=== PATIENT | female | born 1950 | race Caucasian/White ===

== ENCOUNTER 2024-10-05 17:08 | Outpatient (CLI) | payer MEDICARE, SELFPAY ==
--- OUTSIDE RECORDS SUMMARY | 2024-10-05 17:13 | XMS_ITS | Clinical Summary ---
Author Organization [employer] [facility] Address [address] [place] [address] Care Team Providers Care Soil Checker Name Role Phone Steven Marcelo MD Unavailable Jayla Ontiveros MD Unavailable [phone] Suzanne Mora APRN Primary Care Provider Allergies Active Allergy Reactions Criticality Noted Date Comments Nsaids (Non-Steroidal Anti-Inflammatory Drug) Hives High 11/26/2017 Single kidney---functioning at 50% Valdecoxib 11/26/2017 Medications amLODIPine (NORVASC) 5 MG tabletIndication s:Malignant neoplasm of lower-inner quadrant of left breast in female, estrogen receptor positive (HCC),Asymptomat ic menopausal state Take 1 tablet (5 mg total) by mouth daily. 08/11/2022 Active Eliquis 5 MG tabletIndication s:Malignant neoplasm of lower-inner quadrant of left breast in female, estrogen receptor positive (HCC),Asymptomat ic menopausal state Take 1 tablet (5 mg total) by mouth 2 (two) times daily. 08/21/2022 Active metoprolol succinate (TOPROL-XL) 25 MG 24 hr tabletIndication s:Malignant neoplasm of lower-inner quadrant of left breast in female, estrogen receptor positive (HCC),Asymptomat ic menopausal state Take 1 tablet (25 mg total) by mouth daily. 06/10/2022 Active cholecalciferol (VITAMIN D3) 125 mcg (5,000 unit) capsule Take by mouth. Active ferrous sulfate 325 (65 FE) MG EC tablet Take 1 tablet (325 mg total) by mouth 2 (two) times daily. 01/31/2023 Active valsartan (DIOVAN) 160 MG tablet Take 1 tablet (160 mg total) by mouth daily. 02/14/2024 Active anastrozole (ARIMIDEX) 1 mg tablet Take 1 tablet (1 mg total) by mouth daily. 90 tablet 3 03/29/2024 Active Active Problems Problem Noted Date Diagnosed Date Elevated TSH 08/13/2024 Assessment & Plan (08/13/2024 3:43 PM EDT): Patient sent for labs for thyroid panel. Subacromial bursitis of left shoulder joint 04/08 Pigmented skin lesion suspicious for malignant n eoplasm 02/08/2023 Localized osteoarthritis of left knee 01/06/2023 At risk for sleep apnea 12/24/2022 Atrial fibrillation 12/24/2022 Disease due to severe acute respiratory syndrome coronavirus 2 (SARS-CoV-2) 12/24/2022 Overview (12/24/2022): 1Problem added by a rule: [id number]. Kidney disease 11/25/2022 Pain of right mastoid 11/14/2022 Acute serous otitis media, r ecurrence not specified, unspecified laterality 11/14/2022 Coronary artery disease invo lving upper [place] heart without angina pectoris, unspecified vessel or lesion type 10/11/2022 Need for shingles vaccine 10/11/2022 Other specified hypothyroidism 10/10/2022 Mixed hyperlipidemia 10/10/2022 Malignant neoplasm of lower- inner quadrant of left breast in female, estrogen receptor positive 09/01/2022 Cancer Staging:Pathologic stage from 08/17/2022:Stage IA(pT1a, pN0(sn), cM0, G1, ER+, ID+, HER2-) - Signed by Osvaldo Flood MD on 09/07/2022 Clinical stage from 09/01/2022:Stage IA(cT1a, cN0(sn), cM0, G1, ER+, ID+, HER2-) - Signed by Jayla Ontiveros MD on 09/01/2022 Asymptomatic menopausal state 09/01/2022 Acute upper respiratory infection 07/22/2021 Sore throat 07/22/2021 Acute headache 04/17/2021 Impairment of balance 04/17/2021 Chronic kidney disease 03/10/2021 Knee pain 11/04/2020 History of colonic polyps 03/10/2020 Osteopenia 03/07/2020 Encounter for screening for cardiovascular disor ders 03/04/2020 Arthritis 03/04/2020 Sick sinus syndrome 03/04/2020 Tubular adenoma of colon 03/04/2020 Sciatica 02/27/2020 Low back pain 01/21/2020 Muscle strain 01/21/2020 Recurrent urinary tract infection 01/21/2020 Acute urinary tract infection 11/13/2019 Anemia 11/13/2019 Dehydration 11/13/2019 Personal history of urinary (tract) infections 0 11/13/2019 Hypertension 03/09/2018 Assessment & Plan (08/13/2024 3:42 PM EDT): Plan/dicussed with patient: 2 gram sodium diet, lose weight, exercise, no smoking, continue home medications and take 81 mg aspirin daily. 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 Discharge Disposition: Home or Self Care 09/06/2024 2:45 PM EDT [facility] [address] [place] [phone] Steven Marcelo MD History of breast cancer (Primary Dx) 09/06/2024 1:51 PM EDT - 09/06/2024 2:59 PM EDT Hospital Encounter [facility] [address] [place] [address] Steven Marcelo MD History of breast cancer Discharge Disposition: Home or Self Care 09/06/2024 Outside Orders [facility] [address] [place] [address] Steven Marcelo MD History of breast cancer (Primary Dx) 08/13/2024 3:30 PM EDT Office Visit [facility] [address] [place] [address] Sree Murry MD Primary hypertension (Primary Dx); Elevated TSH 08/13/2024 Patient Outreach [facility] [address] [place] [address] Stefania Rojo CHW 08/13/2024 Travel from Last 3 Months Immunizations Name Administration Dates Next Due (Shingrix, Recombinant, Adju vanted) Zoster Vaccine IM 10/14/2022(Deferred: Other - Pt will get at the pharmacy) Influenza High Dose Preserva tive Free IM ([id number]) 08/25/2021,07/31/2020 Influenza, High Dose Seasonal 09/21/2022 Pneumococcal Conjugate (Prev bel) 13-Valent 09/28/2019 Pneumococcal Polysaccharide (Pneumovax) 09/28/2020 Tdap 10/14/2022(Deferred: Other - Pt will get at the pharmacy) Family History Medical History Relation Name Comments Breast cancer Neg Hx Ovarian cancer Neg Hx Relation Name Status Comments Father Alive Mother Alive Social History Tobacco Use Types Packs/Day Years Used Date Smoking Tobacco: Never Smokeless Tobacco: Never Tobacco Cessation:Counseling Given: Not Answered Alcohol Use Standard Drinks/Week Comments Not Currently 0 (1 standard drink = 0.6 oz pur e alcohol) Overall Financial Resource Strain (CARDIA) Answe r Date Recorded How hard is it for you to pa y for the very basics like food, housing, medical care, and heating? Not hard at all 08/13/2024 PHQ-2 Answer Date Recorded Patient Health Questionnaire-2 Score 0 01/18/2024 Hunger Vital Sign Answer Date Recorded Within the past 12 months, y ou worried that your food would run out before you got the money to buy more. Never true 08/13/20 24 Within the past 12 months, t he food you bought just didn't last and you didn't have money to get more. Never true 08/13/2024 PRAPARE - Transportation Answer Date Re corded In the past 12 months, has l ack of transportation kept you from medical appointments or from getting medications? No 05/2024 In the past 12 months, has l ack of transportation kept you from meetings, work, or from getting things needed for daily living? No 08/13/2024 Housing Stability Vital Sign Answer Yossi e Recorded In the last 12 months, was t here a time when you were not able to pay the mortgage or rent on time? No 08/13/2024 Number of Places Lived in the Last Year Not on f ile 08/13/2024 In the last 12 months, was t here a time when you did not have a steady place to sleep or slept in a fpc (including now)? No 08/13/2024 Interpersonal Safety Answer Date Record ed Family or friends hurt you Not on file 11/16 Family or friends insult you Not on file 08/2024 Family or friends threaten you Not on file 0 11/16/2023 Family or friends scream or curse at you Not on file 11/16/2023 Housing Stability Answer Date Recorded Living situation today Not on file Living situation problems Not on file 2023 Food Insecurity Answer Date Recorded Food run out past 12 months Not on file 11/07 Food did not last past 12 months Not on file 11/16/2023 Transportation Needs Answer Date Record ed Transportation unreliable past 12 months Not on file 08/14/2024 Employment Answer Date Recorded Help finding and keeping a job Not on file 0 11/16/2023 Family and Community Support Answer Yossi e Recorded Help with Day to Day Activities Not on file 11/16/2023 Feeling Lonely or Isolated Not on file 11/16 Educational Attainment Answer Date Martinez rded Speak language other than Citizen Of [place] at home Not on file 11/16/2023 Want help with school or training Not on file 11/16/2023 Depression Answer Date Recorded PHQ-2 Risk Not on file 11/16/2023 Disabilities Answer Date Recorded Difficulty concentrating Not on file 024 Difficulty doing errands alone Not on file 0 11/16/2023 Substance Use Answer Date Recorded Used prescription meds for non-medical reasons N ot on file 11/16/2023 Used illegal drugs past 12 months Not on file 11/16/2023 Comments No Sex and Gender Information Value Date Recorded Sex Assigned at Not on file Legal Sex Female 4:30 PM CDT Gender Identity Not on file Sexual Orientation Not on file Last Filed Vital Signs Vital Sign Reading Time Taken Comments Blood Pressure 127/83 08/13/2024 3:17 PM EDT Pulse 67 08/13/2024 3:17 PM EDT Temperature 35.9 ??C (96.7 ??F) 08/13/2024 3:17 PM ED T Respiratory Rate 17 07/02/2024 2:37 PM EDT Oxygen Saturation 96% 08/13/2024 3:17 PM EDT Inhaled Oxygen Concentration - - Weight 56.7 kg (125 lb) 08/13/2024 3:17 PM EDT Height 170.2 cm (5' 7 ) 07/02/2024 2:37 PM EDT Body Mass Index 19.58 07/02/2024 2:37 PM EDT Plan of Treatment Upcoming Encounters Date Type Department Care Team (Late st Contact Info) Description 01/15/2025 2:45 PM EDT Office Visit [facility] [place] [phone] [facility] [address] [place] [phone] Jayla Ontiveros MD [address] [place] [address] 09/19/2025 2:30 PM EST Appointment [facility] [address] [place] [address] Health Maintenance Due Date Last Done Comments CT Colonography 1952 Colonoscopy 1952 Colorectal Cancer Screening 1952 FOBT/FIT 1952 Fit-DNA (Cologuard) 1950 Sigmoidoscopy 1952 Statin - ASCVD Risk Prevention 1992 Falls Risk Screening 11/07/2023 10/08/2022 COVID-19 VACCINE ( - season) 2024 10/17/2021, 03/13/2021, 02/11/2021 Influenza Vaccine (#1) 2024 , 08/25/2021, 07/31/2020 DTAP/TDAP/TD VACCINES (1 - Tdap) 01/04/2025 Postponed from 1971 (Patient Refused) Medicare Subsequent Wellness (year 3+) 01/04/2025 01/04/2024 Depression Screening (12+) 01/17/2025 01/18/2024 Tobacco Cessation Counseling and Screening (12+) 09/05/2025 09/05/2024 Breast Cancer Screening 09/06/2025 09/06/20, 09/01/2023, 02/24/2023, Additional history exists DXA SCAN 09/06/2026 09/06/2024, 11/08, 08/07/2020 Pneumococcal 65+ years Completed 09/28/2020, 2018 Hepatitis C Screening Addressed 10/08/2022 Overri dden with the intention of not completing the topic Respiratory Syncytial Virus (RSV) Adult or Discontinued Shingles Vaccine (Zoster) Discontinued Procedures Procedure Name Priority Date/Time Associated Diagnosis Comments DXA BONE DENSITY SPINE AND HIP Routine 09/06/2024 4:02 PM EDT 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 US BREAST RIGHT LIMITED Routine 09/06/2024 3:57 PM EDT History of breast cancer MM DIGITAL MAMMO DIAGNOSTIC WITH JOSE ALBERTO BILATERAL Routine 09/06/2024 2:28 PM EDT History of breast cancer CBC W/PLT COUNT & AUTO DIFFERENTIAL Routine 08/13/2024 3:45 PM EDT Primary hypertension COMPREHENSIVE METABOLIC PANEL Routine 08/13/2024 3:45 PM EDT Primary hypertension T3, FREE Routine 08/13/2024 3:45 PM EDT Elevated TSH T4 Routine 08/13/2024 3:45 PM EDT Elevated TSH TSH Routine 08/13/2024 3:45 PM EDT Elevated TSH from Last 3 Months Results * DXA bone density spine and hip (09/06/2024 4:02 PM EDT) Anatomical Region Laterality Modality Bone Dual-energy X-ra y absorptiometry (DEXA) 09/06/2024 4:26 PM EDT Impressions 09/06/2024 4:35 PM EDT 1. Osteopenia BMD of the lumbar spine. 2. Osteopenia BMD of the left femoral neck. FRAX evaluation gives the risk of a major osteoporotic fracture over 10 years as 9.7% and the risk of a hip fracture as 2.0%. Images reviewed, interpreted, and dictated by Dr. Avila Niño. Transcribed by Agustín Goins PA-C. Narrative 09/06/2024 4:35 PM EDT BONE MINERAL DENSITOMETRY, DEXA SCAN . CLINICAL HISTORY: Osteoporosis screening. COMPARISON: 11/29/2022. FINDINGS: Bone densitometry calculations of the lumbar spine and left femoral neck were obtained. Average BMD for the lumbar spine from L1-L4 is 1.018 g/sq cm. T-score is -1.4. Z-score is 0.5. Lumbar bone mineral density has decreased 6.7% from the prior study. Left femoral neck BMD is 0.791 g/sq cm. T-score is -1.8. Z score is 0.2. Bone mineral density has not statistically significantly changed since the prior study. Procedure Note Olivier Niño MD - 09/06/2024 BONE MINERAL DENSITOMETRY, DEXA SCAN . CLINICAL HISTORY: Osteoporosis screening. COMPARISON: 11/29/2022. FINDINGS: Bone densitometry calculations of the lumbar spine and left femoral neck were obtained. Average BMD for the lumbar spine from L1-L4 is 1.018 g/sq cm. T-score is -1.4. Z-score is 0.5. Lumbar bone mineral density has decreased 6.7% from the prior study. Left femoral neck BMD is 0.791 g/sq cm. T-score is -1.8. Z score is 0.2. Bone mineral density has not statistically significantly changed since the prior study. IMPRESSION: 1. Osteopenia BMD of the lumbar spine. 2. Osteopenia BMD of the left femoral neck. FRAX evaluation gives the risk of a major osteoporotic fracture over 10 years as 9.7% and the risk of a hip fracture as 2.0%. Images reviewed, interpreted, and dictated by Dr. Avila Niño. Transcribed by Agustín Goins PA-C. us Jayla Ontiveros MD IMG DXA ORDERABLES Final Resul t * US BREAST RIGHT LIMITED (09/06/2024 3:57 PM EDT) Anatomical Region Laterality Modality Breast Right Ultrasound 09/06/2024 4:00 PM EDT Impressions 09/06/2024 4:04 PM EDT FINAL IMPRESSION: Stable mammogram. No findings suspicious for malignancy. Bi-RADS: ACR BI-RADS 2: Benign findings. RECOMMENDATIONS: Screening mammography in 12 months This report will serve as the order for the recommended imaging studies/procedures. At our facility, a [place] marker is positioned over a visible skin lesion and a linear marker is The results and recommendations were discussed with the patient on the day of her appointment. In addition, a written report in lay terms, including density notification, ??was given to the patient. Patient information was entered into a reminder system with a target due date for the next mammogram. Narrative 09/06/2024 4:04 PM EDT PROCEDURE: Bilateral diagnostic mammogram with Digital Breast Tomosynthesis (DBT). Focused right ultrasound REASON FOR EXAM: 73-year-old female post left lumpectomy in 2021. Most recently the patient underwent excision of a benign mass in the lower inner quadrant of the left breast. FAMILY HISTORY: ??No family history of breast cancer COMPARISON STUDY: [facility] 2022 through 2015 FINDINGS: Craniocaudal and mediolateral oblique images of both breasts were obtained in 2D and DBT modes. Synthesized views were reconstructed from DBT data. The breast tissue has pattern b (scattered fibroglandular densities). New surgical changes are present in the lower inner quadrant of the left breast. There is no mass, group of calcifications, or distortion to suggest malignancy on the left. Pacemaker battery obscures a portion of the left axilla. On the right areas of increased nodularity effaced with additional spot compression imaging. Ultrasound of the 12:00 region of the left breast was performed superficially due to an area of more focal nodularity. No sonographic finding was present. This examination was reviewed with the benefit of computer aided detection (CAD). us Steven Marcelo MD IMG US ORDERABLES Final Resu lt * MM digital mammo diagnostic with jose alberto bilateral (09/06/2024 2:28 PM EDT) Anatomical Region Laterality Modality Breast Bilateral Mammography 09/06/2024 4:00 PM EDT Impressions 09/06/2024 4:04 PM EDT FINAL IMPRESSION: Stable mammogram. No findings suspicious for malignancy. Bi-RADS: ACR BI-RADS 2: Benign findings. RECOMMENDATIONS: Screening mammography in 12 months This report will serve as the order for the recommended imaging studies/procedures. At our facility, a [place] marker is positioned over a visible skin lesion and a linear marker is The results and recommendations were discussed with the patient on the day of her appointment. In addition, a written report in lay terms, including density notification, ??was given to the patient. Patient information was entered into a reminder system with a target due date for the next mammogram. Narrative 09/06/2024 4:04 PM EDT PROCEDURE: Bilateral diagnostic mammogram with Digital Breast Tomosynthesis (DBT). Focused right ultrasound REASON FOR EXAM: 73-year-old female post left lumpectomy in 2021. Most recently the patient underwent excision of a benign mass in the lower inner quadrant of the left breast. FAMILY HISTORY: ??No family history of breast cancer COMPARISON STUDY: [facility] 2022 through 2015 FINDINGS: Craniocaudal and mediolateral oblique images of both breasts were obtained in 2D and DBT modes. Synthesized views were reconstructed from DBT data. The breast tissue has pattern b (scattered fibroglandular densities). New surgical changes are present in the lower inner quadrant of the left breast. There is no mass, group of calcifications, or distortion to suggest malignancy on the left. Pacemaker battery obscures a portion of the left axilla. On the right areas of increased nodularity effaced with additional spot compression imaging. Ultrasound of the 12:00 region of the left breast was performed superficially due to an area of more focal nodularity. No sonographic finding was present. This examination was reviewed with the benefit of computer aided detection (CAD). us Steven Marcelo MD IMG MAMMOGRAPHY ORDERABLES F inal Result * CBC with platelet count + automated diff (08/13/2024 3:45 PM EDT) WBC 5.5 3.4 - 10.8 x10E3/uL [facility] RBC 4.19 3.77 - 5.28 x10E6/uL [facility] Hemoglobin 12.5 11.1 - 15.9 g/dL [facility] Hematocrit 38.9 34.0 - 46.6 % [facility] MCV 93 79 - 97 fL [facility] MCH 29.8 26.6 - 33.0 pg [facility] MCHC 32.1 31.5 - 35.7 g/dL [facility] RDW 12.9 11.7 - 15.4 % [facility] Platelets 177 150 - 450 x10E3/uL [facility] % Neutros 58 Not Estab. % [facility] % Lymphs 28 Not Estab. % [facility] % Monos 9 Not Estab. % [facility] % Eos 4 Not Estab. % [facility] % Baso 1 Not Estab. % [facility] # Neutros 3.2 1.4 - 7.0 x10E3/uL [facility] # Lymphs 1.6 0.7 - 3.1 x10E3/uL [facility] # Monos 0.5 0.1 - 0.9 x10E3/uL [facility] # Eos 0.2 0.0 - 0.4 x10E3/uL [facility] Baso (Absolute) 0.1 0.0 - 0.2 x10E3/uL [facility] % Immature Grans 0 Not Estab. % [facility] # Immature Grans 0.0 0.0 - 0.1 x10E3/uL [facility] Blood 08/13/2024 3:45 PM EDT 08/13/2024 Narrative [facility] - 08/14/2024 8:12 AM EDT Performed at: ??01 - [address] ??[id number] Ob Scrub Tech: Tomas Arechiga PhD, Phone: ??[phone] Sree Murry MD LAB BLOOD ORDERABLES Final Resul t Performing Organization Address [facility] de Phone Number [facility] * T3, free (08/13/2024 3:45 PM EDT) Triiodothyronin e,Free,Serum 2.8 2.0 - 4.4 pg/mL [facility] Blood 08/13/2024 3:45 PM EDT 08/13/2024 Narrative [facility] - 08/14/2024 8:12 AM EDT Performed at: ??01 - [address] ??[id number] Ob Scrub Tech: Tomas Arechiga PhD, Phone: ??[phone] Sree Murry MD LAB BLOOD ORDERABLES Final Resul t Performing Organization Address [facility] Phone Number [facility] * (ABNORMAL) TSH (08/13/2024 3:45 PM EDT) TSH 4.640(H) 0.450 - 4.500 uIU/mL [facility] Blood 08/13/2024 3:45 PM EDT 08/13/2024 Narrative [facility] - 08/14/2024 8:12 AM EDT Performed at: ??01 - [address] ??[id number] Ob Scrub Tech: Tomas Arechiga PhD, Phone: ??[phone] Sree Murry MD LAB BLOOD ORDERABLES Final Resul t Performing Organization Address [facility] de Phone Number [facility] * T4 (08/13/2024 3:45 PM EDT) Thyroxine (T4) 5.8 4.5 - 12.0 ug/dL [facility] Blood 08/13/2024 3:45 PM EDT 08/13/2024 Narrative [facility] - 08/14/2024 8:12 AM EDT Performed at: ??01 - [facility] ??[id number] Ob Scrub Tech: Tomas Arechiga PhD, Phone: ??[phone] us Sree Murry MD LAB BLOOD ORDERABLES Final Resul t [facility] * (ABNORMAL) Comprehensive metabolic panel (08/13/2024 3:45 PM EDT) Glucose, Serum 89 70 - 99 mg/dL [facility] BUN 24 8 - 27 mg/dL [facility] Creatinine, Serum 1.30(H) 0.57 - 1.00 mg/dL [facility] EGFR 44(L) >59 mL/min/1.7 3 [facility] BUN/Creatinine Ratio 18 12 - 28 [facility] Sodium, Serum 138 134 - 144 mmol/L [facility] Potassium, Serum 4.1 3.5 - 5.2 mmol/L [facility] Chloride, Serum 100 96 - 106 mmol/L [facility] Carbon Dioxide, Total 26 20 - 29 mmol/L [facility] Calcium, Serum 9.7 8.7 - 10.3 mg/dL [facility] Protein, Total, Serum 6.6 6.0 - 8.5 g/dL [facility] Albumin, Serum 4.5 3.8 - 4.8 g/dL [facility] Globulin, Total 2.1 1.5 - 4.5 g/dL [facility] Bilirubin, Total 0.5 0.0 - 1.2 mg/dL [facility] Alkaline Phosphatase, S 101 44 - 121 IU/L [facility] AST (SGOT) 23 0 - 40 IU/L [facility] ALT (SGPT) 13 0 - 32 IU/L [facility] Blood 08/13/2024 3:45 PM EDT 08/13/2024 Narrative [facility] - 08/14/2024 8:12 AM EDT Performed at: ??01 - [facility] [address] ??[id number] Ob Scrub Tech: Tomas Arechiga PhD, Phone: ??[phone] us Sree Murry MD LAB BLOOD ORDERABLES Final Resul t [facility] from Last 3 Months Insurance [employer] MEDICARE PPO Care Teams Soil Checker Relationship Specialty Start Date End Date Suzanne Mora, [employer] ENGINEER [address] [place] [address] PCP - General Family Medicine 01/04/24 Steven Marcelo MD [address] [place] [address] Surgeon General Surgery 09/07/22 Jayla Ontiveros MD [address] [place] [address] Medical Oncologist Hematology and Oncology 09/07/22
[2024-10-05 17:14] LABS: Coronavirus 19, PCR Not Detected (NotDetected); Influenza A, PCR Not Detected (NotDetected); Influenza B, PCR Not Detected (NotDetected)
--- OUTSIDE RECORDS SUMMARY | 2024-10-05 17:14 | XMS_ITS | Encounter Summary ---
Author Organization [employer] [facility] [place] [facility] Address [address] [place] [address] Care Team Providers Care Pull Through Hooker Name Role Phone Steven Marcelo MD Unavailable [phone] Jayla Ontiveros MD Unavailable [phone] Suzanne Mora APRN Primary Care Provider [phone] Encounter Details Date Type Department Care Team (Latest Contact Info) Description 08/13/2024 Travel Social History Tobacco Use Types Packs/Day Years Used Date Smoking Tobacco: Never Smokeless Tobacco: Never Alcohol Use Standard Drinks/Week Comments Not Currently [...] place to sleep or slept in a long-term (including now)? No 08/13/2024 Interpersonal Safety Answer [...] Date Martinez rded Speak language other than Bhutanese at home Not on file 11/16/2023 Want [...] on file Sexual Orientation Not on file documented as of this encounter Plan of Treatment Upcoming Encounters Date Type Department Care Team (Late st Contact Info) Description 01/15/2025 2:45 PM EDT Office Visit [facility] [place] [address] [place] [address] Jayla Ontiveros MD [address] [facility] [address] [place], [place] [id number] 09/19/2025 2:30 PM EST Appointment [facility] Breast Care [address] [place] [address] documented as of this encounter Visit Diagnoses Not on filedocumented in this encounter Care Teams Pull Through Hooker Relationship Specialty Start Date End Date Suzanne Mora, DOUGH BRAKE MACHINE OPERATOR [address] [place] [address] PCP - General Family Medicine 01/04/24 Steven Marcelo MD [address] [facility] [address] [place] [address] Surgeon General Surgery 09/07/22 Jayla Ontiveros MD [address] [facility] [address] [place] [address] Medical Oncologist Hematology and Oncology 09/07/22 documented as of this encounter
--- OUTSIDE RECORDS SUMMARY | 2024-10-05 17:14 | XMS_ITS | Encounter Summary ---
Author Organization [employer] [facility] Address [address] [place] [address] Care Team Providers Care Casino Host Name Role Phone Steven Marcelo MD Unavailable [phone] Jayla Ontiveros MD Unavailable [phone] Suzanne Mora APRN Primary Care Provider Encounter Details Date Type Department Care Team (Late st Contact Info) Description 08/13/2024 Patient Outreach [facility] Primary Care [address] [place] [address] Stefania Rojo CHW [address] [place], [place] [id number] Social History Tobacco Use Types Packs/Day Years [...] place to sleep or slept in a usp (including now)? No 08/13/2024 Interpersonal Safety Answer [...] rded Speak language other than Citizen Of [place] at home Not on file 11/16/2023 Want [...] Description 01/15/2025 2:45 PM EDT Office Visit [facility] [place] [address] [place] [address] Jayla Ontiveros MD [address] [facility] [address] [place], [place] [id number] 09/19/2025 2:30 PM EST Appointment [facility] Breast [facility] [address] [employer] [facility] [address] [place] [address] documented as of this encounter Visit Diagnoses Not on filedocumented in this encounter Care Teams Casino Host Relationship Specialty Start Date End Date Suzanne Mora, SHIPPING COORDINATOR [address] [place] [address] PCP - General Family Medicine 01/04/24 Steven Marcelo MD [address] [place] [address] Surgeon General Surgery 09/07/22 Jayla Ontiveros MD [address] [facility] [address] [place] [address] Medical Oncologist Hematology and Oncology 09/07/22 documented as of this encounter
--- OUTSIDE RECORDS SUMMARY | 2024-10-05 17:14 | XMS_ITS | Encounter Summary ---
Author Organization [employer] Address [address] [place] [address] Care Team Providers Care Chemistry Intern Name Role Phone Steven Marcelo MD Unavailable [phone] Jayla Ontiveros MD Unavailable [phone] Modesta Valadez RN Unavailable Unavailable Suzanne Mora APRN Primary Care Provider Reason for Visit * Reason Comments New patient Ms. Gil is here a s a new patient for consultation for her gallbladder. She was referred from Suzanne Mora for a gallbladder polyp. She states she will have random right upper quadrant pain that radiates into her back. Spicy, fried or greasy foods do seem to trigger the pain. She states this has been going on for over a year. Denies nausea or vomiting. Encounter Details Date Type Department Care Team (Late st Contact Info) Description 03/07/2024 3:30 PM EDT Office Visit [facility] [address] [facility] [address] [place] [address] Steven Ho MD [address] [facility] [address] [place] [address] Gallbladder polyp (Primary Dx) Social History Tobacco Use Types Packs/Day Years Used Date Smoking Tobacco: Never Smokeless Tobacco: Never Tobacco Cessation:Counseling Given: Not Answered Alcohol Use Standard Drinks/Week Comments Not Currently 0 (1 standard drink = 0.6 oz pur e alcohol) PHQ-2 Answer Date Recorded Patient Health Questionnaire-2 Score 0 01/18/2024 Interpersonal Safety Answer Date Record ed Family [...] past 12 months Not on file 11/16/2023 Employment Answer Date Recorded Help finding and keeping a job Not on file 0 11/16/2023 Family and Community Support Answer Yossi e Recorded Help with Day to Day Activities Not on file 11/16/2023 Feeling Lonely or Isolated Not on file 11/16 Educational Attainment Answer Date Martinez rded Speak language other than German at home Not on file 11/16/2023 Want [...] on file documented as of this encounter Last Filed Vital Signs Vital Sign Reading Time Taken Comments Blood Pressure 130/83 03/07/2024 3:26 PM EDT Pulse 69 03/07/2024 3:26 PM EDT Temperature - - Respiratory Rate - - Oxygen Saturation - - Inhaled Oxygen Concentration - - Weight 56.7 kg (125 lb) 03/07/2024 3:26 PM EDT Height 170.2 cm (5' 7 ) 03/07/2024 3:26 PM EDT Body Mass Index 19.58 03/07/2024 3:26 PM EDT documented in this encounter Progress Notes * Steven Ho MD - 03/07/2024 3:30 PM EDT Subjective: Chief Complaint Patient presents with ??? New patient Ms. Gil is here as a new patient for consultation for her gallbladder. She was referred from Suzanne Mora for a gallbladder polyp. She states she will have random right upper quadrant pain thatradiates into her back. Spicy, fried or greasy foods do seem to trigger the pain. She states this has been going on for over a year. Denies nausea or vomiting. HPI Sheron Carvajal 73 y.o. female referred for evaluation of a small gallbladder polyp. She says she is eating well at this time. She apparently had an episode a while back where she had sharp discomfort in the right side after eating. An ultrasound performed showed a 2 mm gallbladder polyp. She feels well at this point and has no complaints. I have reviewed the PMH, SH, FH, Meds and allergies. Current Outpatient Medications: ??? amLODIPine (NORVASC) 5 MG tablet, Take 1 tablet (5 mg total) by mouth daily., Disp: , Rfl: ??? anastrozole (ARIMIDEX) 1 mg tablet, Take 1 tablet (1 mg total) by mouth daily., Disp: , Rfl: ??? cholecalciferol (VITAMIN D3) 125 mcg (5,000 unit) capsule, Take by mouth., Disp: , Rfl: ??? Eliquis 5 MG tablet, Take 1 tablet (5 mg total) by mouth 2 (two) times daily., Disp: , Rfl: ??? ferrous sulfate 325 (65 FE) MG EC tablet, Take 1 tablet (325 mg total) by mouth 2 (two) times daily., Disp: , Rfl: ??? metoprolol succinate (TOPROL-XL) 25 MG 24 hr tablet, Take 1 tablet (25 mg total) by mouth daily., Disp: , Rfl: ??? valsartan (DIOVAN) 160 MG tablet, Take 1 tablet (160 mg total) by mouth daily., Disp: , Rfl: ??? rwuy-TK-eik-ogz-UPC-KQNM-be-mv 1.5 mg iron- 8.73 mg CpID, iron, Disp: , Rfl: Allergies Allergen Reactions ??? Nsaids (Non-Steroidal Anti-Inflammatory Drug) Hives Single kidney---functioning at 50% ??? Valdecoxib Past Surgical History: Procedure Laterality Date ??? BREAST BIOPSY ??? BREAST LUMPECTOMY Left 2021 ??? LUMPECTOMY,SENTINAL NODE Left 08/17/2022 Procedure: LUMPECTOMY, BREAST, WITH SENTINEL LYMPH NODE BIOPSY WITH NEEDLE LOC; Surgeon: Steven Marcelo MD; Location: [facility]; Service: General Surgery; Laterality: Left; ??? pace maker 2019 Past Medical History: Diagnosis Date ??? Anemia ??? Atrial fibrillation (HCC) ??? Chronic kidney disease ??? H/O tubal ligation 1983 ??? Heart disease ??? Hypertension Social History Socioeconomic History ??? Marital status: Single Spouse name: Not on file ??? Number of children: Not on file ??? Years of education: Not on file ??? Highest education level: Not on file Occupational History ??? Not on file Tobacco Use ??? Smoking status: Never ??? Smokeless tobacco: Never Vaping Use ??? Vaping Use: Never used Substance and Sexual Activity ??? Alcohol use: Not Currently ??? Drug use: Never ??? Sexual activity: Never Other Topics Concern ??? Not on file Social History Narrative ??? Not on file Social Determinants of Health Financial Resource Strain: Not on file Food Insecurity: No Food Insecurity (11/16/2023) Food Insecurity ??? : Not on file ??? : Not on file Transportation Needs: Not on file Physical Activity: Not on file Stress: Not on file Social Connections: Low Risk (11/16/2023) Family and Community Support ??? : Not on file ??? : Not on file Intimate Partner Violence: Not on file Housing Stability: Low Risk (11/16/2023) Housing Stability ??? : Not on file ??? : Not on file Family History Problem Relation Age of Onset ??? Breast cancer Neg Hx ??? Ovarian cancer Neg Hx Results: Recent Results (from the past 1008 hour(s)) T3, free Collection Time: 02/07/24 3:30 PM Result Value Ref Range Triiodothyronine,Free,Serum 3.1 2.0 - 4.4 pg/mL T4, free Collection Time: 02/07/24 3:30 PM Result Value Ref Range T4,Free(Direct) 1.11 0.82 - 1.77 ng/dL Thyroxine (T4) 6.6 4.5 - 12.0 ug/dL TSH Collection Time: 02/07/24 3:30 PM Result Value Ref Range TSH 5.710 (H) 0.450 - 4.500 uIU/mL CBC (Hemogram only) Collection Time: 02/07/24 3:30 PM Result Value Ref Range WBC 5.6 3.4 - 10.8 x10E3/uL RBC 4.25 3.77 - 5.28 x10E6/uL Hemoglobin 12.7 11.1 - 15.9 g/dL Hematocrit 38.0 34.0 - 46.6 % MCV 89 79 - 97 fL MCH 29.9 26.6 - 33.0 pg MCHC 33.4 31.5 - 35.7 g/dL RDW 12.6 11.7 - 15.4 % Platelets 194 150 - 450 x10E3/uL Comprehensive metabolic panel Collection Time: 02/07/24 3:30 PM Result Value Ref Range Glucose, Serum 81 70 - 99 mg/dL BUN 15 8 - 27 mg/dL Creatinine, Serum 1.31 (H) 0.57 - 1.00 mg/dL EGFR 44 (L) >59 mL/min/1.73 BUN/Creatinine Ratio 11 (L) 12 - 28 Sodium, Serum 137 134 - 144 mmol/L Potassium, Serum 4.4 3.5 - 5.2 mmol/L Chloride, Serum 98 96 - 106 mmol/L Carbon Dioxide, Total 23 20 - 29 mmol/L Calcium, Serum 9.8 8.7 - 10.3 mg/dL Protein, Total, Serum 6.9 6.0 - 8.5 g/dL Albumin, Serum 4.5 3.8 - 4.8 g/dL Globulin, Total 2.4 1.5 - 4.5 g/dL A/G Ratio 1.9 1.2 - 2.2 Bilirubin, Total 0.6 0.0 - 1.2 mg/dL Alkaline Phosphatase, S 94 44 - 121 IU/L AST (SGOT) 23 0 - 40 IU/L ALT (SGPT) 14 0 - 32 IU/L Review of Systems Constitutional: Negative. HENT: Negative. Eyes: Negative. Respiratory: Negative. Cardiovascular: Negative. Gastrointestinal: Positive for abdominal pain. Endocrine: Negative. Genitourinary: Negative. Musculoskeletal: Negative. Skin: Negative. Allergic/Immunologic: Negative. Neurological: Negative. Hematological: Negative. Psychiatric/Behavioral: Negative. Objective: BP 130/83 Pulse 69 Ht 1.702 m (5' 7 ) Wt 56.7 kg (125 lb) BMI 19.58 kg/m?? Physical Exam Constitutional: Appearance: Normal appearance. HENT: Head: Normocephalic and atraumatic. Eyes: General: No scleral icterus. Extraocular Movements: Extraocular movements intact. Pupils: Pupils are equal, round, and reactive to light. Cardiovascular: Rate and Rhythm: Normal rate and regular rhythm. Pulses: Normal pulses. Heart sounds: Normal heart sounds. No murmur heard. Pulmonary: Effort: Pulmonary effort is normal. Breath sounds: Normal breath sounds. No wheezing or rhonchi. Abdominal: General: Bowel sounds are normal. There is no distension. Palpations: Abdomen is soft. There is no mass. Tenderness: There is no abdominal tenderness. Hernia: No hernia is present. Musculoskeletal: General: Normal range of motion. Cervical back: Normal range of motion and neck supple. Skin: General: Skin is warm and dry. Coloration: Skin is not jaundiced. Neurological: General: No focal deficit present. Mental Status: She is alert and oriented to person, place, and time. Psychiatric: Mood and Affect: Mood normal. Judgment: Judgment normal. Assessment: 1. Gallbladder polyp 73-year-old female with 2 mm gallbladder polyp. Random episodes of sharp discomfort in the right upper quadrant but fairly infrequent. I told her I doubt her polyp is an issue. She was concerned given her prior history of breast cancer and skin cancer. I suggested she simply have a follow-up ultrasound in a year to to show stability of the polyp. If it continues to grow and approaches a centimeter in diameter, consideration could be given to a cholecystectomy. No results found for this visit on 03/07/24 (from the past 24 hour(s)). Plan: Recommend a follow-up ultrasound the gallbladder in a year or 2. I will leave this to [facility] to [facility]. If patient develops GI tract symptoms, I be happy to see her back for further GI evaluation. documented in this encounter Plan of Treatment Upcoming Encounters Date Type Department Care Team (Late st Contact Info) Description 01/15/2025 2:45 PM EDT Office Visit [facility] [place] [address] [place] [phone] Jayla Ontiveros MD [address] [facility] [address] [place] [address] 09/19/2025 2:30 PM EST Appointment [facility] Breast [facility] Emergency [facility] [address] [place] [address] documented as of this encounter Visit Diagnoses Diagnosis Gallbladder polyp- Primary Cholesterolosis of gallbladder documented in this encounter Care Teams Chemistry Intern Relationship Specialty Start Date End Date Suzanne Mora, CIGARETTE MACHINES MECHANIC [address] [place] [address] PCP - General Family Medicine 01/04/24 Steven Marcelo MD [address] [place] [address] Surgeon General Surgery 09/07/22 Jayla Ontiveros MD [address] [facility] [address] [place] [address] Medical Oncologist Hematology and Oncology 09/07/22 Modesta Valadez, RN Nurse Navigator 03/03/23 03/20/24 documented as of this encounter
--- OUTSIDE RECORDS SUMMARY | 2024-10-05 17:14 | XMS_ITS | Encounter Summary ---
Author Organization [employer] Address [address] [place] [address] Care Team Providers Care Electronic Installer Name Role Phone Steven Marcelo MD Unavailable Jayla Ontiveros MD Unavailable [phone] Suzanne Mora APRN Primary Care Provider Reason for Visit * Reason Onset Date Comments Medication Refill 03/29/2024 Encounter Details Date Type Department Care Team (Late st Contact Info) Description 03/29/2024 Refill [facility] [place] [address] [facility] [address] [place] [phone] Jayla Ontiveros MD [address] [place] [address] Social History Tobacco Use Types Packs/Day Years [...] Date Martinez rded Speak language other than Nepalese at home Not on file 11/16/2023 Want [...] on file documented as of this encounter Miscellaneous Notes * Telephone Encounter - Brad Leggett RN - 03/29/2024 10:57 AM EDT Prescription Refill Name/Strength/Directions: anastrozole 1mg tablet, take 1 tablet by mouth daily Quantity:90 Last Fill Date/Provider:07/07/23 Dr. Ontiveros Last Appt:01/03/24 Next Appt:07/02/24 Requested Pharmacy:[facility] Medication refilled per protocol. documented in this encounter Plan of Treatment Upcoming Encounters Date Type Department Care Team (Late st Contact Info) Description 01/15/2025 2:45 PM EDT Office Visit [facility] [place] [address] [place] [address] Jayla Ontiveros MD [address] [facility] [address] [place] [address] 09/19/2025 2:30 PM EST Appointment [facility] [address] [facility] [address] [place] [address] documented as of this encounter Visit Diagnoses Not on filedocumented in this encounter Care Teams Electronic Installer Relationship Specialty Start Date End Date Suzanne Mora, CODY [address] [facility] [address] [place] [address] PCP - General Family Medicine 01/04/24 Steven Marcelo MD [address] [facility] [address] [place] [address] Surgeon General Surgery 09/07/22 Jayla Ontiveros MD [address] [facility] [address] [place] [address] Medical Oncologist Hematology and Oncology 09/07/22 documented as of this encounter
--- OUTSIDE RECORDS SUMMARY | 2024-10-05 17:14 | XMS_ITS | Encounter Summary ---
Author Organization [employer] Address [address] [place] [address] Care Team Providers Care Extension Forester Name Role Phone Steven Marcelo MD Unavailable [phone] Jayla Ontiveros MD Unavailable [phone] Modesta Valadez RN Unavailable Unavailable Suzanne Mora APRN Primary Care Provider [phone] Reason for Referral * Ultrasound (Routine) - Closed Specialty Diagnoses / Procedures Referred By Contac t Referred To Contact Radiology Diagnoses Right upper quadrant abdominal pain Procedures US abdomen complete Suzanne Mora APRN [address] [place] [address] Phone: tel: fax: [facility] Ultrasound - [address] [place] [address] Phone: tel: fax: Referral ID Status Reason Start Date Expiration Date Visits Re quested Visits Authorized [id number] Closed 01/04/2024 07/02/2024 1 1 Reason for Visit * Ultrasound (Routine) - Closed Specialty Diagnoses / Procedures Referred By Contac t Referred To Contact Radiology Diagnoses Right upper quadrant abdominal pain Procedures US abdomen complete Suzanne Mora APRN [address] [place] [address] Phone: tel: fax: [facility] Ultrasound - [address] [place] [address] Phone: tel: fax: Referral ID Status Reason Start Date Expiration Date Visits Re quested Visits Authorized [id number] Closed 01/04/2024 07/02/2024 1 1 Encounter Details Date Type Department Care Team (Latest Contact Info) Description 01/18/2024 8:37 AM EDT - 01/18/2024 11:59 PM EDT Hospital Encounter [facility] Ultrasound - [address] [place] [address] Suzanne Mora APRN [address] [place] [address] Right upper quadrant abdominal pain Discharge Disposition: Home or Self Care Social History Tobacco Use Types Packs/Day Years [...] Date Martinez rded Speak language other than Sri Lankan at home Not on file 11/16/2023 Want [...] on file documented as of this encounter Medications at Time of Discharge amLODIPine (NORVASC) 5 MG tabletIndications :Malignant neoplasm of lower-inner quadrant of left breast in female, estrogen receptor positive (HCC),Asymptomati c menopausal state Take 1 tablet (5 mg total) by mouth daily. 08/11/2022 cholecalciferol (VITAMIN D3) 125 mcg (5,000 unit) capsule Take by mouth. Eliquis 5 MG tabletIndications :Malignant neoplasm of lower-inner quadrant of left breast in female, estrogen receptor positive (HCC),Asymptomati c menopausal state Take 1 tablet (5 mg total) by mouth 2 (two) times daily. 08/21/2022 ferrous sulfate 325 (65 FE) MG EC tablet Take 1 tablet (325 mg total) by mouth 2 (two) times daily. 01/31/2023 metoprolol succinate (TOPROL-XL) 25 MG 24 hr tabletIndications :Malignant neoplasm of lower-inner quadrant of left breast in female, estrogen receptor positive (HCC),Asymptomati c menopausal state Take 1 tablet (25 mg total) by mouth daily. 06/10/2022 lyon-RN-uwj-epa-F DW-HUKG-aw-mv 1.5 mg iron- 8.73 mg CpID iron 07/02/2024 lisinopriL (PRINIVIL,ZESTRIL ) 40 MG tabletIndications :Malignant neoplasm of lower-inner quadrant of left breast in female, estrogen receptor positive (HCC),Asymptomati c menopausal state Take by mouth. 02/15/2024 omega-3s/dha/epa/ fish oil/D3 (VITAMIN-D + OMEGA-3 ORAL) Vitamin D 02/15/2024 documented as of this encounter Plan of Treatment Upcoming Encounters Date Type Department Care Team (Late st Contact Info) Description 01/15/2025 2:45 PM EDT Office Visit [facility] [address] [place] [address] Jayla Ontiveros MD [address] [place] [address] 09/19/2025 2:30 PM EST Appointment [facility] Breast Care [address] [facility] [facility] [address] [place] [address] documented as of this encounter Procedures Procedure Name Priority Date/Time Associated Diagnosis Comments US ABDOMEN COMPLETE Routine 01/18/2024 9 :09 AM EDT Right upper quadrant abdominal pain documented in this encounter Results * US abdomen complete (01/18/2024 9:09 AM EDT) Anatomical Region Laterality Modality Abdomen Ultrasound 01/18/2024 10:1 1 AM EDT Impressions 01/18/2024 10:22 AM EDT 2 mm polyp in the gallbladder. Right kidney is atrophic. Images reviewed, interpreted, and dictated by Dr. Alberto Schwab. Transcribed by Miroslava Sun PA-C. Narrative 01/18/2024 10:22 AM EDT ABDOMINAL ULTRASOUND, COMPLETE. HISTORY: Acute right upper quadrant abdominal pain. PROCEDURE: Ultrasound images of the abdomen were obtained. FINDINGS: The liver is unremarkable. The gall bladder contains a 2 mm polyp. ??The common duct is normal. The right kidney is atrophic, measuring 5 cm in length and is without hydronephrosis. The left kidney measures 10 cm in length and is normal in echogenicity without hydronephrosis. ??Spleen is unremarkable. ??The aorta is normal in caliber. The vena cava is unremarkable. Procedure Note Alberto Schwab MD - 01/18/2024 ABDOMINAL ULTRASOUND, COMPLETE. HISTORY: Acute right upper quadrant abdominal pain. PROCEDURE: Ultrasound images of the abdomen were obtained. FINDINGS: The liver is unremarkable. The gall bladder contains a 2 mm polyp. The common duct is normal. The right kidney is atrophic, measuring 5 cm in length and is without hydronephrosis. The left kidney measures 10 cm in length and is normal in echogenicity without hydronephrosis. Spleen is unremarkable. The aorta is normal in caliber. The vena cava is unremarkable. IMPRESSION: 2 mm polyp in the gallbladder. Right kidney is atrophic. Images reviewed, interpreted, and dictated by Dr. Alberto Schwab. Transcribed by Miroslava Sun PA-C. us Suzanne Mora APRN IMG US ORDERABLES Final Res ult documented in this encounter Visit Diagnoses Diagnosis Right upper quadrant abdominal pain documented in this encounter Care Teams Extension Forester Relationship Specialty Start Date End Date Suzanne Mora APRN [address] [place] [address] PCP - General Family Medicine 01/04/24 Steven Marcelo MD [address] [place] [address] Surgeon General Surgery 09/07/22 Jayla Ontiveros MD [address] [facility] [address] [place] [address] Medical Oncologist Hematology and Oncology 09/07/22 Rory, Modesta Walsh, RN Nurse Navigator 03/03/23 03/20/24 documented as of this encounter
--- OUTSIDE RECORDS SUMMARY | 2024-10-05 17:14 | XMS_ITS | Encounter Summary ---
Author Organization [employer] Address [address] [place] [address] Care Team Providers Care Senior Web Analyst Name Role Phone Steven Marcelo MD Unavailable Jayla Ontiveros MD Unavailable [phone] Suzanne Mora APRN Primary Care Provider Reason for Visit * Reason Comments Follow-up Pt is here for a thy roid follow up. Encounter Details Date Type Department Care Team (Late st Contact Info) Description 04/23/2024 8:15 AM EDT Office Visit [facility] [address] [place] [address] Suzanne Mora APRN [address] [place] [address] Other specified hypothyroidism (Primary Dx) Social History Tobacco Use Types [...] Date Martinez rded Speak language other than Tajik at home Not on file 11/16/2023 Want [...] Sign Reading Time Taken Comments Blood Pressure 120/94 04/23/2024 8:02 AM EDT Pulse 85 04/23/2024 8:02 AM EDT Temperature 36.7 ??C (98 ??F) 04/23/2024 8:02 AM EDT Respiratory Rate - - Oxygen Saturation 98% 04/23/2024 8:02 AM EDT Inhaled Oxygen Concentration - - Weight 56.7 kg (125 lb) 04/23/2024 8:02 AM EDT Height - - Body Mass Index 19.58 03/07/2024 3:26 PM EDT documented in this encounter Progress Notes * Suzanne Mora APRN - 04/23/2024 8:15 AM EDT Subjective: Sheron Carvajal is a 73 y.o. female who presents for Chief Complaint Patient presents with ??? Follow-up Pt is here for a thyroid follow up. I have reviewed and/or updated the following: HPI: Patient here today for a follow up for her thyroid. She had her labs done last week. She denies any issues or concerns at this time. Objective: BP (!) 120/94 (BP Location: Right arm, Patient Position: Sitting) Pulse 85 Temp 98 ??F (36.7 ??C) (Oral) Wt 56.7 kg (125 lb) SpO2 98% BMI 19.58 kg/m?? Physical Exam Vitals reviewed. Constitutional: Appearance: Normal appearance. She is well-developed and well-groomed. HENT: Head: Normocephalic and atraumatic. Cardiovascular: Rate and Rhythm: Normal rate and regular rhythm. Heart sounds: Normal heart sounds. Pulmonary: Effort: Pulmonary effort is normal. Breath sounds: Normal breath sounds and air entry. Neurological: General: No focal deficit present. Mental Status: She is alert. Cranial Nerves: Cranial nerves 2-12 are intact. Psychiatric: Attention and Perception: Attention and perception normal. Mood and Affect: Mood and affect normal. Speech: Speech normal. Behavior: Behavior normal. Behavior is cooperative. Thought Content: Thought content normal. Assessment/Plan No diagnosis found. No problem-specific Assessment & Plan notes found for this encounter. No orders of the defined types were placed in this encounter. New Prescriptions No medications on file Modified Medications No medications on file Discontinued Medications No medications on file Provider comments: Reviewed labs with patient. She is still hypothyroid with low normal levels. Have recommended that she start Sea Kelp to help improve iodine and possibly lower her TSH. Since she does not want to medicate we discussed that being seen every 6 months is sufficient unless she has anacute issue and needs to be seen sooner. She follows with nephrology for kidney issues and elevatedcreatinine. Return in about 6 months (around 10/23/2024). There are no Patient Instructions on file for this visit. Suzanne Mora APRN documented in this encounter Plan of Treatment Upcoming Encounters Date Type Department Care Team (Late st Contact Info) Description 01/15/2025 2:45 PM EDT Office Visit [facility] - [address] [place] [phone] Jayla Ontiveros MD [address] [place], [place] [id number] 09/19/2025 2:30 PM EST Appointment [facility] [address] [place] [address] documented as of this encounter Visit Diagnoses Diagnosis Other specified hypothyroidism- Primary documented in this encounter Care Teams Senior Web Analyst Relationship Specialty Start Date End Date Suzanne Mora, CODY [address] [facility] [address] [place] [address] PCP - General Family Medicine 01/04/24 Steven Marcelo MD [address] [facility] [address] [place] [address] Surgeon General Surgery 09/07/22 Jayla Ontiveros MD [address] [place] [address] Medical Oncologist Hematology and Oncology 09/07/22 documented as of this encounter
--- OUTSIDE RECORDS SUMMARY | 2024-10-05 17:14 | XMS_ITS | Encounter Summary ---
Author Organization [employer] Address [address] [place] [address] Care Team Providers Care Student Officer Name Role Phone Steven Marcelo MD Unavailable [phone] Jayla Ontiveros MD Unavailable [phone] Modesta Valadez RN Unavailable Unavailable Suzanne Mora APRN Primary Care Provider [phone] Reason for Referral * Surgical (Routine) - Authorized Specialty Diagnoses / Procedures Referred By Jaswinder kan Referred To Contact General Surgery Diagnoses Gallbladder polyp Suzanne Mora APRN [address] [facility] [address] [place] [address] Phone: tel: fax: [facility] [address] [facility] [address] [place] [address] Phone: tel: fax: Referral ID Status Reason Start Date Expiration Date Visits Requested Visits Authorized [id number] Authorized Specialty Services Required 02/15/2024 02/14/2025 1 1 Reason for Visit * Reason Comments Follow-up Pt is here for a 4 w upper [place] f/u. Encounter Details Date Type Department Care Team (Late st Contact Info) Description 02/15/2024 4:00 PM EDT Office Visit [facility] [address] [place] [address] Suzanne Mora APRN [address] [place] [address] Gallbladder polyp (Primary Dx); Other specified hypothyroidism Social History Tobacco Use Types Packs/Day Years [...] rded Speak language other than Citizen Of [place] at home Not on file 11/16/2023 Want [...] Reading Time Taken Comments Blood Pressure 130/83 02/15/2024 3:58 PM EDT Pulse 71 02/15/2024 3:58 PM EDT Temperature 36.3 ??C (97.4 ??F) 02/15/2024 3:58 PM ED T Respiratory Rate - - Oxygen Saturation 97% 02/15/2024 3:58 PM EDT Inhaled Oxygen Concentration - - Weight 58.1 kg (128 lb) 02/15/2024 3:58 PM EDT Height - - Body Mass Index 20.05 01/18/2024 2:01 PM EDT documented in this encounter Progress Notes * Suzanne Mora APRN - 02/15/2024 4:00 PM EDT Subjective: Sheron Carvajal is a 73 y.o. female who presents for Chief Complaint Patient presents with ??? Follow-up Pt is here for a 4 week f/u. I have reviewed and/or updated the following: HPI: Patient here today to follow up on repeat labs for her thyroid. Her level was high a month agobut she did not want to start medications. She also is still having some gallbladder pain and concern about the polyp that the US showed. Objective: BP 130/83 (BP Location: Right arm, Patient Position: Sitting) Pulse 71 Temp 97.4 ??F (36.3 ??C)(Tympanic) Wt 58.1 kg (128 lb) SpO2 97% BMI 20.05 kg/m?? Physical Exam Vitals reviewed. Constitutional: Appearance: Normal appearance. She is well-developed, well-groomed and normal weight. HENT: Head: Normocephalic and atraumatic. Neck: Thyroid: No thyroid mass, thyromegaly or thyroid tenderness. Cardiovascular: Rate and Rhythm: Normal rate and [...] is cooperative. Thought Content: Thought content normal. Results for orders placed or performed in visit on 01/18/24 T3, free Result Value Ref Range Triiodothyronine,Free,Serum 3.1 2.0 - 4.4 pg/mL T4, free Result Value Ref Range T4,Free(Direct) 1.11 0.82 - 1.77 ng/dL Thyroxine (T4) 6.6 4.5 - 12.0 ug/dL TSH Result Value Ref Range TSH 5.710 (H) 0.450 - 4.500 uIU/mL CBC (Hemogram only) Result Value Ref Range WBC 5.6 3.4 - 10.8 x10E3/uL RBC 4.25 3.77 - 5.28 x10E6/uL Hemoglobin 12.7 11.1 - 15.9 g/dL Hematocrit 38.0 34.0 - 46.6 % MCV 89 79 - 97 fL MCH 29.9 26.6 - 33.0 pg MCHC 33.4 31.5 - 35.7 g/dL RDW 12.6 11.7 - 15.4 % Platelets 194 150 - 450 x10E3/uL Comprehensive metabolic panel Result Value Ref Range Glucose, Serum 81 [...] ALT (SGPT) 14 0 - 32 IU/L Assessment/Plan ICD-10-CM ICD-9-CM 1. Gallbladder polyp K82.4 575.6 Ambulatory referral to General Surgery 2. Other specified hypothyroidism E03.8 244.8 T3, free T4, free TSH CBC (Hemogram only) Comprehensive metabolic panel IODINE, SERUM/PLASMA T3, free T4, free TSH CBC (Hemogram only) Comprehensive metabolic panel IODINE, SERUM/PLASMA No problem-specific Assessment & Plan notes found for this encounter. Orders Placed This Encounter Procedures ??? T3, free ??? T4, free ??? TSH ??? CBC (Hemogram only) ??? Comprehensive metabolic panel ??? IODINE, SERUM/PLASMA ??? Ambulatory referral to General Surgery New Prescriptions No medications on file Modified Medications No medications on file Discontinued Medications LISINOPRIL (PRINIVIL,ZESTRIL) 40 MG TABLET Take by mouth. OMEGA-3S/DHA/EPA/FISH OIL/D3 (VITAMIN-D + OMEGA-3 ORAL) Vitamin D Provider comments: Discussed labs. Patient still does not want to go on medications. Educated on iodine, sea kelp, and other supplements and food that can help support her thyroid. She would like to recheck labs in 3 months. She also does not want to do a HIDA scan but is concerned about the polyp. I have referred her to general surgery so that can discuss her options with her. Return in about 3 months (around 05/16/2024), or Hypothyroidism. There are no Patient Instructions on file for this visit. Suzanne Mora APRN documented in this encounter Plan of Treatment Upcoming Encounters Date Type Department Care Team (Late st Contact Info) Description 01/15/2025 2:45 PM EDT Office Visit [facility] - [facility] [address] [facility] [address] [place] [address] Jayla Ontiveros MD [address] [place] [address] 09/19/2025 2:30 PM EST Appointment [address] [place] [address] Scheduled Orders Name Type Priority Associated Diagnoses Orde r Schedule CBC (Hemogram only) Lab Routine Other specified hypothyroidism Expected: 02/15/2024, Expires: 02/14/2025 Scheduled Referrals Name Type Priority Associated Diagnoses Order Schedule Ambulatory referral to General Surgery Outpatient Referral Routine Gallbladder polyp Ordered: 02/15/2024 documented as of this encounter Procedures Procedure Name Priority Date/Time Associated Diagnosis Comments IODINE, SERUM/PLASMA Routine 04/16/2024 3:41 PM EDT Other specified hypothyroidism CBC (HEMOGRAM ONLY) Routine 04/16/2024 3 :41 PM EDT T3, FREE Routine 04/16/2024 3:41 PM EDT Other specified hypothyroidism TSH Routine 04/16/2024 3:41 PM EDT Other specified hypothyroidism T4, FREE Routine 04/16/2024 3:41 PM EDT Other specified hypothyroidism COMPREHENSIVE METABOLIC PANEL Routine 04/16/2024 3:41 PM EDT Other specified hypothyroidism documented in this encounter Results * CBC (Hemogram only) (04/16/2024 3:41 PM EDT) Pathologist [facility] WBC 6.0 3.4 - 10.8 x10E3/uL [facility] RBC 4.29 3.77 - 5.28 x10E6/uL [facility] Hemoglobin 12.6 11.1 - 15.9 g/dL [facility] Hematocrit 38.7 34.0 - 46.6 % [facility] MCV 90 79 - 97 fL [facility] MCH 29.4 26.6 - 33.0 pg [facility] MCHC 32.6 31.5 - 35.7 g/dL [facility] RDW 12.6 11.7 - 15.4 % [facility] Platelets 202 150 - 450 x10E3/uL [facility] 04/16/2024 3:41 PM EDT 04/16/2024 Narrative [facility] - 04/18/2024 9:06 PM EDT Performed at: ??01 - [facility] [address] ??[id number] Customer Success Representative: Tomas Arechiga PhD, Phone: ??[phone] Suzanne Mora APRN LAB BLOOD ORDERABLES Final Result Performing Organization Address [facility] de Phone Number [facility] * IODINE, SERUM/PLASMA (04/16/2024 3:41 PM EDT) [facility] Iodine, Serum or Plasma 43.8 40.0 - 92.0 ug/L [facility] Comment:Limit of quantitatio n = 20 Blood 04/16/2024 3:41 PM EDT 04/16/2024 Narrative [facility] - 04/18/2024 9:06 PM EDT Test(s) 202105-[id number], Serum or Plasma was developed and its performance characteristics determined by [facility]. It has not been cleared or approved by the Food and Drug Administration. Performed at: ??02 - [facility] [address] ??[id number] Customer Success Representative: Hector Ashby MD, Phone: ??[phone] Suzanne Mora APRN LAB BLOOD ORDERABLES Final Result Performing Organization Address [facility] de Phone Number [facility] * (ABNORMAL) Comprehensive metabolic panel (04/16/2024 3:41 PM EDT) Pathologist [facility] Glucose, Serum 81 70 - 99 mg/dL [facility] BUN 18 8 - 27 mg/dL [facility] Creatinine, Serum 1.20(H) 0.57 - 1.00 mg/dL [facility] EGFR 48(L) >59 mL/min/1.7 3 [facility] BUN/Creatinine Ratio 15 12 - 28 [facility] Sodium, Serum 137 134 - 144 mmol/L [facility] Potassium, Serum 4.4 3.5 - 5.2 mmol/L [facility] Chloride, Serum 99 96 - 106 mmol/L [facility] Carbon Dioxide, Total 24 20 - 29 mmol/L [facility] Calcium, Serum 9.6 8.7 - 10.3 mg/dL [facility] Protein, Total, Serum 6.5 6.0 - 8.5 g/dL [facility] Albumin, Serum 4.2 3.8 - 4.8 g/dL [facility] Globulin, Total 2.3 1.5 - 4.5 g/dL [facility] A/G Ratio 1.8 [facility] Bilirubin, Total 0.4 0.0 - 1.2 mg/dL [facility] Alkaline Phosphatase, S 100 44 - 121 IU/L [facility] AST (SGOT) 22 0 - 40 IU/L [facility] ALT (SGPT) 15 0 - 32 IU/L [facility] Blood 04/16/2024 3:41 PM EDT 04/16/2024 Narrative [facility] - 04/18/2024 9:06 PM EDT Performed at: ??01 - [facility] ??[id number] Customer Success Representative: Tomas Arechiga PhD, Phone: ??[phone] Suzanne Mora APRN LAB BLOOD ORDERABLES Final Result Performing Organization Address [facility] de Phone Number [facility] * (ABNORMAL) TSH (04/16/2024 3:41 PM EDT) [facility] TSH 5.450(H) 0.450 - 4.500 uIU/mL [facility] Blood 04/16/2024 3:41 PM EDT 04/16/2024 Narrative [facility] - 04/18/2024 9:06 PM EDT Performed at: ??01 - [facility] ??[id number] Customer Success Representative: Tomas Arechiga PhD, Phone: ??[phone] Suzanne Mora APRN LAB BLOOD ORDERABLES Final Result Performing Organization Address [facility] de Phone Number [facility] * T4, free (04/16/2024 3:41 PM EDT) T4,Free(Direct) 1.15 0.82 - 1.77 ng/dL [facility] Thyroxine (T4) 6.8 4.5 - 12.0 ug/dL [facility] Blood 04/16/2024 3:41 PM EDT 04/16/2024 Narrative [facility] - 04/18/2024 9:06 PM EDT Performed at: ??01 - [facility] [address] ??[id number] Customer Success Representative: Tomas Arechiga PhD, Phone: ??[phone] Suzanne Mora APRN LAB BLOOD ORDERABLES Final Result Performing Organization Address [facility] de Phone Number [facility] * T3, free (04/16/2024 3:41 PM EDT) Pathologist [facility] Triiodothyronin e,Free,Serum 3.0 2.0 - 4.4 pg/mL [facility] Blood 04/16/2024 3:41 PM EDT 04/16/2024 Narrative [facility] - 04/18/2024 9:06 PM EDT Performed at: ??01 - [facility] ??[id number] Customer Success Representative: Tomas Arechiga PhD, Phone: ??[phone] Suzanne Mora APRN LAB BLOOD ORDERABLES Final Result Performing Organization Address [facility] Co de Phone Number [facility] documented in this encounter Visit Diagnoses Diagnosis Gallbladder polyp- Primary Cholesterolosis of gallbladder Other specified hypothyroidism documented in this encounter Care Teams Student Officer Relationship Specialty Start Date End Date Suzanne Mora APRN [address] [place] [address] PCP - General Family Medicine 01/04/24 Steven Marcelo MD [address] [place] [address] Surgeon General Surgery 09/07/22 Jayla Ontiveros MD [address] [place] [address] Medical Oncologist Hematology and Oncology 09/07/22 Rory, Modesta Walsh RN Nurse Navigator 03/03/23 03/20/24 documented as of this encounter
--- OUTSIDE RECORDS SUMMARY | 2024-10-05 17:14 | XMS_ITS | Encounter Summary ---
Author Organization [employer] Address [address] [place] [address] Care Team Providers Care Cabin Cleaner Name Role Phone Steven Marcelo MD Unavailable [phone] Jayla Ontiveros MD Unavailable [phone] Suzanne Mora APRN Primary Care Provider [phone] Reason for Referral * Mammography (Routine) - Closed Specialty Diagnoses / Procedures Referred By Jaswinder kan Referred To Contact Diagnoses History of breast cancer Procedures MM digital mammo diagnostic with jose alberto bilateral MM digital mammo diagnostic bilateral Steven Marcelo MD [address] [place] [address] Phone: tel: fax: Referral ID Status Reason Start Date Expiration Date Visits Re quested Visits Authorized [id number] Closed 09/01/2023 02/28/2024 1 1 Reason for Visit * Mammography (Routine) - Closed Specialty Diagnoses / Procedures Referred By Jaswinder kan Referred To Contact Diagnoses History of breast cancer Procedures MM digital mammo diagnostic with jose alberto bilateral MM digital mammo diagnostic bilateral Steven Marcelo MD [address] [place] [phone] Phone: tel: fax: Referral ID Status Reason Start Date Expiration Date Visits Re quested Visits Authorized [id number] Closed 09/01/2023 02/28/2024 1 1 Encounter Details Date Type Department Care Team (Latest Contact Info) Description 09/06/2024 1:51 PM EDT - 09/06/2024 2:59 PM EDT Hospital Encounter [facility] [address] [place] [address] Steven Marcelo MD [address] [place] [address] History of breast cancer Discharge Disposition: Home or Self Care Social [...] place to sleep or slept in a assisted (including now)? No 08/13/2024 Interpersonal Safety Answer [...] Date Martinez rded Speak language other than [place] at home Not on file 11/16/2023 Want [...] (5 mg total) by mouth daily. 08/11/2022 anastrozole (ARIMIDEX) 1 mg tablet Take 1 tablet (1 mg total) by mouth daily. 90 tablet 3 03/29/2024 cholecalciferol (VITAMIN D3) 125 mcg (5,000 unit) [...] (25 mg total) by mouth daily. 06/10/2022 valsartan (DIOVAN) 160 MG tablet Take 1 tablet (160 mg total) by mouth daily. 02/14/2024 documented as of this encounter Plan of Treatment Upcoming Encounters Date Type Department Care Team (Late st Contact Info) Description 01/15/2025 2:45 PM EDT Office Visit [facility] - [address] [place] [phone] Jayla Ontiveros MD [address] [place] [address] [address] [place] [address] 09/19/2025 2:30 PM EST Appointment [facility] [address] [facility] [address] [place] [address] documented as of this encounter Procedures Procedure Name Priority Date/Time Associated Diagnosis Comments MM DIGITAL MAMMO DIAGNOSTIC WITH JOSE ALBERTO BILATERAL Routine 09/06/2024 2:28 PM EDT History of breast cancer documented in this encounter Results * MM digital mammo diagnostic with jose [...] recommended imaging studies/procedures. At our facility, a upper mattaponi marker is positioned over a visible skin [...] family history of breast cancer COMPARISON STUDY: [facility] 2022 through 2015 FINDINGS: Craniocaudal [...] MD IMG MAMMOGRAPHY ORDERABLES F inal Result documented in this encounter Visit Diagnoses Diagnosis History of breast cancer Personal history of malignant neoplasm of breast documented in this encounter Care Teams Cabin Cleaner Relationship Specialty Start Date End Date Suzanne Mora APRN [address] [place] [address] PCP - General Family Medicine 01/04/24 Steven Marcelo MD [address] [place] [address] Surgeon General Surgery 09/07/22 Jayla Ontiveros MD [address] [facility] [address] [place] [address] Medical Oncologist Hematology and Oncology 09/07/22 documented as of this encounter
--- OUTSIDE RECORDS SUMMARY | 2024-10-05 17:14 | XMS_ITS | Encounter Summary ---
Author Organization [employer] Address [address] [place] [address] Care Team Providers Care General Accountant Name Role Phone Steevn Marcelo MD Unavailable [phone] Jayla Ontiveros MD Unavailable [phone] Modesta Valadez RN Unavailable Unavailable Suzanne Mora APRN Primary Care Provider [phone] Reason for Referral * CAT Scan (Routine) - Pending Review Specialty Diagnoses / Procedures Referred By Contac t Referred To Contact Radiology Diagnoses Pulmonary hypertension (HCC) Procedures CT chest without IV contrast To Nicholas MD [address] [place] [address] Phone: tel: fax: Referral ID Status Reason Start Date Expiration Date V isits Requested Visits Authorized [id number] Pending Review 01/16/2024 01/15/2025 1 1 Encounter Details Date Type Department Care Team (Late st Contact Info) Description 01/16/2024 Outside Orders [facility] Central Scheduling 1 [place] [address] To Nicholas MD [address] [place], [place] [id number] Pulmonary hypertension (HCC) (Primary Dx) Social History Tobacco Use Types [...] Date Martinez rded Speak language other than Japanese at home Not on file 11/16/2023 Want [...] Description 01/15/2025 2:45 PM EDT Office Visit [facility] - David [address] [place] [address] Jayla Ontiveros MD [address] [facility] [address] [place] [address] 09/19/2025 2:30 PM EST Appointment [address] [place] [address] documented as of this encounter Results * CT chest without IV contrast (01/23/2024 12:36 PM EDT) Anatomical Region Laterality Modality Chest, Lung Computed Tomogra phy (CT) 01/23/2024 2:30 PM EDT Impressions 01/23/2024 2:41 PM EDT No acute cardiopulmonary process. Images reviewed, interpreted, and dictated by Dr. Avila Niño. Transcribed by Modesta Light PA-C. Narrative 01/23/2024 2:[address] SCAN OF THE CHEST ?? 01/23/2024 12:29 PM HISTORY: Pulmonary hypertension COMPARISON: None. PROCEDURE: Axial images were obtained from the lung apex to the mid abdomen by computed tomography. This study was performed with techniques to keep radiation doses as low as reasonably achievable, (ALARA). Individualized dose reduction techniques using automated exposure control or adjustment of mA and/or kV according to the patient size were employed. FINDINGS: CHEST: There is no axillary adenopathy. There is no hilar or mediastinal adenopathy. The heart is proper size. There is no pericardial or pleural effusion. There is bibasilar atelectasis. There is biapical pleural thickening. The pulmonary arteries are normal in size. Limited images of the upper abdomen are unremarkable. No suspicious infiltrate or nodule identified. A pacemaker overlies the left chest. There are left axillary clips noted. Procedure Note Olivier Niño MD - 01/23/2024 CT SCAN OF THE CHEST 01/23/2024 12:29 PM HISTORY: Pulmonary hypertension COMPARISON: None. PROCEDURE: Axial images were obtained from the lung apex to the mid abdomen by computed tomography. This study was performed with techniques to keep radiation doses as low as reasonably achievable, (ALARA). Individualized dose reduction techniques using automated exposure control or adjustment of mA and/or kV according to the patient size were employed. FINDINGS: CHEST: There is no axillary adenopathy. There is no hilar or mediastinal adenopathy. The heart is proper size. There is no pericardial or pleural effusion. There is bibasilar atelectasis. There is biapical pleural thickening. The pulmonary arteries are normal in size. Limited images of the upper abdomen are unremarkable. No suspicious infiltrate or nodule identified. A pacemaker overlies the left chest. There are left axillary clips noted. IMPRESSION: No acute cardiopulmonary process. Images reviewed, interpreted, and dictated by Dr. Avila Niño. Transcribed by Modesta Light PA-C. To Nicholas MD IMG CT ORDERABLES Final Result documented in this encounter Visit Diagnoses Diagnosis Pulmonary hypertension (HCC)- Primary Other chronic pulmonary heart diseases Pulmonary hypertension (HCC) Other chronic pulmonary heart diseases documented in this encounter Care Teams General Accountant Relationship Specialty Start Date End Date Mora Suzanne, COAGULATION OPERATOR [address] [place] [address] PCP - General Family Medicine 01/04/24 Steven Marcelo MD [address] [place] [address] Surgeon General Surgery 09/07/22 Jayla Ontiveros MD [address] [facility] [address] [place], [place] [id number] Medical Oncologist Hematology and Oncology 09/07/22 Modesta Valadez, RN Nurse Navigator 03/03/23 03/20/24 documented as of this encounter
--- OUTSIDE RECORDS SUMMARY | 2024-10-05 17:14 | XMS_ITS | Encounter Summary ---
Author Organization [employer] Address [address] [place] [address] Care Team Providers Care Operating System Programmer Name Role Phone Steven Marcelo MD Unavailable [phone] Jayla Ontiveros MD Unavailable [phone] Modesta Valadez RN Unavailable Unavailable Suzanne Mora APRN Primary Care Provider [phone] Encounter Details Date Type Department Care Team (Latest Contact Info) Description 02/15/2024 Travel Social History Tobacco Use Types Packs/Day [...] Date Martinez rded Speak language other than Somali at home Not on file 11/16/2023 Want [...] Description 01/15/2025 2:45 PM EDT Office Visit [facility] - David [facility] [address] [place] [phone] Jayla Ontiveros MD [facility] [address] [place], [place] [id number] 09/19/2025 2:30 PM EST Appointment [facility] [address] [place] [address] documented as of this encounter Visit Diagnoses Not on filedocumented in this encounter Care Teams Operating System Programmer Relationship Specialty Start Date End Date Suzanne Mora, DIE TESTER [address] [place] [address] PCP - General Family Medicine 01/04/24 Steven Marcelo MD [address] [place] [address] Surgeon General Surgery 09/07/22 Jayla Ontiveros MD [address] [address] Medical Oncologist Hematology and Oncology 09/07/22 Modesta Valadez RN Nurse Navigator 03/03/23 03/20/24 documented as of this encounter
--- OUTSIDE RECORDS SUMMARY | 2024-10-05 17:14 | XMS_ITS | Encounter Summary ---
Author Organization [facility] [employer] Address [address] [place] [address] Care Team Providers Care Denier Control Operator Name Role Phone Steven Marcelo MD Unavailable [phone] Jayla Ontiveros MD Unavailable [phone] Suzanne Mora APRN Primary Care Provider [phone] Reason for Referral * Ultrasound (Routine) - New Request Specialty Diagnoses / Procedures Referred By Jaswinder kan Referred To Contact Diagnoses History of breast cancer Procedures US BREAST RIGHT LIMITED Steven Marcelo MD [address] [place] [address] Phone: tel: fax: Referral ID Status Reason Start Date Expiration Date V isits Requested Visits Authorized [id number] New Request 09/06/2024 09/06/2025 1 1 Reason for Visit * Ultrasound (Routine) - New Request Specialty Diagnoses / Procedures Referred By Jaswinder kan Referred To Contact Diagnoses History of breast cancer Procedures US BREAST RIGHT LIMITED Steven Marcelo MD [address] [place] [address] Phone: tel: fax: Referral ID Status Reason Start Date Expiration Date V isits Requested Visits Authorized [id number] New Request 09/06/2024 09/06/2025 1 1 Encounter Details Date Type Department Care Team (Latest Contact Info) Description 09/06/2024 3:40 PM EDT - 09/06/2024 11:59 PM EDT Hospital [facility] [address] [place] [address] Steven Marcelo MD [address] [place] [address] History of breast cancer Discharge [...] place to sleep or slept in a fci (including now)? No 08/13/2024 Interpersonal Safety Answer [...] Date Martinez rded Speak language other than Eritrean at home Not on file 11/16/2023 Want [...] Description 01/15/2025 2:45 PM EDT Office Visit [facility] - David [facility] [address] [facility] [address] [place] [phone] Jayla Ontiveros MD [address] [facility] [address] [place] [id number] 09/19/2025 2:30 PM EST Appointment [facility] [address] [facility] [address] [place] [address] documented as of this encounter Procedures Procedure Name Priority Date/Time Associated Diagnosis Comments US BREAST RIGHT LIMITED Routine 09/06/2024 3:57 PM EDT History of breast cancer documented in this encounter Results * US BREAST RIGHT LIMITED (09/06/2024 3:57 PM EDT) Anatomical Region Laterality Modality Breast Right Ultrasound 09/06/2024 4:00 PM EDT Impressions 09/06/2024 4:04 PM EDT FINAL IMPRESSION: Stable mammogram. No findings suspicious for malignancy. Bi-RADS: ACR BI-RADS 2: Benign findings. RECOMMENDATIONS: Screening mammography in 12 months This report will serve as the order for the recommended imaging studies/procedures. At our facility, a gakona marker is positioned over a visible skin [...] family history of breast cancer COMPARISON STUDY: [facility] 2022 through 2015 FINDINGS: Craniocaudal and [...] the benefit of computer aided detection (CAD). Steven Marcelo MD [facility] [place] ORDERABLES Final Resu lt documented in this encounter Visit Diagnoses Diagnosis History of breast cancer Personal history of malignant neoplasm of breast documented in this encounter Care Teams Denier Control Operator Relationship Specialty Start Date End Date Suzanne Mora APRN [address] [place] [address] PCP - General Family Medicine 01/04/24 Steven Marcelo MD [address] [place] [address] Surgeon General Surgery 09/07/22 Jayla Ontiveros MD [address] [place] [address] Medical Oncologist Hematology and Oncology 09/07/22 documented as of this encounter
--- OUTSIDE RECORDS SUMMARY | 2024-10-05 17:14 | XMS_ITS | Encounter Summary ---
Author Organization [employer] Address [address] [place] [address] Care Team Providers Care Fur Comber Name Role Phone Steven Marcelo MD Unavailable [phone] Jayla Ontiveros MD Unavailable [phone] Suzanne Mora APRN Primary Care Provider [phone] Reason for Referral * Mammography (Routine) - New Request Specialty Diagnoses / Procedures Referred By Jaswinder t Referred To Contact Diagnoses History of breast cancer Procedures MM digital mammo diagnostic bilateral Steven Marcelo MD [address] [place] [phone] Phone: tel: fax: Referral ID Status Reason Start Date Expiration Date V isits Requested Visits Authorized [id number] New Request 09/19/2025 09/19/2026 1 1 Encounter Details Date Type Department Care Team (Late st Contact Info) Description 09/06/2024 Outside Orders [facility] Breast Care [address] [facility] [address] [place] [address] Steven Marcelo MD [address] [place] [address] History of breast cancer (Primary Dx) Social History Tobacco Use Types [...] place to sleep or slept in a intermediate (including now)? No 08/13/2024 Interpersonal Safety Answer [...] Date Martinez rded Speak language other than Sudanese at home Not on file 11/16/2023 Want [...] Description 01/15/2025 2:45 PM EDT Office Visit [facility] - David [address] [facility] [address] [place] [address] Jayla Ontiveros MD [address] [facility] [address] [place] [address] 09/19/2025 2:30 PM EST Appointment [facility] Breast [facility] [address] [facility] [address] [place] [address] Scheduled Orders Name Type Priority Associated Diagnoses Orde r Schedule MM digital mammo diagnostic bilateral Imaging Routine History of breast cancer Expected: 09/19/2025, Expires: 09/19/2026 documented as of this encounter Visit Diagnoses Diagnosis History of breast cancer- Primary Personal history of malignant neoplasm of breast documented in this encounter Care Teams Fur Comber Relationship Specialty Start Date End Date Suzanne Mora APRN [address] [place] [address] PCP - General Family Medicine 01/04/24 Steven Marcelo MD [address] [facility] [address] [place] [address] Surgeon General Surgery 09/07/22 Jayla Ontiveros MD [address] [facility] [address] [place] [address] Medical Oncologist Hematology and Oncology 09/07/22 documented as of this encounter
--- OUTSIDE RECORDS SUMMARY | 2024-10-05 17:14 | XMS_ITS | Encounter Summary ---
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 Procedures DXA bone density spine and hip Jayla Ontiveros MD [address] [address] [place] [address] Phone: tel: fax: [address] [place] [address] Phone: tel: fax: Referral ID Status Reason Start Date Expiration Date Visits Re quested Visits Authorized [id number] Closed 07/02/2024 07/02/2025 1 1 Reason for Visit * DXA (Routine) - Closed Specialty Diagnoses / Procedures Referred By Contmark kan Referred To Contact Radiology Diagnoses History of breast cancer residential (current) use of aromatase inhibitors Procedures DXA bone density spine and hip Jayla Ontiveros MD [address] [address] [address] [place] [address] Phone: tel: fax: [facility] Care [address] [facility] [address] [place] [address] Phone: tel: fax: Referral ID Status Reason Start Date Expiration Date Visits Re quested Visits Authorized [id number] Closed 07/02/2024 07/02/2025 1 1 Encounter Details Date Type Department Care Team (Latest Contact Info) Description 09/06/2024 3:00 PM EDT - 09/06/2024 3:39 PM EDT Hospital Encounter [facility] [address] [facility] [address] [place] [address] Jayla Ontiveros MD [address] [facility] [address] [place] [address] History of breast cancer; residential (current) use of aromatase inhibitors Discharge Disposition: Home or Self Care Social [...] place to sleep or slept in a care home (including now)? No 08/13/2024 Interpersonal Safety Answer [...] Date Martinez rded Speak language other than Venezuelan at home Not on file 11/16/2023 Want [...] daily. 02/14/2024 documented as of this encounter Miscellaneous Notes * Result Encounter Note - Jayla Ontiveros MD - 09/06/2024 3:00 PM EDT Email sent to pt via [employer], informed of recent tests results. documented in this encounter Plan of Treatment Upcoming Encounters Date Type Department Care Team (Late st Contact Info) Description 01/15/2025 2:45 PM EDT Office Visit [facility] [address] [place] [address] Jayla Ontiveros MD [address] [place] [address] 09/19/2025 2:30 PM EST Appointment [address] [address] documented as of this encounter Procedures Procedure Name Priority Date/Time Associated Diagnosis Comments DXA BONE DENSITY SPINE AND HIP Routine 09/06/2024 4:02 PM EDT History of breast cancer residential (current) use of aromatase inhibitors documented in this encounter Results * DXA bone density spine and [...] Agustín Goins PA-C. 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
--- OUTSIDE RECORDS SUMMARY | 2024-10-05 17:14 | XMS_ITS | Encounter Summary ---
Author Organization [employer] Address [address] [place] [address] Care Team Providers Care Accounts Payable Processor Name Role Phone Steven Marcelo MD Unavailable [phone] Jayla Ontiveros MD Unavailable [phone] Suzanne Mora APRN Primary Care Provider [phone] Reason for Referral * Mammography (Routine) - New Request Specialty Diagnoses / Procedures Referred By Jaswinder t Referred To Contact Diagnoses History of breast cancer Procedures MM digital mammo screen with subhash bilateral Steven Marcelo MD [address] [place] [address] Phone: tel: fax: Referral ID Status Reason Start Date Expiration Date V isits Requested Visits Authorized [id number] New Request 09/06/2025 09/06/2026 1 1 Reason for Visit * Reason Comments Follow-up FU MAMM Encounter Details Date Type Department Care Team (Late st Contact Info) Description 09/06/2024 2:45 PM EDT Office Visit [facility] [address] [place] [address] Steven Marcelo MD [address] [place] [address] History of breast cancer (Primary [...] on file documented as of this encounter Progress Notes * Steven Marcelo MD - 09/06/2024 2:45 PM EDT Subjective: Sheron Carvajal is a 73 y.o. female. Chief Complaint Patient presents with Follow-up FU MAMM I have reviewed and/or updated the following: HPI Ms. Carvajal is now 2 years status post left lumpectomy and sentinel lymph node biopsy. She had abilateral mammogram today which was unremarkable. I reviewed the images. She continues to do well and remains on anastrozole. Review of Systems All other systems reviewed and are negative. Objective: There were no vitals taken for this visit. Physical Exam she has well-healed lumpectomy incisions on the left without evidence of recurrence. Examination of the right breast is unremarkable. Assessment: 1. History of breast cancer Plan: And pleased that she continues to do well. Unless she develops any new problems or concerns I will see her back in 1 year with her next bilateral mammogram. No follow-ups on file. documented in this encounter Plan of Treatment Upcoming Encounters Date Type Department Care Team (Late st Contact Info) Description 01/15/2025 2:45 PM EDT Office Visit [place] [facility] - [address] [place] [address] Jayla Ontiveros MD [address] [facility] [address] [place] [address] 09/19/2025 2:30 PM EST Appointment [facility] Breast [facility] [address] [facility] [address] [place] [address] Scheduled Orders Name Type Priority Associated Diagnoses Orde r Schedule MM digital mammo screen with subhash bilateral Imaging Routine History of breast cancer Expected: 09/06/2025, Expires: 03/06/2026 documented as of this encounter Visit Diagnoses Diagnosis History of breast cancer- Primary Personal history of malignant neoplasm of breast documented in this encounter Care Teams Accounts Payable Processor Relationship Specialty Start Date End Date Suzanne Mora APRN [address] [place] [address] PCP - General Family Medicine 01/04/24 Steven Marcelo MD [address] [place] [address] Surgeon General Surgery 09/07/22 Jayla Ontiveros MD [facility] [facility] [address] [place] [address] Medical Oncologist Hematology and Oncology 09/07/22 documented as of this encounter
--- OUTSIDE RECORDS SUMMARY | 2024-10-05 17:14 | XMS_ITS | Encounter Summary ---
Author Organization [email or web address] Address [address] [place] [address] Care Team Providers Care Weather Strip Mechanic Name Role Phone Steven Marcelo MD Unavailable [phone] Jayla Ontiveros MD Unavailable [phone] Suzanne Mora APRN Primary Care Provider [phone] Reason for Referral * Other (Routine) - Canceled Specialty Diagnoses / Procedures Referred By Contac t Referred To Contact Sleep Medicine Diagnoses AYO (obstructive sleep apnea) Procedures HOME SLEEP APNEA TESTING Sean Capellan MD [address] [facility] [address] [place] [address] Phone: tel: fax: [facility] [address] [place] [address] Phone: tel: fax: Referral ID Status Reason Start Date Expiration Date V isits Requested Visits Authorized [id number] Canceled 07/18/2024 07/18/2025 1 1 Encounter Details Date Type Department Care Team (Late st Contact Info) Description 04/17/2024 Outside Orders [facility] [address] [place] [address] Pilar Easley RN AYO (obstructive sleep apnea) (Primary Dx) Social History Tobacco Use Types [...] Date Martinez rded Speak language other than [place] at home Not on file 11/16/2023 Want [...] Description 01/15/2025 2:45 PM EDT Office Visit [facility] - [address] [place] [address] Jayla Ontiveros MD [address] [facility] [address] [place] [address] 09/19/2025 2:30 PM EST Appointment [facility] [address] [facility] [address] [place] [address] Scheduled Orders Name Type Priority Associated Diagnoses Orde r Schedule HOME SLEEP APNEA TESTING Sleep Center Routine AYO (obstructive sleep apnea) Expected: 07/18/2024, Expires: 10/17/2024 documented as of this encounter Visit Diagnoses Diagnosis AYO (obstructive sleep apnea)- Primary Obstructive sleep apnea (adult) (pediatric) documented in this encounter Care Teams Weather Strip Mechanic Relationship Specialty Start Date End Date Suzanne Mora, CODY [facility] [address] [place] [address] PCP - General Family Medicine 01/04/24 Steven Marcelo MD [address] [facility] 101 [place] [address] Surgeon General Surgery 09/07/22 Jayla Ontiveros MD [address] [facility] [address] [place] [address] Medical Oncologist Hematology and Oncology 09/07/22 documented as of this encounter
--- OUTSIDE RECORDS SUMMARY | 2024-10-05 17:14 | XMS_ITS | Encounter Summary ---
Author Organization [employer] Address [address] [place] [address] Care Team Providers Care Mammography Supervisor Name Role Phone Steven Marcelo MD Unavailable [phone] Jayla Ontiveros MD Unavailable [phone] Suzanne Mora APRN Primary Care Provider [phone] Encounter Details Date Type Department Care Team (Latest Contact Info) Description 07/02/2024 Travel Social History Tobacco Use Types Packs/Day [...] Date Martinez rded Speak language other than Tanzanian at home Not on file 11/16/2023 Want [...] Description 01/15/2025 2:45 PM EDT Office Visit [facility] - [facility] [address] [place] [phone] Jayla Ontiveros MD [address] [place] [address] [address] [place] [address] 09/19/2025 2:30 PM EST Appointment [facility] Breast [facility] [address] [facility] [address] [place] [phone] documented as of this encounter Visit Diagnoses Not on filedocumented in this encounter Care Teams Mammography Supervisor Relationship Specialty Start Date End Date Suzanne Mora, AIR LIAISON AND SPECIAL STAFF [address] [place] [address] PCP - General Family Medicine 01/04/24 Steven Marcelo MD [address] [facility] [address] [place] [address] Surgeon General Surgery 09/07/22 Jayla Ontiveros MD [address] [facility] [address] [place], [place] [id number] Medical Oncologist Hematology and Oncology 09/07/22 documented as of this encounter
--- OUTSIDE RECORDS SUMMARY | 2024-10-05 17:14 | XMS_ITS | Encounter Summary ---
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 Procedures DXA bone density spine and hip Jayla Ontiveros MD [address] [facility] [address] [place] [address] Phone: tel: fax: [address] [place] [address] Phone: tel: fax: Referral ID Status Reason Start Date Expiration Date Visits Re quested Visits Authorized [id number] Closed 07/02/2024 07/02/2025 1 1 Reason for Visit * Reason Comments Follow-up Breast Cancer Encounter Details Date Type Department Care Team (Late st Contact Info) Description 07/02/2024 2:45 PM EDT Office Visit [facility] - [address] [place] [address] Estefanía Sheehan PA-C [address] [facility] [address] [place] [address] Jayla Ontiveros MD [address] [facility] [address] [place], [place] [id number] 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 (Primary Dx); History of breast cancer Social History Tobacco Use Types Packs/Day Years [...] Sign Reading Time Taken Comments Blood Pressure 133/66 07/02/2024 2:37 PM EDT Pulse 60 07/02/2024 2:37 PM EDT Temperature 36.6 ??C (97.9 ??F) 07/02/2024 2:37 PM ED T Respiratory Rate 17 07/02/2024 2:37 PM EDT Oxygen Saturation 97% 07/02/2024 2:37 PM EDT RA Inhaled Oxygen Concentration - - Weight 57.3 kg (126 lb 4.8 oz) 07/02/2024 2:37 P M EDT Height 170.2 cm (5' 7 ) 07/02/2024 2:37 PM EDT Body Mass Index 19.78 07/02/2024 2:37 PM EDT documented in this encounter Progress Notes * Jayal Ontiveros MD - 07/02/2024 2:45 PM EDT [facility] Note Cancer History: 1. Presented 07/07/2022 with abnormal mammogram, subcentimeter nodule in left lower inner quadrant. 2. Biopsy with G1 IDC, ER/SC+, Her2-. 3. Lumpectomy, pT1aN0, negative margins. 4. Left partial breast radiation x 5 fractions 09/21/2022-09/27/2022. 5. Adjuvant anastrozole 08/2022 - current. Chief Complaint Patient presents with Follow-up Breast Cancer History of Present Illness: Sheron is a 73 y.o. female returns for follow up of breast cancer on anastrozole. Fully compliant with anastrozole and no complaints. Denies hot flashes or arthralgias. No vaginal dryness. No breast concerns. No interval health events. ECOG 0. Past Medical History: Diagnosis Date Anemia Atrial fibrillation (HCC) Chronic kidney disease H/O tubal ligation 1984 Heart disease Hypertension Past Surgical History: Procedure Laterality Date BREAST BIOPSY BREAST LUMPECTOMY Left 2021 LUMPECTOMY,SENTINAL NODE Left 08/17/2022 Procedure: LUMPECTOMY, BREAST, WITH SENTINEL LYMPH NODE BIOPSY WITH NEEDLE LOC; Surgeon: Steven Marcelo MD; Location: [facility]; Service: General Surgery; Laterality: Left; pace maker 2019 Social History Tobacco Use Smoking status: Never Smokeless tobacco: Never Vaping Use Vaping Use: Never used Substance Use Topics Alcohol use: Not Currently Drug use: Never Family History: No history of malignancy Allergies Allergen Reactions Nsaids (Non-Steroidal Anti-Inflammatory Drug) Hives Single kidney---functioning at 50% Valdecoxib Current Outpatient Medications Medication Sig Dispense Refill amLODIPine (NORVASC) 5 MG tablet Take 1 tablet (5 mg total) by mouth daily. anastrozole (ARIMIDEX) 1 mg tablet Take 1 tablet (1 mg total) by mouth daily. 90 tablet 3 cholecalciferol (VITAMIN D3) 125 mcg (5,000 unit) capsule Take by mouth. Eliquis 5 MG tablet Take 1 tablet (5 mg total) by mouth 2 (two) times daily. ferrous sulfate 325 (65 FE) MG EC tablet Take 1 tablet (325 mg total) by mouth 2 (two) times daily. metoprolol succinate (TOPROL-XL) 25 MG 24 hr tablet Take 1 tablet (25 mg total) by mouth daily. valsartan (DIOVAN) 160 MG tablet Take 1 tablet (160 mg total) by mouth daily. No current facility-administered medications for this visit. Review of Systems: 10 systems reviewed and negative except as noted per HPI. Vital Signs: BP 133/66 (BP Location: Right arm, Patient Position: Sitting) Pulse 60 Temp 97.9 ??F (36.6 ??C) Resp 17 Ht 1.702 m (5' 7 ) Wt 57.3 kg (126 lb 4.8 oz) SpO2 97% Comment: RA BMI 19.78 kg/m?? Body mass index is 19.78 kg/m??. Pain Score: 0-No pain Physical Exam Vitals and nursing note reviewed. Constitutional: General: She is not in acute distress. Appearance: Normal appearance. She is not toxic-appearing. HENT: Head: Normocephalic and atraumatic. Nose: Nose normal. Mouth/Throat: Mouth: Mucous membranes are moist. Pharynx: Oropharynx is clear. Eyes: Extraocular Movements: Extraocular movements intact. Pupils: Pupils are equal, round, and reactive to light. Cardiovascular: Rate and Rhythm: Normal rate and regular rhythm. Heart sounds: Normal heart sounds. Pulmonary: Effort: Pulmonary effort is normal. No respiratory distress. Breath sounds: Normal breath sounds. No wheezing, rhonchi or rales. Abdominal: General: Bowel sounds are normal. There is no distension. Palpations: Abdomen is soft. Tenderness: There is no abdominal tenderness. Musculoskeletal: General: No swelling or deformity. Normal range of motion. Cervical back: Normal range of motion and neck supple. Right lower leg: No edema. Left lower leg: No edema. Lymphadenopathy: Cervical: No cervical adenopathy. Skin: General: Skin is warm and dry. Coloration: Skin is not jaundiced or pale. Findings: No rash. Neurological: General: No focal deficit present. Mental Status: She is alert and oriented to person, place, and time. Motor: No weakness. Psychiatric: Mood and Affect: Mood normal. Behavior: Behavior normal. Thought Content: Thought content normal. Judgment: Judgment normal. Radiology Results (last 7 days) Procedure Component Value Units Date/Time DXA bone density spine and hip [[id number]] Order Status: Sent Assessment/Plan: 73 y.o. female here for follow up of early stage left breast cancer. -No evidence of cancer recurrence on exam today. -Excellent tolerance of anastrozole. We will continue for at least 5 years (tentatively 09/02). -Bilateral mammogram scheduled 08/30. -Will repeat DEXA fall 2023 as well. Continue calcium and vitamin D. Return to clinic in 6 months or sooner for new or worsening symptoms. Electronically signed by Jayla Ontiveros MD - 07/02/2024 - 4:39 PM EDT documented in this encounter Plan of Treatment Upcoming Encounters Date Type Department Care Team (Late st Contact Info) Description 01/15/2025 2:45 PM EDT Office Visit [facility] - [address] [facility] [address] [place] [address] Jayla Ontiveros MD [address] [place] [address] 09/19/2025 2:30 PM EST Appointment [address] [address] documented as of this encounter Results * DXA bone density [...] Images reviewed, interpreted, and dictated by Dr. Avial Niño. Transcribed by Agustín Goins PA-C. 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
--- OUTSIDE RECORDS SUMMARY | 2024-10-05 17:14 | XMS_ITS | Encounter Summary ---
Author Organization [employer] Address [address] [place] [address] Care Team Providers Care Medical Sales Specialist Name Role Phone Steven Marcelo MD Unavailable [phone] Jayla Ontiveros MD Unavailable [phone] Modesta Valadez RN Unavailable Unavailable Suzanne Mora APRN Primary Care Provider [phone] Reason for Referral * CAT Scan (Routine) - Pending Review Specialty Diagnoses / Procedures Referred By Contac t Referred To Contact Radiology Diagnoses Pulmonary hypertension (HCC) Procedures CT chest without IV contrast To Nicholas MD [address] [employer] [address] [place] [address] Phone: tel: fax: Referral ID Status Reason Start Date Expiration Date V isits Requested Visits Authorized [id number] Pending Review 01/16/2024 01/15/2025 1 1 Reason for Visit * CAT Scan (Routine) - Pending Review Specialty Diagnoses / Procedures Referred By Jaswinder kan Referred To Contact Radiology Diagnoses Pulmonary hypertension (HCC) Procedures CT chest without IV contrast To Nicholas MD [address] [place] [address] Phone: tel: fax: Referral ID Status Reason Start Date Expiration Date V isits Requested Visits Authorized [id number] Pending Review 01/16/2024 01/15/2025 1 1 Encounter Details Date Type Department Care Team (Latest Contact Info) Description 01/23/2024 12:17 PM EDT - 01/23/2024 11:59 PM EDT Hospital Encounter [facility] [address] [phone] To Nicholas MD [address] [facility] [address] [place] [address] Pulmonary hypertension (HCC) Discharge Disposition: Home or Self Care Social [...] (25 mg total) by mouth daily. 06/10/2022 [id number]-epa-[id number] ER-PEFE-[id number]-mv 1.5 mg iron- 8.73 mg CpID iron [...] Description 01/15/2025 2:45 PM EDT Office Visit [facility] - [address] [place] [phone] Jayla Ontiveros MD [address] [facility] [address] [place], [place] [address] 09/19/2025 2:30 PM EST Appointment [facility] Breast [facility] [address] [facility] [address] [place] [address] documented as of this encounter Procedures Procedure Name Priority Date/Time Associated Diagnosis Comments CT CHEST WITHOUT IV CONTRAST Routine 01/23/2024 12:36 PM EDT Pulmonary hypertension (HCC) documented in this encounter Results * CT chest without [...] this encounter Visit Diagnoses Diagnosis Pulmonary hypertension (HCC) Other chronic pulmonary heart diseases documented in this encounter Care Teams Medical Sales Specialist Relationship Specialty Start Date End Date Mora, Suzanne, CODY [address] [place] [address] PCP - General Family Medicine 01/04/24 Steven Marcelo MD [address] [place] [address] Surgeon General Surgery 09/07/22 Jayla Ontiveros MD [address] [facility] [address] [place] [address] Medical Oncologist Hematology and Oncology 09/07/22 Modesta Valadez RN Nurse Navigator 03/03/23 03/20/24 documented as of this encounter
--- OUTSIDE RECORDS SUMMARY | 2024-10-05 17:14 | XMS_ITS | Encounter Summary ---
Author Organization [employer] Address [address] [place] [address] Care Team Providers Care Sailboat Captain Name Role Phone Steven Marcelo MD Unavailable Jayla Ontiveros MD Unavailable [phone] Modesta Valadez RN Unavailable Unavailable Suzanne Mora APRN Primary Care Provider Reason for Visit * Reason Comments Follow-up Follow up via telehe alth go over labs and possible ultrasound results. The ultrasound was done this am. Encounter Details Date Type Department Care Team (Latest Contact Info) Description 01/18/2024 4:15 PM EDT Video - Telemedicine [facility] Primary Care [address] [place] [address] Suzanne Mora APRN [address] [place] [address] Other specified hypothyroidism (Primary Dx); Encounter to discuss test results Social History Tobacco Use Types Packs/Day Years [...] Date Martinez rded Speak language other than Guinean at home Not on file 11/16/2023 Want [...] Sign Reading Time Taken Comments Blood Pressure - - Pulse - - Temperature - - Respiratory Rate - - Oxygen Saturation - - Inhaled Oxygen Concentration - - Weight 57.2 kg (126 lb) 01/18/2024 2:01 PM EDT Height 170.2 cm (5' 7 ) 01/18/2024 2:01 PM EDT Body Mass Index 19.73 01/18/2024 2:01 PM EDT documented in this encounter Progress Notes * Suzanne Mora APRN - 01/18/2024 4:15 PM EDT Type of Service: Live audio visual telehealth Subjective: Patient ID: Sheron Carvajal is a 73 y.o. female. Telemedicine Informed Consent: The Risks, benefits, and alternatives to the virtual visit were explained to the patient and the patient verbally consented to the modality of care. The visit was carried out using secure real-time audio-visual technology, and all parties in the room were identified and approved by the patient prior to the consult. Unless noted otherwise, the provider was located at their usual clinic location, and the patient was at their place of residence. Any physical exam was assisted by the patient and/orcaregiver. Mode of Transmission: Live audio visual using zoom Basis for Telemedicine: Patient preference Others in Attendance: Patient and provider PATIENT LOCATION (City, State, Facility Type): [place], [place] patient home PROVIDER LOCATION ([facility], [facility], Facility Type): [place], [place] provider office START TIME:230 STOP TIME: 243 Chief Complaint Patient presents with ??? Follow-up Follow up via telehealth go over labs and possible ultrasound results. The ultrasound was done thisam. I have reviewed and/or updated the following: Tobacco Allergies Meds Problems Med Hx SurgHx Fam Hx Patient here today to review the results of her labs and US. Patient reports that she is still having occasional RUQ abdominal pain. No other issues or concerns at this time. Review of Systems Constitutional: Positive for fatigue. HENT: Negative. Eyes: Negative. Respiratory: Negative. Cardiovascular: Negative. Gastrointestinal: Positive for abdominal pain. Endocrine: Negative. Genitourinary: Negative. Musculoskeletal: Negative. Skin: Negative. Allergic/Immunologic: Negative. Neurological: Negative. Hematological: Negative. Psychiatric/Behavioral: Negative. Objective: Outpatient Medications Prior to Visit Medication Sig Dispense Refill ??? amLODIPine (NORVASC) 5 MG tablet Take 1 tablet (5 mg total) by mouth daily. ??? cholecalciferol (VITAMIN D3) 125 mcg (5,000 unit) capsule Take by mouth. ??? Eliquis 5 MG tablet Take 1 tablet (5 mg total) by mouth 2 (two) times daily. ??? ferrous sulfate 325 (65 FE) MG EC tablet Take 1 tablet (325 mg total) by mouth 2 (two) times daily. ??? btwe-BS-zxl-flz-RZA-JUWG-be-mv 1.5 mg iron- 8.73 mg CpID iron ??? lisinopriL (PRINIVIL,ZESTRIL) 40 MG tablet Take by mouth. ??? metoprolol succinate (TOPROL-XL) 25 MG 24 hr tablet Take 1 tablet (25 mg total) by mouth daily. ??? omega-3s/dha/epa/fish oil/D3 (VITAMIN-D + OMEGA-3 ORAL) Vitamin D ??? anastrozole (ARIMIDEX) 1 mg tablet Take 1 tablet (1 mg total) by mouth daily for 360 doses. (Patient not taking: Reported on 01/18/2024.) 90 tablet 3 Facility-Administered Medications Prior to Visit Medication Dose Route Frequency Provider Last Rate Last Admin ??? lidocaine (PF) injection 10 mg/mL (1%) 1 mL Intra-articular Once Reji Moore PA-C Physical Exam Constitutional: Appearance: Normal appearance. She is well-developed and well-groomed. HENT: Head: Normocephalic and atraumatic. Neurological: General: No focal deficit present. Mental Status: She is alert. Cranial Nerves: Cranial nerves 2-12 are intact. Psychiatric: Attention and Perception: Attention and perception normal. Mood and Affect: Mood and affect normal. Speech: Speech normal. Behavior: Behavior normal. Behavior is cooperative. Thought Content: Thought content normal. Vitals: 01/18/24 1401 Weight: 57.2 kg (126 lb) Height: 1.702 m (5' 7 ) Body mass index is 19.73 kg/m??. Assessment/Plan: Problem List Items Addressed This Visit Endocrine Other specified hypothyroidism - Primary Relevant Orders T3, free T4, free TSH CBC (Hemogram only) Comprehensive metabolic panel Other Visit Diagnoses Encounter to discuss test results No follow-ups on file. Discussion: Patient will think about having a HIDA scan to evaluate gallbladder. Does not want that or referralto surgery at this time. Discussed that she has hypothyroidism, however she does not want to treat at this time. She would like to recheck in 4 weeks to determine if she still has issues before starting medications. documented in this encounter Plan of Treatment Upcoming Encounters Date Type Department Care Team (Late st Contact Info) Description 01/15/2025 2:45 PM EDT Office Visit [facility] - [address] [place] [address] Jayla Ontiveros MD [address] [facility] [address] [place] [address] 09/19/2025 2:30 PM EST Appointment [facility] [address] [facility] [address] [place] [address] documented as of this encounter Procedures Procedure Name Priority Date/Time Associated Diagnosis Comments CBC (HEMOGRAM ONLY) Routine 02/07/2024 3 :30 PM EDT Other specified hypothyroidism T3, FREE Routine 02/07/2024 3:30 PM EDT Other specified hypothyroidism TSH Routine 02/07/2024 3:30 PM EDT Other specified hypothyroidism T4, FREE Routine 02/07/2024 3:30 PM EDT Other specified hypothyroidism COMPREHENSIVE METABOLIC PANEL Routine 02/07/2024 3:30 PM EDT Other specified hypothyroidism documented in this encounter Results * (ABNORMAL) Comprehensive metabolic panel (02/07/2024 3:30 PM EDT) Glucose, Serum 81 70 - 99 mg/dL [facility] BUN 15 8 - 27 mg/dL [facility] Creatinine, Serum 1.31(H) 0.57 - 1.00 mg/dL [facility] EGFR 44(L) >59 mL/min/1.7 3 [facility] BUN/Creatinine Ratio 11(L) 12 - 28 [facility] Sodium, Serum 137 134 - 144 mmol/L [facility] Potassium, Serum 4.4 3.5 - 5.2 mmol/L [facility] Chloride, Serum 98 96 - 106 mmol/L [facility] Carbon Dioxide, Total 23 20 - 29 mmol/L [facility] Calcium, Serum 9.8 8.7 - 10.3 mg/dL [facility] Protein, Total, Serum 6.9 6.0 - 8.5 g/dL [facility] Albumin, Serum 4.5 3.8 - 4.8 g/dL [facility] Globulin, Total 2.4 1.5 - 4.5 g/dL [facility] A/G Ratio 1.9 1.2 - 2.2 [facility] Bilirubin, Total 0.6 0.0 - 1.2 mg/dL [facility] Alkaline Phosphatase, S 94 44 - 121 IU/L [facility] AST (SGOT) 23 0 - 40 IU/L [facility] ALT (SGPT) 14 0 - 32 IU/L [facility] Blood 02/07/2024 3:30 PM EDT 02/07/2024 Narrative [facility] - 02/08/2024 8:10 AM EDT Performed at: ??01 - [facility] [address] ??[id number] [employer]: Tomas Arechiga PhD, Phone: ??[phone] Suzanne Moar [employer] LAB BLOOD ORDERABLES Final Result [facility] * CBC (Hemogram only) (02/07/2024 3:30 PM EDT) Pathologist [facility] WBC 5.6 3.4 - 10.8 x10E3/uL [facility] RBC 4.25 3.77 - 5.28 x10E6/uL [facility] Hemoglobin 12.7 11.1 - 15.9 g/dL [facility] Hematocrit 38.0 34.0 - 46.6 % [facility] MCV 89 79 - 97 fL [facility] MCH 29.9 26.6 - 33.0 pg [facility] MCHC 33.4 31.5 - 35.7 g/dL [facility] RDW 12.6 11.7 - 15.4 % [facility] Platelets 194 150 - 450 x10E3/uL [facility] Blood 02/07/2024 3:30 PM EDT 02/07/2024 Narrative [facility] - 02/08/2024 8:10 AM EDT Performed at: ??01 - [facility] [address] ??[id number] [employer]: Tomas Arechiga PhD, Phone: ??[phone] us Suzanne Mora APRN LAB BLOOD ORDERABLES Final Result Performing Organization Address [facility] Co de Phone Number [facility] * (ABNORMAL) TSH (02/07/2024 3:30 PM EDT) Pathologist [facility] TSH 5.710(H) 0.450 - 4.500 uIU/mL [facility] Blood 02/07/2024 3:30 PM EDT 02/07/2024 Narrative [facility] - 02/08/2024 8:10 AM EDT Performed at: ??01 - [facility] ??[id number] [employer]: Tomas Arechiga PhD, Phone: ??[phone] us Suzanne Mora APRN LAB BLOOD ORDERABLES Final Result Performing Organization Address [facility] Phone Number [facility] * T4, free (02/07/2024 3:30 PM EDT) Pathologist [facility] T4,Free(Direct) 1.11 0.82 - 1.77 ng/dL [facility] Thyroxine (T4) 6.6 4.5 - 12.0 ug/dL [facility] Blood 02/07/2024 3:30 PM EDT 02/07/2024 Narrative [facility] - 02/08/2024 8:10 AM EDT Performed at: ??01 - [address] ??[id number] [employer]: Tomas Arechiga PhD, Phone: ??[phone] Suzanne Mora APRN LAB BLOOD ORDERABLES Final Result Performing Organization Address [facility] de Phone Number [facility] * T3, free (02/07/2024 3:30 PM EDT) Triiodothyronin e,Free,Serum 3.1 2.0 - 4.4 pg/mL [facility] Blood 02/07/2024 3:30 PM EDT 02/07/2024 Narrative [facility] - 02/08/2024 8:10 AM EDT Performed at: ??01 - [facility] [address] ??[id number] [employer]: Tomas Arechiga PhD, Phone: ??[phone] Suzanne Mora APRN LAB BLOOD ORDERABLES Final Result [facility] documented in this encounter Visit Diagnoses Diagnosis Other specified hypothyroidism- Primary Encounter to discuss test results Other specified counseling documented in this encounter Care Teams Sailboat Captain Relationship Specialty Start Date End Date Suzanne Mora APRN [address] [place] [address] PCP - General Family Medicine 01/04/24 Steven Marcelo MD [address] [place] [address] Surgeon General Surgery 09/07/22 Jayla Ontiveros MD [address] [facility] [address] [place] [address] Medical Oncologist Hematology and Oncology 09/07/22 Modesta Valadez RN Nurse Navigator 03/03/23 03/20/24 documented as of this encounter
--- OUTSIDE RECORDS SUMMARY | 2024-10-05 17:14 | XMS_ITS | Encounter Summary ---
Author Organization [employer] Address [address] [place] [address] Care Team Providers Care Skid [address] Man Name Role Phone Steven Marcelo MD Unavailable Jayla Ontiveros MD Unavailable [phone] Suzanne Mora APRN Primary Care Provider Reason for Visit * Reason Comments Follow-up Pt here today for 6 mos thyroid labs follow up Encounter Details Date Type Department Care Team (Late st Contact Info) Description 08/13/2024 3:30 PM EDT Office Visit [facility] [address] [facility] [address] [place] [address] Sree Murry MD [address] [facility] [address] [place] [address] Primary hypertension (Primary Dx); Elevated TSH Social History Tobacco Use Types Packs/Day Years [...] place to sleep or slept in a half-way (including now)? No 08/13/2024 Interpersonal Safety Answer [...] Date Martinez rded Speak language other than [place] at home Not on file 11/16/2023 Want [...] 08/13/2024 3:17 PM ED T Respiratory Rate - - Oxygen Saturation 96% 08/13/2024 3:17 PM EDT Inhaled Oxygen Concentration - - Weight 56.7 kg (125 lb) 08/13/2024 3:17 PM EDT Height - - Body Mass Index 19.58 07/02/2024 2:37 PM EDT documented in this encounter Patient Instructions * Attachments The following attachments cannot be sent through Care Everywhere. * Hypertension Adult Fcjo-of-[place]of[place] ([place]) documented in this encounter Progress Notes * Sree Murry MD - 08/13/2024 3:30 PM EDT Subjective: Sheron Carvajal is a 73 y.o. female. Chief Complaint Patient presents with Follow-up Pt here today for 6 mos thyroid labs follow up I have reviewed and/or updated the following: Tobacco Allergies Meds Problems Med Hx Surg Hx Fam Hx Hypertension This is a chronic problem. The current episode started more than 1 year ago. The problem has been waxing and waning since onset. The problem is controlled. Associated symptoms include anxiety and palpitations. Pertinent negatives include no chest pain, headaches or shortness of breath. There are noassociated agents to hypertension. Risk factors for coronary artery disease include dyslipidemia, family history and stress. Past treatments include angiotensin blockers, calcium channel blockers andbeta blockers. The current treatment provides significant improvement. There are no compliance problems. Hypertensive end-organ damage includes kidney disease. Identifiable causes of hypertension include a thyroid problem. Thyroid Problem Presents for follow-up (History of borderline elevation TSH normal panel) visit. Symptoms include anxiety and palpitations. Patient reports no constipation, diaphoresis, diarrhea or fatigue. Review of Systems Constitutional: Negative for activity change, appetite change, chills, diaphoresis and fatigue. HENT: Negative for congestion, dental problem, drooling, ear discharge, ear pain and facial swelling. Eyes: Negative for pain, discharge and itching. Respiratory: Negative for cough, choking, chest tightness and shortness of breath. Cardiovascular: Positive for palpitations. Negative for chest pain and leg swelling. Gastrointestinal: Negative for abdominal distention, abdominal pain, constipation and diarrhea. Genitourinary: Negative for difficulty urinating, dysuria, frequency and hematuria. Musculoskeletal: Negative for arthralgias and myalgias. Skin: Negative for color change and pallor. Neurological: Negative for seizures, syncope and headaches. Psychiatric/Behavioral: Positive for behavioral problems. Negative for agitation, confusion and decreased concentration. The patient is nervous/anxious. Objective: Outpatient Medications Prior to Visit Medication Sig Dispense Refill amLODIPine (NORVASC) 5 [...] (160 mg total) by mouth daily. No facility-administered medications prior to visit. Vitals: 08/13/24 1517 BP: 127/83 BP Location: Left arm Patient Position: Sitting Cuff Size: Adult Pulse: 67 Temp: 96.7 ??F (35.9 ??C) SpO2: 96% Weight: 56.7 kg (125 lb) Body mass index is 19.58 kg/m??. Physical Exam Vitals and nursing note reviewed. Constitutional: Appearance: Normal appearance. HENT: Head: Normocephalic. Right Ear: Tympanic membrane normal. Left Ear: Tympanic membrane normal. Nose: Nose normal. Mouth/Throat: Mouth: Mucous membranes are moist. Eyes: Pupils: Pupils are equal, round, and reactive to light. Cardiovascular: Rate and Rhythm: Normal rate and regular rhythm. Pulses: Normal pulses. Heart sounds: Normal heart sounds. Pulmonary: Effort: Pulmonary effort is normal. Abdominal: General: Abdomen is flat. Bowel sounds are normal. There is no distension. Palpations: There is no mass. Tenderness: There is no abdominal tenderness. There is no right CVA tenderness, left CVA tenderness, guarding or rebound. Musculoskeletal: General: Normal range of motion. Cervical back: Normal range of motion. Skin: General: Skin is warm. Coloration: Skin is not jaundiced. Findings: No bruising or lesion. Neurological: General: No focal deficit present. Mental Status: She is alert and oriented to person, place, and time. Mental status is at baseline. Psychiatric: Mood and Affect: Mood normal. No results found for this visit on 08/13/24 (from the past 24 hour(s)). Assessment: 1. Primary hypertension 2. Elevated TSH Plan: Diagnoses and all orders for this visit: Primary hypertension - Comprehensive metabolic panel; Future - CBC with platelet count + automated diff; Future Elevated TSH - TSH; Future - T4; Future - T3, free; Future Problem List Items Addressed This Visit Cardiovascular and Mediastinum Hypertension - Primary Current Assessment & Plan Plan/dicussed with patient: 2 gram sodium diet, lose weight, exercise, no smoking, continue home medications and take 81 mg aspirin daily. Relevant Orders Comprehensive metabolic panel CBC with platelet count + automated diff Other Elevated TSH Current Assessment & Plan Patient sent for labs for thyroid panel. Relevant Orders TSH T4 T3, free Return in about 3 months (around 11/13/2024). New Prescriptions No medications on file Discontinued Medications No medications on file Modified Medications No medications on file documented in this encounter Miscellaneous Notes * Assessment & Plan Note - Sree Murry MD - 08/13/2024 3:43 PM EDTAssociated Problem(s): Elevated TSH Patient sent for labs for thyroid panel. * Assessment & Plan Note - Sree Murry MD - 08/13/2024 3:42 PM EDTAssociated Problem(s): Hypertension Plan/dicussed with patient: 2 gram sodium diet, lose weight, exercise, no smoking, continue home medications and take 81 mg aspirin daily. * Result Encounter Note - Sree Murry MD - 08/13/2024 3:30 PM EDT I have reviewed your labs there is nothing that requires immediate attention we will discuss in further detail at your follow-up. documented in this encounter Plan of Treatment Upcoming Encounters Date Type Department Care Team (Late st Contact Info) Description 01/15/2025 2:45 PM EDT Office Visit [facility] [address] [phone] Jayla Ontiveros MD [facility] [address] [place] [address] 09/19/2025 2:30 PM EST Appointment [facility] [address] [facility] [address] [place] [address] documented as of this encounter Procedures Procedure Name Priority Date/Time Associated Diagnosis Comments CBC W/PLT COUNT & AUTO DIFFERENTIAL Routine 08/13/2024 3:45 PM EDT Primary hypertension T3, FREE Routine 08/13/2024 3:45 PM EDT Elevated TSH TSH Routine 08/13/2024 3:45 PM EDT Elevated TSH T4 Routine 08/13/2024 3:45 PM EDT Elevated TSH COMPREHENSIVE METABOLIC PANEL Routine 08/13/2024 3:45 PM EDT Primary hypertension documented in this encounter Results * CBC with platelet count + automated [...] AM EDT Performed at: ??01 - [facility] [address], [place], [place] ??[id number] Jumpbasting Armhole Baster: Tomas Arechiga PhD, Phone: ??[phone] Sree Murry MD LAB BLOOD ORDERABLES Final [...] AM EDT Performed at: ??01 - [facility] [address] ??[id number] Jumpbasting Armhole Baster: Tomas Arechiga PhD, Phone: ??[phone] Sree Murry MD LAB BLOOD ORDERABLES Final Resul t [facility] * T3, free (08/13/2024 3:45 PM EDT) Triiodothyronin e,Free,Serum 2.8 2.0 - 4.4 pg/mL [facility] Blood 08/13/2024 3:45 PM EDT 08/13/2024 Narrative [facility] - 08/14/2024 8:12 AM EDT Performed at: ??01 - [facility] ??[id number] Jumpbasting Armhole Baster: Tomas Arechiga PhD, Phone: ??[phone] Sree Murry MD LAB BLOOD ORDERABLES Final Resul t Performing Organization Address City/[facility] Co de Phone Number [facility] * T4 (08/13/2024 3:45 PM EDT) Pathologist [facility] Thyroxine (T4) 5.8 4.5 - 12.0 ug/dL [facility] Blood 08/13/2024 3:45 PM EDT 08/13/2024 Narrative [facility] - 08/14/2024 8:12 AM EDT Performed at: ??01 - [facility] ??[id number] Jumpbasting Armhole Baster: Tomas Arechiga PhD, Phone: ??[phone] Sree Murry MD LAB BLOOD ORDERABLES Final Resul t Performing Organization Address City/[facility] Co de Phone Number [facility] * (ABNORMAL) TSH (08/13/2024 3:45 PM EDT) TSH 4.640(H) 0.450 - 4.500 uIU/mL [facility] Blood 08/13/2024 3:45 PM EDT 08/13/2024 Narrative [facility] - 08/14/2024 8:12 AM EDT Performed at: ??[address] ??[id number] Jumpbasting Armhole Baster: Tomas Arechiga PhD, Phone: ??[phone] us Sree Murry MD LAB BLOOD ORDERABLES Final Resul t [facility] documented in this encounter Visit Diagnoses Diagnosis Primary hypertension- Primary Unspecified essential hypertension Elevated TSH Other abnormal blood chemistry documented in this encounter Care Teams Skid [address] Man Relationship Specialty Start Date End Date Mora, Suzanne, FLAVORING OIL FILTERER [address] [place] [address] PCP - General Family Medicine 01/04/24 Steven Marcelo MD [address] [place] [address] Surgeon General Surgery 09/07/22 Jayla Ontiveros MD [address] [facility] [address] [place] [address] Medical Oncologist Hematology and Oncology 09/07/22 documented as of this encounter
--- OUTSIDE RECORDS SUMMARY | 2024-10-05 17:14 | XMS_ITS | Encounter Summary ---
Author Organization [facility] [facility] Address [address] [place] [address] Care Team Providers Care Tuberculosis Specialist Name Role Phone Steven Marcelo MD Unavailable [phone] Jayla Ontiveros MD Unavailable [phone] Modesta Valadez RN Unavailable Unavailable Suzanne Mora APRN Primary Care Provider [phone] Encounter Details Date Type Department Care Team (Latest Contact Info) Description 03/07/2024 Travel Social History Tobacco Use Types Packs/Day [...] Description 01/15/2025 2:45 PM EDT Office Visit [facility] - [address] [facility] [address] [place] [phone] Jayla Ontiveros MD [facility] [address] [place], [place] [phone] 09/19/2025 2:30 PM EST Appointment [facility] [address] [place] [address] documented as of this encounter Visit Diagnoses Not on filedocumented in this encounter Care Teams Tuberculosis Specialist Relationship Specialty Start Date End Date Suzanne Mora, OVEN LOADER [address] [place] [address] PCP - General Family Medicine 01/04/24 Steven Marcelo MD [address] [place] [phone] Surgeon General Surgery 09/07/22 Jayla Ontiveros MD [address] [address] Medical Oncologist Hematology and Oncology 09/07/22 Modesta Valadez RN Nurse Navigator 03/03/23 03/20/24 documented as of this encounter
--- OUTSIDE RECORDS SUMMARY | 2024-10-05 17:14 | XMS_ITS | Referral Summary ---
Author Organization [employer] Address [address] [place] [address] Care Team Providers Care Account Analyst Name Role Phone Steven Marcelo MD Unavailable Jayla Ontiveros MD Unavailable [phone] Suzanne Mora APRN Primary Care Provider [phone] Encounters Date Type Department Care Team Description 09/06/2024 Outside Orders [facility] [address] [facility] [address] [place] [address] Steven Marcelo MD History of breast cancer (Primary Dx) 09/06/2024 3:40 PM EDT - 09/06/2024 11:59 PM EDT Hospital Encounter [facility] [address] [facility] [address] [place] [address] Steven Marcelo MD History of breast cancer Discharge Disposition: Home or Self Care 09/06/2024 3:00 PM EDT - 09/06/2024 3:39 PM EDT Hospital Encounter [facility] [address] [address] Jayla Ontiveros MD 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 [place] [address] Steven Marcelo MD History of breast cancer Discharge Disposition: Home or Self Care 08/13/2024 Patient Outreach [facility] [address] [place] [address] Stefania Rojo CHW 08/13/2024 Travel 08/13/2024 3:30 PM EDT Office Visit [facility] [address] [facility] [address] [place] [address] Sree Murry MD Primary hypertension (Primary Dx); Elevated TSH from Last 3 Months Allergies Active Allergy Reactions Criticality Noted Date [...] Overview (12/24/2022): 1Problem added by a rule: [id number]. Kidney disease 11/25/2022 Pain of right mastoid 11/14/2022 Acute serous otitis media, r ecurrence not specified, unspecified laterality 11/14/2022 Coronary artery disease invo lving [place] heart without angina pectoris, unspecified vessel or lesion type 10/11/2022 Need for shingles vaccine 10/11/2022 Other specified hypothyroidism 10/10/2022 Mixed hyperlipidemia 10/10/2022 Malignant neoplasm of lower- inner quadrant of left breast in female, estrogen receptor positive 09/01/2022 Cancer Staging:Pathologic stage from 08/17/2022:Stage IA(pT1a, pN0(sn), cM0, G1, ER+, NE+, HER2-) - Signed by Osvaldo Flood MD on 09/07/2022 Clinical stage from 09/01/2022:Stage IA(cT1a, cN0(sn), cM0, G1, ER+, NE+, HER2-) - Signed by Jayla Ontiveros MD [...] medications and take 81 mg aspirin daily. Immunizations Name Administration Dates Next Due (Shingrix, Recombinant, Adju vanted) Zoster Vaccine IM 10/14/2022(Deferred: Other - Pt will get at the pharmacy) Influenza High Dose Preserva tive Free IM ([id number]) 08/25/2021,07/31/2020 Influenza, High Dose Seasonal 09/21/2022 Pneumococcal Conjugate (Prev bel) 13-Valent 09/28/2019 Pneumococcal Polysaccharide (Pneumovax) 09/28/2020 Tdap 10/14/2022(Deferred: Other - Pt will get at the pharmacy) Social History Tobacco Use Types Packs/Day Years [...] place to sleep or slept in a custodial (including now)? No 08/13/2024 Interpersonal Safety Answer [...] Date Martinez rded Speak language other than [place] Islander at home Not on file 11/16/2023 [...] Description 01/15/2025 2:45 PM EDT Office Visit [place] [facility] - [facility] [address] [phone] Jayla Ontiveros MD [address] [place] [address] 09/19/2025 2:30 PM EST Appointment [facility] [address] [facility] [address] [place] [address] Procedures Procedure Name Priority Date/Time Associated Diagnosis Comments DXA BONE DENSITY SPINE AND HIP Routine 09/06/2024 4:02 PM EDT 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 At our facility, a citizen [place]atom[place] marker is positioned over a visible skin [...] family history of breast cancer COMPARISON STUDY: Psychiatric 2022 through 2015 FINDINGS: Craniocaudal and mediolateral [...] recommended imaging studies/procedures. At our facility, a citizen [place]atom[place] marker is positioned over a visible skin [...] family history of breast cancer COMPARISON STUDY: Psychiatric 2022 through 2015 FINDINGS: Craniocaudal and mediolateral [...] 08/14/2024 8:12 AM EDT Performed at: ??[address] ??[id number] Transformation Analyst: Tomas Arechiga PhD, Phone: ??[phone] Result [facility] Sree Murry MD LAB BLOOD ORDERABLES Final Resul t Performing Organization Address City/[facility] Co de Phone Number [facility] * T3, free (08/13/2024 3:45 PM EDT) Triiodothyronin e,Free,Serum 2.8 2.0 - 4.4 pg/mL [facility] Blood 08/13/2024 3:45 PM EDT 08/13/2024 Narrative [facility] - 08/14/2024 8:12 AM EDT Performed at: ??01 - [facility] ??[id number] Transformation Analyst: Tomas Arechiga PhD, Phone: ??[phone] Sree Murry MD LAB BLOOD ORDERABLES Final Resul t [facility] * (ABNORMAL) TSH (08/13/2024 3:45 PM EDT) TSH 4.640(H) 0.450 - 4.500 uIU/mL [facility] Blood 08/13/2024 3:45 PM EDT 08/13/2024 Narrative [facility] - 08/14/2024 8:12 AM EDT Performed at: ??01 - [facility] [address] ??[id number] Transformation Analyst: Tomas Arechiga PhD, Phone: ??[phone] Result [facility] Sree Murry MD LAB BLOOD ORDERABLES Final Resul t Performing Organization Address [facility] de Phone Number [facility] * T4 (08/13/2024 3:45 PM EDT) Pathologist [facility] Thyroxine (T4) 5.8 4.5 - 12.0 ug/dL [facility] Blood 08/13/2024 3:45 PM EDT 08/13/2024 Narrative [facility] - 08/14/2024 8:12 AM EDT Performed at: ??01 - [facility] ??[id number] Transformation Analyst: Tomas Arechiga PhD, Phone: ??[phone] Sree Murry MD LAB BLOOD ORDERABLES Final Resul t Performing Organization Address [facility] Co de Phone Number [facility] * (ABNORMAL) Comprehensive metabolic panel (08/13/2024 3:45 PM EDT) [facility] Glucose, Serum 89 70 - 99 mg/dL [...] AM EDT Performed at: ??01 - [facility] [address] ??[id number] Transformation Analyst: Tomas Arechiga PhD, Phone: ??[phone] us Sree Murry MD LAB BLOOD ORDERABLES Final Resul t [facility] from Last 3 Months Insurance [employer] MEDICARE PPO Care Teams Account Analyst Relationship Specialty Start Date End Date Suzanne Mora APRN [address] [place] [address] PCP - General Family Medicine 01/04/24 Steven Marcelo MD [address] [place] [address] Surgeon General Surgery 09/07/22 Jayla Ontiveros MD [address] [place] [address] Medical Oncologist Hematology and Oncology 09/07/22
--- OUTSIDE RECORDS SUMMARY | 2024-10-05 17:15 | XMS_ITS | Encounter Summary ---
Author Organization [email or web address] Address [address] [place] [address] Care Team Providers Care Supervisor Line Department Name Role Phone Steven Marcelo MD Unavailable [phone] Jayla Ontiveros MD Unavailable [phone] Modesta Valadez RN Unavailable Unavailable Suzanne Mora APRN Primary Care Provider [phone] Reason for Referral * Ultrasound (Routine) - Closed Specialty Diagnoses / Procedures Referred By Jaswinder kan Referred To Contact Radiology Diagnoses Right upper quadrant abdominal pain Procedures US abdomen complete Suzanne Mora APRN [address] [place] [address] Phone: tel: fax: [facility] - [address] [place] [address] Phone: tel: fax: Referral ID Status Reason Start Date Expiration Date Visits Re quested Visits Authorized [id number] Closed 01/04/2024 07/02/2024 1 1 Reason for Visit * Reason Comments Establish Care Pt. [facility] with Suzanne Mora APRN. Former Komal Méndez APRN patient. Encounter Details Date Type Department Care Team (Late st Contact Info) Description 01/04/2024 3:00 PM EST Office Visit [facility] [address] [place] [address] Suzanne Mora APRN [address] [place] [address] Medicare annual wellness visit, subsequent (Primary Dx); Right upper quadrant abdominal pain Social History Tobacco Use Types Packs/Day Years Used Date Smoking Tobacco: Never Smokeless Tobacco: Never Alcohol Use Standard Drinks/Week Comments Not Currently 0 (1 standard drink = 0.6 oz pur e alcohol) PHQ-2 Answer Date Recorded Patient Health Questionnaire-2 Score 0 01/04/2024 Interpersonal Safety Answer Date Record ed Family [...] Date Martinez rded Speak language other than Azerbaijani at home Not on file 11/16/2023 Want [...] Sign Reading Time Taken Comments Blood Pressure 128/85 01/04/2024 3:09 PM EST Pulse 60 01/04/2024 3:09 PM EST Temperature 36.4 ??C (97.5 ??F) 01/04/2024 3:09 PM ES T Respiratory Rate - - Oxygen Saturation 98% 01/04/2024 3:09 PM EST Inhaled Oxygen Concentration - - Weight 57.4 kg (126 lb 9.6 oz) 01/04/2024 3:09 P M EST Height 170.2 cm (5' 7 ) 01/04/2024 3:09 PM EST Body Mass Index 19.83 01/04/2024 3:09 PM EST documented in this encounter Progress Notes * Suzanne Mora APRN - 01/04/2024 3:00 PM EST Subsequent Medicare Wellness Visit Must be 12 months post Initial Medicare Wellness Visit CPT Code is G0439 Guidance from Billing includes the following items: ??? Update Medical/Family history ? ? Measurement of Height, Weight, BMI, BP and complete exam including PAP/Breast & Prostate ifappropriate ??? Screening for Cognitive Disorder, Depression, ADL, and Falls ??? Update Health Risk Factors ??? Update HM list ??? Provide a written list of risk factors and screening tests to patient in the patient instructions ? ? Discuss End of Life & Advance Directives as appropriate. Chief Complaint: Chief Complaint Patient presents with ??? Establish Care Pt. Is here to establish care with Suzanne Mora APRN. Former Komal Méndez APRN patient. Screening Tools Assessment/Documentation: Behavioral Risk Factors: Smoking/Tobacco Use: Do you smoke cigarettes or use other types of tobacco? Has never smoked Alcohol Use: In a typical week, how many days do you drink alcohol? Does Not Drink Illicit Drug/Opioid Use: Is there any prior or current use of illicit drugs? No history of drug use Opioid Use: Is there chronic opioid use? No opioid use Evaluated for alternate therapy, pain, & opioid use disorder? N/A Diet: Are you on a special diet? No Self-Assessment of Health Status & Risk Factors: General Well-being: In general, would you say that your health is: Over all doing well Exercise: How intense is your typical exercise? Works daily, does not exercise Cognitive Screen: Evidence of Cognitive Impairment?: NO Plan: N/A (Optional Screenings: Complete Desired Tool in Screenings Section) Minicog total = 5 MMSE total = 27 (Mini-Cog Scorin-2 increased likelihood of cognitive impairment / 3-5 lower likelihood of cognitive impairment) (MMSE Scoring: >27 is normal / 19-26 mild cognitive impairment rescreen 6-12 months / 12-19 mildto mod. dementia: initiate treatment/refer / <12 mod. to severe dementia start or escalate treatment/refer. Consider home care or SNF) Depression Screen: PHQ2 = Patient Health Questionnaire-2 Score: 0 PHQ9 = Provider Interpretation: Revaluate every appointment (PHQ9 Depression Scorin-4 = None / 5-9 = Mild / 10-14 = Mod./ 15-19 = Moderately severe / > 20 = severe) Functional & Safety Assessment: Do you need help from others to perform everyday activities such as: The patient needs assistance with the following ADLs: No issues Do you need help from others to take care of such things as: The patient needs assistance with the following activities: NA Home Safety Screening: Do you live alone? No Does your home HAVE any of the following? The patient's home has the following home safety risks: NO Does your home LACK any of the following? The patient's home is missing the following safety items: NO Hearing Loss Screening: Do you have trouble hearing the television or radio when others do not? NO Do you have to strain or struggle to hear/understand conversations? NO Fall Screen: Have you had 2 or more falls in the past year? NO Any fall with in jury in the past year? NO Are you worried about falling or feel unsteady when standing or walking? NO Plan: Evaluate each appointment Advance Directives Discussion: Do you have an Advance Directive (Living Will)? Yes Advance Directives have been reviewed with Sheron Carvajal and/or family: Plan: NA (If not on file, [place]. specific Advance Directive Forms can be printed & given to patient as partof the after visit summary) 5-10 Year Screening Plan Medicare Wellness Visit Preventative Services Checklist reviewed with and given to patient; see copy in chart YES HPI: Sheron Carvajal is a 73 y.o. female who is here for her Medicare Annual Wellness physical exam. Her immunizations have been reviewed. Her age appropriate risk factors for cardiovascular disease, sexual risk, lifestyle risk have been reviewed and addressed. Other issues that she wishes to have addressed today include: Patient without any issues or concerns at this time. 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 She does feel fatigue at times but thinks it is fromwork and age . She was screened for falls risk, depression, functional ability and cognitive impairment today or within the past year. The results and plan are detailed below. ROS: Review of Systems Constitutional: Positive for fatigue. HENT: Negative. Eyes: Negative. Respiratory: Negative. Cardiovascular: Negative. Gastrointestinal: Negative. Endocrine: Negative. Genitourinary: Negative. Musculoskeletal: Negative. Skin: Negative. Allergic/Immunologic: Negative. Neurological: Negative. Hematological: Negative. Psychiatric/Behavioral: Negative. Chronic Problem List: Patient Active Problem List Diagnosis Date Noted ??? Subacromial bursitis of left shoulder joint 05/05/2023 ??? Pigmented skin lesion suspicious for malignant neoplasm 02/08/2023 ??? Localized osteoarthritis of left knee 01/06/2023 ??? At risk for sleep apnea 12/24/2022 ??? Atrial fibrillation (HCC) 12/24/2022 ??? Disease due to severe acute respiratory syndrome coronavirus 2 (SARS-CoV-2) 12/24/2022 ??? Kidney disease 11/25/2022 ??? Pain of right mastoid 11/14/2022 ??? Acute serous otitis media, recurrence not specified, unspecified laterality 11/14/2022 ??? Coronary artery disease involving [place] heart without angina pectoris, unspecified vessel or lesion type 10/11/2022 ??? Need for shingles vaccine 10/11/2022 ??? Other specified hypothyroidism 10/10/2022 ??? Mixed hyperlipidemia 10/10/2022 ??? Malignant neoplasm of lower-inner quadrant of left breast in female, estrogen receptor positive(HCC) 09/01/2022 ??? Asymptomatic menopausal state 09/01/2022 ??? Acute upper respiratory infection 07/22/2021 ??? Sore throat 07/22/2021 ??? Acute headache 04/17/2021 ??? Impairment of balance 04/17/2021 ??? Chronic kidney disease 03/10/2021 ??? Knee pain 11/04/2020 ??? History of colonic polyps 03/10/2020 ??? Osteopenia 03/07/2020 ??? Encounter for screening for cardiovascular disorders 03/04/2020 ??? Arthritis 03/04/2020 ??? Sick sinus syndrome (HCC) 03/04/2020 ??? Tubular adenoma of colon 03/04/2020 ??? Sciatica 02/27/2020 ??? Low back pain 01/21/2020 ??? Muscle strain 01/21/2020 ??? Recurrent urinary tract infection 01/21/2020 ??? Acute urinary tract infection 11/13/2019 ??? Anemia 11/13/2019 ??? Dehydration 11/13/2019 ??? Personal history of urinary (tract) infections 11/13/2019 ??? Hypertensive disorder 03/09/2018 Immunization History: Immunization History Administered Date(s) Administered ??? Covid-19 Vaccine MRNA (PF) 18yr+ (Moderna)([id number]) 02/11/2021, 03/13/2021, 10/17/2021 ??? Influenza High Dose Preservative Free IM ([id number]) 07/31/2020, 08/25/2021 ??? Influenza, High Dose Seasonal 09/21/2022 ??? Pneumococcal Conjugate (Prevnar) 13-Valent 09/28/2019 ??? Pneumococcal Polysaccharide (Pneumovax) 09/28/2020 Past Medical/Surgical History: Past Medical History: Diagnosis Date ??? Anemia ??? Atrial fibrillation (HCC) ??? Chronic kidney disease ??? H/O tubal ligation 1983 ??? Heart disease ??? Hypertension Past Surgical History: Procedure Laterality Date ??? BREAST BIOPSY ??? BREAST LUMPECTOMY Left 2021 ??? LUMPECTOMY,SENTINAL NODE Left 08/17/2022 Procedure: LUMPECTOMY, BREAST, WITH SENTINEL LYMPH NODE BIOPSY WITH NEEDLE LOC; Surgeon: Steven Marcelo MD; Location: [facility]; Service: General Surgery; Laterality: Left; ??? pace maker 2019 Family History: Family History Problem Relation Age of Onset ??? Breast cancer Neg Hx ??? Ovarian cancer Neg Hx Extended Social History: Social History Socioeconomic History ??? Marital status: [...] on file ??? : Not on file Care Team: (DME & other suppliers can be entered as free text when adding Care Team members) Patient Care Team: Suzanne Mora APRN as PCP - General (Family Medicine) Steven Marcelo MD as Surgeon (General Surgery) Jayla Ontiveros MD as Medical Oncologist (Hematology and Oncology) Modesta Valadez RN as Nurse Navigator Health Maintenance Topic Date Due ??? Colon Cancer Screening Never done ??? Statin - ASCVD Risk Prevention Never done ??? Influenza Vaccine (1) 07/08/2023 ??? COVID-19 VACCINE ( season) 2023 ??? MEDICARE SUBSEQUENT WELLNESS (YEAR 3 +) 10/08/2023 ??? FALLS RISK SCREENING 11/07/2023 ??? DTAP/TDAP/TD VACCINES (1 - Tdap) 01/04/2025 (Originally 1969) ??? BREAST CANCER SCREENING 09/01/2024 ??? DXA SCAN 11/29/2024 ??? Tobacco Cessation Counseling and Screening (12+) 01/04/2025 ??? PNEUMOCOCCAL 65+ YRS Completed ??? DEPRESSION SCREENING (12+) Completed ??? HEPATITIS C SCREENING Addressed ??? Respiratory Syncytial Virus (RSV) Adult or Discontinued ??? SHINGLES VACCINES Discontinued Objective: Outpatient Medications Prior to Visit Medication Sig Dispense Refill ??? amLODIPine (NORVASC) 5 MG tablet Take 1 tablet (5 mg total) by mouth daily. ??? anastrozole (ARIMIDEX) 1 mg tablet Take 1 tablet (1 mg total) by mouth daily for 360 doses. 90 tablet 3 ??? cholecalciferol (VITAMIN D3) 125 mcg (5,000 unit) capsule Take by mouth. ??? Eliquis 5 MG tablet Take 1 tablet (5 mg total) by mouth 2 (two) times daily. ??? ferrous sulfate 325 (65 FE) MG EC tablet Take 1 tablet (325 mg total) by mouth 2 (two) times daily. ??? lisinopriL (PRINIVIL,ZESTRIL) 40 MG tablet Take by mouth. ??? metoprolol succinate (TOPROL-XL) 25 MG 24 hr tablet Take 1 tablet (25 mg total) by mouth daily. ??? omega-3s/dha/epa/fish oil/D3 (VITAMIN-D + OMEGA-3 ORAL) Vitamin D ??? aqws-AL-[id number]-[id number]-ZBH-[id number]-mv 1.5 mg iron- 8.73 mg CpID iron Facility-Administered Medications Prior to Visit Medication Dose Route Frequency Provider Last Rate Last Admin ??? lidocaine (PF) injection 10 mg/mL (1%) 1 mL Intra-articular Once Reji Moore PA-C VS: BP 128/85 Pulse 60 Resp Temp 97.5 ??F (36.4 ??C) SpO2 98% Wt 57.4 kg (126 lb 9.6 oz) Ht 1.702 m (5' 7 ) Body mass index is 19.83 kg/m??. PE: Physical Exam Vitals reviewed. Constitutional: Appearance: Normal appearance. She is well-developed and well-groomed. HENT: Head: Normocephalic and atraumatic. Eyes: General: Lids are normal. Extraocular Movements: Extraocular movements intact. Conjunctiva/sclera: Conjunctivae normal. Neck: Thyroid: No thyroid mass, thyromegaly or thyroid tenderness. Cardiovascular: Rate and Rhythm: Normal rate and regular rhythm. Heart sounds: Normal heart sounds. Pulmonary: Effort: Pulmonary effort is normal. Breath sounds: Normal breath sounds and air entry. Musculoskeletal: Right lower leg: No edema. Left lower leg: No edema. Neurological: General: No focal deficit present. Mental Status: She is alert. Cranial Nerves: Cranial nerves 2-12 are intact. Psychiatric: Attention and Perception: Attention and perception normal. Mood and Affect: Mood and affect normal. Speech: Speech normal. Behavior: Behavior normal. Behavior is cooperative. Thought Content: Thought content normal. Assessment/Plan: Diagnoses and all orders for this visit: Medicare annual wellness visit, subsequent - Comprehensive metabolic panel; Future - Lipid Panel With LDL/HDL Ratio; Future - CBC (Hemogram only); Future - Vitamin D, 25-Hydroxy; Future - TSH; Future Right upper quadrant abdominal pain - US abdomen complete; Future Discussion/Summary: Patient here for Medicare Wellness exam. Will get labs and update poc as needed. 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 [address] [place] [address] 09/19/2025 2:30 PM EST Appointment [facility] [address] [place] [address] documented as of this encounter Procedures Procedure Name Priority Date/Time Associated Diagnosis Comments LIPID PANEL WITH LDL/HDL RATIO ([facility]) Routine 01/04/2024 3:42 PM EST Medicare annual wellness visit, subsequent VITAMIN D, 25-HYDROXY Routine 01/04/2024 3:42 PM EST Medicare annual wellness visit, subsequent CBC (HEMOGRAM ONLY) Routine 01/04/2024 3 :42 PM EST Medicare annual wellness visit, subsequent TSH Routine 01/04/2024 3:42 PM EST Medicare annual wellness visit, subsequent COMPREHENSIVE METABOLIC PANEL Routine 01/04/2024 3:42 PM EST Medicare annual wellness visit, subsequent documented in this encounter Results * US [...] APRN IMG US ORDERABLES Final Res ult * (ABNORMAL) TSH (01/04/2024 3:42 PM EST) TSH 5.150(H) 0.450 - 4.500 uIU/mL [facility] Blood 01/04/2024 3:42 PM EST 01/04/2024 Narrative [facility] - 01/05/2024 6:10 AM EST Performed at: ??01 - [facility] [address] ??[id number] Encephalographer: oTmas Arechiga PhD, Phone: ??[phone] Suzanne Mora APRN LAB BLOOD ORDERABLES Final Result [facility] * Vitamin D, 25-Hydroxy (01/04/2024 3:42 PM EST) Vitamin D, 25-Hydroxy 34.2 30.0 - 100.0 ng/mL [facility] Comment: Vitamin D deficiency has been defined by the [place] of Medicine and an Endocrine Society practice guideline as a level of serum 25-OH vitamin D less than 20 ng/mL (1,2). The Endocrine Society went on to further define vitamin D insufficiency as a level between 21 and 29 ng/mL (2). 1. IOM ([place] of Medicine). 2010. Dietary reference ?? intakes for calcium and D. [place]: The ?? National AcademThe World [employer] Press. 2. Maxime MF, Julius NC, Laurie COHEN, et al. ?? Evaluation, treatment, and prevention of vitamin D ?? deficiency: an Endocrine Society clinical practice ?? guideline. JCEM. 2010; 96(7):1911-30. Blood 01/04/2024 3:42 PM EST 01/04/2024 Narrative [facility] - 01/05/2024 6:10 AM EST Performed at: ??01 - [facility] [address] ??[id number] Encephalographer: Tomas Arechiga PhD, Phone: ??[phone] Suzanne Mora APRN LAB BLOOD ORDERABLES Final Result Performing Organization Address [facility] de Phone Number [facility] * CBC (Hemogram only) (01/04/2024 3:42 PM EST) WBC 6.4 3.4 - 10.8 x10E3/uL [facility] RBC 4.46 3.77 - 5.28 x10E6/uL [facility] Hemoglobin 13.1 11.1 - 15.9 g/dL [facility] Hematocrit 41.1 34.0 - 46.6 % [facility] MCV 92 79 - 97 fL [facility] MCH 29.4 26.6 - 33.0 pg [facility] MCHC 31.9 31.5 - 35.7 g/dL [facility] RDW 12.3 11.7 - 15.4 % [facility] Platelets 220 150 - 450 x10E3/uL [facility] Blood 01/04/2024 3:42 PM EST 01/04/2024 Narrative [facility] - 01/05/2024 6:10 AM EST Performed at: ??01 - [facility] [address] ??[id number] Encephalographer: Tomas Arechiga PhD, Phone: ??[phone] Suzanne Mora APRN LAB BLOOD ORDERABLES Final Result Performing Organization Address City/[facility] de Phone Number [facility] * (ABNORMAL) Lipid Panel With LDL/HDL Ratio (01/04/2024 3:42 PM EST) Cholesterol, Total 194 100 - 199 mg/dL [facility] Triglycerides 95 0 - 149 mg/dL [facility] HDL Cholesterol 66 >39 mg/dL [facility] VLDL Cholesterol Fran 17 5 - 40 mg/dL [facility] LDL Calculated 111(H) 0 - 99 mg/dL [facility] LDl/HDL Ratio 1.7 0.0 - 3.2 ratio [facility] Comment: ?LDL/HDL Ratio ?Men ??Women ?1/2 Avg.Risk ??1.0 ?1.5 ?Avg.Risk ??3.6 ?3.2 ? 2X Avg.Risk ??6.2 ?5.0 ? 3X Avg.Risk ??8.0 ?6.1 Blood 01/04/2024 3:42 PM EST 01/04/2024 Narrative [facility] - 01/05/2024 6:10 AM EST Performed at: ??01 - [facility], [place], [place] ??[id number] Encephalographer: Tomas Arechiga PhD, Phone: ??[phone] us Suzanne Mora APRN LAB BLOOD ORDERABLES Final Result [facility] * (ABNORMAL) Comprehensive metabolic panel (01/04/2024 3:42 PM EST) Glucose, Serum 87 70 - 99 mg/dL [facility] BUN 15 8 - 27 mg/dL [facility] Creatinine, Serum 1.26(H) 0.57 - 1.00 mg/dL [facility] EGFR 46(L) >59 mL/min/1.7 3 [facility] BUN/Creatinine Ratio 12 12 - 28 [facility] Sodium, Serum 142 134 - 144 mmol/L [facility] Potassium, Serum 4.3 3.5 - 5.2 mmol/L [facility] Chloride, Serum 100 96 - 106 mmol/L [facility] Carbon Dioxide, Total 28 20 - 29 mmol/L [facility] Calcium, Serum 10.2 8.7 - 10.3 mg/dL [facility] Protein, Total, Serum 7.4 6.0 - 8.5 g/dL [facility] Albumin, Serum 5.0(H) 3.8 - 4.8 g/dL [facility] Globulin, Total 2.4 1.5 - 4.5 g/dL [facility] A/G Ratio 2.1 1.2 - 2.2 [facility] Bilirubin, Total 0.5 0.0 - 1.2 mg/dL [facility] Alkaline Phosphatase, S 100 44 - 121 IU/L [facility] AST (SGOT) 19 0 - 40 IU/L [facility] ALT (SGPT) 12 0 - 32 IU/L [facility] Blood 01/04/2024 3:42 PM EST 01/04/2024 Narrative [facility] - 01/05/2024 6:10 AM EST Performed at: ??01 - [facility] [address] ??[id number] Encephalographer: Tomas Arechiga PhD, Phone: ??[phone] Suzanne Mora APRN LAB BLOOD ORDERABLES Final Result Performing Organization Address City/State/[facility] mo Phone Number [facility] documented in this encounter Visit Diagnoses Diagnosis Medicare annual wellness visit, subsequent- Primary Right upper quadrant abdominal pain Right upper quadrant abdominal pain documented in this encounter Care Teams Supervisor Line Department Relationship Specialty Start Date End Date Suzanne Mora APRN [address] [place] [address] PCP - General Family Medicine 01/04/24 Steven Marcelo MD [address] [place] [address] Surgeon General Surgery 09/07/22 aJyla Ontiveros MD [address] [place] [address] Medical Oncologist Hematology and Oncology 09/07/22 Rory, Modesta Walsh RN Nurse Navigator 03/03/23 03/20/24 documented as of this encounter
--- OUTSIDE RECORDS SUMMARY | 2024-10-05 17:15 | XMS_ITS | Encounter Summary ---
Author Organization [employer] Address [address] [place] [address] Care Team Providers Care Apparel Rental Clerk Name Role Phone [facility] Radha Nick ROSS Primary Care Provider + [phone] Steven Marcelo MD Unavailable [phone] Jayla Ontiveros MD Unavailable [phone] Reason for Visit * Reason Comments Left shoulder pain Encounter Details Date Type Department Care Team (Late st Contact Info) Description 12/23/2022 3:45 PM EST Office Visit [facility] Orthopedics - [address] [place] [address] Reji Moore PA-C [address] [place] [address] Subacromial bursitis of left shoulder joint (Primary Dx) Social History Tobacco Use Types Packs/Day Years Used Date Smoking Tobacco: Never Smokeless Tobacco: Never Alcohol Use Standard Drinks/Week Comments Not Currently 0 (1 standard drink = 0.6 oz pur e alcohol) PHQ-2 Answer Date Recorded Patient Health Questionnaire-2 Score 0 10/08/2022 Comments No Sex and Gender Information Value Date Recorded Sex Assigned at Not on file Legal Sex Female 4:30 PM CDT Gender Identity Not on file Sexual Orientation Not on file COVID-19 Exposure Response Date Recorded In the last 10 days, have yo u been in contact with someone who was confirmed or suspected to have Coronavirus/COVID-19? No / Unsure 03/11/2023 1:35 PM EDT documented as of this encounter Last Filed Vital Signs Vital Sign Reading Time Taken Comments Blood Pressure - - Pulse - - Temperature - - Respiratory Rate 18 12/23/2022 4:04 PM EST Oxygen Saturation - - Inhaled Oxygen Concentration - - Weight 60.3 kg (133 lb) 12/23/2022 4:04 PM EST Height 170.2 cm (5' 7 ) 12/23/2022 4:04 PM EST Body Mass Index 20.83 12/23/2022 4:04 PM EST documented in this encounter Progress Notes * Reji Moore PA-C - 12/23/2022 3:45 PM EST NAME: Sheron Carvajal CSN: [id number] : 1950 PCP: RADHA SWAN APRN REASON FOR VISIT Left shoulder pain HPI Sheron Carvajal is a 72 y.o. female who presents today for a follow-up injection in left Subacromial Bursa Patient's previous injection date: 05/18/2022 Patient rates their pain today as 2 out of 10 Patient denies any new injuries or issues Patient requests a repeat injection today Patient verbalized consent for today's procedure and answered the following questions as listed below: Are you Diabetic: no Allergy to Iodine/Betadine/Shell fish: no Allergy to latex adhesive: no Allergy to steroids: no Recent Covid vaccine within the last two weeks: no Currently taking antibiotics: no Current infections or wounds: no Recent fractures or scheduled surgeries: no CURRENT MEDICATIONS Current Outpatient Medications on File Prior to Visit Medication Sig Dispense Refill ??? amLODIPine (NORVASC) 5 MG tablet Take 1 tablet (5 mg total) by mouth in the morning. ??? anastrozole (ARIMIDEX) 1 mg tablet Take 1 tablet (1 mg total) by mouth daily for 360 doses. 90 tablet 3 ??? apixaban (ELIQUIS) 2.5 mg Tab tablet Take by mouth. ??? cholecalciferol (VITAMIN D3) 125 mcg (5,000 unit) capsule Take by mouth. ??? diclofenac sodium-menthoL 1.5-10 % Cmpk Take by mouth. ??? Eliquis 5 MG tablet Take 1 tablet (5 mg total) by mouth in the morning and 1 tablet (5 mg total) before bedtime. ??? totg-OY-uxt-qib-TWA-SFBC-be-mv 1.5 mg iron- 8.73 mg CpID iron ??? lisinopriL (PRINIVIL,ZESTRIL) 40 MG tablet Take by mouth. ??? metoprolol succinate (TOPROL-XL) 25 MG 24 hr tablet Take 1 tablet (25 mg total) by mouth in themorning. ??? omega-3s/dha/epa/fish oil/D3 (VITAMIN-D + OMEGA-3 ORAL) Vitamin D ??? ondansetron (ZOFRAN-ODT) 4 MG disintegrating tablet ondansetron 4 mg disintegrating tablet ??? oxyCODONE-acetaminophen (PERCOCET) 5-325 mg per tablet Take 1 tablet by mouth. No current facility-administered medications on file prior to visit. ALLERGIES Allergies Allergen Reactions ??? Nsaids (Non-Steroidal Anti-Inflammatory Drug) Hives Single kidney---functioning at 50% ??? Valdecoxib PAST MEDICAL/SURGICAL HISTORY Past Medical History: Diagnosis Date ??? Anemia ??? Atrial fibrillation (HCC) ??? Chronic kidney disease ??? H/O tubal ligation 1983 ??? Heart disease ??? Hypertension Past Surgical History: Procedure Laterality Date ??? BREAST BIOPSY ??? BREAST LUMPECTOMY Left 2021 ??? LUMPECTOMY,SENTINAL NODE Left 08/17/2022 Procedure: LUMPECTOMY, BREAST, WITH SENTINEL LYMPH NODE BIOPSY WITH NEEDLE LOC; Surgeon: Steven Marcelo MD; Location: [facility]; Service: General Surgery; Laterality: Left; ??? pace maker 2019 SOCIAL HISTORY Social History Tobacco Use ??? Smoking status: Never ??? Smokeless tobacco: Never Vaping Use ??? Vaping Use: Never used Substance Use Topics ??? Alcohol use: Not Currently ??? Drug use: Never FAMILY HISTORY Family History Problem Relation Age of Onset ??? Breast cancer Neg Hx ??? Ovarian cancer Neg Hx REVIEW OF SYSTEMS General: No recent fever or chills, no recent weight loss or weight gain, no insomnia HEENT: No change in vision, no glasses/contacts, no hearing loss, no tinnitus, no vertigo, no congestion/sinus issues CVS: No chest pain, no palpitations, no edema, no varicose veins Resp: No dyspnea, no wheezing, no cough, no hemoptysis GI: No dysphagia, no nausea, no vomiting, no heart burn, no constipation, no diarrhea : No dysuria, no hematuria, no nocturia, no history of chronic UTI Musculoskeletal: See HPI Derm: No rash, no abrasions, no skin discoloration, no history or MRSA Neuro: No headaches, no seizures, no stroke, no tremors, no muscle weakness, no difficulty walking,no numbness/tingling, no neuropathy Endo: No cold/heat intolerance Heme: No abnormal bruising or bleeding Psych: No depression, no anxiety, no fatigue, no mood swings. OBJECTIVE Vitals: 12/23/22 1604 Resp: 18 Weight: 60.3 kg (133 lb) Height: 1.702 m (5' 7 ) GEN: well-appearing, well-nourished NEURO: grossly NVI SKIN: warm, intact, no lesions, no erythema Physical Exam Vitals reviewed. Constitutional: Appearance: Normal appearance. HENT: Head: Normocephalic and atraumatic. Skin: General: Skin is warm and dry. Capillary Refill: Capillary refill takes less than 2 seconds. Findings: No bruising or erythema. Neurological: Mental Status: She is alert and oriented to person, place, and time. Gait: Gait normal. Psychiatric: Mood and Affect: Mood normal. Behavior: Behavior normal. ASSESSMENT Problem List Items Addressed This Visit Musculoskeletal and Integument Subacromial bursitis of left shoulder joint - Primary PLAN 1. Follow-up in 3 months for repeat injection 2. Ice affected joint 3. Watch for signs of infection, return to clinic if symptoms appear 4. Return to clinic sooner if new symptoms occur as discussed or if symptoms worsen 5. Injection performed today, as noted below PROCEDURE Diabetes education: No Steroid Injection: Left Subacromial Bursa Injection: Indication: left Subacromial pain Consent: The risks, benefits, and alternatives of procedure were discussed with the patient including but not limited to pain, infection, and bleeding. All questions were answered and informed consent was obtained. Prep: The injection site was identified and confirmed with patient as correct extremity. The site was prepped in a standard sterile manner. The skin overlying the area was anesthetized with ethyl chloride. Procedure: The needle was inserted into above injection site, then was injected with 1cc of 1% lidocaine Lot# [id number] and 1 cc of 40mg Depo-medrol Lot# [id number] Post-procedure: The patient tolerated the procedure well without complications. Post injection instructions were given and questions were answered to the best of my knowledge. Adverse effects: None. Injection was performed by: Reji Moore PA-C Scribe Attestation: Kavitha Taylor CMA acted as a scribe and transcribed components of the current encounter under the direction of the Attending Provider. I have not been involved in providing any clinical treatments or patient care. Electronically Signed, Kavitha Mejias CMA I, Robert Coleman, PA-C attest that I have examined the above patient. I have dictated the exam, diagnosis, and plan to the scribe listed above to be transcribed into this document. I have supplemented the above documentation as warranted. I attest that I have reviewed the above documentation in its entirety and concur. Electronically Signed, Reji Moore PA-C 34:06 PM Reynolda Bene: [facility]im[facility] GERARDO / [facility] is undergoing an EHR transition as of this date of service. There may be a delay in uploading older paper and EHR chart data to this new system. The above encounter has been documented to the best of the provider's working knowledge of the EHR in conjunction with medical information provided by the patient (and/or the patient's family member). documented in this encounter Plan of Treatment Upcoming Encounters Date Type Department Care Team (Late st Contact Info) Description 01/15/2025 2:45 PM EDT Office Visit [facility] - [facility] [address] [facility] [address] [place] [id number] Jayla Ontiveros MD [address] [facility] [address] [place] [address] 09/19/2025 2:30 PM EST Appointment [address] [place] [address] Scheduled Orders Name Type Priority Associated Diagnoses Orde r Schedule Arthrocentsis aspiration/inj major jt/bursa w/o us Procedures Routine Subacromial bursitis of left shoulder joint Ordered: 05/05/2023 documented as of this encounter Visit Diagnoses Diagnosis Subacromial bursitis of left shoulder joint- Primary documented in this encounter Care Teams Apparel Rental Clerk Relationship Specialty Start Date End Date Radha Swan, INTERNSHIP COORDINATOR PCP - General Primary Care 09/07/22 01/03/24 Steven Marcelo MD [address] [place] [address] Surgeon General Surgery 09/07/22 Jayla Ontiveros MD [address] [facility] [address] [place] [address] Medical Oncologist Hematology and Oncology 09/07/22 documented as of this encounter
--- OUTSIDE RECORDS SUMMARY | 2024-10-05 17:15 | XMS_ITS | Encounter Summary ---
Author Organization [employer] Address [address] [place] [address] Care Team Providers Care Air Cargo Specialist Supervisor Name Role Phone Komal Méndez APRN Primary Care Provider + [phone] Steven Marcelo MD Unavailable [phone] Jayla Ontiveros MD Unavailable [phone] Reason for Visit * Reason Onset Date Comments ENT referral 01/05/2023 Encounter Details Date Type Department Care Team (Late st Contact Info) Description 01/05/2023 Telephone [facility] Primary Care [address] [facility] [address] [place] [address] Komal Méndez APRN [address] [facility] [address] [place] [address] ENT referral Social History Tobacco Use Types Packs/Day Years [...] encounter Miscellaneous Notes * Telephone Encounter - Patricia Martin - 01/05/2023 3:06 PM EST Called and answered all of pt's questions. E MANAGEMENT SPECIALIST * Telephone Encounter - Santoaarticherelle Mcgarry - 01/05/2023 2:56 PM EST Can you follow up with this? E MANAGEMENT SPECIALIST * Telephone Encounter - Leydi Jones - 01/05/2023 2:33 PM EST Patient called the office requesting CT results. I read patient results per [employer] message verbatim. Patient wants to know the status & process for ENT appointment. Does she need to get CT disc or will referring office request CT disc. Patient request a call back at [phone]. E MANAGEMENT SPECIALIST documented in this encounter Plan of Treatment Upcoming Encounters Date Type Department Care Team (Late st Contact Info) Description 01/15/2025 2:45 PM EDT Office Visit [facility] - [address] [facility] [address] [place] [address] Jayla Ontiveros MD [address] [place] [address] [address] [place] [address] 09/19/2025 2:30 PM EST Appointment [facility] Breast [facility] [address] [facility] [address] [place] [address] documented as of this encounter Visit Diagnoses Not on filedocumented in this encounter Care Teams Air Cargo Specialist Supervisor Relationship Specialty Start Date End Date Komal Méndez APRN PCP - General Primary Care 09/07/22 01/03/24 Steven Marcelo MD [address] [place] [address] Surgeon General Surgery 09/07/22 Jayla Ontiveros MD [address] [place] [address] Medical Oncologist Hematology and Oncology 09/07/22 documented as of this encounter
--- OUTSIDE RECORDS SUMMARY | 2024-10-05 17:15 | XMS_ITS | Encounter Summary ---
Author Organization [employer] Address [address] [place] [address] Care Team Providers Care Wardrobe Supervisor Name Role Phone Komal Méndez APRN Primary Care Provider + [phone] Steven Marcelo MD Unavailable [phone] Jayla Ontiveros MD Unavailable [phone] Reason for Visit * Reason Comments Follow-up Encounter Details Date Type Department Care Team (Late st Contact Info) Description 02/24/2023 3:45 PM EDT Office Visit [facility] [address] [facility] [address] [place] [address] Steven Marcelo MD [address] [facility] [address] [place] [address] History of breast cancer (Primary [...] suspected to have Coronavirus/COVID-19? No / Unsure 01/25/2023 4:43 PM EDT documented as of this encounter Progress Notes * Steven Marcelo MD - 02/24/2023 3:45 PM EDT Subjective: Sheron Carvajal is a 72 y.o. female. Chief Complaint Patient presents with ??? Follow-up I have reviewed and/or updated the following: HPI Ms. Carvajal is 6-months status post left lumpectomy and sentinel lymph node biopsy. She had a baseline left-sided mammogram today which was unremarkable. I reviewed the images. She is doing well and is on anastrozole. Review of Systems All other systems reviewed and are negative. Objective: There were no vitals taken for this visit. Physical Exam she has well-healed lumpectomy incisions on the left without evidence of recurrence. Examination of the right breast is unremarkable. Assessment: 1. History of breast cancer Plan: I am pleased that she continues to do well. Unless she develops any new problems or concerns I willsee her back in 6 months with a bilateral mammogram. No follow-ups on file. documented in this encounter Plan of Treatment Upcoming Encounters Date Type Department Care Team (Late st Contact Info) Description 01/15/2025 2:45 PM EDT Office Visit [facility] - [place] [address] [phone] Jayla Ontiveros MD [address] [place] [address] 09/19/2025 2:30 PM EST Appointment [facility] [address] [facility] [address] [place] [address] documented as of this encounter Visit Diagnoses Diagnosis History of breast cancer- Primary Personal history of malignant neoplasm of breast documented in this encounter Care Teams Wardrobe Supervisor Relationship Specialty Start Date End Date Komal Méndez APRN PCP - General Primary Care 09/07/22 01/03/24 Steven Marcelo MD [address] [facility] [address] [place] [address] Surgeon General Surgery 09/07/22 Jayla Ontiveros MD [address] [facility] [address] [place] [address] Medical Oncologist Hematology and Oncology 09/07/22 documented as of this encounter
--- OUTSIDE RECORDS SUMMARY | 2024-10-05 17:15 | XMS_ITS | Encounter Summary ---
Author Organization [employer] Address [address] [place] [address] Care Team Providers Care Consultative Sales Associate Name Role Phone Komal Méndez BODY DESIGN CHECKER Primary Care Provider + [phone] Steven Marcelo MD Unavailable [phone] Jayla Ontiveros MD Unavailable [phone] Modesta Valadez RN Unavailable Unavailable Reason for Visit * Reason Comments Follow-up Breast Cancer Encounter Details Date Type Department Care Team (Late st Contact Info) Description 03/11/2023 2:15 PM EDT Office Visit [facility] - [facility] [place] [address] [place] [address] [address] [place] [address] Cele Grant PA-C [address] [facility] [address] [place] [address] Malignant neoplasm of lower-inner quadrant of left breast in female, estrogen receptor positive (HCC) (Primary Dx); Asymptomatic menopausal state Social History Tobacco Use Types Packs/Day Years [...] Sign Reading Time Taken Comments Blood Pressure 128/82 03/11/2023 1:43 PM EDT Pulse 77 03/11/2023 1:43 PM EDT Temperature 36.6 ??C (97.9 ??F) 03/11/2023 1:43 PM ED T Respiratory Rate 16 03/11/2023 1:43 PM EDT Oxygen Saturation 99% 03/11/2023 1:43 PM EDT Inhaled Oxygen Concentration - - Weight 58.5 kg (129 lb) 03/11/2023 1:43 PM EDT Height - - Body Mass Index 20.2 01/25/2023 3:59 PM EDT documented in this encounter Progress Notes * Cele Grant PA-C - 03/11/2023 2:15 PM EDT Images from the original note were not included. [facility] Medical Oncology [address] [address], [address] [place] [address] Patient: Sheron Carvajal : 1950 Date: 03/11/2023 Diagnosis: No diagnosis found. Cancer History: 1. 07/07/2022: Abnormal mammogram with subcentimeter nodule in left lower inner quadrant. 2. 07/19/2022: Left Breast Biopsy, invasive ductal carcinoma, grade 1, ER/VT+, Her2-. 3. 08/17/2022: Left Breast Lumpectomy, invasive ductal carcinoma, grade 1, 5mm in greatest dimension, DCIS present, margins uninvolved, Left Breast [place] Lymph Node, 1 negative lymph node. [id number] 4. Left partial breast radiation x 5 fractions 09/21/2022-09/27/2022. 5. Started anastrozole 08/2022, still taking Chief Complaint Patient presents with ??? Follow-up ??? Breast Cancer History of Present Illness: Sheron is a 72 y.o. female who presents for follow up visit for leftbreast cancer, s/p lumpectomy, radiation and now AI therapy. She is tolerating anastrozole well. Denies any hot flashes or joint pain. She does have arthritis in her hands, but this was present priorto diagnosis. Her skin is doing well after completing radiation with some mild tenderness to palpation in incision areas and bronzed irradiated area on inner left breast. No health issues aside from UTI in November. ECOG 0 Past Medical History: Diagnosis Date ??? Anemia ??? Atrial fibrillation (HCC) ??? Chronic kidney disease ??? H/O tubal ligation 1983 ??? Heart disease ??? Hypertension Past Surgical History: Procedure Laterality Date ??? BREAST BIOPSY ??? BREAST LUMPECTOMY Left 2021 ??? LUMPECTOMY,SENTINAL NODE Left 08/17/2022 Procedure: LUMPECTOMY, BREAST, WITH SENTINEL LYMPH NODE BIOPSY WITH NEEDLE LOC; Surgeon: Steven Marcelo MD; Location: [facility]; Service: General Surgery; Laterality: Left; ??? pace maker 2019 Social History Tobacco Use ??? Smoking status: Never ??? Smokeless tobacco: Never Vaping Use ??? Vaping Use: Never used Substance Use Topics ??? Alcohol use: Not Currently ??? Drug use: Never Family History: No history of malignancy Allergies Allergen Reactions ??? Nsaids (Non-Steroidal Anti-Inflammatory Drug) Hives Single kidney---functioning at 50% ??? Valdecoxib Current Outpatient Medications Medication Sig Dispense Refill ??? amLODIPine (NORVASC) [...] (5,000 unit) capsule Take by mouth. ??? ciprofloxacin HCl (CIPRO) 500 MG tablet Take 1 tablet (500 mg total) by mouth in the morning. ??? diclofenac sodium-menthoL 1.5-10 % Cmpk Take by mouth. ??? Eliquis 5 MG tablet Take 1 tablet (5 mg total) by mouth in the morning and 1 tablet (5 mg total) before bedtime. ??? ferrous sulfate 325 (65 FE) MG EC tablet Take 1 tablet (325 mg total) by mouth in the morning and 1 tablet (325 mg total) before bedtime. ??? [id number] 1.5 mg iron- 8.73 mg CpID iron [...] tablet by mouth. No current facility-administered medications for this visit. Review of Systems Constitutional: Negative for activity change, appetite change, chills, diaphoresis, fatigue, fever and unexpected weight change. HENT: Negative for congestion, mouth sores, nosebleeds, postnasal drip, rhinorrhea, sore throat andtrouble swallowing. Eyes: Negative for discharge. Respiratory: Negative for cough, chest tightness, shortness of breath and wheezing. Cardiovascular: Negative for chest pain, palpitations and leg swelling. Gastrointestinal: Negative for abdominal distention, abdominal pain, blood in stool, constipation, diarrhea, nausea and vomiting. Genitourinary: Negative for decreased urine volume, difficulty urinating, flank pain, hematuria andurgency. Musculoskeletal: Positive for arthralgias (hands). Negative for back pain and myalgias. Skin: Negative for rash and wound. Allergic/Immunologic: Negative for immunocompromised state. Neurological: Negative for dizziness, tremors, weakness, light-headedness, numbness and headaches. Hematological: Negative for adenopathy. Does not bruise/bleed easily. Psychiatric/Behavioral: Negative for confusion, dysphoric mood and sleep disturbance. The patient is not nervous/anxious. All other systems reviewed and are negative. Vital Signs: BP 128/82 (BP Location: Left arm, Patient Position: Sitting) Pulse 77 Temp 97.9 ??F (36.6 ??C) Resp 16 Wt 58.5 kg (129 lb) SpO2 99% BMI 20.20 kg/m?? Body mass index is 20.2 kg/m??. Physical Exam Vitals and nursing note reviewed. Constitutional: General: She is not in acute distress. Appearance: Normal appearance. She is normal weight. She is not ill-appearing. HENT: Head: Normocephalic and atraumatic. Nose: Nose normal. Mouth/Throat: Mouth: Mucous membranes are moist. Pharynx: Oropharynx is clear. No oropharyngeal exudate or posterior oropharyngeal erythema. Eyes: General: No scleral icterus. Extraocular Movements: Extraocular movements intact. Conjunctiva/sclera: Conjunctivae normal. Pupils: Pupils are equal, round, and reactive to light. Cardiovascular: Rate and Rhythm: Normal rate and regular rhythm. Heart sounds: Normal heart sounds. No murmur heard. Pulmonary: Effort: Pulmonary effort is normal. No respiratory distress. Breath sounds: Normal breath sounds. No wheezing, rhonchi or rales. Chest: Chest wall: No tenderness. Breasts: Right: Swelling present. No mass. Left: Normal. No swelling or mass. Abdominal: General: Abdomen is flat. There is no distension. Palpations: Abdomen is soft. Tenderness: There is no abdominal tenderness. Musculoskeletal: General: No swelling or tenderness. Normal range of motion. Cervical back: Normal range of motion and neck supple. No tenderness. Right lower leg: No edema. Left lower leg: No edema. Lymphadenopathy: Cervical: No cervical adenopathy. Upper Body: Right upper body: No axillary adenopathy. Left upper body: No axillary adenopathy. Skin: General: Skin is warm and dry. Coloration: Skin is not jaundiced or pale. Findings: No bruising, lesion or rash. Neurological: General: No focal deficit present. Mental Status: She is alert and oriented to person, place, and time. Motor: No weakness. Gait: Gait normal. Psychiatric: Mood and Affect: Mood normal. Behavior: Behavior normal. Thought Content: Thought content normal. Judgment: Judgment normal. Diagnostics: PROCEDURES: Diagnostic mammogram with digital tomosynthesis (DBT) of the left breast ? IMPRESSION: FINAL IMPRESSION: ACR BI-RADS 2: Benign findings. ?? with pattern 3 or 4 breast tissue. ?? Specimen Collected: 02/24/23 15:01 EDT Labs: Admission on 11/25/2022, Discharged on 11/25/2022 Component Date Value ??? Color, UA 11/25/2022 Yellow ??? Clarity, UA 11/25/2022 Turbid (A) ??? Specific [place], UA 11/25/2022 1.011 ??? pH, UA 11/25/2022 5.5 (L) ??? Leukocytes, UA 11/25/2022 500 Severino/uL (A) ??? Nitrite, UA 11/25/2022 Negative ??? Protein, UA 11/25/2022 1+ (A) ??? Glucose, UA 11/25/2022 Normal ??? Ketones, UA 11/25/2022 Negative ??? Bilirubin, UA 11/25/2022 Negative ??? Blood, UA 11/25/2022 3+ (A) ??? Urobilinogen, UA 11/25/2022 Normal ??? Specimen Source 11/25/2022 Urine, Clean Catch ??? WBC, UA 11/25/2022 Too Numerous To Count (A) ??? RBC, UA 11/25/2022 Too Numerous To Count (A) ??? Bacteria, UA 11/25/2022 1+ (A) ??? SQUAMOUS EPITHELIAL 11/25/2022 21-50 (A) ??? Non Squamous Epithelial * 11/25/2022 Present ??? WBC Clumps 11/25/2022 Present (A) ? ? Result 11/25/2022 >100,000 CFU Escherichia coli (A) Assessment/Plan: 72 YO with Stage 1 left breast cancer. She is now s/p lumpectomy and partial breast radiation. She has started taking anastrozole and is taking calcium and vitamin D. Tolerating all without difficulty. Baseline DEXA nearly identical to prior DEXA in 2018 with slight improvement in hip density. Mammogram in February 2023 was benign. Bilateral due in 6 months. Thank you for allowing me to participate in the care of this patient. Please call with any additional questions or concerns that may arise. Electronically signed by CELE GRANT PA-C - 03/11/2023 - 2:55 PM EDT documented in this encounter Plan of Treatment Upcoming Encounters Date Type Department Care Team (Late st Contact Info) Description 01/15/2025 2:45 PM EDT Office Visit [facility] - [place] [address] [place] [address] [place] [address] [place] [address] [address] [place] [address] 09/19/2025 2:30 PM EST Appointment [facility] [address] [place] [address] documented as of this encounter Visit Diagnoses Diagnosis Malignant neoplasm of lower-inner quadrant of left breast in female, estrogen receptor positive (HCC)- Primary Asymptomatic menopausal state documented in this encounter Care Teams Consultative Sales Associate Relationship Specialty Start Date End Date Komal Méndez APRN PCP - General Primary Care 09/07/22 01/03/24 Steven Marcelo MD [address] [facility] [address] [place] [address] Surgeon General Surgery 09/07/22 Jayla Ontiveros MD [address] [facility] [address] [place] [address] Medical Oncologist Hematology and Oncology 09/07/22 Modesta Valadez, RN Nurse Navigator 03/03/23 03/20/24 documented as of this encounter
--- OUTSIDE RECORDS SUMMARY | 2024-10-05 17:15 | XMS_ITS | Encounter Summary ---
Author Organization [employer] Address [address] [place] [address] Care Team Providers Care Cook At School Name Role Phone Komal Méndez APRN Primary Care Provider + [phone] Steven Marcelo MD Unavailable [phone] Jayla Ontiveros MD Unavailable [phone] Modesta Valadez RN Unavailable Unavailable Encounter Details Date Type Department Care Team (Latest Contact Info) Description 07/07/2023 Travel Social History Tobacco Use Types Packs/Day [...] suspected to have Coronavirus/COVID-19? No / Unsure 07/07/2023 3:15 PM EDT documented as of this encounter Plan of Treatment Upcoming Encounters Date Type Department Care Team (Late st Contact Info) Description 01/15/2025 2:45 PM EDT Office Visit [facility] - [place] [address] [place] [address] Jayla Ontiveros MD [address] [facility] [address] [place] [address] 09/19/2025 2:30 PM EST Appointment [facility] [address] [facility] [address] [place] [address] documented as of this encounter Visit Diagnoses Not on filedocumented in this encounter Care Teams Cook At [employer] Relationship Specialty Start Date End Date Komal Méndez APRN PCP - General Primary Care 09/07/22 01/03/24 Steven Marcelo MD [address] [facility] [address] [place] [address] Surgeon General Surgery 09/07/22 Jayla Ontiveros MD [address] [facility] [address] [place] [address] Medical Oncologist Hematology and Oncology 09/07/22 Rory, Modesta Walsh, RN Nurse Navigator 03/03/23 03/20/24 documented as of this encounter
--- OUTSIDE RECORDS SUMMARY | 2024-10-05 17:15 | XMS_ITS | Encounter Summary ---
Author Organization [employer] Address [address] [place] [address] Care Team Providers Care Ribbon Lap Machine Tender Name Role Phone Komal Méndez APRN Primary Care Provider + [phone] Steven Marcelo MD Unavailable [phone] Jayla Ontiveros MD Unavailable [phone] Encounter Details Date Type Department Care Team (Latest Contact Info) Description 11/25/2022 Travel Social History Tobacco Use Types Packs/Day [...] suspected to have Coronavirus/COVID-19? No / Unsure 11/25/2022 6:50 AM EST documented as of this encounter Plan of Treatment Upcoming Encounters Date Type Department Care Team (Late st Contact Info) Description 01/15/2025 2:45 PM EDT Office Visit [facility] - [place] [address] [place] [address] Jayla Ontiveros MD [address] [place] [address] 09/19/2025 2:30 PM EST Appointment [facility] [address] [facility] [address] [place] [address] documented as of this encounter Visit Diagnoses Not on filedocumented in this encounter Care Teams Ribbon Lap Machine Tender Relationship Specialty Start Date End Date Komal Méndez, CORPORATE STATISTICAL FINANCIAL ANALYST PCP - General Primary Care 09/07/22 01/03/24 Steven Marcelo MD [address] [facility] [address] [place] [address] Surgeon General Surgery 09/07/22 Jayla Ontiveros MD [address] [place] [address] Medical Oncologist Hematology and Oncology 09/07/22 documented as of this encounter
--- OUTSIDE RECORDS SUMMARY | 2024-10-05 17:15 | XMS_ITS | Encounter Summary ---
Author Organization [employer] Address [address] [place] [address] Care Team Providers Care Clerk General Office Name Role Phone [place] Komal Nick ROSS Primary Care Provider + [phone] Steven Marcelo MD Unavailable [phone] Jayla Ontiveros MD Unavailable [phone] Modesta Valadez RN Unavailable Unavailable Encounter Details Date Type Department Care Team (Latest Contact Info) Description 01/03/2024 Travel Social History Tobacco Use Types Packs/Day [...] Date Martinez rded Speak language other than [place] at home Not on file 11/16/2023 Want [...] Description 01/15/2025 2:45 PM EDT Office Visit [facility] - [facility] [place] [address] Jayla Ontiveros MD [facility] [address] [place] [address] 09/19/2025 2:30 PM EST Appointment [facility] [address] [place] [address] documented as of this encounter Visit Diagnoses Not on filedocumented in this encounter Care Teams Clerk General Office Relationship Specialty Start Date End Date Komal Méndez, CODY PCP - General Primary Care 09/07/22 01/03/24 Steven Marcelo MD [address] [facility] [address] [place] [address] Surgeon General Surgery 09/07/22 Jayla Ontiveros MD [address] [place], [place] [address] Medical Oncologist Hematology and Oncology 09/07/22 Rory, Modesta Walsh RN Nurse Navigator 03/03/23 03/20/24 documented as of this encounter
--- OUTSIDE RECORDS SUMMARY | 2024-10-05 17:15 | XMS_ITS | Encounter Summary ---
Author Organization [employer] Address [address] [place] [address] Care Team Providers Care Tape Sewing Machine Operator Name Role Phone Komal Méndez APRN Primary Care Provider + [phone] Steven Marcelo MD Unavailable [phone] Jayla Ontiveros MD Unavailable [phone] Reason for Visit * Reason Onset Date Comments Missed Call 11/30/2022 Encounter Details Date Type Department Care Team (Late st Contact Info) Description 11/30/2022 Telephone [facility] [address] [facility] [address] [place] [address] Komal Méndez APRN [address] [facility] [address] [place] [address] Missed Call Social History Tobacco Use Types Packs/Day Years [...] AM EST documented as of this encounter Miscellaneous Notes * Telephone Encounter - Shauna Guzman - 11/30/2022 10:49 AM EST Patient had received a call about her bone density testing. Test results where relayed to patient, patient understood. ECTIONAL SUPPLY SUPERVISOR documented in this encounter Plan of Treatment Upcoming Encounters Date Type Department Care Team (Late st Contact Info) Description 01/15/2025 2:45 PM EDT Office Visit [facility] - [place] [address] [place] [address] Jayla Ontiveros MD [address] [place] [address] [address] [place], [place] [id number] 09/19/2025 2:30 PM EST Appointment [facility] [address] [facility] [address] [place] [address] documented as of this encounter Visit Diagnoses Not on filedocumented in this encounter Care Teams Tape Sewing Machine Operator Relationship Specialty Start Date End Date Komal Méndez APRN PCP - General Primary Care 09/07/22 01/03/24 Steven Marcelo MD [address] [facility] [address] [place] [address] Surgeon General Surgery 09/07/22 Jayla Ontiveros MD [facility] [facility] [address] [place], [place] [id number] Medical Oncologist Hematology and Oncology 09/07/22 documented as of this encounter
--- OUTSIDE RECORDS SUMMARY | 2024-10-05 17:15 | XMS_ITS | Encounter Summary ---
Author Organization [employer] Address [address] [place] [address] Care Team Providers Care Production Controller Name Role Phone Komal Méndez Nick ROSS Primary Care Provider + [phone] Steven Marcelo MD Unavailable [phone] Jayla Ontiveros MD Unavailable [phone] Reason for Referral * Mammography (Routine) - Closed Specialty Diagnoses / Procedures Referred By Jaswinder kan Referred To Contact Diagnoses Malignant neoplasm of lower-inner quadrant of left breast in female, estrogen receptor positive (HCC) Procedures MM digital mammo diagnostic with jose alberto left Steven Marcelo MD [address] [place] [phone] Phone: tel: fax: Referral ID Status Reason Start Date Expiration Date Visits Re quested Visits Authorized [id number] Closed 02/24/2023 08/23/2023 1 1 Reason for Visit * Mammography (Routine) - Closed Specialty Diagnoses / Procedures Referred By Jaswinder kan Referred To Contact Diagnoses Malignant neoplasm of lower-inner quadrant of left breast in female, estrogen receptor positive (HCC) Procedures MM digital mammo diagnostic with jose alberto left Steven Marcelo MD [address] [place] [phone] Phone: tel: fax: Referral ID Status Reason Start Date Expiration Date Visits Re quested Visits Authorized [id number] Closed 02/24/2023 08/23/2023 1 1 Encounter Details Date Type Department Care Team (Latest Contact Info) Description 02/24/2023 2:39 PM EDT - 02/24/2023 11:59 PM EDT Hospital Encounter [facility] [address] [place] [address] Steven Marcelo MD [address] [place] [address] Malignant neoplasm of lower-inner quadrant of left breast in female, estrogen receptor positive (HCC) Discharge Disposition: Home or Self Care [...] PM EDT documented as of this encounter Medications at Time of Discharge amLODIPine (NORVASC) 5 MG tabletIndications:M alignant neoplasm of lower-inner quadrant of left breast in female, estrogen receptor positive (HCC),Asymptomatic menopausal state Take 1 tablet (5 mg total) by mouth daily. 2 cholecalciferol (VITAMIN D3) 125 mcg (5,000 unit) capsule Take by mouth. Eliquis 5 MG tabletIndications:M alignant neoplasm of lower-inner quadrant of left breast in female, estrogen receptor positive (HCC),Asymptomatic menopausal state Take 1 tablet (5 mg total) by mouth 2 (two) times daily. 2 ferrous sulfate 325 (65 FE) MG EC tablet Take 1 tablet (325 mg total) by mouth 2 (two) times daily. 3 metoprolol succinate (TOPROL-XL) 25 MG 24 hr tabletIndications:M alignant neoplasm of lower-inner quadrant of left breast in female, estrogen receptor positive (HCC),Asymptomatic menopausal state Take 1 tablet (25 mg total) by mouth daily. 2 anastrozole (ARIMIDEX) 1 mg tabletIndications:M alignant neoplasm of lower-inner quadrant of left breast in female, estrogen receptor positive (HCC),Asymptomatic menopausal state Take 1 tablet (1 mg total) by mouth daily for 360 doses. 90 tablet 3 2 07/07/20 23 apixaban (ELIQUIS) 2.5 mg Tab tablet Take by mouth. 24 ciprofloxacin HCl (CIPRO) 500 MG tablet Take 1 tablet (500 mg total) by mouth in the morning. 3 03/11/20 23 diclofenac sodium-menthoL 1.5-10 % Cmpk Take by mouth. 0 23 sshw-FX-zwo-epa-FAD -NADH-be-mv 1.5 mg iron- 8.73 mg CpID iron 24 lisinopriL (PRINIVIL,ZESTRIL) 40 MG tabletIndications:M alignant neoplasm of lower-inner quadrant of left breast in female, estrogen receptor positive (HCC),Asymptomatic menopausal state Take by mouth. 02/05 24 omega-3s/dha/epa/fi sh oil/D3 (VITAMIN-D + OMEGA-3 ORAL) Vitamin D 02/15/20 24 ondansetron (ZOFRAN-ODT) 4 MG disintegrating tablet ondansetron 4 mg disintegrating tablet 07/07/20 23 oxyCODONE-acetamino phen (PERCOCET) 5-325 mg per tablet Take 1 tablet by mouth. 2 07/07/20 23 documented as of this encounter Plan of Treatment Upcoming Encounters Date Type Department Care Team (Late st Contact Info) Description 01/15/2025 2:45 PM EDT Office Visit [facility] [address] [place] [address] Jayla Ontiveros MD [address] [facility] [address] [place] [address] 09/19/2025 2:30 PM EST Appointment [facility] [address] [facility] [address] [place] [address] documented as of this encounter Procedures Procedure Name Priority Date/Time Associated Diagnosis Comments MM DIGITAL MAMMO DIAGNOSTIC WITH JOSE ALBERTO LEFT Routine 02/24/2023 2:58 PM EDT Malignant neoplasm of lower-inner quadrant of left breast in female, estrogen receptor positive (HCC) documented in this encounter Results * MM digital mammo diagnostic with jose alberto left (02/24/2023 2:58 PM EDT) Anatomical Region Laterality Modality Breast Left Mammography 02/24/2023 3:01 PM EDT Impressions 02/24/2023 3:10 PM EDT FINAL IMPRESSION: ACR BI-RADS 2: Benign findings. RECOMMENDATIONS: Bilateral diagnostic mammogram in 6 months. The results and recommendations were discussed with the patient on the day of the appointment. In addition, a written report in lay terms was given to the patient. Density notification was included for patients with pattern 3 or 4 breast tissue. At our facility, a [place] marker is positioned over a visible skin lesion and a linear marker is used to indicate a scar. A triangular marker is placed on a palpable finding. Narrative 02/24/2023 3:10 PM EDT PROCEDURES: Diagnostic mammogram with digital tomosynthesis (DBT) of the left breast REASON FOR EXAM: History of left breast cancer. The patient is status post lumpectomy in August 2022. This represents her first posttreatment exam. FAMILY HISTORY: There is no family history of breast cancer COMPARISON STUDIES: 07/[facility] FINDINGS: Today's mammogram consisted of mediolateral oblique and craniocaudad views of the left breast obtained in 2-D and DBT modes. The breast tissue has pattern b (scattered fibroglandular densities). New architectural distortion and increased density are visualized in the left lower inner quadrant. This represent changes from lumpectomy and radiation therapy. There is no evidence of a mass or suspicious calcifications. Vascular calcifications are present. Portions of the axillary tail and axilla are obscured by an indwelling pacemaker. Mammographic exam was reviewed with the benefit of computed aided detection. us Steven Marcelo MD IMG MAMMOGRAPHY ORDERABLES F inal Result documented in this encounter Visit Diagnoses Diagnosis Malignant neoplasm of lower-inner quadrant of left breast in female, estrogen receptor positive (HCC) documented in this encounter Care Teams Production Controller Relationship Specialty Start Date End Date Dev Komal E, AGRICULTURAL EQUIPMENT TEST ENGINEER PCP - General Primary Care 09/07/22 01/03/24 Steven Marcelo MD [address] [facility] [address] [place] [address] Surgeon General Surgery 09/07/22 Jayla Ontiveros MD [address] [facility] [address] [place] [address] Medical Oncologist Hematology and Oncology 09/07/22 documented as of this encounter
--- OUTSIDE RECORDS SUMMARY | 2024-10-05 17:15 | XMS_ITS | Encounter Summary ---
Author Organization [employer] Address [address] [place] [address] Care Team Providers Care Transit Bus Driver Name Role Phone Komal Méndez APRN Primary Care Provider [phone] Steven Marcelo MD Unavailable [phone] Jayla Ontiveros MD Unavailable [phone] Reason for Referral * CAT Scan (Routine) - Closed Specialty Diagnoses / Procedures Referred By Jaswinder kan Referred To Contact Radiology Diagnoses Right ear pain Pain of right mastoid Head and face pain Procedures CT brain without IV contrast Komal Méndez APRN [address] [facility] [address] [place] [address] Phone: tel: fax: [facility] [address] [place] [phone] Phone: tel: fax: Referral ID Status Reason Start Date Expiration Date Visits Re quested Visits Authorized [id number] Closed 12/31/2022 06/29/2023 1 1 Reason for Visit * CAT Scan (Routine) - Closed Specialty Diagnoses / Procedures Referred By Jaswinder kan Referred To Contact Radiology Diagnoses Right ear pain Pain of right mastoid Head and face pain Procedures CT brain without IV contrast Komal Méndez APRN [address] [place] [address] Phone: tel: fax: [facility] [address] [place] [address] Phone: tel: fax: Referral ID Status Reason Start Date Expiration Date Visits Re quested Visits Authorized [id number] Closed 12/31/2022 06/29/2023 1 1 Encounter Details Date Type Department Care Team (Late st Contact Info) Description 12/31/2022 12:33 PM EST - 12/31/2022 11:59 PM EST Hospital Encounter [facility] [address] [place] [address] Komal Méndez, THERMODYNAMICS TEACHER [address] [place] [address] Right ear pain; Pain of right mastoid; Head and face pain Discharge Disposition: Home or Self Care [...] by mouth 2 (two) times daily. 2 metoprolol succinate (TOPROL-XL) 25 MG 24 hr [...] % Cmpk Take by mouth. 0 23 pxjp-JT-zti-epa-FAD -NADH-be-mv 1.5 mg iron- 8.73 mg CpID [...] Description 01/15/2025 2:45 PM EDT Office Visit [facility] - [place] [address] [place] [address] Jayla Ontiveros MD [address] [facility] [address] [place] [address] 09/19/2025 2:30 PM EST Appointment [address] [place] [address] documented as of this encounter Procedures Procedure Name Priority Date/Time Associated Diagnosis Comments CT BRAIN WITHOUT IV CONTRAST Routine 12/31/2022 1:45 PM EST Right ear pain Pain of right mastoid Head and face pain documented in this encounter Results * CT brain without IV contrast (12/31/2022 1:45 PM EST) Anatomical Region Laterality Modality Brain, Head Computed Tomogra phy (CT) 12/31/2022 3:40 PM EST Impressions 12/31/2022 6:34 PM EST No acute intracranial process . CT TEMPORAL BONES ?? HISTORY: Right ear pain COMPARISON: None. TECHNIQUE: Multiple axial CT sections were performed through the temporal bones. Coronal reconstruction images were performed. This study was performed with techniques to keep radiation doses as low as reasonably achievable, (ALARA). Individualized dose reduction techniques using automated exposure control or adjustment of mA and/or kV according to the patient size were employed. FINDINGS: There is dental caries. There is mild ethmoid mucosal thickening. RIGHT TEMPORAL BONE: ??The mastoid air cells are normally pneumatized. The ossicles are unremarkable. The middle ear cavity is unremarkable. The internal and external auditory canals are unremarkable. LEFT TEMPORAL BONE: ??The mastoid air cells are normally pneumatized. The ossicles are unremarkable. The middle ear cavity is unremarkable. The internal and external auditory canals are unremarkable. IMPRESSION: No acute process. Images reviewed, interpreted, and dictated by Dr. Jaun Browne. Transcribed by Kristy Vazquez (R). Narrative 12/31/2022 6:[address] ? 12/31/2022 1:45 PM HISTORY: Right ear pain. COMPARISON: April 2021. TECHNIQUE: Multiple axial CT images were performed from the foramen magnum to the vertex. This study was performed with techniques to keep radiation doses as low as reasonably achievable, (ALARA). Individualized dose reduction techniques using automated exposure control or adjustment of mA and/or kV according to the patient size were employed. FINDINGS: The ventricles are ??normal in size . There is mild atrophy. There is ??no evidence of hemorrhage ??. ?? No masses are identified . ?? No extra-axial fluid is seen . ??The sinuses ??are normal . Procedure Note Jaun Browne MD - 12/31/[address] 12/31/2022 1:45 PM HISTORY: Right ear pain. COMPARISON: April 2021. TECHNIQUE: Multiple axial CT images were performed from the foramen magnum to the vertex. This study was performed with techniques to keep radiation doses as low as reasonably achievable, (ALARA). Individualized dose reduction techniques using automated exposure control or adjustment of mA and/or kV according to the patient size were employed. FINDINGS: The ventricles are normal in size . There is mild atrophy. There is no evidence of hemorrhage . No masses are identified . No extra-axial fluid is seen . The sinuses are normal . IMPRESSION: No acute intracranial process . CT TEMPORAL BONES HISTORY: Right ear pain COMPARISON: None. TECHNIQUE: Multiple axial CT sections were performed through the temporal bones. Coronal reconstruction images were performed. This study was performed with techniques to keep radiation doses as low as reasonably achievable, (ALARA). Individualized dose reduction techniques using automated exposure control or adjustment of mA and/or kV according to the patient size were employed. FINDINGS: There is dental caries. There is mild ethmoid mucosal thickening. RIGHT TEMPORAL BONE: The mastoid air cells are normally pneumatized. The ossicles are unremarkable. The middle ear cavity is unremarkable. The internal and external auditory canals are unremarkable. LEFT TEMPORAL BONE: The mastoid air cells are normally pneumatized. The ossicles are unremarkable. The middle ear cavity is unremarkable. The internal and external auditory canals are unremarkable. IMPRESSION: No acute process. Images reviewed, interpreted, and dictated by Dr. Jaun Browne. Transcribed by Kristy Vazquez (R). Komal Méndez THERMODYNAMICS TEACHER IMG CT ORDERABLES Final Resu lt documented in this encounter Visit Diagnoses Diagnosis Right ear pain Unspecified otalgia Pain of right mastoid Head and face pain documented in this encounter Care Teams Transit Bus Driver Relationship Specialty Start Date End Date Komal Méndez, THERMODYNAMICS TEACHER PCP - General Primary Care 09/07/22 01/03/24 Steven Marcelo MD [address] [facility] [address] [place] [address] Surgeon General Surgery 09/07/22 Jayla Ontiveros MD [facility] [address] [place] [address] Medical Oncologist Hematology and Oncology 09/07/22 documented as of this encounter
--- OUTSIDE RECORDS SUMMARY | 2024-10-05 17:15 | XMS_ITS | Encounter Summary ---
Author Organization [employer]atives Address [address] [place] [address] Care Team Providers Care Roll Grinder Name Role Phone Komal Méndez APRN Primary Care Provider + [phone] Steven Marcelo MD Unavailable [phone] Jayla Ontiveros MD Unavailable [phone] Reason for Visit * Reason Comments Breast Cancer FUP left breast Encounter Details Date Type Department Care Team (Latest Contact Info) Description 01/25/2023 3:30 PM EDT - 01/25/2023 11:59 PM EDT Hospital Encounter [facility] - [facility] [address] [place] [address] Praveena Abad MD [address] [facility] [address] [place] [address] Malignant neoplasm of lower-inner quadrant of left breast in female, estrogen receptor positive (HCC) (Primary Dx) Discharge Disposition: Home or Self Care Social [...] Sign Reading Time Taken Comments Blood Pressure 138/77 01/25/2023 3:59 PM EDT Pulse 60 01/25/2023 3:59 PM EDT Temperature 36.4 ??C (97.6 ??F) 01/25/2023 3:59 PM ED T Respiratory Rate 16 01/25/2023 3:59 PM EDT Oxygen Saturation 100% 01/25/2023 3:59 PM EDT RA Inhaled Oxygen Concentration - - Weight 62.1 kg (137 lb) 01/25/2023 3:59 PM EDT Height 170.2 cm (5' 7.01 ) 01/25/2023 3:59 PM ED T Body Mass Index 21.45 01/25/2023 3:59 PM EDT documented in this encounter Medications at Time of Discharge [...] % Cmpk Take by mouth. 0 23 dvnz-TB-sxf-epa-FAD -NADH-be-mv 1.5 mg iron- 8.73 mg CpID [...] 07/07/20 23 documented as of this encounter Progress Notes * Praveena Abad MD - 01/25/2023 3:30 PM EDT Images from the original note were not included. Radiation Oncology Follow Up Evaluation Patient Name: Sheron Carvajal : 1950 Date: 01/25/2023 Referring Physicians: Patient Care Team: Komal Méndez APRN as PCP - General (Primary Care) Steven Marcelo MD as Surgeon (General Surgery) Jayla Ontiveros MD as Medical Oncologist (Hematology and Oncology) Diagnosis: 1. Malignant neoplasm of lower-inner quadrant of left breast in female, estrogen receptor positive (HCC) Stage: Cancer Staging Malignant neoplasm of lower-inner quadrant of left breast in female, estrogen receptor positive (HCC) Staging form: Breast, AJCC 8th Edition - Pathologic stage from 08/17/2022: Stage IA (pT1a, pN0(sn), cM0, G1, ER+, NY+, HER2-) - Signed by Praveena Abad MD on 09/07/2022 - Clinical stage from 09/01/2022: Stage IA (cT1a, cN0(sn), cM0, G1, ER+, NY+, HER2-) - Signed by Jayla Ontiveros MD on 09/01/2022 Previous Radiation History: 3000 cGy in 5 fractions to the left partial breast Start date: 09/21/2022 End date: 09/27/2022 Cancer History: 07/07/2022: Bilateral mammogram demonstrates 4mm nodule to inner lower quadrant of left breast. 07/19/2022: US-guided biopsy of left breast mass, final pathology consistent with grade 1 invasive ductal carcinoma, ER/NY positive, HER-2/jared negative 08/17/2022: Left breast lumpectomy with sentinel lymph node biopsy, final pathology pT1aN0(sn) 09/21/2022 - 09/27/2022: Adjuvant left partial breast radiation 10/2022 - present: Adjuvant anastrozole History of Present Illness: Ms. Carvajal is a pleasant 72 y.o. year old female. She initially presented to medical attention with an abnormality in the left breast on screening mammogram in June 2022. She was taken for ultrasound- guided core needle biopsy on July 19, 2022 which returned consistent with a well differentiated ER/NY positive invasive ductal carcinoma. She saw Dr. Marcelo who offered breast conservation, however the patient expressed some reservations and concerns regarding radiation with her pacemaker and I was asked to meet with her preoperatively in order to assist in her decision making. I initially saw the patient in July 2022 at which point I counseled her that I suspected her pacemaker would not preclude her from receiving radiation given the favorable characteristics of her tumor which meant she would likely qualify for partial breast treatment. She went on to the operating room with Dr. Marcelo on August 17, 2022 for lumpectomy. Her final pathology demonstrated no findings concerning for high risk disease and she was treated with partial breast radiation as described above completing in September 2022. Since that time she has been on adjuvant anastrozole. She presents today for her first post treatment evaluation. Interval History: Overall, Ms. Carvajal is doing extremely well. She is tolerating her anastrozole without difficulty. She denies any problems related to her radiation with the exception of some ongoing slight breast tenderness. Specifically, she denies any hot flashes, joint pains, fatigue, breast swelling, breast shrinkage, or skin changes. Allergies: Allergies Allergen Reactions ??? Nsaids (Non-Steroidal Anti-Inflammatory Drug) Hives Single kidney---functioning at 50% ??? Valdecoxib Medications: Current Outpatient Medications: ??? amLODIPine (NORVASC) 5 MG tablet, Take 5 mg by mouth daily., Disp: , Rfl: ??? anastrozole (ARIMIDEX) 1 mg tablet, Take 1 tablet (1 mg total) by mouth daily for 360 doses., Disp: 90 tablet, Rfl: 3 ??? apixaban (Eliquis) 2.5 mg Tab tablet, Take by mouth., Disp: , Rfl: ??? cholecalciferol (VITAMIN D3) 125 mcg (5,000 unit) capsule, Take by mouth., Disp: , Rfl: ??? ciprofloxacin HCl (CIPRO) 500 MG tablet, Take 500 mg by mouth daily., Disp: , Rfl: ??? diclofenac sodium-menthoL 1.5-10 % Cmpk, Take by mouth., Disp: , Rfl: ??? Eliquis 5 MG tablet, Take 5 mg by mouth 2 (two) times daily., Disp: , Rfl: ??? juca-RR-nrc-hyv-UNY-ODAP-be-mv 1.5 mg iron- 8.73 mg CpID, iron, Disp: , Rfl: ??? lisinopriL (PRINIVIL,ZESTRIL) 40 MG tablet, Take by mouth., Disp: , Rfl: ??? metoprolol succinate (TOPROL-XL) 25 MG 24 hr tablet, Take 25 mg by mouth daily., Disp: , Rfl: ??? omega-3s/dha/epa/fish oil/D3 (VITAMIN-D + OMEGA-3 ORAL), Vitamin D, Disp: , Rfl: ??? ondansetron (ZOFRAN-ODT) 4 MG disintegrating tablet, ondansetron 4 mg disintegrating tablet, Disp: , Rfl: ??? oxyCODONE-acetaminophen (PERCOCET) 5-325 mg per tablet, Take 1 tablet by mouth., Disp: , Rfl: Labs: No new labs for review. Imaging: No new maging to review. Pathology: No new pathology for review. Performance Status: ECOG 0 Physical Exam: Physical Exam Constitutional: General: She is not in acute distress. Appearance: Normal appearance. HENT: Head: Normocephalic and atraumatic. Mouth/Throat: Mouth: Mucous membranes are moist. Eyes: General: No scleral icterus. Extraocular Movements: Extraocular movements intact. Conjunctiva/sclera: Conjunctivae normal. Pulmonary: Effort: Pulmonary effort is normal. No respiratory distress. Breath sounds: No wheezing. Chest: Breasts: Right: No swelling, bleeding, mass or tenderness. Left: Skin change and tenderness present. No swelling, bleeding or mass. Comments: Bruising from recent lumpectomy Musculoskeletal: General: No swelling. Normal range of motion. Right lower leg: No edema. Left lower leg: No edema. Lymphadenopathy: Cervical: No cervical adenopathy. Upper Body: Right upper body: No supraclavicular, axillary or pectoral adenopathy. Left upper body: No supraclavicular, axillary or pectoral adenopathy. Skin: General: Skin is warm. Coloration: Skin is not jaundiced. Neurological: General: No focal deficit present. Mental Status: She is alert. Psychiatric: Mood and Affect: Mood normal. Behavior: Behavior normal. Assessment: Ms. Carvajal is a pleasant 72 y.o. year old female. She has a recently diagnosed pT1aN0(sn), prognostic stage group IA well differentiated ER/NY positive invasive ductal carcinoma of the left breast. She is status post lumpectomy with sentinel lymph node biopsy and negative surgical margins. She received adjuvant partial breast radiation and is currently on anastrozole which she is tolerating well. Clinically, Ms. Carvajal is doing extremely well with no evidence of recurrent or progressive disease. She has recovered from her acute treatment side effects and to this point demonstrates no significant evidence of long-term toxicity. She is scheduled to see Dr. Marcelo next month with a mammogram. I will plan to see her back in around 7 months with her first bilateral mammogram. I did encourage her to discuss with her primary care physician about the area of erythema on her right superior chest. It does not appear to be a cutaneous malignancy, however it has been there for several years and has somewhat poorly demarcated borders. A total of 20 minutes was spent at today's visit reviewing patient records, in [id number] consultation with the patient, and in coordination and documentation of care. Plan of Care for Pain: Patient has no complaints of pain Electronically approved by PRAVEENA ABAD MD on 01/25/2023 at 3:48 PM EDT documented in this encounter Miscellaneous Notes * Addendum Note - Soila Ontiveros RN - 01/25/2023 3:30 PM EDTEncounter addended by: Soila Ontiveros RN on: 01/25/2023 4:01 PM Actions taken: Chief Complaint modified, Allergies reviewed, Vitals modified, Order Reconciliation Section accessed, Medication List reviewed, Home Medications modified, Medication taking status modified, Flowsheet accepted documented in this encounter Plan of Treatment Upcoming Encounters Date Type Department Care Team (Late st Contact Info) Description 01/15/2025 2:45 PM EDT Office Visit [facility] [address] [address] Jayla Ontiveros MD [address] [place] [address] [address] [place], [place] [id number] 09/19/2025 2:30 PM EST Appointment [facility] Breast [facility] [address] [facility] [address] [place] [address] documented as of this encounter Visit Diagnoses Diagnosis Malignant neoplasm of lower-inner quadrant of left breast in female, estrogen receptor positive (HCC)- Primary documented in this encounter Care Teams Roll Grinder Relationship Specialty Start Date End Date Komal Méndez APRN PCP - General Primary Care 09/07/22 01/03/24 Steven Marcelo MD [address] [facility] [address] [place] [address] Surgeon General Surgery 09/07/22 Jayla Ontiveros MD [facility] [address] [place] [id number] Medical Oncologist Hematology and Oncology 09/07/22 documented as of this encounter
--- OUTSIDE RECORDS SUMMARY | 2024-10-05 17:15 | XMS_ITS | Encounter Summary ---
Author Organization [employer] Address [address] [place] [address] Care Team Providers Care Professor Of Political Science Name Role Phone Komal Méndez PROSTHODONTIST/EDUCATOR Primary Care Provider + [phone] Steven Marcelo MD Unavailable [phone] Jayla Ontiveros MD Unavailable [phone] Modesta Valadez RN Unavailable Unavailable Reason for Visit * Mammography (Routine) - Closed Specialty Diagnoses / Procedures Referred By Jaswinder t Referred To Contact Diagnoses History of breast cancer Procedures MM digital mammo diagnostic with jose alberto bilateral MM digital mammo diagnostic bilateral Steven Marcelo MD [address] [place] [address] Phone: tel: fax: Referral ID Status Reason Start Date Expiration Date Visits Re quested Visits Authorized [id number] Closed 08/26/2023 02/22/2024 1 1 Encounter Details Date Type Department Care Team (Latest Contact Info) Description 09/01/2023 9:30 AM EDT - 09/01/2023 11:59 PM EDT Hospital Encounter [facility] Breast Care [address] [facility] [address] [place] [address] Steven Marcelo MD [address] [place] [address] History of breast cancer Discharge [...] (25 mg total) by mouth daily. 06/10/2022 anastrozole (ARIMIDEX) 1 mg tabletIndications :Malignant neoplasm of lower-inner quadrant of left breast in female, estrogen receptor positive (HCC),Asymptomati c menopausal state Take 1 tablet (1 mg total) by mouth daily for 360 doses. 90 tablet 3 07/07/2023 01/18/2024 apixaban (ELIQUIS) 2.5 mg Tab tablet Take by mouth. 01/03/2024 dkgo-MD-drp-epa-F FY-PCLH-rp-mv 1.5 mg iron- 8.73 mg CpID iron [...] Description 01/15/2025 2:45 PM EDT [facility] [address] [place] [phone] Jayla Ontiveros MD [address] [place] [address] 09/19/2025 2:30 PM EST Appointment [facility] Breast [facility] [address] [facility] [address] [place] [address] documented as of this encounter Procedures Procedure Name Priority Date/Time Associated Diagnosis Comments MM DIGITAL MAMMO DIAGNOSTIC WITH JOSE ALBERTO BILATERAL Routine 09/01/2023 2:52 PM EDT History of breast cancer documented in this encounter Results * MM digital mammo diagnostic with jose alberto bilateral (09/01/2023 2:52 PM EDT) Anatomical Region Laterality Modality Breast Bilateral Mammography 09/01/2023 3:20 PM EDT Impressions 09/01/2023 3:25 PM EDT FINAL IMPRESSION: Stable mammogram. No findings suspicious for malignancy. Bi-RADS: ACR BI-RADS 2: Benign findings. RECOMMENDATIONS: 12 month bilateral follow-up per lumpectomy protocol At our facility, a [place] marker is positioned over a visible skin lesion and a linear marker is The results and recommendations were discussed with the patient on the day of her appointment. In addition, a written report in lay terms was given to the patient. Patient information was entered into a reminder system with a target due date for the next mammogram. Narrative 09/01/2023 3:25 PM EDT PROCEDURE: Bilateral diagnostic mammogram with Digital Breast Tomosynthesis (DBT). REASON FOR EXAM: 72-year-old female post left lower inner quadrant lumpectomy in August 2022 FAMILY HISTORY: ??No family history of breast cancer COMPARISON STUDY: [facility] February 2023, August 2022, July 2022, June 2022 FINDINGS: Craniocaudal and mediolateral oblique images of both breasts were obtained in 2D and DBT modes. Synthesized views were reconstructed from DBT data. The breast tissue has pattern b (scattered fibroglandular densities). Surgical changes are stable. The patient's pacemaker battery is no longer visualized. There is no evidence of dominant mass, architectural distortion, or suspicious calcifications. ?? This examination was reviewed with the benefit of computer aided detection (CAD). us Steven Marcleo MD IMG MAMMOGRAPHY ORDERABLES F inal Result documented in this encounter Visit Diagnoses Diagnosis History of breast cancer Personal history of malignant neoplasm of breast documented in this encounter Care Teams Professor Of Political Science Relationship Specialty Start Date End Date Irene Méndezh Nick, PROSTHODONTIST/EDUCATOR PCP - General Primary Care 09/07/22 01/03/24 Steven Marcelo MD [address] [facility] [address] [place] [address] Surgeon General Surgery 09/07/22 Jayla Ontiveros MD [address] [facility] [address] [place] [address] Medical Oncologist Hematology and Oncology 09/07/22 Modesta Valadez RN Nurse Navigator 03/03/23 03/20/24 documented as of this encounter
--- OUTSIDE RECORDS SUMMARY | 2024-10-05 17:15 | XMS_ITS | Encounter Summary ---
Author Organization [employer] Address [address] [place] [address] Care Team Providers Care Correctional Manager Name Role Phone Komal Méndez APRN Primary Care Provider + [phone] Steven Marcelo MD Unavailable [phone] Jayla Ontiveros MD Unavailable [phone] Modesta Valadez RN Unavailable Unavailable Reason for Visit * Reason Comments Follow-up 6m f/u appt Malignant neoplasm of lower-inner quadra nt of left breast i Encounter Details Date Type Department Care Team (Late st Contact Info) Description 01/03/2024 2:30 PM EST Office Visit [facility] - [facility] [address] [place] [phone] Jayla Ontiveros MD [address] [place] [address] Cele Feliz PA-C [address] [place] [address] Estefanía Kaye PA-C [address] [place] [address] History of breast cancer (Primary Dx); Malignant neoplasm of lower-inner quadrant of left breast in female, estrogen receptor positive (HCC); Asymptomatic menopausal state Social History Tobacco Use [...] Date Martinez rded Speak language other than Uzbek at home Not on file 11/16/2023 Want [...] Sign Reading Time Taken Comments Blood Pressure 138/70 01/03/2024 2:43 PM EST Pulse 60 01/03/2024 2:43 PM EST Temperature 36.2 ??C (97.2 ??F) 01/03/2024 2:43 PM ES T Respiratory Rate 14 01/03/2024 2:43 PM EST Oxygen Saturation 98% 01/03/2024 2:43 PM EST Inhaled Oxygen Concentration - - Weight 57.6 kg (127 lb) 01/03/2024 2:43 PM EST Height 170.2 cm (5' 7.01 ) 01/03/2024 2:43 PM ES T Body Mass Index 19.89 01/03/2024 2:43 PM EST documented in this encounter Progress Notes * Estefanía Kaye PA-C - 01/03/2024 2:30 PM EST [facility] Note Cancer History: 1. Presented 07/07/2022 with abnormal mammogram, subcentimeter nodule in left lower inner quadrant. 2. Biopsy with G1 IDC, ER/CA+, Her2-. 3. Lumpectomy, pT1aN0, negative margins. 4. Left partial breast radiation x 5 fractions 09/21/2022-09/27/2022. 5. Adjuvant anastrozole 08/2022 - current. Chief Complaint Patient presents with ??? Follow-up 6m f/u appt ??? Malignant neoplasm of lower-inner quadrant of left breast i History of Present Illness: Sheron is a 73 y.o. female returns for follow up of breast cancer on anastrozole. Tolerating it well, denies any SE. No new health interval events. No breast complaints. Denies any headaches, nausea, weight loss, bone pain, fever. No other complaints at this time. ECOG 0, full ADLs. Past Medical History: Diagnosis Date ??? Anemia ??? Atrial fibrillation (HCC) ??? Chronic kidney disease ??? H/O tubal ligation 1983 ??? Heart disease ??? Hypertension Past Surgical History: Procedure Laterality Date ??? BREAST BIOPSY ??? BREAST LUMPECTOMY Left 2021 ??? LUMPECTOMY,SENTINAL NODE Left 08/17/2022 Procedure: LUMPECTOMY, BREAST, WITH SENTINEL LYMPH NODE BIOPSY WITH NEEDLE LOC; Surgeon: Steven Marcelo MD; Location: [facility]; Service: General Surgery; Laterality: Left; ??? pace [...] tablet (325 mg total) before bedtime. ??? xrxn-IC-mwm-jhl-WOS-IHLX-be-mv 1.5 mg iron- 8.73 mg CpID iron ??? lisinopriL (PRINIVIL,ZESTRIL) 40 MG tablet Take by mouth. ??? metoprolol succinate (TOPROL-XL) 25 MG 24 hr tablet Take 1 tablet (25 mg total) by mouth in themorning. ??? omega-3s/dha/epa/fish oil/D3 (VITAMIN-D + OMEGA-3 ORAL) Vitamin D Current Facility-Administered Medications Medication Dose Route Frequency Provider Last Rate Last Admin ??? lidocaine (PF) injection 10 mg/mL (1%) 1 mL Intra-articular Once Reji Moore PA-C Review of Systems: 10 systems reviewed and negative except as noted per HPI. Vital Signs: BP 138/70 Pulse 60 Temp 97.2 ??F (36.2 ??C) Resp 14 Ht 1.702 m (5' 7.01 ) Wt57.6 kg (127 lb) SpO2 98% BMI 19.89 kg/m?? Body mass index is 19.89 kg/m??. Pain Score: 0-No pain Physical Exam Vitals and nursing note reviewed. Constitutional: General: She is not in acute distress. Appearance: Normal appearance. She is not ill-appearing or toxic-appearing. HENT: Head: Normocephalic and atraumatic. Nose: Nose normal. Eyes: Extraocular Movements: Extraocular movements intact. Conjunctiva/sclera: Conjunctivae normal. Pupils: Pupils are equal, round, and reactive to light. Cardiovascular: Rate and Rhythm: Normal rate and regular rhythm. Heart sounds: Normal heart sounds. Pulmonary: Effort: Pulmonary effort is normal. No respiratory distress. Breath sounds: Normal breath sounds. No wheezing, rhonchi or rales. Chest: Chest wall: No mass. Breasts: Right: No inverted nipple, mass, nipple discharge, skin change or tenderness. Left: No inverted nipple, mass, nipple discharge, skin change or tenderness. Comments: Well healed surgical incision to left breast s/p lumpectomy. Abdominal: General: There is no distension. Musculoskeletal: General: No swelling or deformity. Normal range of motion. Cervical back: Normal range of motion and neck supple. Right lower leg: No edema. Left lower leg: No edema. Lymphadenopathy: Cervical: No cervical adenopathy. Upper Body: Right upper body: No supraclavicular or axillary adenopathy. Left upper body: No supraclavicular or axillary adenopathy. Skin: General: Skin is warm and dry. Coloration: Skin is not jaundiced or pale. Findings: No rash. Neurological: General: No focal deficit present. Mental Status: She is alert and oriented to person, place, and time. Motor: No weakness. Gait: Gait normal. Psychiatric: Mood and Affect: Mood normal. Behavior: Behavior normal. Thought Content: Thought content normal. Judgment: Judgment normal. Assessment/Plan: 73 y.o. female here for follow up of early stage left breast cancer. - No evidence of cancer recurrence on exam today. Last mammogram 08/29 showed Bi-Rads 2: benign findings. Next scheduled 08/30. Encouraged to continue with self breast exams. - Excellent tolerance of anastrozole. We will continue for at least 5 years (tentatively 09/02). - Last DEXA scan done 11/29 with PCP showing osteopenia. Recommend to continue with calcium, vitaminD, and weight bearing exercises. Return to clinic in 6 months or sooner for new or worsening symptoms. Electronically signed by ESTEFANÍA KAYE PA-C - 01/03/2024 - 2:53 PM EST S ORDER AND STOCK CLERK documented in this encounter Plan of Treatment Upcoming Encounters Date Type Department Care Team (Late st Contact Info) Description 01/15/2025 2:45 PM EDT Office Visit [facility] [address] [place] [phone] Jayla Ontiveros MD [address] [facility] [address] [place] [address] 09/19/2025 2:30 PM EST Appointment [facility] Breast [facility] [address] [facility] [address] [place] [address] documented as of this encounter Visit Diagnoses Diagnosis History of breast cancer- Primary Personal history of malignant neoplasm of breast Malignant neoplasm of lower-inner quadrant of left breast in female, estrogen receptor positive (HCC) Asymptomatic menopausal state documented in this encounter Care Teams Correctional Manager Relationship Specialty Start Date End Date Komal Méndez, CODY PCP - General Primary Care 09/07/22 01/03/24 Steven Marcelo MD [address] [facility] [address] [place] [address] Surgeon General Surgery 09/07/22 Jayla Ontiveros MD [address] [facility] [address] [place] [address] Medical Oncologist Hematology and Oncology 09/07/22 Modesta Valadez, RN Nurse Navigator 03/03/23 03/20/24 documented as of this encounter
--- OUTSIDE RECORDS SUMMARY | 2024-10-05 17:15 | XMS_ITS | Encounter Summary ---
Author Organization [employer] Address [address] [place] [address] Care Team Providers Care Commercial Real Estate Lender Name Role Phone Komal Méndez APRN Primary Care Provider + [phone] Steven Marcelo MD Unavailable [phone] Jayla Ontiveros MD Unavailable [phone] Encounter Details Date Type Department Care Team (Late st Contact Info) Description 11/26/2022 Orders Only [facility] Breast Care [address] [facility] [address] [place] [address] Komal Méndez APRN [address] [place] [address] [address] [place] [address] Social History Tobacco Use Types Packs/Day Years [...] Description 01/15/2025 2:45 PM EDT Office Visit [facility] - [place] [address] [place] [address] Jayla Ontiveros MD [facility] [address] [place] [address] 09/19/2025 2:30 PM EST Appointment [facility] Breast Care [address] [facility] [address] [place] [address] documented as of this encounter Visit Diagnoses Not on filedocumented in this encounter Care Teams Commercial Real Estate Lender Relationship Specialty Start Date End Date Komal Méndez APRN PCP - General Primary Care 09/07/22 01/03/24 Steven Marcelo MD [address] [facility] [address] [place] [address] Surgeon General Surgery 09/07/22 Jayla Ontiveros MD [address] [place] [address] [address] [place] [address] Medical Oncologist Hematology and Oncology 09/07/22 documented as of this encounter
--- OUTSIDE RECORDS SUMMARY | 2024-10-05 17:15 | XMS_ITS | Encounter Summary ---
Author Organization [employer] Address [address] [place] [address] Care Team Providers Care Physician Industrial Name Role Phone Komal Méndez APRN Primary Care Provider + [phone] Steven Marcelo MD Unavailable [phone] Oumou Ontiveros MD Unavailable [phone] Modesta Valadez RN Unavailable Unavailable Reason for Visit * Reason Comments Follow-up 3 mth f/u Breast Cancer Encounter Details Date Type Department Care Team (Late st Contact Info) Description 07/07/2023 3:45 PM EDT Office Visit [facility] - [facility] [address] [place] [address] [address] [place] [address] Oumou Ontiveros MD [address] [facility] [address] [place] [address] Malignant neoplasm of lower-inner quadrant of left [...] Sign Reading Time Taken Comments Blood Pressure 139/73 07/07/2023 3:39 PM EDT Pulse 61 07/07/2023 3:39 PM EDT Temperature 36.7 ??C (98.1 ??F) 07/07/2023 3:39 PM ED T Respiratory Rate 16 07/07/2023 3:39 PM EDT Oxygen Saturation 99% 07/07/2023 3:39 PM EDT Inhaled Oxygen Concentration - - Weight 56.2 kg (124 lb) 07/07/2023 3:39 PM EDT Height 170.2 cm (5' 7.01 ) 07/07/2023 3:39 PM ED T Body Mass Index 19.42 07/07/2023 3:39 PM EDT documented in this encounter Progress Notes * Oumou Ontiveros MD - 07/07/2023 3:[address] [facility] On[facility] Clinic Note Cancer History: 1. Presented 07/07/2022 with abnormal mammogram, subcentimeter nodule in left lower inner quadrant. 2. Biopsy with G1 IDC, ER/CA+, Her2-. 3. Lumpectomy, pT1aN0, negative margins. 4. Left partial breast radiation x 5 fractions 09/21/2022-09/27/2022. 5. Adjuvant anastrozole 08/2022 - current. Chief Complaint Patient presents with ??? Follow-up 3 mth f/u ??? Breast Cancer History of Present Illness: Sheron is a 72 y.o. female returns for follow up of breast cancer on anastrozole. Fully compliant with anastrozole and no complaints. Denies hot flashes or arthralgias. No interval health events. ECOG 0. Past Medical History: Diagnosis Date ??? Anemia ??? Atrial fibrillation (HCC) ??? Chronic kidney disease ??? H/O tubal ligation 1983 ??? Heart disease ??? Hypertension Past Surgical History: Procedure Laterality Date ??? BREAST BIOPSY ??? BREAST LUMPECTOMY Left 2021 ??? LUMPECTOMY,SENTINAL NODE Left 08/17/2022 Procedure: LUMPECTOMY, BREAST, WITH SENTINEL LYMPH NODE BIOPSY WITH NEEDLE LOC; Surgeon: Steven Marcelo MD; Location: [facility]; Service: General Surgery; Laterality: Left; ??? pace maker 2018 Social History Tobacco Use ??? Smoking status: [...] tablet (325 mg total) before bedtime. ??? elkp-AR-slv-uwc-LOE-QMYD-be-mv 1.5 mg iron- 8.73 mg CpID iron [...] mg/mL (1%) 1 mL Intra-articular Once Reji Octavio Moore, PA-C Review of Systems: 10 systems reviewed and negative except as noted per HPI. Vital Signs: BP 139/73 Pulse 61 Temp 98.1 ??F (36.7 ??C) Resp 16 Ht 1.702 m (5' 7.01 ) Wt56.2 kg (124 lb) SpO2 99% BMI 19.42 kg/m?? Body mass index is 19.42 kg/m??. Pain Score: 0-No pain Physical Exam [...] Thought content normal. Judgment: Judgment normal. Assessment/Plan: 72 y.o. female here for follow up of early stage left breast cancer. -No evidence of cancer recurrence on exam today. -Excellent tolerance of anastrozole. We will continue for at least 5 years (tentatively 09/02). -Bilateral mammogram scheduled 08/29. -Will repeat DEXA fall 2023. Return to clinic in 6 months or sooner for new or worsening symptoms. Electronically signed by OUMOU ONTIVEROS MD - 07/08/2023 - 12:55 PM EDT documented in this encounter Plan of Treatment Upcoming Encounters Date Type Department Care Team (Late st Contact Info) Description 01/15/2025 2:45 PM EDT Office Visit [facility] - [place] [address] [facility] [address] [place] [address] Oumou Ontiveros MD [address] [facility] [address] [place] [address] 09/19/2025 2:30 PM EST Appointment [facility] Breast [facility] [address] [facility] [address] [place] [address] documented as of this encounter Visit Diagnoses Diagnosis Malignant neoplasm of lower-inner quadrant of left breast in female, estrogen receptor positive (HCC) Asymptomatic menopausal state documented in this encounter Care Teams Physician Industrial Relationship Specialty Start Date End Date Komal Méndez APRN PCP - General Primary Care 09/07/22 01/03/24 Steven Marcelo MD [address] [facility] [address] [place] [address] Surgeon General Surgery 09/07/22 Oumou Ontiveros MD [address] [facility] [address] [place] [address] Medical Oncologist Hematology and Oncology 09/07/22 Rory, Modesta Walsh, RN Nurse Navigator 03/03/23 03/20/24 documented as of this encounter
--- OUTSIDE RECORDS SUMMARY | 2024-10-05 17:15 | XMS_ITS | Encounter Summary ---
Author Organization [employer] Address [address] [place] [address] Care Team Providers Care Kick Press Operator Name Role Phone Komal Méndez APRN Primary Care Provider + [phone] Steven Marcelo MD Unavailable [phone] Jalya Ontiveros MD Unavailable [phone] Reason for Referral * DXA (Routine) - Closed Specialty Diagnoses / Procedures Referred By Contac t Referred To Contact Breast Care / Radiology Diagnoses Osteopenia after menopause Procedures DXA bone density spine and hip Komal Méndez APRN [address] [address] Phone: tel: fax: [address] [place] [address] Phone: tel: fax: Referral ID Status Reason Start Date Expiration Date Visits Re quested Visits Authorized [id number] Closed 10/10/2022 04/08/2023 1 1 Reason for Visit * DXA (Routine) - Closed Specialty Diagnoses / Procedures Referred By Contac t Referred To Contact Breast Care / Radiology Diagnoses Osteopenia after menopause Procedures DXA bone density spine and hip Komal Méndez APRN [address] [facility] [address] [place] [address] Phone: tel: fax: [facility] [address] [facility] [address] [place] [address] Phone: tel: fax: Referral ID Status Reason Start Date Expiration Date Visits Re quested Visits Authorized [id number] Closed 10/10/2022 04/08/2023 1 1 Encounter Details Date Type Department Care Team (Late st Contact Info) Description 11/29/2022 3:40 PM EST - 11/29/2022 11:59 PM EST Hospital Encounter [facility] [address] [facility] [address] [place] [address] Komal Méndez, POWER GENERATION PLANT OPERATOR [address] [facility] [address] [place] [address] Osteopenia after menopause Discharge Disposition: Home or Self Care Social [...] AM EST documented as of this encounter Medications at Time of Discharge amLODIPine (NORVASC) 5 MG tabletIndications:M alignant neoplasm of lower-inner quadrant of left breast in female, estrogen receptor positive (HCC),Asymptomatic menopausal state Take 1 tablet (5 mg total) by mouth daily. cholecalciferol (VITAMIN D3) 125 mcg (5,000 unit) [...] (25 mg total) by mouth daily. 2 cephalexin (KEFLEX) 500 MG capsule Take 1 capsule (500 mg total) by mouth 3 (three) times daily for 7 days. 21 capsule 3 12/02/19 23 fluticasone propionate (Allergy Relief, fluticasone,) 50 mcg/actuation nasal spray 1 spray by Nasal route daily for 30 days. 9.9 g 1 3 12/12/19 23 amoxicillin-clavula harry (AUGMENTIN) 875-125 mg per tablet Take 1 tablet by mouth 2 (two) times daily. 10 tablet 3 12/01/19 23 anastrozole (ARIMIDEX) 1 mg tabletIndications:M alignant neoplasm of lower-inner quadrant of left breast in female, estrogen receptor positive (HCC),Asymptomatic menopausal state Take 1 tablet (1 mg total) by mouth daily for 360 doses. 90 tablet 3 2 07/07/20 23 apixaban (ELIQUIS) 2.5 mg Tab tablet Take by mouth. 24 diclofenac sodium-menthoL 1.5-10 % Cmpk Take by mouth. 0 23 ntpg-WK-vcl-epa-FAD -NADH-be-mv 1.5 mg iron- 8.73 mg CpID iron 24 lisinopriL (PRINIVIL,ZESTRIL) 40 MG tabletIndications:M alignant neoplasm of lower-inner quadrant of left breast in female, estrogen receptor positive (HCC),Asymptomatic menopausal state Take by mouth. 02/05 24 lisinopril, bulk, 100 % Powd Take by mouth. 12/01/19 23 metoprolol succinate (TOPROL-XL) 100 MG 24 hr tablet Take by mouth. 12/01/19 23 metoprolol ta-hydrochlorothiaz (LOPRESSOR HCT) 100-25 mg per tablet Take by mouth. 12/01/19 23 omega-3s/dha/epa/fi sh oil/D3 (VITAMIN-D + OMEGA-3 ORAL) Vitamin D 02/15/20 24 ondansetron (ZOFRAN-ODT) 4 MG disintegrating tablet ondansetron 4 mg disintegrating tablet 07/07/20 oxyCODONE-acetamino phen (PERCOCET) 5-325 mg per tablet Take 1 tablet by mouth. 2 07/07/20 23 documented as of this encounter Miscellaneous Notes * Result Encounter Note - Komal Méndez APRN - 11/29/2022 4:00 PM EST Pt still has osteopenia in her back, her hip density is slightly improved. Cont. With calcium and Vit D , will repeat in 2 years. N WINDER * Result Encounter Note - Rocio Estrada CMA - 11/29/2022 4:00 PM EST Left message for patient to calll back and get results. N WINDER documented in this encounter Plan of Treatment Upcoming Encounters Date Type Department Care Team (Late st Contact Info) Description 01/15/2025 2:45 PM EDT Office Visit [facility] - [facility] [address] [place] [address] Jayla Ontiveros MD [address] [place] [address] 09/19/2025 2:30 PM EST Appointment [facility] [address] [facility] [address] [place] [address] documented as of this encounter Procedures Procedure Name Priority Date/Time Associated Diagnosis Comments DXA BONE DENSITY SPINE AND HIP Routine 11/29/2022 4:06 PM EST Osteopenia after menopause documented in this encounter Results * DXA bone density spine and hip (11/29/2022 4:06 PM EST) Anatomical Region Laterality Modality Bone Dual-energy X-ra y absorptiometry (DEXA) 11/29/2022 4:07 PM EST Narrative 11/29/2022 4:09 PM EST PROCEDURE: Bone densitometry (DXA). REASON FOR EXAM: Postmenopausal, screening for osteoporosis RISK FACTORS: Estrogen deficiency COMPARISON STUDY: [facility] 2015 FINDINGS: Bone densitometry was performed using a [employer] unit. Sites measured included the spine and left hip. Both sites appear to be valid. Using L1-4, ??the bone mineral density of the spine is 1.091g/cm2, compared to 1.081g/cm2 on the prior exam. This corresponds to a T-score of -0.8 ??on the present exam, compared to a T-score of -0.9 ??previously. Using the left femur, the bone mineral density of the hip is 0.815g/cm2, compared to 0.813g/cm2 on the prior exam. This corresponds to a T-score of ??-1.5 on the present exam, compared to a T-score of -1.5 previously. NOTE: ?T-score: standard deviation compared with peak bone mass of young adult mean. ? Z-score: standard deviation compared with age-matched mean. * Following the recommendations of the International Society of Bone Densitometry, classification of hip BMD is based upon the lower of two T-scores; ??total hip or femoral neck. ASSESSMENT: LOW BONE DENSITY/OSTEOPENIA: ??Lowest T-score is between -1.0 and -2.5. FRAX (WHO FRACTURE ASSESSMENT TOOL): ??10-year fracture risk for this patient is 1.0% at the hip and 8.2% for other sites. The National Osteoporosis Foundation Clinician's Guide, published in December 2007, suggests pharmacologic intervention when the risk of hip fracture reaches 3% (or 20% for ANY osteoporotic fracture). * FRAX can be assessed on the internet at www.shef.ac.uk/FRAX PREVENTION/FOLLOW-UP GUIDELINES: Ensure adequate Calcium and Vitamin D intake/supplementation. Encourage weight bearing exercise. RECOMMENDATION: Consider follow-up DEXA scan in 2 years. Left hip Procedure Note Romaine Rivas MD - 11/29/2022 PROCEDURE: Bone densitometry (DXA). REASON FOR EXAM: Postmenopausal, screening for osteoporosis RISK FACTORS: Estrogen deficiency COMPARISON STUDY: [facility] 2016 FINDINGS: Bone densitometry was performed using a [employer] unit. Sites measured included the spine and left hip. Both sites appear to be valid. Using L1-4, the bone mineral density of the spine is 1.091g/cm2, compared to 1.081g/cm2 on the prior exam. This corresponds to a T-score of -0.8 on the present exam, compared to a T-score of -0.9 previously. Using the left femur, the bone mineral density of the hip is 0.815g/cm2, compared to 0.813g/cm2 on the prior exam. This corresponds to a T-score of -1.5 on the present exam, compared to a T-score of -1.5 previously. NOTE: T-score: standard deviation compared with peak bone mass of young adult mean. Z-score: standard deviation compared with age-matched mean. * Following the recommendations of the International Society of Bone Densitometry, classification of hip BMD is based upon the lower of two T-scores; total hip or femoral neck. ASSESSMENT: LOW BONE DENSITY/OSTEOPENIA: Lowest T-score is between -1.0 and -2.5. FRAX (WHO FRACTURE ASSESSMENT TOOL): 10-year fracture risk for this patient is 1.0% at the hip and 8.2% for other sites. The National Osteoporosis Foundation Clinician's Guide, published in December 2007, suggests pharmacologic intervention when the risk of hip fracture reaches 3% (or 20% for ANY osteoporotic fracture). * FRAX can be assessed on the internet at www.shef.ac.uk/FRAX PREVENTION/FOLLOW-UP GUIDELINES: Ensure adequate Calcium and Vitamin D intake/supplementation. Encourage weight bearing exercise. RECOMMENDATION: Consider follow-up DEXA scan in 2 years. Left hip us Komal Méndez POWER GENERATION PLANT OPERATOR IMG DXA ORDERABLES Final Res ult documented in this encounter Visit Diagnoses Diagnosis Osteopenia after menopause documented in this encounter Care Teams Kick Press Operator Relationship Specialty Start Date End Date Komal Méndez, POWER GENERATION PLANT OPERATOR PCP - General Primary Care 09/07/22 01/03/24 Steven Marcelo MD [address] [facility] [address] [place] [address] Surgeon General Surgery 09/07/22 Jayla Ontiveros MD [address] [facility] [address] [place] [address] Medical Oncologist Hematology and Oncology 09/07/22 documented as of this encounter
--- OUTSIDE RECORDS SUMMARY | 2024-10-05 17:15 | XMS_ITS | Encounter Summary ---
Author Organization [employer] Address [address] [place] [address] Care Team Providers Care Forklift Truck Mechanic Name Role Phone Komal Méndez APRN Primary Care Provider + [phone] Steven Marcelo MD Unavailable [phone] Jayla Ontiveros MD Unavailable [phone] Reason for Referral * Diagnostic X-Ray (Routine) - Closed Specialty Diagnoses / Procedures Referred By Contac t Referred To Contact Orthopedic Surgery Diagnoses Localized osteoarthritis of left knee Procedures XR knee 1 or 2 views left Reji Moore PA-C [address] [place] [address] Phone: tel: fax: [facility] Orthopedics - [facility] [address] [place] [address] Phone: tel: fax: Referral ID Status Reason Start Date Expiration Date Visits Re quested Visits Authorized [id number] Closed 01/06/2023 07/05/2023 1 1 Reason for Visit * Diagnostic X-Ray (Routine) - Closed Specialty Diagnoses / Procedures Referred By Contac t Referred To Contact Orthopedic Surgery Diagnoses Localized osteoarthritis of left knee Procedures XR knee 1 or 2 views left Reji Moore PA-C [address] [place] [address] Phone: tel: fax: [facility] Orthopedics - [address] [place] [address] Phone: tel: fax: Referral ID Status Reason Start Date Expiration Date Visits Re quested Visits Authorized [id number] Closed 01/06/2023 07/05/2023 1 1 Encounter Details Date Type Department Care Team (Late st Contact Info) Description 01/06/2023 4:10 PM EST - 01/06/2023 11:59 PM EST Hospital Encounter [facility] Diagnostic Imaging - [address] [place] [address] Reji Moore PA-C [address] [place] [address] Localized osteoarthritis of left knee Discharge Disposition: Home or Self Care Social [...] % Cmpk Take by mouth. 0 23 xybw-XZ-lfy-epa-FAD -NADH-be-mv 1.5 mg iron- 8.73 mg CpID [...] Description 01/15/2025 2:45 PM EDT Office Visit [facility] [address] [facility] [address] [place] [address] Jayla Ontiveros MD [address] [place] [address] 09/19/2025 2:30 PM EST Appointment [address] [place] [address] documented as of this encounter Procedures Procedure Name Priority Date/Time Associated Diagnosis Comments XR KNEE 1 OR 2 VIEWS LEFT Routine 01/06/2023 4:20 PM EST Localized osteoarthritis of left knee documented in this encounter Results * XR knee 1 or 2 views left (01/06/2023 4:20 PM EST) Anatomical Region Laterality Modality Thigh, Knee, Leg X-Ray 01/06/2023 4:38 PM EST Impressions 01/06/2023 4:57 PM EST No acute osseous abnormality of the left knee. Images reviewed, interpreted, and dictated by Dr. Alberto Schwab. Transcribed by Modesta Brandon PA-C. Narrative 01/06/2023 4:57 PM EST LEFT KNEE SERIES INDICATION: Chronic left knee pain. COMPARISON: November 2020. FINDINGS: AP, oblique and lateral views of the left knee were obtained. There is no acute fracture. There is minimal osteophyte formation along the undersurface of the patella. Procedure Note Alberto Schwab MD - 01/06/2023 LEFT KNEE SERIES INDICATION: Chronic left knee pain. COMPARISON: November 2020. FINDINGS: AP, oblique and lateral views of the left knee were obtained. There is no acute fracture. There is minimal osteophyte formation along the undersurface of the patella. IMPRESSION: No acute osseous abnormality of the left knee. Images reviewed, interpreted, and dictated by Dr. Alberto Schwab. Transcribed by Modesta Brandon PA-C. Reji Moore PA-C IMG DIAGNOSTIC IMAGING ORDER YONATHAN Final Result documented in this encounter Visit Diagnoses Diagnosis Localized osteoarthritis of left knee documented in this encounter Care Teams Forklift Truck Mechanic Relationship Specialty Start Date End Date [place], Komal ECODY PCP - General Primary Care 09/07/22 01/03/24 Steven Marcelo MD [address] [place] [address] Surgeon General Surgery 09/07/22 Jayla Ontiveros MD [address] [facility] [address] [place] [address] Medical Oncologist Hematology and Oncology 09/07/22 documented as of this encounter
--- OUTSIDE RECORDS SUMMARY | 2024-10-05 17:15 | XMS_ITS | Encounter Summary ---
Author Organization [employer] Address [address] [place] [address] Care Team Providers Care Photographic Intelligence Officer Name Role Phone Komal Méndez APRN Primary Care Provider + [phone] Steven Marcelo MD Unavailable [phone] Jayla Ontiveros MD Unavailable [phone] Encounter Details Date Type Department Care Team (Latest Contact Info) Description 01/25/2023 Travel Social History Tobacco Use Types Packs/Day [...] Description 01/15/2025 2:45 PM EDT Office Visit [facility] - [address] [place] [address] Jayla Ontiveros MD [address] [place] [address] 09/19/2025 2:30 PM EST Appointment [facility] [address] [facility] [address] [place] [address] documented as of this encounter Visit Diagnoses Not on filedocumented in this encounter Care Teams Photographic Intelligence Officer Relationship Specialty Start Date End Date Komal Méndez, INSOLE STIFFENER PCP - General Primary Care 09/07/22 01/03/24 Steven Marcelo MD [address] [facility] [address] [place] [address] Surgeon General Surgery 09/07/22 Jayla Ontiveros MD [address] [facility] [address] [place] [address] Medical Oncologist Hematology and Oncology 09/07/22 documented as of this encounter
--- OUTSIDE RECORDS SUMMARY | 2024-10-05 17:15 | XMS_ITS | Encounter Summary ---
Author Organization [employer] [facility] Address [address] [place] [address] Care Team Providers Care Baccarat Dealer Name Role Phone Radha Swan APRN Primary Care Provider + [phone] Steven Marcelo MD Unavailable [phone] Jayla Ontiveros MD Unavailable [phone] Reason for Visit * Reason Comments referral Has red spots on [address]. Encounter Details Date Type Department Care Team (Late st Contact Info) Description 02/08/2023 3:30 PM EDT Office Visit [facility] Primary Care [address] [place] [address] Radha Swan APRN [address] [facility] [address] [place] [address] Pigmented skin lesion suspicious for malignant neoplasm (Primary Dx); Malignant neoplasm of lower-inner quadrant of left breast in female, estrogen receptor positive (HCC) Social History Tobacco Use Types Packs/Day Years [...] Sign Reading Time Taken Comments Blood Pressure 127/84 02/08/2023 3:47 PM EDT Pulse 58 02/08/2023 3:47 PM EDT Temperature 36.4 ??C (97.5 ??F) 02/08/2023 3:47 PM ED T Respiratory Rate - - Oxygen Saturation 98% 02/08/2023 3:47 PM EDT Inhaled Oxygen Concentration - - Weight 58.6 kg (129 lb 4 oz) 02/08/2023 3:47 PM EDT Height - - Body Mass Index 20.24 01/25/2023 3:59 PM EDT documented in this encounter Progress Notes * Radha Swan, ECONOMICS INSTRUCTOR - 02/08/2023 3:30 PM EDT Subjective: Patient ID: Sheron Carvajal is a 72 y.o. female. Chief Complaint: referral (Has red spots on chest.) History of Present Illness Patient comes in today to get a referral to see dermatology for a skin lesion on the right side of her chest. She states that it started about 5 years ago, was rough and pink and looked like eczema. Over time it has developed a distinct brown squiggly line around the periphery. It has not changed in size, occasionally it is itchy but does not hurt. She has a similar red, scaly type lesion on the left breast that came up within the last year, it looks like the first lesion did when it first developed. No family history of skin cancer, has never seen dermatology for any concerning lesions in the past. She has however had breast cancer and is still seeing oncology for that. Otherwise she is doing well, no complaints Review of Systems Constitutional: Negative. Negative for appetite change and fatigue. Eyes: Negative for visual disturbance. Respiratory: Negative for chest tightness and shortness of breath. Cardiovascular: Negative for chest pain. Gastrointestinal: Negative for abdominal pain and nausea. Endocrine: Negative for polydipsia, polyphagia and polyuria. Skin: Positive for color change. Skin lesion on the chest Neurological: Negative for syncope, weakness and numbness. Negative except HPI Past Medical History: Diagnosis Date ??? Anemia ??? Atrial fibrillation (HCC) ??? Chronic kidney disease ??? H/O tubal ligation 1983 ??? Heart disease ??? Hypertension Past Surgical Hx: has a past surgical history that includes pace maker (2019) and LUMPECTOMY,SENTINAL NODE (Left, 08/17/2022). Social Hx: reports that she has never smoked. She has never used smokeless tobacco. She reports that she does not currently use alcohol. She reports that she does not use drugs. Family Hx: family history is not on file. Allergies Allergen Reactions ??? Nsaids (Non-Steroidal Anti-Inflammatory Drug) Hives Single kidney---functioning at 50% ??? Valdecoxib Prior to Admission medications Medication Sig Start Date End Date Taking? Authorizing Provider amLODIPine (NORVASC) 5 MG tablet Take 1 tablet (5 mg total) by mouth in the morning. 08/11/22 Yes Historical Provider, anastrozole (ARIMIDEX) 1 mg tablet Take 1 tablet (1 mg total) by mouth daily for 360 doses. 09/01/22 08/27/23 Yes Jayla Ontiveros MD apixaban (ELIQUIS) 2.5 mg Tab tablet Take by mouth. Yes Historical Provider, cholecalciferol (VITAMIN D3) 125 mcg (5,000 unit) capsule Take by mouth. Yes Historical Provider, diclofenac sodium-menthoL 1.5-10 % Cmpk Take by mouth. Yes Historical Provider, Eliquis 5 MG tablet Take 1 tablet (5 mg total) by mouth in the morning and 1 tablet (5 mg total) before bedtime. 08/21/22 Yes Historical Provider, ferrous sulfate 325 (65 FE) MG EC tablet Take 1 tablet (325 mg total) by mouth in the morning and 1tablet (325 mg total) before bedtime. 01/31/23 Yes Historical Provider, qwgr-CB-lec-cid-IGB-MPNU-be-mv 1.5 mg iron- 8.73 mg CpID iron Yes Historical Provider, lisinopriL (PRINIVIL,ZESTRIL) 40 MG tablet Take by mouth. Yes Historical Provider, metoprolol succinate (TOPROL-XL) 25 MG 24 hr tablet Take 1 tablet (25 mg total) by mouth in the morning. 06/10/22 Yes Historical Provider, omega-3s/dha/epa/fish oil/D3 (VITAMIN-D + OMEGA-3 ORAL) Vitamin D Yes Historical Provider, ondansetron (ZOFRAN-ODT) 4 MG disintegrating tablet ondansetron 4 mg disintegrating tablet Yes Historical Provider, ciprofloxacin HCl (CIPRO) 500 MG tablet Take 1 tablet (500 mg total) by mouth in the morning. 11/30/22 Historical Provider, oxyCODONE-acetaminophen (PERCOCET) 5-325 mg per tablet Take 1 tablet by mouth. 08/17/22 Historical Provider, Objective: Vitals: BP 127/84 (BP Location: Left arm, Patient Position: Sitting, Cuff Size: Adult) Pulse 58 Temp 97.5 ??F (36.4 ??C) (Temporal Artery) Wt 58.6 kg (129 lb 4 oz) SpO2 98% BMI 20.24 kg/m?? Physical Exam Constitutional: General: She is not in acute distress. Appearance: Normal appearance. HENT: Head: Normocephalic. Eyes: Conjunctiva/sclera: Conjunctivae normal. Pupils: Pupils are equal, round, and reactive to light. Cardiovascular: Rate and Rhythm: Normal rate and regular rhythm. Pulses: Normal pulses. Heart sounds: Normal heart sounds. Pulmonary: Effort: Pulmonary effort is normal. Breath sounds: Normal breath sounds. Musculoskeletal: General: Normal range of motion. Skin: General: Skin is warm and dry. Comments: [place] scaly skin lesion on the right upper chest, three fourths of it surrounded by a squiggly dark brown linear discoloration. No breakdown of the skin, roughly quarter size. Similar type skin lesion on the left breast, dime size, oval shaped. [place] and scaly without any darkened peripheral discoloration. Neurological: General: No focal deficit present. Mental Status: She is alert and oriented to person, place, and time. Psychiatric: Mood and Affect: Mood normal. Behavior: Behavior normal. Thought Content: Thought content normal. Judgment: Judgment normal. Assessment: Encounter Diagnoses Name Primary? Pigmented skin lesion suspicious for malignant neoplasm Yes ??? Malignant neoplasm of lower-inner quadrant of left breast in female, estrogen receptor positive(HCC) Plan: Will refer to dermatology Associates, follow-up as needed Orders Placed This Encounter Procedures ??? Ambulatory referral to Dermatology Standing Status: Future Standing Expiration Date: 02/09/2024 Referral Priority: Routine Referral Type: Consultation Referral Reason: Specialty Services Required Requested Specialty: Dermatology Number of Visits Requested: 1 Orders Placed This Encounter Procedures ??? Ambulatory referral to Dermatology Standing Status: Future Standing Expiration Date: 02/09/2024 Referral Priority: Routine Referral Type: Consultation Referral Reason: Specialty Services Required Requested Specialty: Dermatology Number of Visits Requested: 1 No follow-ups on file. Requested Prescriptions No prescriptions requested or ordered in this encounter RADHA SWAN APRN 02/08/2023 documented in this encounter Plan of Treatment Upcoming Encounters Date Type Department Care Team (Late st Contact Info) Description 01/15/2025 2:45 PM EDT Office Visit [facility] [place] [address] [facility] [address] [place] [address] Jayla Ontiveros MD [address] [place] [address] [address] [place] [address] 09/19/2025 2:30 PM EST Appointment [facility] [address] [facility] [address] [place] [address] documented as of this encounter Visit Diagnoses Diagnosis Pigmented skin lesion suspicious for malignant neoplasm- Primary Malignant neoplasm of lower-inner quadrant of left breast in female, estrogen receptor positive (HCC) documented in this encounter Care Teams Baccarat Dealer Relationship Specialty Start Date End Date Radha Swan APRN PCP - General Primary Care 09/07/22 01/03/24 Steven Marcelo MD [address] [facility] [address] [place] [address] Surgeon General Surgery 09/07/22 Jayla Ontiveros MD [address] [place] [address] [address] [place], [place] [id number] Medical Oncologist Hematology and Oncology 09/07/22 documented as of this encounter
--- OUTSIDE RECORDS SUMMARY | 2024-10-05 17:15 | XMS_ITS | Encounter Summary ---
Author Organization [employer] [facility] Address [address] [place] [address] Care Team Providers Care Tilesetter Name Role Phone Radha Swan CODY Primary Care Provider [phone] Steven Marcelo MD Unavailable [phone] Jayla Ontiveros MD Unavailable [phone] Modesta Valadez RN Unavailable Unavailable Reason for Visit * Reason Comments Left shoulder pain Encounter Details Date Type Department Care Team (Late st Contact Info) Description 06/08/2023 2:30 PM EDT Procedure Visit [facility]opedics - [address] [place] [address] Reji Moore PA-C [address] [place] [address] Subacromial bursitis of left shoulder joint [...] Sign Reading Time Taken Comments Blood Pressure 119/80 06/08/2023 2:28 PM EDT Pulse 60 06/08/2023 2:28 PM EDT Temperature - - Respiratory Rate 18 06/08/2023 2:28 PM EDT Oxygen Saturation - - Inhaled Oxygen Concentration - - Weight 58.5 kg (129 lb) 06/08/2023 2:28 PM EDT Height 170.2 cm (5' 7 ) 06/08/2023 2:28 PM EDT Body Mass Index 20.2 06/08/2023 2:28 PM EDT documented in this encounter Progress Notes * Reji Moore PA-C - 06/08/2023 2:30 PM EDT NAME: Sheron Carvajal CSN: [id number] : 1950 PCP: RADHA SWAN APRN REASON FOR VISIT Left shoulder pain HPI Sheron Carvajal is a 72 y.o. female who presents today for a follow-up injection in her leftSubacromial bursa Patient's previous injection date: 12/23/2022 Previous injection lasted: 5 months Patient rates their pain today as 6 out of 10 Patient denies any new injuries or issues Patient would like to proceed with injection today as planned Patient verbalized consent for today's procedure and answered the following questions as listed below: Are you Diabetic: no Allergy to Iodine/Betadine/Shell fish: no Allergy to latex adhesive: no Allergy to steroids: no Recent Covid vaccine within the last two weeks: no Currently taking antibiotics: no Current infections or wounds: no Recent fractures or scheduled surgeries: yes, surgery for removal of basil sarcoma, 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 amLODIPine (NORVASC) 5 mg, Oral, Daily ??? anastrozole (ARIMIDEX) 1 mg, Oral, Daily ??? apixaban (ELIQUIS) 2.5 mg Tab tablet Oral ??? cholecalciferol (VITAMIN D3) 125 mcg (5,000 unit) capsule Oral ??? diclofenac sodium-menthoL 1.5-10 % Cmpk Oral ??? Eliquis 5 mg, Oral, 2 times daily ??? ferrous sulfate 325 (65 FE) MG EC tablet 1 tablet, Oral, 2 times daily ??? hxjt-XY-exl-dxy-FYD-GBDS-be-mv 1.5 mg iron- 8.73 mg CpID iron ??? lisinopriL (PRINIVIL,ZESTRIL) 40 MG tablet Oral ??? metoprolol succinate (TOPROL-XL) 25 mg, Oral, Daily ??? omega-3s/dha/epa/fish oil/D3 (VITAMIN-D + OMEGA-3 ORAL) Vitamin D ??? ondansetron (ZOFRAN-ODT) 4 MG disintegrating tablet ondansetron 4 mg disintegrating tablet ??? oxyCODONE-acetaminophen (PERCOCET) 5-325 mg per tablet 1 tablet, Oral ALLERGIES Allergies Allergen Reactions ??? Nsaids (Non-Steroidal [...] Surgeon: Steven Marcelo MD; Location: [facility]; Service: General Surgery; Laterality: Left; ??? [...] no fatigue, no mood swings. OBJECTIVE Vitals: 06/08/23 1428 BP: 119/80 Pulse: 60 Resp: 18 Weight: 58.5 kg (129 lb) Height: 1.702 m (5' 7 ) GEN: well-appearing, well-nourished NEURO: grossly NVI SKIN: warm, intact, no lesions, no erythema ASSESSMENT Problem List Items Addressed This Visit Musculoskeletal and Integument Subacromial bursitis of left shoulder joint - Primary Relevant Medications lidocaine (PF) injection 10 mg/mL (1%) (Completed) methylPREDNISolone acetate (DEPO-MEDROL) injection 80 mg (Completed) Other Relevant Orders Arthrocentsis aspiration/inj major jt/bursa w/o us PLAN 1. Follow-up PRN 2. Ice affected joint 3. Watch for signs of infection, return to clinic if symptoms appear 4. Return to clinic sooner if new symptoms occur as discussed or if symptoms worsen 5. Injection performed today, as noted below PROCEDURE Diabetes education: No Steroid Injection: Left Subacromial Bursa Injection: Indication: Left Subacromial pain Consent: The risks, benefits, and [...] was injected with 1cc of 1% lidocaine and 1cc of 80mg Depo-medrol Post-procedure: The patient tolerated the procedure well without complications. Post injection instructions were given and questions were answered to the best of my knowledge. Adverse effects: None. Injection was performed by: Reji Moore PA-C Scribanand Attestation: Andria Taylor RTR acted as a scribe and transcribed components of the current encounter under the direction of the Attending Provider. I have not been involved in providing any clinical treatments or patient care. Electronically Signed, KEO Sagastume Robert Coleman, PA-C attest that I have examined the above patient. I have dictated the exam, diagnosis, and plan to the scribe listed above to be transcribed into this document. I have supplemented the above documentation as warranted. I attest that I have reviewed the above documentation in its entirety and concur. Electronically Signed, Reji Moore PA-C 06/08/2023 2:21 PM Reynolda Enrrique: Casimiro GERARDO / DALLIN is undergoing an [...] Description 01/15/2025 2:45 PM EDT Office Visit [facility] [address] [place] [address] [address] [place] [address] Jayla Ontiveros MD [address] [facility] [address] [place] [address] 09/19/2025 2:30 PM EST Appointment [facility] [address] [facility] [address] [place] [address] Scheduled Orders Name Type Priority Associated Diagnoses Orde r Schedule Arthrocentsis aspiration/inj major jt/bursa w/o us Procedures Routine Subacromial bursitis of left shoulder joint Ordered: 06/08/2023 documented as of this encounter Visit Diagnoses Diagnosis Subacromial bursitis of left shoulder joint- Primary documented in this encounter Administered Medications Inactive Administered Medications - up to 3 most recent administrations Medication Order MAR Action Action Date Dose Rate Site lidocaine (PF) injection 10 mg/mL (1%) 1 mL Once, intra-articular, On Tue06/08/23 at 1530, For 1 doseIndications:Subacromial bursitis of left shoulder joint Given 06/08/2023 3:02 PM EDT 1 mL Left Shoulder methylPREDNISolone acetate (DEPO-MEDROL) injection 80 mg 80 mg Once, other - see admin instructions, On Tue06/08/23 at 1530, For 1 doseIndications:Subacromial bursitis of left shoulder joint Given 06/08/2023 3:02 PM EDT 80 mg documented in this encounter Care Teams Tilesetter Relationship Specialty Start Date End Date Radha Swan, CODY PCP - General Primary Care 09/07/22 01/03/24 Steven Marcelo MD [address] [address] Surgeon General Surgery 09/07/22 Jayla Ontiveros MD [address] [facility] [address] [place] [address] Medical Oncologist Hematology and Oncology 09/07/22 Modesta Valadez RN Nurse Navigator 03/03/23 03/20/24 documented as of this encounter
--- OUTSIDE RECORDS SUMMARY | 2024-10-05 17:15 | XMS_ITS | Encounter Summary ---
Author Organization [employer] Address [address] [place] [address] Care Team Providers Care Staking Engineer Name Role Phone Komal Méndez APRN Primary Care Provider [phone] Steven Marcelo MD Unavailable [phone] Jayla Ontiveros MD Unavailable [phone] Reason for Referral * CAT Scan (Routine) - Closed Specialty Diagnoses / Procedures Referred By Contac t Referred To Contact Radiology Diagnoses Right ear pain Pain of right mastoid Head and face pain Procedures CT temporal bones without IV contrast Komal Méndez APRN [address] [facility] [address] [place] [address] Phone: tel: fax: [facility] [address] [place] [phone] Phone: tel: fax: Referral ID Status Reason Start Date Expiration Date Visits Re quested Visits Authorized [id number] Closed 12/31/2022 06/29/2023 1 1 Reason for Visit * CAT Scan (Routine) - Closed Specialty Diagnoses / Procedures Referred By Contac t Referred To Contact Radiology Diagnoses Right ear pain Pain of right mastoid Head and face pain Procedures CT temporal bones without IV contrast Komal Méndez APRN [address] [facility] [address] [place] [address] Phone: tel: fax: [facility] [address] [place] [address] Phone: tel: fax: Referral ID Status Reason Start Date Expiration Date Visits Re quested Visits Authorized [id number] Closed 12/31/2022 06/29/2023 1 1 Encounter Details Date Type Department Care Team (Late st Contact Info) Description 12/31/2022 12:18 PM EST - 12/31/2022 12:32 PM EST Hospital Encounter [facility] [address] [place] [address] Komal Méndez, MESH CUTTER [address] [facility] [address] [place] [address] Right ear pain; Pain of [...] % Cmpk Take by mouth. 0 23 vehh-UM-crn-epa-FAD -NADH-be-mv 1.5 mg iron- 8.73 mg CpID [...] Description 01/15/2025 2:45 PM EDT Office Visit [facility] - [place] [address] [place] [id number] Jayla Ontiveros MD [address] [place] [address] 09/19/2025 2:30 PM EST Appointment [address] [place] [address] documented as of this encounter Procedures Procedure Name Priority Date/Time Associated Diagnosis Comments CT TEMPORAL BONES WITHOUT IV CONTRAST Routine 12/31/2022 1:46 PM EST Right ear pain Pain of right mastoid Head and face pain documented in this encounter Results * CT temporal bones without IV contrast (12/31/2022 1:46 PM EST) Anatomical Region Laterality Modality Computed Tomogra phy (CT) 12/31/2022 3:40 PM [...] Transcribed by Kristy Vazquez (R). Komal Méndez APRN IMG CT ORDERABLES Final Resu lt documented in this encounter Visit Diagnoses Diagnosis Right ear pain Unspecified otalgia Pain of right mastoid Head and face pain documented in this encounter Care Teams Staking Engineer Relationship Specialty Start Date End Date Komal Méndez, MESH CUTTER PCP - General Primary Care 09/07/22 01/03/24 Steven Marcelo MD [address] [facility] [address] [place] [address] Surgeon General Surgery 09/07/22 Jayla Ontiveros MD [address] [facility] [address] [place] [address] Medical Oncologist Hematology and Oncology 09/07/22 documented as of this encounter
--- OUTSIDE RECORDS SUMMARY | 2024-10-05 17:15 | XMS_ITS | Encounter Summary ---
Author Organization [employer] Address [address] [place] [address] Care Team Providers Care Mainframe Analyst Name Role Phone Komal Méndez Nick ROSS Primary Care Provider + [phone] Steven Marcelo MD Unavailable [phone] Jayla Ontiveros MD Unavailable [phone] Reason for Visit * Reason Comments Follow-up 3 mth f/u Dexa scan Encounter Details Date Type Department Care Team (Late st Contact Info) Description 12/01/2022 3:30 PM EST Office Visit [facility] [address] [facility] [place] [address] Cele Grant, EVER [address] [facility] [address] [place] [address] Malignant neoplasm of lower-inner quadrant of left breast in female, estrogen receptor positive (HCC) (Primary Dx) Social History Tobacco Use [...] AM EST documented as of this encounter Last Filed Vital Signs Vital Sign Reading Time Taken Comments Blood Pressure 120/72 12/01/2022 3:18 PM EST Pulse 78 12/01/2022 3:18 PM EST Temperature 36.3 ??C (97.3 ??F) 12/01/2022 3:18 PM ES T Respiratory Rate 14 12/01/2022 3:18 PM EST Oxygen Saturation 99% 12/01/2022 3:18 PM EST Inhaled Oxygen Concentration - - Weight 60.3 kg (133 lb) 12/01/2022 3:18 PM EST Height 170.2 cm (5' 7 ) 12/01/2022 3:18 PM EST Body Mass Index 20.83 12/01/2022 3:18 PM EST documented in this encounter Progress Notes * Cele Grant PA-C - 12/01/2022 3:30 PM EST [facility] Medical Oncology [facility], [address] [place] [address] Patient: Sheron Carvajal : 1950 Date: 12/01/2022 Diagnosis: 1. Malignant neoplasm of lower-inner quadrant of left breast in female, estrogen receptor positive (HCC) Cancer History: 1. 07/07/2022: Abnormal mammogram with subcentimeter nodule in left lower inner quadrant. 2. 07/19/2022: Left Breast Biopsy, invasive ductal carcinoma, grade 1, ER/IN+, Her2-. 3. 08/17/2022: Left Breast Lumpectomy, invasive ductal carcinoma, grade 1, 5mm in greatest dimension, DCIS present, margins uninvolved, Left Breast [place] Lymph Node, 1 negative lymph node. [id number] 4. Left partial breast radiation x 5 fractions 09/21/2022-09/27/2022. 5. Started anastrozole 08/2022, still taking Chief Complaint Patient presents with ??? Follow-up 3 mth f/u Dexa scan History of Present Illness: Sheron is a 71 y.o. female who presents for survivorship visit aftercompleting lumpectomy and radiation therapy for left breast cancer. She is now taking anastrozole, tolerating well. Denies any hot flashes or joint pain. Her skin is doing well after completing radiation. Past Medical History: Diagnosis Date ??? Anemia ??? Atrial fibrillation (HCC) ??? Chronic kidney disease ??? H/O tubal ligation 1983 ??? Heart disease ??? Hypertension Past Surgical History: Procedure Laterality Date ??? LUMPECTOMY,SENTINAL NODE Left 08/17/2022 Procedure: LUMPECTOMY, BREAST, WITH SENTINEL LYMPH NODE BIOPSY WITH NEEDLE LOC; Surgeon: Steven Marcelo MD; Location: [facility] OR; Service: General Surgery; Laterality: Left; ??? pace maker 2019 Social History Tobacco Use ??? Smoking status: Never Smoker ??? Smokeless tobacco: Never Used Vaping Use ??? Vaping Use: Never used Substance Use Topics ??? Alcohol use: Not Currently ??? Drug use: Never Family History: No history of malignancy Allergies Allergen Reactions ??? Nsaids (Non-Steroidal Anti-Inflammatory Drug) Hives Single kidney---functioning at 50% ??? Valdecoxib Current Outpatient Medications Medication Sig Dispense Refill ??? amLODIPine (NORVASC) 5 MG tablet Take 5 mg by mouth daily. ??? anastrozole (ARIMIDEX) 1 mg tablet Take 1 tablet (1 mg total) by mouth daily for 360 doses. 90 tablet 3 ??? apixaban (Eliquis) 2.5 mg Tab tablet Take by mouth. ??? cephalexin (KEFLEX) 500 MG capsule Take 1 capsule (500 mg total) by mouth 3 (three) times dailyfor 7 days. 21 capsule 0 ??? cholecalciferol (VITAMIN D3) 125 mcg (5,000 unit) capsule Take by mouth. ??? ciprofloxacin HCl (CIPRO) 500 MG tablet Take 500 mg by mouth daily. ??? diclofenac sodium-menthoL 1.5-10 % Cmpk Take by mouth. ??? Eliquis 5 MG tablet Take 5 mg by mouth 2 (two) times daily. ??? fluticasone propionate (Allergy Relief, fluticasone,) 50 mcg/actuation nasal spray 1 spray by Nasal route daily for 30 days. 9.9 g 1 ??? bwds-BD-oss-mdq-YDC-JUXU-be-mv 1.5 mg iron- 8.73 mg CpID iron ??? lisinopriL (PRINIVIL,ZESTRIL) 40 MG tablet Take by mouth. ??? metoprolol succinate (TOPROL-XL) 25 MG 24 hr tablet Take 25 mg by mouth daily. ??? omega-3s/dha/epa/fish oil/D3 (VITAMIN-D [...] difficulty urinating, flank pain, hematuria andurgency. Musculoskeletal: Negative for arthralgias, back pain and myalgias. Skin: Negative for rash and wound. Allergic/Immunologic: Negative for immunocompromised state. Neurological: Negative for dizziness, tremors, weakness, light-headedness, numbness and headaches. Hematological: Negative for adenopathy. Does not bruise/bleed easily. Psychiatric/Behavioral: Negative for confusion, dysphoric mood and sleep disturbance. The patient is not nervous/anxious. All other systems reviewed and are negative. Vital Signs: BP 120/72 (BP Location: Right arm, Patient Position: Sitting) Pulse 78 Temp 97.3 ??F (36.3 ??C) Resp 14 Ht 1.702 m (5' 7 ) Wt 60.3 kg (133 lb) SpO2 99% BMI 20.83 kg/m?? Body mass index is 20.83 kg/m??. Physical Exam Vitals and nursing note reviewed. Constitutional: General: She is not in acute distress. Appearance: She is not ill-appearing. HENT: Mouth/Throat: Pharynx: No oropharyngeal exudate or posterior oropharyngeal erythema. Eyes: General: No scleral icterus. Cardiovascular: Heart sounds: No murmur heard. Pulmonary: Effort: No respiratory distress. Breath sounds: No wheezing, rhonchi or rales. Chest: Chest wall: No tenderness. Abdominal: General: There is no distension. Tenderness: There is no abdominal tenderness. Musculoskeletal: General: No swelling or tenderness. Cervical back: No tenderness. Right lower leg: No edema. Left lower leg: No edema. Lymphadenopathy: Cervical: No cervical adenopathy. Skin: Coloration: Skin is not jaundiced or pale. Findings: No bruising, lesion or rash. Neurological: Motor: No weakness. Gait: Gait normal. Diagnostics: Radiology Results (last 7 days) Procedure Component Value Units Date/Time DXA bone density spine and hip [[id number]] Collected: 11/29/22 1607 Order Status: Completed Updated: 11/29/22 1611 Narrative: PROCEDURE: Bone densitometry (DXA). REASON FOR EXAM: Postmenopausal, screening for osteoporosis RISK FACTORS: Estrogen deficiency COMPARISON STUDY: [facility] 2016 FINDINGS: Bone densitometry was performed using a DataSift unit. Sites measured included the spine and [...] DEXA scan in 2 years. Left hip Labs: Admission on 11/25/2022, Discharged on 11/25/2022 Component Date Value ??? Color, UA 11/25/2022 Yellow ??? Clarity, UA 11/25/2022 Turbid (A) ??? Specific [place], UA 11/25/2022 1.011 ??? pH, UA 11/25/2022 5.5 (A) ??? Leukocytes, UA 11/25/2022 500 [place]/uL (A) [...] Result 11/25/2022 >100,000 CFU Escherichia coli (A) Office Visit on 10/08/2022 Component Date Value ??? TSH 10/08/2022 3.870 ??? T4,Free(Direct) 10/08/2022 0.94 ??? WBC 10/08/2022 4.0 ??? RBC 10/08/2022 4.23 ??? Hemoglobin 10/08/2022 12.7 ??? Hematocrit 10/08/2022 38.6 ??? MCV 10/08/2022 91 ??? MCH 10/08/2022 30.0 ??? MCHC 10/08/2022 32.9 ??? RDW 10/08/2022 12.1 ??? Platelets 10/08/2022 196 ??? % Neutros 10/08/2022 53 ??? % Lymphs 10/08/2022 32 ??? % Monos 10/08/2022 10 ??? % Eos 10/08/2022 3 ??? % Baso 10/08/2022 2 ??? # Neutros 10/08/2022 2.1 ??? # Lymphs 10/08/2022 1.3 ??? # Monos 10/08/2022 0.4 ??? # Eos 10/08/2022 0.1 ??? Baso (Absolute) 10/08/2022 0.1 ??? % Immature Grans 10/08/2022 0 ??? # Immature Grans 10/08/2022 0.0 ??? Glucose, Serum 10/08/2022 83 ??? BUN 10/08/2022 18 ??? Creatinine, Serum 10/08/2022 1.18 (A) ??? EGFR 10/08/2022 50 (A) ??? BUN/Creatinine Ratio 10/08/2022 15 ??? Sodium, Serum 10/08/2022 140 ??? Potassium, Serum 10/08/2022 4.1 ??? Chloride, Serum 10/08/2022 100 ??? Carbon Dioxide, Total 10/08/2022 24 ??? Calcium, Serum 10/08/2022 9.8 ??? Protein, Total, Serum 10/08/2022 7.1 ??? Albumin, Serum 10/08/2022 4.7 ??? Globulin, Total 10/08/2022 2.4 ??? A/G Ratio 10/08/2022 2.0 ??? Bilirubin, Total 10/08/2022 0.3 ??? Alkaline Phosphatase, S 10/08/2022 90 ??? AST (SGOT) 10/08/2022 18 ??? ALT (SGPT) 10/08/2022 11 ??? Cholesterol, Total 10/08/2022 196 ??? Triglycerides 10/08/2022 85 ??? HDL Cholesterol 10/08/2022 63 ??? VLDL Cholesterol Fran 10/08/2022 15 ??? LDL Calculated 10/08/2022 118 (A) Diagnosis: ICD-10-CM ICD-9-CM 1. Malignant neoplasm of lower-inner quadrant of left breast in female, estrogen receptor positive (HCC) C50.312 174.3 Z17.0 V86.0 Psychosocial Evaluation Psychosocial issues impacting cancer recovery including but not limited to those listed below were addressed at today???s appointment: X Anxiety or depression X Emotional and mental health X Fatigue X Weight changes X Physical functioning Interventions No referrals sent today Lifestyle and behavioral change to optimize overall health and minimize risk of other malignancies reviewed including: X Physical activity X Diet X Management of my medications X Management of my other illnesses Survivorship care plan reviewed with patient. Pertinent pathology, imaging, additional test resultsreviewed with the patient today. Early and late effects of prior therapy reviewed. Functional limitations, psychosocial issues, and any other barriers to care assessed today as well with interventions as indicated above. All questions about prior treatment, ongoing therapies, and follow up plan answered to the patient???s satisfaction. We discussed ongoing surveillance today with repeat imaging every at 6, 12, and 24 months and labs/visits every 3 months for the next 2 years. Assessment/Plan: 71 YO with Stage 1 left breast cancer. She is now s/p lumpectomy and partial breast radiation. She has started taking anastrozole and is taking calcium and vitamin D. Tolerating all without difficulty. Baseline DEXA nearly identical to prior DEXA in 2018 with slight improvement in hip density. Thank you for allowing me to participate in the care of this patient. Please call with any additional questions or concerns that may arise. Electronically signed by CELE GRANT PA-C - 12/01/2022 - 3:23 PM EST E PLANER OPERATOR documented in this encounter Plan of Treatment Upcoming Encounters Date Type Department Care Team (Late st Contact Info) Description 01/15/2025 2:45 PM EDT Office Visit [facility] - [address] [place] [id number] Jayla Ontiveros MD [address] [place] [address] [address] [place], [place] [id number] 09/19/2025 2:30 PM EST Appointment [facility] [address] [facility] [address] [place] [address] documented as of this encounter Visit Diagnoses Diagnosis Malignant neoplasm of lower-inner quadrant of left breast in female, estrogen receptor positive (HCC)- Primary documented in this encounter Care Teams Mainframe Analyst Relationship Specialty Start Date End Date Komal Méndez APRN PCP - General Primary Care 09/07/22 01/03/24 Steven Marcelo MD [address] [facility] [address] [place] [address] Surgeon General Surgery 09/07/22 Jayla Ontiveros MD [address] [place] [address] [address] [place] [address] Medical Oncologist Hematology and Oncology 09/07/22 documented as of this encounter
--- OUTSIDE RECORDS SUMMARY | 2024-10-05 17:15 | XMS_ITS | Encounter Summary ---
Author Organization [email or web address] Address [address] [place] [address] Care Team Providers Care Clinical Exercise Physiologist Name Role Phone Radha Swan APRN Primary Care Provider + [phone] Steven Marcelo MD Unavailable [phone] Jayla Ontiveros MD Unavailable [phone] Reason for Referral * Diagnostic X-Ray (Routine) - Closed Specialty Diagnoses / Procedures Referred By Contac t Referred To Contact Orthopedic Surgery Diagnoses Localized osteoarthritis of left knee Procedures XR knee 1 or 2 views left Reji Moore PA-C [address] [place] [address] Phone: tel: fax: [address] [address] Phone: tel: fax: Referral ID Status Reason Start Date Expiration Date Visits Re quested Visits Authorized [id number] Closed 01/06/2023 07/05/2023 1 1 Reason for Visit * Reason Comments Left knee pain Encounter Details Date Type Department Care Team (Late st Contact Info) Description 01/06/2023 3:45 PM EST Procedure Visit [facility] Orthopedic[address] [address] Reji Moore PA-C [address] [place] [phone] Localized osteoarthritis of left knee (Primary Dx) Social History Tobacco Use Types [...] - Temperature - - Respiratory Rate 18 01/06/2023 3:46 PM EST Oxygen Saturation - - Inhaled Oxygen Concentration - - Weight 59 kg (130 lb) 01/06/2023 3:46 PM EST Height 170.2 cm (5' 7 ) 01/06/2023 3:46 PM EST Body Mass Index 20.36 01/06/2023 3:46 PM EST documented in this encounter Progress Notes * Reji Moore PA-C - 01/06/2023 3:45 PM EST NAME: Sheron Carvajal CSN: [id number] : 1950 PCP: RADHA SWAN APRN REASON FOR VISIT Left knee pain HPI Sheron Carvajal is a 72 y.o. female who presents today for a follow-up on left Knee pain She has been treating her knee pain conservatively with our office Patient's previous injection date: 08/06/2021 Patient rates their pain today as 2 [...] surgeries: no CURRENT MEDICATIONS Current Outpatient Medications Medication Instructions ??? amLODIPine (NORVASC) 5 mg, Oral, Daily ??? anastrozole (ARIMIDEX) 1 mg, Oral, Daily ??? apixaban (Eliquis) 2.5 mg Tab tablet Oral ??? cholecalciferol (VITAMIN D3) 125 mcg (5,000 unit) capsule Oral ??? ciprofloxacin HCl (CIPRO) 500 mg, Oral, Daily ??? diclofenac sodium-menthoL 1.5-10 % Cmpk Oral ??? Eliquis 5 mg, Oral, 2 times daily ??? zfkb-OU-ikg-dea-GEN-EOKH-be-mv 1.5 mg iron- 8.73 mg CpID iron [...] NEEDLE LOC; Surgeon: Steven Marcelo MD; Location: [facility]; Service: General Surgery; Laterality: Left; ??? pace maker 2018 SOCIAL HISTORY Social History Tobacco Use ??? Smoking status: Never Smoker ??? Smokeless tobacco: Never Used Vaping Use ??? Vaping Use: Never used Substance Use Topics ??? Alcohol use: Not Currently ??? Drug use: Never FAMILY HISTORY History reviewed. No pertinent family history. REVIEW OF SYSTEMS General: No recent fever [...] no fatigue, no mood swings. OBJECTIVE Vitals: 01/06/23 1546 Resp: 18 Weight: 59 kg (130 lb) Height: 1.702 m (5' 7 ) [...] and Affect: Mood normal. Behavior: Behavior normal. Musculoskeletal System: Lumbar / Lumbosacral Spine: General/bilateral: ??? A straight-leg raising test of the left leg was positive. Knee: Left Knee: ??? Examined. ??? Patella demonstrated crepitus. ??? Posterior aspect was tender on palpation. ?? No swelling. ?? No erythema. ?? No warmth. ?? Knee was not dislocated. ?? Knee showed no deformity. ?? Patellofemoral region was not tender on palpation. ?? Medial collateral ligament was not tender on palpation. ?? Lateral collateral ligament was not tender on palpation. ?? No tenderness on palpation at the medial joint line. ?? No tenderness on palpation at the lateral joint line. ?? Patellar tendon was not tender on palpation. Left Knee: Knee Motion: Value Active flexion was normal 130 degrees Active extension was normal 0 degrees ?? No laxity of the medial collateral ligament. ?? No laxity of the lateral collateral ligament. ??No anterior drawer sign was present. ?? A Jesusita test was negative. Lower Leg: Left Leg: ??? Left lower leg was examined. ?? Calf was not tender on palpation. ?? Gavin's sign wasnot present. Foot: General/bilateral: ?? Posterior tibial pulse present left foot left. Neurological: ?? Oriented to time, place, and person. Strength: Value Weakness of the left quadriceps muscle 4 Skin: ?? Showed no ecchymosis, skin warm, pink, intact, no lesions. Injury / Incision Site: ?? Left knee showed no tissue injury. ASSESSMENT Problem List Items Addressed This Visit Musculoskeletal and Integument Localized osteoarthritis of left knee I discussed with patient in depth the options for treatment of osteoarthritis of the knee. Treatment options that include gentle, low-impact exercise, weight loss, physical therapy to promote quadriceps strengthening, the use of NSAIDs, intra-articular steroid injections, viscosupplementation, and genicular nerve blocks were all discussed. I also discussed that if all conservative measures fail to provide satisfactory relief of symptoms, we can discuss surgical options to include arthroplasty of the knee. PLAN 1. Follow-up in 3 months for repeat injection 2. Ice affected joint 3. Watch for signs of infection, return to clinic if symptoms appear 4. Return to clinic sooner if new symptoms occur as discussed or if symptoms worsen 5. Injection performed today, as noted below PROCEDURE Diabetes education: No Steroid Injection: Left Knee Injection: Indication: left Knee pain Consent: The risks, benefits, and alternatives [...] injected with 1cc of 1% lidocaine Lot# [id number] and 1cc of 80mg Depo-medrol Lot# [id number] Post-procedure: The patient tolerated the procedure well [...] and concur. Electronically Signed, Reji Moore PA-C :47 PM Nota Bene: Casimiro GERARDO / DALLIN is undergoing [...] the patient (and/or the patient's family member). E CONTROL SUPERVISOR documented in this encounter Plan of Treatment Upcoming Encounters Date Type Department Care Team (Late st Contact Info) Description 01/15/2025 2:45 PM EDT Office Visit [facility] - [place] [address] [facility] [address] [place] [address] Jayla Ontiveros MD [facility] [place] [address] 09/19/2025 2:30 PM EST Appointment [address] [place] [address] documented as of this encounter Results * XR knee 1 [...] Visit Diagnoses Diagnosis Localized osteoarthritis of left knee- Primary Localized osteoarthritis of left knee documented in this encounter Care Teams Clinical Exercise Physiologist Relationship Specialty Start Date End Date Radha SwanCODY PCP - General Primary Care 09/07/22 01/03/24 Steven Marcelo MD [address] [facility] [address] [place] [address] Surgeon General Surgery 09/07/22 Jayla Ontiveros MD [address] [facility] [address] [place] [address] Medical Oncologist Hematology and Oncology 09/07/22 documented as of this encounter
--- OUTSIDE RECORDS SUMMARY | 2024-10-05 17:15 | XMS_ITS | Encounter Summary ---
Author Organization [employer] Address [address] [place] [address] Care Team Providers Care Retail Client Solutions Analyst Name Role Phone Komal Méndez CODY Primary Care Provider + [phone] Steven Marcelo MD Unavailable [phone] Jayla Ontiveros MD Unavailable [phone] Modesta Valadez RN Unavailable Unavailable Reason for Referral * Mammography (Routine) - Closed Specialty Diagnoses / Procedures Referred By Contac t Referred To Contact Diagnoses History of breast cancer Procedures MM digital mammo diagnostic with subhash bilateral MM digital mammo diagnostic bilateral Steven Marcelo MD [address] [place] [phone] Phone: tel: fax: Referral ID Status Reason Start Date Expiration Date Visits Re quested Visits Authorized [id number] Closed 09/01/2023 02/28/2024 1 1 Reason for Visit * Reason Comments Follow-up Patient presents for a follow up diagnostic mammogram. Encounter Details Date Type Department Care Team (Late st Contact Info) Description 09/01/2023 3:15 PM EDT Office Visit [facility] [address] [facility] [address] [place] [address] Steven Marcelo MD [address] [place] [address] History of breast cancer (Primary Dx) [...] Progress Notes * Steven Marcelo MD - 09/01/2023 3:15 PM EDT Subjective: Sheron Carvajal is a 72 y.o. female. Chief Complaint Patient presents with ??? Follow-up Patient presents for a follow up diagnostic mammogram. I have reviewed and/or updated the following: HPI Ms. Carvajal is 1 year status post left lumpectomy and sentinel lymph node biopsy. She had a bilateral mammogram today which was unremarkable. I reviewed the images. She continues to do well and wilfredo anastrozole. Review of Systems All other systems reviewed and are negative. Objective: There were no vitals taken for this visit. Physical Exam she has well-healed lumpectomy incision on the left without evidence of recurrence. Examination of the right breast is unremarkable. Assessment: 1. History of breast cancer Plan: I am pleased that she continues to do well. Unless she develops any new problems or concerns I willsee her back in 1 year with her next bilateral mammogram. No follow-ups on file. documented in this encounter Plan of Treatment Upcoming Encounters Date Type Department Care Team (Late st Contact Info) Description 01/15/2025 2:45 PM EDT Office Visit [facility] - [address] [place] [address] Jayla Ontiveros MD [address] [place] [address] 09/19/2025 2:30 PM EST Appointment [facility] [address] [facility] [address] [place] [address] documented as of this encounter Results * MM digital mammo diagnostic with subhash bilateral (09/06/2024 2:28 PM EDT) Anatomical Region Laterality Modality Breast Bilateral Mammography 09/06/2024 4:00 PM EDT Impressions 09/06/2024 4:04 PM EDT FINAL IMPRESSION: Stable mammogram. No findings suspicious for malignancy. Bi-RADS: ACR BI-RADS 2: Benign findings. RECOMMENDATIONS: Screening mammography in 12 months This report will serve as the order for the recommended imaging studies/procedures. At our facility, a [place] marker is positioned over a visible skin [...] breast documented in this encounter Care Teams Retail Client Solutions Analyst Relationship Specialty Start Date End Date Komal Méndez, LEAD GAME DESIGNER PCP - General Primary Care 09/07/22 01/03/24 Steven Marcelo MD [address] [facility] [address] [place] [address] Surgeon General Surgery 09/07/22 Jayla Ontiveros MD [address] [facility] [address] [place] [address] Medical Oncologist Hematology and Oncology 09/07/22 Rory, Modesta Walsh RN Nurse Navigator 03/03/23 03/20/24 documented as of this encounter
--- OUTSIDE RECORDS SUMMARY | 2024-10-05 17:15 | XMS_ITS | Encounter Summary ---
Author Organization [employer] Address [address] [place] [address] Care Team Providers Care Director Geophysical Laboratory Name Role Phone Radha Swan APRN Primary Care Provider + [phone] Steven Marcelo MD Unavailable [phone] Jayla Ontiveros MD Unavailable [phone] Reason for Referral * CAT Scan (Routine) - Closed Specialty Diagnoses / Procedures Referred By Contac t Referred To Contact Radiology Diagnoses Right ear pain Pain of right mastoid Head and face pain Procedures CT temporal bones without IV contrast Radha Swan APRN [address] [facility] [address] [place] [address] Phone: tel: fax: [facility] CT Imaging [address] [place] [address] Phone: tel: fax: Referral ID Status Reason Start Date Expiration Date Visits Re quested Visits Authorized [id number] Closed 12/31/2022 06/29/2023 1 1 * CAT Scan (Routine) - Closed Specialty Diagnoses / Procedures Referred By Contac t Referred To Contact Radiology Diagnoses Right ear pain Pain of right mastoid Head and face pain Procedures CT brain without IV contrast Radha Swan APRN [address] [place] [address] Phone: tel: fax: [facility] CT Imaging [address] [place] [address] Phone: tel: fax: Referral ID Status Reason Start Date Expiration Date Visits Re quested Visits Authorized [id number] Closed 12/31/2022 06/29/2023 1 1 Reason for Visit * Reason Comments Otalgia Encounter Details Date Type Department Care Team (Late st Contact Info) Description 12/24/2022 3:15 PM EST Office Visit [facility] Primary Care [address] [place] [address] Radha Swan APRN [address] [place] [address] Right ear pain (Primary Dx); Pain of right mastoid; Head and face pain Social History Tobacco Use Types Packs/Day [...] Sign Reading Time Taken Comments Blood Pressure 135/86 12/24/2022 3:20 PM EST Pulse 60 12/24/2022 3:20 PM EST Temperature 36.9 ??C (98.4 ??F) 12/24/2022 3:20 PM ES T Respiratory Rate - - Oxygen Saturation 98% 12/24/2022 3:20 PM EST Inhaled Oxygen Concentration - - Weight 59 kg (130 lb) 12/24/2022 3:20 PM EST Height 170.2 cm (5' 7 ) 12/24/2022 3:20 PM EST Body Mass Index 20.36 12/24/2022 3:20 PM EST documented in this encounter Progress Notes * Radha E Dev, ORDER ENTRY CLERK - 12/24/2022 3:15 PM EST Subjective: Patient ID: Sheron Carvajal is a 72 y.o. female. Chief Complaint: Otalgia History of Present Illness Patient comes back in today for continued right-sided ear pain. This has been going on now for almost a solid month. She rates the pain as a 7-10, describes it as a toothache type pain deep in her ear. The pain radiates into the mastoid, to the cheekbone and up the side of her head. She was treatedwith an antibiotic and a nasal steroid spray, states there is been no improvement. She denies dizziness, visual changes, pain in her jaw with chewing. She has upper dentures and her lower back teeth have been pulled, denies any oral lesions or pain in her mouth. She has not had hearing loss, dizziness or headache. Denies sore throat or difficulty swallowing. Pain occurs every day but goes away with [id number]-[id number] Tylenol. Patient has had a head CT in 2020 for sudden onset of severe headaches,was normal other than dilated vascular space in the right basal ganglia. Review of Systems Constitutional: Negative. Negative for appetite change, fatigue, fever and unexpected weight change. HENT: Positive for ear pain. Negative for congestion, dental problem, ear discharge, facial swelling, hearing loss, mouth sores, rhinorrhea, sinus pressure, sinus pain, sore throat, tinnitus, troubleswallowing and voice change. Eyes: Negative for photophobia, pain, discharge, redness, itching and visual disturbance. Respiratory: Negative for chest tightness and shortness of breath. Cardiovascular: Negative for chest pain. Gastrointestinal: Negative for abdominal pain and nausea. Endocrine: Negative for polydipsia, polyphagia and polyuria. Skin: Negative. Neurological: Negative for syncope, weakness and numbness. [...] has never used smokeless tobacco. She reports previous alcohol use. She reports that she does not use drugs. Family Hx: family history is not on file. Allergies Allergen Reactions ??? Nsaids (Non-Steroidal Anti-Inflammatory Drug) Hives Single kidney---functioning at 50% ??? Valdecoxib Prior to Admission medications Medication Sig Start Date End Date Taking? Authorizing Provider amLODIPine (NORVASC) 5 MG tablet Take 5 mg by mouth daily. 08/11/22 Yes Historical Provider, anastrozole (ARIMIDEX) 1 mg tablet Take 1 tablet (1 mg total) by mouth daily for 360 doses. 09/01/22 08/27/23 Yes Jayla Ontiveros MD apixaban (Eliquis) 2.5 mg Tab tablet Take by mouth. Yes Historical Provider, cholecalciferol (VITAMIN D3) 125 mcg (5,000 unit) capsule Take by mouth. Yes Historical Provider, tjsv-RK-cnt-wym-EXN-PWHF-be-mv 1.5 mg iron- 8.73 mg CpID iron Yes Historical Provider, lisinopriL (PRINIVIL,ZESTRIL) 40 MG tablet Take by mouth. Yes Historical Provider, metoprolol succinate (TOPROL-XL) 25 MG 24 hr tablet Take 25 mg by mouth daily. 06/10/22 Yes Historical Provider, ondansetron (ZOFRAN-ODT) 4 MG disintegrating tablet ondansetron 4 mg disintegrating tablet Yes Historical Provider, ciprofloxacin HCl (CIPRO) 500 MG tablet Take 500 mg by mouth daily. 11/30/22 Historical Provider, diclofenac sodium-menthoL 1.5-10 % Cmpk Take by mouth. Historical Provider, Eliquis 5 MG tablet Take 5 mg by mouth 2 (two) times daily. 08/21/22 Historical Provider, omega-3s/dha/epa/fish oil/D3 (VITAMIN-D + OMEGA-3 ORAL) Vitamin D Historical Provider, oxyCODONE-acetaminophen (PERCOCET) 5-325 mg per tablet Take 1 tablet by mouth. 08/17/22 Historical Provider, Objective: Vitals: BP 135/86 (BP Location: Left arm, Patient Position: Sitting) Pulse 60 Temp 98.4 ??F (36.9 ??C) (Temporal Artery) Ht 1.702 m (5' 7 ) Wt 59 kg (130 lb) SpO2 98% BMI 20.36 kg/m?? Physical Exam Constitutional: General: She is not in acute distress. Appearance: Normal appearance. HENT: Head: Normocephalic. Comments: Tenderness reported with palpation of mastoid, temporal area of the head and right jaw/mandible. No redness, swelling, bruising. No crepitus noted with opening of the mouth. Full ROM of neck. Right Ear: Tympanic membrane, ear canal and external ear normal. Left Ear: Tympanic membrane, ear canal and external ear normal. Nose: Nose normal. Mouth/Throat: Mouth: Mucous membranes are moist. Pharynx: Oropharynx is clear. No oropharyngeal exudate or posterior oropharyngeal erythema. Eyes: General: Right eye: No discharge. Left eye: No discharge. Extraocular Movements: Extraocular movements intact. Conjunctiva/sclera: Conjunctivae normal. Pupils: Pupils are equal, round, and reactive to light. Cardiovascular: Rate and Rhythm: Normal rate and regular rhythm. Pulses: Normal pulses. Heart sounds: Normal heart sounds. Pulmonary: Effort: Pulmonary effort is normal. Breath sounds: Normal breath sounds. Musculoskeletal: General: Normal range of motion. Cervical back: Normal range of motion and neck supple. Tenderness present. Lymphadenopathy: Cervical: No cervical adenopathy. Skin: General: Skin is warm and dry. Capillary Refill: Capillary refill takes 2 to 3 seconds. Neurological: General: No focal deficit present. Mental Status: She is alert and oriented to person, place, and time. Cranial Nerves: No cranial nerve deficit. Sensory: No sensory deficit. Comments: Symmetry of facial nerve on exam, CN II-XII intact. Psychiatric: Mood and Affect: Mood normal. Behavior: Behavior normal. Thought Content: Thought content normal. Judgment: Judgment normal. Assessment: 1. Right ear pain 2. Pain of right mastoid 3. Head and face pain Plan: Will get a CT of the head and temporal bones. Continue using Tylenol for pain relief. Notify us of any new symptom development such as visual changes, dizziness, headache. Requested Prescriptions No prescriptions requested or ordered in this encounter RADHA SWAN APRN 12/24/2022 VIORAL PSYCHOLOGIST documented in this encounter Plan of Treatment Upcoming Encounters Date Type Department Care Team (Late st Contact Info) Description 01/15/2025 2:45 PM EDT Office Visit [facility] [address] [place] [address] Jayla Ontiveros MD [address] [facility] [address] [place] [address] 09/19/2025 2:30 PM EST Appointment [facility] [address] [facility] [address] [place] [address] documented as of this encounter Results * CT temporal bones [...] Jaun Browne. Transcribed by Kristy Vazquez (R). Radha Swan ORDER ENTRY CLERK IMG CT ORDERABLES Final Resu lt * CT brain without IV contrast (12/31/2022 [...] Jaun Browne. Transcribed by Kristy Vazquez (R). Radha Swan APRN IMG CT ORDERABLES Final Resu lt documented in this encounter Visit Diagnoses Diagnosis Right ear pain- Primary Unspecified otalgia Pain of right mastoid Head and face pain Right ear pain Unspecified otalgia Pain of right mastoid Head and face pain Right ear pain Unspecified otalgia Pain of right mastoid Head and face pain documented in this encounter Care Teams Director Geophysical Laboratory Relationship Specialty Start Date End Date Radha Swan APRN PCP - General Primary Care 09/07/22 01/03/24 Steven Marcelo MD [address] [facility] [address] [place] [address] Surgeon General Surgery 09/07/22 Jayla Ontiveros MD [address] [facility] [address] [place] [address] Medical Oncologist Hematology and Oncology 09/07/22 documented as of this encounter
--- OUTSIDE RECORDS SUMMARY | 2024-10-05 17:15 | XMS_ITS | Encounter Summary ---
Author Organization [employer] Address [address] [place] [address] Care Team Providers Care Internal Control Specialist Name Role Phone Komal Méndez APRN Primary Care Provider + [phone] Steven Marcelo MD Unavailable [phone] Jayla Ontiveros MD Unavailable [phone] Encounter Details Date Type Department Care Team (Late st Contact Info) Description 01/02/2023 Orders Only [facility] Primary Care [address] [place] [address] Komal Méndez APRN [address] [place] [address] Right ear pain (Primary Dx); Pain of right mastoid; Head and face pain; Acute serous otitis media, recurrence not specified, unspecified laterality Social History Tobacco Use Types Packs/Day Years [...] Description 01/15/2025 2:45 PM EDT Office Visit [facility] - [place] [address] [facility] [address] [place] [address] Jayla Ontiveros MD [address] [facility] [address] [place], [place] [id number] 09/19/2025 2:30 PM EST Appointment [facility] Breast Care [address] [place] [address] documented as of this encounter Visit Diagnoses Diagnosis Right ear pain- Primary Unspecified otalgia Pain of right mastoid Head and face pain Acute serous otitis media, recurrence not specified, unspecified laterality documented in this encounter Care Teams Internal Control Specialist Relationship Specialty Start Date End Date DevIreneh Nick, DATA CENTER SOLUTIONS ARCHITECT PCP - General Primary Care 09/07/22 01/03/24 Steven Marcelo MD [address] [facility] [address] [place] [address] Surgeon General Surgery 09/07/22 [place] [address] [place] [address] [address] [place] [address] Medical Oncologist Hematology and Oncology 09/07/22 documented as of this encounter
--- OUTSIDE RECORDS SUMMARY | 2024-10-05 17:15 | XMS_ITS | Encounter Summary ---
Author Organization [employer] Address [address] [place] [address] Care Team Providers Care Automatic Buffer Name Role Phone Komal Méndez APRN Primary Care Provider + [phone] Steven Marcelo MD Unavailable [phone] Jayla Ontiveros MD Unavailable [phone] Modesta Valadez RN Unavailable Unavailable Encounter Details Date Type Department Care Team (Latest Contact Info) Description 03/11/2023 Travel Social History Tobacco Use Types Packs/Day [...] Description 01/15/2025 2:45 PM EDT Office Visit [facility] - [place] [address] [place] [address] Jayla Ontiveros MD [address] [facility] [address] [place] [address] 09/19/2025 2:30 PM EST Appointment [facility] [address] [facility] [address] [place] [address] documented as of this encounter Visit Diagnoses Not on filedocumented in this encounter Care Teams Automatic Buffer Relationship Specialty Start Date End Date Komal Méndez APRN PCP - General Primary Care 09/07/22 01/03/24 Steven Marcelo MD [address] [facility] [address] [place] [address] Surgeon General Surgery 09/07/22 Jayla Ontiveros MD [address] [facility] [address] [place] [address] Medical Oncologist Hematology and Oncology 09/07/22 Rory, Modesta Walsh, RN Nurse Navigator 03/03/23 03/20/24 documented as of this encounter
--- OUTSIDE RECORDS SUMMARY | 2024-10-05 17:16 | XMS_ITS | Encounter Summary ---
Author Organization [employer] Address [address] [place] [address] Care Team Providers Care Auto Body Straightener Name Role Phone Irene Méndezh Nick ROSS Primary Care Provider + [phone] Steven Marcelo MD Unavailable [phone] Jayla Ontiveros MD Unavailable [phone] Modesta Valadez RN Unavailable Unavailable Suzanne Mora APRN Primary Care Provider [phone] Encounter Details Date Type Department Care Team (Late st Contact Info) Description 06/18/2022 Transcribed Document [facility] [place] [address] ProviderNimisha MD [address] [place] [address] Social History Tobacco Use Types Packs/Day Years Used Date Smoking Tobacco: Never Assessed Comments Unknown Sex and Gender Information Value Date Recorded Sex Assigned at Not on file Legal Sex Female 4:30 PM CDT Gender Identity Not on file Sexual Orientation Not on file documented as of this encounter Miscellaneous Notes * Cerner Conversion Note - Historical ProviderMD - 06/18/2022 9:42 AM CDT [place] Suicide Severity Rating Scale (C-SSRS) Entered On: 06/18/2022 10:28 EDT Performed On: 06/18/2022 10:28 EDT by Carlita Riddle, RN [place] Suicide Severity Rating Scale (C-SSRS) CSSRS Past Month Wish to be : No CSSRS Past Month Suicidal Thoughts : No CSSRS Lifetime Suicide Behavior : No Suicide Severity Rating Score : 0 Suicide Severity Rating : No Additional Care Required at this time Carlita Riddle RN - 06/18/2022 10:28 EDT Electronically signed by Lili [facility] Conversion [employer]ner at 02/22/2023 12:10 PM CDT documented in this encounter Plan of Treatment Upcoming Encounters Date Type Department Care Team (Late st Contact Info) Description 01/15/2025 2:45 PM EDT Office Visit [facility] [place] [address] [place] [address] Jayla Ontiveros MD [address] [facility] [address] [place], [place] [id number] 09/19/2025 2:30 PM EST Appointment [facility] Breast [facility] [address] [place] [address] documented as of this encounter Visit Diagnoses Not on filedocumented in this encounter Care Teams Auto Body Straightener Relationship Specialty Start Date End Date Komal Méndez, CODY PCP - General Primary Care 09/07/22 01/03/24 Suzanne Mora, CODY [address] [place] [address] PCP - General Family Medicine 01/04/24 Steven Marcelo MD [address] [place] [address] Surgeon General Surgery 09/07/22 Jayla Ontiveros MD [address] [facility] [address] [place] [address] Medical Oncologist Hematology and Oncology 09/07/22 Rory, Modesta Walsh, RN Nurse Navigator 03/03/23 03/20/24 documented as of this encounter
--- OUTSIDE RECORDS SUMMARY | 2024-10-05 17:16 | XMS_ITS | Encounter Summary ---
Author Organization [email or web address] Address [address] [place] [address] Care Team Providers Care Tire Buster Name Role Phone Komal Méndez APRN Primary Care Provider + [phone] Steven Marcelo MD Unavailable [phone] Jayla Ontiveros MD Unavailable [phone] Reason for Visit * Reason Onset Date Comments Results 10/09/2022 Encounter Details Date Type Department Care Team (Late st Contact Info) Description 10/09/[address] [facility] Primary Care [address] [facility] [address] [place] [address] Komal Méndez APRN [address] [facility] [place] [address] [place] [address] Results Social History Tobacco Use Types Packs/Day Years Used Date Smoking Tobacco: Former Smokeless Tobacco: Never Alcohol Use Standard Drinks/Week [...] encounter Miscellaneous Notes * Telephone Encounter - Rocio Estrada CMA - 10/11/2022 4:57 PM EST verified. Patient received results as follows from above. Patient voiced understanding. FIC CONTROLLER CABLE * Telephone Encounter - Komal Méndez APRN - 10/09/2022 8:02 AM EST Please let the pt know her labs were normal FIC CONTROLLER CABLE documented in this encounter Plan of Treatment Upcoming Encounters Date Type Department Care Team (Late st Contact Info) Description 01/15/2025 2:45 PM EDT Office Visit [facility] [facility] - [place] [address] [place] [address] Jayla Ontiveros MD [address] [place] [address] [address] [place], [place] [id number] 09/19/2025 2:30 PM EST Appointment [facility] Breast [facility] [address] [place] [address] documented as of this encounter Visit Diagnoses Not on filedocumented in this encounter Care Teams Tire Buster Relationship Specialty Start Date End Date Komal Méndez APRN PCP - General Primary Care 09/07/22 01/03/24 Steven Marcelo MD [address] [facility] [address] [place] [address] Surgeon General Surgery 09/07/22 Jayla Ontiveros MD [address] [facility] [address] [place], [place] [id number] Medical Oncologist Hematology and Oncology 09/07/22 documented as of this encounter
--- OUTSIDE RECORDS SUMMARY | 2024-10-05 17:16 | XMS_ITS | Encounter Summary ---
Author Organization [employer] Address [address] [place] [address] Care Team Providers Care Equipment Application Specialist Name Role Phone Unavailable Primary Care Provider Unavailabl e Reason for Referral * Diagnostic X-Ray (Routine) - Closed Specialty Diagnoses / Procedures Referred By Nicoleac t Referred To Contact Diagnoses Atrial fibrillation, unspecified type (HCC) Procedures DT - XR CHEST AP PORTABLE Jossie Moyer MD [address] [place] [address] Phone: tel: fax: Referral ID Status Reason Start Date Expiration Date Visits Re quested Visits Authorized [id number] Closed 09/29/2022 03/28/2023 1 1 Reason for Visit * Diagnostic X-Ray (Routine) - Closed Specialty Diagnoses / Procedures Referred By Jaswinder kan Referred To Contact Diagnoses Atrial fibrillation, unspecified type (HCC) Procedures DT - XR CHEST AP PORTABLE Jossie Moyer MD [address] [address] Phone: tel: fax: Referral ID Status Reason Start Date Expiration Date Visits Re quested Visits Authorized [id number] Closed 09/29/2022 03/28/2023 1 1 Encounter Details Date Type Department Care Team (Latest Contact Info) Description 08/23/2022 - 08/23/2022 4:22 PM EDT Hospital Encounter [facility] [address] [place] [address] Jossie Moyer MD [address] [place], [place] [id number] Atrial fibrillation, unspecified type (HCC) Discharge Disposition: Home or Self Care [...] (5 mg total) by mouth daily. 08/11/2022 Eliquis 5 MG tabletIndications :Malignant neoplasm of lower-inner quadrant of left breast in female, estrogen receptor positive (HCC),Asymptomati c menopausal state Take 1 tablet (5 mg total) by mouth 2 (two) times daily. 08/21/2022 metoprolol succinate (TOPROL-XL) 25 MG 24 hr tabletIndications :Malignant neoplasm of lower-inner quadrant of left breast in female, estrogen receptor positive (HCC),Asymptomati c menopausal state Take 1 tablet (25 mg total) by mouth daily. 06/10/2022 oxyCODONE-acetami nophen (PERCOCET) 5-325 mg per tablet Take 1 tablet by mouth. 08/17/2022 07/07/2023 documented as of this encounter Plan of Treatment Upcoming Encounters Date Type Department Care Team (Late st Contact Info) Description 01/15/2025 2:45 PM EDT Office Visit [facility] [address] [facility] [address] [place] [address] Jayla Ontiveros MD [address] [facility] [address] [place] [address] 09/19/2025 2:30 PM EST Appointment [facility] [address] [facility] [address] [place] [address] documented as of this encounter Procedures Procedure Name Priority Date/Time Associated Diagnosis Comments XR CHEST AP PORTABLE Routine 08/23/2022 5:06 PM EDT Atrial fibrillation, unspecified type (HCC) documented in this encounter Results * DT - XR CHEST AP PORTABLE (08/23/2022 5:06 PM EDT) Anatomical Region Laterality Modality Chest X-Ray 08/23/2022 6:05 PM EDT Impressions 09/29/2022 5:02 PM EST No active disease by portable imaging. Narrative 09/29/2022 5:02 PM EST Sheron Carvajal : ??1950 PORTABLE CHEST X-RAY CLINICAL HISTORY: Chest pain, dyspnea. COMPARISON: ??06/18/2022. FINDINGS: ??Single portable view of the chest obtained. ??There are various overlying monitor leads/artifacts in place. The lungs are well expanded and clear where they can be visualized. Stable biapical pleural thickening, likely postinfectious. Cardiac size is within normal limits. Vascularity is normal considering technique. ??No pleural fluid is demonstrated by portable imaging. ??Left pacemaker unchanged. Procedure Note Vito Barone MD - 09/29/2022 Sheron Carvajal : 1950 PORTABLE CHEST X-RAY CLINICAL HISTORY: Chest pain, dyspnea. COMPARISON: 06/18/2022. FINDINGS: Single portable view of the chest obtained. There are various overlying monitor leads/artifacts in place. The lungs are well expanded and clear where they can be visualized. Stable biapical pleural thickening, likely postinfectious. Cardiac size is within normal limits. Vascularity is normal considering technique. No pleural fluid is demonstrated by portable imaging. Left pacemaker unchanged. IMPRESSION: No active disease by portable imaging. Jossie Moyer MD IMG DIAGNOSTIC IMAGING ORDERAB LES Final Result documented in this encounter Visit Diagnoses Diagnosis Atrial fibrillation, unspecified type (HCC) documented in this encounter
--- OUTSIDE RECORDS SUMMARY | 2024-10-05 17:16 | XMS_ITS | Encounter Summary ---
Author Organization [employer] Address [address] [place] [address] Care Team Providers Care Manager Of Project Management Name Role Phone Irene Méndezh Nick ROSS Primary Care Provider + [phone] Steven Marcelo MD Unavailable [phone] Jayla Ontiveros MD Unavailable [phone] Modesta Valadez RN Unavailable Unavailable Suzanne oMra APRN Primary Care Provider [phone] Encounter Details Date Type Department Care Team (Late st Contact Info) Description 06/18/[address] [facility] Family Medicine [place] [address] ProviderNimisha MD [address] [place] [address] Social History Tobacco Use Types Packs/Day Years Used Date Smoking Tobacco: Never Assessed Comments Unknown Sex and Gender Information Value Date Recorded Sex Assigned at Not on file Legal Sex Female 4:30 PM CDT Gender Identity Not on file Sexual Orientation Not on file documented as of this encounter Miscellaneous Notes * Cerner Conversion Note - Historical ProviderMD - 06/18/2022 12:33 PM CDT ED Discharge Entered On: 06/18/2022 12:34 EDT Performed On: 06/18/2022 12:33 EDT by Carlita Riddle, certified surgical technician Process Patient Disposition : Discharge Personal Belongings With Patient : Yes Patient Education Completed : Yes Teaching Evaluation : Verbalizes understanding IV Discontinued : Not applicable Nursing Documentation Completed : Yes Carlita Riddle RN - 06/18/2022 12:33 EDT ED Discharge Discharge To : Home with ambulatory/outpatient follow-up Mode Of Departure : Ambulatory Accompanied By : Unaccompanied Discharge Instructions Reviewed With, Opportunity For Questions Given : Patient Prescriptions Given to Patient : Yes Number of Prescriptions Given : 1 Carlita Riddle RN - 06/18/2022 12:33 EDT Electronically signed by Lili [facility] Conversion Air Compressor Mechanic Cerner at 02/22/2023 11:50 AM CDT documented in this encounter Plan of Treatment Upcoming Encounters Date Type Department Care Team (Late st Contact Info) Description 01/15/2025 2:45 PM EDT Office Visit [facility] [place] [address] [facility] [address] [place] [address] Jayla Ontiveros MD [address] [place] [address] [address] [place] [address] 09/19/2025 2:30 PM EST Appointment [facility] Breast [facility] [address] [facility] [address] [place] [address] documented as of this encounter Visit Diagnoses Not on filedocumented in this encounter Care Teams Manager Of Project Management Relationship Specialty Start Date End Date Komal Méndez APRN PCP - General Primary Care 09/07/22 01/03/24 Suzanne Mora, CODY [address] [facility] [address] [place] [address] PCP - General Family Medicine 01/04/24 Steven Marcelo MD [address] [facility] [address] [place] [address] Surgeon General Surgery 09/07/22 Jayla Ontiveros MD [address] [facility] [address] [place] [address] Medical Oncologist Hematology and Oncology 09/07/22 Rory, Modesta Walsh RN Nurse Navigator 03/03/23 03/20/24 documented as of this encounter
--- OUTSIDE RECORDS SUMMARY | 2024-10-05 17:16 | XMS_ITS | Encounter Summary ---
Author Organization [employer] Address [address] [place] [address] Care Team Providers Care Business Programmer Name Role Phone Radha Swan APRN Primary Care Provider + [phone] Steven Marcelo MD Unavailable [phone] Jayla Ontiveros MD Unavailable [phone] Reason for Visit * Reason Comments Otalgia right ear pain for a bout month, dull pain Encounter Details Date Type Department Care Team (Late st Contact Info) Description 11/12/2022 4:00 PM EST Office Visit [facility] [address] [place] [address] Radha Swan APRN [address] [facility] [address] [place] [address] Right ear pain (Primary Dx); Acute serous otitis media, recurrence not specified, unspecified laterality; Pain of right mastoid; Acute suppurative pharyngitis Social History Tobacco Use Types Packs/Day Years [...] Sign Reading Time Taken Comments Blood Pressure 121/78 11/12/2022 4:18 PM EST Pulse 73 11/12/2022 4:18 PM EST Temperature 36.3 ??C (97.3 ??F) 11/12/2022 4:18 PM ES T Respiratory Rate - - Oxygen Saturation 100% 11/12/2022 4:18 PM EST Inhaled Oxygen Concentration - - Weight 60.1 kg (132 lb 9.6 oz) 11/12/2022 4:18 P M EST Height 170.2 cm (5' 7 ) 11/12/2022 4:18 PM EST Body Mass Index 20.77 11/12/2022 4:18 PM EST documented in this encounter Progress Notes * Radha Swan, SOLUTION LEAD - 11/12/2022 4:00 PM EST Subjective: Patient ID: Sheron Carvajal is a 71 y.o. female. Chief Complaint: Otalgia (right ear pain for about month, dull pain ) History of Present Illness Patient comes in today with complaints of pain in and around her right ear for the last month. She describes the pain as a dull ache, tenderness around the mastoid as well. She denies feelings of fullness, tinnitus or hearing loss. She denies drainage from the ear. She also denies sore throat, headache or sinus pressure on that side. She has not had fevers, chills or any other URI symptoms. She has never had this type of pain before Review of Systems Constitutional: Negative for appetite change, chills, fatigue and fever. HENT: Positive for ear pain. Negative for congestion, ear discharge, hearing loss, nosebleeds, postnasal drip, rhinorrhea, sinus pressure, sinus pain, sneezing, sore throat and tinnitus. Eyes: Negative for pain, discharge, redness and visual disturbance. Respiratory: Negative for cough, chest tightness, shortness of breath and wheezing. Cardiovascular: Negative for chest pain, palpitations and leg swelling. Gastrointestinal: Negative for abdominal pain, blood in stool, constipation, diarrhea, nausea and vomiting. Endocrine: Negative for cold intolerance, heat intolerance, polydipsia, polyphagia and polyuria. Genitourinary: Negative for dysuria, flank pain, frequency, hematuria and urgency. Musculoskeletal: Negative for arthralgias, back pain, joint swelling, myalgias and neck pain. Skin: Negative for pallor and rash. Allergic/Immunologic: Negative for environmental allergies, food allergies and immunocompromised state. Neurological: Negative for dizziness, tremors, syncope, weakness, light- headedness, numbness and headaches. Hematological: Negative for adenopathy. Does not bruise/bleed easily. Psychiatric/Behavioral: Negative for behavioral problems, confusion, sleep disturbance and suicidalideas. The patient is not nervous/anxious and is not hyperactive. Negative except HPI Past Medical History: Diagnosis [...] by mouth 2 (two) times daily. 08/21/22 Yes Historical Provider, [id number] 1.5 mg iron- 8.73 mg CpID iron Yes Historical Provider, MD lisinopriL (PRINIVIL,ZESTRIL) 40 MG tablet Take by mouth. Yes Historical Provider, lisinopril, bulk, 100 % Powd Take by mouth. Yes Historical Provider, metoprolol succinate (TOPROL-XL) 100 MG 24 hr tablet Take by mouth. Yes Historical Provider, metoprolol succinate (TOPROL-XL) 25 MG 24 hr tablet Take 25 mg by mouth daily. 06/10/22 Yes Historical Provider, metoprolol ta-hydrochlorothiaz (LOPRESSOR HCT) 100-25 mg per tablet Take by mouth. Yes Historical Provider, omega-3s/dha/epa/fish oil/D3 (VITAMIN-D + OMEGA-3 ORAL) Vitamin D Yes Historical Provider, ondansetron (ZOFRAN-ODT) 4 MG disintegrating tablet ondansetron 4 mg disintegrating tablet Yes Historical Provider, oxyCODONE-acetaminophen (PERCOCET) 5-325 mg per tablet Take 1 tablet by mouth. 08/17/22 Yes Historical Provider, amoxicillin-clavulanate (AUGMENTIN) 875-125 mg per tablet Take 1 tablet by mouth 2 (two) times daily. 11/12/22 Radha Swan APRN fluticasone propionate (Allergy Relief, fluticasone,) 50 mcg/actuation nasal spray 1 spray by Nasalroute daily for 30 days. 11/12/22 12/12/22 Radha Swan APRN Objective: Vitals: BP 121/78 Pulse 73 Temp 97.3 ??F (36.3 ??C) Ht 1.702 m (5' 7 ) Wt 60.1 kg (132 lb 9.6 oz) SpO2 100% BMI 20.77 kg/m?? Physical Exam Constitutional: General: She is not in acute distress. Appearance: Normal appearance. HENT: Head: Normocephalic. Comments: Tenderness noted with palpation below rigth ear, just next to the mastoid. No warmth or redness noted. No sinus tenderness. Right Ear: Ear canal and external ear normal. Left Ear: Tympanic membrane, ear canal and external ear normal. Ears: Comments: Moderate amt of fluid noted behind right RM Nose: Nose normal. Mouth/Throat: Mouth: Mucous membranes are dry. Pharynx: Oropharyngeal exudate present. Comments: Small amt of white exudate or tonsilar stone noted on right tonsil. Post. Pharynx inflamed. No other oral lesions. Eyes: Conjunctiva/sclera: Conjunctivae normal. Pupils: Pupils are [...] Judgment normal. Assessment: Encounter Diagnoses Name Primary? Right ear pain Yes ??? Acute serous otitis media, recurrence not specified, unspecified laterality ??? Pain of right mastoid ??? Acute suppurative pharyngitis Plan: Will treat with antibiotics since this is persisted for a month. Also will have her use fluticasonenasal spray for the fluid behind the TM. Return to clinic as needed. Requested Prescriptions Signed Prescriptions Disp Refills ??? amoxicillin-clavulanate (AUGMENTIN) 875-125 mg per tablet 10 tablet 0 Sig: Take 1 tablet by mouth 2 (two) times daily. ??? fluticasone propionate (Allergy Relief, fluticasone,) 50 mcg/actuation nasal spray 9.9 g 1 Si spray by Nasal route daily for 30 days. RADHA SWAN APRN 11/14/2022 M AND GAS TURBINE ASSEMBLER documented in this encounter Plan of Treatment Upcoming Encounters Date Type Department Care Team (Late st Contact Info) Description 01/15/2025 2:45 PM EDT Office Visit [facility] [place] [facility] - [address] [facility] [place] [facility] [address] [place] [id number] Jayla Ontiveros MD [address] [place] [address] 09/19/2025 2:30 PM EST Appointment [facility] [address] [facility] [address] [place] [address] documented as of this encounter Visit Diagnoses Diagnosis Right ear pain- Primary Unspecified otalgia Acute serous otitis media, recurrence not specified, unspecified laterality Pain of right mastoid Acute suppurative pharyngitis Acute pharyngitis documented in this encounter Care Teams Business Programmer Relationship Specialty Start Date End Date Radha Swan, SOLUTION LEAD PCP - General Primary Care 09/07/22 01/03/24 Steven Marcelo MD [address] [facility] [address] [place] [address] Surgeon General Surgery 09/07/22 Jayla Ontiveros MD [address] [facility] [address] [place] [address] Medical Oncologist Hematology and Oncology 09/07/22 documented as of this encounter
--- OUTSIDE RECORDS SUMMARY | 2024-10-05 17:16 | XMS_ITS | Encounter Summary ---
Author Organization [employer] Address [address] [place] [address] Care Team Providers Care Corrections Officer Name Role Phone Unavailable Primary Care Provider Unavailabl e Reason for Referral * Mammography (Routine) - Closed Specialty Diagnoses / Procedures Referred By Jaswinder kan Referred To Contact Diagnoses Malignant neoplasm of left female breast, unspecified estrogen receptor status, unspecified site of breast (HCC) Procedures MM digital mammo diagnostic left Steven Marcelo MD [address] [place] [phone] Phone: tel: fax: Referral ID Status Reason Start Date Expiration Date Visits Re quested Visits Authorized [id number] Closed 12/20/2022 06/18/2023 1 1 Reason for Visit * Auth/Cert Specialty Diagnoses / Procedures Referred By Jaswinder kan Referred To Contact Diagnoses 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 [place] [address] Steven Marcelo MD [address] [place] [address] Malignant neoplasm of left female breast, unspecified estrogen receptor status, unspecified site of breast (HCC) Discharge Disposition: Home or Self Care [...] (5 mg total) by mouth daily. 08/11/2022 metoprolol succinate (TOPROL-XL) 25 MG 24 hr [...] Description 01/15/2025 2:45 PM EDT Office Visit [facility] - [address] [facility] [address] [place] [id number] Jayla Ontiveros MD [address] [place], [place] [address] 09/19/2025 2:30 PM EST Appointment [facility] Breast [address] [place] [address] documented as of this encounter Procedures Procedure Name Priority Date/Time Associated Diagnosis Comments MM DIGITAL MAMMO DIAGNOSTIC LEFT Routine 08/17/2022 12:44 PM EDT Malignant neoplasm of left female breast, unspecified estrogen receptor status, unspecified site of breast (HCC) documented in this encounter Results * MM digital mammo diagnostic left (08/17/2022 12:44 PM EDT) Anatomical Region Laterality Modality Breast Left Mammography 08/17/2022 12:1 4 PM EDT Impressions 04/20/2023 2:21 PM EDT Successful needle localization of the left breast. RECOMMENDATION: Left digital diagnostic mammogram in 6 months. Sheron Carvajal : 1950 Narrative 04/20/2023 2:21 PM EDT Sheron Carvajal : 1950 PROCEDURE: Left breast Ultrasound guided needle localization, left digital diagnostic mammogram for wire placement, and left breast surgical specimen radiograph. 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 Time out was observed to verify patient's identity and correct location of the breast abnormality. The presence of the tissue marker clip with residual adjacent lesion at the 8:00 position of the left breast was confirmed with an 18 MHz linear transducer. An inferior ??approach was chosen. The breast was cleansed with ChloraPrep. A 1% buffered Lidocaine solution was used for local anesthesia. A 5.7 cm Dualock needle was placed into the target under direct sonographic guidance. The wire was advanced and needle withdrawn. Mammographic images were obtained to demonstrate the position of the wire relative to the target. The wire was secured to the skin and the patient was transferred to the surgery department. The excisional biopsy was performed by Steven Marcelo MD. Specimen radiograph was obtained and confirmed that the clip/biopsy site were resected. Procedure Note Romaine Rivas MD - 04/20/2023 Sheron Carvajal : 1950 PROCEDURE: Left breast Ultrasound guided needle localization, left digital diagnostic mammogram for wire placement, and left breast surgical specimen radiograph. 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 Time out was observed to verify patient's identity and correct location of the breast abnormality. The presence of the tissue marker clip with residual adjacent lesion at the 8:00 position of the left breast was confirmed with an 18 MHz linear transducer. An inferior approach was chosen. The breast was cleansed with ChloraPrep. A 1% buffered Lidocaine solution was used for local anesthesia. A 5.7 cm Dualock needle was placed into the target under direct sonographic guidance. The wire was advanced and needle withdrawn. Mammographic images were obtained to demonstrate the position of the wire relative to the target. The wire was secured to the skin and the patient was transferred to the surgery department. The excisional biopsy was performed by Steven Marcelo MD. Specimen radiograph was obtained and confirmed that the clip/biopsy site were resected. IMPRESSION: Successful needle localization of the left breast. RECOMMENDATION: Left digital diagnostic mammogram in 6 months. Sheron Carvajal : 1950 us Steven Marcelo MD IMG MAMMOGRAPHY ORDERABLES F inal Result documented in this encounter Visit Diagnoses Diagnosis Malignant neoplasm of left female breast, unspecified estrogen receptor status, unspecified site of breast (HCC) documented in this encounter
--- OUTSIDE RECORDS SUMMARY | 2024-10-05 17:16 | XMS_ITS | Encounter Summary ---
Author Organization [employer] Address [address] [place] [address] Care Team Providers Care Multimedia Programmer Name Role Phone Komal Méndez Nick ROSS Primary Care Provider [phone] Steven Marcelo MD Unavailable [phone] Jayla Ontiveros MD Unavailable [phone] Encounter Details Date Type Department Care Team (Late st Contact Info) Description 07/19/2022 Historic Encounter [facility] [address] [place] [address] Romaine Rivas MD [address] [place] [address] [address] [place], [place] [id number] Social History Tobacco Use Types Packs/Day Years Used Date Smoking Tobacco: Never Assessed PHQ-2 Answer Date Recorded Patient Health Questionnaire-2 Score 0 10/08/2022 Comments Unknown Sex and Gender Information Value [...] Description 01/15/2025 2:45 PM EDT Office Visit [place] [facility] - [place] [address] [place] [address] Jayla Ontiveros MD [address] [place] [address] 09/19/2025 2:30 PM EST Appointment [address] [place] [address] documented as of this encounter Procedures Procedure Name Priority Date/Time Associated Diagnosis Comments US BREAST LEFT LIMITED Routine 07/19/2022 12:00 PM EDT documented in this encounter Results * US BREAST LEFT LIMITED (07/19/2022 12:00 PM EDT) Anatomical Region Laterality Modality Breast Left Ultrasound 07/19/2022 12:0 0 PM EDT Narrative 07/22/2022 5:53 PM EDT PROCEDURE: VACUUM ASSISTED STEREOTACTIC LEFT BREAST NEEDLE CORE BIOPSY and left breast clip deployment with ultrasound guidance. INDICATION: Subcentimeter solid mass 8:00 position left breast REPORT: Informed consent was obtained. Time-out was observed to verify patient's identity and correct location of the breast abnormality. A medial approach was used. The lesion was targeted on stereo pair images. The breast was cleansed with ChloraPrep and local anesthesia was obtained with 1% Lidocaine, with and without Epinephrine. A small skin incision was made with a scalpel and a 9 gauge Hologic probe was then advanced into the breast using the stereotactic coordinates. ??Images were obtained to confirm accurate positioning of the probe. Continuous vacuum assisted samples were then obtained. Post-biopsy images revealed that a sufficient sampling of the lesion occurred. Two separate attempts at placing a [place] lo[place] tissue marker clip (MRI compatible) at the biopsy site for future monitoring were unsuccessful as the clip would not deployed. The needle was withdrawn and pressure was applied until all appreciable bleeding subsided. The patient was then taken to the ultrasound room. Under aseptic technique as well as utilizing local anesthetic, a single [place] lo[place] clip was deployed within the biopsy cavity/vicinity with ultrasound guidance through an additional tiny incision made within the lower inner quadrant of the left breast. The incisions were closed with Steri-strips and a dressing/ice pack was applied. Routine mammographic images were obtained in ML and CC projections to document position of the clip relative to the biopsy site. The clip is situated within or just adjacent to the biopsy cavity. Biopsy specimens were forwarded to the Pathology Department. Post-biopsy instructions were reviewed with the patient and a written copy was given to the patient as well. PATHOLOGY: Invasive ductal carcinoma. ER positive. Weakly AR positive. HER-2/jared negative. These results are concordant with the mammographic evaluation. RECOMMENDATION: Medical oncology and surgical consultations. I personally discussed the results and recommendations with the patient by phone on ??July 21, 2022. Cathy Vanessa RN, patient navigator, will assist the patient with regard to the above post biopsy recommendations. cc: Komal MATHEW Procedure Note Romaine Rivas MD - 02/22/2023 PROCEDURE: VACUUM ASSISTED STEREOTACTIC LEFT BREAST NEEDLE CORE BIOPSY and left breast clip deployment with ultrasound guidance. INDICATION: Subcentimeter solid mass 8:00 position left breast REPORT: Informed consent was obtained. Time-out was observed to verify patient's identity and correct location of the breast abnormality. A medial approach was used. The lesion was targeted on stereo pair images. The breast was cleansed with ChloraPrep and local anesthesia was obtained with 1% Lidocaine, with and without Epinephrine. A small skin incision was made with a scalpel and a 9 gauge Hologic probe was then advanced into the breast using the stereotactic coordinates. Images were obtained to confirm accurate positioning of the probe. Continuous vacuum assisted samples were then obtained. Post-biopsy images revealed that a sufficient sampling of the lesion occurred. Two separate attempts at placing a [place] lo[place] tissue marker clip (MRI compatible) at the biopsy site for future monitoring were unsuccessful as the clip would not deployed. The needle was withdrawn and pressure was applied until all appreciable bleeding subsided. The patient was then taken to the ultrasound room. Under aseptic technique as well as utilizing local anesthetic, a single [place] lo[place] clip was deployed within the biopsy cavity/vicinity with ultrasound guidance through an additional tiny incision made within the lower inner quadrant of the left breast. The incisions were closed with Steri-strips and a dressing/ice pack was applied. Routine mammographic images were obtained in ML and CC projections to document position of the clip relative to the biopsy site. The clip is situated within or just adjacent to the biopsy cavity. Biopsy specimens were forwarded to the Pathology Department. Post-biopsy instructions were reviewed with the patient and a written copy was given to the patient as well. PATHOLOGY: Invasive ductal carcinoma. ER positive. Weakly AR positive. HER-2/jared negative. These results are concordant with the mammographic evaluation. RECOMMENDATION: Medical oncology and surgical consultations. I personally discussed the results and recommendations with the patient by phone on July 21, 2022. Cathy Vanessa RN, patient navigator, will assist the patient with regard to the above post biopsy recommendations. cc: Komal Méndez [facility] us Romaine Rivas MD [facility] ORDERABLES Final Result documented in this encounter Visit Diagnoses Not on filedocumented in this encounter Care Teams Multimedia Programmer Relationship Specialty Start Date End Date Komal Méndez, GROCERY STOCKER PCP - General Primary Care 09/07/22 01/03/24 Steven Marcelo MD [address] [facility] [address] [place] [address] Surgeon General Surgery 09/07/22 Jayla Ontiveros MD [address] [facility] [address] [place] [address] Medical Oncologist Hematology and Oncology 09/07/22 documented as of this encounter
--- OUTSIDE RECORDS SUMMARY | 2024-10-05 17:16 | XMS_ITS | Encounter Summary ---
Author Organization [employer] Address [address] [place] [address] Care Team Providers Care Therapeutic Recreation Leader Name Role Phone Komal Méndez APRN Primary Care Provider + [phone] Steven Marcelo MD Unavailable [phone] Jayla Ontiveros MD Unavailable [phone] Modesta Valadez RN Unavailable Unavailable Suzanne Mora APRN Primary Care Provider [phone] Encounter Details Date Type Department Care Team (Late st Contact Info) Description 06/18/2022 Transcribed Document [facility] Family Medicine [facility] [place] [address] ProviderNimisha MD [address] [place] [address] Social History Tobacco Use Types Packs/Day Years Used Date Smoking Tobacco: Never Assessed Comments Unknown Sex and Gender Information Value Date Recorded Sex Assigned at Not on file Legal Sex Female 4:30 PM CDT Gender Identity Not on file Sexual Orientation Not on file documented as of this encounter Miscellaneous Notes * Cerner Conversion Note - Historical ProviderMD - 06/18/2022 12:29 PM CDT Electronically signed by Lili [facility] Conversion Project Production Engineer Cerner at 02/22/2023 11:51 AM CDT documented in this encounter Plan of Treatment Upcoming Encounters Date Type Department Care Team (Late st Contact Info) Description 01/15/2025 2:45 PM EDT Office Visit [facility] - [place] [address] [place] [address] Jayla Ontiveros MD [address] [facility] [address] [place], [place] [address] 09/19/2025 2:30 PM EST Appointment [facility] Breast Care [address] [facility] [place] [facility] [address] [place] [address] documented as of this encounter Visit Diagnoses Not on filedocumented in this encounter Care Teams Therapeutic Recreation Leader Relationship Specialty Start Date End Date Komal Méndez WEAVING TEACHER PCP - General Primary Care 09/07/22 01/03/24 Suzanne Mora, WEAVING TEACHER [address] [place] [address] PCP - General Family Medicine 01/04/24 Steven Marcelo MD [address] [facility] [address] [place] [address] Surgeon General Surgery 09/07/22 Jayla Ontiveros MD [address] [facility] [address] [place] [address] Medical Oncologist Hematology and Oncology 09/07/22 Rory, Modesta Walsh, RN Nurse Navigator 03/03/23 03/20/24 documented as of this encounter
--- OUTSIDE RECORDS SUMMARY | 2024-10-05 17:16 | XMS_ITS | Encounter Summary ---
Author Organization [employer] Address [address] [place] [address] Care Team Providers Care Laborer Tin Can Name Role Phone Komal Méndez APRN Primary Care Provider + [phone] Steven Marcelo MD Unavailable [phone] Jayla Ontiveros MD Unavailable [phone] Reason for Visit * Reason Onset Date Comments Esitmate Radiation 09/09/2022 No Est. Neede d Pt has Dual Coverage Encounter Details Date Type Department Care Team (Late st Contact Info) Description 09/09/2022 Telephone [facility] - David [facility] [address] [place] [address] Jayla Ontiveros MD [address] [facility] [address] [place] [address] Esitmate Radiation (No Est. Needed Pt has Dual Coverage) Social History Tobacco Use Types Packs/Day Years Used Date Smoking Tobacco: Former Smokeless Tobacco: Never Alcohol Use Standard Drinks/Week Comments Not Currently 0 (1 standard drink = 0.6 oz pur e alcohol) Comments No Sex and Gender Information Value Date Recorded Sex Assigned at Not on file Legal Sex Female 4:30 PM CDT Gender Identity Not on file Sexual Orientation Not on file documented as of this encounter Miscellaneous Notes * Telephone Encounter - Glen Falk - 09/09/2022 9:09 AM EDTSummary: Estimate Radiation No Est. Needed Pt has Dual Coverage documented in this encounter Plan of Treatment Upcoming Encounters Date Type Department Care Team (Late st Contact Info) Description 01/15/2025 2:45 PM EDT Office Visit [facility] - [place] [address] [place] [phone] Jayla Ontiveros MD [address] [place] [address] [address] [place], [place] [address] 09/19/2025 2:30 PM EST Appointment [facility] Breast [facility] [address] Labs [facility] [address] [place] [address] documented as of this encounter Visit Diagnoses Not on filedocumented in this encounter Care Teams Laborer Tin Can Relationship Specialty Start Date End Date Komal Méndez, CODY PCP - General Primary Care 09/07/22 01/03/24 Steven Marcelo MD [address] Labs [facility] [address] [place] [address] Surgeon General Surgery 09/07/22 Jayla Ontiveros MD [address] [facility] [address] [place] [address] Medical Oncologist Hematology and Oncology 09/07/22 documented as of this encounter
--- OUTSIDE RECORDS SUMMARY | 2024-10-05 17:16 | XMS_ITS | Encounter Summary ---
Author Organization [employer] Address [address] [place] [address] Care Team Providers Care Manager Ambulatory Name Role Phone Unavailable Primary Care Provider Unavailabl e Reason for Referral * Mammography (Routine) - Closed Specialty Diagnoses / Procedures Referred By Jaswinder t Referred To Contact Diagnoses Malignant neoplasm of left female breast, unspecified estrogen receptor status, unspecified site of breast (HCC) Procedures Mammography breast specimen Steven Marcelo MD [address] [place] [address] Phone: tel: fax: Referral ID Status Reason Start Date Expiration Date Visits Re quested Visits Authorized [id number] Closed 12/20/2022 06/18/2023 1 1 Reason for Visit * Auth/Cert Specialty Diagnoses / Procedures Referred By Jaswinder t Referred To Contact Diagnoses 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 Procedures IL BX/REMV,LYMPH NODE,DEEP AXILL IL MASTECTOMY, PARTIAL LUMPECTOMY, BREAST, WITH SENTINEL LYMPH NODE BIOPSY Steven Marcelo MD [address] [place] [address] Phone: tel: fax: Referral ID Status Reason Start Date Expiration Date Visits Re quested Visits Authorized [id number] 08/04/2022 1 1 Encounter Details Date Type Department Care Team (Latest Contact Info) Description 08/17/2022 10:00 AM EDT - 08/17/2022 10:29 AM EDT Hospital Encounter [facility] Breast [facility] [address] [place] [address] Steven Marcelo MD [address] [place] [address] Malignant neoplasm of left female [...] Description 01/15/2025 2:45 PM EDT Office Visit [facility] [address] [place] [address] Jayla Ontiveros MD [address] [place], [place] [address] 09/19/2025 2:30 PM EST Appointment [address] [place] [address] documented as of this encounter Procedures Procedure Name Priority Date/Time Associated Diagnosis Comments MAMMO BREAST SPECIMEN Routine 08/17/2022 12:42 PM EDT Malignant neoplasm of left female breast, unspecified estrogen receptor status, unspecified site of breast (HCC) documented in this encounter Results * Mammography breast specimen (08/17/2022 12:42 PM EDT) Anatomical Region Laterality Modality Breast Mammography 08/17/2022 12:1 4 PM EDT Impressions 04/20/2023 2:27 PM EDT Successful needle localization of the left breast. RECOMMENDATION: Left digital diagnostic mammogram in 6 months. Sheron Carvajal : 1950 Narrative 04/20/2023 2:27 PM EDT Sheron Carvajal : 1950 PROCEDURE: [...]
--- OUTSIDE RECORDS SUMMARY | 2024-10-05 17:16 | XMS_ITS | Encounter Summary ---
Author Organization [employer] Address [address] [place] [address] Care Team Providers Care Combination Welder Name Role Phone Irene Méndezh Nick ROSS Primary Care Provider + [phone] Steven Marcelo MD Unavailable [phone] Jayla Ontiveros MD Unavailable [phone] Modesta Valadez RN Unavailable Unavailable Suzanne Mora APRN Primary Care Provider [phone] Encounter Details Date Type Department Care Team (Late st Contact Info) Description 06/18/2022 Transcribed Document [facility] Family Medicine [facility] [place] [address] ProviderNimisha MD [address] [place] [address] Social History Tobacco Use Types [...] Historical ProviderMD - 06/18/2022 12:29 PM CDT [address] [address] Visit Date/Time: 06/18/2022 12:29:27 SHERON CARVAJAL The above patient was seen in the hospital today and needs to be excused from work/school until Return to Work/School Date: 06/24/2022 Electronically signed by Cristiane Pearson Conversion Electronic Video Games Servicer Cerner at 02/22/2023 12:06 PM CDT documented in this encounter Plan of Treatment Upcoming Encounters Date Type Department Care Team (Late st Contact Info) Description 01/15/2025 2:45 PM EDT Office Visit [facility] - [place] [address] [place] [address] Jayla Ontiveros MD [address] [place], [place] [address] 09/19/2025 2:30 PM EST Appointment [facility] Breast [facility] [address] [facility] [address] [place] [address] documented as of this encounter Visit Diagnoses Not on filedocumented in this encounter Care Teams Combination Welder Relationship Specialty Start Date End Date Komal Méndez APRN PCP - General Primary Care 09/07/22 01/03/24 Suzanne Mora APRN [address] [place] [address] PCP - General Family Medicine 01/04/24 Steven Marcelo MD [address] [place] [address] Surgeon General Surgery 09/07/22 Jayla Ontiveros MD [address] [place], [place] [id number] Medical Oncologist Hematology and Oncology 09/07/22 Rory, Modesta Walsh, RN Nurse Navigator 03/03/23 03/20/24 documented as of this encounter
--- OUTSIDE RECORDS SUMMARY | 2024-10-05 17:16 | XMS_ITS | Encounter Summary ---
Author Organization [employer] Address [address] [place] [address] Care Team Providers Care Pattern Mechanic Name Role Phone Komal Méndez APRN Primary Care Provider + [phone] Steven Marcelo MD Unavailable [phone] Jayla Ontiveros MD Unavailable [phone] Modesta Valadez RN Unavailable Unavailable Suzanne Mora APRN Primary Care Provider [phone] Encounter Details Date Type Department Care Team (Latest Contact Info) Description 09/01/2022 Outside Orders [facility] Central Scheduling 1 [place] [address] Jayla Ontiveros MD [address] [facility] [address] [place] [address] Postmenopausal status (age-related) (natural) (Primary Dx) Social History Tobacco Use Types Packs/Day Years Used Date Smoking Tobacco: Former Smokeless Tobacco: Never Alcohol Use Standard Drinks/Week Comments Not Currently 0 (1 standard drink = 0.6 oz pur e alcohol) Comments Unknown Sex and Gender Information Value Date Recorded Sex Assigned at Not on file Legal Sex Female 4:30 PM CDT Gender Identity Not on file Sexual Orientation Not on file documented as of this encounter Plan of Treatment Upcoming Encounters Date Type Department Care Team (Late st Contact Info) Description 01/15/2025 2:45 PM EDT Office Visit [facility] - [place] [address] [place] [address] Jayla Ontiveros MD [address] [facility] [address] [place], [place] [id number] 09/19/2025 2:30 PM EST Appointment [facility] [address] [facility] [address] [place] [address] documented as of this encounter Visit Diagnoses Diagnosis Postmenopausal status (age-related) (natural)- Primary Asymptomatic postmenopausal status (age-related) (natural) documented in this encounter Care Teams Pattern Mechanic Relationship Specialty Start Date End Date Komal Méndez APRN PCP - General Primary Care 09/07/22 01/03/24 Suzanne Mora APRN [address] [place] [address] PCP - General Family Medicine 01/04/24 Steven Marcelo MD [address] [facility] [address] [place] [address] Surgeon General Surgery 09/07/22 Jayla Ontiveros MD [address] [facility] [address] [place] [address] Medical Oncologist Hematology and Oncology 09/07/22 Modesta Valadez, RN Nurse Navigator 03/03/23 03/20/24 documented as of this encounter
--- OUTSIDE RECORDS SUMMARY | 2024-10-05 17:16 | XMS_ITS | Encounter Summary ---
Author Organization [employer] Address [address] [place] [address] Care Team Providers Care Obstetrician/Gynecologist Name Role Phone Komal Méndez Nick ROSS Primary Care Provider + [phone] Steven Marcelo MD Unavailable [phone] Jayla Ontiveros MD Unavailable [phone] Encounter Details Date Type Department Care Team (Late st Contact Info) Description 06/18/2022 Historic Encounter [facility] Radiology 1 [place] [address] Alberto Schwab MD [facility] [place] [address] Social History Tobacco Use Types Packs/Day Years [...] Description 01/15/2025 2:45 PM EDT Office Visit [facility] - [place] [address] [place] [address] Jayla Ontiveros MD [address] [place] [address] 09/19/2025 2:30 PM EST Appointment [facility] Breast Care [address] [place] [address] documented as of this encounter Procedures Procedure Name Priority Date/Time Associated Diagnosis Comments XR CHEST 1 VIEW PORTABLE / BEDSIDE STAT 06/18/2022 12:20 PM EDT RESPIRATORY PANEL PCR ([facility] BKR DATA CONV) Routine 06/18/2022 10:38 AM EDT STREP A/C/G PCR Routine 06/18/2022 10:38 AM EDT documented in this encounter Results * XR chest 1 view portable / bedside (06/18/2022 12:20 PM EDT) Anatomical Region Laterality Modality X-Ray 06/18/2022 12:2 0 PM EDT Narrative 06/18/2022 5:28 PM EDT PORTABLE CHEST ?? HISTORY: Cough. COMPARISON: 19 Mar 2019. FINDINGS: The cardiac silhouette is normal in size. Left subclavian pacemaker is present. The lungs are clear. There is no pneumothorax. The osseous structures are unremarkable. IMPRESSION: No acute cardiopulmonary process. Images reviewed, interpreted, and dictated by Alberto Schwab MD Procedure Note Alberto Schwab MD - 02/22/2023 PORTABLE CHEST HISTORY: Cough. COMPARISON: 19 Mar 2019. FINDINGS: The cardiac silhouette is normal in size. Left subclavian pacemaker is present. The lungs are clear. There is no pneumothorax. The osseous structures are unremarkable. IMPRESSION: No acute cardiopulmonary process. Images reviewed, interpreted, and dictated by Alberto Schwab MD Alberto Schwab MD IMG DIAGNOSTIC IMAGING ORDERAB LES Final Result * (ABNORMAL) RESPIRATORY PANEL PCR ([facility] BKR DATA CONV) (06/18/2022 10:38 AM EDT) Pathologist [facility] Reason for Testing PUI Clinically Indicated 06/18/2022 2:33 PM EDT First Test No 06/18/2022 2:33 PM EDT Employed in Healthcare No 2:33 PM EDT Symptomatic as defined by CDC Yes 06/18/2022 2:33 PM EDT Resident in congregate setting No 06/18/2022 2:33 PM EDT No 06/18/2022 2:33 PM EDT Hospitalized No 06/18/2022 2:33 PM EDT ICU No 06/18/2022 2:33 PM EDT Adenovirus Not Detected Not Detected 06/18/2022 4:01 PM EDT Coronavirus HKU1 Not Detected Not Detected 06/18/2022 4:01 PM EDT Coronavirus NL63 Not Detected Not Detected 06/18/2022 4:01 PM EDT Coronavirus 229E Not Detected Not Detected 06/18/2022 4:01 PM EDT Coronavirus OC43 Not Detected Not Detected 06/18/2022 4:01 PM EDT Humanmetapneumovirus Not Detected Not Detected 06/18/2022 4:01 PM EDT Rhinovirus/Enterovirus Not Detected Not Detected 06/18/2022 4:01 PM EDT Influenza A Not Detected Not Detected 06/18/2022 4:01 PM EDT Influenza A H1 Not Detected Not Detected 06/18/2022 4:01 PM EDT Influenza A 2009 H1N1 Not Detected Not Detected 06/18/2022 4:01 PM EDT Influenza A H3 Not Detected Not Detected 06/18/2022 4:01 PM EDT Influenza B Not Detected Not Detected 06/18/2022 4:01 PM EDT Parainfluenza 1 Not Detected Not Detected 06/18/2022 4:01 PM EDT Parainfluenza 2 Not Detected Not Detected 06/18/2022 4:01 PM EDT Parainfluenz a3 Not Detected Not Detected 06/18/2022 4:01 PM EDT Parainfluenza 4 Not Detected Not Detected 06/18/2022 4:01 PM EDT Respiratory Syncytial Virus Not Detected Not Detected 06/18/2022 4:01 PM EDT Bordatella pertussis Not Detected Not Detected 06/18/2022 4:01 PM EDT Chlamydia pneumoniae Not Detected Not Detected 06/18/2022 4:01 PM EDT Mycoplasma pneumoniae Not Detected Not Detected 06/18/2022 4:01 PM EDT Bordatella parapertussis Not Detected Not Detected 06/18/2022 4:01 PM EDT SARS-CoV-2 ([id number]) Detected(A) Not Detected 06/18/2022 4:01 PM EDT Comment: CALLED TO:rickey bah DATE/TIME CALLED:_06/18/2022 12:01:33 EDT READ BACK AND VERIFIED:_yes CALLED BY: _toTesting was performed with RT-PCR methodology using the [place] Respiratory Panel 2.1 which has FDA [place] approval for SARS-CoV-2 testing. ??Negative results do not preclude infection with the SARS-CoV-2 virus and should not be used as the sole basis of patient treatment or public health decisions. Negative results must be considered in the context of an individual's recent exposures, history, and presence of clinical signs/symptoms. Follow-up testing should be performed according to the current CDC recommendations. 06/18/2022 10:3 8 AM EDT 06/18/2022 3:59 PM EDT [facility] Historical Provider BODY FLUIDS AND STOOLS ORDERABLES Final Result [facility] [address] [phone] * Strep A/C/G PCR (06/18/2022 10:38 AM EDT) Group A Strep PCR Negative Negative 06/18/2022 3:58 PM EDT Group C/G Strep PCR Negative Negative 06/18/2022 3:58 PM EDT Lot Number [id number] 06/18/2022 3:58 PM EDT Internal QC Result PASS 06/18/2022 3:58 PM EDT Expiration Date. [id number] 06/18/2022 3:58 PM EDT Throat Swab 06/18/2022 10:3 8 AM EDT 06/18/2022 2:43 PM EDT [facility] Historical Provider MICROBIOLOGY - GENERAL ORDERABLES Final Result [facility] 1 [place] [address], [facility] [phone] documented in this encounter Visit Diagnoses Not on filedocumented in this encounter Care Teams Obstetrician/Gynecologist Relationship Specialty Start Date End Date Komal Méndez APRN PCP - General Primary Care 09/07/22 01/03/24 Steven Marcelo MD [address] [facility] [address] [place] [address] Surgeon General Surgery 09/07/22 Jayla Ontiveros MD [address] [facility] [address] [place] [address] Medical Oncologist Hematology and Oncology 09/07/22 documented as of this encounter
--- OUTSIDE RECORDS SUMMARY | 2024-10-05 17:16 | XMS_ITS | Encounter Summary ---
Author Organization [employer] Address [address] [place] [address] Care Team Providers Care Rn Advice Name Role Phone [place] BaseIreneh Nick ROSS Primary Care Provider + [phone] Steven Marcelo MD Unavailable [phone] Jayla Ontiveros MD Unavailable [phone] Modesta Valadez RN Unavailable Unavailable Suzanne Mora APRN Primary Care Provider [phone] Encounter Details Date Type Department Care Team (Late st Contact Info) Description 09/14/2022 Outside Orders [facility] Central Scheduling 1 [place] [address] Steven Marcelo MD [address] [place] [address] Malignant neoplasm of left female breast, unspecified estrogen receptor status, unspecified site of breast (HCC) (Primary Dx) Social History Tobacco Use [...] Description 01/15/2025 2:45 PM EDT Office Visit [facility] - [place] [address] [place] [address] Jayla Ontiveros MD [address] [facility] [address] [place] [address] 09/19/2025 2:30 PM EST Appointment [facility] Breast [facility] [address] [facility] [address] [place] [address] documented as of this encounter Visit Diagnoses Diagnosis Malignant neoplasm of left female breast, unspecified estrogen receptor status, unspecified site of breast (HCC)- Primary documented in this encounter Care Teams Rn Advice Relationship Specialty Start Date End Date Komal Méndez APRN PCP - General Primary Care 09/07/22 01/03/24 Suzanne Mora, CODY [address] [facility] [address] [place] [address] PCP - General Family Medicine 01/04/24 Steven Marcelo MD [address] [facility] [address] [place] [address] Surgeon General Surgery 09/07/22 Jayla Ontiveros MD [address] [facility] [address] [place] [address] Medical Oncologist Hematology and Oncology 09/07/22 Rory, Modesta Walsh, RN Nurse Navigator 03/03/23 03/20/24 documented as of this encounter
--- OUTSIDE RECORDS SUMMARY | 2024-10-05 17:16 | XMS_ITS | Encounter Summary ---
Author Organization [employer] Address [address] [place] [address] Care Team Providers Care Gear Room Keeper Name Role Phone Komal Méndez APRN Primary Care Provider + [phone] Steven Marcelo MD Unavailable [phone] Jayla Ontiveros MD Unavailable [phone] Encounter Details Date Type Department Care Team (Late st Contact Info) Description 09/27/2022 Orders Only [facility] - [address] [place] [address] Osvaldo Flood MD [address] [facility] [address] [place] [address] Malignant neoplasm of lower-inner quadrant [...] as of this encounter Progress Notes * Osvaldo Flood MD - 09/27/2022 8:18 AM EST ERY TECHNICIAN documented in this encounter Plan of Treatment Upcoming Encounters Date Type Department Care Team (Late st Contact Info) Description 01/15/2025 2:45 PM EDT Office Visit [facility] - [address] [place] [address] Jayla Ontiveros MD [address] [facility] [address] [place], [place] [address] 09/19/2025 2:30 PM EST [facility]ointment [facility] [address] [place] [address] documented as of this encounter Visit Diagnoses Diagnosis Malignant neoplasm of lower-inner quadrant of left breast in female, estrogen receptor positive (HCC)- Primary documented in this encounter Care Teams Gear Room Keeper Relationship Specialty Start Date End Date Komal Méndez, CODY PCP - General Primary Care 09/07/22 01/03/24 Steven Marcelo MD [address] [facility] [address] [place] [address] Surgeon General Surgery 09/07/22 Jayla Ontiveros MD [address] [facility] [address] [place], [place] [address] Medical Oncologist Hematology and Oncology 09/07/22 documented as of this encounter
--- OUTSIDE RECORDS SUMMARY | 2024-10-05 17:16 | XMS_ITS | Encounter Summary ---
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 Procedures NJ BX/REMV,LYMPH NODE,DEEP AXILL [place] MASTECTOMY, PARTIAL LUMPECTOMY, BREAST, WITH SENTINEL LYMPH NODE BIOPSY Steven Marcelo MD [address] [place] [address] Phone: tel: fax: Referral ID Status Reason Start Date Expiration Date Visits Re quested Visits Authorized [id number] 08/04/2022 1 1 Encounter Details Date Type Department Care Team (Latest Contact Info) Description 08/17/2022 9:30 AM EDT - 08/17/2022 12:20 PM EDT Hospital Encounter [facility] Surgery Department [address] [place] [address] Steven Marcelo MD [address] [place] [address] Discharge Disposition: Home or Self Care Social [...] 08/17/2022 07/07/2023 documented as of this encounter Miscellaneous Notes * Op Note - Steven Marcelo MD - 08/18/2022 1:15 PM EDT DATE OF PROCEDURE: 08/17/2022 PREOPERATIVE DIAGNOSIS: Left breast cancer. POSTOPERATIVE DIAGNOSIS: Left breast cancer. PROCEDURES PERFORMED: 1. Left needle localized partial mastectomy. 2. Left axillary sentinel lymph node biopsy. CURING PRESS OPERATOR: Roque Shaffer PA-C. ANESTHESIA: General. ESTIMATED BLOOD LOSS: Minimal. COMPLICATIONS: None. OPERATIVE INDICATION: Ms. Carvajal was referred to sd for surgical evaluation of a newly diagnosed invasive left breast cancer. She requested breast conservation surgery and after the risks and benefits of this operative intervention were explained to her, she wished to proceed. OPERATIVE FINDINGS: 1. She has a small residual breast cancer needle localized in the left. 2. A single deep axillary sentinel lymph node was removed and sent to pathology. OPERATIVE DESCRIPTION: After obtaining informed consent, Ms. Carvajal was taken to the operating room, placed in the supine position. General anesthesia was induced. Her left breast was prepped and draped in usual sterile fashion. Attention was turned to the needle localization wire. A small skin incision was made adjacent to the wire and dissection down to the breast. Hemostasis was achieved using electrocautery. Electrocautery was then used to excise the breast tissue surrounding the needle localization wire circumferentially and with adequate margins. The specimen was removed and oriented with short stitch superiorly and long stitch laterally. This was further marked with black ink deep. It was passed off and sent to the Breast Center for specimen mammography. Intraoperative confirmation confirmed that the residual abnormality was contained within the specimen. Meticulous hemostasis was ensured using electrocautery. Attention was then turned to the left axilla where the gamma probe was used to identify the area of greatest uptake. A small skin incision was made overlying that area and dissection up into the axillary tissue was achieved using electrocautery. Next, the gamma probe was used to identify a single deep axillary sentinel lymph node. It was removed using electrocautery and surgical clips. This was passed off and sent to pathology. Meticulous hemostasis was ensured. Next, both skin incisions were closed in 2 layers followed by Dermabond. All sponge, needle, and instrument counts were correct at the end of the procedure. There were no complications. Ms. Carvajal tolerated the procedure well. Finally Ms. Carvjaal was extubated, taken to the PACU in stable condition. /[id number] MD RONDA Low/AQ / RONDA / AQS /[id number] CC: [facility] LEAD documented in this encounter Plan of Treatment Upcoming Encounters Date Type Department Care Team (Late st Contact Info) Description 01/15/2025 2:45 PM EDT Office Visit [facility] - [address] [facility] [facility] [address] [place] [address] Jayla Ontiveros MD [address] [place] [address] 09/19/2025 2:30 PM EST Appointment [address] [place] [address] documented as of this encounter Procedures Procedure Name Priority Date/Time Associated Diagnosis Comments NJ BX/REMV,LYMPH NODE,DEEP AXILL 08/17/2022 9:53 AM EDT 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
--- OUTSIDE RECORDS SUMMARY | 2024-10-05 17:16 | XMS_ITS | Encounter Summary ---
Author Organization [employer] i[employer] Address [address] [place] [address] Care Team Providers Care Wind Project Manager Name Role Phone Unavailable Primary Care Provider Unavailabl e Reason for Referral * Mammography (Routine) - Closed Specialty Diagnoses / Procedures Referred By Jaswinder kan Referred To Contact Diagnoses Malignant neoplasm of left female breast, unspecified estrogen receptor status, unspecified site of breast (HCC) Procedures US pathology localization breast left Steven Marcelo MD Phone: tel: fax: Referral ID Status Reason Start Date Expiration Date Visits Re quested Visits Authorized [id number] Closed 04/15/2023 10/12/2023 1 1 Reason for Visit * Auth/Cert Specialty Diagnoses / Procedures Referred By Jaswinder kan Referred To Contact Diagnoses 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 Procedures [place] BX/REMV,LYMPH NODE,DEEP AXILL [place] MASTECTOMY, PARTIAL LUMPECTOMY, BREAST, WITH SENTINEL LYMPH NODE BIOPSY Steven Marcelo MD [address] [address] Phone: tel: fax: Referral ID Status Reason Start Date Expiration Date Visits Re quested Visits Authorized [id number] 08/04/2022 1 1 Encounter Details Date Type Department Care Team (Latest Contact Info) Description 08/17/2022 8:00 AM EDT Hospital Encounter [facility] [address] [facility] [address] [place] [address] Steven Marcelo MD [address] [facility] [address] [place] [address] Malignant neoplasm of left female [...] Description 01/15/2025 2:45 PM EDT Office Visit [facility] - [address] [facility] [address] [place] [address] Jayla Ontiveros MD [address] [facility] 300 [place] [address] 09/19/2025 2:30 PM EST Appointment [facility] [address] [facility] [address] [place] [address] documented as of this encounter Procedures Procedure Name Priority Date/Time Associated Diagnosis Comments US PATHOLOGY LOCALIZATION BREAST LEFT Routine 08/17/2022 10:21 AM EDT Malignant neoplasm of left female breast, unspecified estrogen receptor status, unspecified site of breast (HCC) documented in this encounter Results * US pathology localization breast left (08/17/2022 10:21 AM EDT) Anatomical Region Laterality Modality Breast Left Mammography 08/17/2022 12:1 4 PM EDT Impressions 04/30/2023 10:29 AM EDT Successful needle localization of the left breast. RECOMMENDATION: Left digital diagnostic mammogram in 6 months. Sheron Carvajal : 1950 Narrative 04/30/2023 10:29 AM EDT Sheron Carvajal : 1950 PROCEDURE: Left [...] resected. Procedure Note Romaine Rivas MD - 04/30/2023 Sheron Carvajal : 1950 PROCEDURE: Left breast [...]
--- OUTSIDE RECORDS SUMMARY | 2024-10-05 17:16 | XMS_ITS | Encounter Summary ---
Author Organization [employer] Address [address] [place] [address] Care Team Providers Care Electronic Wirer Name Role Phone Unavailable Primary Care Provider Unavailabl e Reason for Referral * Nuclear Medicine (Routine) - Closed Specialty Diagnoses / Procedures Referred By Contac t Referred To Contact Diagnoses Carcinoma of lower-outer quadrant of female breast, left (HCC) Procedures NM sentinel node study (injection only) Steven Marcelo MD [address] [place] [address] Phone: tel: fax: Referral ID Status Reason Start Date Expiration Date Visits Re quested Visits Authorized [id number] Closed 08/06/2022 02/02/2023 1 1 Reason for Visit * Auth/Cert Specialty Diagnoses / Procedures Referred By Contac t Referred To Contact Diagnoses 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 Procedures [place] BX/REMV,LYMPH NODE,DEEP AXILL [place] MASTECTOMY, PARTIAL LUMPECTOMY, BREAST, WITH SENTINEL LYMPH NODE BIOPSY Steven Marcelo MD [address] [place] [address] Phone: tel: fax: Referral ID Status Reason Start Date Expiration Date Visits Re quested Visits Authorized [id number] 08/04/2022 1 1 Encounter Details Date Type Department Care Team (Latest Contact Info) Description 08/17/2022 8:00 AM EDT - 08/17/2022 8:59 AM EDT Hospital Encounter [facility] Nuclear Medicine Imaging [address] [place] [address] Steven Marcelo MD [address] [facility] 101 [place] [address] Carcinoma of lower-outer quadrant of female breast, left (HCC) Discharge Disposition: Home or Self Care [...] Description 01/15/2025 2:45 PM EDT Office Visit [facility] - [address] [facility] [address] [place] [address] Jayla Ontiveros MD [address] [place], [place] [id number] 09/19/2025 2:30 PM EST Appointment [facility] Breast [facility] [address] [facility] [address] [place] [address] documented as of this encounter Procedures Procedure Name Priority Date/Time Associated Diagnosis Comments NM SENTINEL NODE STUDY (INJECTION ONLY) Routine 10/06/2022 8:40 AM EST Carcinoma of lower-outer quadrant of female breast, left (HCC) documented in this encounter Results * NM sentinel node study (injection only) (10/06/2022 8:40 AM EST) Anatomical Region Laterality Modality Nuclear Medicine 08/17/2022 10:2 1 AM EDT Impressions 10/06/2022 8:42 AM EST [place] node injection of the left breast as discussed above. Images reviewed, interpreted, and dictated by Dr. Alberto Schwab. Transcribed by Germán Galindo PA-C. Narrative 10/06/2022 8:42 AM EST SHERON CARVAJAL : 1950 SENTINEL NODE INJECTION HISTORY: Left breast neoplasm. ATTENDING PHYSICIAN: Dr. Shcwab PHYSICIAN CHIEF CATALYST OPERATOR: Germán Galindo PA-C FINDINGS: After informed consent was obtained and time-out procedure performed, approximately 1.0 mCi of technetium Lymphoseek was injected intradermally into the left breast. Injections were performed in a periareolar fashion in each quadrant of the breast. No films were obtained during this procedure. The patient tolerated the procedure with no immediate complication. Procedure Note Alberto Schwab MD - 10/06/2022 SHERON CARVAJAL : 1950 SENTINEL NODE INJECTION HISTORY: Left breast neoplasm. ATTENDING PHYSICIAN: Dr. Schwab PHYSICIAN CHIEF CATALYST OPERATOR: Germán Galindo PA-C FINDINGS: After informed consent was obtained and time-out procedure performed, approximately 1.0 mCi of technetium Lymphoseek was injected intradermally into the left breast. Injections were performed in a periareolar fashion in each quadrant of the breast. No films were obtained during this procedure. The patient tolerated the procedure with no immediate complication. IMPRESSION: [place] node injection of the left breast as discussed above. Images reviewed, interpreted, and dictated by Dr. Alberto Schwab. Transcribed by Germán Galindo PA-C. us Steven Marcelo MD IMShannon NM ORDERABLES Final Resu lt documented in this encounter Visit Diagnoses Diagnosis Carcinoma of lower-outer quadrant of female breast, left (HCC) documented in this encounter
--- OUTSIDE RECORDS SUMMARY | 2024-10-05 17:16 | XMS_ITS | Encounter Summary ---
Author Organization [employer] Address [address] [place] [address] Care Team Providers Care Roller Turner Name Role Phone Irene Méndezh Nick ROSS Primary Care Provider + [phone] Steven Marcelo MD Unavailable [phone] Jayla Ontiveros MD Unavailable [phone] Modesta Valadez RN Unavailable Unavailable Suzanne Mora APRN Primary Care Provider [phone] Reason for Referral * Nuclear Medicine (Routine) - Closed Specialty Diagnoses / Procedures Referred By Jaswinder t Referred To Contact Diagnoses Carcinoma of lower-outer quadrant of female breast, left (HCC) Procedures NM sentinel node study (injection only) Steven Marcelo MD [address] [place] [address] Phone: tel: fax: Referral ID Status Reason Start Date Expiration Date Visits Re quested Visits Authorized [id number] Closed 08/06/2022 02/02/2023 1 1 Encounter Details Date Type Department Care Team (Late st Contact Info) Description 08/06/2022 Outside Orders [facility] Central Scheduling [address] [place] [address] Steven Marcelo MD [address] [place] [address] Carcinoma of lower-outer quadrant of female breast, left (HCC) (Primary Dx) Social History Tobacco Use [...] Description 01/15/2025 2:45 PM EDT Office Visit [facility] - [facility] [address] [facility] [address] [place] [address] Jayla Ontiveros MD [address] [facility] [address] [place], [place] [id number] 09/19/2025 2:30 PM EST Appointment [facility] [address] [facility] [address] [place] [address] documented as of this encounter Results * NM sentinel node study (injection only) (10/06/2022 8:40 AM EST) Anatomical Region Laterality Modality Nuclear Medicine 08/17/2022 10:2 1 AM EDT Impressions 10/06/2022 8:42 AM EST [place] node injection of the left breast as discussed above. Images reviewed, interpreted, and dictated by Dr. Alberto Schwab. Transcribed by Germán Galindo PA-C. Narrative 10/06/2022 8:42 AM EST SHERON CARVAJAL : 1950 SENTINEL NODE INJECTION HISTORY: Left breast neoplasm. ATTENDING PHYSICIAN: Dr. Schwab PHYSICIAN PHARMACY TECHNICIAN TRAINEE: Germán Galindo PA-C FINDINGS: After informed consent [...] breast neoplasm. ATTENDING PHYSICIAN: Dr. Schwab PHYSICIAN PHARMACY TECHNICIAN TRAINEE: Germán Galindo PA-C FINDINGS: After informed consent was obtained and time-out procedure performed, approximately 1.0 mCi of technetium Lymphoseek was injected intradermally into the left breast. Injections were performed in a periareolar fashion in each quadrant of the breast. No films were obtained during this procedure. The patient tolerated the procedure with no immediate complication. IMPRESSION: [place] node injection of the left breast as discussed above. Images reviewed, interpreted, and dictated by Dr. Alberto Schwab. Transcribed by Germán Galindo PA-C. us Steven Marcelo MD IM NM ORDERABLES Final Resu lt documented in this encounter Visit Diagnoses Diagnosis Carcinoma of lower-outer quadrant of female breast, left (HCC)- Primary Carcinoma of lower-outer quadrant of female breast, left (HCC) documented in this encounter Care Teams Roller Turner Relationship Specialty Start Date End Date Komal Méndez APRN PCP - General Primary Care 09/07/22 01/03/24 Suzanne Mora APRN [address] [facility] [address] [place] [address] PCP - General Family Medicine 01/04/24 Steven Marcelo MD [address] [facility] [address] [place] [address] Surgeon General Surgery 09/07/22 Jayla Ontiveros MD [address] [facility] [address] [place] [address] Medical Oncologist Hematology and Oncology 09/07/22 Rory, Modesta Walsh, RN Nurse Navigator 03/03/23 03/20/24 documented as of this encounter
--- OUTSIDE RECORDS SUMMARY | 2024-10-05 17:16 | XMS_ITS | Encounter Summary ---
Author Organization [employer] Address [address] [place] [address] Care Team Providers Care Manager Garden Name Role Phone Komal Méndez APRN Primary Care Provider + [phone] Steven Marcelo MD Unavailable [phone] Jayla Ontiveros MD Unavailable [phone] Reason for Visit * Reason Comments Follow-up Encounter Details Date Type Department Care Team (Late st Contact Info) Description 10/07/2022 4:30 PM EST Office Visit [facility] [address] [facility] [address] [place] [address] Malina Young MD [address] [place], [place] [id number] Steven Marcelo MD [address] [facility] 101 [place] [address] Post-operative state (Primary Dx) Social History Tobacco Use Types [...] Progress Notes * Steven Marcelo MD - 10/07/2022 4:30 PM EST Subjective: Sheron Carvajal is a 71 y.o. female. Chief Complaint Patient presents with ??? Follow-up I have reviewed and/or updated the following: HPI Ms. Carvajal is back today for a wound check following completion of her adjuvant radiation therapy to the left breast. There was concern of some possible wound dehiscence. She states that she is otherwise doing very well. Review of Systems Skin: Positive for color change and wound. All other systems reviewed and are negative. Objective: There were no vitals taken for this visit. Physical Exam examination of the left breast reveals well-healing lumpectomy incisions with some mild skin changes from her recent radiation treatments. There is no evidence of wound breakdown. Thereis no evidence of infection. The incision is completely healed. Assessment: 1. Post-operative state Plan: I am pleased that she is recovering well. There is no need for any surgical intervention. Her lumpectomy incision has healed nicely. I will see her back with her baseline left-sided mammogram in February. No follow-ups on file. MASKER documented in this encounter Plan of Treatment Upcoming Encounters Date Type Department Care Team (Late st Contact Info) Description 01/15/2025 2:45 PM EDT Office Visit [facility] - [place] [address] [address] [address] [facility] [address] [place] [address] 09/19/2025 2:30 PM EST Appointment [facility] Breast [facility] [address] [facility] [address] [place] [address] documented as of this encounter Visit Diagnoses Diagnosis Post-operative state- Primary Other postprocedural status documented in this encounter Care Teams Manager Garden Relationship Specialty Start Date End Date Komal Méndez, CODY PCP - General Primary Care 09/07/22 01/03/24 Steven Marcelo MD [address] [facility] [address] [place] [address] Surgeon General Surgery 09/07/22 Jayla Ontiveros MD [address]70 [facility] 300 [place] [address] Medical Oncologist Hematology and Oncology 09/07/22 documented as of this encounter
--- OUTSIDE RECORDS SUMMARY | 2024-10-05 17:16 | XMS_ITS | Encounter Summary ---
Author Organization [employer] [facility] [facility] Address [address] [place] [address] Care Team Providers Care Visual Effects Editor Name Role Phone Komal Méndez CODY Primary Care Provider + [phone] Steven Marcelo MD Unavailable [phone] Jayla Ontiveros MD Unavailable [phone] Reason for Visit * Reason Comments Radiation weekly status check / left partial breast 11/11; 600/3000 cGy Encounter Details Date Type Department Care Team (Latest Contact Info) Description 09/21/2022 3:[address] [facility] Hospital Encounter [facility] - [email or web address] [address] [place] [address] Praveena Abad MD [address] [facility] [address] [place] [address] Malignant neoplasm of lower-inner quadrant [...] Sign Reading Time Taken Comments Blood Pressure 143/84 09/21/2022 4:08 PM EST Pulse 63 09/21/2022 4:08 PM EST Temperature 36.6 ??C (97.9 ??F) 09/21/2022 4:08 PM ES T Respiratory Rate 16 09/21/2022 4:08 PM EST Oxygen Saturation 100% 09/21/2022 4:08 PM EST RA Inhaled Oxygen Concentration - - Weight 59.9 kg (132 lb 0.9 oz) 09/21/2022 4:08 P M EST Height 170.1 cm (5' 6.97 ) 09/21/2022 4:08 PM ES T Body Mass Index 20.7 09/21/2022 4:08 PM EST documented in this encounter Medications at Time [...] daily for 360 doses. 90 tablet 3 09/01/2022 07/07/2023 lisinopriL (PRINIVIL,ZESTRIL ) 40 MG tabletIndications :Malignant neoplasm of lower-inner quadrant of left breast in female, estrogen receptor positive (HCC),Asymptomati c menopausal state Take by mouth. 02/15/2024 oxyCODONE-acetami nophen (PERCOCET) 5-325 mg per tablet Take 1 tablet by mouth. 08/17/2022 07/07/2023 documented as of this encounter Progress Notes * Praveena Abad MD - 09/21/2022 3:45 PM EST RADIATION ONCOLOGY TREATMENT NOTE Patient: Sheron Carvajal : 1950 Date: 09/21/2022 Reason for Visit: On treatment visit. Radiation Oncology Treatment Prescription: 3000 cGy in 5 fractions to the right partial breast Number of Fractions Completed: Total Dose: 600 cGy Chemotherapy: None Subjective: Ms. Carvajal is doing well. She tolerated her first fraction without difficulty. Vitals: Vitals: 09/21/22 1608 BP: (!) 143/84 Pulse: 63 Resp: 16 Temp: 97.9 ??F (36.6 ??C) TempSrc: Oral SpO2: 100% Weight: 59.9 kg (132 lb 0.9 oz) Height: 1.701 m (5' 6.97 ) Pain Assessment Pain Score: 0-No pain Physical Exam: General: AO x 3, NAD HEENT: PER, EOMI, no scleral icterus noted Respiratory: Breathing symmetric, non labored Extremities: No clubbing, cyanosis, or edema Skin: No rashes or lesions visible or palpable Neuro: Normal speech, no focal deficits Performance Status: ECOG 0 Labs: No visits with results within 1 Week(s) from this visit. Latest known visit with results is: No results found for any previous visit. All labs have been reviewed. Assessment / Plan: [x] Stable [x] Tolerating therapy [] Worsening [] Mass decreasing [] Mass progressing [] Other Discussion: I counseled the patient on routine skin care including applying Aquaphor twice daily. We will have her pacemaker checked at the end of treatment to ensure it is still in working order. Plan of Care for Pain: Patient has no complaints of pain Radiation: Continue radiation as planned Electronically approved by PRAVEENA ABAD MD on 09/21/2022 at 4:33 PM EST. TECHNICIAN documented in this encounter Plan of Treatment Upcoming Encounters Date Type Department Care Team (Late st Contact Info) Description 01/15/2025 2:45 PM EDT Office Visit [facility] - [place] [address] [place] [address] Jayla Ontiveros MD [address] [facility] [address] [place], [place] [id number] 09/19/2025 2:30 PM EST Appointment [facility] Breast [facility] [address] [facility] [address] [place] [address] documented as of this encounter Visit Diagnoses Diagnosis Malignant neoplasm of lower-inner quadrant of left breast in female, estrogen receptor positive (HCC)- Primary documented in this encounter Care Teams Visual Effects Editor Relationship Specialty Start Date End Date Komal Méndez Nick, ASSOCIATE JUSTICE PCP - General Primary Care 09/07/22 01/03/24 Steven Marcelo MD [address] [facility] [address] [place] [address] Surgeon General Surgery 09/07/22 Jayla Ontiveros MD [address] [facility] [address] [place] [address] Medical Oncologist Hematology and Oncology 09/07/22 documented as of this encounter
--- OUTSIDE RECORDS SUMMARY | 2024-10-05 17:16 | XMS_ITS | Encounter Summary ---
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 Procedures ME BX/REMV,LYMPH NODE,DEEP AXILL ME MASTECTOMY, PARTIAL LUMPECTOMY, BREAST, WITH SENTINEL LYMPH NODE BIOPSY Steven Marcelo MD [address] [place] [phone] Phone: tel: fax: Referral ID Status Reason Start Date Expiration Date Visits Re quested Visits Authorized [id number] 08/04/2022 1 1 Encounter Details Date Type Department Care Team (Late st Contact Info) Description 08/17/2022 10:42 AM EDT - 08/17/2022 12:24 PM EDT Surgery [facility] Surgery Department [address] [place] [address] Steven Marcelo MD [address] [place] [address] LUMPECTOMY, BREAST, WITH SENTINEL LYMPH NODE BIOPSY WITH NEEDLE LOC Social History Tobacco Use Types Packs/Day Years [...] 2. Left axillary sentinel lymph node biopsy. BARREL COATER: Roque Shaffer PA-C. ANESTHESIA: General. ESTIMATED BLOOD LOSS: Minimal. COMPLICATIONS: None. OPERATIVE INDICATION: Ms. Carvajal was referred to co for surgical evaluation of a newly diagnosed [...] Carvajal tolerated the procedure well. Finally Ms. Carvajal was extubated, taken to the PACU in stable condition. /[id number] MD RONDA Low/AQ / RONDA / AQS /[id number] CC: [facility] EYARD SUPERVISOR documented in this encounter Plan of Treatment Upcoming Encounters Date Type Department Care Team (Late st Contact Info) Description 01/15/2025 2:45 PM EDT Office Visit [facility] - [address] [facility] [address] [facility] [address] [place] [address] Jayla Ontiveros MD [address] [place] [address] 09/19/2025 2:30 PM EST Appointment [address] [place] [address] documented as of this encounter Procedures Procedure Name Priority Date/Time Associated Diagnosis Comments ME BX/REMV,LYMPH NODE,DEEP AXILL 08/17/2022 9:53 AM EDT 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
--- OUTSIDE RECORDS SUMMARY | 2024-10-05 17:16 | XMS_ITS | Encounter Summary ---
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 Procedures [place] BX/REMV,LYMPH NODE,DEEP AXILL [place] MASTECTOMY, PARTIAL LUMPECTOMY, BREAST, WITH SENTINEL LYMPH NODE BIOPSY Steven Marcelo MD [address] [place] [phone] Phone: tel: fax: Referral ID Status Reason Start Date Expiration Date Visits Re quested Visits Authorized [id number] 08/04/2022 1 1 Encounter Details Date Type Department Care Team (Latest Contact Info) Description 08/17/2022 9:00 AM EDT - 08/17/2022 9:39 AM EDT Hospital Encounter [facility] Breast Care [address] [facility] [address] [place] [address] Steven Marcelo MD [address] [place] [address] Malignant neoplasm of left female [...] Description 01/15/2025 2:45 PM EDT Office Visit [facility] - [address] [facility] [address] [place] [phone] Jayla Ontiveros MD [address] [facility] [address] [place] [address] 09/19/2025 2:30 PM EST Appointment [facility] Breast [facility] [address] [facility] [address] [place] [address] documented as of this encounter Visit Diagnoses Diagnosis Malignant neoplasm of left female breast, unspecified estrogen receptor status, unspecified site of breast (HCC) documented in this encounter
--- OUTSIDE RECORDS SUMMARY | 2024-10-05 17:16 | XMS_ITS | Encounter Summary ---
Author Organization [employer] Address [address] [place] [address] Care Team Providers Care Lumber Estimator Name Role Phone Irene Méndezh Nick ROSS Primary Care Provider + [phone] Steven Marcelo MD Unavailable [phone] Jayla Ontiveros MD Unavailable [phone] Modesta Valadez RN Unavailable Unavailable Suzanne Mora APRN Primary Care Provider [phone] Encounter Details Date Type Department Care Team (Late st Contact Info) Description 06/18/2022 Transcribed Document [facility] Family Medicine [address] [place] [id number] ProviderNimisha MD [address] [place] [address] Social History Tobacco Use Types Packs/Day Years Used Date Smoking Tobacco: Never Assessed Comments Unknown Sex and Gender Information Value Date Recorded Sex Assigned at Not on file Legal Sex Female 4:30 PM CDT Gender Identity Not on file Sexual Orientation Not on file documented as of this encounter Miscellaneous Notes * Cerner Conversion Note - Historical ProviderMD - 06/18/2022 12:49 PM CDT SARS-CoV-2 (COVID19 PCR) - - Detected 06/18/2022 12:01 06/18/2022 12:49 (TYRON CORTES, EVRE) Reviewed by Provider, No further action required documented in this encounter Plan of Treatment Upcoming Encounters Date Type Department Care Team (Late st Contact Info) Description 01/15/2025 2:45 PM EDT Office Visit [facility] - [address] [place] [phone] Jayla Ontiveros MD [address] [place] [address] 09/19/2025 2:30 PM EST Appointment [facility] Breast Care [address] [place] [address] documented as of this encounter Visit Diagnoses Not on filedocumented in this encounter Care Teams Lumber Estimator Relationship Specialty Start Date End Date Komal Méndez, CODY PCP - General Primary Care 09/07/22 01/03/24 Suzanne Mora, LUMBER TYING MACHINE OPERATOR [address] [place] [phone] PCP - General Family Medicine 01/04/24 Steven Marcelo MD [address] [place] [phone] Surgeon General Surgery 09/07/22 Jayla Ontiveros MD [address] [place] [address] Medical Oncologist Hematology and Oncology 09/07/22 Rory, Modesta Walsh, RN Nurse Navigator 03/03/23 03/20/24 documented as of this encounter
--- OUTSIDE RECORDS SUMMARY | 2024-10-05 17:16 | XMS_ITS | Encounter Summary ---
Author Organization [email or web address] Address [address] [place] [address] Care Team Providers Care Tack Cutter Name Role Phone Komal Méndez CODY Primary Care Provider + [phone] Steven Marcelo MD Unavailable [phone] Jayla Ontiveros MD Unavailable [phone] Reason for Visit * Reason Comments Dysuria Pt co painful burnin g urination that began tuesday Skinpwd Encounter Details Date Type Department Care Team (Late st Contact Info) Description 11/25/2022 6:45 AM EST - 11/25/2022 7:40 AM [facility] Emergency [facility] Emergency Department [address] [place] [phone] [place] [address] Acute UTI (Primary Dx) Discharge Disposition: Home or Self [...] Sign Reading Time Taken Comments Blood Pressure 120/57 11/25/2022 6:42 AM EST Pulse 74 11/25/2022 6:42 AM EST Temperature 37.3 ??C (99.1 ??F) 11/25/2022 6:42 AM ES T Respiratory Rate 18 11/25/2022 6:42 AM EST Oxygen Saturation 97% 11/25/2022 6:42 AM EST Inhaled Oxygen Concentration - - Weight 59.9 kg (132 lb) 11/25/2022 6:42 AM EST Height 170.2 cm (5' 7 ) 11/25/2022 6:42 AM EST Body Mass Index 20.67 11/25/2022 6:42 AM EST documented in this encounter Discharge Instructions * Attachments The following attachments cannot be sent through Care Everywhere. * Urinary Tract Infection Adult (Malaysian) documented in this encounter Medications at Time [...] % Cmpk Take by mouth. 0 23 ycza-RC-rza-epa-FAD -NADH-be-mv 1.5 mg iron- 8.73 mg CpID [...] 07/07/20 23 documented as of this encounter ED Notes * Marbin Mccallum MD - 11/25/2022 7:14 AM EST Chief Complaint Chief Complaint Patient presents with ??? Dysuria Pt co painful burning urination that began tuesday Skinpwd HPI Sheron Carvajal is a 71 y.o. female with has a past medical history of Anemia, Atrial fibrillation (HCC), Chronic kidney disease, H/O tubal ligation (1983), Heart disease, and Hypertension. who ispresenting with pain with urination, urinary frequency. Patient tells me that she has a solitary kidney. Says that she has had these symptoms for the last 2 days. No fevers or systemic symptoms Previous History Past Medical History: Diagnosis Date ??? Anemia ??? Atrial fibrillation (HCC) ??? Chronic kidney disease ??? H/O tubal ligation 1983 ??? Heart disease ??? Hypertension Past Surgical History: Procedure Laterality Date ??? LUMPECTOMY,SENTINAL NODE Left 08/17/2022 Procedure: LUMPECTOMY, BREAST, WITH SENTINEL LYMPH NODE BIOPSY WITH NEEDLE LOC; Surgeon: Steven Marcelo MD; Location: [facility]; Service: General Surgery; Laterality: Left; ??? pace maker 2019 No family history on file. Social History Tobacco Use ??? Smoking status: Never Smoker ??? Smokeless tobacco: Never Used Vaping Use ??? Vaping Use: Never used Substance Use Topics ??? Alcohol use: Not Currently ??? Drug use: Never Allergies Allergen Reactions ??? Nsaids (Non-Steroidal Anti-Inflammatory Drug) Hives Single kidney---functioning at 50% ??? Valdecoxib Current Outpatient Medications Medication Instructions ??? amLODIPine (NORVASC) 5 mg, Oral, Daily ??? amoxicillin-clavulanate (AUGMENTIN) 875-125 mg per tablet 1 tablet, Oral, 2 times daily ??? anastrozole (ARIMIDEX) 1 mg, Oral, Daily ??? apixaban (Eliquis) 2.5 mg Tab tablet Oral ??? cholecalciferol (VITAMIN D3) 125 mcg (5,000 unit) capsule Oral ??? diclofenac sodium-menthoL 1.5-10 % Cmpk Oral ??? Eliquis 5 mg, Oral, 2 times daily ??? fluticasone propionate (Allergy Relief, fluticasone,) 50 mcg/actuation nasal spray 1 spray, Nasal, Daily ??? omlc-GV-woi-tqs-PPX-ODQL-be-mv 1.5 mg iron- 8.73 mg CpID iron ??? lisinopriL (PRINIVIL,ZESTRIL) 40 MG tablet Oral ??? lisinopril, bulk, 100 % Powd Oral ??? metoprolol succinate (TOPROL-XL) 100 MG 24 hr tablet Oral ??? metoprolol succinate (TOPROL-XL) 25 mg, Oral, Daily ??? metoprolol ta-hydrochlorothiaz (LOPRESSOR HCT) 100-25 mg per tablet Oral ??? omega-3s/dha/epa/fish oil/D3 (VITAMIN-D + OMEGA-3 ORAL) Vitamin D ??? ondansetron (ZOFRAN-ODT) 4 MG disintegrating tablet ondansetron 4 mg disintegrating tablet ??? oxyCODONE-acetaminophen (PERCOCET) 5-325 mg per tablet 1 tablet, Oral ROS Negative unless otherwise stated in HPI Physical Exam Patient Vitals for the past 24 hrs: BP Temp Temp src Pulse Resp SpO2 Height Weight 11/25/22 0642 120/57 99.1 ??F (37.3 ??C) Tympanic 74 18 97 % 1.702 m (5' 7 ) 59.9 kg (132 lb) Constitutional: No acute distress, non-toxic. HEENT: Normocephalic, trachea midline. Cardiovascular:Appears well perfused. Pulmonary: No respiratory distress, normal work of breathing, speaking in full sentences. Abdominal: Non-distended. Musculoskeletal: No obvious deformities. Integumentary: Well perfused, no rash. Neuro: Alert and oriented to person, place, time and situation. CN II-XII grossly intact. Psych: Normal affect. Results Labs Reviewed URINALYSIS, REFLEX MICROSCOPIC AND CULTURE IF INDICATED - Abnormal; Notable for the following components: Result Value Clarity, UA Turbid (*) pH, UA 5.5 (*) Leukocytes, UA 500 Severino/uL (*) Protein, UA 1+ (*) Blood, UA 3+ (*) All other components within normal limits URINALYSIS MICROSCOPIC - Abnormal; Notable for the following components: WBC, UA Too Numerous To Count (*) RBC, UA Too Numerous To Count (*) Bacteria, UA 1+ (*) SQUAMOUS EPITHELIAL 21-50 (*) WBC Clumps Present (*) All other components within normal limits URINE CULTURE No orders to display Medical Decision Making Sheron Carvajal is a 71 y.o. with has a past medical history of Anemia, Atrial fibrillation (), Chronic kidney disease, H/O tubal ligation (1983), Heart disease, and Hypertension.who is presenting with dysuria. Differential includes but is not limited to Moody tract infection, cystitis. Patient has signs and symptoms consistent with urinary tract infection. Appears well, nontoxic. Patient's UA consistent with UTI. Urine culture sent. Discharged with a prescription for Keflex. Return precautions discussed, recommended PCP follow-up Procedures Procedures Impression Urinary tract infection Disposition Discharge Marbin Mccallum MD 11/25/22 07[address] [facility] DISPLAY BUILDER documented in this encounter Plan of Treatment Upcoming Encounters Date Type Department Care Team (Late st Contact Info) Description 01/15/2025 2:45 PM EDT Office Visit [facility] - [address] [place] [phone] Jayla Ontiveros MD [address] [facility] [address] [place], [place] [phone] 09/19/2025 2:30 PM EST Appointment [address] [place] [address] documented as of this encounter Procedures Procedure Name Priority Date/Time Associated Diagnosis Comments URINALYSIS, REFLEX MICROSCOPIC AND CULTURE IF INDICATED STAT 11/25/2022 6:57 AM EST URINALYSIS MICROSCOPIC STAT 11/25/2022 6:57 AM EST URINE CULTURE STAT 11/25/2022 6:57 AM EST documented in this encounter Results * (ABNORMAL) Urine Culture (11/25/2022 6:57 AM EST) Result >100,000 CFU Escherichia coli(A) 11/27/2022 10:[address] [facility] Urine URINE SPECIMEN COLLECTION, CLEAN CATCH / Unknown 11/25/2022 6:57 AM EST 11/25/2022 7:07 AM EST Narrative Organism Antibiotic Method Susceptibility Escherichia coli Amikacin <=16: Susceptible Escherichia coli Ampicillin >16: Resistant Escherichia coli Ampicillin + Sulbactam 16/8: Intermediate Escherichia coli Aztreonam <=4: Susceptible Escherichia coli Cefazolin 4: Susceptible Escherichia coli Cefepime <=2: Susceptible Escherichia coli Cefotaxime <=2: Susceptible Escherichia coli Cefoxitin <=8: Susceptible Escherichia coli Ceftazidime <=1: Susceptible Escherichia coli Ceftriaxone <=1: Susceptible Escherichia coli Cefuroxime <=4: Susceptible Escherichia coli Ertapenem <=0.5: Susceptible Escherichia coli Gentamicin <=4: Susceptible Escherichia coli Levofloxacin <=2: Susceptible Escherichia coli Meropenem <=1: Susceptible Escherichia coli Nitrofurantoin <=32: Susceptible Escherichia coli Piperacillin + Tazobactam <=16: Susceptible Escherichia coli Tigecycline <=2: Susceptible Escherichia coli Tobramycin <=4: Susceptible Escherichia coli Trimethoprim + Sulfamethoxazole <=2/38: Susceptible us Jossie Moyer MD MICROBIOLOGY - GENERAL ORDERAB LES Final Result [facility] [address] [place] [address] * (ABNORMAL) Urinalysis Microscopic Only (11/25/2022 6:57 AM EST) WBC, UA Too Numerous To Count(A) None Seen /HPF 11/25/2022 7:07 AM [facility] RBC, UA Too Numerous To Count(A) None Seen /HPF 11/25/2022 7:07 AM [facility] Bacteria, UA 1+(A) Trace, None Seen 11/25/2022 7:07 AM [facility] SQUAMOUS EPITHELIAL 21-50(A) None Seen /HPF 11/25/2022 7:07 AM [facility] Non Squamous Epithelial Cells Present Absent 11/25/2022 7:07 AM [facility] WBC Clumps Present(A) Absent 11/25/2022 7:07 AM [facility] Urine URINE SPECIMEN COLLECTION, CLEAN CATCH / Unknown 11/25/2022 6:57 AM EST 11/25/2022 6:57 AM EST us Jossie Moyer MD URINE ORDERABLES Final Result [facility] [address] [phone] * (ABNORMAL) Urinalysis, Reflex Microscopic and Culture If Indicated (11/25/2022 6:57 AM EST) Color, UA Yellow 11/25/2022 7:07 AM [facility] Clarity, UA Turbid(A) Clear 11/25/2022 7:07 AM [facility] Specific [place], UA 1.011 1.005 - 1.030 11/25/2022 7:07 AM [facility] pH, UA 5.5(L) 6.0 - 8.0 11/25/2022 7:07 AM [facility] Leukocytes, UA 500 Severino/uL(A) Negative 11/25/2022 7:07 AM [facility] Nitrite, UA Negative Negative 11/25/2022 7:07 AM [facility] Protein, UA 1+(A) Negative 11/25/2022 7:07 AM [facility] Glucose, UA Normal Normal 11/25/2022 7:07 AM [facility] Ketones, UA Negative Negative 11/25/2022 7:07 AM [facility] Bilirubin, UA Negative Negative 11/25/2022 7:07 AM [facility] Blood, UA 3+(A) Negative 11/25/2022 7:07 AM [facility] Urobilinogen, UA Normal Normal 11/25/2022 7:07 AM [facility] Specimen Source Urine, Clean Catch 11/25/2022 7:07 AM [facility] Urine URINE SPECIMEN COLLECTION, CLEAN CATCH / Unknown 11/25/2022 6:57 AM EST 11/25/2022 6:57 AM EST us Jossie Moyer MD URINE ORDERABLES Final Result [facility] [address] [place] [address], [facility] [phone] documented in this encounter Visit Diagnoses Diagnosis Acute UTI- Primary Urinary tract infection, site not specified documented in this encounter Care Teams Tack Cutter Relationship Specialty Start Date End Date Komal Méndez APRN PCP - General Primary Care 09/07/22 01/03/24 Steven Marcelo MD [address] [facility] [address] [place] [address] Surgeon General Surgery 09/07/22 Jayla Ontiveros MD [address] [facility] [address] [place] [address] Medical Oncologist Hematology and Oncology 09/07/22 documented as of this encounter
--- OUTSIDE RECORDS SUMMARY | 2024-10-05 17:16 | XMS_ITS | Encounter Summary ---
Author Organization [employer] Address [address] [place] [address] Care Team Providers Care Necktie Maker Name Role Phone Komal Méndez APRN Primary Care Provider + [phone] Steven Marcelo MD Unavailable [phone] Jayla Ontiveros MD Unavailable [phone] Reason for Visit * Reason Comments Breast Cancer FUP s/p sx 08/17/22 Encounter Details Date Type Department Care Team (Latest Contact Info) Description 09/07/2022 2:15 PM EDT - 09/07/2022 2:59 PM EDT Hospital Encounter [facility] - [email or web address] [address] [place] [address] Praveena Abad MD [address] [facility] [address] [place] [address] Malignant neoplasm of lower-inner quadrant [...] Sign Reading Time Taken Comments Blood Pressure 135/87 09/07/2022 2:52 PM EDT Pulse 60 09/07/2022 2:52 PM EDT Temperature 36.6 ??C (97.9 ??F) 09/07/2022 2:52 PM ED T Respiratory Rate 16 09/07/2022 2:52 PM EDT Oxygen Saturation 99% 09/07/2022 2:52 PM EDT RA Inhaled Oxygen Concentration - - Weight 59.9 kg (132 lb 0.9 oz) 09/07/2022 2:52 P M EDT Height 170.1 cm (5' 6.97 ) 09/07/2022 2:52 PM ED T Body Mass Index 20.7 09/07/2022 2:52 PM EDT documented in this encounter Medications [...] Progress Notes * Praveena Abad MD - 09/07/2022 2:15 PM EDT Radiation Oncology Follow Up Evaluation Patient Name: Sheron Carvajal : 1950 Date: 09/07/2022 Referring Physicians: Patient Care Team: Komal Méndez NP as PCP - General (Primary Care) Steven [...] Stage IA (pT1a, pN0(sn), cM0, G1, ER+, NE+, HER2-) - Signed by Praveena Abad MD on 09/07/2022 - Clinical stage from 09/01/2022: Stage IA (cT1a, cN0(sn), cM0, G1, ER+, NE+, HER2-) - Signed by Jayla Ontiveros MD on 09/01/2022 Previous Radiation History: None Cancer History: 07/07/2022: Bilateral mammogram demonstrates 4mm nodule to inner lower quadrant of left breast. 07/19/2022: US-guided biopsy of left breast mass, final pathology consistent with grade 1 invasive ductal carcinoma, ER/NE positive, HER-2/jared negative 08/17/2022: Left breast lumpectomy with sentinel lymph node biopsy, final pathology pT1aN0(sn) History of Present Illness: Ms. Carvajal is a pleasant 71 y.o. year old female. She initially presented to medical attention with an abnormality in the left breast on screening mammogram in June 2022. She was taken for ultrasound- guided core needle biopsy on July 19, 2022 which returned consistent with a well differentiated ER/NE positive invasive ductal carcinoma. She saw Dr. [...] Marcelo on August 17, 2022 for lumpectomy. She presents today for follow-up discussion of her surgical pathology. Interval History: Symptomatically, Ms. Carvajal is doing reasonably well. She does have some postoperative soreness of the left breast but she is healing well. She has some difficulty raising her left arm above her head but is able to do this after some coaching. Regarding her surgical pathology, her lumpectomy demonstrated a well differentiated invasive ductalcarcinoma measuring 5 mm in greatest dimension with negative surgical margins. I do not see any reason why she should not be a candidate for partial breast radiation. Allergies: Allergies Allergen Reactions ??? Nsaids (Non-Steroidal Anti-Inflammatory Drug) Medications: Current Outpatient Medications: ??? amLODIPine (NORVASC) 5 MG tablet, Take 5 mg by mouth daily., Disp: , Rfl: ??? anastrozole (ARIMIDEX) 1 mg tablet, Take 1 tablet (1 mg total) by mouth daily for 360 doses., Disp: 90 tablet, Rfl: 3 ??? Eliquis 5 MG tablet, Take 5 mg by mouth 2 (two) times daily., Disp: , Rfl: ??? lisinopriL (PRINIVIL,ZESTRIL) 40 MG tablet, Take by mouth., Disp: , Rfl: ??? metoprolol succinate (TOPROL-XL) 25 MG 24 hr tablet, Take 25 mg by mouth daily., Disp: , Rfl: Labs: Imaging: No recent relevant imaging to review. Pathology: Surgical pathology from left lumpectomy with sentinel lymph node biopsy dated August 17, 2022 demonstrates: Invasive ductal carcinoma, grade 1, with associated low-grade DCIS Tumor size 5 mm Negative margins Negative sentinel lymph node Performance Status: ECOG 0 Physical Exam: Physical [...] normal. Assessment: Ms. Carvajal is a pleasant 71 y.o. year old female. 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 She is status post lumpectomy with sentinel lymph node biopsy and negative surgical margins. She has seen Dr. Ontiveros who has recommended adjuvant endocrine therapy. I do believe she would benefit from adjuvant radiation to the left breast. Given the location of her tumor, I do not suspect that this will cause any issues with her pacemaker. I described to possible fractionation schedules for partial breast radiation with the patient including 3000 cGy in 5 fractions versus 4005 cGy in 15 fractions. She is primarily interested in the shorter regimen. Should we be unable to meet the pacemaker constraint with VMAT, we may need to switch to the longerfractionation schedule in order to utilize reduced tangents. This was discussed with the patient and she voiced understanding. In order to expedite her treatment, I will plan to move forward with CT simulation today. I will attempt to start her treatments in about 2 weeks so she can have some more time to heal from her surgery and improve her left arm range of motion. A total of 15 minutes was spent at today's visit reviewing patient records, in [id number] consultation with the patient, and in coordination and documentation of care. Plan of Care for Pain: Patient has no complaints of pain Electronically approved by PRAVEENA ABAD MD on 09/07/2022 at 3:18 PM EDT documented in this encounter Plan of Treatment Upcoming Encounters Date Type Department Care Team (Late st Contact Info) Description 01/15/2025 2:45 PM EDT Office Visit [facility] - [address] [place] [address] Jayla Ontiveros MD [address] [place] [address] 09/19/2025 2:30 PM EST Appointment [facility] Breast [facility] [address] [facility] [address] [place] [address] documented as of this encounter Visit Diagnoses Diagnosis Malignant neoplasm of lower-inner quadrant of left breast in female, estrogen receptor positive (HCC)- Primary documented in this encounter Care Teams Necktie Maker Relationship Specialty Start Date End Date Komal Méndez APRN PCP - General Primary Care 09/07/22 01/03/24 Steven Marcelo MD [address] [facility] [address] [place] [address] Surgeon General Surgery 09/07/22 Jayla Ontiveros MD [address] [place] [address] Medical Oncologist Hematology and Oncology 09/07/22 documented as of this encounter
--- OUTSIDE RECORDS SUMMARY | 2024-10-05 17:16 | XMS_ITS | Encounter Summary ---
Author Organization [employer] Address [address] [place] [address] Care Team Providers Care Needle Board Repairer Name Role Phone Komal Méndez APRN Primary Care Provider + [phone] Steven Marcelo MD Unavailable [phone] Jayla Ontiveros MD Unavailable [phone] Encounter Details Date Type Department Care Team (Latest Contact Info) Description 09/07/2022 3:00 PM EDT - 09/07/2022 11:59 PM EDT Hospital Encounter [facility] - [employer] [address] [place] [address] Osvaldo Flood MD [address] [facility] [address] [place] [address] Discharge Disposition: Home or Self Care Social [...] Description 01/15/2025 2:45 PM EDT Office Visit [facility] - [address] [facility] [address] [facility] [address] [place] [address] Jayla Ontiveros MD [address] [place] [address] 09/19/2025 2:30 PM EST Appointment [facility] Breast [address] [place] [address] documented as of this encounter Visit Diagnoses Not on filedocumented in this encounter Care Teams Needle Board Repairer Relationship Specialty Start Date End Date Komal Méndez, PHARMACY SPECIALIST PCP - General Primary Care 09/07/22 01/03/24 Steven Marcelo MD [address] [facility] [address] [place] [address] Surgeon General Surgery 09/07/22 Jayla Ontiveros MD [address] [facility] [address] [place] [address] Medical Oncologist Hematology and Oncology 09/07/22 documented as of this encounter
--- OUTSIDE RECORDS SUMMARY | 2024-10-05 17:16 | XMS_ITS | Encounter Summary ---
Author Organization [employer] Address [address] [place] [address] Care Team Providers Care Lawyers Name Role Phone Komal Méndez APRN Primary Care Provider + [phone] Steven Marcelo MD Unavailable [phone] Jayla Ontiveros MD Unavailable [phone] Modesta Valadez RN Unavailable Unavailable Suzanne Mora APRN Primary Care Provider [phone] Encounter Details Date Type Department Care Team (Late st Contact Info) Description 06/18/2022 Transcribed Document [facility] Family Medicine [address] [place] [address] ProviderNimisha MD [address] [place] [address] Social History Tobacco Use Types Packs/Day Years Used Date Smoking Tobacco: Never Assessed Comments Unknown Sex and Gender Information Value Date Recorded Sex Assigned at Not on file Legal Sex Female 4:30 PM CDT Gender Identity Not on file Sexual Orientation Not on file documented as of this encounter Miscellaneous Notes * Cerner Conversion Note - Historical ProviderMD - 06/18/2022 12:51 PM CDT CR Chest 1 Vw Portable Ordered: 06/18/2022 Modified Reason for Exam: cough 06/18/2022 12:29 06/18/2022 12:51 (TYRON CORTES, EVER) Reviewed by Provider, No further action required Electronically signed by Lili [facility] Conversion Cigarette Making Machine Hopper Feeder Cerner at 02/22/2023 12:02 PM CDT documented in this encounter Plan of Treatment Upcoming Encounters Date Type Department Care Team (Late st Contact Info) Description 01/15/2025 2:45 PM EDT Office Visit [facility] - [place] [address] [place] [address] Jayla Ontiveros MD [address] [place], [place] [id number] 09/19/2025 2:30 PM EST Appointment [facility] Breast Care [address] [place] [address] documented as of this encounter Visit Diagnoses Not on filedocumented in this encounter Care Teams Lawyers Relationship Specialty Start Date End Date Komal Méndez APRN PCP - General Primary Care 09/07/22 01/03/24 Suzanne Mora, [employer] FORMER SUPERVISOR [address] [place] [address] PCP - General Family Medicine 01/04/24 Steven Marcelo MD [address] [place] [address] Surgeon General Surgery 09/07/22 Jayla Ontiveros MD [address] [place] [address] Medical Oncologist Hematology and Oncology 09/07/22 Rory, Modesta Walsh, RN Nurse Navigator 03/03/23 03/20/24 documented as of this encounter
--- OUTSIDE RECORDS SUMMARY | 2024-10-05 17:16 | XMS_ITS | Encounter Summary ---
Author Organization [employer] Address [address] [place] [address] Care Team Providers Care Baccarat Manager Name Role Phone Unavailable Primary Care Provider Unavailabl e Encounter Details Date Type Department Care Team (Late Contact Info) Description 09/01/2022 Orders Only [facility] - [facility] [address] [place] [address] Jayla Ontiveros MD [address] [place] [address] [place], [place] [id number] Social History Tobacco Use Types Packs/Day Years [...] Encounters Date Type Department Care Team (Late Contact Info) Description 01/15/2025 2:45 PM EDT Office Visit [facility] - [facility] [address] [place] [address] Jayla Ontiveros MD [address] [place] [address] [place] [address] 09/19/2025 2:30 PM EST Appointment [address] [place] [address] documented as of this encounter Visit Diagnoses Not on filedocumented in this encounter
--- OUTSIDE RECORDS SUMMARY | 2024-10-05 17:16 | XMS_ITS | Encounter Summary ---
Author Organization [employer] Address [address] [place] [address] Care Team Providers Care Asset Analyst Name Role Phone Irene Swanh Nick ROSS Primary Care Provider + [phone] Steven Marcelo MD Unavailable [phone] Jayla Ontiveros MD Unavailable [phone] Modesta Valadez RN Unavailable Unavailable Suzanne Mora APRN Primary Care Provider [phone] Encounter Details Date Type Department Care Team (Late st Contact Info) Description 06/18/2022 Transcribed Document [facility] [place] [facility] [place] [address] ProviderNimisha MD [address] [place] [address] Social History Tobacco Use Types Packs/Day Years Used Date Smoking Tobacco: Never Assessed Comments Unknown Sex and Gender Information Value Date Recorded Sex Assigned at Not on file Legal Sex Female 4:30 PM CDT Gender Identity Not on file Sexual Orientation Not on file documented as of this encounter Miscellaneous Notes * Cerner Conversion Note - Historical ProviderMD - 06/18/2022 12:24 PM CDT Patient: SHERON CARVAJAL Age: 71 years Sex: Female : 1950 Associated Diagnoses: COVID-19; Cough Author: RAINS, KIM, MARINA MANAGER Basic Information Additional information: Chief Complaint from Nursing Triage Note : Chief Complaint 06/18/2022 10:10 EDT Chief Complaint PtC/o sore throat, cough and chest congestion that began 2 days ago . History of Present Illness The patient presents with cough. The onset was 2 days ago. The course/duration of symptoms is fluctuating in intensity. Character dry. The degree at onset was moderate. The degree at present is none. The exacerbating factor is none. The relieving factor is none. Risk factors consist of coronary artery disease. Prior episodes: none. Therapy today: none. Associated symptoms: sore throat, nasal congestion and chills. Review of Systems Constitutional symptoms: Weakness, fatigue, no fever, no chills, no decreased activity. Skin symptoms: No rash, Eye symptoms: Vision unchanged. ENMT symptoms: Sore throat. Respiratory symptoms: Cough, No shortness of breath, Cardiovascular symptoms: No chest pain, no syncope. Gastrointestinal symptoms: No abdominal pain, no vomiting, no diarrhea. Genitourinary symptoms: No dysuria, Musculoskeletal symptoms: No back pain, Neurologic symptoms: No headache, no dizziness, no altered level of consciousness. Psychiatric symptoms: No anxiety, Endocrine symptoms: No polyuria, Hematologic/Lymphatic symptoms: Bleeding tendency negative, Allergy/immunologic symptoms: No recurrent infections, Health Status Allergies: Allergic Reactions (Selected) No Known Medication Allergies. Medications: (Selected) Documented Medications Documented Eliquis: 5 mg, Oral, BID, 0 Refill(s) Metoprolol Tartrate 25 mg oral tablet: Tab, Oral, BID, 0 Refill(s) Non Formulary Medication: Oral, Daily, 1000 unit, vitamin D, 0 Refill(s) amLODIPine: 5 mg, Oral, Daily, 0 Refill(s) ferrous sulfate: 325 mg, Oral, Daily, 0 Refill(s) lisinopril 10 mg oral tablet: 4 Tab, Oral, Daily, 30 Tab, 0 Refill(s). Immunizations: Per nurse's notes. Menstrual history: Per nurse's notes. Past Medical/ Family/ Social History Medical history Reviewed as documented in chart. Surgical history: Bilateral tubal ligation. colonoscopy. pacemaker placement., Reviewed as documented in chart. Family history: No family history items have been selected or recorded., Reviewed as documented in chart. Social history: Social & Psychosocial Habits Alcohol 08/21/2018 Alcohol Use History, Social Habits No Nutrition/Health 01/01/2014 Caffeine intake amount: 4 Substance Abuse 11/04/2017 Recreational Drug Use History No Recreational Drug Use Last 12 Months No Tobacco 11/04/2017 Smoking Status Never smoker , Reviewed as documented in chart. 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 Physical Examination Vital Signs Vital Signs/Vital Measures 06/18/2022 10:10 EDT Systolic Blood Pressure 124 mmHg Diastolic Blood Pressure 74 mmHg Temperature Source Temporal artery scanning Temperature Mode Fahrenheit Temperature, Fahrenheit 97.5 Deg F Clinical Temperature, C 36.4 Deg C Peripheral Pulse Rate 80 bpm Respiratory Rate 16 Breaths/Min Oxygen Saturation 97 % Oxygen Therapy Mode Room air . Measurements 06/18/2022 10:10 EDT Height Source Estimated Height Entry Format [place] Height/Length, URUGUAYAN (ft) 5 ft Height/Length URUGUAYAN 7 Inch CLINICALHEIGHT 170.18 cm Lowes Body Weight 61.16 kg Weight Source, ED Critical estimated dosing weight Weight Entry Format [place] Weight Ch[place] lb 129 lb CLINICALWEIGHT 58.64 kg Body Surface Area (BSA) 1.68 m2 Body Mass Index 20.2 kg/m2 . Oxygen Saturation 06/18/2022 10:10 EDT Oxygen Saturation 97 % . General: Alert, no acute distress. Skin: Warm. Head: Normocephalic. Neck: Supple. Eye: Sclera: not icteric. Ears, nose, mouth and throat: Oral mucosa moist, Tympanic membrane: Right, mild, erythema, Throat: Right, erythema. Cardiovascular: Regular rate and rhythm, No murmur, Normal peripheral perfusion, No edema. Respiratory: Lungs are clear to auscultation, respirations are non-labored, breath sounds are equal. Chest wall: No tenderness. Back: Nontender. Gastrointestinal: Soft, Nontender, Non distended, Normal bowel sounds. Neurological: No focal neurological deficit observed. Lymphatics: No lymphadenopathy. Psychiatric: Cooperative. Medical Decision Making Differential Diagnosis:: Bronchitis, upper respiratory infection, influenza. Results review: Lab results : Lab Results 06/18/2022 10:38 EDT Group A Strep PCR Negative Group C/G Strep PCR Negative Bordatella pertussis Not Detected Chlamydia pneumoniae Not Detected Mycoplasma pneumoniae Not Detected Bordatella parapertussis Not Detected Adenovirus Not Detected Coronavirus 229E Not Detected Coronavirus HKU1 Not Detected Coronavirus NL63 Not Detected Coronavirus OC43 Not Detected Human metapneumovirus Not Detected Influenza A Not Detected Influenza A H3 Not Detected Influenza A 2009 H1N1 Not Detected Influenza A H1 Not Detected Influenza B Not Detected Parainfluenza 1 Not Detected Parainfluenza 2 Not Detected Parainfluenza 3 Not Detected Parainfluenza 4 Not Detected Respiratory Syncytial Virus Not Detected Rhinovirus/Enterovirus Not Detected SARS-CoV-2 (COVID19 PCR) Detected . Radiology results: Radiology Results (Last 48 hours) [id number] -- 06/18/2022 09:42 CR Chest 1 Vw Portable (06/18/2022 11:25) Result: PORTABLE CHEST HISTORY: Cough.COMPARISON: 19 Mar 2019.FINDINGS: The cardiac silhouette is normal in size. Left subclavianpacemaker is present. The lungs are clear. There is no pneumothorax. Theosseous structures are unremarkable. IMPRESSION: No acute cardiopulmonary process.Images reviewed, interpreted, and dictated by Alberto Schwab MD . Reexamination/ Reevaluation Time: 06/18/2022 12:25:00 . Vital signs per nurse's notes Notes: Discussed with patient diagnostic test results, differential diagnosis of the symptoms, treatment plan treatment plan, in detail adviseds, advised follow-up with primary care physician for further evaluation and management, also give patient specific instruction to return to the emergency department, if symptoms worsens. Impression and Plan Diagnosis COVID-19 - Discharge, Medical Cough - Discharge, Medical Plan Condition: Stable. Disposition: Discharged Pharmacy: Paxlovid 150 mg-100 mg (300 mg-100 mg Dose) oral tablet (Prescribe): 1 Each, Oral, Q12H, for 5 Day(s), Paxlovid - Moderate Renal; 1 each = 150 mg nimatrelvir (1 x 150 mg tab) and 100 mg ritonavir (1 x 100 mg tab), 20 Tab, 0 Refill(s) Admit/Transfer/Discharge: Discharge (Order): Start: 06/18/2022 12:26 EDT, Discharge to: Home. Patient was given the following educational materials: 10 Things You Can Do to Manage Your COVID-19 Symptoms at Home - CDC (05/22/2021), COVID-19: What to Do If You Are Sick - [facility] (01/26/2022), COVID-19: Quarantine and Isolation - [facility] (02/03/2022). Follow up with: RADHA SWAN Within 2 to 3 days Call for follow up appointment with PCP Talk to your ship erector or PCP before you start taking Paxlovid; [facility] (Find a Doc) Within 2 to 3 days; [facility] (Find a Doc) Within 2 to 3 days; Return to emergency department Within 2 to 3 days. Counseled: Patient, Regarding diagnosis, Regarding diagnostic results, Regarding treatment plan, Regarding prescription, Patient indicated understanding of instructions. documented in this encounter Plan of Treatment Upcoming Encounters Date Type Department Care Team (Late st Contact Info) Description 01/15/2025 2:45 PM EDT Office Visit [facility] - [place] [id number] [facility] [address] [place] [address] Jayla Ontiveros MD [address] [facility] [address] [place] [address] 09/19/2025 2:30 PM EST Appointment [facility] Breast [facility] [address] [place] [address] documented as of this encounter Visit Diagnoses Not on filedocumented in this encounter Care Teams Asset Analyst Relationship Specialty Start Date End Date Radha Swan APRN PCP - General Primary Care 09/07/22 01/03/24 Suzanne Mora, CODY [address] [place] [address] PCP - General Family Medicine 01/04/24 Steven Marcelo MD [address] [facility] [address] [place] [address] Surgeon General Surgery 09/07/22 Jayla Ontiveros MD [address] [facility] [address] [place] [id number] Medical Oncologist Hematology and Oncology 09/07/22 Rory, Modesta Walsh, RN Nurse Navigator 03/03/23 03/20/24 documented as of this encounter
--- OUTSIDE RECORDS SUMMARY | 2024-10-05 17:16 | XMS_ITS | Encounter Summary ---
Author Organization [employer] Address [address] [place] [address] Care Team Providers Care Bucket Turner Name Role Phone Radha Swan APRN Primary Care Provider [phone] Steven Marcelo MD Unavailable [phone] Jayla Ontiveros MD Unavailable [phone] Reason for Referral * DXA (Routine) - Closed Specialty Diagnoses / Procedures Referred By Jaswinder kan Referred To Contact Breast Care / Radiology Diagnoses Osteopenia after menopause Procedures DXA bone density spine and hip Radha Swan APRN [address] [facility] [address] [place] [address] Phone: tel: fax: [facility] Breast [address] [place] [address] Phone: tel: fax: Referral ID Status Reason Start Date Expiration Date Visits Re quested Visits Authorized [id number] Closed 10/10/2022 04/08/2023 1 1 Reason for Visit * Reason Comments medicare wellness check Encounter Details Date Type Department Care Team (Late st Contact Info) Description 10/08/2022 3:00 PM EST Office Visit [facility] Primary Care [address] [facility] [address] [place] [address] Radha Swan, CERTIFIED FLIGHT INSTRUCTOR [address] [facility] [address] [place] [address] Primary hypertension (Primary Dx); Mixed hyperlipidemia; Other specified hypothyroidism; Medicare annual wellness visit, subsequent; Osteopenia after menopause; Malignant neoplasm of lower-inner quadrant of left breast in female, estrogen receptor positive (HCC); Stage 2 chronic kidney disease; Coronary artery disease involving [place] heart without angina pectoris, unspecified vessel or lesion type; Need for vaccine for Td (tetanus-diphtheria) ; Need for shingles vaccine Social History Tobacco Use Types Packs/Day Years [...] Sign Reading Time Taken Comments Blood Pressure 122/85 10/08/2022 3:16 PM EST Pulse 59 10/08/2022 3:16 PM EST Temperature 37.1 ??C (98.7 ??F) 10/08/2022 3:16 PM ES T Respiratory Rate - - Oxygen Saturation - - Inhaled Oxygen Concentration - - Weight 60.3 kg (133 lb) 10/08/2022 3:16 PM EST Height 170.2 cm (5' 7 ) 10/08/2022 3:16 PM EST Body Mass Index 20.83 10/08/2022 3:16 PM EST documented in this encounter Progress Notes * Rocio Estrada CMA - 10/08/2022 3:00 PM EST ; OR UI SOFTWARE ENGINEER * Radha Swan APRN - 10/08/2022 3:00 PM EST Medicare Annual Wellness Visit (Second Visit) Must be at least 12 months post Initial Medicare Visit or never received Welcome to Medicare in first year CPT Code is G0438 Billing Advice includes: Review of Medical/Family history Measurement of height, weight, BMI, BP and others as needed List of patient care team Screening for depression, ADL, Cognition and Falls Review of health risk factors HM list Provide a written list of risk factors and screening tests to patient in the patient instructions Advance Directive Planning Chief Complaint: Chief Complaint Patient presents with ??? medicare wellness check HPI: Sheron Carvajal is a 71 y.o. female who is here for her Medicare Annual Wellness physical exam. She describes her current health as good. She is currently retired. Her diet is described as healthy. Her exercise level is moderately active. She is not sexually active. Her immunizations have been re viewed. Her age appropriate risk factors for cardiovascular disease, sexual risk, lifestyle risk have been reviewed and addressed. Other issues that she wishes to have addressed today include: none. CognitiveScreen: (Minicognitive >11 screening normal , MMSE >than 27 is normal (24 if only grade school or middle school education level), 19-26 indicates mild cognitive impairment and rescreening in 6 months to one year is indicated if the index of suspicion is low. A Score of 12-19 indicatesmild to moderate dementia and treatment should be initiated along with referral for further testingif indicated. Scores less than 12 indicate moderate to severe dementia and treatment should be continued or increased. Consideration for home care or SNF care should be undertaken) Minicog total = MMSE total = Plan: Normal Cognition no needs identified. She was screened for falls risk, depression, functional ability and cognitive impairment within thepast year. The results and plan are detailed below. She is not on any pain meds, not cocerned about addiction. She does have advance directives. ROS: Pt is still seeing Dr. Joyner and Dr. Monaco for breast CA. Had a lumpectomy and completed radiation. Will be having another Mammogram in a few months to determine if any other treatment is necessary. She feels good. She is still seeing Dr. Servin (cardiology) and a doctor at [facility] CKD every 6 months. She has had labs done with nephrology, but is overdue for her annual labs here. She is UTD on vaccines other than Shingles and Tdap, advised to get them at the pharmacy. She is not on pain medications, is not concerned about an addiction. Chronic Problem List: Patient Active Problem List Diagnosis Date Noted ??? Medicare annual wellness visit, subsequent 10/10/2022 ??? Osteopenia after menopause 10/10/2022 ??? Other specified hypothyroidism 10/10/2022 ??? Mixed hyperlipidemia 10/10/2022 ??? Primary hypertension 10/10/2022 ??? Stage 2 chronic kidney disease 10/10/2022 ??? Malignant neoplasm of lower-inner quadrant of left breast in female, estrogen receptor positive(HCC) 09/01/2022 ??? Asymptomatic menopausal state 09/01/2022 Immunization History: Immunization History Administered Date(s) Administered ??? Covid-19 Vaccine MRNA (PF) 18yr+ (Moderna)([id number]) 02/11/2021, 03/13/2021, 10/17/2021 ??? Influenza, High Dose Seasonal 09/21/2022 Past Medical/Surgical History: Past Medical History: Diagnosis Date ??? Anemia ??? Atrial fibrillation (HCC) ??? Chronic kidney disease ??? H/O tubal ligation 1983 ??? Heart disease ??? Hypertension Past Surgical History: Procedure Laterality Date ??? pace maker 2019 Family History: History reviewed. No pertinent family history. Extended Social History: Social History Socioeconomic History ??? Marital status: Single Spouse name: Not on file ??? Number of children: Not on file ??? Years of education: Not on file ??? Highest education level: Not on file Occupational History ??? Not on file Tobacco Use ??? Smoking status: Former Smoker ??? Smokeless tobacco: Never Used Vaping Use ??? Vaping Use: Never used Substance and Sexual Activity ??? Alcohol use: Not Currently ??? Drug use: Never ??? Sexual activity: Never Other Topics Concern ??? Not on file Social History Narrative ??? Not on file Social Determinants of Health Financial Resource Strain: Not on file Food Insecurity: Not on file Transportation Needs: Not on file Physical Activity: Not on file Stress: Not on file Social Connections: Not on file Intimate Partner Violence: Not on file Care Team: Patient Care Team: Radha Swan APRN as PCP - General (Primary Care) Steven Marcelo MD as Surgeon (General Surgery) Jayla Ontiveros MD as Medical Oncologist (Hematology and Oncology) Objective: BP 122/85 Pulse 59 Resp Temp 98.7 ??F (37.1 ??C) SpO2 Wt 60.3 kg (133 lb) Ht 1.702 m (5' 7 ) Body mass index is 20.83 kg/m??. PE: NAD, A&O x3. RRR, no murmur, no LE edema. Lungs CTA bilat. Pedal pulses palpable. Assessment/Plan: Encounter Diagnoses Name Primary? Primary hypertension Yes ??? Mixed hyperlipidemia ??? Other specified hypothyroidism ??? Medicare annual wellness visit, subsequent ??? Osteopenia after menopause ??? Malignant neoplasm of lower-inner quadrant of left breast in female, estrogen receptor positive(HCC) ??? Stage 2 chronic kidney disease ??? Coronary artery disease involving [place] heart without angina pectoris, unspecified vessel or lesion type ??? Need for vaccine for Td (tetanus-diphtheria) ??? Need for shingles vaccine Problem List Items Addressed This Visit Cardiovascular and Mediastinum Primary hypertension - Primary Relevant Medications metoprolol succinate (TOPROL-XL) 100 MG 24 hr tablet metoprolol ta-hydrochlorothiaz (LOPRESSOR HCT) 100-25 mg per tablet omega-3s/dha/epa/fish oil/D3 (VITAMIN-D + OMEGA-3 ORAL) Other Relevant Orders CBC With Diff/Platelet (Completed) Endocrine Other specified hypothyroidism Relevant Orders TSH+FREE T4 (Completed) Musculoskeletal and Integument Osteopenia after menopause Relevant Orders DXA bone density spine and hip Genitourinary Stage 2 chronic kidney disease Other Malignant neoplasm of lower-inner quadrant of left breast in female, estrogen receptor positive (HCC) (Chronic) Relevant Medications ondansetron (ZOFRAN-ODT) 4 MG disintegrating tablet oxyCODONE-acetaminophen (PERCOCET) 5-325 mg per tablet Medicare annual wellness visit, subsequent Mixed hyperlipidemia Relevant Medications metoprolol succinate (TOPROL-XL) 100 MG 24 hr tablet metoprolol ta-hydrochlorothiaz (LOPRESSOR HCT) 100-25 mg per tablet omega-3s/dha/epa/fish oil/D3 (VITAMIN-D + OMEGA-3 ORAL) Other Relevant Orders Comprehensive metabolic panel (Completed) Lipid panel (Completed) Other Visit Diagnoses Coronary artery disease involving [place] heart without angina pectoris, unspecified vessel or lesion type Relevant Medications metoprolol succinate (TOPROL-XL) 100 MG 24 hr tablet metoprolol ta-hydrochlorothiaz (LOPRESSOR HCT) 100-25 mg per tablet omega-3s/dha/epa/fish oil/D3 (VITAMIN-D + OMEGA-3 ORAL) Need for vaccine for Td (tetanus-diphtheria) Relevant Orders Tdap vaccine greater than or equal to 7yo IM Need for shingles vaccine Relevant Orders (Shingrix, Recombinant, Adjuvanted) Zoster Vaccine IM Screening Tools Assessment/Documentation: Falls Screen: (Positive response to any questions place patient at increased risk of falls) Fall Screening Score: Neg. Plan: No intervention needed-No fall risk found. Depression Screen: (PHQ9 > 10 Likely Major Depression, 5-9 = Mild depression, 10-14= Moderate depression, 15-19 Moderately severe depression, > 20 =severe depression) PHQ2 = Depression Risk: 0 PHQ9= Plan: Depression screen is negative. Functional Assessment: (Patients who need assistance or are dependent should be assessed for any home assistance needs) ADL screen: Independent. Plan: No current risk or needs. CognitiveScreen: (Minicognitive >11 screening normal , MMSE >than 27 is normal (24 if only grade or middle school), 19-26 indicates mild cognitive impairment and rescreening in 6 months to one year is indicated if the index of suspicion is low. A Score of 12-19 indicates mild to moderate dementia and treatment should be initiated along with referral for further testing if indicated. Scores less than 12 indicate moderate to severe dementia and treatment should be continued or increased. Consideration for home care or SNF care should be undertaken) Minicog total = MMSE total = Plan: Normal Cognition no needs identified. Advance Directives Discussion: (If patient does not have any advance directives on file, the advance directives should be printed out and given to patient as part of the visit summary) Advance Directives have been reviewed with Sheron Carvajal and/or family: Discussed advance directives with patient and Form given if needed 5-10 Year Screening Plan [place] Score =The CVD Risk score (Elizabeth'Agoino, et al., 2008) failed to calculate for the following reasons: CVD risk score not calculated CAD risk factors: Pt has h/o cardiac issues, seeing cardiology Sexual Risk = not currently sexually active Lifestyle risk = None Health Maintenance Topic Date Due ??? Colon Cancer Screening-combo Never done ??? BREAST CANCER SCREENING Never done ??? DXA SCAN Never done ??? DTAP/TDAP/TD VACCINES (1 - Tdap) Never done ??? SHINGLES VACCINES (1 of 2) Never done ??? COVID-19 VACCINE (4 - Booster for Moderna series) 02/15/2022 ??? Tobacco Cessation Counseling and Screening (12+) 10/08/2023 ??? PNEUMOCOCCAL 65+ YRS Completed ??? INFLUENZA VACCINE Completed ??? DEPRESSION SCREENING (12+) Completed ??? FALLS RISK SCREENING Completed ??? HEPATITIS C SCREENING Addressed . ; OR UI SOFTWARE ENGINEER documented in this encounter Plan of Treatment Upcoming Encounters Date Type Department Care Team (Late st Contact Info) Description 01/15/2025 2:45 PM EDT Office Visit [facility] - [address] [place] [id number] Jayla Ontiveros MD [address] [facility] [address] [place], [place] [id number] 09/19/2025 2:30 PM EST Appointment [facility] [address] [facility] [address] [place] [address] documented as of this encounter Procedures Procedure Name Priority Date/Time Associated Diagnosis Comments CBC WITH DIFF/PLATELET Routine 10/08/2022 4:07 PM EST Primary hypertension TSH+FREE T4 Routine 10/08/2022 4:07 PM EST Other specified hypothyroidism LIPID PANEL Routine 10/08/2022 4:07 PM EST Mixed hyperlipidemia COMPREHENSIVE METABOLIC PANEL Routine 10/08/2022 4:07 PM EST Mixed hyperlipidemia documented in this encounter Results * DXA bone density spine and hip (11/29/2022 4:06 PM EST) Anatomical Region Laterality Modality Bone Dual-energy X-ra y absorptiometry (DEXA) 11/29/2022 4:07 PM EST Narrative 11/29/2022 4:09 PM EST PROCEDURE: Bone densitometry (DXA). REASON FOR EXAM: Postmenopausal, screening for osteoporosis RISK FACTORS: Estrogen deficiency COMPARISON STUDY: [facility] 2016 FINDINGS: Bone densitometry was performed using a [employer] unit. Sites measured included the spine and [...] osteoporosis RISK FACTORS: Estrogen deficiency COMPARISON STUDY: [facility] 2015 FINDINGS: Bone densitometry was performed using a [employer] unit. Sites measured included the spine and [...] scan in 2 years. Left hip us Radha Swan APRN IMG DXA ORDERABLES Final Res ult * (ABNORMAL) Lipid panel (10/08/2022 4:07 PM EST) [facility] Cholesterol, Total 196 100 - 199 mg/dL [facility] Triglycerides 85 0 - 149 mg/dL [facility] HDL Cholesterol 63 >39 mg/dL [facility] VLDL Cholesterol Fran 15 5 - 40 mg/dL [facility] LDL Calculated 118(H) 0 - 99 mg/dL [facility] Blood 10/08/2022 4:07 PM EST 10/08/2022 Narrative [facility] - 10/09/2022 6:07 AM EST Performed at: ??01 - [facility] ??[id number] Picking Machine Operator Helper: Tomas Arechiga PhD, Phone: ??[phone] us Radha Swan APRN LAB BLOOD ORDERABLES Final R esult [facility] * (ABNORMAL) Comprehensive metabolic panel (10/08/2022 4:07 PM EST) Glucose, Serum 83 70 - 99 mg/dL [facility] BUN 18 8 - 27 mg/dL [facility] Creatinine, Serum 1.18(H) 0.57 - 1.00 mg/dL [facility] EGFR 50(L) >59 mL/min/1.7 3 [facility] BUN/Creatinine Ratio 15 12 - 28 [facility] Sodium, Serum 140 134 - 144 mmol/L [facility] Potassium, Serum 4.1 3.5 - 5.2 mmol/L [facility] Chloride, Serum 100 96 - 106 mmol/L [facility] Carbon Dioxide, Total 24 20 - 29 mmol/L [facility] Calcium, Serum 9.8 8.7 - 10.3 mg/dL [facility] Protein, Total, Serum 7.1 6.0 - 8.5 g/dL [facility] Albumin, Serum 4.7 3.8 - 4.8 g/dL [facility] Globulin, Total 2.4 1.5 - 4.5 g/dL [facility] A/G Ratio 2.0 1.2 - 2.2 [facility] Bilirubin, Total 0.3 0.0 - 1.2 mg/dL [facility] Alkaline Phosphatase, S 90 44 - 121 IU/L [facility] AST (SGOT) 18 0 - 40 IU/L [facility] ALT (SGPT) 11 0 - 32 IU/L [facility] Blood 10/08/2022 4:07 PM EST 10/08/2022 Narrative [facility] - 10/09/2022 6:07 AM EST Performed at: ??01 - [facility] [address] ??[id number] Picking Machine Operator Helper: Tomas Arechiga PhD, Phone: ??[phone] us Radha Swan APRN LAB BLOOD ORDERABLES Final R esult [facility] * CBC With Diff/Platelet (10/08/2022 4:07 PM EST) WBC 4.0 3.4 - 10.8 x10E3/uL [facility] RBC 4.23 3.77 - 5.28 x10E6/uL [facility] Hemoglobin 12.7 11.1 - 15.9 g/dL [facility] Hematocrit 38.6 34.0 - 46.6 % [facility] MCV 91 79 - 97 fL [facility] MCH 30.0 26.6 - 33.0 pg [facility] MCHC 32.9 31.5 - 35.7 g/dL [facility] RDW 12.1 11.7 - 15.4 % [facility] Platelets 196 150 - 450 x10E3/uL [facility] % Neutros 53 Not Estab. % [facility] % Lymphs 32 Not Estab. % [facility] % Monos 10 Not Estab. % [facility] % Eos 3 Not Estab. % [facility] % Baso 2 Not Estab. % [facility] # Neutros 2.1 1.4 - 7.0 x10E3/uL [facility] # Lymphs 1.3 0.7 - 3.1 x10E3/uL [facility] # Monos 0.4 0.1 - 0.9 x10E3/uL [facility] # Eos 0.1 0.0 - 0.4 x10E3/uL [facility] Baso (Absolute) 0.1 0.0 - 0.2 x10E3/uL [facility] % Immature Grans 0 Not Estab. % [facility] # Immature Grans 0.0 0.0 - 0.1 x10E3/uL [facility] 10/08/2022 4:07 PM EST 10/08/2022 Narrative [facility] - 10/09/2022 6:07 AM EST Performed at: ??01 - [facility] [address] ??[id number] Picking Machine Operator Helper: Tomas Arechiga PhD, Phone: ??[phone] us Radha Swan APRN LAB BLOOD ORDERABLES Final R esult [facility] * TSH+FREE T4 (10/08/2022 4:07 PM EST) TSH 3.870 0.450 - 4.500 uIU/mL [facility] T4,Free(Direct) 0.94 0.82 - 1.77 ng/dL [facility] 10/08/2022 4:07 PM EST 10/08/2022 Narrative [facility] - 10/09/2022 6:07 AM EST Performed at: ??01 - [facility] [address] ??[id number] Picking Machine Operator Helper: Tomas Arechiga PhD, Phone: ??[phone] us Radha Swan APRN LAB BLOOD ORDERABLES Final R esult Performing Organization Address [facility] Co de Phone Number [facility] documented in this encounter Visit Diagnoses Diagnosis Primary hypertension- Primary Unspecified essential hypertension Mixed hyperlipidemia Other specified hypothyroidism Medicare annual wellness visit, subsequent Osteopenia after menopause Malignant neoplasm of lower-inner quadrant of left breast in female, estrogen receptor positive (HCC) Stage 2 chronic kidney disease Coronary artery disease involving [place] heart without angina pectoris, unspecified vessel or lesion type Need for vaccine for Td (tetanus-diphtheria) Need for prophylactic vaccination with tetanus-diphtheria (Td) Need for shingles vaccine Need for prophylactic vaccination and inoculation against varicella Osteopenia after menopause documented in this encounter Care Teams Bucket Turner Relationship Specialty Start Date End Date Radha Swan APRN PCP - General Primary Care 09/07/22 01/03/24 Steven Marcelo MD [address] [facility] [address] [place] [address] Surgeon General Surgery 09/07/22 Jayla Ontiveros MD [address] [facility] [address] [place] [address] Medical Oncologist Hematology and Oncology 09/07/22 documented as of this encounter
--- OUTSIDE RECORDS SUMMARY | 2024-10-05 17:16 | XMS_ITS | Encounter Summary ---
Author Organization ? [employer] Address [address] [place] [address] Care Team Providers Care Contractor General Engineering Name Role Phone Unavailable Primary Care Provider Unavailabl e Reason for Visit * Reason Comments Follow-up surg path Encounter Details Date Type Department Care Team (Late st Contact Info) Description 09/01/2022 9:45 AM EDT Office Visit [facility] - [address] [facility] [address] [place] [address] Oumou Ontiveros MD [address] [facility] [address] [place] [address] Malignant neoplasm of lower-inner quadrant of left [...] Sign Reading Time Taken Comments Blood Pressure 120/63 09/01/2022 9:29 AM EDT Pulse 64 09/01/2022 9:29 AM EDT Temperature 36.3 ??C (97.3 ??F) 09/01/2022 9:29 AM ED T Respiratory Rate 18 09/01/2022 9:29 AM EDT Oxygen Saturation 96% 09/01/2022 9:29 AM EDT Inhaled Oxygen Concentration - - Weight 59.9 kg (132 lb) 09/01/2022 9:29 AM EDT Height 170.2 cm (5' 7 ) 09/01/2022 9:29 AM EDT Body Mass Index 20.67 09/01/2022 9:29 AM EDT documented in this encounter Progress Notes * Oumou Ontiveros MD - 09/01/2022 9:45 AM EDT Cancer History: 1. Presented for screening mammography with 3-4mm density, biopsy with Grade 1 IDC, ER/TX positive and HER2 negative. Chief Complaint: Breast cancer History of Present Illness: Sheron Carvajal is a 71 y.o. female Here for follow-up of breast cancer after recent lumpectomy.She is healing well. Denies any swelling drainage or redness of her incisions. Past Medical History Past Medical History: Diagnosis Date ??? Anemia ??? Atrial fibrillation (HCC) ??? Chronic kidney disease ??? H/O tubal ligation 1983 ??? Heart disease ??? Hypertension Past Surgical History Past Surgical History: Procedure Laterality Date ??? pace maker 2019 Family History: Negative for malignancy Allergies: Nsaids (Non-Steroidal Anti-Inflammatory Drug) Medications: Current Outpatient Medications on File Prior to Visit Medication Sig Dispense Refill ??? amLODIPine (NORVASC) 5 MG tablet Take 5 mg by mouth daily. ??? Eliquis 5 MG tablet Take 5 mg by mouth 2 (two) times daily. ??? lisinopriL (PRINIVIL,ZESTRIL) 40 MG tablet Take by mouth. ??? metoprolol succinate (TOPROL-XL) 25 MG 24 hr tablet Take 25 mg by mouth daily. No current facility-administered medications on file prior to visit. Review of Systems: 10 systems reviewed and negative except as noted per HPI Vitals Vitals: 09/01/22 0929 BP: 120/63 Pulse: 64 Resp: 18 Temp: 97.3 ??F (36.3 ??C) SpO2: 96% Physical Exam Vitals and nursing note reviewed. Constitutional: General: She is not in acute distress. Appearance: Normal appearance. She is not toxic-appearing. HENT: Head: Normocephalic and atraumatic. Nose: Nose normal. Mouth/Throat: Mouth: Mucous membranes are dry. Pharynx: Oropharynx is clear. Eyes: Extraocular Movements: Extraocular movements intact. Pupils: Pupils are equal, round, and reactive to light. Cardiovascular: Rate and Rhythm: Normal rate and regular rhythm. Heart sounds: Normal heart sounds. Pulmonary: Effort: Pulmonary effort is normal. No respiratory distress. Breath sounds: Normal breath sounds. No wheezing, rhonchi or rales. Chest: Comments: Well-healing breast and axillary incisions, no erythema or drainage Abdominal: General: Abdomen is flat. Bowel sounds are normal. Palpations: Abdomen is soft. Musculoskeletal: General: No swelling or deformity. Normal [...] Content: Thought content normal. Judgment: Judgment normal. Relevant Results: No visits with results within 90 Day(s) from this visit. Latest known visit with results is: No results found for any previous visit. 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 1. Malignant neoplasm of lower-inner quadrant of left breast in female, estrogen receptor positive (HCC) 2. Asymptomatic menopausal state Plan: Assessment & Plan Cancer Staging Malignant neoplasm of lower-inner quadrant of left breast in female, estrogen receptor positive (HCC) Staging form: Breast, AJCC 8th Edition - Clinical stage from 09/01/2022: Stage IA (cT1a, cN0(sn), cM0, G1, ER+, TX+, HER2-) - Signed by Oumou Ontiveros MD on 09/01/2022 I recommended adjuvant endocrine therapy with anastrozole for 5 years. She has also been referred to radiation for adjuvant breast radiation. Risks of aromatase inhibitors including but not limited to vasomotor symptoms, arthralgias, and accelerated bone density loss were reviewed. Baseline DEXA ordered today. Calcium and vitamin D supplementation recommended. she will return to clinic in 3 months for survivorship visit. Signed: Electronically signed by OUMOU ONTIVEROS MD 09/01/22 9:35 AM EDT documented in this encounter Plan of Treatment Upcoming Encounters Date Type Department Care Team (Late st Contact Info) Description 01/15/2025 2:45 PM EDT Office Visit [facility] - [address] [place] [address] Oumou Ontiveros MD [address] [facility] [address] [place] [address] 09/19/2025 2:30 PM EST Appointment [facility] [address] [facility] [address] [place] [address] documented as of this encounter Visit Diagnoses Diagnosis Malignant neoplasm of lower-inner quadrant of left breast in female, estrogen receptor positive (HCC)- Primary Asymptomatic menopausal state documented in this encounter
--- OUTSIDE RECORDS SUMMARY | 2024-10-05 17:16 | XMS_ITS | Encounter Summary ---
Author Organization [employer] Address [address] [place] [address] Care Team Providers Care Group Account Director Name Role Phone Radha Swan Nick ROSS Primary Care Provider + [phone] Steven Marcelo MD Unavailable [phone] Jayla Ontiveros MD Unavailable [phone] Modesta Valadez RN Unavailable Unavailable Encounter Details Date Type Department Care Team (Late st Contact Info) Description 10/20/2022 Patient Outreach [facility] [place] [address] [place] [address] Modesta Valadez, RN Social History Tobacco Use Types Packs/Day Years [...] as of this encounter Progress Notes * Cele Feliz PA-C - 10/20/2022 3:36 PM ESTSummary: Survivorship Care Plan Survivorship Care Plan PATIENT NAME: Sheron Carvajal DATE OF : 1950 Introduction This Survivorship plan has been created for you by your oncology team. It contains information on how to contact your team, a summary of your diagnosis and treatment, a list of any appointments you have scheduled, recommendations for your follow up care as well as information about maintaining a healthy lifestyle. Over time, the plan for your care and recommendations may change. We will provide you with a new plan as needed. This plan contains your medical history and you should keep the information confidential. Care Team Department Medical Oncologist: Jayla Ontiveros MD. Nurse Navigator: PERLA Bashir, RN, Business Analytics Faculty Member: Mary Kelly, Sports Equipment Supervisor: Mai Almanza RD, Financial Counselor: Glen Shine, Cancer Surgeon: Steven Marcelo MD, Radiation Oncologist: Dhaval Flood MD Primary care physician: RADHA SWAN APRN Diagnosis & Staging Cancer Staging Malignant neoplasm of lower-inner quadrant of left breast in female, estrogen receptor positive (HCC), Staging form: Breast, AJCC 8th Edition, Pathologic stage from 08/17/2022: Stage IA (pT1a, pN0(sn), cM0, G1, ER+, FL+, HER2-) - Signed by Osvaldo Flood MD on 09/07/2022 Malignant neoplasm of lower-inner quadrant of left breast in female, estrogen receptor positive (HCC), Staging form: Breast, AJCC 8th Edition, Clinical stage from 09/01/2022: Stage IA (cT1a, cN0(sn),cM0, G1, ER+, FL+, HER2-) - Signed by Jayla Ontiveros MD on 09/01/2022 Estrogen Receptor Status: positive Progesterone Receptor Status: positive Her2 jared Status: negative Cancer Surgery and Biopsies 07/19/2022: Left Breast Biopsy, invasive ductal carcinoma, grade 1, ER/FL+, Her2- 08/17/2022: Left Breast Lumpectomy, invasive ductal carcinoma, grade 1, 5mm in greatest dimension, DCIS present, margins uninvolved, Left Breast [place] Lymph Node, 1 negative lymph node Genetic Testing Recommended: No Active Medication List Current Outpatient Medications Medication Instructions ??? amLODIPine [...] nasal spray 1 spray, Nasal, Daily ??? exhr-TK-nag-twn-KDG-BEME-be-mv 1.5 mg iron- 8.73 mg CpID iron [...] 5-325 mg per tablet 1 tablet, Oral Treatment Plan History Chemotherapy: Not indicated Radiation: Radiation Oncology - Course: 1 Protocol: Treatment Site Current Dose Modality From To Elapsed Days Fx. Lt partial breast 3000 cGy x06 09/21/2022 09/27/2022 6 5 Hormone Therapy: Anastrozole, 1mg, oral, daily Started Aug 2022, to be taken for a duration of at least 5 years Medication Allergies Allergies Allergen Reactions ??? Nsaids (Non-Steroidal Anti-Inflammatory Drug) Hives Single kidney---functioning at 50% ??? Valdecoxib Recommendations - Visit your doctor every 3 to 6 months for the first 3 years after the first treatment, every 6 to12 months for years 4 and 5, and every year thereafter. - Baseline mammogram will be done in 6 months and then resume yearly mammography of both breasts. - Perform a breast self examination every month. This procedure is not a substitute for mammograms. - Women taking aromatase inhibitors have an increased risk of osteoporosis. Calcium and vitamin D supplementation is recommended along with bone density monitoring. Upcoming Appointments Next office visit: 12/01/2022 Next Radiation Oncology visit: 01/25/2023 at 3:30pm Next bone density: Due October 2024 Next Mammogram: 02/24/2023 at 2:00pm Potential Late and Oyster Picker Effects of Treatments Make certain to document symptoms to discuss at your next visit. Call your care team if symptoms change suddenly, or call 911 if necessary. Appetite (hunger) changes Breathing Problems Bone pain Change in concentration Dental concerns Headaches Hearing changes Heart problems Hormone changes Sexual health changes Low energy or fatigue Memory changes Pain Sadness Skin changes Changes in sleep Swollen arms or legs Urinary problems Worry Numbness of hands or feet Other: Notes - [facility] offers oncology rehabilitation program for any patients suffering ongoing loss of function after cancer treatment. - Many [facility] facilities partner with [facility] to offer a cancer exercise program to customize exercise as patients regain strength from cancer treatment. Risk You should continue to follow up with your physician because the risk of breast cancer returning continues for more than 15 years after remission, and because, if you have not had bilateral mastectomies, you are at higher risk to develop new, unrelated, breast cancer at some time in the future. Symptoms of Recurrence Report these symptoms to your doctor: new lumps in the breast, nipple discharge, rash on breast, bone pain, chest pain, shortness of breath or difficulty breathing, abdominal pain or persistent headaches. Cancer Surveillance and Other Recommended Related Tests Please continue to see your primary care provider for all general health care recommended for a person your age, including cancer screening tests. Any new or persistent symptoms should be brought to the attention of your oncology team. No surveillance imaging (CT scans or PET scans) or labs are recommended for breast cancer follow up aside from mammography. Risk Modification A number of lifestyles/behaviors can affect your ongoing health, including the risk for the cancer coming back or developing another cancer. Lifestyle recommendations for cancer prevention include: - Avoid tobacco products. Smoking cessation resources are available at 800-QUIT NOW. Please notify your provider if interested in nicotine replacement or other medicines to help you quit. Long termsmokers over age 55 should undergo yearly low dose CT scans to detect lung cancer early. - Use alcohol in moderation or not at all - Strive for ideal body weight - Well balanced diet - Sunscreen use - Regular physical activity Follow up with primary care provider regularly for other cancer screenings such as skin exams, Pap smears, colonoscopy, low dose CT for lung cancer screening. Potential Ongoing Issues Cancer survivors may experience issues with the following areas: emotional or mental health, physical functioning, insurance, financial advice or assistance, school or work, parenting, fertility, weight changes or stopping smoking. If you have any concerns in these or other areas, please speak withyour doctors or nurses to find out how you can get help with them. Resources http://www.cancer.org/Cancer/BreastCancer/DetailedGuide/zgxvlk-xoxcbd-crmck-qual ity-of-life http://www.cancer.org/Cancer/BreastCancer/DetailedGuide/gwople-lfkies-pnzwu-emot ional-aspects http://www.cancer.org/Cancer/BreastCancer/DetailedGuide/jiynbu-bkysub-dcuev-body -image http://www.cancer.org/Cancer/BreastCancer/DetailedGuide/jsaarq-dabvpe-yntcl-preg ari-after http://www.cancer.org/Cancer/BreastCancer/DetailedGuide/bmddbz-zjjzqe-rjxii-foll ow-up http://www.cancer.org/Cancer/BreastCancer/DetailedGuide/okbjdn-fxuxtx-ynfnp-post -menopausal-therapy http://www.cancer.org/Cancer/BreastCancer/DetailedGuide/lhtvob-eizwun-wzjma-no-l onger-working Cosigned by Modesta Valadez RN at 12/01/2022 8:45 AM EST TING HELPER TING HELPER TING HELPER * Moedsta Valadez RN - 10/20/2022 3:36 PM EST Late entry Patient seen by Provider during appointment on 12.01.22. SCP plan, along with resources on Nutrition, Livestrong program, Kristina Ring support group, and Physical Therapy given. Distress reviewed. Provider aware. Navigator card given for continued questions. Modesta Valadez RN TING HELPER documented in this encounter Plan of Treatment Upcoming Encounters Date Type Department Care Team (Late st Contact Info) Description 01/15/2025 2:45 PM EDT Office Visit [facility] - [place] [address] [facility] [address] [place] [address] Jayla Ontiveros MD [address] [place] [address] [address] [place], [place] [id number] 09/19/2025 2:30 PM EST Appointment [facility] Breast [facility] [address] [facility] [address] [place] [address] documented as of this encounter Visit Diagnoses Not on filedocumented in this encounter Care Teams Group Account Director Relationship Specialty Start Date End Date Radha Swan APRN PCP - General Primary Care 09/07/22 01/03/24 Steven Marcelo MD [address] [place] [address] Surgeon General Surgery 09/07/22 Jayla Ontiveros MD [facility] [address] [place], [place] [id number] Medical Oncologist Hematology and Oncology 09/07/22 Modesta Valadez RN Nurse Navigator 03/03/23 03/20/24 documented as of this encounter
--- OUTSIDE RECORDS SUMMARY | 2024-10-05 17:16 | XMS_ITS | Encounter Summary ---
Author Organization [employer] Address [address] [place] [address] Care Team Providers Care Spirits Model Name Role Phone Unavailable Primary Care Provider Unavailabl e Encounter Details Date Type Department Care Team (Latest Contact Info) Description 08/16/2022 10:00 AM EDT - 08/16/2022 11:59 PM EDT Hospital Encounter [facility] Preadmission Testing [address] [facility] [address] [place] [address] Discharge Disposition: Home or Self Care Social [...] (25 mg total) by mouth daily. 06/10/2022 documented as of this encounter Plan of Treatment Upcoming Encounters Date Type Department Care Team (Late st Contact Info) Description 01/15/2025 2:45 PM EDT Office [facility] [address] [place] [address] Jayla Ontiveros MD [address] [place] [address] 09/19/2025 2:30 PM EST Appointment [address] [place] [address] documented as of this encounter Visit Diagnoses Not on filedocumented in this encounter
--- OUTSIDE RECORDS SUMMARY | 2024-10-05 17:16 | XMS_ITS | Encounter Summary ---
Author Organization [employer] Address [address] [place] [address] Care Team Providers Care Special Weapons Unit Officer Name Role Phone Komal Méndez APRN Primary Care Provider + [phone] Steven Marcelo MD Unavailable [phone] Jayla Ontiveros MD Unavailable [phone] Encounter Details Date Type Department Care Team (Latest Contact Info) Description 09/21/2022 3:45 PM EST Hospital Encounter [facility] [place] [address] [place] [address] Osvaldo Flood MD [address] [place] [address] Discharge Disposition: Home or Self [...] Description 01/15/2025 2:45 PM EDT Office Visit [facility] - [facility] [place] [address] [place] [address] Jayla Ontiveros MD [address] [place] [address] 09/19/2025 2:30 PM EST Appointment [facility] Breast [address] [place] [address] documented as of this encounter Visit Diagnoses Not on filedocumented in this encounter Care Teams Special Weapons Unit Officer Relationship Specialty Start Date End Date Komal Méndez APRN PCP - General Primary Care 09/07/22 01/03/24 Steven Marcelo MD [address] [facility] [address] [place] [address] Surgeon General Surgery 09/07/22 Jayla Ontiveros MD [address] [facility] [address] [place] [address] Medical Oncologist Hematology and Oncology 09/07/22 documented as of this encounter
--- OUTSIDE RECORDS SUMMARY | 2024-10-05 17:17 | XMS_ITS | Encounter Summary ---
Author Organization [employer] Address [address] [place] [address] Care Team Providers Care Program Supervisor Name Role Phone Komal Méndez APRN Primary Care Provider + [phone] Steven Marcelo MD Unavailable [phone] Jayla Ontiveros MD Unavailable [phone] Modesta Valadez RN Unavailable Unavailable Suzanne Mora APRN Primary Care Provider [phone] Encounter Details Date Type Department Care Team (Late st Contact Info) Description 11/04/2019 Transcribed Document [facility] [place] [facility] [place] [address] ProviderNimisha MD [address] [place] [address] Social History Tobacco Use Types Packs/Day Years Used Date Smoking Tobacco: Never Assessed Comments Unknown Sex and Gender Information Value Date Recorded Sex Assigned at Not on file Legal Sex Female 4:30 PM CDT Gender Identity Not on file Sexual Orientation Not on file documented as of this encounter Miscellaneous Notes * [employer] Conversion Note - Historical ProviderMD - 11/04/2019 10:19 PM YOUTH PROGRAM DIRECTOR Electronically signed by [facility] Conversion Bus Dispatcher [employer] at 02/22/2023 12:05 PM CDT documented in this encounter Plan of Treatment Upcoming Encounters Date Type Department Care Team (Late st Contact Info) Description 01/15/2025 2:45 PM EDT Office Visit [facility] - [facility] [address] [place] [address] Jayla Ontiveros MD [address] [facility] [address] [place] [address] 09/19/2025 2:30 PM EST Appointment [facility] Breast [facility] [address] [facility] [address] [place] [address] documented as of this encounter Visit Diagnoses Not on filedocumented in this encounter Care Teams Program Supervisor Relationship Specialty Start Date End Date Komal Méndez, PROGRAM SUPPORT SPECIALIST PCP - General Primary Care 09/07/22 01/03/24 Suzanne Mora, PROGRAM SUPPORT SPECIALIST [address] [place] [address] PCP - General Family Medicine 01/04/24 Steven Marcelo MD [address] [facility] [address] [place] [address] Surgeon General Surgery 09/07/22 Jayla Ontiveros MD [address] [facility] [address] [place] [address] Medical Oncologist Hematology and Oncology 09/07/22 Royr, Modesta Walsh, RN Nurse Navigator 03/03/23 03/20/24 documented as of this encounter
--- OUTSIDE RECORDS SUMMARY | 2024-10-05 17:17 | XMS_ITS | Encounter Summary ---
Author Organization [employer] Address [address] [place] [address] Care Team Providers Care Unix Administrator Name Role Phone Irene Méndezh Nick ROSS Primary Care Provider + [phone] Steven Marcelo MD Unavailable [phone] Jayla Ontiveros MD Unavailable [phone] Modesta Valadez RN Unavailable Unavailable Suzanne Mora APRN Primary Care Provider [phone] Encounter Details Date Type Department Care Team (Late st Contact Info) Description 04/29/2022 Transcribed Document [facility] [place] [address] [place] [address] ProviderNimisha MD [address] [place] [address] Social History Tobacco Use Types Packs/Day Years Used Date Smoking Tobacco: Never Assessed Comments Unknown Sex and Gender Information Value Date Recorded Sex Assigned at Not on file Legal Sex Female 4:30 PM CDT Gender Identity Not on file Sexual Orientation Not on file documented as of this encounter Miscellaneous Notes * [employer]ner Conversion Note - Historical ProviderMD - 04/29/2022 10:07 PM CDT ED Discharge Entered On: 04/29/2022 22:07 EDT Performed On: 04/29/2022 22:07 EDT by ABBIE HINOJOSA, shrimp boat captain Process Patient Disposition : Discharge Personal Belongings With Patient : Yes Patient Education Completed : Yes Teaching Evaluation : Verbalizes understanding Nursing Documentation Completed : Yes ABBIE HINOJOSA RN - 04/29/2022 22:07 EDT ED Discharge Discharge To : Home with ambulatory/outpatient follow-up Mode Of Departure : Ambulatory Accompanied By : Daughter Discharge Instructions Reviewed With, Opportunity For Questions Given : Patient ABBIE HINOJOSA RN - 04/29/2022 22:07 EDT Electronically signed by Lili [facility] Conversion Folder [employer] at 02/22/2023 12:06 PM CDT documented in this encounter Plan of Treatment Upcoming Encounters Date Type Department Care Team (Late st Contact Info) Description 01/15/2025 2:45 PM EDT Office Visit [facility] - [facility] [address] [place] [address] Jayla Ontiveros MD [address] [place] [address] [address] [place], [place] [id number] 09/19/2025 2:30 PM EST Appointment [facility] Breast [facility] [address] [facility] [address] [place] [address] documented as of this encounter Visit Diagnoses Not on filedocumented in this encounter Care Teams Unix Administrator Relationship Specialty Start Date End Date Komal Méndez APRN PCP - General Primary Care 09/07/22 01/03/24 Suzanne Mora, CODY [address] [place] [address] PCP - General Family Medicine 01/04/24 Steven Marcelo MD [address] [facility] [address] [place] [address] Surgeon General Surgery 09/07/22 [place] [address] [place] [address] [address] [place], [place] [id number] Medical Oncologist Hematology and Oncology 09/07/22 Modesta Valadez RN Nurse Navigator 03/03/23 03/20/24 documented as of this encounter
--- OUTSIDE RECORDS SUMMARY | 2024-10-05 17:17 | XMS_ITS | Encounter Summary ---
Author Organization [employer] Address [address] [place] [address] Care Team Providers Care Development Vice President Name Role Phone Irene Méndezh Nick ROSS Primary Care Provider + [phone] Steven Marcelo MD Unavailable [phone] Jayla Ontiveros MD Unavailable [phone] Modesta Valadez RN Unavailable Unavailable Suzanne Mora APRN Primary Care Provider [phone] Encounter Details Date Type Department Care Team (Late st Contact Info) Description 11/04/2019 Transcribed Document [facility] [place] [address] ProviderNimisha MD [address] [place] [address] Social History Tobacco Use Types Packs/Day Years Used Date Smoking Tobacco: Never Assessed Comments Unknown Sex and Gender Information Value Date Recorded Sex Assigned at Not on file Legal Sex Female 4:30 PM CDT Gender Identity Not on file Sexual Orientation Not on file documented as of this encounter Miscellaneous Notes * [employer]ner Conversion Note - Historical ProviderMD - 11/04/2019 10:30 PM RN ASSESSMENT [address] [address] Visit Date/Time: 11/04/2019 22:30:37 SHERON CARVAJAL The above patient was seen in the hospital today and needs to be excused from work/school until Return to Work/School Date:11-07-18 Electronically signed by Cristiane Pearson Conversion Grades 1 Through 6 Teacher [employer] at 02/22/2023 12:08 PM CDT documented in this encounter Plan of Treatment Upcoming Encounters Date Type Department Care Team (Late st Contact Info) Description 01/15/2025 2:45 PM EDT Office Visit [facility] - [place] [address] [place] [address] Jayla Ontiveros MD [address] [place] [address] 09/19/2025 2:30 PM EST Appointment [facility] Breast [facility] [address] [place] [address] documented as of this encounter Visit Diagnoses Not on filedocumented in this encounter Care Teams Development Vice President Relationship Specialty Start Date End Date Komal Méndez APRN PCP - General Primary Care 09/07/22 01/03/24 Suzanne Mora, CODY [address] [place] [address] PCP - General Family Medicine 01/04/24 Steven Marcelo MD [address] [place] [address] Surgeon General Surgery 09/07/22 Jayla Ontiveros MD [address] [facility] [address] [place], [place] [id number] Medical Oncologist Hematology and Oncology 09/07/22 Rory, Modesta Walsh, RN Nurse Navigator 03/03/23 03/20/24 documented as of this encounter
--- OUTSIDE RECORDS SUMMARY | 2024-10-05 17:17 | XMS_ITS | Encounter Summary ---
Author Organization [facility] [employer] [facility] Address [address] [place] [address] Care Team Providers Care Competitive Athlete Name Role Phone Komal Méndze Nick ROSS Primary Care Provider + [phone] Steven Marcelo MD Unavailable [phone] Jayla Ontiveros MD Unavailable [phone] Encounter Details Date Type Department Care Team (Late st Contact Info) Description 07/06/2021 Historic Encounter [facility] Radiology [address] [place] [address] Myriam Tomas MD [address] [place] [address] Social History Tobacco Use Types Packs/Day Years [...] Description 01/15/2025 2:45 PM EDT Office Visit [facility] [address] [place] [address] Jayla Ontiveros MD [address] [place] [address] 09/19/2025 2:30 PM EST Appointment [facility] [address] [facility] [address] [place] [address] documented as of this encounter Procedures Procedure Name Priority Date/Time Associated Diagnosis Comments MM DIGITAL MAMMO DIAGNOSTIC WITH JOSE ALBERTO BILATERAL Routine 07/06/2021 11:14 AM EDT documented in this encounter Results * MM digital mammo diagnostic with jose alberto bilateral (07/06/2021 11:14 AM EDT) Anatomical Region Laterality Modality Breast Bilateral Mammography 07/06/2021 11:1 4 AM EDT Narrative 07/06/2021 3:23 PM EDT PROCEDURES: Bilateral diagnostic mammogram with digital tomosynthesis (DBT) REASON FOR EXAM: Follow-up of presumably benign nodule in the left lower inner quadrant. FAMILY HISTORY: There is no family history of breast cancer COMPARISON STUDIES: [id number] from [facility] FINDINGS: Today's mammogram consisted of bilateral craniocaudad and mediolateral oblique views obtained in 2D and 3D (digital tomosynthesis) modes. Also, C-views were reconstructed from the 3D acquisition. A smoothly marginated 4 mm nodule is again visualized in the left lower inner quadrant. It has not changed in size or appearance since 2020 mammogram. There is no evidence of a spiculated mass, architectural distortion, or suspicious calcifications. Mammographic exam was reviewed with the benefit of computed aided detection. FINAL IMPRESSION: ACR BI-RADS 3: Probably benign findings. RECOMMENDATIONS: Bilateral diagnostic mammogram in 12 months. The results and recommendations were discussed with the patient on the day of the appointment. In addition, a written report in lay terms was given to the patient. Density notification was included for patients with pattern 3 or 4 breast tissue. At our facility, a alatna marker is positioned over a visible skin lesion and a linear marker is used to indicate a scar. A triangular marker is placed on a palpable finding. ?? Procedure Note Myriam Tomas MD - 02/22/2023 PROCEDURES: Bilateral diagnostic mammogram with digital tomosynthesis (DBT) REASON FOR EXAM: Follow-up of presumably benign nodule in the left lower inner quadrant. FAMILY HISTORY: There is no family history of breast cancer COMPARISON STUDIES: [id number] from [facility] FINDINGS: Today's mammogram consisted of bilateral craniocaudad and mediolateral oblique views obtained in 2D and 3D (digital tomosynthesis) modes. Also, C-views were reconstructed from the 3D acquisition. A smoothly marginated 4 mm nodule is again visualized in the left lower inner quadrant. It has not changed in size or appearance since 2020 mammogram. There is no evidence of a spiculated mass, architectural distortion, or suspicious calcifications. Mammographic exam was reviewed with the benefit of computed aided detection. FINAL IMPRESSION: ACR BI-RADS 3: Probably benign findings. RECOMMENDATIONS: Bilateral diagnostic mammogram in 12 months. The results and recommendations were discussed with the patient on the day of the appointment. In addition, a written report in lay terms was given to the patient. Density notification was included for patients with pattern 3 or 4 breast tissue. At our facility, a alatna marker is positioned over a visible skin lesion and a linear marker is used to indicate a scar. A triangular marker is placed on a palpable finding. us Myriam Tomas MD IMG MAMMOGRAPHY ORDERABLES Fin al Result documented in this encounter Visit Diagnoses Not on filedocumented in this encounter Care Teams Competitive Athlete Relationship Specialty Start Date End Date Komal Méndez, SUPERINTENDENT TERMINAL PCP - General Primary Care 09/07/22 01/03/24 Steven Marcelo MD [address] [facility] [address] [place] [address] Surgeon General Surgery 09/07/22 Jayla Ontiveros MD [address] [facility] [address] [place] [address] Medical Oncologist Hematology and Oncology 09/07/22 documented as of this encounter
--- OUTSIDE RECORDS SUMMARY | 2024-10-05 17:17 | XMS_ITS | Encounter Summary ---
Author Organization [employer] Address [address] [place] [address] Care Team Providers Care Labor Relations Officer Name Role Phone Komal Méndez Nick ROSS Primary Care Provider + [phone] Steven Marcelo MD Unavailable [phone] Jayla Ontiveros MD Unavailable [phone] Encounter Details Date Type Department Care Team (Late st Contact Info) Description 04/30/2021 Historic Encounter [facility] Radiology 1 [place] [address] Glen Wong MD [facility] [place] [address] Social History Tobacco Use Types Packs/Day Years [...] Description 01/15/2025 2:45 PM EDT Office Visit [facility] [address] [place] [address] Jayla Ontiveros MD [address] [place] [address] 09/19/2025 2:30 PM EST Appointment [facility] [address] [facility] [address] [place] [address] documented as of this encounter Procedures Procedure Name Priority Date/Time Associated Diagnosis Comments CT BRAIN WITHOUT IV CONTRAST Routine 04/30/2021 5:28 PM EDT documented in this encounter Results * CT brain without IV contrast (04/30/2021 5:28 PM EDT) Anatomical Region Laterality Modality Brain, Head Computed Tomogra phy 04/30/2021 5:28 PM EDT Narrative 04/30/2021 10:[address] WITHOUT CONTRAST ?04/30/2021 4:30 PM HISTORY: Headache. COMPARISON: None. TECHNIQUE: Multiple axial CT images were performed from the foramen magnum to the vertex without enhancement. This study was performed with techniques to keep radiation doses as low as reasonably achievable, (ALARA). Individualized dose reduction techniques using automated exposure control or adjustment of mA and/or kV according to the patient size were employed. FINDINGS: There is a CSF density oval structure in the right basal ganglia likely worsening a dilated perivascular space. The ventricles are normal in size. There is no evidence of hemorrhage. ??No masses are identified. ??No extra-axial fluid is seen. ??The sinuses are normal. ? IMPRESSION: No acute intracranial process. ?? Images reviewed, interpreted, and dictated by Dr. Glen Wong. Transcribed by Chip Merino PA-C, RDaquanT. (N), C N M T. I have personally viewed, interpreted and dictated the examination. I have read and agree with the above final transcribed report. Procedure Note Glen Wong MD - 02/22/[address] WITHOUT CONTRAST 04/30/2021 4:30 PM HISTORY: Headache. COMPARISON: None. TECHNIQUE: Multiple axial CT images were performed from the foramen magnum to the vertex without enhancement. This study was performed with techniques to keep radiation doses as low as reasonably achievable, (ALARA). Individualized dose reduction techniques using automated exposure control or adjustment of mA and/or kV according to the patient size were employed. FINDINGS: There is a CSF density oval structure in the right basal ganglia likely worsening a dilated perivascular space. The ventricles are normal in size. There is no evidence of hemorrhage. No masses are identified. No extra-axial fluid is seen. The sinuses are normal. IMPRESSION: No acute intracranial process. Images reviewed, interpreted, and dictated by Dr. Glen Wong. Transcribed by Chip Merino PA-C, R.T. (N), C N M T. I have personally viewed, interpreted and dictated the examination. I have read and agree with the above final transcribed report. Glen Wong MD IMG CT ORDERABLES Final Result documented in this encounter Visit Diagnoses Not on filedocumented in this encounter Care Teams Labor Relations Officer Relationship Specialty Start Date End Date Komal Méndez, STUDENT SERVICES ADVISOR PCP - General Primary Care 09/07/22 01/03/24 Steven Marcelo MD [address] [facility] [address] [place] [address] Surgeon General Surgery 09/07/22 Jayla Ontiveros MD [address] [facility] [address] [place] [address] Medical Oncologist Hematology and Oncology 09/07/22 documented as of this encounter
--- OUTSIDE RECORDS SUMMARY | 2024-10-05 17:17 | XMS_ITS | Encounter Summary ---
Author Organization [facility] Address [address] [place] [address] Care Team Providers Care Um Nurse Name Role Phone Irene Méndezh Nick ROSS Primary Care Provider + [phone] Steven Marcelo MD Unavailable [phone] Oumou Ontiveros MD Unavailable [phone] Modesta Valadez RN Unavailable Unavailable Suzanne Mora APRN Primary Care Provider [phone] Encounter Details Date Type Department Care Team (Late st Contact Info) Description 11/04/2019 Transcribed Document [facility] Family Medicine [place] [address] ProviderNimisha MD [address] [place] [address] Social History Tobacco Use Types Packs/Day Years Used Date Smoking Tobacco: Never Assessed Comments Unknown Sex and Gender Information Value Date Recorded Sex Assigned at Not on file Legal Sex Female 4:30 PM CDT Gender Identity Not on file Sexual Orientation Not on file documented as of this encounter Miscellaneous Notes * Cerner Conversion Note - Historical ProviderMD - 11/04/2019 5:07 PM CAP BLOCKER [place] Suicide Severity Rating Scale (C-SSRS) Entered On: 11/04/2019 18:06 EST Performed On: 11/04/2019 18:05 EST by OUMOU SIMS RN [place] Suicide Severity Rating Scale (C-SSRS) CSSRS Past Month Wish to be : No CSSRS Past Month Suicidal Thoughts : No CSSRS Lifetime Suicide Behavior : No Suicide Severity Rating Score : 0 Suicide Severity Rating : No Additional Care Required at this time OUMOU SIMS RN - 11/04/2019 18:05 EST Electronically signed by L[facility] Conversion Dispatcher [employer] at 02/22/2023 12:09 PM CDT documented in this encounter Plan of Treatment Upcoming Encounters Date Type Department Care Team (Late st Contact Info) Description 01/15/2025 2:45 PM EDT Office Visit [facility] [place] [address] [place] [address] Oumou Ontiveros MD [address] [facility] [address] [place], [place] [id number] 09/19/2025 2:30 PM EST Appointment [facility] Breast [facility] [address] [place] [address] documented as of this encounter Visit Diagnoses Not on filedocumented in this encounter Care Teams Um Nurse Relationship Specialty Start Date End Date Komal Méndez, LATRINE CLEANER PCP - General Primary Care 09/07/22 01/03/24 Suzanne Mora, CODY [address] [facility] [address] [place] [address] PCP - General Family Medicine 01/04/24 Steven Marcelo MD [address] [place] [address] Surgeon General Surgery 09/07/22 Oumou Ontiveros MD [address] [facility] [address] [place] [address] Medical Oncologist Hematology and Oncology 09/07/22 Rory, Modesta Walsh RN Nurse Navigator 03/03/23 03/20/24 documented as of this encounter
--- OUTSIDE RECORDS SUMMARY | 2024-10-05 17:17 | XMS_ITS | Encounter Summary ---
Author Organization [facility] [employer] Address [address] [place] [address] Care Team Providers Care Aircraft Engine Installer Name Role Phone Irene Méndezh Nick ROSS Primary Care Provider + [phone] Steven Marcelo MD Unavailable [phone] Jayla Ontiveros MD Unavailable [phone] Modesta Valadez RN Unavailable Unavailable Suzanne Mora APRN Primary Care Provider [phone] Encounter Details Date Type Department Care Team (Late st Contact Info) Description 06/18/2022 Transcribed Document [facility] [place] [facility] [place] [address] ProviderNimisha MD [address] [place] [address] Social History Tobacco Use Types [...] Historical ProviderMD - 06/18/2022 9:42 AM CDT [place] Violence Assessment Entered On: 06/18/2022 10:28 EDT Performed On: 06/18/2022 10:28 EDT by Carlita Riddle, RN Broset Violence Assessment [place] Violence Checklist of Symptoms : None Broset Violence Symptoms Subtotal : 0 Broset Violence Symptoms Indicator : Low risk (0) Carlita Riddle, RN - 06/18/2022 10:28 EDT documented in this encounter Plan of Treatment Upcoming Encounters Date Type Department Care Team (Late st Contact Info) Description 01/15/2025 2:45 PM EDT Office Visit [facility] [address] [place] [address] Jayla Ontiveros MD [address] [facility] [address] [place], [place] [id number] 09/19/2025 2:30 PM EST Appointment [facility] Breast [facility] [address] [facility] [address] [place] [address] documented as of this encounter Visit Diagnoses Not on filedocumented in this encounter Care Teams Aircraft Engine Installer Relationship Specialty Start Date End Date Komal Méndez APRN PCP - General Primary Care 09/07/22 01/03/24 Suzanne Mora APRN [address] [facility] [address] [place] [address] PCP - General Family Medicine 01/04/24 Steven Marcelo MD [address] [facility] [address] [place] [address] Surgeon General Surgery 09/07/22 Jayla Ontiveros MD [address] [facility] [address] [place], [place] [id number] Medical Oncologist Hematology and Oncology 09/07/22 Modesta Valadez, RN Nurse Navigator 03/03/23 03/20/24 documented as of this encounter
--- OUTSIDE RECORDS SUMMARY | 2024-10-05 17:17 | XMS_ITS | Encounter Summary ---
Author Organization [employer] Address [address] [place] [address] Care Team Providers Care Manager Store Name Role Phone Komal Méndez APRN Primary Care Provider + [phone] Steven Marcelo MD Unavailable [phone] Jayla Ontiveros MD Unavailable [phone] Modesta Valadez RN Unavailable Unavailable Suzanne Mora APRN Primary Care Provider [phone] Encounter Details Date Type Department Care Team (Late st Contact Info) Description 04/29/2022 Transcribed Document [facility] Family Medicine [facility] [place] [address] ProviderNimisha MD [address] [place] [address] Social History Tobacco Use Types Packs/Day Years Used Date Smoking Tobacco: Never Assessed Comments Unknown Sex and Gender Information Value Date Recorded Sex Assigned at Not on file Legal Sex Female 4:30 PM CDT Gender Identity Not on file Sexual Orientation Not on file documented as of this encounter Miscellaneous Notes * Cerner Conversion Note - Historical ProviderMD - 04/29/2022 7:00 PM CDT [place] Suicide Severity Rating Scale (C-SSRS) Entered On: 04/29/2022 20:28 EDT Performed On: 04/29/2022 20:26 EDT by ABBIE HINOJOSA, JUDY [place] Suicide Severity Rating Scale (C-SSRS) CSSRS Past Month Wish to be : No CSSRS Past Month Suicidal Thoughts : No CSSRS Lifetime Suicide Behavior : No Suicide Severity Rating Score : 0 Suicide Severity Rating : No Additional Care Required at this time ABBIE HINOJOSA, RN - 04/29/2022 20:26 EDT documented in this encounter Plan of Treatment Upcoming Encounters Date Type Department Care Team (Late st Contact Info) Description 01/15/2025 2:45 PM EDT Office Visit [facility] [place] [address] [place] [address] Jayla Ontiveros MD [address] [facility] [address] [place], [place] [id number] 09/19/2025 2:30 PM EST Appointment [facility] Breast [facility] [address] [place] [address] documented as of this encounter Visit Diagnoses Not on filedocumented in this encounter Care Teams Manager Store Relationship Specialty Start Date End Date Komal Méndez, AIRPORT REFUELING HANDLER PCP - General Primary Care 09/07/22 01/03/24 Suzanne Mora, CODY [address] [facility] [address] [place] [address] PCP - General Family Medicine 01/04/24 Steven Marcelo MD [address] [place] [address] Surgeon General Surgery 09/07/22 Jayla Ontiveros MD [address] [facility] [address] [place] [address] Medical Oncologist Hematology and Oncology 09/07/22 Modesta Valadez RN Nurse Navigator 03/03/23 03/20/24 documented as of this encounter
--- OUTSIDE RECORDS SUMMARY | 2024-10-05 17:17 | XMS_ITS | Encounter Summary ---
Author Organization [employer] Address [address] [place] [address] Care Team Providers Care Banquet Director Name Role Phone Irene Méndezh Nick ROSS Primary Care Provider + [phone] Steven Marcelo MD Unavailable [phone] Jayla Ontiveros MD Unavailable [phone] Modesta Valadez RN Unavailable Unavailable Suzanne Mora APRN Primary Care Provider [phone] Encounter Details Date Type Department Care Team (Late st Contact Info) Description 06/18/2022 Transcribed Document [facility] [place] [facility] [place] [address] ProviderNimisha MD [address] [place] [address] Social History Tobacco Use Types [...] Historical ProviderMD - 06/18/2022 12:29 PM CDT [address] [address] SHERON CARVAJAL :1950 Visit Time:06/18/2022 Your Visit Summary Your Care Team Primary Provider: KIM REAGAN Secondary Provider: Your Diagnosis Cough Cough COVID-19 Medical Information You may obtain a copy of your Emergency Department visit from Medical Records by calling the hospital phone number listed above and asking to be directed to the Medical Records Department. If you had special tests, such as EKG???s or X-rays, the interpretation of your tests given to you by the Emergency Department Physician is a preliminary report. Some fractures and illnesses fail to show up on preliminary tests. These will be reviewed again and we will call you if there are any new suggestions. If your symptoms continue notify your physician. After you leave, you should follow the instructions provided. What to do next Follow-Up Appointments Follow Up with Return to emergency department When Within 2 to 3 days Follow Up with [facility] (Find a Doc) When Within 2 to 3 days Where: [place] [address]- [facility] (1) Follow Up with [facility] (Find a Doc) When Within 2 to 3 days Where: [place] [address]- [facility] (1) Follow Up with RADHA MÉNDEZ When Within 2 to 3 days Comments Call for follow up appointment with PCP Talk to your manager wireless or PCP before you start taking Paxlovid Allergies No Known Medication Allergies Immunizations This Visit No Immunizations Found Medications What How Much When Instructions Next Dose nirmatrelvir-ritonavir (Paxlovid 150 mg-100 mg (300 mg-100 mg Dose) oral tablet) 1 Each Oral Every 12 hours Duration: 5 Day(s) Paxlovid - Moderate Renal; 1 each = 150 mg nimatrelvir (1 x 150 mg tab) and 100 mg ritonavir (1 x 100 mg tab) Pickup at [facility] 493 amLODIPine 5 Milligram(s) Oral Every Day apixaban (Eliquis) 5 Milligram(s) Oral Two Times A Day ferrous sulfate 325 Milligram(s) Oral Every Day lisinopril (lisinopril 10 mg oral tablet) 4 Tablet(s) Oral Every Day metoprolol (Metoprolol Tartrate 25 mg oral tablet) Oral Two Times A Day Non Formulary (Non Formulary Medication) Oral Every Day 1000 unit, vitamin D Pharmacy Information [facility]: [phone], [place] [phone] The home medications listed are only as accurate as the information you provided. Please continue taking all of your medications prescribed by your Primary Care Provider unless specifically told to change or discontinue the medication. Please direct any questions regarding your home medications to your Primary Care Provider. Take your medications faithfully. Do NOT skip medication. Do NOT stop taking medications without the direction of a physician. Carry a list of your medications with you at all times, and take this medication list with you to your first follow up visit. Report any side effects. Avoid herbal remedies unless discussed with your physician. As part of your treatment plan, your physician may have prescribed a limited course of a controlled substance. This medication may be given to help people with moderate or severe pain or for other medical conditions, but there are risks involved with treatment. Common side effects may include nausea, constipation, drowsiness, sweating, itching, dry mouth, and rash. More serious side effects may include cognitive and motor impairment, like problems with thinking, concentrating, alertness, and movement (e.g. slowed reflexes), and driving and operating heavy machinery can be dangerous. It is important for you to talk to your physician if you have these side effects or questions. These controlled substances can produce physical dependence and be habit-forming if taken for an extended period of time, which means that the body has gotten used to them and may experience withdrawal symptoms if they are abruptly stopped. Withdrawal symptoms can include runny nose, sweating, goose bumps, diarrhea, abdominal cramping, rapid heartbeat, difficulty sleeping, and nervousness. Please dispose of unused and medications per pharmacy guidance. Test Results Laboratory or Other Results This Visit (last charted value for your 06/18/2022 visit) Microbiology 06/18/2022 10:38 AM Influenza A: Not Detected Respiratory Syncytial Virus: Not Detected Influenza B: Not Detected Influenza A H3: Not Detected Parainfluenza 3: Not Detected Influenza A H1: Not Detected Rhinovirus/Enterovirus: Not Detected Human metapneumovirus: Not Detected Parainfluenza 1: Not Detected Parainfluenza 2: Not Detected Adenovirus: Not Detected Parainfluenza 4: Not Detected Bordatella pertussis: Not Detected Coronavirus HKU1: Not Detected Coronavirus NL63: Not Detected Coronavirus OC43: Not Detected Coronavirus 229E: Not Detected Influenza A 2009 H1N1: Not Detected Mycoplasma pneumoniae: Not Detected Chlamydia pneumoniae: Not Detected SARS-CoV-2 (COVID19 PCR): Detected Bordatella parapertussis: Not Detected Molecular Testing 06/18/2022 10:38 AM Group A Strep PCR: Negative Group C/G Strep PCR: Negative Diagnostic Radiology 06/18/2022 11:25 AM CR Chest 1 Vw Portable: CR Chest 1 Vw Portable Education Materials COVID-19: Quarantine and Isolation Quarantine If you were exposed Quarantine and stay away from others when you have been in close contact with someone who has COVID-19. Isolate If you are sick or test positive Isolate when you are sick or when you have COVID-19, even if you don't have symptoms. When to stay home Calculating quarantine The date of your exposure is considered day 0. Day 1 is the first full day after your last contact with a person who has had COVID-19. Stay home and away from other people for at least 5 days. Learn why CDC updated guidance for the general public. IF YOU were exposed to COVID-19 and are NOT up to dateIF YOU were exposed to COVID-19 and are NOT on COVID-19 vaccinations ??? Quarantine for at least 5 days ? Stay home ? Stay home and quarantine for at least 5 full days. ? Wear a well-fitting mask if you must be around others in your home. ? Do not travel. ? Get tested ? Even if you don't develop symptoms, get tested at least 5 days after you last had close contact with someone with COVID-19. ??? After quarantine ? Watch for symptoms ? Watch for symptoms until 10 days after you last had close contact with someone with COVID-19. ? Avoid travel ? It is best to avoid travel until a full 10 days after you last had close contact with someone with COVID-19. ? If you develop symptoms ? Isolate immediately and get tested. Continue to stay home until you know the results. Wear a well-fitting mask around others. ??? Take precautions until day 10 ? Wear a well-fitting mask ? Wear a well-fitting mask for 10 full days any time you are around others inside your home or in public. Do not go to places where you are unable to wear a well-fitting mask. ? If you must travel during days 6???10, take precautions. ? Avoid being around people who are more likely to get very sick from COVID-19. IF YOU were exposed to COVID-19 and are up to dateIF YOU were exposed to COVID-19 and are on COVID-19 vaccinations ??? No quarantine ? You do not need to stay home unless you develop symptoms. ??? Get tested ? Even if you don't develop symptoms, get tested at least 5 days after you last had close contact with someone with COVID-19. ??? Watch for symptoms ? Watch for symptoms until 10 days after you last had close contact with someone with COVID-19. ? If you develop symptoms ? Isolate immediately and get tested. Continue to stay home until you know the results. Wear a well-fitting mask around others. ??? Take precautions until day 10 ? Wear a well-fitting mask ? Wear a well-fitting mask for 10 full days any time you are around others inside your home or in public. Do not go to places where you are unable to wear a well-fitting mask. ? Take precautions if traveling ? Avoid being around people who are more likely to get very sick from COVID-19. IF YOU were exposed to COVID-19 and had confirmed COVID-19 within the past 90 days (you tested positive using a viral test) ??? No quarantine ? You do not need to stay home unless you develop symptoms. ??? Watch for symptoms ? Watch for symptoms until 10 days after you last had close contact with someone with COVID-19. ? If you develop symptoms ? Isolate immediately and get tested. Continue to stay home until you know the results. Wear a well-fitting mask around others. ??? Take precautions until day 10 ? Wear a well-fitting mask ? Wear a well-fitting mask for 10 full days any time you are around others inside your home or in public. Do not go to places where you are unable to wear a well-fitting mask. ? Take precautions if traveling ? Avoid being around people who are more likely to get very sick from COVID-19. Calculating isolation Day 0 is your first day of symptoms or a positive viral test. Day 1 is the first full day after your symptoms developed or your test specimen was collected. If you have COVID-19 or have symptoms, isolate for at least 5 days. IF YOU tested positive for COVID-19 or have symptoms, regardless of vaccination status ??? Stay home for at least 5 days ? Stay home for 5 days and isolate from others in your home. ? Wear a well-fitting mask if you must be around others in your home. ? Do not travel. ??? Ending isolation if you had symptoms ? End isolation after 5 full days if you are fever-free for 24 hours (without the use of fever-reducing medication) and your symptoms are improving. ??? Ending isolation if you did NOT have symptoms ? End isolation after at least 5 full days after your positive test. ??? If you got very sick from COVID-19 or have a weakened immune system ? You should isolate for at least 10 days. Consult your doctor before ending isolation. ??? Take precautions until day 10 ? Wear a well-fitting mask ? Wear a well-fitting mask for 10 full days any time you are around others inside your home or in public. Do not go to places where you are unable to wear a well-fitting mask. ? Do not travel ? Do not travel until a full 10 days after your symptoms started or the date your positive test was taken if you had no symptoms. ? Avoid being around people who are more likely to get very sick from COVID-19. Definitions Exposure Contact with someone infected with SARS-CoV-2, the virus that causes COVID-19, in a way that increases the likelihood of getting infected with the virus. Close contact A close contact is someone who was less than 6 feet away from an infected person (laboratory-confirmed or a clinical diagnosis) for a cumulative total of 15 minutes or more over a 24-hour period. For example, three individual 5-minute exposures for a total of 15 minutes. People who are exposed to someone with COVID-19 after they completed at least 5 days of isolation are not considered close contacts. Quarantine Quarantine is a strategy used to prevent transmission of COVID-19 by keeping people who have been in close contact with someone with COVID-19 apart from others. Who does not need to quarantine? If you had close contact with someone with COVID-19 and you are in one of the following groups, you do not need to quarantine. ??? You are up to date with your COVID-19 vaccines. ??? You had confirmed COVID-19 within the last 90 days (meaning you tested positive using a viral test). If you are up to date with COVID-19 vaccines, you should wear a well-fitting mask around others for 10 days from the date of your last close contact with someone with COVID-19 (the date of last close contact is considered day 0). Get tested at least 5 days after you last had close contact with someone with COVID-19. If you test positive or develop COVID-19 symptoms, isolate from other people and follow recommendations in the Isolation section below. If you tested positive for COVID-19 with a viral test within the previous 90 days and subsequently recovered and remain without COVID-19 symptoms, you do not need to quarantine or get tested after close contact. You should wear a well-fitting mask around others for 10 days from the date of your last close contact with someone with COVID-19 (the date of last close contact is considered day 0). If you have COVID-19 symptoms, get tested and isolate from other people and follow recommendations in the Isolation section below. Who should quarantine? If you come into close contact with someone with COVID-19, you should quarantine if you are not up to date on COVID-19 vaccines. This includes people who are not vaccinated. What to do for quarantine ??? Stay home and away from other people for at least 5 days (day 0 through day 5) after your last contact with a person who has COVID-19. The date of your exposure is considered day 0. Wear a well-fitting mask when around others at home, if possible. ??? For 10 days after your last close contact with someone with COVID-19, watch for fever (100.4??F or greater), cough, shortness of breath, or other COVID-19 symptoms. ??? If you develop symptoms, get tested immediately and isolate until you receive your test results. If you test positive, follow isolation recommendations. ??? If you do not develop symptoms, get tested at least 5 days after you last had close contact with someone with COVID-19. ? If you test negative, you can leave your home, but continue to wear a well-fitting mask when around others at home and in public until 10 days after your last close contact with someone with COVID-19. ? If you test positive, you should isolate for at least 5 days from the date of your positive test (if you do not have symptoms). If you do develop COVID-19 symptoms, isolate for at least 5 days from the date your symptoms began (the date the symptoms started is day 0). Follow recommendations in the isolation section below. ? If you are unable to get a test 5 days after last close contact with someone with COVID-19, you can leave your home after day 5 if you have been without COVID-19 symptoms throughout the 5-day period. Wear a well-fitting mask for 10 days after your date of last close contact when around others at home and in public. ? Avoid people who are have weakened immune systems or are more likely to get very sick from COVID-19, and nursing homes and other high-risk settings, until after at least 10 days. ??? If possible, stay away from people you live with, especially people who are at higher risk for getting very sick from COVID-19, as well as others outside your home throughout the full 10 days after your last close contact with someone with COVID-19. ??? If you are unable to quarantine, you should wear a well-fitting mask for 10 days when around others at home and in public. ??? If you are unable to wear a mask when around others, you should continue to quarantine for 10 days. Avoid people who have weakened immune systems or are more likely to get very sick from COVID-19, and nursing homes and other high-risk settings, until after at least 10 days. ??? See additional information about travel. ??? Do not go to places where you are unable to wear a mask, such as restaurants and some gyms, and avoid eating around others at home and at work until after 10 days after your last close contact with someone with COVID-19. After quarantine ??? Watch for symptoms until 10 days after your last close contact with someone with COVID-19. ??? If you have symptoms, isolate immediately and get tested. Quarantine in high-risk congregate settings In certain congregate settings that have high risk of secondary transmission (such as correctional and retirement facilities, homeless shelters, or cruise ships), CDC recommends a 10-day quarantine for residents, regardless of vaccination and booster status. During periods of critical staffing shortages, facilities may consider shortening the quarantine period for staff to ensure continuity of operations. Decisions to shorten quarantine in these settings should be made in consultation with state, local, [place], or territorial health departments and should take into consideration the context and characteristics of the facility. CDC's setting-specific guidance provides additional recommendations for these settings. Isolation Isolation is used to separate people with confirmed or suspected COVID-19 from those without COVID-19. People who are in isolation should stay home until it's safe for them to be around others. At home, anyone sick or infected should separate from others, or wear a well-fitting mask when they need to be around others. People in isolation should stay in a specific sick room or area and use a separate bathroom if available. Everyone who has presumed or confirmed COVID-19 should stay home and isolate from other people for at least 5 full days (day 0 is the first day of symptoms or the date of the day of the positive viral test for asymptomatic persons). They should wear a mask when around others at home and in public for an additional 5 days. People who are confirmed to have COVID-19 or are showing symptoms of COVID-19 need to isolate regardless of their vaccination status. This includes: ??? People who have a positive viral test for COVID-19, regardless of whether or not they have symptoms. ??? People with symptoms of COVID-19, including people who are awaiting test results or have not been tested. People with symptoms should isolate even if they do not know if they have been in close contact with someone with COVID-19. What to do for isolation ??? Monitor your symptoms. If you have an emergency warning sign (including trouble breathing), seek emergency medical care immediately. ??? Stay in a separate room from other household members, if possible. ??? Use a separate bathroom, if possible. ??? Take steps to improve ventilation at home, if possible. ??? Avoid contact with other members of the household and pets. ??? Don't share personal household items, like cups, towels, and utensils. ??? Wear a well-fitting mask when you need to be around other people. Learn more about what to do if you are sick and how to notify your contacts. Ending isolation for people who had COVID-19 and had symptoms If you had COVID-19 and had symptoms, isolate for at least 5 days. To calculate your 5-day isolation period, day 0 is your first day of symptoms. Day 1 is the first full day after your symptoms developed. You can leave isolation after 5 full days. ??? You can end isolation after 5 full days if you are fever-free for 24 hours without the use of fever-reducing medication and your other symptoms have improved (Loss of taste and smell may persist for weeks or months after recovery and need not delay the end of isolation). ??? You should continue to wear a well-fitting mask around others at home and in public for 5 additional days (day 6 through day 10) after the end of your 5-day isolation period. If you are unable to wear a mask when around others, you should continue to isolate for a full 10 days. Avoid people who have weakened immune systems or are more likely to get very sick from COVID-19, and nursing homes and other high-risk settings, until after at least 10 days. ??? If you continue to have fever or your other symptoms have not improved after 5 days of isolation, you should wait to end your isolation until you are fever-free for 24 hours without the use of fever-reducing medication and your other symptoms have improved. Continue to wear a well-fitting mask through day 10. Contact your healthcare provider if you have questions. ??? See additional information about travel. ??? Do not go to places where you are unable to wear a mask, such as restaurants and some gyms, and avoid eating around others at home and at work until a full 10 days after your first day of symptoms. If an individual has access to a test and wants to test, the best approach is to use an antigen test1 towards the end of the 5-day isolation period. Collect the test sample only if you are fever-free for 24 hours without the use of fever-reducing medication and your other symptoms have improved (loss of taste and smell may persist for weeks or months after recovery and need not delay the end of isolation). If your test result is positive, you should continue to isolate until day 10. If your test result is negative, you can end isolation, but continue to wear a well-fitting mask around others at home and in public until day 10. Follow additional recommendations for masking and avoiding travel as described above. 1As noted in the labeling for authorized over-the counter antigen tests: Negative results should be treated as presumptive. Negative results do not rule out SARS-CoV-2 infection and should not be used as the sole basis for treatment or patient management decisions, including infection control decisions. To improve results, antigen tests should be used twice over a three-day period with at least 24 hours and no more than 48 hours between tests. Note that these recommendations on ending isolation do not apply to people who are moderately ill or very sick from COVID-19 or have weakened immune systems. See section below for recommendations for when to end isolation for these groups. Ending isolation for people who tested positive for COVID-19 but had no symptoms If you test positive for COVID-19 and never develop symptoms, isolate for at least 5 days. Day 0 is the day of your positive viral test (based on the date you were tested) and day 1 is the first full day after the specimen was collected for your positive test. You can leave isolation after 5 full days. ??? If you continue to have no symptoms, you can end isolation after at least 5 days. ??? You should continue to wear a well-fitting mask around others at home and in public until day 10 (day 6 through day 10). If you are unable to wear a mask when around others, you should continue to isolate for 10 days. Avoid people who have weakened immune systems or are more likely to get very sick from COVID-19, and nursing homes and other high-risk settings, until after at least 10 days. ??? If you develop symptoms after testing positive, your 5-day isolation period should start over. Day 0 is your first day of symptoms. Follow the recommendations above for ending isolation for people who had COVID-19 and had symptoms. ??? See additional information about travel. ??? Do not go to places where you are unable to wear a mask, such as restaurants and some gyms, and avoid eating around others at home and at work until 10 days after the day of your positive test. If an individual has access to a test and wants to test, the best approach is to use an antigen test1 towards the end of the 5-day isolation period. If your test result is positive, you should continue to isolate until day 10. If your test result is positive, you can also choose to test daily and if your test result is negative, you can end isolation, but continue to wear a well-fitting mask around others at home and in public until day 10. Follow additional recommendations for masking and avoiding travel as described above. 1As noted in the labeling for authorized over-the counter antigen tests: Negative results should be treated as presumptive. Negative results do not rule out SARS-CoV-2 infection and should not be used as the sole basis for treatment or patient management decisions, including infection control decisions. To improve results, antigen tests should be used twice over a three-day period with at least 24 hours and no more than 48 hours between tests. Ending isolation for people who were moderately or very sick from COVID-19 or have a weakened immune system People who are moderately ill from COVID-19 (experiencing symptoms that affect the lungs like shortness of breath or difficulty breathing) should isolate for 10 days and follow all other isolation precautions. To calculate your 10-day isolation period, day 0 is your first day of symptoms. Day 1 is the first full day after your symptoms developed. If you are unsure if your symptoms are moderate, talk to a healthcare provider for further guidance. People who are very sick from COVID-19 (this means people who were hospitalized or required intensive care or ventilation support) and people who have weakened immune systems might need to isolate at home longer. They may also require testing with a viral test to determine when they can be around others. CDC recommends an isolation period of at least 10 and up to 20 days for people who were very sick from COVID-19 and for people with weakened immune systems. Consult with your healthcare provider about when you can resume being around other people. If you are unsure if your symptoms are severe or if you have a weakened immune system, talk to a healthcare provider for further guidance. People who have a weakened immune system should talk to their healthcare provider about the potential for reduced immune responses to COVID-19 vaccines and the need to continue to follow current prevention measures (including wearing a well-fitting mask and avoiding crowds and poorly ventilated indoor spaces) to protect themselves against COVID-19 until advised otherwise by their healthcare provider. Close contacts of immunocompromised people???including household members???should also be encouraged to receive all recommended COVID-19 vaccine doses to help protect these people. Isolation in high-risk congregate settings In certain high-risk congregate settings that have high risk of secondary transmission and where it is not feasible to cohort people (such as correctional and retirement facilities, homeless shelters, and cruise ships), CDC recommends a 10-day isolation period for residents. During periods of critical staffing shortages, facilities may consider shortening the isolation period for staff to ensure continuity of operations. Decisions to shorten isolation in these settings should be made in consultation with state, local, [place], or territorial health departments and should take into consideration the context and characteristics of the facility. CDC's setting-specific guidance provides additional recommendations for these settings. This CDC guidance is meant to supplement???not replace???any federal, state, local, territorial, or [place] health and safety laws, rules, and regulations. Recommendations for specific settings These recommendations do not apply to healthcare professionals. For guidance specific to these settings, see ??? Healthcare professionals: Interim Guidance for Managing Healthcare Personnel with SARS-CoV-2 Infection or Exposure to SARS-CoV-2 ??? Patients, residents, and visitors to healthcare settings: Interim Infection Prevention and Control Recommendations for Healthcare Personnel During the Coronavirus Disease 2019 (COVID-19) Pandemic Additional setting-specific guidance and recommendations are available. ??? These recommendations on quarantine and isolation do apply to K-12 School settings. Additional guidance is available here: Overview of COVID-19 Quarantine for K-12 Schools ??? Travelers: Travel information and recommendations ??? Congregate facilities and other settings: guidance pages for community, work, and school settings Ongoing COVID-19 exposure FAQs I live with someone with COVID-19, but I cannot be from them. How do we manage quarantine in this situation? It is very important for people with COVID-19 to remain apart from other people, if possible, even if they are living together. If separation of the person with COVID-19 from others that they live with is not possible, the other people that they live with will have ongoing exposure, meaning they will be repeatedly exposed until that person is no longer able to spread the virus to other people. In this situation, there are precautions you can take to limit the spread of COVID-19: ??? The person with COVID-19 and everyone they live with should wear a well-fitting mask inside the home. ??? If possible, one person should care for the person with COVID-19 to limit the number of people who are in close contact with the infected person. ??? Take steps to protect yourself and others to reduce transmission in the home: ? Quarantine if you are not up to date with your COVID-19 vaccines. ? Isolate if you are sick or tested positive for COVID-19, even if you don't have symptoms. ? Learn more about the public health recommendations for testing, mask use and quarantine of close contacts, like yourself, who have ongoing exposure. These recommendations differ depending on your vaccination status. What should I do if I have ongoing exposure to COVID-19 from someone I live with? Recommendations for this situation depend on your vaccination status: If you are not up to date on COVID-19 vaccines and have ongoing exposure to COVID-19, you should: ??? Begin quarantine immediately and continue to quarantine throughout the isolation period of the person with COVID-19. ??? Continue to quarantine for an additional 5 days starting the day after the end of isolation for the person with COVID-19. ??? Get tested at least 5 days after the end of isolation of the infected person that lives with them. ? If you test negative, you can leave the home but should continue to wear a well-fitting mask when around others at home and in public until 10 days after the end of isolation for the person with COVID-19. ??? Isolate immediately if you develop symptoms of COVID-19 or test positive. If you are up to date with COVID-19 vaccines and have ongoing exposure to COVID-19, you should: ??? Get tested at least 5 days after your first exposure. A person with COVID-19 is considered infectious starting 2 days before they develop symptoms, or 2 days before the date of their positive test if they do not have symptoms. ??? Get tested again at least 5 days after the end of isolation for the person with COVID-19. ??? Wear a well-fitting mask when you are around the person with COVID-19, and do this throughout their isolation period. ??? Wear a well-fitting mask around others for 10 days after the infected person's isolation period ends. Isolate immediately if you develop symptoms of COVID-19 or test positive. What should I do if multiple people I live with test positive for COVID-19 at different times? Recommendations for this situation depend on your vaccination status: ??? If you are not up to date with your COVID-19 vaccines, you should: ? Quarantine throughout the isolation period of any infected person that you live with. ? Continue to quarantine until 5 days after the end of isolation date for the most recently infected person that lives with you. For example, if the last day of isolation of the person most recently infected with COVID-19 was May 06, the new 5-day quarantine period starts on May 07. ? Get tested at least 5 days after the end of isolation for the most recently infected person that lives with you. ? Wear a well-fitting mask when you are around any person with COVID-19 while that person is in isolation. ? Wear a well-fitting mask when you are around other people until 10 days after your last close contact. ? Isolate immediately if you develop symptoms of COVID-19 or test positive. ??? If you are up to date with your COVID-19 vaccines, you should: ? Get tested at least 5 days after your first exposure. A person with COVID-19 is considered infectious starting 2 days before they developed symptoms, or 2 days before the date of their positive test if they do not have symptoms. ? Get tested again at least 5 days after the end of isolation for the most recently infected person that lives with you. ? Wear a well-fitting mask when you are around any person with COVID-19 while that person is in isolation. ? Wear a well-fitting mask around others for 10 days after the end of isolation for the most recently infected person that lives with you. For example, if the last day of isolation for the person most recently infected with COVID-19 was May 06, the new 10-day period to wear a well-fitting mask indoors in public starts on May 07. ? Isolate immediately if you develop symptoms of COVID-19 or test positive. I had COVID-19 and completed isolation. Do I have to quarantine or get tested if someone I live with gets COVID-19 shortly after I completed isolation? No. If you recently completed isolation and someone that lives with you tests positive for the virus that causes COVID-19 shortly after the end of your isolation period, you do not have to quarantine or get tested as long as you do not develop new symptoms. Once all of the people that live together have completed isolation or quarantine, refer to the guidance below for new exposures to COVID-19. ??? If you had COVID-19 in the previous 90 days and then came into close contact with someone with COVID-19, you do not have to quarantine or get tested if you do not have symptoms. But you should: ? Wear a well-fitting mask indoors in public for 10 days after your last close contact. ? Monitor for COVID-19 symptoms for 10 days from the date of your last close contact. ? Isolate immediately and get tested if symptoms develop. ??? If more than 90 days have passed since your recovery from infection, follow CDC's recommendations for close contacts. These recommendations will differ depending on your vaccination status. 02/03/2022 Content source: National Center for Immunization and Respiratory Diseases (NCIRD), Division of Viral Diseases This information is not intended to replace advice given to you by your health care provider. Make sure you discuss any questions you have with your health care provider. Document Revised: 03/11/2022 Document Reviewed: 03/11/2022 [employer] Patient Education ?? 2021 [employer]. COVID-19: What to Do if You Are Sick If you test positive and are an older adult or someone who is at high risk of getting very sick from COVID-19, treatment may be available. Contact a healthcare provider right away after a positive test to determine if you are eligible, even if your symptoms are mild right now. You can also visit a [facility] location and, if eligible, receive a prescription from a provider. Don't delay: Treatment must be started within the first few days to be effective. If you have a fever, cough, or other symptoms, you might have COVID-19. Most people have mild illness and are able to recover at home. If you are sick: ??? Keep track of your symptoms. ??? If you have an emergency warning sign (including trouble breathing), call 911. Steps to help prevent the spread of COVID-19 if you are sick If you are sick with COVID-19 or think you might have COVID-19, follow the steps below to care for yourself and to help protect other people in your home and community. Stay home except to get medical care ??? Stay home. Most people with COVID-19 have mild illness and can recover at home without medical care. Do not leave your home, except to get medical care. Do not visit public areas and do not go to places where you are unable to wear a mask. ??? Take care of yourself. Get rest and stay hydrated. Take ilvv-[id number] medicines, such as acetaminophen, to help you feel better. ??? Stay in touch with your doctor. Call before you get medical care. Be sure to get care if you have trouble breathing, or have any other emergency warning signs, or if you think it is an emergency. ??? Avoid public transportation, ride-sharing, or taxis if possible. Get tested ??? If you have symptoms of COVID-19, get tested. While waiting for test results, stay away from others, including staying apart from those living in your household. ??? Get tested as soon as possible after your symptoms start. Treatments may be available for people with COVID-19 who are at risk for becoming very sick. Don't delay: Treatment must be started early to be effective???some treatments must begin within 5 days of your first symptoms. Contact your healthcare provider right away if your test result is positive to determine if you are eligible. ??? Self-tests are one of several options for testing for the virus that causes COVID-19 and may be more convenient than laboratory-based tests and idbsf-vg-[id number] tests. Ask your healthcare provider or your local health department if you need help interpreting your test results. ??? You can visit your state, [place], local, and territorial health department's website to look for the latest local information on testing sites. Separate yourself from other people As much as possible, stay in a specific room and away from other people and pets in your home. If possible, you should use a separate bathroom. If you need to be around other people or animals in or outside of the home, wear a well-fitting mask. Tell your close contacts that they may have been exposed to COVID-19. An infected person can spread COVID-19 starting 48 hours (or 2 days) before the person has any symptoms or tests positive. By letting your close contacts know they may have been exposed to COVID-19, you are helping to protect everyone. ??? See COVID-19 and Animals if you have questions about pets. ??? If you are diagnosed with COVID-19, someone from the health department may call you. Answer the call to slow the spread. Monitor your symptoms ??? Symptoms of COVID-19 include fever, cough, or other symptoms. ??? Follow care instructions from your healthcare provider and local health department. Your local health authorities may give instructions on checking your symptoms and reporting information. When to seek emergency medical attention Look for emergency warning signs* for COVID-19. If someone is showing any of these signs, seek emergency medical care immediately: ??? Trouble breathing ??? Persistent pain or pressure in the chest ??? New confusion ??? Inability to wake or stay awake ??? Pale, huggins, or blue-colored skin, lips, or nail beds, depending on skin tone *This list is not all possible symptoms. Please call your medical provider for any other symptoms that are severe or concerning to you. Call 911 or call ahead to your local emergency facility: Notify the clarifier operator helper that you are seeking care for someone who has or may have COVID-19. Call ahead before visiting your doctor ??? Call ahead. Many medical visits for routine care are being postponed or done by phone or telemedicine. ??? If you have a medical appointment that cannot be postponed, call your doctor's office, and tell them you have or may have COVID-19. This will help the office protect themselves and other patients. If you are sick, wear a well-fitting mask ??? You should wear a mask if you must be around other people or animals, including pets (even at home). ??? Wear a mask with the best fit, protection, and comfort for you. ??? You don't need to wear the mask if you are alone. If you can't put on a mask (because of trouble breathing, for example), cover your coughs and sneezes in some other way. Try to stay at least 6 feet away from other people. This will help protect the people around you. ??? Masks should not be placed on young children under age 2 years, anyone who has trouble breathing, or anyone who is not able to remove the mask without help. Cover your coughs and sneezes ??? Cover your mouth and nose with a tissue when you cough or sneeze. ??? Throw away used tissues in a lined trash can. ??? Immediately wash your hands with soap and water for at least 20 seconds. If soap and water are not available, clean your hands with an alcohol-based hand afloat cryptologic manager that contains at least 60% alcohol. Clean your hands often ??? Wash your hands often with soap and water for at least 20 seconds. This is especially important after blowing your nose, coughing, or sneezing; going to the bathroom; and before eating or preparing food. ??? Use hand afloat cryptologic manager if soap and water are not available. Use an alcohol-based hand afloat cryptologic manager with at least 60% alcohol, covering all surfaces of your hands and rubbing them together until they feel dry. ??? Soap and water are the best option, especially if hands are visibly dirty. ??? Avoid touching your eyes, nose, and mouth with unwashed hands. ??? Handwashing Tips Avoid sharing personal household items ??? Do not share dishes, drinking glasses, cups, eating utensils, towels, or bedding with other people in your home. ??? Wash these items thoroughly after using them with soap and water or put in the certified tower climber. Clean surfaces in your home regularly ??? Clean and disinfect high-touch surfaces (for example, doorknobs, tables, handles, light switches, and countertops) in your sick room and bathroom. In shared spaces, you should clean and disinfect surfaces and items after each use by the person who is ill. ??? If you are sick and cannot clean, a caregiver or other person should only clean and disinfect the area around you (such as your bedroom and bathroom) on an as needed basis. Your caregiver/other person should wait as long as possible (at least several hours) and wear a mask before entering, cleaning, and disinfecting shared spaces that you use. ??? Clean and disinfect areas that may have blood, stool, or body fluids on them. ??? Use household technical services rep and disinfectants. Clean visible dirty surfaces with household technical services rep containing soap or detergent. Then, use a household disinfectant. ? Use a product from EPA's List N: Disinfectants for Coronavirus (COVID-19). ? Be sure to follow the instructions on the label to ensure safe and effective use of the product. Many products recommend keeping the surface wet with a disinfectant for a certain period of time (look at contact time on the product label). ? You may also need to wear personal protective equipment, such as gloves, depending on the directions on the product label. ? Immediately after disinfecting, wash your hands with soap and water for 20 seconds. ? For completed guidance on cleaning and disinfecting your home, visit Complete Disinfection Guidance. Take steps to improve ventilation at home ??? Improve ventilation (air flow) at home to help prevent from spreading COVID-19 to other people in your household. ??? Clear out COVID-19 virus particles in the air by opening windows, using air filters, and turning on fans in your home. ??? Use this interactive tool to learn how to improve air flow in your home. When you can be around others after being sick with COVID-19 Deciding when you can be around others is different for different situations. Find out when you can safely end home isolation. For any additional questions about your care, contact your healthcare provider or [facility] or [facility] health department. 01/26/2022 Content source: National Center for Immunization and Respiratory Diseases (NCIRD), Division of Viral Diseases This information is not intended to replace advice given to you by your health care provider. Make sure you discuss any questions you have with your health care provider. Document Revised: 03/11/2022 Document Reviewed: 03/11/2022 [employer] Patient Education ?? 2021 [employer] 10 Things You Can Do to Manage Your COVID-19 Symptoms at Home If you have possible or confirmed COVID-19 1. Stay home except to get medical care. 2. Monitor your symptoms carefully. If your symptoms get worse, call your healthcare provider immediately. 3. Get rest and stay hydrated. 4. If you have a medical appointment, call the healthcare provider ahead of time and tell them that you have or may have COVID-19. 5. For medical emergencies, call 911 and notify the dispatch personnel that you have or may have COVID-19. 6. Cover your cough and sneezes with a tissue or use the inside of your elbow. 7. Wash your hands often with soap and water for at least 20 seconds or clean your hands with an alcohol-based hand afloat cryptologic manager that contains at least 60% alcohol. 8. As much as possible, stay in a specific room and away from other people in your home. Also, you should use a separate bathroom, if available. If you need to be around other people in or outside of the home, wear a mask. 9. Avoid sharing personal items with other people in your household, like dishes, towels, and bedding. 10. Clean all surfaces that are touched often, like counters, tabletops, and doorknobs. Use household cleaning sprays or wipes according to the label instructions. cdc.gov/coronavirus 05/22/2021 This information is not intended to replace advice given to you by your health care provider. Make sure you discuss any questions you have with your health care provider. Document Revised: 03/11/2022 Document Reviewed: 03/11/2022 [employer] Patient Education ?? 2021 [employer]. Emergency Awareness and Preventative Care STROKE is an EMERGENCY Every Minute Counts Act FAST and Check for these signs: FACE Does the face look uneven? ARM Does one arm drift down? SPEECH Does their speech sound strange? TIME Call at any sign of stroke Stroke Risk Factors Atrial Fibrillation (irregular heartbeat) Diabetes Family history of stroke Heart Disease Heavy alcohol use High Blood Pressure High Cholesterol Physical inactivity and obesity Smoking Cigarette Smoking The facts are clear, cigarette smoking will shorten your life. Smoking can cause many illnesses along the way. As a healthcare provider, we recommend that you stop smoking. Assistance with quitting is available by contacting 4-029-SXPL-NOW. This is a free resource providing counseling, support, and referral. Or you may contact your personal physician. National Suicide Prevention Lifeline: The National Suicide Prevention Lifeline is a national network of local crisis centers that provides free and confidential emotional support to people in suicidal crisis or emotional distress 24 hours a day, 7 days a week. Don't Wait! Stop a Heart Attack Before it Starts What is a heart attack? A heart attack is damage or to a part of the heart from severely decreased or lack of blood flow to the heart. Over time, arteries can become narrow from the buildup of fat and cholesterol, which is called plaque. The plaque can rupture causing a blood clot to form. When the blood clot forms, the artery can become severely narrowed or completely blocked, causing a heart attack. Heart attack is the leading cause of in the [place]. 85% of muscle damage occurs within the first 2 hours. Delay in the recognition of heart attack symptoms increases the chances of . Know the early symptoms of a heart attack: Nausea Feeling of fullness in chest Jaw Pain Pain that travels down one or both arms Fatigue/being tired Anxiety Back Pain Chest pressure, squeezing, or discomfort Shortness of breath Sweating, or a cold sweat Feeling of impending doom There are unusual signs of a heart attack, too! Women, the elderly, and diabetics may present with atypical symptoms: Fainting/dizziness Weakness Confusion Risk Factors for a Heart Attack Some heart disease risk factors, such as age and family history, cannot be changed. Others, like smoking and lack of exercise, can be changed. Smoking High Cholesterol High Blood Pressure Family History Obesity Age Gender (Males are at higher risk) Lack of Exercise Diabetes Diet Stress Excessive Alcohol Intake If you or someone you know is experiencing the signs and symptoms of a heart attack, DON???T DELAY. Call immediately and seek help. If someone collapses, perform CPR! Do not attempt to drive if you are having symptoms of heart attack. Hands-Only CPR Why Hands-Only CPR? Hands-Only CPR has been shown to be as effective as conventional CPR for cardiac arrests that occur outside of a hospital. Survival depends on immediately receiving CPR from someone nearby. How do you perform Hands-Only CPR? There are two easy steps: Call if you see a teen or adult collapse Push hard and fast in the center of the chest at a beat of 100 beats per minute. Save a life! 4 WAYS TO GET AHEAD OF SEPSIS SEPSIS is a MEDICAL EMERGENCY. Time matters! Infections put you and your family at risk for a life-threatening condition called sepsis. Sepsis is the body's extreme response to an infection. It is life-threatening, and without timely treatment, sepsis can rapidly lead to tissue damage, organ failure, and . Sepsis happens when an infection you already have-in your skin, lungs, urinary tract or somewhere else-triggers a chain reaction throughout your body. 1 PREVENT INFECTIONS Take good care of chronic conditions. Talk to your doctor about getting the recommended vaccines. 2 PRACTICE GOOD HYGIENE Wash your hands frequently. Keep cuts or open sores clean and covered until they are healed. 3 KNOW THE SYMPTOMS Confusion or disorientation Shortness of breath High heart rate Fever, shivering, or feeling very cold Extreme pain or discomfort Clammy or sweaty skin 4 ACT FAST Get medical care IMMEDIATELY if you suspect sepsis or if you have an infection that is not getting better or is getting worse. To learn more about sepsis and how to prevent infections, visit www.cdc.gov/sepsis. The examination and treatment you have received in the Emergency Department has been done to provide an appropriate evaluation and stabilizing treatment on an emergency basis only. Given the limited resources, it is not meant to be a substitute for complete medical care. The follow-up doctor you named will receive a copy of your records and all test reports. IT IS IMPORTANT THAT YOU SCHEDULE A FOLLOW-UP APPOINTMENT AND ARE RE-EVALUATED. You should report any new complaints, symptoms, or remaining problems at that time. IT IS IMPOSSIBLE FOR THE EMERGENCY DEPARTMENT TO RECOGNIZE AND TREAT ALL ELEMENTS OF INJURY OR ILLNESS IN A SINGLE VISIT. If you have been referred to a specialist physician, it means that we believe you may have a condition that requires the expertise of a specialist. These physicians work in partnership with the hospital and have agreed to see referred patients in their office for further evaluation. KEEP IN MIND THAT THE SPECIALIST HAS HIS/HER OWN OFFICE POLICIES WHICH MAY REQUIRE PROPER INSURANCE OR PAYMENT UP FRONT BEFORE THE SPECIALIST WILL SEE YOU. It is your responsibility to call the specialist physician to make an appointment. We do not have the ability to refer patients to specialists/physicians that work with specific insurance companies. Please be advised that all financial charges or billing practices are determined by that practice, not the hospital. If your insurance company requires that you see a specialist from their approved list, it is your responsibility to contact your insurance company to make those arrangements. It is also your responsibility to follow any other requirements of your insurance company necessary to obtain coverage for claims submitted. We will bill your insurance; however, you are responsible today for any co-pay amounts. You will receive a separate bill for any services you may have received including: emergency, radiology, or pathology physicians. Patient Name:SHERON CARVAJAL I have received this information and was given the opportunity to ask questions. Patient/Table Tender Name: Patient/Table Tender Signature: Relationship to Patient: Clinician/Hospital Table Tender Signature: Please Provide a Telephone Number Where You Can Be Reached: Is it Permissible To Leave a Message? Date: documented in this encounter Plan of Treatment Upcoming Encounters Date Type Department Care Team (Late st Contact Info) Description 01/15/2025 2:45 PM EDT Office Visit [facility] - [address] [place] [phone] Jayla Ontiveros MD [address] [place] [address] 09/19/2025 2:30 PM EST Appointment [facility] [address] [facility] [address] [place] [address] documented as of this encounter Visit Diagnoses Not on filedocumented in this encounter Care Teams Banquet Director Relationship Specialty Start Date End Date Radha MéndezCODY PCP - General Primary Care 09/07/22 01/03/24 Suzanne Mora, CODY [address] [place] [address] PCP - General Family Medicine 01/04/24 Steven Marcelo MD [address] [facility] [address] [place] [address] Surgeon General Surgery 09/07/22 Jayla Ontiveros MD [address] [facility] [address] [place] [address] Medical Oncologist Hematology and Oncology 09/07/22 Rory, Modesta Walsh RN Nurse Navigator 03/03/23 03/20/24 documented as of this encounter
--- OUTSIDE RECORDS SUMMARY | 2024-10-05 17:17 | XMS_ITS | Encounter Summary ---
Author Organization [employer] Address [address] [place] [address] Care Team Providers Care Lens Cementer Name Role Phone Komal Méndez Nick ROSS Primary Care Provider [phone] Steven Marcelo MD Unavailable [phone] Jayla Ontiveros MD Unavailable [phone] Encounter Details Date Type Department Care Team (Late st Contact Info) Description 06/24/2020 Historic Encounter [facility] [place] [address] Romaine Rivas MD [address] [place] [address] [address] [place], [place] [id number] Social History Tobacco Use Types Packs/Day Years [...] Description 01/15/2025 2:45 PM EDT Office Visit [facility] - [address] [place] [phone] Jayla Ontiveros MD [address] [place] [address] 09/19/2025 2:30 PM EST Appointment [facility] [address] [facility] [address] [place] [address] documented as of this encounter Procedures Procedure Name Priority Date/Time Associated Diagnosis Comments US BREAST LEFT LIMITED Routine 06/24/2020 3:50 PM EDT documented in this encounter Results * US BREAST LEFT LIMITED (06/24/2020 3:50 PM EDT) Anatomical Region Laterality Modality Breast Left Ultrasound 06/24/2020 3:50 PM EDT Narrative 08/18/2020 12:21 PM EDT PROCEDURE: Left digital diagnostic mammogram with tomosynthesis and limited left breast sonography. REASON FOR EXAM: 3 mm nodule identified within lower inner quadrant of the left breast on recent screening mammogram FAMILY HISTORY: ??No family history of breast cancer. COMPARISON STUDY: [facility] 2015- FINDINGS: Spot Craniocaudal and spot mediolateral oblique images of the left breast were obtained in C-view and 3D modes. There are scattered areas of fibroglandular density. A fairly well-circumscribed round-ovoid equal density mass is again identified within the posterior lower inner quadrant of the left breast on the additional images obtained today. Thorough sonographic examination throughout this quadrant revealed no definitive sonographic correlate to the mammographic finding. A tiny 3 mm cyst within a band of normal dense echogenic breast tissue was appreciated further anteriorly at the 7:00 position of the right breast. Due to the low overall suspicion of the tiny nodular asymmetry within the lower inner quadrant of the left breast, 6 month interval mammographic follow-up was recommended to the patient. The patient is currently on Eliquis for atrial fibrillation and has an indwelling pacemaker. The patient is amenable with this follow-up imaging strategy. This examination was reviewed with the benefit of computer-aided detection (CAD). FINAL IMPRESSION: ACR BI-RADS 3: Probably benign finding. RECOMMENDATIONS: Left digital diagnostic mammogram in 6 months. This report will serve as the order for the recommended imaging studies as described above. A letter including results and recommendations was sent to the patient. Density notification was provided to patients with type 3 or 4 breast tissue pattern. Patient information entered into a reminder system with a target due date for the next mammogram. At our facility, a manzanita marker is positioned over a visible skin lesion and a linear marker is used to indicate a scar. A triangular marker is placed on a self reported palpable finding. cc: Procedure Note Romaine Rivas MD - 02/22/2023 PROCEDURE: Left digital diagnostic mammogram with tomosynthesis and limited left breast sonography. REASON FOR EXAM: 3 mm nodule identified within lower inner quadrant of the left breast on recent screening mammogram FAMILY HISTORY: No family history of breast cancer. COMPARISON STUDY: [facility] FINDINGS: Spot Craniocaudal and spot mediolateral oblique images of the left breast were obtained in C-view and 3D modes. There are scattered areas of fibroglandular density. A fairly well-circumscribed round-ovoid equal density mass is again identified within the posterior lower inner quadrant of the left breast on the additional images obtained today. Thorough sonographic examination throughout this quadrant revealed no definitive sonographic correlate to the mammographic finding. A tiny 3 mm cyst within a band of normal dense echogenic breast tissue was appreciated further anteriorly at the 7:00 position of the right breast. Due to the low overall suspicion of the tiny nodular asymmetry within the lower inner quadrant of the left breast, 6 month interval mammographic follow-up was recommended to the patient. The patient is currently on Eliquis for atrial fibrillation and has an indwelling pacemaker. The patient is amenable with this follow-up imaging strategy. This examination was reviewed with the benefit of computer-aided detection (CAD). FINAL IMPRESSION: ACR BI-RADS 3: Probably benign finding. RECOMMENDATIONS: Left digital diagnostic mammogram in 6 months. This report will serve as the order for the recommended imaging studies as described above. A letter including results and recommendations was sent to the patient. Density notification was provided to patients with type 3 or 4 breast tissue pattern. Patient information entered into a reminder system with a target due date for the next mammogram. At our facility, a manzanita marker is positioned over a visible skin lesion and a linear marker is used to indicate a scar. A triangular marker is placed on a self reported palpable finding. cc: us Romaine Rivas MD [facility] ORDERABLES Final Result documented in this encounter Visit Diagnoses Not on filedocumented in this encounter Care Teams Lens Cementer Relationship Specialty Start Date End Date Komal Méndez, MUD ENGINEER PCP - General Primary Care 09/07/22 01/03/24 Steven Marcelo MD [address] [facility] [address] [place] [address] Surgeon General Surgery 09/07/22 Jayla Ontiveros MD [address] [facility] [address] [place] [address] Medical Oncologist Hematology and Oncology 09/07/22 documented as of this encounter
--- OUTSIDE RECORDS SUMMARY | 2024-10-05 17:17 | XMS_ITS | Encounter Summary ---
Author Organization [employer] Address [address] [place] [address] Care Team Providers Care Mobile Web Application Developer Name Role Phone Irene Méndezh Nick ROSS Primary Care Provider + [phone] Steven Marcelo MD Unavailable [phone] Jayla Ontiveros MD Unavailable [phone] Modesta Valadez RN Unavailable Unavailable Suzanne Mora APRN Primary Care Provider [phone] Encounter Details Date Type Department Care Team (Late st Contact Info) Description 04/29/2022 Transcribed Document [facility] Family Medicine [facility] [address] ProviderNimisha MD [address] [place] [address] Social History Tobacco Use Types Packs/Day Years Used Date Smoking Tobacco: Never Assessed Comments Unknown Sex and Gender Information Value Date Recorded Sex Assigned at Not on file Legal Sex Female 4:30 PM CDT Gender Identity Not on file Sexual Orientation Not on file documented as of this encounter Miscellaneous Notes * Cerner Conversion Note - Historical ProviderMD - 04/29/2022 10:02 PM CDT [address] [address] Visit Date/Time: 04/29/2022 22:02:18 SHERON CARVAJAL The above patient was seen in the hospital today and needs to be excused from work/school until Return to Work/School Date: 05/03/2022 documented in this encounter Plan of Treatment Upcoming Encounters Date Type Department Care Team (Late st Contact Info) Description 01/15/2025 2:45 PM EDT Office Visit [facility] - [address] [place] [phone] Jayla Ontiveros MD [address] [place] [address] 09/19/2025 2:30 PM EST Appointment [facility] Breast [facility] [address] [facility] [address] [place] [address] documented as of this encounter Visit Diagnoses Not on filedocumented in this encounter Care Teams Mobile Web Application Developer Relationship Specialty Start Date End Date Komal Méndez APRN PCP - General Primary Care 09/07/22 01/03/24 Suzanne Mora APRN [address] [place] [address] PCP - General Family Medicine 01/04/24 Steven Marcelo MD [address] [place] [address] Surgeon General Surgery 09/07/22 Jayla Ontiveros MD [address] [facility] [address] [place] [address] Medical Oncologist Hematology and Oncology 09/07/22 Rory, Modesta Walsh, RN Nurse Navigator 03/03/23 03/20/24 documented as of this encounter
--- OUTSIDE RECORDS SUMMARY | 2024-10-05 17:17 | XMS_ITS | Encounter Summary ---
Author Organization [employer] Address [address] [place] [address] Care Team Providers Care Biostatistics Professor Name Role Phone Radha Swan APRN Primary Care Provider + [phone] Steven Marcelo MD Unavailable [phone] Jayla Ontiveros MD Unavailable [phone] Modesta Valadez RN Unavailable Unavailable Suzanne Mora APRN Primary Care Provider [phone] Encounter Details Date Type Department Care Team (Late st Contact Info) Description 04/29/[address] [facility] Family Medicine [facility] [place] [address] ProviderNimisha MD [address] [place] [address] Social History Tobacco Use Types Packs/Day Years Used Date Smoking Tobacco: Never Assessed Comments Unknown Sex and Gender Information Value Date Recorded Sex Assigned at Not on file Legal Sex Female 4:30 PM CDT Gender Identity Not on file Sexual Orientation Not on file documented as of this encounter Miscellaneous Notes * Cerner Conversion Note - Historical ProviderMD - 04/29/2022 8:10 PM CDT Patient: SHERON CARVAJAL Age: 71 years Sex: Female : 1950 Associated Diagnoses: Shoulder injury; Knee injury; Fall at home Author: KIM REAGAN APRN Basic Information Additional information: Chief Complaint from Nursing Triage Note : Chief Complaint 04/29/2022 19:32 EDT Chief Complaint patient staes she fell over babygate. patient is nausead . complaining of pain in left shoulder and right knee . History of Present Illness The patient presents following fall. The onset was 2 hours ago. The occurrence was single episode. The fall was described as tripped. The location where the incident occurred was at home. Location: Left anterior shoulder. The character of symptoms is pain and swelling. The degree at present is moderate. The exacerbating factor is changing position. The relieving factor is rest. Risk factors consist of age. The patient's dominant hand is unknown. Therapy today: none. Preceding symptoms none. Associated symptoms: nausea. 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 Patient states sustained a fall at home. She states tripped over the baby gate. She denies head injury, loss of consciousness, preceding dizziness or chest pain. She denies shortness of breath. States fell onto her left side, concerned with pacemaker functioning properly. Review of Systems Constitutional symptoms: No fever, no chills, no decreased activity. Skin symptoms: No rash, Eye symptoms: Vision unchanged. ENMT symptoms: No sore throat, Respiratory symptoms: No shortness of breath, no cough. Cardiovascular symptoms: No chest pain, no syncope. Gastrointestinal symptoms: No abdominal pain, no vomiting, no diarrhea. Genitourinary symptoms: No dysuria, Musculoskeletal symptoms: Muscle pain, Joint pain, No back pain, Neurologic symptoms: No headache, no dizziness, no altered level of consciousness. Psychiatric symptoms: No anxiety, Endocrine symptoms: No polyuria, Hematologic/Lymphatic symptoms: Bleeding tendency negative, Allergy/immunologic symptoms: No recurrent infections, Health Status Allergies: Allergic Reactions (Selected) No Known Medication Allergies. Medications: (Selected) Inpatient Medications Ordered [place] 5 mg-325 mg oral tablet: 1 Tab, Oral, 1-Time ondansetron 4 mg oral tablet, disintegratin mg, 1 Tab, Oral, 1-Time Documented Medications Documented Eliquis: 5 mg, Oral, [...] documented in chart. Problem list: Active Problems (4) At risk for sleep apnea Atrial fibrillation High blood pressure Kidney disease . Physical Examination Vital Signs Vital Signs/Vital Measures 04/29/2022 19:32 EDT Blood Pressure Location Arm, left upper Blood Pressure Source Non-Invasive BP Device Systolic Blood Pressure 152 mmHg HI Diastolic Blood Pressure 69 mmHg Temperature Source Oral Temperature Mode Fahrenheit Temperature, Fahrenheit 98.2 Deg F Clinical Temperature, C 36.8 Deg C Peripheral Pulse Rate 61 bpm Respiratory Rate 18 Breaths/Min Oxygen Saturation 99 % Oxygen Therapy Mode Room air . Measurements 04/29/2022 19:32 EDT Height Source Stated Height Entry Format [place] Height/Length, FILIPINO (ft) 5 ft Height/Length FILIPINO 7 Inch CLINICALHEIGHT 170.18 cm [place] Body Weight 61.16 kg Weight Source, ED Standing scale Weight Entry Format Novi Weight [place] Islander lb 140.5 lb CLINICALWEIGHT 63.86 kg Body Surface Area (BSA) 1.74 m2 Body Mass Index 22.1 kg/m2 . Oxygen Saturation 04/29/2022 19:32 EDT Oxygen Saturation 99 % . General: Alert, no acute distress. Skin: Warm. Head: Normocephalic. Neck: Supple. Eye: Sclera: not icteric. Ears, nose, mouth and throat: Oral mucosa moist. Cardiovascular: Regular rate and rhythm, No murmur, Normal peripheral perfusion, No edema. Respiratory: Lungs are clear to auscultation, respirations are non-labored, breath sounds are equal. Chest wall: No tenderness. Back: Nontender. Musculoskeletal: Proximal upper extremity: Left, anterior, shoulder, tenderness, range of motion (limited, active, restricted by pain). Gastrointestinal: Soft, Nontender, Non distended, Normal bowel sounds. Neurological: Alert and oriented to person, place, time, and situation, No focal neurological deficit observed, normal sensory observed, normal motor observed, normal speech observed, normal coordination observed. Lymphatics: No lymphadenopathy. Psychiatric: Cooperative. Medical Decision Making Differential Diagnosis: Fall, abrasion, contusion, sprain, strain, closed fracture. Radiology results: Emergency physician interpretation: No obvious acute fracture, degenerative changes, No Radiology Results Found. Notes: Pacemaker interrogated, discussed with [employer] player services representative Ivan Olsen-pacemaker working well, no damage to the unit. Reexamination/ Reevaluation Time: 04/29/2022 22:23:00 . Vital signs per nurse's notes Notes: Discussed with patient diagnostic test results, differential diagnosis of the symptoms, treatment plan treatment plan, in detail adviseds, advised follow-up with primary care physician for further evaluation and management, also give patient specific instruction to return to the emergency department, if symptoms worsens. Impression and Plan Diagnosis Shoulder injury - Discharge, Medical Knee injury - Discharge, Medical Fall at home - Discharge, Medical Plan Condition: Stable. Disposition: Discharged Admit/Transfer/Discharge: Discharge (Order): Start: 04/29/2022 22:23 EDT, Discharge to: Home. Patient was given the following educational materials: Fall Prevention in the Home, Adult, Hypertension, Adult, Shoulder Sprain, Knee Sprain, Adult. Follow up with: RADHA SWAN Within 2 to 3 days; MOSIE DUEÑAS Within 2 to 3 days Call for follow up appointment with orthopedist for further evaluation and management of your injury, rest, ice, elevate your right knee and left shoulder, return to ER for worsening of the symptoms: Increasing pain, shortness of breath, fever; DEVANTE SOLOMON Within 2 to 3 days Call for follow up appointment with your extender. Counseled: Patient, Family, Regarding diagnosis, Regarding diagnostic results, Regarding treatment plan. documented in this encounter Plan of Treatment Upcoming Encounters Date Type Department Care Team (Late st Contact Info) Description 01/15/2025 2:45 PM EDT Office Visit [facility] - [address] [place] [phone] Jayla Ontiveros MD [address] [place] [address] 09/19/2025 2:30 PM EST Appointment [facility] Breast Care [address] [place] [address] documented as of this encounter Visit Diagnoses Not on filedocumented in this encounter Care Teams Biostatistics Professor Relationship Specialty Start Date End Date Radha Swan APRN PCP - General Primary Care 09/07/22 01/03/24 Suzanne Mora, SENIOR SAS PROGRAMMER [address] [place] [phone] PCP - General Family Medicine 01/04/24 Steven Marcelo MD [address] [place] [phone] Surgeon General Surgery 09/07/22 Jayla Ontiveros MD [address] [place] [address] Medical Oncologist Hematology and Oncology 09/07/22 Rory, Modesta Walsh, RN Nurse Navigator 03/03/23 03/20/24 documented as of this encounter
--- OUTSIDE RECORDS SUMMARY | 2024-10-05 17:17 | XMS_ITS | Encounter Summary ---
Author Organization [employer] Address [address] [place] [address] Care Team Providers Care Band Saw Operator Name Role Phone Komal Méndez APRN Primary Care Provider + [phone] Steven Marcelo MD Unavailable [phone] Jayla Ontiveros MD Unavailable [phone] Modesta Valadez RN Unavailable Unavailable Suzanne Mora APRN Primary Care Provider [phone] Encounter Details Date Type Department Care Team (Late st Contact Info) Description 08/19/2020 Transcribed Document [facility] [place] [facility] [address] [place] [address] ProviderNimisha MD [address] [place] [address] Social History Tobacco Use Types Packs/Day Years Used Date Smoking Tobacco: Never Assessed Comments Unknown Sex and Gender Information Value Date Recorded Sex Assigned at Not on file Legal Sex Female 4:30 PM CDT Gender Identity Not on file Sexual Orientation Not on file documented as of this encounter Miscellaneous Notes * Cerner Conversion Note - Historical ProviderMD - 08/19/2020 10:03 AM CDT [facility] [place] [address] SHERON CARVAJAL :1950 Visit Time:08/19/2020 What to do next Instructions From Your Care Team Diet after Discharge: Resume usual diet as tolerated, Do not drink any alcoholic beverages Activity after Discharge: Rest and relax today, No strenuous activity Driving after Discharge: Do not drive for 24 hours May Return to Work/School: Tomorrow Notify Provider of: Questions or concerns No signing legal documents for 24 hours. Follow-Up Appointments Follow Up with BLAKE JACOBSON When Only if needed Where: [address] [place] [address]- Business (1) Medications What How Much When Instructions Next Dose amLODIPine 5 Milligram(s) Oral Every Day apixaban (Eliquis) 5 Milligram(s) Oral Two Times A Day ferrous sulfate 325 Milligram(s) Oral Every Day lisinopril (lisinopril 10 mg oral tablet) 4 Tablet(s) Oral Every Day metoprolol (Metoprolol Tartrate 25 mg oral tablet) Oral Two Times A Day Non Formulary (Non Formulary Medication) Oral Every Day 1000 unit, vitamin D Take your medications faithfully. Do NOT skip [...] of unused and medications per pharmacy guidance. Education Materials Hemorrhoids Hemorrhoids are swollen veins that may develop: ??? In the butt (rectum). These are called internal hemorrhoids. ??? Around the opening of the butt (anus). These are called external hemorrhoids. Hemorrhoids can cause pain, itching, or bleeding. Most of the time, they do not cause serious problems. They usually get better with diet changes, lifestyle changes, and other home treatments. What are the causes? This condition may be caused by: ??? Having trouble pooping (constipation). ??? Pushing hard (straining) to poop. ??? Watery poop (diarrhea). ??? . ??? Being very overweight (obese). ??? Sitting for long periods of time. ??? Heavy lifting or other activity that causes you to strain. ??? Anal sex. ??? Riding a bike for a long period of time. What are the signs or symptoms? Symptoms of this condition include: ??? Pain. ??? Itching or soreness in the butt. ??? Bleeding from the butt. ??? Leaking poop. ??? Swelling in the area. ??? One or more lumps around the opening of your butt. How is this diagnosed? A doctor can often diagnose this condition by looking at the affected area. The doctor may also: ??? Do an exam that involves feeling the area with a gloved hand (digital rectal exam). ??? Examine the area inside your butt using a small tube (anoscope). ??? Order blood tests. This may be done if you have lost a lot of blood. ??? Have you get a test that involves looking inside the colon using a flexible tube with a camera on the end (sigmoidoscopy or colonoscopy). How is this treated? This condition can usually be treated at home. Your doctor may tell you to change what you eat, make lifestyle changes, or try home treatments. If these do not help, procedures can be done to remove the hemorrhoids or make them smaller. These may involve: ??? Placing rubber bands at the base of the hemorrhoids to cut off their blood supply. ??? Injecting medicine into the hemorrhoids to shrink them. ??? Shining a type of light energy onto the hemorrhoids to cause them to fall off. ??? Doing surgery to remove the hemorrhoids or cut off their blood supply. Follow these instructions at home: Eating and drinking ??? Eat foods that have a lot of fiber in them. These include whole grains, beans, nuts, fruits, and vegetables. ??? Ask your doctor about taking products that have added fiber (fibersupplements). ??? Reduce the amount of fat in your diet. You can do this by: ? Eating low-fat dairy products. ? Eating less red meat. ? Avoiding processed foods. ??? Drink enough fluid to keep your pee (urine) pale yellow. Managing pain and swelling ??? Take a warm-water bath (sitz bath) for 20 minutes to ease pain. Do this 3???4 times a day. You may do this in a bathtub or using a portable sitz bath that fits over the toilet. ??? If told, put ice on the painful area. It may be helpful to use ice between your warm baths. ? Put ice in a plastic bag. ? Place a towel between your skin and the bag. ? Leave the ice on for 20 minutes, 2???3 times a day. General instructions ??? Take bole-kkg-mivxqeg and prescription medicines only as told by your doctor. ? Medicated creams and medicines may be used as told. ??? Exercise often. Ask your doctor how much and what kind of exercise is best for you. ??? Go to the bathroom when you have the urge to poop. Do not wait. ??? Avoid pushing too hard when you poop. ??? Keep your butt dry and clean. Use wet toilet paper or moist towelettes after pooping. ??? Do not sit on the toilet for a long time. ??? Keep all follow-up visits as told by your doctor. This is important. Contact a doctor if you: ??? Have pain and swelling that do not get better with treatment or medicine. ??? Have trouble pooping. ??? Cannot poop. ??? Have pain or swelling outside the area of the hemorrhoids. Get help right away if you have: ??? Bleeding that will not stop. Summary ??? Hemorrhoids are swollen veins in the butt or around the opening of the butt. ??? They can cause pain, itching, or bleeding. ??? Eat foods that have a lot of fiber in them. These include whole grains, beans, nuts, fruits, and vegetables. ??? Take a warm-water bath (sitz bath) for 20 minutes to ease pain. Do this 3???4 times a day. This information is not intended to replace advice given to you by your health care provider. Make sure you discuss any questions you have with your health care provider. Document Released: 08/02/2009 Document Revised: 11/01/2019 Document Reviewed: 03/15/2019 [employer] Patient Education ?? 2020 [employer]. COLONOSCOPY CARE AFTER Read the instructions outlined below and refer to this sheet over the next few days. These discharge instructions provide you with general information on caring for yourself after you leave the hospital. Your doctor may also give you specific instructions. While your treatment has been planned according to the most current medical practices available, unavoidable complications occasionally occur. If you have any problems or questions after discharge, call your doctor. HOME CARE INSTRUCTIONS ACTIVITY: ??? You may resume your regular activity tomorrow, but move at a slower pace for the next 24 hours. ??? Take frequent rest periods for the next 24 hours. ??? Walking will help get rid of the air and reduce the bloated feeling in your belly (abdomen). ??? No driving for 24 hours because of the medication (sedation) used during the test. ??? You may shower. ??? Do not sign any important legal documents or operate any machinery for 24 hours (because of the sedation used during the test). NUTRITION: ??? Drink plenty of fluids. ??? You may resume your normal diet or as instructed by your doctor. ??? Begin with a light meal and progress to your normal diet. Heavy or fried foods are harder to digest and may make you feel sick to your stomach (nauseated). ??? Avoid alcoholic beverages for 24 hours or as instructed. MEDICATIONS: ??? You may resume your normal medications unless your doctor tells you otherwise. WHAT TO EXPECT TODAY: ??? Some feelings of bloating in the abdomen. ??? Passage of more gas than usual. ??? Spotting of blood in your stool or on the toilet paper. ??? No bowel movements for 1-3 days due to colon prep. IF YOU HAD POLYPS REMOVED DURING THE COLONOSCOPY: ??? Avoid aspirin and NSAIDS until . FINDING OUT THE RESULTS OF YOUR TEST: ??? Not all test results are available during your visit. If you had biopsies or other tests done during your procedure, you can make an appointment with your doctor to get the results. Sometimes you may be instructed to call the doctor???s office for your results. It is important for you to follow up on all of your test results. SEEK MEDICAL HELP IF: ??? You have more than a spotting of blood in your stool. ??? Your belly is swollen (abdominal distension). ??? You are nauseated and vomiting and it does not improve. ??? You have a fever greater than 101 degrees. ??? You have severe abdominal pain or discomfort that gets worse throughout the day. General Anesthesia, Adult, Care After This sheet gives you information about how to care for yourself after your procedure. Your health care provider may also give you more specific instructions. If you have problems or questions, contact your health care provider. What can I expect after the procedure? After the procedure, the following side effects are common: ??? Pain or discomfort at the IV site. ??? Nausea. ??? Vomiting. ??? Sore throat. ??? Trouble concentrating. ??? Feeling cold or chills. ??? Weak or tired. ??? Sleepiness and fatigue. ??? Soreness and body aches. These side effects can affect parts of the body that were not involved in surgery. Follow these instructions at home: For at least 24 hours after the procedure: ??? Have a responsible adult stay with you. It is important to have someone help care for you until you are awake and alert. ??? Rest as needed. ??? Do not: ? Participate in activities in which you could fall or become injured. ? Drive. ? Use heavy machinery. ? Drink alcohol. ? Take sleeping pills or medicines that cause drowsiness. ? Make important decisions or sign legal documents. ? Take care of children on your own. Eating and drinking ??? Follow any instructions from your health care provider about eating or drinking restrictions. ??? When you feel hungry, start by eating small amounts of foods that are soft and easy to digest (bland), such as toast. Gradually return to your regular diet. ??? Drink enough fluid to keep your urine pale yellow. ??? If you vomit, rehydrate by drinking water, juice, or clear broth. General instructions ??? If you have sleep apnea, surgery and certain medicines can increase your risk for breathing problems. Follow instructions from your health care provider about wearing your sleep device: ? Anytime you are sleeping, including during daytime naps. ? While taking prescription pain medicines, sleeping medicines, or medicines that make you drowsy. ??? Return to your normal activities as told by your health care provider. Ask your health care provider what activities are safe for you. ??? Take zdxl-htu-rxszsyy and prescription medicines only as told by your health care provider. ??? If you smoke, do not smoke without supervision. ??? Keep all follow-up visits as told by your health care provider. This is important. Contact a health care provider if: ??? You have nausea or vomiting that does not get better with medicine. ??? You cannot eat or drink without vomiting. ??? You have pain that does not get better with medicine. ??? You are unable to pass urine. ??? You develop a skin rash. ??? You have a fever. ??? You have redness around your IV site that gets worse. Get help right away if: ??? You have difficulty breathing. ??? You have chest pain. ??? You have blood in your urine or stool, or you vomit blood. Summary ??? After the procedure, it is common to have a sore throat or nausea. It is also common to feel tired. ??? Have a responsible adult stay with you for the first 24 hours after general anesthesia. It is important to have someone help care for you until you are awake and alert. ??? When you feel hungry, start by eating small amounts of foods that are soft and easy to digest (bland), such as toast. Gradually return to your regular diet. ??? Drink enough fluid to keep your urine pale yellow. ??? Return to your normal activities as told by your health care provider. Ask your health care provider what activities are safe for you. This information is not intended to replace advice given to you by your health care provider. Make sure you discuss any questions you have with your health care provider. Document Released: 01/30/2002 Document Revised: 10/27/2018 Document Reviewed: 06/09/2018 [employer] Patient Education ?? 2020 [employer]. Diverticulosis Diverticulosis is a condition that develops when small pouches (diverticula) form in the wall of the large intestine (colon). The colon is where water is absorbed and stool is formed. The pouches form when the inside layer of the colon pushes through weak spots in the outer layers of the colon. You may have a few pouches or many of them. What are the causes? The cause of this condition is not known. What increases the risk? The following factors may make you more likely to develop this condition: ??? Being older than age 60. Your risk for this condition increases with age. Diverticulosis is rare among people younger than age 30. By age 80, many people have it. ??? Eating a low-fiber diet. ??? Having frequent constipation. ??? Being overweight. ??? Not getting enough exercise. ??? Smoking. ??? Taking htto-ahb-wbahqxs pain medicines, like aspirin and ibuprofen. ??? Having a family history of diverticulosis. What are the signs or symptoms? In most people, there are no symptoms of this condition. If you do have symptoms, they may include: ??? Bloating. ??? Cramps in the abdomen. ??? Constipation or diarrhea. ??? Pain in the lower left side of the abdomen. How is this diagnosed? This condition is most often diagnosed during an exam for other colon problems. Because diverticulosis usually has no symptoms, it often cannot be diagnosed independently. This condition may be diagnosed by: ??? Using a flexible scope to examine the colon (colonoscopy). ??? Taking an X-ray of the colon after dye has been put into the colon (barium enema). ??? Doing a CT scan. How is this treated? You may not need treatment for this condition if you have never developed an infection related to diverticulosis. If you have had an infection before, treatment may include: ??? Eating a high-fiber diet. This may include eating more fruits, vegetables, and grains. ??? Taking a fiber supplement. ??? Taking a live bacteria supplement (probiotic). ??? Taking medicine to relax your colon. ??? Taking antibiotic medicines. Follow these instructions at home: ??? Drink 6???8 glasses of water or more each day to prevent constipation. ??? Try not to strain when you have a bowel movement. ??? If you have had an infection before: ? Eat more fiber as directed by your health care provider or your diet and shipping and receiving specialist (dietitian). ? Take a fiber supplement or probiotic, if your health care provider approves. ??? Take cliu-yum-plepwij and prescription medicines only as told by your health care provider. ??? If you were prescribed an antibiotic, take it as told by your health care provider. Do not stop taking the antibiotic even if you start to feel better. ??? Keep all follow-up visits as told by your health care provider. This is important. Contact a health care provider if: ??? You have pain in your abdomen. ??? You have bloating. ??? You have cramps. ??? You have not had a bowel movement in 3 days. Get help right away if: ??? Your pain gets worse. ??? Your bloating becomes very bad. ??? You have a fever or chills, and your symptoms suddenly get worse. ??? You vomit. ??? You have bowel movements that are bloody or black. ??? You have bleeding from your rectum. Summary ??? Diverticulosis is a condition that develops when small pouches (diverticula) form in the wall of the large intestine (colon). ??? You may have a few pouches or many of them. ??? This condition is most often diagnosed during an exam for other colon problems. ??? If you have had an infection related to diverticulosis, treatment may include increasing the fiber in your diet, taking supplements, or taking medicines. This information is not intended to replace advice given to you by your health care provider. Make sure you discuss any questions you have with your health care provider. Document Released: 07/21/2005 Document Revised: 10/06/2018 Document Reviewed: 09/12/2017 Elsevier Patient Education ?? 2020 [employer] Emergency Awareness and Preventative Care STROKE is [...] Assistance with quitting is available by contacting 4-361-OSRF-NOW. This is a free resource providing counseling, [...] and how to prevent infections, visit www.cdc.gov/sepsis. Test Results Laboratory or Other Results This Visit (last charted value for your 08/19/2020 visit) Microbiology 08/15/2020 1:30 PM Novel Coronavirus 2019: Negative Patient Name:SHERON CARVAJAL I have received this information and was given the opportunity to ask questions. Patient/Depot Manager Name: Patient/Depot Manager Signature: Relationship to Patient: Clinician/Hospital Depot Manager Signature: Date: Electronically signed by Cristiane Pearson Conversion Acute Dialysis Registered Nurse Maxinener at 02/22/2023 12:08 PM CDT documented in this encounter Plan of Treatment Upcoming Encounters Date Type Department Care Team (Late st Contact Info) Description 01/15/2025 2:45 PM EDT Office Visit [facility] [place] [address] [facility] [address] [place] [address] Jayla Ontiveros MD [address] [facility] [address] [place], [place] [id number] 09/19/2025 2:30 PM EST Appointment [facility] [address] [place] [address] documented as of this encounter Visit Diagnoses Not on filedocumented in this encounter Care Teams Band Saw Operator Relationship Specialty Start Date End Date Komal Méndez APRN PCP - General Primary Care 09/07/22 01/03/24 Suzanne Mora APRN [address] [place] [address] PCP - General Family Medicine 01/04/24 Steven Marcelo MD [address] [facility] [address] [place] [address] Surgeon General Surgery 09/07/22 Jayla Ontiveros MD [address] [facility] [address] [place] [address] Medical Oncologist Hematology and Oncology 09/07/22 Rory, Modesta Walsh, RN Nurse Navigator 03/03/23 03/20/24 documented as of this encounter
--- OUTSIDE RECORDS SUMMARY | 2024-10-05 17:17 | XMS_ITS | Encounter Summary ---
Author Organization [employer] Address [address] [place] [address] Care Team Providers Care Shoe Treer Name Role Phone Komal Méndez Nick ROSS Primary Care Provider [phone] Steven Marcelo MD Unavailable [phone] aJyla Ontiveros MD Unavailable [phone] Modesta Valadez RN Unavailable Unavailable Encounter Details Date Type Department Care Team (Late st Contact Info) Description 05/30/2020 Historic Encounter [address] [address] ProviderLamin Historical Social History Tobacco Use Types Packs/Day Years [...] Description 01/15/2025 2:45 PM EDT Office Visit [facility] [place] [address] [place] [address] Jayla Ontiveros MD [address] [facility] [address] [place] [id number] 09/19/2025 2:30 PM EST Appointment [facility] Breast [facility] [address] [place] [address] documented as of this encounter Procedures Procedure Name Priority Date/Time Associated Diagnosis Comments CORONAVIRUS 2018 NOVEL ([facility]) Routine 05/30/2020 1:15 PM EDT documented in this encounter Results * CORONAVIRUS 2019 NOVEL ([facility] CON[facility]) (05/30/2020 1:15 PM EDT) SARS-CoV-2 ([id number]) Not Detected Negative 05/31/2020 6:02 PM EDT [facility] Comment: CALLED TO:José Miguel Lucia DATE/TIME CALLED:05/31/2020 13:59:40 EDT READ BACK AND VERIFIED:y CALLED BY: Joseph Adkins Reference Lab Report Can be viewed in source system 05/30/2020 1:15 PM EDT 05/30/2020 9:38 PM EDT [facility] Historical Provider BODY FLUIDS AND STOOLS ORDERABLES Final Result [facility] [address] [phone] documented in this encounter Visit Diagnoses Not on filedocumented in this encounter Care Teams Shoe Treer Relationship Specialty Start Date End Date Komal Méndez APRN PCP - General Primary Care 09/07/22 01/03/24 Steven Marcelo MD [address] [place] [address] Surgeon General Surgery 09/07/22 Jayla Ontiveros MD [address] [place] [address] [place] [address] Medical Oncologist Hematology and Oncology 09/07/22 Modesta Valadez RN Nurse Navigator 03/03/23 03/20/24 documented as of this encounter
--- OUTSIDE RECORDS SUMMARY | 2024-10-05 17:17 | XMS_ITS | Encounter Summary ---
Author Organization [employer] Address [address] [place] [address] Care Team Providers Care Fashion Stylist Name Role Phone Komal Méndez CODY Primary Care Provider + [phone] Steven Marcelo MD Unavailable [phone] Jayla Ontiveros MD Unavailable [phone] Encounter Details Date Type Department Care Team (Late st Contact Info) Description 04/29/2022 Historic Encounter [facility] Radiology 1 [place] [address] Harris Sheppard MD [facility] [place] [id number] Social History Tobacco Use Types Packs/Day Years [...] Description 01/15/2025 2:45 PM EDT Office Visit [facility] [place] [address] [place] [address] Jayla Ontiveros MD [address] [place] [address] 09/19/2025 2:30 PM EST Appointment [address] [place] [address] documented as of this encounter Procedures Procedure Name Priority Date/Time Associated Diagnosis Comments XR SHOULDER COMPLETE 2 VIEWS MIN LEFT STAT 04/29/2022 9:40 PM EDT XR KNEE 3 VIEWS RIGHT STAT 04/29/2022 9:40 PM EDT documented in this encounter Results * XR shoulder complete 2 views min left (04/29/2022 9:40 PM EDT) Anatomical Region Laterality Modality X-Ray 04/29/2022 9:40 PM EDT Narrative 04/30/2022 3:56 AM EDT FOUR-VIEW RIGHT KNEE HISTORY: Pain. COMPARISON: None. FINDINGS: There is no fracture, dislocation or other abnormality of bone or joint. There is no joint effusion and the soft tissues are unremarkable. IMPRESSION: Unremarkable. THREE-VIEW LEFT SHOULDER ?? HISTORY: Pain. COMPARISON: None. FINDINGS: There is no fracture, dislocation or other abnormality of bone or joint. ??Soft tissues are unremarkable. IMPRESSION: Unremarkable. TWO-VIEW LEFT CLAVICLE HISTORY: Pain. COMPARISON: None. FINDINGS: There is no fracture, dislocation or other abnormality of bone or joint. ??Soft tissues are unremarkable. IMPRESSION: Unremarkable. Images reviewed, interpreted, and dictated by Dr. Harris Sheppard. Transcribed by Clinton Mosquera. I have personally viewed, interpreted and dictated the examination. I have read and agree with the above final transcribed report. Procedure Note Harris Sheppard MD - 02/22/2023 FOUR-VIEW RIGHT KNEE HISTORY: Pain. COMPARISON: None. FINDINGS: There is no fracture, dislocation or other abnormality of bone or joint. There is no joint effusion and the soft tissues are unremarkable. IMPRESSION: Unremarkable. THREE-VIEW LEFT SHOULDER HISTORY: Pain. COMPARISON: None. FINDINGS: There is no fracture, dislocation or other abnormality of bone or joint. Soft tissues are unremarkable. IMPRESSION: Unremarkable. TWO-VIEW LEFT CLAVICLE HISTORY: Pain. COMPARISON: None. FINDINGS: There is no fracture, dislocation or other abnormality of bone or joint. Soft tissues are unremarkable. IMPRESSION: Unremarkable. Images reviewed, interpreted, and dictated by Dr. Harris Sheppard. Transcribed by Clinton Mosquera. I have personally viewed, interpreted and dictated the examination. I have read and agree with the above final transcribed report. Harris Sheppard MD IMG DIAGNOSTIC IMAGING ORDERABLE S Final Result * XR KNEE 3 VIEWS RIGHT (04/29/2022 9:40 PM EDT) Anatomical Region Laterality Modality Knee X-Ray 04/29/2022 9:40 PM EDT Narrative 04/30/2022 3:56 AM EDT FOUR-VIEW RIGHT KNEE HISTORY: Pain. COMPARISON: None. FINDINGS: There is no fracture, dislocation or other abnormality of bone or joint. There is no joint effusion and the soft tissues are unremarkable. IMPRESSION: Unremarkable. THREE-VIEW LEFT SHOULDER ?? HISTORY: Pain. COMPARISON: None. FINDINGS: There is no fracture, dislocation or other abnormality of bone or joint. ??Soft tissues are unremarkable. IMPRESSION: Unremarkable. TWO-VIEW LEFT CLAVICLE HISTORY: Pain. COMPARISON: None. FINDINGS: There is no fracture, dislocation or other abnormality of bone or joint. ??Soft tissues are unremarkable. IMPRESSION: Unremarkable. Images reviewed, interpreted, and dictated by Dr. Harris Sheppard. Transcribed by Clinton Mosquera. I have personally viewed, interpreted and dictated the examination. I have read and agree with the above final transcribed report. Procedure Note Harris Sheppard MD - 02/22/2023 FOUR-VIEW RIGHT KNEE HISTORY: Pain. COMPARISON: None. FINDINGS: There is no fracture, dislocation or other abnormality of bone or joint. There is no joint effusion and the soft tissues are unremarkable. IMPRESSION: Unremarkable. THREE-VIEW LEFT SHOULDER HISTORY: Pain. COMPARISON: None. FINDINGS: There is no fracture, dislocation or other abnormality of bone or joint. Soft tissues are unremarkable. IMPRESSION: Unremarkable. TWO-VIEW LEFT CLAVICLE HISTORY: Pain. COMPARISON: None. FINDINGS: There is no fracture, dislocation or other abnormality of bone or joint. Soft tissues are unremarkable. IMPRESSION: Unremarkable. Images reviewed, interpreted, and dictated by Dr. Harris Sheppard. Transcribed by Clinton Mosquera. I have personally viewed, interpreted and dictated the examination. I have read and agree with the above final transcribed report. us Harris Sheppard MD IMG DIAGNOSTIC IMAGING ORDERABLE S Final Result documented in this encounter Visit Diagnoses Not on filedocumented in this encounter Care Teams Fashion Stylist Relationship Specialty Start Date End Date Komal Méndez, TECHNOLOGY SPECIALIST PCP - General Primary Care 09/07/22 01/03/24 Steven Marcelo MD [address] [facility] [address] [place] [address] Surgeon General Surgery 09/07/22 Jayla Ontiveros MD [address] [facility] [address] [place] [address] Medical Oncologist Hematology and Oncology 09/07/22 documented as of this encounter
--- OUTSIDE RECORDS SUMMARY | 2024-10-05 17:17 | XMS_ITS | Encounter Summary ---
Author Organization [employer] Address [address] [place] [address] Care Team Providers Care Research & Analytics Manager Name Role Phone Radha Swan APRN Primary Care Provider [phone] Steven Marcelo MD Unavailable [phone] Jayla Ontiveros MD Unavailable [phone] Modesta Valadez RN Unavailable Unavailable Suzanne Mora APRN Primary Care Provider [phone] Encounter Details Date Type Department Care Team (Late st Contact Info) Description 11/04/2019 Transcribed Document [facility] [place] [facility] [place] [address] ProviderNimisha MD [address] [place] [address] Social History Tobacco Use Types [...] - Historical ProviderMD - 11/04/2019 10:30 PM 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 [address] [address] SHERON CARVAJAL :1950 Visit Time:11/04/2019 Your Visit Summary Your Care Team Primary Provider: MIGUEL ANGEL MCKEON Secondary Provider: Your Diagnosis Acute UTI Dehydration Diarrhea Elevated blood pressure reading Renal insufficiency Vomiting Medical Information You may obtain a copy [...] do next Follow-Up Appointments Follow Up with RADHA SWAN When Within 2 to 3 days Where: [address] [place] [address]- Business (1) [place] [address] Business (1) Follow Up with [facility] When Within As needed Comments Patient stated she is currently established with Radha Swan. Feel free to contact our Patient Resource Center at [phone] for any future Physician scheduling needs. Allergies No Known Medication Allergies Immunizations This Visit No Immunizations Found Medications What How Much When Instructions Next Dose New cefdinir (cefdinir 300 mg oral capsule) 1 Capsule(s) Oral Every 12 hours Duration: 7 Day(s) Pickup at [facility] New ondansetron (Zofran ODT 4 mg oral tablet, disintegrating) 1 Tablet(s) Oral Every 6 Hours Pickup at [facility] Pharmacy Information [facility]: [address] [place] [phone] The home medications listed are only as [...] This Visit (last charted value for your 11/04/2019 visit) Hematology 11/04/2019 6:12 PM WBC: 5.0 K/uL -- Normal range between ( 3.9 and 10.0 ) RBC: 4.33 Million/uL -- Normal range between ( 3.93 and 5.22 ) Hct: 38.2 % -- Normal range between ( 34.1 and 44.9 ) Hgb: 12.7 Gram/dL -- Normal range between ( 11.2 and 15.7 ) Platelet Count: 167 K/uL -- Normal range between ( 163 and 369 ) MCH: 29.3 pg -- Normal range between ( 25.6 and 32.2 ) MCHC: 33.2 Gram/dL -- Normal range between ( 32.3 and 36.5 ) MCV: 88.2 fL -- Normal range between ( 79.0 and 94.8 ) Slide Review: No Eos %: 2.2 % -- Normal range between ( 1.0 and 7.0 ) [place] #: 0.45 K/uL -- Normal range between ( 0.24 and 0.82 ) Eos #: 0.11 K/uL -- Normal range between ( 0.04 and 0.54 ) [place] %: 9.1 % -- Normal range between ( 4.7 and 12.5 ) Baso %: 0.6 % -- Normal range between ( 0.0 and 1.0 ) Baso #: 0.03 K/uL -- Normal range between ( 0.01 and 0.08 ) RDW: 13.1 % -- Normal range between ( 11.6 and 14.4 ) Neut %: 55.8 % -- Normal range between ( 34.0 and 71.0 ) Neut #: 2.77 K/uL -- Normal range between ( 1.56 and 6.13 ) Lymph %: 32.1 % -- Normal range between ( 19.3 and 53.0 ) Lymph #: 1.59 K/uL -- Normal range between ( 1.18 and 3.74 ) MPV: 9.4 fL -- Normal range between ( 9.4 and 12.4 ) IG#: 0 x10(3)/uL IG%: 0 % -- Normal range between ( 0 and 1 ) Urinalysis 11/04/2019 9:30 PM Ur RBC: 0-2 /HPF Urine Nitrite: Negative Urine Leukocyte Esterase: Moderate Ur Epithelial Cells: 5-10 /HPF Urine Appearance: Clear Urine Glucose Dipstick: Negative Urine Blood Dipstick: Negative Urine Urobilinogen Dipstick: 1.0 EU/dL -- Normal range between ( 0.2 and 1.0 ) Urine Protein Dipstick: Negative Ur Amorph: Trace Ur Bacteria: 2+ Urine Color: Yellow Ur WBC: 20-50 /HPF Urine Ketones Dipstick: Negative Urine pH Dipstick: 5.5 -- Normal range between ( 6.0 and 8.0 ) Urine Bilirubin Dipstick: Negative Urine Specific [place]: 1.007 -- Normal range between ( 1.005 and 1.030 ) [facility] 11/04/2019 6:12 PM Creatinine Level: 1.72 mg/dL -- Normal range between ( 0.55 and 1.02 ) Sodium Level: 138 mmol/L -- Normal range between ( 136 and 146 ) Potassium Level: 3.4 mmol/L -- Normal range between ( 3.5 and 5.1 ) Chloride Level: 104 mmol/L -- Normal range between ( 102 and 112 ) Carbon Dioxide Level: 28 mmol/L -- Normal range between ( 21 and 32 ) Anion Gap: 9 -- Normal range between ( 9 and 20 ) Bilirubin Total: 0.3 mg/dL -- Normal range between ( 0.2 and 1.3 ) A/G Ratio: 1.1 -- Normal range between ( 1.1 and 2.5 ) ALT: 26 Units/Liter -- Normal range between ( 12 and 78 ) AST: 27 Units/Liter -- Normal range between ( 5 and 37 ) Globulin: 3.5 Gram/dL -- Normal range between ( 1.5 and 4.5 ) Alk Phos: 91 Units/Liter -- Normal range between ( 27 and 136 ) Bun/Creatinine: 16.3 -- Normal range between ( 8.0 and 20.0 ) Calcium Level: 9.2 mg/dL -- Normal range between ( 8.5 and 10.1 ) eGFR : 36 mL/min/1.73m2 eGFR NonAfrican: 30 mL/min/1.73m2 Glucose Level: 113 mg/dL -- Normal range between ( 74 and 106 ) Blood Urea Nitrogen: 28 mg/dL -- Normal range between ( 7 and 22 ) Protein Total: 7.3 Gram/dL -- Normal range between ( 6.4 and 8.2 ) Albumin Level: 3.8 Gram/dL -- Normal range between ( 3.4 and 5.0 ) Education Materials Dehydration, Adult Dehydration is a condition in which there is not enough fluid or water in the body. This happens when you lose more fluids than you take in. Important organs, such as the kidneys, brain, and heart, cannot function without a proper amount of fluids. Any loss of fluids from the body can lead to dehydration. Dehydration can range from mild to severe. This condition should be treated right away to prevent it from becoming severe. What are the causes? This condition may be caused by: ??? Vomiting. ??? Diarrhea. ??? Excessive sweating, such as from heat exposure or exercise. ??? Not drinking enough fluid, especially: ? When ill. ? While doing activity that requires a lot of energy. ??? Excessive urination. ??? Fever. ??? Infection. ??? Certain medicines, such as medicines that cause the body to lose excess fluid (diuretics). ??? Inability to access safe drinking water. ??? Reduced physical ability to get adequate water and food. What increases the risk? This condition is more likely to develop in people: ??? Who have a poorly controlled long-term (chronic) illness, such as diabetes, heart disease, or kidney disease. ??? Who are age 65 or older. ??? Who are disabled. ??? Who live in a place with high altitude. ??? Who play endurance sports. What are the signs or symptoms? Symptoms of mild dehydration may include: ??? Thirst. ??? Dry lips. ??? Slightly dry mouth. ??? Dry, warm skin. ??? Dizziness. Symptoms of moderate dehydration may include: ??? Very dry mouth. ??? Muscle cramps. ??? Dark urine. Urine may be the color of tea. ??? Decreased urine production. ??? Decreased tear production. ??? Heartbeat that is irregular or faster than normal (palpitations). ??? Headache. ??? Light-headedness, especially when you stand up from a sitting position. ??? Fainting (syncope). Symptoms of severe dehydration may include: ??? Changes in skin, such as: ? Cold and clammy skin. ? Blotchy (mottled) or pale skin. ? Skin that does not quickly return to normal after being lightly pinched and released (poor skin turgor). ??? Changes in body fluids, such as: ? Extreme thirst. ? No tear production. ? Inability to sweat when body temperature is high, such as in hot weather. ? Very little urine production. ??? Changes in vital signs, such as: ? Weak pulse. ? Pulse that is more than 100 beats a minute when sitting still. ? Rapid breathing. ? Low blood pressure. ??? Other changes, such as: ? Sunken eyes. ? Cold hands and feet. ? Confusion. ? Lack of energy (lethargy). ? Difficulty waking up from sleep. ? Short-term weight loss. ? Unconsciousness. How is this diagnosed? This condition is diagnosed based on your symptoms and a physical exam. Blood and urine tests may be done to help confirm the diagnosis. How is this treated? Treatment for this condition depends on the severity. Mild or moderate dehydration can often be treated at home. Treatment should be started right away. Do not wait until dehydration becomes severe. Severe dehydration is an emergency and it needs to be treated in a hospital. Treatment for mild dehydration may include: ??? Drinking more fluids. ??? Replacing salts and minerals in your blood (electrolytes) that you may have lost. Treatment for moderate dehydration may include: ??? Drinking an oral rehydration solution (ORS). This is a drink that helps you replace fluids and electrolytes (rehydrate). It can be found at pharmacies and retail stores. Treatment for severe dehydration may include: ??? Receiving fluids through an IV tube. ??? Receiving an electrolyte solution through a feeding tube that is passed through your nose and into your stomach (nasogastric tube, or NG tube). ??? Correcting any abnormalities in electrolytes. ??? Treating the underlying cause of dehydration. Follow these instructions at home: ??? If directed by your health care provider, drink an ORS: ? Make an ORS by following instructions on the package. ? Start by drinking small amounts, about ?? cup (120 mL) every 5???10 minutes. ? Slowly increase how much you drink until you have taken the amount recommended by your health care provider. ??? Drink enough clear fluid to keep your urine clear or pale yellow. If you were told to drink an ORS, finish the ORS first, then start slowly drinking other clear fluids. Drink fluids such as: ? Water. Do not drink only water. Doing that can lead to having too little salt (sodium) in the body (hyponatremia). ? Ice chips. ? Fruit juice that you have added water to (diluted fruit juice). ? Low-calorie sports drinks. ??? Avoid: ? Alcohol. ? Drinks that contain a lot of sugar. These include high-calorie sports drinks, fruit juice that is not diluted, and soda. ? Caffeine. ? Foods that are greasy or contain a lot of fat or sugar. ??? Take ohfp-aty-qlcxtsj and prescription medicines only as told by your health care provider. ??? Do not take sodium tablets. This can lead to having too much sodium in the body (hypernatremia). ??? Eat foods that contain a healthy balance of electrolytes, such as bananas, oranges, potatoes, tomatoes, and spinach. ??? Keep all follow-up visits as told by your health care provider. This is important. Contact a health care provider if: ??? You have abdominal pain that: ? Gets worse. ? Stays in one area (localizes). ??? You have a rash. ??? You have a stiff neck. ??? You are more irritable than usual. ??? You are sleepier or more difficult to wake up than usual. ??? You feel weak or dizzy. ??? You feel very thirsty. ??? You have urinated only a small amount of very dark urine over 6???8 hours. Get help right away if: ??? You have symptoms of severe dehydration. ??? You cannot drink fluids without vomiting. ??? Your symptoms get worse with treatment. ??? You have a fever. ??? You have a severe headache. ??? You have vomiting or diarrhea that: ? Gets worse. ? Does not go away. ??? You have blood or green matter (bile) in your vomit. ??? You have blood in your stool. This may cause stool to look black and tarry. ??? You have not urinated in 6???8 hours. ??? You faint. ??? Your heart rate while sitting still is over 100 beats a minute. ??? You have trouble breathing. This information is not intended to replace advice given to you by your health care provider. Make sure you discuss any questions you have with your health care provider. Document Released: 10/24/2006 Document Revised: 05/20/2017 Document Reviewed: 12/17/2016 [employer] Patient Education ?? 2019 [employer]. Urinary Tract Infection, Adult A urinary tract infection (UTI) is an infection of any part of the urinary tract, which includes the kidneys, ureters, bladder, and urethra. These organs make, store, and get rid of urine in the body. UTI can be a bladder infection (cystitis) or kidney infection (pyelonephritis). What are the causes? This infection may be caused by fungi, viruses, or bacteria. Bacteria are the most common cause of UTIs. This condition can also be caused by repeated incomplete emptying of the bladder during urination. What increases the risk? This condition is more likely to develop if: ??? You ignore your need to urinate or hold urine for long periods of time. ??? You do not empty your bladder completely during urination. ??? You wipe back to front after urinating or having a bowel movement, if you are female. ??? You are uncircumcised, if you are male. ??? You are constipated. ??? You have a urinary catheter that stays in place (indwelling). ??? You have a weak defense (immune) system. ??? You have a medical condition that affects your bowels, kidneys, or bladder. ??? You have diabetes. ??? You take antibiotic medicines frequently or for long periods of time, and the antibiotics no longer work well against certain types of infections (antibiotic resistance). ??? You take medicines that irritate your urinary tract. ??? You are exposed to chemicals that irritate your urinary tract. ??? You are female. What are the signs or symptoms? Symptoms of this condition include: ??? Fever. ??? Frequent urination or passing small amounts of urine frequently. ??? Needing to urinate urgently. ??? Pain or burning with urination. ??? Urine that smells bad or unusual. ??? Cloudy urine. ??? Pain in the lower abdomen or back. ??? Trouble urinating. ??? Blood in the urine. ??? Vomiting or being less hungry than normal. ??? Diarrhea or abdominal pain. ??? Vaginal discharge, if you are female. How is this diagnosed? This condition is diagnosed with a medical history and physical exam. You will also need to provide a urine sample to test your urine. Other tests may be done, including: ??? Blood tests. ??? Sexually transmitted disease (STD) testing. If you have had more than one UTI, a cystoscopy or imaging studies may be done to determine the cause of the infections. How is this treated? Treatment for this condition often includes a combination of two or more of the following: ??? Antibiotic medicine. ??? Other medicines to treat less common causes of UTI. ??? Xsut-jcm-lfuqbha medicines to treat pain. ??? Drinking enough water to stay hydrated. Follow these instructions at home: ??? Take rqzb-iwz-pparqgw and prescription medicines only as told by your health care provider. ??? If you were prescribed an antibiotic, take it as told by your health care provider. Do not stop taking the antibiotic even if you start to feel better. ??? Avoid alcohol, caffeine, tea, and carbonated beverages. They can irritate your bladder. ??? Drink enough fluid to keep your urine clear or pale yellow. ??? Keep all follow-up visits as told by your health care provider. This is important. ??? Make sure to: ? Empty your bladder often and completely. Do not hold urine for long periods of time. ? Empty your bladder before and after sex. ? Wipe from front to back after a bowel movement if you are female. Use each tissue one time when you wipe. Contact a health care provider if: ??? You have back pain. ??? You have a fever. ??? You feel nauseous or vomit. ??? Your symptoms do not get better after 3 days. ??? Your symptoms go away and then return. Get help right away if: ??? You have severe back pain or lower abdominal pain. ??? You are vomiting and cannot keep down any medicines or water. This information is not intended to replace advice given to you by your health care provider. Make sure you discuss any questions you have with your health care provider. Document Released: 08/03/2006 Document Revised: 04/18/2018 Document Reviewed: 09/13/2016 [employer] Patient Education ?? 2019 [employer] Emergency Awareness and Preventative Care STROKE [...] Assistance with quitting is available by contacting 6-107-CHGZ-NOW. This is a free resource providing counseling, [...] was given the opportunity to ask questions. Patient/Personal Lines Appraiser Name: Patient/Personal Lines Appraiser Signature: Relationship to Patient: Clinician/Hospital Personal Lines Appraiser Signature: Please Provide a Telephone Number Where You Can Be Reached: Is it Permissible To Leave a Message? Date: Electronically signed by Lili [facility] Conversion Church History Teacher Aurelia at 02/22/2023 12:05 PM CDT documented in this encounter Plan of Treatment Upcoming Encounters Date Type Department Care Team (Late st Contact Info) Description 01/15/2025 2:45 PM EDT Office Visit [facility] - [place] [address] [place] [phone] Jayla Ontiveros MD [address] [facility] [address] [place] [address] 09/19/2025 2:30 PM EST Appointment [facility] [address] [facility] [address] [place] [address] documented as of this encounter Visit Diagnoses Not on filedocumented in this encounter Care Teams Research & Analytics Manager Relationship Specialty Start Date End Date Radha Swan APRN PCP - General Primary Care 09/07/22 01/03/24 Suzanne Mora, CODY [address] [place] [address] PCP - General Family Medicine 01/04/24 Steven Marcelo MD [address] [facility] [address] [place] [address] Surgeon General Surgery 09/07/22 Jayla Ontiveros MD [address] [facility] [address] [place] [address] Medical Oncologist Hematology and Oncology 09/07/22 Rory, Modesta Walsh, RN Nurse Navigator 03/03/23 03/20/24 documented as of this encounter
--- OUTSIDE RECORDS SUMMARY | 2024-10-05 17:17 | XMS_ITS | Encounter Summary ---
Author Organization [employer] Address [address] [place] [address] Care Team Providers Care Skein Yarn Dyer Name Role Phone Komal Méndez APRN Primary Care Provider + [phone] Steven Marcelo MD Unavailable [phone] Jayla Ontiveros MD Unavailable [phone] Modesta Valadez RN Unavailable Unavailable Suzanne Mora APRN Primary Care Provider [phone] Encounter Details Date Type Department Care Team (Late st Contact Info) Description 08/19/2020 Transcribed Document [facility] Family Medicine [facility] [place] [address] ProviderNimisha MD [address] [place] [address] Social History Tobacco Use Types Packs/Day Years Used Date Smoking Tobacco: Never Assessed Comments Unknown Sex and Gender Information Value Date Recorded Sex Assigned at Not on file Legal Sex Female 4:30 PM CDT Gender Identity Not on file Sexual Orientation Not on file documented as of this encounter Miscellaneous Notes * Cerner Conversion Note - Historical ProviderMD - 08/19/2020 9:31 AM CDT [facility] IntraOp Summary Primary Physician: BLAKE JACOBSON MD-GAE Finalized Date/Time: 08/19/20 09:49:26 Pt. Name: SHERON CARVAJAL DAYLIN /Sex: 1950 Female [facility] Rec #: [id number] Physician: BLAKE JACOBSON MD-GAE Financial #: [id number] Pt. Type: O Room/Bed: END/ Admit/Disch: 08/19/20 08:33:00 - Institution: [facility] - Case Attendance Entry 1 Entry 2 Entry 3 Case Attendee BLAKE JACOBSON MD-GAE Vernon, Joy E, Rn Owens, Morgan, Rn Role Performed Surgeon/Proceduralist, Home Worker, First Home Worker, Second First Time In 08/19/20 09:26:00 08/19/20 09:26:00 08/19/20 09:26:00 Time Out 08/19/20 09:50:00 08/19/20 09:50:00 08/19/20 09:50:00 Procedure Colonoscopy Colonoscopy Colonoscopy Other Attendee Superficial Wound Closed By: Last Modified By: Yomaira Daily RN Vernon, Joy, RN Vernon, Joy, RN 08/19/20 09:48:52 08/19/20 09:48:52 08/19/20 09:48:52 Entry 4 Entry 5 Entry 6 Case Attendee JAN BANUELOS CRNA-ANS CELLAROSI-[facility] [place] WURTELE, JOHN L. MD-ANS Role Performed AUTOS DISASSEMBLER/Nurse Dry Ice Maker Anesthesiologist of Scrub, First Record Time In 08/19/20 09:26:00 08/19/20 09:26:00 08/19/20 09:26:00 Time Out 08/19/20 09:50:00 08/19/20 09:50:00 08/19/20 09:50:00 Procedure Colonoscopy Colonoscopy Colonoscopy Other Attendee Superficial Wound Closed By: Last Modified By: Yomaira Daily RN Vernon, Joy, RN Vernon, Joy, RN 08/19/20 09:48:52 08/19/20 09:48:52 08/19/20 09:48:52 [facility] - Case Attendance Audit 08/19/20 09:48:52 Fan Installer: [id number] Modifier: [id number] 1 <+> Time Out 1 <*> Procedure Colonoscopy 2 <+> Time Out 2 <*> Procedure Colonoscopy 3 <+> Time Out 3 <*> Procedure Colonoscopy 4 <+> Time Out 4 <*> Procedure Colonoscopy 5 <+> Time Out 5 <*> Procedure Colonoscopy 6 <+> Time Out 6 <*> Procedure Colonoscopy 08/19/20 09:31:54 Fan Installer: [id number] Modifier: [id number] 1 <+> Time In 1 <*> Procedure Colonoscopy <+> 2 Case Attendee <+> 2 Role Performed <+> 2 Time In <+> 2 Procedure <+> 3 Case Attendee <+> 3 Role Performed <+> 3 Time In <+> 3 Procedure <+> 4 Case Attendee <+> 4 Role Performed <+> 4 Time In <+> 4 Procedure <+> 5 Case Attendee <+> 5 Role Performed <+> 5 Time In <+> 5 Procedure <+> 6 Case Attendee <+> 6 Role Performed <+> 6 Time In <+> 6 Procedure [facility] - Case times Entry 1 Patient In Room Time 08/19/20 09:26:00 Out Room Time 08/19/20 09:50:00 Anesthesia Start Time 08/19/20 09:26:00 Stop Time 08/19/20 09:50:00 Surgery / Procedure Times Start Time 08/19/20 09:31:00 Stop Time 08/19/20 09:48:00 Last Modified By: Yomaira Daily RN 08/19/20 09:48:51 [facility] - Case times Audit 08/19/20 09:48:51 Fan Installer: [id number] Modifier: [id number] <+> 1 Out Room Time <+> 1 Stop Time <+> 1 Stop Time 08/19/20 09:36:19 Fan Installer: [id number] Modifier: [id number] <+> 1 Start Time [facility] - Delays Entry 1 Delay Reason Other Duration 0 Minute(s) Last Modified By: Yomaira Daily RN 08/19/20 09:32:03 [facility] - Departure from OR Entry 1 Integumentary Assessment Transfer/Handoff Transfer to Other Post-op Transport Stretcher/Gurney Via Patient Transport JAN BANUELOS, Accompanied by Killian MARTIN Joy E, Rn Last Modified By: Yomaira Daily RN 08/19/20 09:32:28 [facility] - Endoscopy Details Entry 1 Abdomen Procedure Soft, Non-distended, Assessment Non-Tender Procedure Abdomen 08/19/20 09:27:00 Assessment D/T Radio Frequency Ablation Abdominal Pressure Last Modified By: Yomaira Daily RN 08/19/20 09:32:40 [facility] - Fire Risk Assessment Entry 1 Fire Info Surgical Site or 0- No Incision Above the Xyphoid Open O2 Source 1- Yes (Mask or Cannula) Available Ignition 1- Yes (ESU, Laser, Light Source) Fire Risk 2 Assessment Score Fire Score Fire Risk Yes Assessment Complete Fire Risk Yomaira Daily Rn Assessment Verified By Fire Risk 08/19/20 09:28:00 Assessment Verified Date/Time Fire Risk Last Modified By: Yomaira Daily RN 08/19/20 09:32:56 [facility] - General Case Customer Supply Coordinator 1 Case Information OR Endo 03 [facility] Case Level 1 Room Verified Yes Wound Class III - Contaminated Specialty SN Gastroenterology Anesthesia Type MAC ASA Class 3 Diagnosis Preop Diagnosis hx of colon polyps Postop Same As Preop No Postop Diagnosis diverticulosis and hemmorhoids Last Modified By: Yomaira Daily RN 08/19/20 09:48:27 [facility] - General Case Data Audit 08/19/20 09:48:27 Fan Installer: [id number] Modifier: [id number] 1 <*> Postop Diagnosis diverticulosis 08/19/20 09:41:03 Fan Installer: [id number] Modifier: [id number] <+> 1 Postop Diagnosis [facility] - Intraoperative Assessment Entry 1 Valid History / Yes Physical in Chart Preoperative Yes Checklist Reviewed/Evaluated Patient is Latex No Sensitive Last Modified By: Yomaira Daily RN 08/19/20 09:34:28 [facility] - Intraoperative Equipment Entry 1 Type Scope Equipment Intraop Monitoring Electrocardiogram Three lead placement (ECG) Electrode Placement Blood Pressure Non-Invasive BP Device Source Antiembolic Devices Scopes Flexible Endoscopes Colonoscope Used Scope Serial T Number/Identificatio n Number Photo/Video Documentation Last Modified By: Yomaira Daily RN 08/19/20 09:35:09 [facility] - Patient Positioning Entry 1 Procedure Colonoscopy Body Position Lateral, right side up Left Arm Position Resting at side Right Arm Position Resting at side Left Leg Position Other Right Leg Position Other Position Comments Left leg straight, Right leg over left leg Positioned By BANUELOS, VERONICA MONTOYA WURTELE, JOHN L. Position Verified Last Modified By: Yomaira Daily RN 08/19/20 09:35:25 [facility] - Sign In Entry 1 Patient, Site, Yes Procedure Identified Surgical Consent Yes Confirmed Surgical Site N/A Marked by person performing procedure Airway Hypothermia Risk No Warming Measures No Taken Last Modified By: Yomaira Daily RN 08/19/20 09:32:23 [facility] - Sign Out Entry 1 RN Confirmation Surgical Yes Procedure(s) Identified Instrument, Sponge N/A and Sharps Counts Correct/Documented Equipment Problems Yes Documented Specimen Labeled N/A Correctly Urinary Catheter N/A Documented in IView Safety Checklist Yes Elements Complete? RN Sign Out Yomaira Daily Rn Signature RN Sign Out 08/19/20 09:50:00 Signature Date/Time Plan of Care Outcome - Fire Risk OUTCOME STATEMENT: Goal met Patient is free from injury related to surgical fire Plan of Care Outcome - Pt Positioning OUTCOME STATEMENT: Goal met Absence of signs and symptoms of positioning injury. Plan of Care Outcome - Skin Prep OUTCOME STATEMENT: Goal met Intraoperative care is consistent with measures to prevent infection Plan of Care Outcome - Xray/Images OUTCOME STATEMENT: N/A Absence of observable signs or symptoms of radiation injury Plan of Care Outcome - Counts OUTCOME STATEMENT: Goal met Absence of signs and symptoms of injury related to extraneous objects Last Modified By: Yomaira Daily RN 08/19/20 09:48:37 [facility] - Surgical Procedures Entry 1 Procedure Colonoscopy Primary Procedure Yes Primary Surgeon BLAKE JACOBSON MD-GAE Start 08/19/20 09:31:00 Stop 08/19/20 09:48:00 Physician States 08/19/20 09:38:00 Cecum Reached Anesthesia Type MAC Specialty SN Gastroenterology Wound Class III - Contaminated Last Modified By: Yomaiar Daily RN 08/19/20 09:48:56 [facility] - Surgical Procedures Audit 08/19/20 09:48:56 Fan Installer: [id number] Modifier: [id number] <+> 1 Stop 08/19/20 09:39:01 Fan Installer: [id number] Modifier: [id number] 1 <*> Procedure Colonoscopy 1 <+> Start 1 <+> Physician States Cecum Reached [facility] - Time Out Entry 1 Procedure to be Colonoscopy Performed Time Out Time Out Pause Time 08/19/20 09:30:00 All activity Yes suspended (unless life threatening emergency) Team Verbally Correct patient Confirms Information identity, Consent form is present and accurate, Agreement on the procedure to be done, Correct patient position, Relevant images/results properly labeled/appropriately displayed, Performed in location of procedure after prepped/draped, Reconcile problems if responses among team members differ Antibiotic N/A Prophylaxis Administered Or In Progress Within the Last 60 Minutes Beta Jagdeep N/A Administered Venous N/A Thromboembolism Prophylaxis Required Anticipated Critical Events Surgeon None expected Last Modified By: Yomaira Daily RN 08/19/20 09:36:08 Case Comments <None> Finalized By: Yomaira Daily, RN Document Signatures Signed By: Yomaira Daily RN 08/19/20 09:49 Electronically signed by [facility] Conversion Information Clerk Cerner at 02/22/2023 11:45 AM CDT documented in this encounter Plan of Treatment Upcoming Encounters Date Type Department Care Team (Late st Contact Info) Description 01/15/2025 2:45 PM EDT [facility] [address] [place] [id number] Jayla Ontiveros MD [address] [facility] [address] [place] [address] 09/19/2025 2:30 PM EST Appointment [facility] [address] [facility] [address] [place] [address] documented as of this encounter Visit Diagnoses Not on filedocumented in this encounter Care Teams Skein Yarn Dyer Relationship Specialty Start Date End Date Komal Méndez APRN PCP - General Primary Care 09/07/22 01/03/24 Suzanne Mora APRN [address] [place] [address] PCP - General Family Medicine 01/04/24 Steven Marcelo MD [address] [place] [address] Surgeon General Surgery 09/07/22 Jayla Ontievros MD [facility] [place] [address] Medical Oncologist Hematology and Oncology 09/07/22 Rory, Modesta Walsh RN Nurse Navigator 03/03/23 03/20/24 documented as of this encounter
--- OUTSIDE RECORDS SUMMARY | 2024-10-05 17:17 | XMS_ITS | Encounter Summary ---
Author Organization [employer] Address [address] [place] [address] Care Team Providers Care Motion Picture Set Grip Name Role Phone Komal Méndez Nick ROSS Primary Care Provider + [phone] Steven Marcelo MD Unavailable [phone] Jayla Ontiveros MD Unavailable [phone] Modesta Valadez RN Unavailable Unavailable Encounter Details Date Type Department Care Team (Late st Contact Info) Description 08/15/2020 Historic Encounter [address] [address] ProviderLamin Historical Social History Tobacco [...] Description 01/15/2025 2:45 PM EDT Office Visit [facility] - [place] [address] [place] [address] Jayla Ontiveros MD [address] [facility] [address] [place], [place] [id number] 09/19/2025 2:30 PM EST Appointment [facility] [address] [place] [address] documented as of this encounter Procedures Procedure Name Priority Date/Time Associated Diagnosis Comments CORONAVIRUS 2018 NOVEL ([facility] DATA CONV) Routine 08/15/2020 1:30 PM EDT documented in this encounter Results * CORONAVIRUS 2019 NOVEL ([facility] DATA CONV) (08/15/2020 1:30 PM EDT) SARS-CoV-2 ([id number]) Negative Negative 08/16/2020 5:57 AM EDT [facility] Comment: This assay is for in vitro diagnostic use under FDA Emergency Use Authorization only. Negative results do not preclude infection with the SARS-CoV-2 virus and should not be used as the sole basis of a patient treatment or public health decisions. Negative results must be considered in the context of an individual's recent exposures, history, and presence of clinical signs/symptoms. Follow-up testing should be performed according to the current CDC recommendations. Reference range: Not Detected/Negative Performing Lab: [facility] Max 0 5:57 AM EDT [facility] Reason for Testing Surveillance Other 08/15/2020 8:03 PM EDT [facility] First Test Unknown 08/15/2020 8:03 PM EDT [facility] Employed in Healthcare Unknown 08/15/2020 8:03 PM EDT [facility] Symptomatic as defined by CDC Unknown 08/15/2020 8:03 PM EDT [facility] Resident in congregate setting Unknown 08/15/2020 8:03 PM EDT [facility] Unknown 08/15/2020 8:03 PM EDT [facility] Hospitalized Unknown 08/15/2020 8:03 PM EDT [facility] ICU Unknown 08/15/2020 8:03 PM EDT [facility] 08/15/2020 1:30 PM EDT 08/15/2020 7:58 PM EDT Sle Historical Provider BODY FLUIDS AND STOOLS ORDERABLES Final Result [facility] [address] [place] [address], [facility] [phone] documented in this encounter Visit Diagnoses Not on filedocumented in this encounter Care Teams Motion Picture Set Grip Relationship Specialty Start Date End Date Komal Méndez APRN PCP - General Primary Care 09/07/22 01/03/24 Steven Marcelo MD [address] [facility] [address] [place] [address] Surgeon General Surgery 09/07/22 Jayla Ontiveros MD [address] [facility] [address] [place] [address] Medical Oncologist Hematology and Oncology 09/07/22 Rory, Modesta Walsh RN Nurse Navigator 03/03/23 03/20/24 documented as of this encounter
--- OUTSIDE RECORDS SUMMARY | 2024-10-05 17:17 | XMS_ITS | Encounter Summary ---
Author Organization [employer] Address [address] [place] [address] Care Team Providers Care Director Surgical Name Role Phone Radha Méndez APRN Primary Care Provider + [phone] Steven Marcelo MD Unavailable [phone] Jayla Ontiveros MD Unavailable [phone] Modesta Valadez RN Unavailable Unavailable Suzanne Mora APRN Primary Care Provider [phone] Encounter Details Date Type Department Care Team (Late st Contact Info) Description 11/04/2019 Transcribed Document [facility] [place] [facility] [place] [address] ProviderNimisha MD [address] [place] [address] Social History Tobacco Use Types Packs/Day Years Used Date Smoking Tobacco: Never Assessed Comments Unknown Sex and Gender Information Value Date Recorded Sex Assigned at Not on file Legal Sex Female 4:30 PM CDT Gender Identity Not on file Sexual Orientation Not on file documented as of this encounter Miscellaneous Notes * Cerner Conversion Note - Historical ProviderMD - 11/04/2019 10:31 PM DELIVERY ROOM CLERK [place] [address] [facility] [place] [address] PERSON INFORMATION Name SHERON CARVAJAL Age 68 Years 1950 Sex Female Language Nauruan PCP RADHA MÉNDEZ, MOTORS ASSEMBLER-INT Marital Status Med Service Emergency Medicine Acct# Arrival 11/04/2019 17:07:00 Visit Reason Diarrhea; Vomiting; WEAK/UNABLE TO EAT ANYTHING Acuity 3 - Urgent LOS 000 05:24 Depart Date: 00:00 AM Address: [place] [address] Comment: PROVIDER INFORMATION Provider Role Assigned Unassigned MIGUEL ANGEL MCKEON PA-[facility] ED Physician 11/04/2019 18:55:58 May, Alyse Quiles, LYMPHEDEMA THERAPIST Nurse 11/04/2019 19:27:52 DIAGNOSIS Acute UTI; Dehydration; Elevated blood pressure reading; Renal insufficiency PHYS DOC NOTES VITALS INFORMATION Vital Sign Triage Latest Temp Source Tympanic Oral Temp Mode Fahrenheit Fahrenheit Temp Fahrenheit 98.4 Deg F 98.1 Deg F Temp Celsius 02 Sat 98 % 98 % Respiratory Rate 20 Breaths/Min 16 Breaths/Min Peripheral Pulse Rate 72 bpm 72 bpm Apical Heart Rate Blood Pressure 158 mmHg / 93 mmHg 130 mmHg / 62 mmHg Comment: MEDICAL INFORMATION Allergy Info: No Known Medication Allergies Medications: Comment: DISCHARGE INFORMATION Discharge Disposition: Discharge Location: PATIENT EDUCATION INFORMATION Instructions: Dehydration, Adult; Urinary Tract Infection, Adult Follow up: With: Address: When: [place] [address] Business (8) [place] [address] Business (4) Within 2 to 3 days With: Address: When: [facility] Within As needed Comments: Patient stated she is currently established with Radha Méndez. Feel free to contact our Patient Resource Center at [phone] for any future Physician scheduling needs. Comment: documented in this encounter Plan of Treatment Upcoming Encounters Date Type Department Care Team (Late st Contact Info) Description 01/15/2025 2:45 PM EDT Office Visit [facility] - [place] [address] [place] [phone] Jayla Ontiveros MD [address] [place], [place] [id number] 09/19/2025 2:30 PM EST Appointment [facility] [address] [facility] [address] [place] [address] documented as of this encounter Visit Diagnoses Not on filedocumented in this encounter Care Teams Director Surgical Relationship Specialty Start Date End Date Radha Méndez, CHRISTIAN SCIENCE HEALER PCP - General Primary Care 09/07/22 01/03/24 Suzanne Mora, CHRISTIAN SCIENCE HEALER [address] [place] [address] PCP - General Family Medicine 01/04/24 Steven Marcelo MD [address] [facility] [address] [place] [address] Surgeon General Surgery 09/07/22 Jayla Ontiveros MD [address] [facility] [address] [place] [address] Medical Oncologist Hematology and Oncology 09/07/22 Rory, Modesta Walsh RN Nurse Navigator 03/03/23 03/20/24 documented as of this encounter
--- OUTSIDE RECORDS SUMMARY | 2024-10-05 17:17 | XMS_ITS | Encounter Summary ---
Author Organization [employer] Address [address] [place] [address] Care Team Providers Care Cold Mill Inspector Name Role Phone Irene Méndezh Ncik ROSS Primary Care Provider + [phone] Steven Marcelo MD Unavailable [phone] Jayla Ontiveros MD Unavailable [phone] Modesta Valadez RN Unavailable Unavailable Suzanne Mora APRN Primary Care Provider [phone] Encounter Details Date Type Department Care Team (Late st Contact Info) Description 08/19/2020 Transcribed Document [facility] [place] Family Medicine [facility] [place] [address] ProviderNimisha MD [address] [place] [address] Social History Tobacco Use Types Packs/Day Years Used Date Smoking Tobacco: Never Assessed Comments Unknown Sex and Gender Information Value Date Recorded Sex Assigned at Not on file Legal Sex Female 4:30 PM CDT Gender Identity Not on file Sexual Orientation Not on file documented as of this encounter Miscellaneous Notes * Cerner Conversion Note - Historical ProviderMD - 08/19/2020 9:54 AM CDT Patient Education Materials Follows: Hemorrhoids Hemorrhoids are swollen veins that may [...] 20 minutes to ease pain. Do this 3?4 times a day. You may do this [...] Leave the ice on for 20 minutes, 2?3 times a day. General instructions ??? Take rcmm-qfe-uwvbuwt and prescription medicines only as told by [...] 20 minutes to ease pain. Do this 3?4 times a day. This information is not intended to replace advice given to you by your health care provider. Make sure you discuss any questions you have with your health care provider. Document Released: 08/02/2009 Document Revised: 11/01/2019 Document Reviewed: 03/15/2019 [employer] Patient Education ? 2020 [employer]. COLONOSCOPY CARE AFTER Read the instructions outlined [...] call your doctor. HOME CARE INSTRUCTIONS ACTIVITY: ?? You may resume your regular activity tomorrow, but move at a slower pace for the next 24 hours. ?? Take frequent rest periods for the next 24 hours. ?? Walking will help get rid of the air and reduce the bloated feeling in your belly (abdomen). ?? No driving for 24 hours because of the medication (sedation) used during the test. ?? You may shower. ?? Do not sign any important legal documents or operate any machinery for 24 hours (because of the sedation used during the test). NUTRITION: ?? Drink plenty of fluids. ?? You may resume your normal diet or as instructed by your doctor. ?? Begin with a light meal and progress to your normal diet. Heavy or fried foods are harder to digest and may make you feel sick to your stomach (nauseated). ?? Avoid alcoholic beverages for 24 hours or as instructed. MEDICATIONS: ?? You may resume your normal medications unless your doctor tells you otherwise. WHAT TO EXPECT TODAY: ?? Some feelings of bloating in the abdomen. ?? Passage of more gas than usual. ?? Spotting of blood in your stool or on the toilet paper. ?? No bowel movements for 1-3 days due to colon prep. IF YOU HAD POLYPS REMOVED DURING THE COLONOSCOPY: ?? Avoid aspirin and NSAIDS until . FINDING OUT THE RESULTS OF YOUR TEST: ?? Not all test results are available during your visit. If you had biopsies or other tests done during your procedure, you can make an appointment with your doctor to get the results. Sometimes you may be instructed to call the doctor's office for your results. It is important for you to follow up on all of your test results. SEEK MEDICAL HELP IF: ?? You have more than a spotting of blood in your stool. ?? Your belly is swollen (abdominal distension). ?? You are nauseated and vomiting and it does not improve. ?? You have a fever greater than 101 degrees. ?? You have severe abdominal pain or discomfort [...] activities are safe for you. ??? Take imim-kbr-idpqgkm and prescription medicines only as told by [...] 01/30/2002 Document Revised: 10/27/2018 Document Reviewed: 06/09/2018 [employer] Patient Education ? 2020 [employer]. Diverticulosis Diverticulosis is a condition that develops [...] getting enough exercise. ??? Smoking. ??? Taking kgyr-sru-vnrksfj pain medicines, like aspirin and ibuprofen. ??? [...] Follow these instructions at home: ??? Drink 6?8 glasses of water or more each day to prevent constipation. ??? Try not to strain when you have a bowel movement. ??? If you have had an infection before: ? Eat more fiber as directed by your health care provider or your diet and news specialist (dietitian). ? Take a fiber supplement or probiotic, if your health care provider approves. ??? Take xuze-obg-smyxwpf and prescription medicines only as told by [...] 07/21/2005 Document Revised: 10/06/2018 Document Reviewed: 09/12/2017 [employer] Patient Education ? 2020 [employer] documented in this encounter Plan of Treatment Upcoming Encounters Date Type Department Care Team (Late st Contact Info) Description 01/15/2025 2:45 PM EDT Office Visit [facility] [place] [address] [place] [address] Jayla Ontiveros MD [address] [facility] [address] [place] [address] 09/19/2025 2:30 PM EST Appointment [facility] [address] [facility] [address] [place] [address] documented as of this encounter Visit Diagnoses Not on filedocumented in this encounter Care Teams Cold Mill Inspector Relationship Specialty Start Date End Date Komal Méndez APRN PCP - General Primary Care 09/07/22 01/03/24 Suzanne Mora, CODY [address] [place] [address] PCP - General Family Medicine 01/04/24 Steven Marcelo MD [address] [facility] [address] [place] [address] Surgeon General Surgery 09/07/22 Jayla Ontiveros MD [address] [facility] [address] [place] [address] Medical Oncologist Hematology and Oncology 09/07/22 Rory, Modesta Walsh RN Nurse Navigator 03/03/23 03/20/24 documented as of this encounter
--- OUTSIDE RECORDS SUMMARY | 2024-10-05 17:17 | XMS_ITS | Encounter Summary ---
Author Organization [employer] [facility] Address [address] [place] [address] Care Team Providers Care Printed Circuit Boards Contact Printer Name Role Phone Komal Méndez APRN Primary Care Provider + [phone] Steven Marcelo MD Unavailable [phone] Jayla Ontiveros MD Unavailable [phone] Modesta Valadez RN Unavailable Unavailable Suzanne Mora APRN Primary Care Provider [phone] Encounter Details Date Type Department Care Team (Late st Contact Info) Description 11/07/2019 Transcribed Document [facility] [place] [facility] [place] [address] ProviderNimisha MD [address] [place] [address] Social History Tobacco Use Types Packs/Day Years Used Date Smoking Tobacco: Never Assessed Comments Unknown Sex and Gender Information Value Date Recorded Sex Assigned at Not on file Legal Sex Female 4:30 PM CDT Gender Identity Not on file Sexual Orientation Not on file documented as of this encounter Miscellaneous Notes * Cerner Conversion Note - Historical ProviderMD - 11/07/2019 11:26 AM 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 Urine Culture Collected: 11/04/2019 Complete Body site: Specimen Type: U CleanCatch 11/07/2019 08:35 11/07/2019 11:26 (KAPIL GRIER APRN-EMR) Reviewed by Provider, No further action required Electronically signed by Cristiane Pearson Conversion Detective Automobile Section Cerner at 02/22/2023 11:46 AM CDT documented in this encounter Plan of Treatment Upcoming Encounters Date Type Department Care Team (Late st Contact Info) Description 01/15/2025 2:45 PM EDT Office Visit [facility] [place] [address] [place] [address] Jayla Ontiveros MD [address] [place] [address] 09/19/2025 2:30 PM EST Appointment [facility] [address] [place] [address] documented as of this encounter Visit Diagnoses Not on filedocumented in this encounter Care Teams Printed Circuit Boards Contact Printer Relationship Specialty Start Date End Date Komal Méndez APRN PCP - General Primary Care 09/07/22 01/03/24 Suzanne Mora, SOIL EXPERT [address] [place] [phone] PCP - General Family Medicine 01/04/24 Steven Marcelo MD [address] [place] [address] Surgeon General Surgery 09/07/22 Jayla Ontiveros MD [address] [place] [address] Medical Oncologist Hematology and Oncology 09/07/22 Rory, Modesta Walsh, RN Nurse Navigator 03/03/23 03/20/24 documented as of this encounter
--- OUTSIDE RECORDS SUMMARY | 2024-10-05 17:17 | XMS_ITS | Encounter Summary ---
Author Organization [employer] Address [address] [place] [address] Care Team Providers Care Sld Teacher Name Role Phone Komal Méndez Nick ROSS Primary Care Provider + [phone] Steven Marcelo MD Unavailable [phone] Jayla Ontiveros MD Unavailable [phone] Encounter Details Date Type Department Care Team (Late st Contact Info) Description 08/07/2020 Historic Encounter [facility] Radiology [address] [place] [address] Myriam Tomas MD [address] [place] [address] Social History Tobacco Use Types Packs/Day Years [...] Description 01/15/2025 2:45 PM EDT Office Visit [facility] [place] [address] [place] [address] Jayla Ontiveros MD [address] [place] [address] 09/19/2025 2:30 PM EST Appointment [facility] [address] [facility] [address] [place] [address] documented as of this encounter Procedures Procedure Name Priority Date/Time Associated Diagnosis Comments DXA BONE DENSITY SPINE AND HIP Routine 08/07/2020 3:27 PM EDT documented in this encounter Results * DXA bone density spine and hip (08/07/2020 3:27 PM EDT) Anatomical Region Laterality Modality Bone Radiographic Jodi ging 08/07/2020 3:27 PM EDT Narrative 08/07/2020 9:10 PM EDT PROCEDURE: BONE DENSITOMETRY (DXA) REASON FOR EXAM: Postmenopausal female with low bone density RISK FACTORS: Estrogen deficiency COMPARISON STUDY: 12/26/2013 from [facility] FINDINGS: Bone densitometry was performed using a [employer] QDR series machine. Sites measured included the spine and left hip. Both sites appear to be valid. Using L1-4, ??the bone mineral density of the spine is 0.930 g/cm2, compared to 0.922 g/cm2 on the prior exam. This corresponds to a T-score of -1.1 ??on the present exam, compared to a T-score of -1.1 ??previously. Using the femoral neck, the bone mineral density of the hip is 0.702 g/cm2, compared to 0.687 g/cm2 on the prior exam. This corresponds to a T-score of ??-1.3 on the present exam, compared to a T-score of -1.5 previously. NOTE: ?T-score: standard deviation compared with peak bone mass of young adult mean. ?Z-score: standard deviation compared with age-matched mean. * Following the recommendations of the International Society of Bone Densitometry, classification of hip BMD is based upon the lower of two T-scores; total hip or femoral neck. FINAL IMPRESSION: LOW BONE DENSITY/OSTEOPENIA: ??Lowest T-score is between -1.0 and -2.5. FRAX (WHO FRACTURE ASSESSMENT TOOL): ??10-year fracture risk for this patient is 0.9% at the hip and 8.5% for other sites. The National Osteoporosis Foundation Clinician's Guide, published in December 2007, suggests pharmacologic intervention when the risk of hip fracture reaches 3% (or 20% for ANY osteoporotic fracture). *FRAX can be assessed on the internet at www.shef.ac.uk/FRAX PREVENTION//FOLLOW-UP GUIDELINES: Ensure adequate Calcium and Vitamin D intake/supplementation. Encourage weight bearing exercise. RECOMMENDATION: Follow-up DXA in 2 years is advised. ?? Procedure Note Myriam Tomas MD - 02/22/2023 PROCEDURE: BONE DENSITOMETRY (DXA) REASON FOR EXAM: Postmenopausal female with low bone density RISK FACTORS: Estrogen deficiency COMPARISON STUDY: 12/26/2013 from [facility] FINDINGS: Bone densitometry was performed using a [employer] QDR series machine. Sites measured included the spine and left hip. Both sites appear to be valid. Using L1-4, the bone mineral density of the spine is 0.930 g/cm2, compared to 0.922 g/cm2 on the prior exam. This corresponds to a T-score of -1.1 on the present exam, compared to a T-score of -1.1 previously. Using the femoral neck, the bone mineral density of the hip is 0.702 g/cm2, compared to 0.687 g/cm2 on the prior exam. This corresponds to a T-score of -1.3 on the present exam, compared to a T-score of -1.5 previously. NOTE: T-score: standard deviation compared with peak bone mass of young adult mean. Z-score: standard deviation compared with age-matched mean. * Following the recommendations of the International Society of Bone Densitometry, classification of hip BMD is based upon the lower of two T-scores; total hip or femoral neck. FINAL IMPRESSION: LOW BONE DENSITY/OSTEOPENIA: Lowest T-score is between -1.0 and -2.5. FRAX (WHO FRACTURE ASSESSMENT TOOL): 10-year fracture risk for this patient is 0.9% at the hip and 8.5% for other sites. The National Osteoporosis Foundation Clinician's Guide, published in December 2007, suggests pharmacologic intervention when the risk of hip fracture reaches 3% (or 20% for ANY osteoporotic fracture). *FRAX can be assessed on the internet at www.shef.ac.uk/FRAX PREVENTION//FOLLOW-UP GUIDELINES: Ensure adequate Calcium and Vitamin D intake/supplementation. Encourage weight bearing exercise. RECOMMENDATION: Follow-up DXA in 2 years is advised. us Myriam Tomas MD IMG DXA ORDERABLES Final Resul t documented in this encounter Visit Diagnoses Not on filedocumented in this encounter Care Teams Sld Teacher Relationship Specialty Start Date End Date Komal Méndez, CODY PCP - General Primary Care 09/07/22 01/03/24 Steven Marcelo MD [address] [facility] [address] [place] [address] Surgeon General Surgery 09/07/22 Jayla Ontiveros MD [address] [facility] [address] [place] [address] Medical Oncologist Hematology and Oncology 09/07/22 documented as of this encounter
--- OUTSIDE RECORDS SUMMARY | 2024-10-05 17:17 | XMS_ITS | Encounter Summary ---
Author Organization [employer] Address [address] [place] [address] Care Team Providers Care Program Developer Name Role Phone Komal Méndez APRN Primary Care Provider + [phone] Steven Marcelo MD Unavailable [phone] Jayla Ontiveros MD Unavailable [phone] Modesta Valadez RN Unavailable Unavailable Suzanne Mora APRN Primary Care Provider [phone] Encounter Details Date Type Department Care Team (Late st Contact Info) Description 04/29/2022 Transcribed Document [facility] [place] [facility] [place] [address] ProviderNimisha MD [address] [place] [address] Social History Tobacco Use Types Packs/Day Years Used Date Smoking Tobacco: Never Assessed Comments Unknown Sex and Gender Information Value Date Recorded Sex Assigned at Not on file Legal Sex Female 4:30 PM CDT Gender Identity Not on file Sexual Orientation Not on file documented as of this encounter Miscellaneous Notes * Cerner Conversion Note - Historical ProviderMD - 04/29/2022 9:50 PM CDT Electronically signed by [facility] Conversion Facing Baster Cerner at 02/22/2023 11:55 AM CDT documented in this encounter Plan of Treatment Upcoming Encounters Date Type Department Care Team (Late st Contact Info) Description 01/15/2025 2:45 PM EDT Office Visit [facility] [place] [address] [place] [phone] Jayla Ontiveros MD [address] [facility] [address] [place], [place] [address] 09/19/2025 2:30 PM EST Appointment [facility] [address] [facility] [address] [place] [address] documented as of this encounter Visit Diagnoses Not on filedocumented in this encounter Care Teams Program Developer Relationship Specialty Start Date End Date Komal Méndez ELECTRICAL TIMING DEVICE CALIBRATOR PCP - General Primary Care 09/07/22 01/03/24 Suzanne Mora, ELECTRICAL TIMING DEVICE CALIBRATOR [address] [place] [address] PCP - General Family Medicine 01/04/24 Steven Marcelo MD [address] [facility] [address] [place] [address] Surgeon General Surgery 09/07/22 Jayla Ontiveros MD [address] [facility] [address] [place] [address] Medical Oncologist Hematology and Oncology 09/07/22 Rory, Modesta Walsh, RN Nurse Navigator 03/03/23 03/20/24 documented as of this encounter
--- OUTSIDE RECORDS SUMMARY | 2024-10-05 17:17 | XMS_ITS | Encounter Summary ---
Author Organization [employer] Address [address] [place] [address] Care Team Providers Care Kettle Firer Name Role Phone Irene Méndezh Nick ROSS Primary Care Provider [phone] Steven Marcelo MD Unavailable [phone] Jayla Ontiveros MD Unavailable [phone] Modesta Valadez RN Unavailable Unavailable Suzanne Mora APRN Primary Care Provider [phone] Encounter Details Date Type Department Care Team (Late st Contact Info) Description 04/29/2022 Transcribed Document [facility] [place] [facility] [place] [address] ProviderNimisha MD [address] [place] [address] Social History Tobacco Use Types Packs/Day Years Used Date Smoking Tobacco: Never Assessed Comments Unknown Sex and Gender Information Value Date Recorded Sex Assigned at Not on file Legal Sex Female 4:30 PM CDT Gender Identity Not on file Sexual Orientation Not on file documented as of this encounter Miscellaneous Notes * Cerner Conversion Note - Historical ProviderMD - 04/29/2022 10:00 PM CDT [address] [address] SHERON CARVAJAL :1950 Visit Time:04/29/2022 Your Visit Summary Your Care Team Primary Provider: KIM REAGAN Secondary Provider: Your Diagnosis Fall Fall at home Knee injury Shoulder injury Medical Information You may obtain a copy [...] do next Follow-Up Appointments Follow Up with DEVANTE SOLOMON When Within 2 to 3 days Comments 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 [place] [address]- Business (1) Follow Up with MOISE DUEÑAS When Within 2 to 3 days Comments Call for follow up appointment with orthopedist for further evaluation and management of your injury, rest, ice, elevate your right knee and left shoulder, return to ER for worsening of the symptoms: Increasing pain, shortness of breath, fever Where: [address] [facility] [address] [place] [id number]- Business (1) Follow Up with RADHA MÉNDEZ When Within 2 to 3 days Allergies No Known Medication Allergies Medications What How Much When Instructions Next [...] Oral Every Day 1000 unit, vitamin D The home medications listed are only as [...] This Visit (last charted value for your 04/29/2022 visit) No Laboratory or Other Results This Visit Education Materials Knee Sprain, Adult A knee sprain is a stretch or tear in a knee ligament. Knee ligaments are tissues that connect bones in the knee to each other. What are the causes? This condition often results from: ??? A fall. ??? An injury to the knee. What are the signs or symptoms? Symptoms of this condition include: ??? Trouble straightening or bending the leg. ??? Swelling in the knee. ??? Bruising around the knee. ??? Tenderness or pain in the knee. ??? Muscle spasms around the knee. How is this diagnosed? This condition may be diagnosed based on: ??? A physical exam. ??? A history of what happened just before you started to have symptoms. ??? Tests, including: ? An X-ray. This may be done to make sure no bones are broken. ? An MRI. This may be done to check if the ligament is torn. ? Stress testing of the knee. This may be done to check ligament damage. How is this treated? Treatment for this condition may involve: ??? Keeping the knee still (immobilized) with a cast, brace, or splint. ??? Applying ice to the knee. This helps with pain and swelling. ??? Raising (elevating) the knee above the level of your heart when you are resting. This helps with pain and swelling. ??? Taking medicine for pain. ??? Doing exercises to prevent or limit permanent weakness or stiffness in your knee. ??? Having surgery to reconnect the ligament to the bone or to reconstruct it. This may be needed if the ligament is completely torn. Follow these instructions at home: If you have a splint or brace: ??? Wear it as told by your health care provider. Remove it only as told by your health care provider. ??? Check the skin around it every day. Tell your health care provider about any concerns. ??? Loosen it if your toes tingle, become numb, or turn cold and blue. ??? Keep it clean and dry. If you have a cast: ??? Do not stick anything inside it to scratch your skin. Doing that increases your risk of infection. ??? Check the skin around it every day. Tell your health care provider about any concerns. ??? You may put lotion on dry skin around the edges of the cast. Do not put lotion on the skin underneath the cast. ??? Keep it clean and dry. Bathing If you have a splint, brace, or cast that is not waterproof: ??? Do not let it get wet. ??? Cover it with a watertight covering when you take a bath or a shower. Managing pain, stiffness, and swelling ??? If directed, put ice on the injured area. To do this: ? If you have a removable splint or brace, remove it as told by your health care provider. ? Put ice in a plastic bag. ? Place a towel between your skin and the bag or between your cast and the bag. ? Leave the ice on for 20 minutes, 2???3 times a day. ??? Move your toes often to reduce stiffness and swelling. ??? Elevate the injured area above the level of your heart while you are sitting or lying down. General instructions ??? Take vclt-ugk-rhbszrc and prescription medicines only as told by your health care provider. ??? Do not use any products that contain nicotine or tobacco, such as cigarettes, e-cigarettes, and chewing tobacco. These can delay healing. If you need help quitting, ask your health care provider. ??? Do exercises as told by your health care provider. ??? Keep all follow-up visits as told by your health care provider. This is important. Contact a health care provider if: ??? You have pain that gets worse. ??? The cast, brace, or splint does not fit right. ??? The cast, brace, or splint gets damaged. Get help right away if: ??? You cannot use your injured knee to support any of your body weight (cannot bear weight). ??? You cannot move the injured joint. ??? You cannot walk more than a few steps without pain or without your knee buckling. ??? You have significant pain, swelling, or numbness in the leg below the cast, brace, or splint. ??? Your foot or toes are numb, cold, or blue after loosening your splint or brace. Summary ??? A knee sprain is a stretch or tear in a knee ligament that usually occurs as the result of a fall or injury. ??? Treatment may involve immobilizing the knee with a cast, splint, or brace and then doing exercises. ??? If the ligament is completely torn, it may require surgery to repair or replace the injured ligament. This information is not intended to replace advice given to you by your health care provider. Make sure you discuss any questions you have with your health care provider. Document Revised: 09/12/2020 Document Reviewed: 09/12/2020 [employer] Patient Education ?? 2020 [employer]. Shoulder Sprain A shoulder sprain is a partial or complete tear in one of the tough, fiber-like tissues (ligaments) in the shoulder. The ligaments in the shoulder help to hold the shoulder in place. What are the causes? This condition may be caused by: ??? A fall. ??? A hit to the shoulder. ??? A twist of the arm. What increases the risk? You are more likely to develop this condition if you: ??? Play sports. ??? Have problems with balance or coordination. What are the signs or symptoms? Symptoms of this condition include: ??? Pain when moving the shoulder. ??? Limited ability to move the shoulder. ??? Swelling and tenderness on top of the shoulder. ??? Warmth in the shoulder. ??? A change in the shape of the shoulder. ??? Redness or bruising on the shoulder. How is this diagnosed? This condition is diagnosed with: ??? A physical exam. During the exam, you may be asked to do simple exercises with your shoulder. ??? Imaging tests such as X-rays, MRI, or a CT scan. These tests can show how severe the sprain is. How is this treated? This condition may be treated with: ??? Rest. ??? Pain medicine. ??? Ice. ??? A sling or brace. This is used to keep the arm still while the shoulder is healing. ??? Physical therapy or rehabilitation exercises. These help to improve the range of motion and strength of the shoulder. ??? Surgery (rare). Surgery may be needed if the sprain caused a joint to become unstable. Surgery may also be needed to reduce pain. Some people may develop ongoing shoulder pain or lose some range of motion in the shoulder. However, most people do not develop long-term problems. Follow these instructions at home: If you have a sling or brace: ??? Wear the sling or brace as told by your health care provider. Remove it only as told by your health care provider. ??? Loosen the sling or brace if your fingers tingle, become numb, or turn cold and blue. ??? Keep the sling or brace clean. ??? If the sling or brace is not waterproof: ? Do not let it get wet. ? Cover it with a watertight covering when you take a bath or shower. Activity ??? Rest your shoulder. ??? Move your arm only as much as told by your health care provider, but move your hand and fingers often to prevent stiffness and swelling. ??? Return to your normal activities as told by your health care provider. Ask your health care provider what activities are safe for you. ??? Ask your health care provider when it is safe for you to drive if you have a sling or brace on your shoulder. ??? If you were shown how to do any exercises, do them as told by your health care provider. General instructions ??? If directed, put ice on the affected area. ? Put ice in a plastic bag. ? Place a towel between your skin and the bag. ? Leave the ice on for 20 minutes, 2???3 times a day. ??? Take cxjb-dtq-oboaxbe and prescription medicines only as told by your health care provider. ??? Do not use any products that contain nicotine or tobacco, such as cigarettes, e-cigarettes, and chewing tobacco. These can delay healing. If you need help quitting, ask your health care provider. ??? Keep all follow-up visits as told by your health care provider. This is important. Contact a health care provider if: ??? Your pain gets worse. ??? Your pain is not relieved with medicines. ??? You have increased redness or swelling. Get help right away if: ??? You have a fever. ??? You cannot move your arm or shoulder. ??? You develop severe numbness or tingling in your arm, hand, or fingers. ??? Your arm, hand, or fingers feel cold and turn blue, white, or huggins. Summary ??? A shoulder sprain is a partial or complete tear in one of the tough, fiber-like tissues (ligaments) in the shoulder. ??? This condition may be caused by a fall, a hit to the shoulder, or a twist of the arm. ??? Treatment usually includes rest, ice, and pain medicine as needed. ??? If you have a sling or brace, wear it as told by your health care provider. Remove it only as told by your health care provider. This information is not intended to replace advice given to you by your health care provider. Make sure you discuss any questions you have with your health care provider. Document Revised: 03/30/2019 Document Reviewed: 03/30/2019 [employer] Patient Education ?? 2020 [employer] Hypertension, Adult High blood pressure (hypertension) is when the force of blood pumping through the arteries is too strong. The arteries are the blood vessels that carry blood from the heart throughout the body. Hypertension forces the heart to work harder to pump blood and may cause arteries to become narrow or stiff. Untreated or uncontrolled hypertension can cause a heart attack, heart failure, a stroke, kidney disease, and other problems. A blood pressure reading consists of a higher number over a lower number. Ideally, your blood pressure should be below 120/80. The first ( top ) number is called the systolic pressure. It is a measure of the pressure in your arteries as your heart beats. The second ( bottom ) number is called the diastolic pressure. It is a measure of the pressure in your arteries as the heart relaxes. What are the causes? The exact cause of this condition is not known. There are some conditions that result in or are related to high blood pressure. What increases the risk? Some risk factors for high blood pressure are under your control. The following factors may make you more likely to develop this condition: ??? Smoking. ??? Having type 2 diabetes mellitus, high cholesterol, or both. ??? Not getting enough exercise or physical activity. ??? Being overweight. ??? Having too much fat, sugar, calories, or salt (sodium) in your diet. ??? Drinking too much alcohol. Some risk factors for high blood pressure may be difficult or impossible to change. Some of these factors include: ??? Having chronic kidney disease. ??? Having a family history of high blood pressure. ??? Age. Risk increases with age. ??? Race. You may be at higher risk if you are . ??? Gender. Men are at higher risk than women before age 45. After age 65, women are at higher risk than men. ??? Having obstructive sleep apnea. ??? Stress. What are the signs or symptoms? High blood pressure may not cause symptoms. Very high blood pressure (hypertensive crisis) may cause: ??? Headache. ??? Anxiety. ??? Shortness of breath. ??? Nosebleed. ??? Nausea and vomiting. ??? Vision changes. ??? Severe chest pain. ??? Seizures. How is this diagnosed? This condition is diagnosed by measuring your blood pressure while you are seated, with your arm resting on a flat surface, your legs uncrossed, and your feet flat on the floor. The cuff of the blood pressure monitor will be placed directly against the skin of your upper arm at the level of your heart. It should be measured at least twice using the same arm. Certain conditions can cause a difference in blood pressure between your right and left arms. Certain factors can cause blood pressure readings to be lower or higher than normal for a short period of time: ??? When your blood pressure is higher when you are in a health care provider's office than when you are at home, this is called white coat hypertension. Most people with this condition do not need medicines. ??? When your blood pressure is higher at home than when you are in a health care provider's office, this is called masked hypertension. Most people with this condition may need medicines to control blood pressure. If you have a high blood pressure reading during one visit or you have normal blood pressure with other risk factors, you may be asked to: ??? Return on a different day to have your blood pressure checked again. ??? Monitor your blood pressure at home for 1 week or longer. If you are diagnosed with hypertension, you may have other blood or imaging tests to help your health care provider understand your overall risk for other conditions. How is this treated? This condition is treated by making healthy lifestyle changes, such as eating healthy foods, exercising more, and reducing your alcohol intake. Your health care provider may prescribe medicine if lifestyle changes are not enough to get your blood pressure under control, and if: ??? Your systolic blood pressure is above 130. ??? Your diastolic blood pressure is above 80. Your personal target blood pressure may vary depending on your medical conditions, your age, and other factors. Follow these instructions at home: Eating and drinking ??? Eat a diet that is high in fiber and potassium, and low in sodium, added sugar, and fat. An example eating plan is called the DASH (Dietary Approaches to Stop Hypertension) diet. To eat this way: ? Eat plenty of fresh fruits and vegetables. Try to fill one half of your plate at each meal with fruits and vegetables. ? Eat whole grains, such as whole-wheat pasta, brown rice, or whole-grain bread. Fill about one fourth of your plate with whole grains. ? Eat or drink low-fat dairy products, such as skim milk or low-fat yogurt. ? Avoid fatty cuts of meat, processed or cured meats, and poultry with skin. Fill about one fourth of your plate with lean proteins, such as fish, chicken without skin, beans, eggs, or tofu. ? Avoid pre-made and processed foods. These tend to be higher in sodium, added sugar, and fat. ??? Reduce your daily sodium intake. Most people with hypertension should eat less than 1,500 mg of sodium a day. ??? Do not drink alcohol if: ? Your health care provider tells you not to drink. ? You are , may be , or are planning to become . ??? If you drink alcohol: ? Limit how much you use to: ? 0???1 drink a day for women. ? 0???2 drinks a day for men. ? Be aware of how much alcohol is in your drink. In the [place] one drink equals one 12 oz bottle of beer (355 mL), one 5 oz glass of wine (148 mL), or one 1?? oz glass of hard liquor (44 mL). Lifestyle ??? Work with your health care provider to maintain a healthy body weight or to lose weight. Ask what an ideal weight is for you. ??? Get at least 30 minutes of exercise most days of the week. Activities may include walking, swimming, or biking. ??? Include exercise to strengthen your muscles (resistance exercise), such as Pilates or lifting weights, as part of your weekly exercise routine. Try to do these types of exercises for 30 minutes at least 3 days a week. ??? Do not use any products that contain nicotine or tobacco, such as cigarettes, e-cigarettes, and chewing tobacco. If you need help quitting, ask your health care provider. ??? Monitor your blood pressure at home as told by your health care provider. ??? Keep all follow-up visits as told by your health care provider. This is important. Medicines ??? Take zhhh-uot-xjnwgal and prescription medicines only as told by your health care provider. Follow directions carefully. Blood pressure medicines must be taken as prescribed. ??? Do not skip doses of blood pressure medicine. Doing this puts you at risk for problems and can make the medicine less effective. ??? Ask your health care provider about side effects or reactions to medicines that you should watch for. Contact a health care provider if you: ??? Think you are having a reaction to a medicine you are taking. ??? Have headaches that keep coming back (recurring). ??? Feel dizzy. ??? Have swelling in your ankles. ??? Have trouble with your vision. Get help right away if you: ??? Develop a severe headache or confusion. ??? Have unusual weakness or numbness. ??? Feel faint. ??? Have severe pain in your chest or abdomen. ??? Vomit repeatedly. ??? Have trouble breathing. Summary ??? Hypertension is when the force of blood pumping through your arteries is too strong. If this condition is not controlled, it may put you at risk for serious complications. ??? Your personal target blood pressure may vary depending on your medical conditions, your age, and other factors. For most people, a normal blood pressure is less than 120/80. ??? Hypertension is treated with lifestyle changes, medicines, or a combination of both. Lifestyle changes include losing weight, eating a healthy, low-sodium diet, exercising more, and limiting alcohol. This information is not intended to replace advice given to you by your health care provider. Make sure you discuss any questions you have with your health care provider. Document Revised: 07/04/2019 Document Reviewed: 07/04/2019 [employer] Patient Education ?? 2020 [employer] Fall Prevention in the Home, Adult Falls can cause injuries and can affect people from all age groups. There are many simple things that you can do to make your home safe and to help prevent falls. Ask for help when making these changes, if needed. What actions can I take to prevent falls? General instructions ??? Use good lighting in all rooms. Replace any light bulbs that burn out. ??? Turn on lights if it is dark. Use night-lights. ??? Place frequently used items in anbu-lr-pdksu places. Lower the shelves around your home if necessary. ??? Set up furniture so that there are clear paths around it. Avoid moving your furniture around. ??? Remove throw rugs and other tripping hazards from the floor. ??? Avoid walking on wet floors. ??? Fix any uneven floor surfaces. ??? Add color or contrast paint or tape to grab bars and handrails in your home. Place contrasting color strips on the first and last steps of stairways. ??? When you use a stepladder, make sure that it is completely opened and that the sides are firmly locked. Have someone hold the ladder while you are using it. Do not climb a closed stepladder. ??? Be aware of any and all pets. What can I do in the bathroom? Keep the floor dry. Immediately clean up any water that spills onto the floor. ??? Remove soap buildup in the tub or shower on a regular basis. ??? Use non-skid mats or decals on the floor of the tub or shower. ??? Attach bath mats securely with double-sided, non-slip rug tape. ??? If you need to sit down while you are in the shower, use a plastic, non-slip stool. ??? Install grab bars by the toilet and in the tub and shower. Do not use towel bars as grab bars. What can I do in the bedroom? Make sure that a bedside light is easy to reach. ??? Do not use oversized bedding that drapes onto the floor. ??? Have a firm chair that has side arms to use for getting dressed. What can I do in the kitchen? Clean up any spills right away. ??? If you need to reach for something above you, use a sturdy step stool that has a grab bar. ??? Keep electrical cables out of the way. ??? Do not use floor yakut or wax that makes floors slippery. If you must use wax, make sure that it is non-skid floor wax. What can I do in the stairways? Do not leave any items on the stairs. ??? Make sure that you have a light switch at the top of the stairs and the bottom of the stairs. Have them installed if you do not have them. ??? Make sure that there are handrails on both sides of the stairs. Fix handrails that are broken or loose. Make sure that handrails are as long as the stairways. ??? Install non-slip stair treads on all stairs in your home. ??? Avoid having throw rugs at the top or bottom of stairways, or secure the rugs with carpet tape to prevent them from moving. ??? Choose a carpet design that does not hide the edge of steps on the stairway. ??? Check any carpeting to make sure that it is firmly attached to the stairs. Fix any carpet that is loose or worn. What can I do on the outside of my home? Use bright outdoor lighting. ??? Regularly repair the edges of walkways and driveways and fix any cracks. ??? Remove high doorway thresholds. ??? Trim any shrubbery on the main path into your home. ??? Regularly check that handrails are securely fastened and in good repair. Both sides of any steps should have handrails. ??? Install guardrails along the edges of any raised decks or porches. ??? Clear walkways of debris and clutter, including tools and rocks. ??? Have leaves, snow, and ice cleared regularly. ??? Use sand or salt on walkways during winter months. ??? In the garage, clean up any spills right away, including grease or oil spills. What other actions can I take? Wear closed-toe shoes that fit well and support your feet. Wear shoes that have rubber soles or low heels. ??? Use mobility aids as needed, such as canes, walkers, scooters, and crutches. ??? Review your medicines with your health care provider. Some medicines can cause dizziness or changes in blood pressure, which increase your risk of falling. Talk with your health care provider about other ways that you can decrease your risk of falls. This may include working with a physical therapist or physical fitness trainer to improve your strength, balance, and endurance. Where to find more information ??? Centers for Disease Control and Prevention, [employer]: https://www.cdc.gov ??? National [place] on Aging: https://fu1hjke.shonna.nih.gov Contact a health care provider if: ??? You are afraid of falling at home. ??? You feel weak, drowsy, or dizzy at home. ??? You fall at home. Summary ??? There are many simple things that you can do to make your home safe and to help prevent falls. ??? Ways to make your home safe include removing tripping hazards and installing grab bars in the bathroom. ??? Ask for help when making these changes in your home. This information is not intended to replace advice given to you by your health care provider. Make sure you discuss any questions you have with your health care provider. Document Revised: 10/06/2018 Document Reviewed: 06/08/2018 [employer] Patient Education ?? 2020 [employer] Emergency Awareness and Preventative Care STROKE [...] Assistance with quitting is available by contacting 8-617-YMNT-NOW. This is a free resource providing counseling, [...] was given the opportunity to ask questions. Patient/Transportation Associate Name: Patient/Transportation Associate Signature: Relationship to Patient: Clinician/Hospital Transportation Associate Signature: Please Provide a Telephone Number Where You Can Be Reached: Is it Permissible To Leave a Message? Date: documented in this encounter Plan of Treatment Upcoming Encounters Date Type Department Care Team (Late st Contact Info) Description 01/15/2025 2:45 PM EDT Office Visit [place] [facility] - [address] [facility] [address] [place] [address] Jayla Ontiveros MD [address] [place] [id number] 09/19/2025 2:30 PM EST Appointment [facility] Breast [facility] [address] [place] [address] documented as of this encounter Visit Diagnoses Not on filedocumented in this encounter Care Teams Kettle Firer Relationship Specialty Start Date End Date Radha Méndez APRN PCP - General Primary Care 09/07/22 01/03/24 Suzanne Mora, [place] [address] [place] [address] PCP - General Family Medicine 01/04/24 Steven Marcelo MD [address] [place] [address] Surgeon General Surgery 09/07/22 Jayla Ontiveros MD [address] [facility] [address] [place] [address] Medical Oncologist Hematology and Oncology 09/07/22 Rory, Modesta Walsh RN Nurse Navigator 03/03/23 03/20/24 documented as of this encounter
--- OUTSIDE RECORDS SUMMARY | 2024-10-05 17:17 | XMS_ITS | Encounter Summary ---
Author Organization [employer] Address [address] [place] [address] Care Team Providers Care Rooming House Inspector Name Role Phone Komal Méndez APRN Primary Care Provider + [phone] Steven Marcelo MD Unavailable [phone] Jayla Ontiveros MD Unavailable [phone] Modesta Valadez RN Unavailable Unavailable Suzanne Mora APRN Primary Care Provider [phone] Encounter Details Date Type Department Care Team (Late st Contact Info) Description 08/19/2020 Transcribed Document [facility] Family Medicine [facility] [place] [address] ProviderNimisha MD [address] [place] [address] Social History Tobacco Use Types [...] Historical ProviderMD - 08/19/2020 9:31 AM CDT [facility] Endo PACU Summary Primary Physician: BLAKE JACOBSON MD-GAE Finalized Date/Time: 08/19/20 10:20:47 Pt. Name: RAMBO SHERON PABLO /Sex: 1950 Female Med Rec #: [id number] Physician: BLAKE JACOBSON MD-[facility] Financial #: [id number] Pt. Type: O Room/Bed: END/ Admit/Disch: 08/19/20 08:33:00 - Institution: [facility] Endo PACU Case Times Entry 1 In PACU I 08/19/20 09:50:00 Ready for PACU 08/19/20 10:20:00 Discharge Discharge from PACU 08/19/20 10:20:00 I Last Modified By: Lita Levy RN 08/19/20 10:20:44 [facility] Endo PACU Case Times Audit 08/19/20 10:20:44 Data Center Manager: [id number] Modifier: [id number] <+> 1 Ready for PACU Discharge <+> 1 Discharge from PACU I Finalized By: Lita Levy RN Document Signatures Signed By: Lita Levy RN 08/19/20 10:20 Electronically signed by L[facility] Conversion Securities Settlement Processor Cerner at 02/22/2023 11:57 AM CDT documented in this encounter Plan of Treatment Upcoming Encounters Date Type Department Care Team (Late st Contact Info) Description 01/15/2025 2:45 PM EDT Office Visit [place] [facility] - [facility] [address] [facility] [address] [place] [address] Jayla Ontiveros MD [address] [facility] [address] [place] [address] 09/19/2025 2:30 PM EST Appointment [facility] Breast [facility] [address] [facility] [address] [place] [address] documented as of this encounter Visit Diagnoses Not on filedocumented in this encounter Care Teams Rooming House Inspector Relationship Specialty Start Date End Date Komal Méndez APRN PCP - General Primary Care 09/07/22 01/03/24 Suzanne Mora APRN [address] [place] [address] PCP - General Family Medicine 01/04/24 Steven Marcelo MD [address] [facility] [address] [place] [address] Surgeon General Surgery 09/07/22 Jayla Ontiveros MD [address] [facility] [address] [place] [address] Medical Oncologist Hematology and Oncology 09/07/22 Rory, Modesta Walsh, RN Nurse Navigator 03/03/23 03/20/24 documented as of this encounter
--- OUTSIDE RECORDS SUMMARY | 2024-10-05 17:17 | XMS_ITS | Encounter Summary ---
Author Organization [employer] Address [address] [place] [address] Care Team Providers Care Medical Geneticist Name Role Phone Irene Méndezh Nick ROSS Primary Care Provider + [phone] Steven Marcelo MD Unavailable [phone] Jayla Ontiveros MD Unavailable [phone] Modesta Valadez RN Unavailable Unavailable Suzanne Mora APRN Primary Care Provider [phone] Encounter Details Date Type Department Care Team (Late st Contact Info) Description 06/18/2022 Transcribed Document [facility] Family Medicine [facility] [place] [address] ProviderNimisha MD [address] [place] [address] Social History Tobacco Use Types [...] Historical ProviderMD - 06/18/2022 9:42 AM CDT ED Assessment Entered On: 06/18/2022 10:30 EDT Performed On: 06/18/2022 10:29 EDT by Carlita Riddle, REST ROOM MATRON Quick Look Assessment Level of Consciousness : Alert, Awake Affect/Behavior : Appropriate, Calm, Cooperative Orientation : Oriented x 4 Skin Temperature : Warm Skin Description : Normal for ethnicity, [place] Carlita Riddle RN - 06/18/2022 10:29 EDT ED General-Functional Assess Information Obtained From : Patient Preferred Communication Mode : Verbal Communication Barrier : None Primary Language : Senegalese Any Spiritual/Cultural Needs or Requests : No Currently in Unsafe Situation : No Carlita Riddle RN - 06/18/2022 10:29 EDT Social Habits Smoking Status : Never (less than 100 in lifetime; none in last 30 days) Smokeless Tobacco Status : Never Desires Tobacco Cessation Calc : 0 Carlita Riddle RN - 06/18/2022 10:29 EDT Social History (As Of: 06/18/2022 10:30:16 EDT) Tobacco: Smoking Status Never smoker. (Last Updated: 11/04/2017 11:51:31 EST by MARISELA JULIO, RN) Alcohol: Alcohol Use History No. (Last Updated: 08/21/2018 21:01:58 EDT by JAIRON HUMPHRIES, RN) Substance Abuse: Drug Use Hx: No. Use in Last 12 Months: No. (Last Updated: 11/04/2017 11:51:34 EST by MARISELA JULIO, RN) Nutrition/Health: Caffeine intake amount: 4. (Last Updated: 01/01/2014 13:30:23 EST by BLAKE HERMAN, RN) Respiratory Respiratory Assessment WDL : WDL with exceptions Cough : Congested, Dry Carlita Riddle RN - 06/18/2022 10:29 EDT Electronically signed by Cristiane Pearson Conversion Swinging Cut Off Saw Operator Cerner at 02/22/2023 11:45 AM CDT documented in this encounter Plan of Treatment Upcoming Encounters Date Type Department Care Team (Late st Contact Info) Description 01/15/2025 2:45 PM EDT Office Visit [place] [facility] - David [facility] [address] [facility] [address] [place] [address] Jayla Ontiveros MD [address] [place] [address] 09/19/2025 2:30 PM EST Appointment [address] [place] [address] documented as of this encounter Visit Diagnoses Not on filedocumented in this encounter Care Teams Medical Geneticist Relationship Specialty Start Date End Date Komal MéndezCODY PCP - General Primary Care 09/07/22 01/03/24 Suzanne Mora, [place] [address] [facility] [address] [place] [address] PCP - General Family Medicine 01/04/24 Steven Marcelo MD [address] [facility] [address] [place] [address] Surgeon General Surgery 09/07/22 Jayla Ontiveros MD [address] [facility] [address] [place] [address] Medical Oncologist Hematology and Oncology 09/07/22 Rory, Modesta Walsh RN Nurse Navigator 03/03/23 03/20/24 documented as of this encounter
--- OUTSIDE RECORDS SUMMARY | 2024-10-05 17:17 | XMS_ITS | Encounter Summary ---
Author Organization [employer] Address [address] [place] [address] Care Team Providers Care Chief Technician X Ray Name Role Phone Irene Méndezh Nick ROSS Primary Care Provider + [phone] Steven Marcelo MD Unavailable [phone] Jayla Ontiveros MD Unavailable [phone] Modesta Valadez RN Unavailable Unavailable Suzanne Mora APRN Primary Care Provider [phone] Encounter Details Date Type Department Care Team (Late st Contact Info) Description 04/29/2022 Transcribed Document [facility] Family Medicine [facility] [place] [address] ProviderNimisha MD [address] [place] [address] Social History Tobacco Use Types [...] Historical ProviderMD - 04/29/2022 7:00 PM CDT ED Assessment Entered On: 04/29/2022 20:28 EDT Performed On: 04/29/2022 20:26 EDT by ABBIE HINOJOSA, COUNSELING CENTER DIRECTOR Quick Look Assessment Level of Consciousness : Alert, Awake Affect/Behavior : Appropriate, Calm, Cooperative Orientation : Oriented x 4 Skin Temperature : Warm Skin Description : Dry, [place] ABBIE HINOJOSA RN - 04/29/2022 20:26 EDT ED General-Functional Assess Information Obtained From : Patient Preferred Communication Mode : Verbal Communication Barrier : None Primary Language : Citizen [place] Any Spiritual/Cultural Needs or Requests : No Currently in Unsafe Situation : No ABBIE HINOJOSA RN - 04/29/2022 20:26 EDT Social Habits Smoking Status : Never (less than 100 in lifetime; none in last 30 days) Smokeless Tobacco Status : Never Desires Tobacco Cessation Calc : 0 ABBIE HINOJOSA RN - 04/29/2022 20:26 EDT Social History (As Of: 04/29/2022 20:28:16 EDT) Tobacco: Smoking Status Never smoker. (Last Updated: 11/04/2017 11:51:31 EST by MARISELA JULIO, RN) Alcohol: Alcohol Use History No. (Last Updated: 08/21/2018 21:01:58 EDT by JAIRON HUMPHRIES, RN) Substance Abuse: Drug Use Hx: No. Use in Last 12 Months: No. (Last Updated: 11/04/2017 11:51:34 EST by MARISELA JULIO, RN) Nutrition/Health: Caffeine intake amount: 4. (Last Updated: 01/01/2014 13:30:23 EST by BLAKE HERMAN RN) Respiratory Respiratory Assessment WDL : WDL Respiratory Pattern Description : Regular ABBIE HINOJOSA RN - 04/29/2022 20:26 EDT Musculoskeletal Musculoskeletal Assessment WDL : WDL with exceptions Musculoskeletal Assessment Comment : Pt c/o right knee pain and left shoulder pain s/p fall this afternoon. Slight brusing, no swelling noted to right knee. No brusing or swelling of left shoulder noted. ABBIE HINOJOSA RN - 04/29/2022 20:26 EDT Neurologic ASMT, ED Neurologic Assessment WDL : WDL ABBIE HINOJOSA RN - 04/29/2022 20:26 EDT documented in this encounter Plan of Treatment Upcoming Encounters Date Type Department Care Team (Late st Contact Info) Description 01/15/2025 2:45 PM EDT Office Visit [place] [facility] - [place] [address] [place] [address] Jayla Ontiveros MD [address] [facility] [address] [place], [place] [id number] 09/19/2025 2:30 PM EST Appointment [facility] [address] [facility] [address] [place] [address] documented as of this encounter Visit Diagnoses Not on filedocumented in this encounter Care Teams Chief Technician X Ray Relationship Specialty Start Date End Date Komal Méndez, MEMBERSHIP CORRESPONDENT PCP - General Primary Care 09/07/22 01/03/24 Suzanne Mora, MEMBERSHIP CORRESPONDENT [address] [place] [address] PCP - General Family Medicine 01/04/24 Steven Marcelo MD [address] [facility] [address] [place] [address] Surgeon General Surgery 09/07/22 Jayla Ontiveros MD [address] [facility] [address] [place], [place] [address] Medical Oncologist Hematology and Oncology 09/07/22 Rory, Modesta Walsh, RN Nurse Navigator 03/03/23 03/20/24 documented as of this encounter
--- OUTSIDE RECORDS SUMMARY | 2024-10-05 17:17 | XMS_ITS | Encounter Summary ---
Author Organization [employer] Address [address] [place] [address] Care Team Providers Care Extension Specialist Name Role Phone Komal Méndez APRN Primary Care Provider + [phone] Steven Marcelo MD Unavailable [phone] Jayla Ontiveros MD Unavailable [phone] Modesta Valadez RN Unavailable Unavailable Suzanne Mora APRN Primary Care Provider [phone] Encounter Details Date Type Department Care Team (Late st Contact Info) Description 04/29/2022 Transcribed Document [facility] Family Medicine [address] [place] [address] ProviderNimisha MD [address] [place] [address] Social History Tobacco Use Types Packs/Day Years Used Date Smoking Tobacco: Never Assessed Comments Unknown Sex and Gender Information Value Date Recorded Sex Assigned at Not on file Legal Sex Female 4:30 PM CDT Gender Identity Not on file Sexual Orientation Not on file documented as of this encounter Miscellaneous Notes * Cerner Conversion Note - Nimisha ProviderMD - 04/29/2022 8:07 PM CDT Pain Assessment Entered On: 04/29/2022 21:59 EDT Performed On: 04/29/2022 21:23 EDT by ABBIE HINOJOSA, RN Intervention Information: acetaminophen-HYDROcodone Performed by ABBIE HINOJOSA, RN on 04/29/2022 20:23:00 EDT acetaminophen-HYDROcodone,1Tab Oral Pain Assessment Pain Assessment : Follow-up assessment Pain Scale Used : 0-10 Scale ABBIE HINOJOSA RN - 04/29/2022 21:59 EDT Pain Scale Intensity : 4 ABBIE HINOJOSA RN - 04/29/2022 21:59 EDT Image 4 - Images currently included in the form version of this document have not been included in the text rendition version of the form. Electronically signed by Cristiane Pearson Conversion Sprinkling System Irrigator Cerner at 02/22/2023 12:09 PM CDT documented in this encounter Plan of Treatment Upcoming Encounters Date Type Department Care Team (Late st Contact Info) Description 01/15/2025 2:45 PM EDT Office Visit [place] [facility] - [place] [address] [facility] [address] [place] [address] Jayla Ontiveros MD [address] [facility] [address] [place] [address] 09/19/2025 2:30 PM EST Appointment [facility] Breast [facility] [address] [facility] [address] [place] [address] documented as of this encounter Visit Diagnoses Not on filedocumented in this encounter Care Teams Extension Specialist Relationship Specialty Start Date End Date Komal Méndez APRN PCP - General Primary Care 09/07/22 01/03/24 Suzanne Mora, REHAB SPECIALIST [address] [place] [address] PCP - General Family Medicine 01/04/24 Steven Marcelo MD [address] [facility] [address] [place] [address] Surgeon General Surgery 09/07/22 Jayla Ontiveros MD [address] [place] [address] Medical Oncologist Hematology and Oncology 09/07/22 Rory, Modesta Walsh RN Nurse Navigator 03/03/23 03/20/24 documented as of this encounter
--- OUTSIDE RECORDS SUMMARY | 2024-10-05 17:17 | XMS_ITS | Encounter Summary ---
Author Organization [employer] Address [address] [place] [address] Care Team Providers Care Audio Visual Technician Name Role Phone Komal Méndez APRN Primary Care Provider + [phone] Steven Marcelo MD Unavailable [phone] Jayla Ontiveros MD Unavailable [phone] Modesta Valadez RN Unavailable Unavailable Suzanne Mora APRN Primary Care Provider [phone] Encounter Details Date Type Department Care Team (Late st Contact Info) Description 04/29/2022 Transcribed Document [facility] [place] [address] [place] [address] ProviderNimisha MD [address] [place] [address] Social History Tobacco Use Types [...] ProviderMD - 04/29/2022 7:00 PM CDT ED Triage Entered On: 04/29/2022 19:35 EDT Performed On: 04/29/2022 19:32 EDT by MILY HENDRIX, RECEIVING OPERATOR Triage Across the Room Chief Complaint : patient staes she fell over babygate. patient is nausead . complaining of pain in left shoulder and right knee Triage Date/Time : 04/29/2022 19:32 EDT MILY HENDRIX RN - 04/29/2022 19:32 EDT DCP GENERIC CODE Tracking Acuity : 3 - Urgent Tracking Group : [facility] MILY HENDRIX RN - 04/29/2022 19:32 EDT Mode of Arrival : Ambulatory Transported to ED by : Private vehicle To Room Via : Wheelchair Accompanied By : Daughter ED Vital Signs : Document Height & Weight : Document ED Allergies : Document ED Reason for Visit : Document Tetanus Immunization : Unknown MILY HENDRIX RN - 04/29/2022 19:32 EDT Infectious Disease History Does patient have symptoms of COVID-19? : No Tested for COVID19 in the past 14 days : No, Patient stated Does the Patient state known exposure to a COVID-19 positive case in the last 14 days? : No Patient Vaccinated for COVID-19 : Fully vaccinated MILY HENDRIX RN - 04/29/2022 19:32 EDT Infectious Disease Risk Screening Grid Cough < 2 wks of unknown origin : NO Cough > 2 weeks : NO Blood in Sputum : NO Fever or self-reported Fever : NO Rash of unknown origin : NO Headache : NO Stiff neck : NO Night Sweats : NO Unexplained Weight Loss : NO Diarrhea (3 episode per day) : NO MILY HENDRIX RN - 04/29/2022 19:32 EDT Physical contact outside [place] in the last 30 days : No Hospitalized in Foreign Country : No Infectious Disease History : Chicken pox/Shingles, Influenza, Measles, Mumps INF Disease TB Screening Calc : 0 INF Disease Recent Travel Calc : 0 MILY HENDRIX RN - 04/29/2022 19:32 EDT Vital Signs ED Temperature Source : Oral Temperature Mode : Fahrenheit Temperature, Fahrenheit : 98.2 Deg F ED Pain : Yes Clinical Temperature, C : 36.8 Deg C Oxygen Therapy Mode : Room air Peripheral Pulse Rate : 61 bpm Respiratory Rate : 18 Breaths/Min Blood Pressure Location : Arm, left upper Blood Pressure Source : Non-Invasive BP Device Systolic Blood Pressure : 152 mmHg (HI) Diastolic Blood Pressure : 69 mmHg Oxygen Saturation : 99 % MILY HENDRIX RN - 04/29/2022 19:32 EDT Allergy (As Of: 04/29/2022 19:35:23 EDT) Allergies (Active) No Known Medication Allergies Estimated Onset Date: Unspecified ; Created By: JAIRON HUMPHRIES RN; Reaction Status: Active ; Category: Drug ; Substance: No Known Medication Allergies ; Type: Allergy ; Updated By: JAIRON HUMPHRIES RN; Reviewed Date: 04/29/2022 19:34 EDT Diagnosis Control ED (As Of: 04/29/2022 19:35:23 EDT) Problems(Active) At risk for sleep apnea (IMO :19069443 ) Name of Problem: At risk for sleep apnea ; Recorder: SYSTEM, SYSTEM; Confirmation: Confirmed ; Classification: Medical ; Code: [id number] ; Last Updated: 03/19/2019 11:40 EDT ; Life Cycle Date: 03/19/2019 ; Life Cycle Status: Active ; Vocabulary: IMO Atrial fibrillation (SNOMED CT :49074888 ) Name of Problem: Atrial fibrillation ; Recorder: MARISELA JULIO RN; Confirmation: Confirmed ; Classification: Medical ; Code: [id number] ; Contributor System: [employer] ; Last Updated: 11/04/2017 11:49 EST ; Life Cycle Date: 11/04/2017 ; Life Cycle Status: Active ; Vocabulary: SNOMED CT High blood pressure (SNOMED CT :88880801 ) Name of Problem: High blood pressure ; Recorder: BLAKE HERMAN RN; Confirmation: Confirmed ; Classification: Medical ; Code: [id number] ; Contributor System: [employer] Manufacturing GroupChart ; Last Updated: 04/18/2014 19:26 EDT ; Life Cycle Date: 01/01/2014 ; Life Cycle Status: Active ; Vocabulary: SNOMED CT Kidney disease (SNOMED CT :775833585 ) Name of Problem: Kidney disease ; Recorder: MARISELA JULIO RN; Confirmation: Confirmed ; Classification: Medical ; Code: [id number] ; Contributor System: [employer] GroupChart ; Last Updated: 11/04/2017 11:50 EST ; Life Cycle Date: 11/04/2017 ; Life Cycle Status: Active ; Vocabulary: SNOMED CT Diagnoses(Active) Fall Date: 04/29/2022 ; Diagnosis Type: Reason For Visit ; Confirmation: Complaint of ; Clinical Dx: Fall ; Classification: Medical ; Clinical Service: Emergency medicine ; Code: PNED ; Probability: 0 ; Diagnosis Code: [id number] ED Height and Weight Height Source : Stated Height Entry Format : [place] Height, Feet : 5 ft(Converted to: 152 cm, 60 Inch) Height, Inches : 7 Inch(Converted to: 0 ft 7 Inch, 17.78 cm) Clinical Height : 170.18 cm Weight Source, ED : Standing scale Weight Entry Format : [place] Weight, Pounds : 140.5 lb Clinical Dosing Weight : 63.86 kg Body Surface Area (BSA) : 1.74 m2 Body Mass Index : 22.1 kg/m2 [place] Body Weight (IBW) : 61.16 kg MILY HENDRIX RN - 04/29/2022 19:32 EDT Pain Assessment Pain Assessment : Initial assessment Pain Scale Used : 0-10 Scale MILY HENDRIX RN - 04/29/2022 19:32 EDT Pain Scale Intensity : 10 MILY HENDRIX RN - 04/29/2022 19:32 EDT Image 4 - Images currently included in the form version of this document have not been included in the text rendition version of the form. ED Influenza/Pneumoccocal Vaccine Influenza Immunization, Current Season : Yes Previous Vaccines from Immunization Schedule : No qualifying data available. MILY HENDRIX RN - 04/29/2022 19:32 EDT documented in this encounter Plan of Treatment Upcoming Encounters Date Type Department Care Team (Late st Contact Info) Description 01/15/2025 2:45 PM EDT Office Visit [place] [facility] - [address] [facility] [address] [place] [address] Jayla Ontiveros MD [address] [place] [address] 09/19/2025 2:30 PM EST Appointment [facility] Breast [address] [place] [address] documented as of this encounter Visit Diagnoses Not on filedocumented in this encounter Care Teams Audio Visual Technician Relationship Specialty Start Date End Date Komal Méndez, ENGINEERING PROJECT DESIGNER PCP - General Primary Care 09/07/22 01/03/24 Suzanne Mora APRN [address] [facility] [facility] [address] [place] [address] PCP - General Family Medicine 01/04/24 Steven Marcelo MD [address] [facility] [address] [place] [address] Surgeon General Surgery 09/07/22 Jayla Ontiveros MD [address] [facility] [address] [place] [address] Medical Oncologist Hematology and Oncology 09/07/22 Modesta Valadez RN Nurse Navigator 03/03/23 03/20/24 documented as of this encounter
--- OUTSIDE RECORDS SUMMARY | 2024-10-05 17:17 | XMS_ITS | Encounter Summary ---
Author Organization [employer] In [employer] Address [address] [place] [address] Care Team Providers Care Machine Operator Replanter Name Role Phone Komal Méndez APRN Primary Care Provider + [phone] Steven Marcelo MD Unavailable [phone] Jayla Ontiveros MD Unavailable [phone] Modesta Valadez RN Unavailable Unavailable Suzanne Mora APRN Primary Care Provider [phone] Encounter Details Date Type Department Care Team (Late st Contact Info) Description 04/30/2022 Transcribed Document [facility] [place] Family Medicine [address] [place] [address] ProviderNimisha MD [address] [place] [address] Social History Tobacco Use Types Packs/Day Years Used Date Smoking Tobacco: Never Assessed Comments Unknown Sex and Gender Information Value Date Recorded Sex Assigned at Not on file Legal Sex Female 4:30 PM CDT Gender Identity Not on file Sexual Orientation Not on file documented as of this encounter Miscellaneous Notes * Cerner Conversion Note - Historical ProviderMD - 04/30/2022 11:04 AM CDT CR Shoulder Comp Min 2 Vws LT Ordered: 04/29/2022 Auth (Verified) Reason for Exam: fall04/29/2022 22:56 CR Knee 3 Vws RT Ordered: 04/29/2022 Auth (Verified) Reason for Exam: fall04/29/2022 22:56 CR Clavicle LT Ordered: 04/29/2022 Auth (Verified) Reason for Exam: fall04/29/2022 22:56 04/30/2022 11:04 (DEEP ZAMARRIPA) No further action required documented in this encounter Plan of Treatment Upcoming Encounters Date Type Department Care Team (Late st Contact Info) Description 01/15/2025 2:45 PM EDT Office Visit [facility] [place] [address] [place] [address] Jayla Ontiveros MD [address] [facility] [address] [place], [place] [address] 09/19/2025 2:30 PM EST Appointment [facility] [address] [place] [address] documented as of this encounter Visit Diagnoses Not on filedocumented in this encounter Care Teams Machine Operator Replanter Relationship Specialty Start Date End Date Komal Méndez, COMMERCIAL ARTIST LETTERING PCP - General Primary Care 09/07/22 01/03/24 Suzanne Mora, CODY [address] [place] [address] PCP - General Family Medicine 01/04/24 Steven Marcelo MD [address] [place] [address] Surgeon General Surgery 09/07/22 Jayla Ontievros MD [address] [facility] [address] [place] [address] Medical Oncologist Hematology and Oncology 09/07/22 Modesta Valadez RN Nurse Navigator 03/03/23 03/20/24 documented as of this encounter
--- OUTSIDE RECORDS SUMMARY | 2024-10-05 17:17 | XMS_ITS | Encounter Summary ---
Author Organization [employer] Address [address] [place] [address] Care Team Providers Care Veterinary Medicine Scientist Name Role Phone Irene Méndezh Nick ROSS Primary Care Provider + [phone] Steven Marcelo MD Unavailable [phone] Jayla Ontiveros MD Unavailable [phone] Modesta Valadez RN Unavailable Unavailable Suzanne Mora APRN Primary Care Provider [phone] Encounter Details Date Type Department Care Team (Late st Contact Info) Description 08/19/2020 Transcribed Document [facility] [place] Family Medicine [address] [place] [address] ProviderNimisha MD [address] [place] [address] Social History Tobacco Use Types Packs/Day Years Used Date Smoking Tobacco: Never Assessed Comments Unknown Sex and Gender Information Value Date Recorded Sex Assigned at Not on file Legal Sex Female 4:30 PM CDT Gender Identity Not on file Sexual Orientation Not on file documented as of this encounter Miscellaneous Notes * Cerner Conversion Note - Historical ProviderMD - 08/19/2020 8:53 AM CDT Pre Procedure Adult Entered On: 08/19/2020 8:57 EDT Performed On: 08/19/2020 8:53 EDT by Modesta Martinez RN Height and Weight, Clinical Dosing Height Source : Stated Height Entry Format : [place]ance Height, Feet : 5 ft(Converted to: 152 cm, 60 Inch) Height, Inches : 6 Inch(Converted to: 0 ft 6 Inch, 15.24 cm) Clinical Height : 167.64 cm Weight Source : Standing scale Weight Entry Format : [place] Clinical Dosing Weight : 63.64 kg Weight, Pounds : 140 lb Body Surface Area (BSA) : 1.72 m2 Body Mass Index : 22.6 kg/m2 [place] Body Weight : 59 kg Modesta Martinez RN - 08/19/2020 8:53 EDT Health Histories Smoking Status : Never (less than 100 in lifetime; none in last 30 days) Smokeless Tobacco Status : Never Modesta Martinez RN - 08/19/2020 8:53 EDT Social History (As Of: 08/19/2020 08:57:11 EDT) Tobacco: Smoking Status Never smoker. (Last [...] 01/01/2014 13:30:23 EST by BLAKE HERMAN RN) Infectious Disease History Has the patient ever been tested for COVID-19? : Yes, Patient stated results Negative Date of COVID-19 test known? : Yes Does patient have symptoms of COVID-19? : No COVID19 Screening : No Experiencing Infectious Disease Symptoms : No symptoms Physical contact outside [place] in the last 30 days : No Infectious Disease History : Influenza, Measles, Mumps Tuberculosis Symptoms : None Modesta Martinez RN - 08/19/2020 8:53 EDT COVID19 PreProcedure Screening Is this an Emergent or Add on Procedure? : No Has patient been isolated since the test : Yes Exposed to COVID19 symptoms since test? : No Modesta Martinez RN - 08/19/2020 8:53 EDT Anesthesia/Transfusion History Family History of Anesthesia Reaction : No prior transfusion(s) Transfusion History : Prior anesthesia without reaction Family History of Anesthesia Reaction : None Modesta Martinez RN - 08/19/2020 8:53 EDT Functional Assessment Living Situation : Home Current Home Treatments : None Modesta Martinez RN - 08/19/2020 8:53 EDT Sebastian Suicide Severity Rating Scale (C-SSRS) CSSRS Past Month Wish to be : No CSSRS Past Month Suicidal Thoughts : No CSSRS Lifetime Suicide Behavior : No Suicide Severity Rating Score : 0 Suicide Severity Rating : No Additional Care Required at this time Modesta Martinez RN - 08/19/2020 8:53 EDT Psychosocial History Currently in Unsafe Situation : No Modesta Martinez RN - 08/19/2020 8:53 EDT Advance Directive Patient has Advance Directive *Q : No, patient refuses Advance Directive information Modesta Martinez RN - 08/19/2020 8:53 EDT General Info Support Person/Patient Security Risk Analyst : Yes Support Person/Pt Rep Name : lilly Diaz Support Person/Pt Rep Contact Information : [phone] Want Family/Rep/Phys Notified of Admit : No Emergency Contact #1 : leander Emergency Contact #1 Phone Number : [phone] Emergency Contact #1 Relationship : child Emergency Contact #2 : Emergency Contact #2 Phone Number : Emergency Contact #2 Relationship : Primary Language : Ethiopian Preferred Communication Mode : Verbal Communication Barrier : None Shaker Washer Needed : No Modesta Martinez RN - 08/19/2020 8:53 EDT Sleep Apnea Risk Assmt Hx of Obstructive Sleep Apnea Diagnosis : No Snore Loudly : No Tired, Fatigued, or Sleepy During Day : No Observed Stopping Breathing During Sleep : No Have/Are Being Treated for Hypertension : Yes BMI Greater Than 35 kg/m2 : No Age over 50 Years Old : Yes Neck Circumference Greater Than 40 cm : No Gender Male : No STOP-BANG Sleep Apnea Risk Level Score : 2 Modesta Martinez RN - 08/19/2020 8:53 EDT Phillip Scale Phillip Sensory Perception : No impairment Phillip Moisture : Rarely moist Phillip Activity : Walks frequently Phillip Mobility : No limitation Phillip Nutrition : Excellent Phillip Friction and Shear : No apparent problem Phillip Score : 23 Modesta Martinez RN - 08/19/2020 8:53 EDT Fall Risk Scales ABCs Fall Injury Risk Identification : None HADDAD Hx Falls Immediate/Within 3 Months : No Haddad Secondary Diagnosis : No HADDAD Use of Ambulatory Aid : None HADDAD IV Therapy or IV Access : Yes Haddad Gait/Transferring : Normal, bedrest, immobile Haddad Mental Status : Oriented to own ability Haddad Fall Risk Score : 20 HADDAD Fall Scale Risk Level : 0-24 Low Risk [place] Fall Interventions : Adequate lighting, Non-slip footwear, Wires/Cords secured Modesta Martinez RN - 08/19/2020 8:53 EDT Valuables and Belongings Valuables and Belongings : Clothing Clothing : Common streetwear Clothing Disposition : Bedside Modesta Martinez RN - 08/19/2020 8:53 EDT documented in this encounter Plan of Treatment Upcoming Encounters Date Type Department Care Team (Late st Contact Info) Description 01/15/2025 2:45 PM EDT Office Visit [facility] - [place] [address] [address] [facility] [address] [place] [address] Jayla Ontiveros MD [facility] [address] [place], [place] [address] 09/19/2025 2:30 PM EST Appointment [facility] [address] [address] [place] [address] documented as of this encounter Visit Diagnoses Not on filedocumented in this encounter Care Teams Veterinary Medicine Scientist Relationship Specialty Start Date End Date Komal Méndez APRN PCP - General Primary Care 09/07/22 01/03/24 Suzanne Mora, CODY [address] [place] [address] PCP - General Family Medicine 01/04/24 Steven Marcelo MD [address] [facility] [address] [place] [address] Surgeon General Surgery 09/07/22 Jayla Ontiveros MD [address] [place] [id number] Medical Oncologist Hematology and Oncology 09/07/22 Modesta Valadez RN Nurse Navigator 03/03/23 03/20/24 documented as of this encounter
--- OUTSIDE RECORDS SUMMARY | 2024-10-05 17:17 | XMS_ITS | Encounter Summary ---
Author Organization [employer] Address [address] [place] [address] [address] Care [address] Change Roof Bolter Name Role Phone Komal Méndez APRN Primary Care Provider + [phone] Steven Marcelo MD Unavailable [phone] Jayla Ontiveros MD Unavailable [phone] Modesta Valadez RN Unavailable Unavailable Suzanne Mora APRN Primary Care Provider [phone] Encounter Details Date Type Department Care Team (Late st Contact Info) Description 08/19/2020 Transcribed Document [facility] [place] Family Medicine [place] [address] ProviderNimisha MD [address] [place] [address] Social History Tobacco Use Types Packs/Day Years Used Date Smoking Tobacco: Never Assessed Comments Unknown Sex and Gender Information Value Date Recorded Sex Assigned at Not on file Legal Sex Female 4:30 PM CDT Gender Identity Not on file Sexual Orientation Not on file documented as of this encounter Miscellaneous Notes * Cerner Conversion Note - Historical ProviderMD - 08/19/2020 9:00 AM CDT [facility] Endo PreOp Summary Primary Physician: BLAKE JACOBSON MD-GAE Finalized Date/Time: 08/19/20 09:12:44 Pt. Name: SHERON CARVAJAL DAYLIN /Sex: 1950 Female Med Rec #: [id number] Physician: BLAKE JACOBSON MD-[facility] Financial #: [id number] Pt. Type: O Room/Bed: END/ Admit/Disch: 08/19/20 08:33:00 - Institution: [facility] PreOp Case Times Entry 1 In Preop 08/19/20 08:50:00 Ready for Holding n/a Room Patient Ready for n/a Surgery Patient Out of Preop 08/19/20 09:11:00 Patient Out of n/a Holding Room Last Modified By: Modesta Martinez RN 08/19/20 09:12:42 Finalized By: Modesta Martinez, RN Document Signatures Signed By: Modesta Martinez RN 08/19/20 09:12 documented in this encounter Plan of Treatment Upcoming Encounters Date Type Department Care Team (Late st Contact Info) Description 01/15/2025 2:45 PM EDT Office Visit [facility] - [place] [address] [facility] [address] [place] [phone] Jayla Ontiveros MD [address] [facility] [address] [place] [address] 09/19/2025 2:30 PM EST Appointment [facility] [address] [facility] [address] [place] [address] documented as of this encounter Visit Diagnoses Not on filedocumented in this encounter Care Teams Place Change Roof Bolter Relationship Specialty Start Date End Date Komal Méndez APRN PCP - General Primary Care 09/07/22 01/03/24 Suzanne Mora APRN [address] [place] [address] PCP - General Family Medicine 01/04/24 Steven Marcelo MD [address] [place] [address] Surgeon General Surgery 09/07/22 Jayla Ontiveros MD [address] [facility] [address] [place] [address] Medical Oncologist Hematology and Oncology 09/07/22 Rory, Modesta Walsh RN Nurse Navigator 03/03/23 03/20/24 documented as of this encounter
--- OUTSIDE RECORDS SUMMARY | 2024-10-05 17:17 | XMS_ITS | Encounter Summary ---
Author Organization [employer] Address [address] [place] [address] Care Team Providers Care Hot Baller Name Role Phone Komal Méndez APRN Primary Care Provider + [phone] Steven Marcelo MD Unavailable [phone] Jayla Ontiveros MD Unavailable [phone] Modesta Valadez RN Unavailable Unavailable Suzanne Mora APRN Primary Care Provider [phone] Encounter Details Date Type Department Care Team (Late st Contact Info) Description 06/18/2022 Transcribed Document [facility] Family Medicine [address] [place] [address] ProviderNimisha MD [address] [place] [address] Social History Tobacco Use Types [...] ProviderMD - 06/18/2022 9:42 AM CDT ED Triage Entered On: 06/18/2022 10:12 EDT Performed On: 06/18/2022 10:10 EDT by JENI SHANNON RN ED Triage Across the Room Chief Complaint : PtC/o sore throat, cough and chest congestion that began 2 days ago Triage Date/Time : 06/18/2022 10:10 EDT JENI SHANNON, RN - 06/18/2022 10:10 EDT DCP GENERIC CODE Tracking Acuity : 4 - Non - Urgent Tracking Group : [facility] JENI SHANNON, JUDY - 06/18/2022 10:10 EDT Mode of Arrival : Ambulatory Transported to ED by : Private vehicle To Room Via : Ambulate Accompanied By : Unaccompanied ED Vital Signs : Document Height & Weight : Document ED Allergies : Document ED Reason for Visit : Document Tetanus Immunization : Unknown JENI SHANNON, JUDY - 06/18/2022 10:10 EDT Infectious Disease History Does patient have symptoms of COVID-19? : No Tested for COVID19 in the past 14 days : No, Patient stated Does the Patient state known exposure to a COVID-19 positive case in the last 14 days? : No Patient Vaccinated for COVID-19 : Fully vaccinated JENI SHANNON, JUDY - 06/18/2022 10:10 EDT Infectious Disease Risk Screening Grid Cough < 2 wks of unknown origin : NO Cough > 2 weeks : NO Blood in Sputum : NO Fever or self-reported Fever : NO Rash of unknown origin : NO Headache : NO Stiff neck : NO Night Sweats : NO Unexplained Weight Loss : NO Diarrhea (3 episode per day) : NO EJNI SHANNONJUDY - 06/18/2022 10:10 EDT Physical contact outside [place] in the last 30 days : No Hospitalized in Foreign Country : No Infectious Disease History : Chicken pox/Shingles, Influenza, Measles, Mumps INF Disease TB Screening Calc : 0 INF Disease Recent Travel Calc : 0 JENI SHANNON, RN - 06/18/2022 10:10 EDT Vital Signs ED Temperature Source : Temporal artery scanning Temperature Mode : Fahrenheit Temperature, Fahrenheit : 97.5 Deg F Clinical Temperature, C : 36.4 Deg C Oxygen Therapy Mode : Room air Peripheral Pulse Rate : 80 bpm Respiratory Rate : 16 Breaths/Min Systolic Blood Pressure : 124 mmHg Diastolic Blood Pressure : 74 mmHg Oxygen Saturation : 97 % JENI SHANNON, RN - 06/18/2022 10:10 EDT Allergy (As Of: 06/18/2022 10:12:25 EDT) Allergies (Active) No Known Medication Allergies Estimated Onset Date: Unspecified ; Created By: JAIRON HUMPHRIES RN; Reaction Status: Active ; Category: Drug ; Substance: No Known Medication Allergies ; Type: Allergy ; Updated By: JAIRON HUMPHRIES RN; Reviewed Date: 06/18/2022 10:11 EDT Diagnosis Control ED (As Of: 06/18/2022 10:12:25 EDT) Problems(Active) At risk for sleep apnea (IMO :56317058 ) Name of Problem: At risk for sleep apnea ; Recorder: SYSTEM, SYSTEM; Confirmation: Confirmed ; Classification: Medical ; Code: [id number] ; Last Updated: 03/19/2019 11:40 EDT ; Life Cycle Date: 03/19/2019 ; Life Cycle Status: Active ; Vocabulary: IMO Atrial fibrillation (SNOMED CT :32153536 ) Name of Problem: Atrial fibrillation ; Recorder: MARISELA JULIO RN; Confirmation: Confirmed ; Classification: Medical ; Code: [id number] ; Contributor System: REAL SAMURAI ; Last Updated: 11/04/2017 11:49 EST ; Life Cycle Date: 11/04/2017 ; Life Cycle Status: Active ; Vocabulary: SNOMED CT High blood pressure (SNOMED CT :24165002 ) Name of Problem: High blood pressure ; Recorder: BLAKE HERMAN RN; Confirmation: Confirmed ; Classification: Medical ; Code: [id number] ; Contributor System: REAL SAMURAI ; Last Updated: 04/18/2014 19:26 EDT ; Life Cycle Date: 01/01/2014 ; Life Cycle Status: Active ; Vocabulary: SNOMED CT Kidney disease (SNOMED CT :229487445 ) Name of Problem: Kidney disease ; Recorder: MARISELA JULIO RN; Confirmation: Confirmed ; Classification: Medical ; Code: [id number] ; Contributor System: [employer] ; Last Updated: 11/04/2017 11:50 EST ; Life Cycle Date: 11/04/2017 ; Life Cycle Status: Active ; Vocabulary: SNOMED CT Diagnoses(Active) Cough Date: 06/18/2022 ; Diagnosis Type: Reason For Visit ; Confirmation: Complaint of ; Clinical Dx: Cough ; Classification: Medical ; Clinical Service: Emergency medicine ; Code: PNED ; Probability: 0 ; Diagnosis Code: [id number] ED Height and Weight Height Source : Estimated Height Entry Format : [place] Height, Feet : 5 ft(Converted to: 152 cm, 60 Inch) Height, Inches : 7 Inch(Converted to: 0 ft 7 Inch, 17.78 cm) Clinical Height : 170.18 cm Weight Source, ED : Critical estimated dosing weight Weight Entry Format : [place] Weight, Pounds : 129 lb Clinical Dosing Weight : 58.64 kg Body Surface Area (BSA) : 1.68 m2 Body Mass Index : 20.2 kg/m2 [place] Body Weight (IBW) : 61.16 kg JENI SHANNON RN - 06/18/2022 10:10 EDT documented in this encounter Plan of Treatment Upcoming Encounters Date Type Department Care Team (Late st Contact Info) Description 01/15/2025 2:45 PM EDT Office Visit [facility] - [place] [id number] [facility] [address] [place] [address] Jayla Ontiveros MD [address] [facility] [address] [place] [address] 09/19/2025 2:30 PM EST Appointment [facility] [address] [facility] [address] [place] [address] documented as of this encounter Visit Diagnoses Not on filedocumented in this encounter Care Teams Hot Baller Relationship Specialty Start Date End Date Komal Méndez APRN PCP - General Primary Care 09/07/22 01/03/24 Suzanne Mora, STATE GAME PROTECTOR [address] [place] [address] PCP - General Family Medicine 01/04/24 Steven Marcelo MD [address] [facility] [address] [place] [address] Surgeon General Surgery 09/07/22 Jayla Ontiveros MD [address] [facility] [address] [place] [address] Medical Oncologist Hematology and Oncology 09/07/22 Rory, Modesta Walsh RN Nurse Navigator 03/03/23 03/20/24 documented as of this encounter
--- OUTSIDE RECORDS SUMMARY | 2024-10-05 17:17 | XMS_ITS | Encounter Summary ---
Author Organization [employer] Address [address] [place] [address] Care Team Providers Care Package Line Operator Name Role Phone Irene Méndezh Nick ROSS Primary Care Provider + [phone] Steven Marcelo MD Unavailable [phone] Jayla Ontiveros MD Unavailable [phone] Modesta Valadez RN Unavailable Unavailable Suzanne Mora APRN Primary Care Provider [phone] Encounter Details Date Type Department Care Team (Late st Contact Info) Description 04/29/2022 Transcribed Document [facility] [place] Family Medicine [facility] [place] [address] ProviderNimisha MD [address] [place] [address] Social History Tobacco Use Types [...] Historical ProviderMD - 04/29/2022 7:00 PM CDT Broset Violence Assessment Entered On: 04/29/2022 20:28 EDT Performed On: 04/29/2022 20:26 EDT by ABBIE HINOJOSA RN Broset Violence Assessment Broset Violence Checklist of Symptoms : None Broset Violence Symptoms Subtotal : 0 Broset Violence Symptoms Indicator : Low risk (0) Broset Interventions : Arma precautions for safety used ABBIE HINOJOSA RN - 04/29/2022 20:26 EDT documented in this encounter Plan of Treatment Upcoming Encounters Date Type Department Care Team (Late st Contact Info) Description 01/15/2025 2:45 PM EDT Office Visit [facility] - [place] [address] [place] [phone] Jayla Ontiveros MD [address] [place], [place] [id number] 09/19/2025 2:30 PM EST Appointment [facility] [address] [place] [address] documented as of this encounter Visit Diagnoses Not on filedocumented in this encounter Care Teams Package Line Operator Relationship Specialty Start Date End Date Komal Méndez APRN PCP - General Primary Care 09/07/22 01/03/24 Suzanne Mora APRN [address] [place] [address] PCP - General Family Medicine 01/04/24 Steven Marcelo MD [address] [place] [address] Surgeon General Surgery 09/07/22 Jayla Ontiveros MD [address] [place] [address] Medical Oncologist Hematology and Oncology 09/07/22 Modesta Valadez, RN Nurse Navigator 03/03/23 03/20/24 documented as of this encounter
--- OUTSIDE RECORDS SUMMARY | 2024-10-05 17:17 | XMS_ITS | Encounter Summary ---
Author Organization [employer] Address [address] [place] [address] Care Team Providers Care Water Treatment Operator Name Role Phone Komal Méndez Nick ROSS Primary Care Provider + [phone] Steven Marcelo MD Unavailable [phone] Jayla Ontiveros MD Unavailable [phone] Modesta Valadez RN Unavailable Unavailable Encounter Details Date Type Department Care Team (Late st Contact Info) Description 11/04/2019 Historic Encounter [address] [address] ProviderLamin Historical Social History Tobacco [...] Description 01/15/2025 2:45 PM EDT Office Visit [facility] - [address] [place] [address] Jayla Ontiveros MD [address] [facility] [address] [place] [address] 09/19/2025 2:30 PM EST Appointment [facility] [address] [facility] [address] [place] [address] documented as of this encounter Procedures Procedure Name Priority Date/Time Associated Diagnosis Comments URINALYSIS UA RFLX MICROSCOPIC CULT IF IND ([facility] DATA CONV) Routine 11/04/2019 9:30 PM EST URINALYSIS MICROSCOPIC ([facility] DATA CONV) Routine 11/04/2019 9:30 PM EST URINE CULTURE AND SENSITIVITY Routine 11/04/2019 9:30 PM EST CBC W/ AUTO DIFF ([facility] DATA CONV) Routine 11/04/2019 6:12 PM EST AUTOMATED DIFFERENTIAL ([facility] DATA CONV) Routine 11/04/2019 6:12 PM EST CMP COMPREHENSIVE METABOLIC PANEL ([facility] DATA CONV) Routine 11/04/2019 6:12 PM EST documented in this encounter Results * URINE CULTURE AND SENSITIVITY (11/04/2019 9:30 PM EST) Final 10,000-100,000 cfu/ml Recollect Specimen - 3 or more organisms suggests contamination Pre No growth 11/04/2019 9:30 PM EST 11/05/2019 1:56 PM EST Narrative [facility] - 11/07/2019 1:35 PM EST Ordered by Discern Expert [facility] Historical Provider PATHOLOGY/CYTOLOGY ORDE RABLES Final Result [facility] [address] [place] [address], [facility] [phone] * (ABNORMAL) URINALYSIS UA RFLX MICROSCOPIC CULT IF IND ([facility] DATA CONV) (11/04/2019 9:30 PM EST) Urine Type. U CleanCatch 11/05/2019 2:57 AM EST Urine Color Yellow 11/05/2019 2:57 AM EST Comment: Substances that cause HIGHLY abnormal urine color may affect the accuracy of URINE CHEMISTRY reagent strip results due to colorimetric interference. ??These include visible levels of blood or bilirubin, drugs containing dyes, and some antibiotics such as nitrofurantoin and riboflavin which can cause markedly abnormal urine coloration. Urine Appearance Clear 11/05/2019 2:57 AM EST Urine Specific [place] 1.007 1.005 - 1.030 11/05/2019 2:57 AM EST Urine pH Dipstick 5.5(L) 6.0 - 8.0 11/05/2019 2:57 AM EST Urine Leukocyte Esterase Moderate(A) Negative 11/05/2019 2:57 AM EST Urine Nitrite Negative Negative 11/05/2019 2:57 AM EST Urine Protein Dipstick Negative Negative 11/05/2019 2:57 AM EST Urine Glucose Dipstick Negative Negative 11/05/2019 2:57 AM EST Urine Ketones Dipstick Negative Negative 11/05/2019 2:57 AM EST Urine Urobilinogen Dipstick 1.0 0.2 - 1.0 EU/dL 11/05/2019 2:57 AM EST Urine Bilirubin Dipstick Negative Negative 11/05/2019 2:57 AM EST Urine Blood Dipstick Negative Negative 11/05/2019 2:57 AM EST 11/04/2019 9:30 PM EST 11/05/2019 2:47 AM EST [facility] Historical Provider URINE ORDERABLES Final Result [facility] [address] [phone] * (ABNORMAL) URINALYSIS MICROSCOPIC ([facility] DATA CONV) (11/04/2019 9:30 PM EST) Correlate UA Correlated Correlated 11/05/2019 3:11 AM EST Ur RBC 0-2(A) None Seen /HPF 11/05/2019 3:11 AM EST Ur WBC 20-50(A) None Seen /HPF 11/05/2019 3:11 AM EST Ur Bacteria 2+(A) None Seen 11/05/2019 3:11 AM EST Ur Amorph Trace(A) 11/05/2019 3:11 AM EST Ur Epithelial Cells 5-10(A) None Seen /HPF 11/05/2019 3:11 AM EST 11/04/2019 9:30 PM EST 11/05/2019 2:47 AM EST Narrative [facility] - 11/05/2019 3:11 AM EST Added by Discern Expert [facility] Historical Provider URINE ORDERABLES Final Result [facility] [address] [phone] * (ABNORMAL) CMP COMPREHENSIVE METABOLIC PANEL ([facility] DATA CONV) (11/04/2019 6:12 PM EST) Sodium Level 138 136 - 146 mmol/L 11/04/2019 11:35 PM EST Potassium Level 3.4(L) 3.5 - 5.1 mmol/L 11/04/2019 11:35 PM EST Chloride Level 104 102 - 112 mmol/L 11/04/2019 11:35 PM EST Carbon Dioxide Level 28 21 - 32 mmol/L 11/04/2019 11:35 PM EST Anion Gap 9 9 - 20 11/04/2019 11:35 PM EST Calcium Level 9.2 8.5 - 10.1 mg/dL 11/04/2019 11:35 PM EST Glucose Level 113(H) 74 - 106 mg/dL 11/04/2019 11:35 PM EST Comment: [employer] has become aware of sulfasalazine and sulfapyridine drug interference in the assays ALT, AST, T4, CKMB, glucose, and ammonia. The probability of misinterpretation of results for the assays is remote and would be limited to scenarios where a patient has taken the drug and had a blood sample drawn before clearance of the drug to a level that does not interfere with laboratory testing. Venipuncture should occur prior to administration of the drug. Blood Urea Nitrogen 28(H) 7 - 22 mg/dL 11/04/2019 11:35 PM EST Creatinine Level 1.72(H) 0.55 - 1.02 mg/dL 11/04/2019 11:35 PM EST Bun/Creatinine 16.3 8.0 - 20.0 11/04/2019 11:35 PM EST Albumin Level 3.8 3.4 - 5.0 Gram/dL 11/04/2019 11:35 PM EST Protein, Total 7.3 6.4 - 8.2 Gram/dL 11/04/2019 11:35 PM EST A/G Ratio 1.1 1.1 - 2.5 11/04/2019 11:35 PM EST Alk Phos 91 27 - 136 Units/Lit er 11/04/2019 11:35 PM EST ALT 26 12 - 78 Units/Lit er 11/04/2019 11:35 PM EST Comment: [employer] has become aware of sulfasalazine and sulfapyridine drug interference in the assays ALT, AST, T4, CKMB, glucose, and ammonia. The probability of misinterpretation of results for the assays is remote and would be limited to scenarios where a patient has taken the drug and had a blood sample drawn before clearance of the drug to a level that does not interfere with laboratory testing. Venipuncture should occur prior to administration of the drug. AST 27 5 - 37 Units/Lit er 11/04/2019 11:35 PM EST Comment: [employer] has become aware of sulfasalazine and sulfapyridine drug interference in the assays ALT, AST, T4, CKMB, glucose, and ammonia. The probability of misinterpretation of results for the assays is remote and would be limited to scenarios where a patient has taken the drug and had a blood sample drawn before clearance of the drug to a level that does not interfere with laboratory testing. Venipuncture should occur prior to administration of the drug. Bilirubin, Total 0.3 0.2 - 1.3 mg/dL 11/04/2019 11:35 PM EST Globulin 3.5 1.5 - 4.5 Gram/dL 11/04/2019 11:35 PM EST eGFR 36(L) >=60 mL/min/1. 73m2 11/04/2019 11:35 PM EST Comment: GFR <60 suggests chronic kidney disease, if found over 3 month period. GFR <15 indicates renal failure. eGFR NonAfrican 30(L) >=60 mL/min/1. 73m2 11/04/2019 11:35 PM EST Comment: GFR <60 suggests chronic kidney disease, if found over 3 month period. GFR <15 indicates renal failure. Blood 11/04/2019 6:12 PM EST 11/04/2019 11:16 PM EST [facility] Historical Provider LAB BLOOD ORDERABLES Fi nal Result [facility] [address] [phone] * AUTOMATED DIFFERENTIAL ([facility] BKR DATA CONV) (11/04/2019 6:12 PM EST) Neut% 55.8 34.0 - 71.0 % 11/04/2019 11:18 PM EST Lymph% 32.1 19.3 - 53.0 % 11/04/2019 11:18 PM EST Briscoe% 9.1 4.7 - 12.5 % 11/04/2019 11:18 PM EST Eos% 2.2 1.0 - 7.0 % 11/04/2019 11:18 PM EST Baso% 0.6 0.0 - 1.0 % 11/04/2019 11:18 PM EST IG% 0 0 - 1 % 11/04/2019 11:18 PM EST Neut# 2.77 1.56 - 6.13 K/uL 11/04/2019 11:18 PM EST Lymph# 1.59 1.18 - 3.74 K/uL 11/04/2019 11:18 PM EST Briscoe# 0.45 0.24 - 0.82 K/uL 11/04/2019 11:18 PM EST Eos# 0.11 0.04 - 0.54 K/uL 11/04/2019 11:18 PM EST Baso# 0.03 0.01 - 0.08 K/uL 11/04/2019 11:18 PM EST IG# 0 0 - 0 x10(3)/uL 11/04/2019 11:18 PM EST Blood 11/04/2019 6:12 PM EST 11/04/2019 11:16 PM EST Narrative [facility] - 11/04/2019 11:18 PM EST Added by Discern Expert [facility] Historical Provider LAB BLOOD ORDERABLES Fi nal Result [facility] [address] [place] [address], [facility] [phone] * CBC W/ AUTO DIFF ([facility] BKR DATA CONV) (11/04/2019 6:12 PM EST) WBC 5.0 3.9 - 10.0 K/uL 11/04/2019 11:18 PM EST RBC 4.33 3.93 - 5.22 Million/uL 11/04/2019 11:18 PM EST Comment: No Red Blood Cell reference ranges defined for patients with an ? Unknown? gender. Please apply existing Male/Female reference ranges as clinically indicated. Assay ?RBC Male ??0 ??Minutes ??2 ??Months ??4.8 7.1 Female ??0 ??Minutes ??2 ??Months ??4.8 7.1 Male ??2 ??Months ??12 ??Years ??4 5.5 Female ??2 ??Months ??12 ??Years ??4 5.5 Male ??12 ??Years ??150 ??Years ??4.63 6.08 Female ??12 ??Years ??150 ??Years ??3.93 5.22 Hgb 12.7 11.2 - 15.7 Gram/dL 11/04/2019 11:18 PM EST Comment: No Hemoglobin reference ranges defined for patients with an ? Unknown? gender. Please apply existing Male/Female reference ranges as clinically indicated. Assay ?HGB Male ??0 ??Days ??1 ??Months ??12 23 Female ??0 ??Days ??1 ??Months ??12 23 Male ??1 ??Months ??2 ??Years ??10 14 Female ??1 ??Months ??2 ??Years ??10 14 Male ??2 ??Years ??12 ??Years ??11 16 Female ??2 ??Years ??12 ??Years ??11 16 Male ??12 ??Years ??150 ??Years ??13.7 17.5 Female ??12 ??Years ??150 ??Years ??11.2 15.7 Hct 38.2 34.1 - 44.9 % 11/04/2019 11:18 PM EST Comment: No Hematocrit reference ranges defined for patients with an ? Unknown? gender. Please apply existing Male/Female reference ranges as clinically indicated. Assay ?HCT Male ??0 ??Minutes ??1 ??Months ??42 66 Female ??0 ??Minutes ??1 ??Months ??42 66 Male ??1 ??Months ??2 ??Years ??31 42 Female ??1 ??Months ??2 ??Years ??31 42 Male ??2 ??Years ??12 ??Years ??33 46 Female ??2 ??Years ??12 ??Years ??33 46 Male ??12 ??Years ??150 ??Years ??40.1 51 Female ??12 ??Years ??150 ??Years ??34.1 44.9 MCV 88.2 79.0 - 94.8 fL 11/04/2019 11:18 PM EST MCH 29.3 25.6 - 32.2 pg 11/04/2019 11:18 PM EST MCHC 33.2 32.3 - 36.5 Gram/dL 11/04/2019 11:18 PM EST RDW 13.1 11.6 - 14.4 % 11/04/2019 11:18 PM EST Platelet Count 167 163 - 369 K/uL 11/04/2019 11:18 PM EST MPV 9.4 9.4 - 12.4 fL 11/04/2019 11:18 PM EST Slide Review No 11/04/2019 11:18 PM EST Blood 11/04/2019 6:12 PM EST 11/04/2019 11:16 PM EST us [facility] Historical Provider LAB BLOOD ORDERABLES Fi nal Result [facility] [address] [place] [address], [facility] [phone] documented in this encounter Visit Diagnoses Not on filedocumented in this encounter Care Teams Water Treatment Operator Relationship Specialty Start Date End Date Komal Méndez, BOND BROKER PCP - General Primary Care 09/07/22 01/03/24 Steven Marcelo MD [address] [facility] [address] [place] [address] Surgeon General Surgery 09/07/22 Jayla Ontiveros MD [address] [facility] [address] [place] [address] Medical Oncologist Hematology and Oncology 09/07/22 Rory, Modesta Walsh, RN Nurse Navigator 03/03/23 03/20/24 documented as of this encounter
--- OUTSIDE RECORDS SUMMARY | 2024-10-05 17:17 | XMS_ITS | Encounter Summary ---
Author Organization [employer] Address [address] [place] [address] Care Team Providers Care Network Consultant Name Role Phone Komal Méndez Nick ROSS Primary Care Provider + [phone] Steven Marcelo MD Unavailable [phone] Jayla Ontiveros MD Unavailable [phone] Encounter Details Date Type Department Care Team (Late st Contact Info) Description 06/19/2020 Historic Encounter [facility] Radiology 1 [place] [address] Myriam Tomas MD [address] [place] [address] Social History Tobacco Use Types Packs/Day Years [...] Description 01/15/2025 2:45 PM EDT Office Visit [facility] - [place] [address] [place] [address] Jayla Ontiveros MD [address] [place] [address] 09/19/2025 2:30 PM EST Appointment [facility] [address] [facility] [address] [place] [address] documented as of this encounter Procedures Procedure Name Priority Date/Time Associated Diagnosis Comments MM DIGITAL MAMMO SCREEN WITH JOSE ALBERTO BILATERAL Routine 06/19/2020 3:13 PM EDT documented in this encounter Results * MM digital mammo screen with jose alberto bilateral (06/19/2020 3:13 PM EDT) Anatomical Region Laterality Modality Breast Bilateral Mammography 06/19/2020 3:13 PM EDT Narrative 06/19/2020 9:55 PM EDT PROCEDURE: Digital screening mammogram with tomosynthesis. REASON FOR EXAM: Routine screening. FAMILY HISTORY: ??There is no family history of breast cancer. COMPARISON STUDY: [facility] [phone]. FINDINGS: Craniocaudal and mediolateral oblique images of both breasts were obtained in 2D, C-view, and 3D modes. The breast tissue has pattern b (scattered fibroglandular densities). Bilateral vascular calcifications and coarse calcifications in the right breast are again visualized. There has been no change in an island of asymmetric fibroglandular tissue at approximately 6:00 location in the inferior aspect of the right breast. A new nodule measuring approximately 3 mm is observed in the left lower inner quadrant. Further characterization and with 3-D spot compression views will be attempted. The mammogram was interpreted with the benefit of computer aided detection (CAD). FINAL IMPRESSION: ACR BI-RADS 0: Incomplete: Needs additional imaging evaluation. This report will serve as an order for the imaging studies listed below. RECOMMENDATIONS: Additional views of the left breast. A letter including results and recommendations was sent to the patient. Density notification was included for patients with pattern 3 or 4 breast tissue. Patient information was entered into a reminder system with a target due date for the next mammogram. At our facility, a atka marker is positioned over a visible skin lesion and a linear marker is used to indicate a scar. A triangular marker is placed on a self reported palpable finding. ?? Procedure Note Myriam Tomas MD - 02/22/2023 PROCEDURE: Digital screening mammogram with tomosynthesis. REASON FOR EXAM: Routine screening. FAMILY HISTORY: There is no family history of breast cancer. COMPARISON STUDY: [facility] [id number]. FINDINGS: Craniocaudal and mediolateral oblique images of both breasts were obtained in 2D, C-view, and 3D modes. The breast tissue has pattern b (scattered fibroglandular densities). Bilateral vascular calcifications and coarse calcifications in the right breast are again visualized. There has been no change in an island of asymmetric fibroglandular tissue at approximately 6:00 location in the inferior aspect of the right breast. A new nodule measuring approximately 3 mm is observed in the left lower inner quadrant. Further characterization and with 3-D spot compression views will be attempted. The mammogram was interpreted with the benefit of computer aided detection (CAD). FINAL IMPRESSION: ACR BI-RADS 0: Incomplete: Needs additional imaging evaluation. This report will serve as an order for the imaging studies listed below. RECOMMENDATIONS: Additional views of the left breast. A letter including results and recommendations was sent to the patient. Density notification was included for patients with pattern 3 or 4 breast tissue. Patient information was entered into a reminder system with a target due date for the next mammogram. At our facility, a atka marker is positioned over a visible skin lesion and a linear marker is used to indicate a scar. A triangular marker is placed on a self reported palpable finding. us Myriam Tomas MD IMG MAMMOGRAPHY ORDERABLES Fin al Result documented in this encounter Visit Diagnoses Not on filedocumented in this encounter Care Teams Network Consultant Relationship Specialty Start Date End Date Komal Méndez, CODY PCP - General Primary Care 09/07/22 01/03/24 Steven Marcelo MD [address] [address] Surgeon General Surgery 09/07/22 Jayla Ontiveros MD [address] [place] [address] Medical Oncologist Hematology and Oncology 09/07/22 documented as of this encounter
--- OUTSIDE RECORDS SUMMARY | 2024-10-05 17:17 | XMS_ITS | Encounter Summary ---
Author Organization [employer] Address [address] [place] [address] Care Team Providers Care Automation Sales Manager Name Role Phone Komal Méndez CODY Primary Care Provider + [phone] Steven Marcelo MD Unavailable [phone] Jayla Ontiveros MD Unavailable [phone] Encounter Details Date Type Department Care Team (Late st Contact Info) Description 11/17/[address] [facility] Radiology 1 [place] [address] Jaun Browne MD [facility] [place] [address] Social History Tobacco Use Types Packs/Day Years [...] Description 01/15/2025 2:45 PM EDT Office Visit [facility] [address] [place] [address] Jayla Ontivreos MD [address] [place] [address] 09/19/2025 2:30 PM EST Appointment [facility] [address] [facility] [address] [place] [address] documented as of this encounter Procedures Procedure Name Priority Date/Time Associated Diagnosis Comments US LEG LEFT MAPPING FOR VARICOSE VEINS Routine 11/17/2020 4:14 PM EST documented in this encounter Results * Ultrasound leg left mapping for varicose veins (11/17/2020 4:14 PM EST) Anatomical Region Laterality Modality Vascular, Thigh, Leg Ultrasound 11/17/2020 4:14 PM EST Narrative 11/17/2020 11:03 PM EST LEFT ??LOWER EXTREMITY VENOUS DUPLEX DOPPLER EXAMINATION HISTORY: Left lower extremity swelling . PROCEDURE: Multiple transverse and longitudinal scans were performed of the femoropopliteal deep venous system, with augmentation and compression maneuvers. ??Analysis was performed using huggins scale, Doppler color imaging and spectral analysis. FINDINGS: ??Normal phasic flow was noted in the visualized deep venous system. No intraluminal increased echogenicity is noted to suggest thrombus. There is normal compression and augmentation of the venous structures. No abnormal venous collaterals are seen. No venous reflux is demonstrated . IMPRESSION: ??No evidence of left lower extremity DVT . Images reviewed, interpreted, and dictated by Dr. Jaun Browne. Transcribed by Chip Merino PA-C, R.T. (N), C N M T. I have personally viewed, interpreted and dictated the examination. I have read and agree with the above final transcribed report. Procedure Note Jaun Browne MD - 02/22/2023 LEFT LOWER EXTREMITY VENOUS DUPLEX DOPPLER EXAMINATION HISTORY: Left lower extremity swelling . PROCEDURE: Multiple transverse and longitudinal scans were performed of the femoropopliteal deep venous system, with augmentation and compression maneuvers. Analysis was performed using huggins scale, Doppler color imaging and spectral analysis. FINDINGS: Normal phasic flow was noted in the visualized deep venous system. No intraluminal increased echogenicity is noted to suggest thrombus. There is normal compression and augmentation of the venous structures. No abnormal venous collaterals are seen. No venous reflux is demonstrated . IMPRESSION: No evidence of left lower extremity DVT . Images reviewed, interpreted, and dictated by Dr. Jaun Browne. Transcribed by Chip Merino PA-C, RDaquanTDaquan (N), C N M T. I have personally viewed, interpreted and dictated the examination. I have read and agree with the above final transcribed report. us Jaun Browne MD IMG US ORDERABLES Final Result documented in this encounter Visit Diagnoses Not on filedocumented in this encounter Care Teams Automation Sales Manager Relationship Specialty Start Date End Date Komal Méndez, FIELD RADIO OPERATOR PCP - General Primary Care 09/07/22 01/03/24 Steven Marcelo MD [address] [facility] [address] [place] [address] Surgeon General Surgery 09/07/22 Jayla Ontiveros MD [address] [facility] [address] [place] [address] Medical Oncologist Hematology and Oncology 09/07/22 documented as of this encounter
--- OUTSIDE RECORDS SUMMARY | 2024-10-05 17:17 | XMS_ITS | Encounter Summary ---
Author Organization [employer] Address [address] [place] [address] Care Team Providers Care Projector Booth Operator Name Role Phone Komal Méndez Nick ROSS Primary Care Provider + [phone] Steven Marcelo MD Unavailable [phone] Jayla Ontiveros MD Unavailable [phone] Encounter Details Date Type Department Care Team (Late st Contact Info) Description 12/03/2020 Historic Encounter [facility] Radiology 1 [place] [address] Alberto Schwab MD [facility] [place] [address] Social History Tobacco Use Types Packs/Day Years [...] Description 01/15/2025 2:45 PM EDT Office Visit [facility] - [facility] [address] [place] [address] Jayla Ontiveros MD [address] [place] [address] 09/19/2025 2:30 PM EST Appointment [facility] [address] [facility] [address] [place] [address] documented as of this encounter Procedures Procedure Name Priority Date/Time Associated Diagnosis Comments XR KNEE 1 OR 2 VIEWS LEFT Routine 12/03/2020 4:25 PM EST documented in this encounter Results * XR knee 1 or 2 views left (12/03/2020 4:25 PM EST) Anatomical Region Laterality Modality Thigh, Knee, Leg X-Ray 12/03/2020 4:25 PM EST Narrative 12/03/2020 10:11 PM EST LEFT KNEE HISTORY: Left knee pain. FINDINGS: 3 views show no evidence of an acute, displaced fracture or dislocation of the visualized bony architecture. ??There is minimal osteophyte formation along the undersurface of the patella. ? IMPRESSION: Minimal degenerative change without acute bony abnormality. ?? Images reviewed, interpreted, and dictated by Dr. Alberto Schwab. Transcribed by Agustín Goins PA-C. I have personally viewed, interpreted and dictated the examination. I have read and agree with the above final transcribed report. Procedure Note Alberto Schwab MD - 02/22/2023 LEFT KNEE HISTORY: Left knee pain. FINDINGS: 3 views show no evidence of an acute, displaced fracture or dislocation of the visualized bony architecture. There is minimal osteophyte formation along the undersurface of the patella. IMPRESSION: Minimal degenerative change without acute bony abnormality. Images reviewed, interpreted, and dictated by Dr. Alberto Schwab. Transcribed by Agustín Goins PA-C. I have personally viewed, interpreted and dictated the examination. I have read and agree with the above final transcribed report. Alberto Schwab MD IMG DIAGNOSTIC IMAGING ORDERAB LES Final Result documented in this encounter Visit Diagnoses Not on filedocumented in this encounter Care Teams Projector Booth Operator Relationship Specialty Start Date End Date Komal Méndez, SPRING UPHOLSTERER PCP - General Primary Care 09/07/22 01/03/24 Steven Marcelo MD [address] [facility] [address] [place] [address] Surgeon General Surgery 09/07/22 Jayla Ontiveros MD [address] [facility] [address] [place] [address] Medical Oncologist Hematology and Oncology 09/07/22 documented as of this encounter
--- OUTSIDE RECORDS SUMMARY | 2024-10-05 17:17 | XMS_ITS | Encounter Summary ---
Author Organization [employer] Address [address] [place] [address] Care Team Providers Care Commodity Specialist Name Role Phone Irene Méndezh Nick ROSS Primary Care Provider + [phone] Steven Marcelo MD Unavailable [phone] Jayla Ontiveros MD Unavailable [phone] Modesta Valadez RN Unavailable Unavailable Suzanne Mora APRN Primary Care Provider [phone] Encounter Details Date Type Department Care Team (Late st Contact Info) Description 11/04/2019 Transcribed Document [facility] Family Medicine Formerly [facility] [place] [address] ProviderNimisha MD [address] [place] [address] Social History Tobacco Use Types Packs/Day Years Used Date Smoking Tobacco: Never Assessed Comments Unknown Sex and Gender Information Value Date Recorded Sex Assigned at Not on file Legal Sex Female 4:30 PM CDT Gender Identity Not on file Sexual Orientation Not on file documented as of this encounter Miscellaneous Notes * Cerner Conversion Note - Nimisha ProviderMD - 11/04/2019 10:31 PM SUPERVISOR UNLOADING ED Discharge Entered On: 11/04/2019 22:31 EST Performed On: 11/04/2019 22:31 EST by Alyse Tobias trial mgr Process Patient Disposition : Discharge Personal Belongings With Patient : Yes Patient Education Completed : Yes Teaching Evaluation : Verbalizes understanding IV Discontinued : Yes Nursing Documentation Completed : Yes Alyse Tobias RN - 11/04/2019 22:31 EST ED Discharge Discharge To : Home with ambulatory/outpatient follow-up Mode Of Departure : Ambulatory Accompanied By : Unaccompanied Discharge Instructions Reviewed With, Opportunity For Questions Given : Patient Prescriptions Given to Patient : No Medications Given to Patient : Yes Alyse Tobias RN - 11/04/2019 22:31 EST Electronically signed by [facility], [facility] Conversion General Service Technician Cerner at 02/22/2023 12:00 PM CDT documented in this encounter Plan of Treatment Upcoming Encounters Date Type Department Care Team (Late st Contact Info) Description 01/15/2025 2:45 PM EDT Office Visit [facility] - [employer] [facility] [employer] [facility] [address] [facility] [address] [place] [address] Jayla Ontiveros MD [address] [facility] [address] [place], [place] [id number] 09/19/2025 2:30 PM EST Appointment [facility] Breast [facility] [address] [facility] [address] [place] [address] documented as of this encounter Visit Diagnoses Not on filedocumented in this encounter Care Teams Commodity Specialist Relationship Specialty Start Date End Date Komal Méndez APRN PCP - General Primary Care 09/07/22 01/03/24 Suzanne Mora, CODY [address] [place] [address] PCP - General Family Medicine 01/04/24 Steven Marcelo MD [address] [place] [address] Surgeon General Surgery 09/07/22 Jayla Ontiveros MD [address] [facility] [address] [place], [place] [id number] Medical Oncologist Hematology and Oncology 09/07/22 Modesta Valadez, RN Nurse Navigator 03/03/23 03/20/24 documented as of this encounter
--- OUTSIDE RECORDS SUMMARY | 2024-10-05 17:18 | XMS_ITS | Encounter Summary ---
Author Organization [employer] Address [address] [place] [address] Care Team Providers Care Grounds Manager Name Role Phone Komal Méndez Nick ROSS Primary Care Provider + [phone] Steven Marcelo MD Unavailable [phone] Jayla Ontiveros MD Unavailable [phone] Modesta Valadez RN Unavailable Unavailable Encounter Details Date Type Department Care Team (Late st Contact Info) Description 11/20/2018 Historic Encounter [address] [address] ProviderLamin Historical Social History Tobacco [...] Description 01/15/2025 2:45 PM EDT Office Visit [facility] - [place] [address] [place] [address] Jayla Ontiveros MD [address] [facility] [address] [place] [address] 09/19/2025 2:30 PM EST Appointment [facility] [address] [facility] [address] [place] [address] documented as of this encounter Procedures Procedure Name Priority Date/Time Associated Diagnosis Comments URINALYSIS UA RFLX MICROSCOPIC CULT IF IND ([facility] BKR DATA CONV) Routine 11/20/2018 11:57 AM EST documented in this encounter Results * URINALYSIS UA RFLX MICROSCOPIC CULT IF IND ([facility] BKR DATA CONV) (11/20/2018 11:57 AM EST) Urine Type. U CleanCatch 11/20/2018 5:17 PM EST Urine Color Yellow 11/20/2018 5:21 PM EST Comment: Substances that cause HIGHLY abnormal urine color may affect the accuracy of URINE CHEMISTRY reagent strip results due to colorimetric interference. ??These include visible levels of blood or bilirubin, drugs containing dyes, and some antibiotics such as nitrofurantoin and riboflavin which can cause markedly abnormal urine coloration. Urine Appearance Clear 11/20/2018 5:21 PM EST Urine Specific [place] 1.013 1.005 - 1.030 11/20/2018 5:21 PM EST Urine pH Dipstick 6.5 6.0 - 8.0 11/20/2018 5:21 PM EST Urine Leukocyte Esterase Negative Negative 11/20/2018 5:21 PM EST Urine Nitrite Negative Negative 11/20/2018 5:21 PM EST Urine Protein Dipstick Negative Negative 11/20/2018 5:21 PM EST Urine Glucose Dipstick Negative Negative 11/20/2018 5:21 PM EST Urine Ketones Dipstick Negative Negative 11/20/2018 5:21 PM EST Urine Urobilinogen Dipstick 0.2 0.2 - 1.0 EU/dL 11/20/2018 5:21 PM EST Urine Bilirubin Dipstick Negative Negative mg/dL 11/20/2018 5:21 PM EST Urine Blood Dipstick Negative Negative 11/20/2018 5:21 PM EST 11/20/2018 11:5 7 AM EST 11/20/2018 5:17 PM EST Sle Historical Provider URINE ORDERABLES Final Result [facility] [address] [phone] documented in this encounter Visit Diagnoses Not on filedocumented in this encounter Care Teams Grounds Manager Relationship Specialty Start Date End Date Komal Méndez APRN PCP - General Primary Care 09/07/22 01/03/24 Steven Marcelo MD [address] [facility] [address] [place] [address] Surgeon General Surgery 09/07/22 Jayla Ontiveros MD [address] [facility] [address] [place] [address] Medical Oncologist Hematology and Oncology 09/07/22 Rory, Modesta Walsh RN Nurse Navigator 03/03/23 03/20/24 documented as of this encounter
--- OUTSIDE RECORDS SUMMARY | 2024-10-05 17:18 | XMS_ITS | Encounter Summary ---
Author Organization [employer] Address [address] [place] [address] Care Team Providers Care Furniture Designer Name Role Phone Komal Méndez APRN Primary Care Provider + [phone] Steven aMrcelo MD Unavailable [phone] Jayla Ontiveros MD Unavailable [phone] Modesta Valadez RN Unavailable Unavailable Suzanne Mora APRN Primary Care Provider [phone] Encounter Details Date Type Department Care Team (Late st Contact Info) Description 11/20/2018 Transcribed Document [facility] [place] Family [facility] [place] [address] ProviderNimisha MD [address] [place] [address] Social History Tobacco Use Types Packs/Day Years Used Date Smoking Tobacco: Never Assessed Comments Unknown Sex and Gender Information Value Date Recorded Sex Assigned at Not on file Legal Sex Female 4:30 PM CDT Gender Identity Not on file Sexual Orientation Not on file documented as of this encounter Miscellaneous Notes * Cerner Conversion Note - Historical ProviderMD - 11/20/2018 2:44 PM CAR FRAMER Electronically signed by [facility], [facility] Conversion Fly Raiser Lockstitch Cerner at 02/22/2023 12:03 PM CDT documented in this encounter Plan of Treatment Upcoming Encounters Date Type Department Care Team (Late st Contact Info) Description 01/15/2025 2:45 PM EDT Office Visit [facility] On[facility] - [facility] [address] [place] [id number] Jayla Ontiveros MD [address] [facility] [address] [place] [address] 09/19/2025 2:30 PM EST Appointment [facility] Breast [facility] [address] [facility] [address] [place] [address] documented as of this encounter Visit Diagnoses Not on filedocumented in this encounter Care Teams Furniture Designer Relationship Specialty Start Date End Date Komal Méndez, GEOTECHNICAL DEPARTMENT MANAGER PCP - General Primary Care 09/07/22 01/03/24 Suzanne Mora, GEOTECHNICAL DEPARTMENT MANAGER [address] [place] [address] PCP - General Family Medicine 01/04/24 Steven Marcelo MD [address] [facility] [address] [place] [address] Surgeon General Surgery 09/07/22 Jayla Ontiveros MD [address] [facility] [address] [place] [address] Medical Oncologist Hematology and Oncology 09/07/22 Rory, Modesta Walsh, RN Nurse Navigator 03/03/23 03/20/24 documented as of this encounter
--- OUTSIDE RECORDS SUMMARY | 2024-10-05 17:18 | XMS_ITS | Encounter Summary ---
Author Organization [facility] Address [address] [place] [address] Care Team Providers Care Public Safety Officer Name Role Phone Unavailable Primary Care Provider Unavailabl e Encounter Details Date Type Department Care Team (Late st Contact Info) Description 02/07/2014 3:59 PM EDT - 02/07/2014 11:59 PM EDT Hospital Encounter [facility] [address] [place] [phone] Taran Nunez, DO [address] [place] [address] Social History Tobacco Use Types Packs/Day Years Used Date Smoking Tobacco: Never Assessed Comments Unknown Sex and Gender Information Value Date Recorded Sex Assigned at Not on file Legal Sex Female 10:03 AM EDT Gender Identity Not on file Sexual Orientation Not on file documented as of this encounter Plan of Treatment Not on file documented as of this encounter Procedures Procedure Name Priority Date/Time Associated Diagnosis Comments MAMMO SCREENING BILATERAL W CAD Routine 02/07/2014 4:03 PM EDT documented in this encounter Results * MAMMOGRAPHY SCREENING BILATERAL (02/07/2014 4:03 PM EDT) Anatomical Region Laterality Modality Breast Bilateral Mammography 02/07/2014 4:03 PM EDT Narrative 02/08/2014 9:48 AM EDT ROUTINE BILATERAL SCREENING MAMMOGRAM - 02/07/2014: HISTORY: ??63-year-old female with no personal or family history breast cancer IMAGE COMPARISON: ??Prior exams most recently 02/02/13 TECHNIQUE: ??Low dose full field digital mammography was performed in both 2 dimensions and 3 D tomosynthesis imaging. FINDINGS: ??There are scattered areas of fibroglandular density bilaterally. There is no focal suspicious mass, group of calcifications, or architectural distortion to suggest malignancy. ASSESSMENT: ??BI-RADS CATEGORY I, NEGATIVE. MANAGEMENT: ??Routine screening. iCAD was utilized. The standard false-negative rate of mammography is between 10% and 25%. Complex patterns or increased breast density will markedly elevate the false-negative rate of mammography. ?? A letter, in lay terminology, with the results of this exam will be mailed to the patient. ? Batch Tank Controller- YESSENIA CERDA ? Reading Radiologist- ALEXSANDRA CHONG ? Releasing Radiologist- ALEXSANDRA CHONG ? Released Date Time- 02/12/14 1043 us Taran Nunez DO IMG MAMMOGRAPHY ORDER YONATHAN Final Result documented in this encounter Visit Diagnoses Not on filedocumented in this encounter
--- OUTSIDE RECORDS SUMMARY | 2024-10-05 17:18 | XMS_ITS | Encounter Summary ---
Author Organization [employer] Address [address] [place] [address] Care Team Providers Care Sas Clinical Programmer Name Role Phone Irene Méndezh Nick ROSS Primary Care Provider + [phone] Steven Marcelo MD Unavailable [phone] Jayla Ontiveros MD Unavailable [phone] Modesta Valadez RN Unavailable Unavailable Suzanne Mora APRN Primary Care Provider [phone] Encounter Details Date Type Department Care Team (Late st Contact Info) Description 03/19/2019 Transcribed Document [facility] [place] Family [place] [address] ProviderNimisha MD [address] [place] [address] Social History Tobacco Use Types Packs/Day Years Used Date Smoking Tobacco: Never Assessed Comments Unknown Sex and Gender Information Value Date Recorded Sex Assigned at Not on file Legal Sex Female 4:30 PM CDT Gender Identity Not on file Sexual Orientation Not on file documented as of this encounter Miscellaneous Notes * Cerner Conversion Note - Historical ProviderMD - 03/19/2019 11:17 AM CDT Pre Procedure Adult Entered On: 03/19/2019 11:40 EDT Performed On: 03/19/2019 11:17 EDT by SWATHI CASTILLO, RN Height and Weight, Clinical Dosing Height Source : Stated Height Entry Format : [place] Height, Feet : 5 ft(Converted to: 152 cm, 60 Inch) Height, Inches : 7 Inch(Converted to: 0 ft 7 Inch, 17.78 cm) Clinical Height : 170.18 cm Weight Source : Standing scale Weight Entry Format : [place] Clinical Dosing Weight : 63.18 kg Weight, Pounds : 139 lb Body Surface Area (BSA) : 1.73 m2 Body Mass Index : 21.8 kg/m2 [place] Body Weight : 61 kg SWATHI CASTILLO RN - 03/19/2019 11:17 EDT Health Histories Smoking Status : Never (less than 100 in lifetime; none in last 30 days) Smokeless Tobacco Status : Never SWATHI CASTILLO RN - 03/19/2019 11:17 EDT Social History (As Of: 03/19/2019 11:40:07 EDT) Tobacco: Smoking Status Never smoker. (Last [...] by BLAKE HERMAN RN) Infectious Disease History Infectious Disease History : Influenza, Measles, Mumps Fever/Chills Last 48 Hours : No Travel To Regions with Travel Advisories : No Travel Outside [place] Within Last 30 Days : No Contact With Traveler to Advisory Region : No Tuberculosis Symptoms : None SWATHI CASTILLO RN - 03/19/2019 11:17 EDT Anesthesia/Transfusion History Family History of Anesthesia Reaction : No prior transfusion(s) Blood Transfusion Acceptable to Patient : Yes Transfusion History : Prior anesthesia without reaction Family History of Anesthesia Reaction : None SWATHI CASTILLO RN - 03/19/2019 11:17 EDT Functional Assessment Living Situation : Home Patient Lives With : Adult Child/Children Current Home Treatments : None SWATHI CASTILLO RN - 03/19/2019 11:17 EDT Psychosocial History Currently in Unsafe Situation : No Tried to Harm Yourself in the Past? : No Thoughts of Harming/Killing Yourself : No SWATHI CASTILLO RN - 03/19/2019 11:17 EDT Advance Directive Patient has Advance Directive *Q : No, patient refuses Advance Directive information SWATHI CASTILLO RN - 03/19/2019 11:17 EDT Teaching/Learning Assessment Barriers To Learning : None evident Individuals Taught : Patient, Spouse Readiness to Learn : Cooperative Baseline Knowledge of Topic : Limited Readiness to Learn : Demonstration, Explanation Learning Style Preferences Patient : None Learning Style Preferences Family : None SWATHI CASTILLO RN - 03/19/2019 11:17 EDT Education Topics, Periop Preadmission Perioperative Education Grid Arrival Time/Place : Verbalizes understanding, Returns demonstration CAUTI : Verbalizes understanding, Returns demonstration Central Lines : Verbalizes understanding, Returns demonstration CHG Preoperative Bathing/Cloths : Verbalizes understanding, Returns demonstration Falls : Verbalizes understanding, Returns demonstration Incentive Spirometry : Verbalizes understanding, Returns demonstration Infection Control : Verbalizes understanding, Returns demonstration IV's : Verbalizes understanding, Returns demonstration NPO Status/Directions : Verbalizes understanding, Returns demonstration Pain Management : Verbalizes understanding, Returns demonstration Postoperative Care Preparations : Verbalizes understanding, Returns demonstration Preprocedure Preparations : Verbalizes understanding, Returns demonstration Preprocedure Tests/Labs : Verbalizes understanding, Returns demonstration Remove Body Piercings : Verbalizes understanding, Returns demonstration Responsible Adult : Verbalizes understanding, Returns demonstration Take/Hold Medications Pre-Procedure : Verbalizes understanding, Returns demonstration Other : Verbalizes understanding, Returns demonstration SWATHI CASTILLO RN - 03/19/2019 11:17 EDT General Info Arrived From : Home Mode of Arrival on Unit : Ambulatory Legal Guardian : Daughter Support Person/Patient Scientific Glass Blower : Yes Support Person/Pt Rep Name : Nette Krueger, daughter Support Person/Pt Rep Contact Information : [phone] Want Family/Rep/Phys Notified of Admit : No Emergency Contact #1 : see above Emergency Contact #1 Phone Number : na Emergency Contact #1 Relationship : na Emergency Contact #2 : none Emergency Contact #2 Phone Number : na Emergency Contact #2 Relationship : na Primary Language : Iraqi Preferred Communication Mode : Verbal Communication Barrier : None SWATHI CASTILLO RN - 03/19/2019 11:17 EDT Vital Measurements Temperature Source : Temporal artery scanning Temperature Mode : Fahrenheit Temperature, Fahrenheit : 97.4 Deg F Clinical Temperature, C : 36.3 Deg C Peripheral Pulse Rate : 65 bpm Systolic Blood Pressure : 136 mmHg Diastolic Blood Pressure : 64 mmHg Oxygen Saturation : 100 % Oxygen Therapy Mode : Room air SWATHI CASTILLO RN - 03/19/2019 11:17 EDT Sleep Apnea Risk Assmt Hx of Obstructive Sleep Apnea Diagnosis : No Snore Loudly : No Tired, Fatigued, or Sleepy During Day : No Observed Stopping Breathing During Sleep : No Have/Are Being Treated for Hypertension : Yes BMI Greater Than 35 kg/m2 : Yes Age over 50 Years Old : Yes Neck Circumference Greater Than 40 cm : No Gender Male : No STOP-BANG Sleep Apnea Risk Level Score : 3 SWATHI CASTILLO RN - 03/19/2019 11:17 EDT Phillip Scale Phillip Sensory Perception : No impairment Phillip Moisture : Rarely moist Phillip Activity : Walks occasionally Phillip Mobility : No limitation Phillip Nutrition : Adequate Phillip Friction and Shear : No apparent problem Phillip Score : 21 SWATHI CASTILLO RN - 03/19/2019 11:17 EDT Oxygen Therapy Oxygen Therapy Mode : Room air SWATHI CASTILLO RN - 03/19/2019 11:17 EDT Pain Assessment Pain Assessment : Initial assessment Pain Scale Used : 0-10 Scale SWATHI CASTILLO RN - 03/19/2019 11:17 EDT Fall Risk Scales ABCs Fall Injury Risk Identification : Age ABC Fall Injury Risk : Moderate to high injury risk HADDAD Hx Falls Immediate/Within 3 Months : No Haddad Secondary Diagnosis : No HADDAD Use of Ambulatory Aid : None HADDAD IV Therapy or IV Access : Yes Haddad Gait/Transferring : Normal, bedrest, immobile Haddad Mental Status : Oriented to own ability Haddad Fall Risk Score : 20 HADDAD Fall Scale Risk Level : 0-24 Low Risk [place] Fall Interventions : Adequate lighting, Bed in low position, Call device within reach, Non-slip footwear, Personal items within reach, Room free of clutter/spills, Wheels locked, Wires/Cords secured SWATHI CASTILLO RN - 03/19/2019 11:17 EDT Valuables and Belongings Valuables and Belongings : Clothing, Jewelry, Personal devices, Personal items, Medications, No comfort items Clothing : Common streetwear Clothing Disposition : Bedside Personal Device Disposition : With family, Declines to send to security/safe Jewelry : Ring Jewelry Disposition : With patient, Declines to send to security/safe Personal Devices : Dentures, partial plate Personal Items : Cell phone, Wallet Personal Items Disposition : Bedside, With family, Declines to send to security/safe Medication Disposition : Bedside, With family, Declines to send to security/safe Medication Brought With Patient : Yes Belongings Sent Home With : daughterNette Disposition Comment : pt denies having any valuables that need locked in hospital safe SWATHI CASTILLO, RN - 03/19/2019 11:17 EDT Pain Scale Intensity : 0 SWATHI CASTILLO RN - 03/19/2019 11:17 EDT Image 4 - Images currently included in the form version of this document have not been included in the text rendition version of the form. documented in this encounter Plan of Treatment Upcoming Encounters Date Type Department Care Team (Late st Contact Info) Description 01/15/2025 2:45 PM EDT Office Visit [place] [facility] - [facility] [address] [facility] [address] [place] [phone] Jayla Ontiveros MD [address] [facility] [address] [place] [address] 09/19/2025 2:30 PM EST Appointment [facility] Breast [facility] [address] [facility] [address] [place] [address] documented as of this encounter Visit Diagnoses Not on filedocumented in this encounter Care Teams Sas Clinical Programmer Relationship Specialty Start Date End Date Komal Méndez APRN PCP - General Primary Care 09/07/22 01/03/24 Szuanne Mora APRN [address] [place] [address] PCP - General Family Medicine 01/04/24 Steven Marcelo MD [address] [facility] [address] [place] [address] Surgeon General Surgery 09/07/22 Jayla Ontiveros MD [address] [facility] [address] [place] [address] Medical Oncologist Hematology and Oncology 09/07/22 Rory, Modesta Walsh RN Nurse Navigator 03/03/23 03/20/24 documented as of this encounter
--- OUTSIDE RECORDS SUMMARY | 2024-10-05 17:18 | XMS_ITS | Clinical Summary ---
Author Organization [facility] Address [address] [place] [address] Care Team Providers Care Pastoral Assistant Name Role Phone Provider, No Known Primary Care Provider Unavail able Allergies Active Allergy Reactions Criticality Noted Date Comments Valdecoxib 11/26/2017 Nsaids Other (See Comments) 11/26/2017 Single kidney---functioning at 50% Medications LISINOPRIL PO Take by mouth. Active apixaban (ELIQUIS) 5 MG tablet tablet Take 5 mg by mouth 2 (Two) Times a Day. Active METOPROLOL SUCCINATE ER PO Take by mouth. Active Social History Tobacco Use Types Packs/Day Years Used Date Smoking Tobacco: Never Abuse Screen Answer Date Recorded Unsafe at Home or Work/School Not on file Feels Threatened by Someone? Not on file 07/2023 Does Anyone Keep You from Co ntacting Others or Doint Things Outside the Home? Not on file 08/15/2023 Physical Sign of Abuse Present Not on file 1 Housing Stability Answer Date Recorded Current Living Arrangements Not on file 07/2023 Potentially Unsafe Housing Conditions Not on enriqueta e 08/15/2023 Family and Community Support Answer Yossi e Recorded Help with Day-to-Day Activities Not on file 08/15/2023 Lonely or Isolated Not on file 08/15/2023 Employment Answer Date Recorded Do you want help finding or keeping work or a dean b? Not on file 08/15/2023 Disabilities Answer Date Recorded Concentrating, Remembering, or Making Decisions Difficulty Not on file 08/15/2023 Doing Errands Independently Difficulty Not on fi le 08/15/2023 Education Answer Date Recorded Help with school or training? Not on file Preferred Language Not on file 08/15/2023 Comments No Sex and Gender Information Value Date Recorded Sex Assigned at Not on file Legal Sex Female 10:03 AM EDT Gender Identity Not on file Sexual Orientation Not on file Last Filed Vital Signs Vital Sign Reading Time Taken Comments Blood Pressure - - Pulse 108 11/26/2017 11:44 AM EST Temperature 37.9 ??C (100.2 ??F) 11/26/2017 11:44 AM EST Respiratory Rate 18 11/26/2017 11:4 4 AM EST Oxygen Saturation 97% 11/26/2017 11: 44 AM EST Inhaled Oxygen Concentration - - Weight 60.7 kg (133 lb 12.8 oz) 018 11:44 AM EST Height 171 cm (5' 7.32 ) 11/26/2017 11: 44 AM EST Body Mass Index 20.76 11/26/2017 11:44 AM EST Plan of Treatment Health Maintenance Due Date Last Done Comments COLOGUARD 1950 COLON CANCER SCREENING 5 YEA R SIGMOIDOSCOPY 1952 COLONOSCOPY 1952 COLORECTAL CANCER SCREENING 1952 CT COLONOGRAPHY 1952 DXA SCAN 1952 FECAL OCCULT BLOOD TEST 1952 FIT Testing (1 year) 1952 TDAP/TD VACCINES (1 - Tdap) 1971 ZOSTER VACCINE (1 of 2) 2002 MAMMOGRAM 02/10/2017 02/10/2015, 02/07/2014 ANNUAL PHYSICAL 11/26/2017 HEPATITIS C SCREENING 11/26/2017 Pneumococcal Vaccine 65+ (1 of 1 - PCV) 2017 INFLUENZA VACCINE 05/07/2024 COVID-19 Vaccine (1 - 2023-25 season) 2024 Procedures Procedure Name Priority Date/Time Associated Diagnosis Comments MAMMO SCREENING BILATERAL W CAD Routine 02/10/2015 3:19 PM EDT from Last 3 Months or Most Recently Relevant to Health Maintenance Results * MAMMOGRAPHY SCREENING BILATERAL (02/10/2015 3:19 PM EDT) Anatomical Region Laterality Modality Breast Bilateral Mammography 02/10/2015 3:19 PM EDT Narrative 02/11/2015 10:40 AM EDT BILATERAL SCREENING MAMMOGRAM WITH TOMOSYNTHESIS HISTORY: ??No personal or significant family history of breast cancer and no new breast complaints. TECHNIQUE: ??Low dose full field digital breast tomosynthesis imaging was performed with 2D and 3D acquisitions. COMPARISON: 02/07/2014, 02/02/2013, 02/02/2012, and 10/29/2010. FINDINGS: There are scattered areas of fibroglandular density. The bilateral fibroglandular pattern is stable. There are a few coarse calcifications in the right breast. No new or suspicious fundings are identified. IMPRESSION- ??Benign screening mammogram. RECOMMENDATION: ??Continue annual screening mammography. BI-RADS CATEGORY II, BENIGN. CAD was utilized. The standard false-negative rate of mammography is between 10 and 25%. Complex patterns or increased breast density will markedly elevate the false-negative rate of mammography. ?? A letter, in lay terminology, with the results of this exam will be mailed to the patient. ? Reading Radiologist- PRADEEP REYNOSO ? Releasing Radiologist- PRADEEP REYNOSO ? Released Date Time- 02/11/15 1056 ? Foster Care Worker- Ruby Taran Nunez DO [facility] MAMMOGRAPHY ORDER YONATHAN Final Result from Last 3 Months or Most Recently Relevant to Health Maintenance Insurance PPO Care Teams Pastoral Assistant Relationship Specialty Start Date End Date Provider, [place] [address] PCP - General 11/26/17
--- OUTSIDE RECORDS SUMMARY | 2024-10-05 17:18 | XMS_ITS | Encounter Summary ---
Author Organization [facility] Address [address] [place] [address] Care Team Providers Care Clinical Sciences Professor Name Role Phone SayreIreneh Nick ROSS Primary Care Provider + [phone] Steven Marcelo MD Unavailable [phone] Jayla Ontiveros MD Unavailable [phone] Modesta Valadez RN Unavailable Unavailable Suzanne Mora APRN Primary Care Provider [phone] Encounter Details Date Type Department Care Team (Late st Contact Info) Description 03/19/2019 Transcribed Document [facility] [place] [facility] [place] [address] ProviderNimisha MD [address] [place] [address] Social History Tobacco Use Types Packs/Day Years Used Date Smoking Tobacco: Never Assessed Comments Unknown Sex and Gender Information Value Date Recorded Sex Assigned at Not on file Legal Sex Female 4:30 PM CDT Gender Identity Not on file Sexual Orientation Not on file documented as of this encounter Miscellaneous Notes * Cerner Conversion Note - Historical ProviderMD - 03/19/2019 4:16 PM CDT Event Note Entered On: 03/19/2019 16:16 EDT Performed On: 03/19/2019 16:16 EDT by SWATHI CASTILLO RN Event Note Event Date/Time : 03/19/2019 16:16 EDT Description of Event : pt report given to guicho Rodrigez CRYSTAL D, RN - 03/19/2019 16:16 EDT documented in this encounter Plan of Treatment Upcoming Encounters Date Type Department Care Team (Late st Contact Info) Description 01/15/2025 2:45 PM EDT Office Visit [facility] [address] [place] [id number] Jayla Ontiveros MD [address] [place], [place] [id number] 09/19/2025 2:30 PM EST Appointment [facility] Breast [facility] [address] [place] [address] documented as of this encounter Visit Diagnoses Not on filedocumented in this encounter Care Teams Clinical Sciences Professor Relationship Specialty Start Date End Date Komal Méndez APRN PCP - General Primary Care 09/07/22 01/03/24 Suzanne Mora, CODY [address] [place] [address] PCP - General Family Medicine 01/04/24 Steven Marcelo MD [address] [address] [place] [address] Surgeon General Surgery 09/07/22 Jayla Ontiveros MD [address] [facility] [address] [place] [address] Medical Oncologist Hematology and Oncology 09/07/22 Rory, Modesta Walsh RN Nurse Navigator 03/03/23 03/20/24 documented as of this encounter
--- OUTSIDE RECORDS SUMMARY | 2024-10-05 17:18 | XMS_ITS | Encounter Summary ---
Author Organization [facility] Address [address] [place] [id number] Care Team Providers Care Stamping Machine Operator Name Role Phone Provider, No Known Primary Care Provider Unavail able Reason for Visit * Reason Comments URI Encounter Details Date Type Department Care Team (Late st Contact Info) Description 11/26/2017 11:45 AM EST Office Visit [facility] [address] [facility] [address] [place] [address] Influenza A (Primary Dx) Social History Tobacco Use Types Packs/Day Years Used Date Smoking Tobacco: Never Comments No Sex and Gender Information Value [...] Mass Index 20.76 11/26/2017 11:44 AM EST documented in this encounter Patient Instructions * Patient Instructions* Valencia Booker APRN - 11/26/2017 11:55 AM EST Images from the original note were not included. Influenza, Adult Influenza, more commonly known as ???the flu,?? is a viral infection that primarily affects the respiratory tract. The respiratory tract includes organs that help you breathe, such as the lungs, nose, and throat. The flu causes many common cold symptoms, as well as a high fever and body aches. The flu spreads easily from person to person (is contagious). Getting a flu shot (influenza vaccination) every year is the best way to prevent influenza. What are the causes? Influenza is caused by a virus. You can catch the virus by: ?? Breathing in droplets from an infected person's cough or sneeze. ?? Touching something that was recently contaminated with the virus and then touching your mouth, nose, or eyes. What increases the risk? The following factors may make you more likely to get the flu: ?? Not cleaning your hands frequently with soap and water or alcohol-based hand mexican food maker hand. ?? Having close contact with many people during cold and flu season. ?? Touching your mouth, eyes, or nose without washing or sanitizing your hands first. ?? Not drinking enough fluids or not eating a healthy diet. ?? Not getting enough sleep or exercise. ?? Being under a high amount of stress. ?? Not getting a yearly (annual) flu shot. You may be at a higher risk of complications from the flu, such as a severe lung infection (pneumonia), if you: ?? Are over the age of 65. ?? Are . ?? Have a weakened disease-fighting system (immune system). You may have a weakened immune system if you: ?? Have HIV or AIDS. ?? Are undergoing chemotherapy. ?? Are??taking medicines that reduce the activity of (suppress) the immune system. ?? Have a long-term (chronic) illness, such as heart disease, kidney disease, diabetes, or lung disease. ?? Have a liver disorder. ?? Are obese. ?? Have anemia. What are the signs or symptoms? Symptoms of this condition typically last 4-10 days and may include: ?? Fever. ?? Chills. ?? Headache, body aches, or muscle aches. ?? Sore throat. ?? Cough. ?? Runny or congested nose. ?? Chest discomfort and cough. ?? Poor appetite. ?? Weakness or tiredness (fatigue). ?? Dizziness. ?? Nausea or vomiting. How is this diagnosed? This condition may be diagnosed based on your medical history and a physical exam. Your health careprovider may do a nose or throat swab test to confirm the diagnosis. How is this treated? If influenza is detected early, you can be treated with antiviral medicine that can reduce the length of your illness and the severity of your symptoms. This medicine may be given by mouth (orally) or through an IV tube that is inserted in one of your veins. The goal of treatment is to relieve symptoms by taking care of yourself at home. This may include taking ouap-kgh-vveybjx medicines, drinking plenty of fluids, and adding humidity to the air in your home. In some cases, influenza goes away on its own. Severe influenza or complications from influenza maybe treated in a hospital. Follow these instructions at home: ?? Take gcti-dwv-mvgdndj and prescription medicines only as told by your health care provider. ?? Use a cool mist humidifier to add humidity to the air in your home. This can make breathing easier. ?? Rest as needed. ?? Drink enough fluid to keep your urine clear or pale yellow. ?? Cover your mouth and nose when you cough or sneeze. ?? Wash your hands with soap and water often, especially after you cough or sneeze. If soap and water are not available, use hand mexican food maker hand. ?? Stay home from work or school as told by your health care provider. Unless you are visiting yourhealth care provider, try to avoid leaving home until your fever has been gone for 24 hours withoutthe use of medicine. ?? Keep all follow-up visits as told by your health care provider. This is important. How is this prevented? ?? Getting an annual flu shot is the best way to avoid getting the flu. You may get the flu shot inlate summer, fall, or winter. Ask your health care provider when you should get your flu shot. ?? Wash your hands often or use hand mexican food maker hand often. ?? Avoid contact with people who are sick during cold and flu season. ?? Eat a healthy diet, drink plenty of fluids, get enough sleep, and exercise regularly. Contact a health care provider if: ?? You develop new symptoms. ?? You have: ?? Chest pain. ?? Diarrhea. ?? A fever. ?? Your cough gets worse. ?? You produce more mucus. ?? You feel nauseous or you vomit. Get help right away if: ?? You develop shortness of breath or difficulty breathing. ?? Your skin or nails turn a bluish color. ?? You have severe pain or stiffness in your neck. ?? You develop a sudden headache or sudden pain in your face or ear. ?? You cannot stop vomiting. This information is not intended to replace advice given to you by your health care provider. Make sure you discuss any questions you have with your health care provider. Document Released: 10/21/2001 Document Revised: 03/31/2017 Document Reviewed: 08/17/2016 [employer] Interactive Patient Education ?? 2017 [employer] documented in this encounter Progress Notes * Chastity Levy APRN - 11/28/2017 5:03 PM ESTAddended by: CHASTITY LEVY V on: 11/28/2017 05:03 PM Modules accepted: Orders * Valencia Booker APRN - 11/26/2017 11:45 AM EST Latrell Carvajal is a 66 y.o. female. Pulse 108 Temp 100.2 ??F (37.9 ??C) Resp 18 Ht 171 cm (67.32 ) Wt 60.7 kg (133 lb 12.8 oz) LMP 11/07/2002 (Approximate) SpO2 97% BMI 20.76 kg/m2 Past Medical History: Diagnosis Date ??? Allergic ??? Hypertension ??? Kidney failure only one kidney, LEFT, It works only 50% ??? Tachycardia URI This is a new problem. The current episode started yesterday. The problem has been rapidly worsening. The maximum temperature recorded prior to her arrival was 100.4 - 100.9 F. Associated symptoms include abdominal pain, congestion, coughing, headaches, nausea, rhinorrhea and a sore throat. Pertinent negatives include no chest pain, diarrhea, dysuria, ear pain, joint pain, joint swelling, neck pain, rash or wheezing. The following portions of the patient's history were reviewed and updated as appropriate: allergies, current medications, past family history, past medical history, past social history, past surgicalhistory and problem list. Review of Systems HENT: Positive for congestion, rhinorrhea and sore throat. Negative for ear pain. Respiratory: Positive for cough. Negative for wheezing. Cardiovascular: Negative for chest pain. Gastrointestinal: Positive for abdominal pain and nausea. Negative for diarrhea. Genitourinary: Negative for dysuria. Musculoskeletal: Negative for joint pain and neck pain. Skin: Negative for rash. Neurological: Positive for headaches. Objective Physical Exam Constitutional: She appears well-developed and well-nourished. Non-toxic appearance. She has a sickly appearance. HENT: Head: Normocephalic and atraumatic. Nose: Mucosal edema and rhinorrhea present. Right sinus exhibits no maxillary sinus tenderness and no frontal sinus tenderness. Left sinus exhibits no maxillary sinus tenderness and no frontal sinus tenderness. Mouth/Throat: Uvula is midline. No tonsillar exudate. Eyes: Conjunctivae and lids are normal. Cardiovascular: Regular rhythm and normal heart sounds. Pulmonary/Chest: Effort normal. She has no wheezes. She has rhonchi (mild). She has no rales. Lymphadenopathy: She has no cervical adenopathy. Skin: Skin is warm and dry. Assessment/Plan Sheron was seen today for uri. Diagnoses and all orders for this visit: Influenza A - POC Influenza A / B Other orders - Discontinue: oseltamivir (TAMIFLU) 6 MG/ML suspension; Take 7.5 mL by mouth Every 12 (Twelve) Hours for 5 days. - promethazine-dextromethorphan (PROMETHAZINE-DM) 6.25-15 MG/5ML syrup; Take 5 mL by mouth 4 (Four)Times a Day As Needed for Cough for up to 5 days. - oseltamivir (TAMIFLU) 75 MG capsule; Take 1 capsule by mouth 2 (Two) Times a Day for 5 days. Results for orders placed or performed in visit on 11/26/17 POC Influenza A / B Result Value Ref Range Rapid Influenza A Ag pos Rapid Influenza B Ag neg Internal Control Passed Passed Lot Number [id number] Expiration Date 10/25 documented in this encounter Plan of Treatment Not on file documented as of this encounter Procedures Procedure Name Priority Date/Time Associated Diagnosis Comments POCT INFLUENZA A/B Routine 11/26/2017 11 :54 AM EST Influenza A documented in this encounter Results * (ABNORMAL) POC Influenza A / B (11/26/2017 11:54 AM EST) Rapid Influenza A Ag pos [facility] Rapid Influenza B Ag neg [facility] Internal Control Passed Passed [facility] Lot Number [id number] [facility] Expiration Date 10/25 [facility] Swab 11/26/2017 11:5 4 AM EST us Valencia Booker CREATIVE GURU POINT OF CARE TEST OR DERABLES Final Result [facility]
[address] [place] [address], [place] [phone] documented in this encounter Visit Diagnoses Diagnosis Influenza A- Primary Influenza with other respiratory manifestations documented in this encounter Care Teams Stamping Machine Operator Relationship Specialty Start Date End Date Provider, No Known [facility] [place] [address] PCP - General 11/26/17 documented as of this encounter
--- OUTSIDE RECORDS SUMMARY | 2024-10-05 17:18 | XMS_ITS | Encounter Summary ---
Author Organization [facility] Address [address] [place] [address] Care Team Providers Care Gas Roller Operator Name Role Phone Irene Méndezh Nick ROSS Primary Care Provider + [phone] Steven Marcelo MD Unavailable [phone] Jayla Ontiveros MD Unavailable [phone] Modesta Valadez RN Unavailable Unavailable Suzanne Mora APRN Primary Care Provider [phone] Encounter Details Date Type Department Care Team (Late st Contact Info) Description 11/20/2018 Transcribed Document [facility] [place] Family Medicine [facility] [place] [address] ProviderNimisha MD [address] [place] [address] Social History Tobacco Use Types Packs/Day Years Used Date Smoking Tobacco: Never Assessed Comments Unknown Sex and Gender Information Value Date Recorded Sex Assigned at Not on file Legal Sex Female 4:30 PM CDT Gender Identity Not on file Sexual Orientation Not on file documented as of this encounter Miscellaneous Notes * Cerner Conversion Note - Historical ProviderMD - 11/20/2018 11:11 AM AUTO PARTS CLERK ED Assessment Entered On: 11/20/2018 11:57 EST Performed On: 11/20/2018 11:15 EST by Coleen Escobar, GLASS BENDER Quick Look Assessment Level of Consciousness : Alert, Awake Affect/Behavior : Appropriate, Calm, Cooperative Orientation : Oriented x 4 Skin Temperature : Warm Skin Description : Dry Coleen Escobar RN - 11/20/2018 11:56 EST ED General-Functional Assess Information Obtained From : Patient Preferred Communication Mode : Verbal Communication Barrier : None Primary Language : Ghanaian Any Spiritual/Cultural Needs or Requests : No Currently in Unsafe Situation : No Coleen Escobar RN - 11/20/2018 11:56 EST Social Habits Smoking Status : Never (less than 100 in lifetime; none in last 30 days) Smokeless Tobacco Status : Never Desires Tobacco Cessation Calc : 0 Coleen Escobar RN - 11/20/2018 11:56 EST Social History (As Of: 11/20/2018 11:57:03 EST) Tobacco: Smoking Status Never smoker. (Last Updated: 11/04/2017 11:51:31 EST by MRAISELA JULIO, RN) Alcohol: Alcohol Use History No. (Last Updated: 08/21/2018 21:01:58 EDT by JAIRON HUMPHRIES RN) Substance Abuse: Drug Use Hx: No. Use in Last 12 Months: No. (Last Updated: 11/04/2017 11:51:34 EST by MARISELA JULIO, RN) Nutrition/Health: Caffeine intake amount: 4. (Last Updated: 01/01/2014 13:30:23 EST by BLAKE HERMAN RN) EENT Assessment EENT Assessment WDL : Coleen Yoo RN - 11/20/2018 11:56 EST Cardiovascular ASMT, ED Cardiovascular Assessment WDL : Coleen Blair RN - 11/20/2018 11:56 EST Respiratory Respiratory Assessment WDL : Coleen Blair RN - 11/20/2018 11:56 EST Gastrointestinal ED Gastrointestinal Assessment WDL : [facility] with exceptions Gastrointestinal Symptoms : Abdominal pain, Nausea Coleen Escobar RN - 11/20/2018 11:56 EST Genitourinary Assessment, ED Genitourinary Assessment WDL : Coleen Yoo RN - 11/20/2018 11:56 EST Musculoskeletal Musculoskeletal Assessment WDL : Coleen Yoo RN - 11/20/2018 11:56 EST Integumentary Assessment Integumentary Assessment WDL : Coleen Yoo RN - 11/20/2018 11:56 EST Neurologic ASMT, ED Neurologic Assessment WDL : WDL Coleen Escobar RN - 11/20/2018 11:56 EST Electronically signed by Lili, [facility] Conversion Harness Brusher Cerner at 02/22/2023 12:07 PM CDT documented in this encounter Plan of Treatment Upcoming Encounters Date Type Department Care Team (Late st Contact Info) Description 01/15/2025 2:45 PM EDT Office Visit [place] [facility] - [facility] [address] [place] [phone] Jayla Ontiveros MD [address] [facility] [address] [place], [place] [id number] 09/19/2025 2:30 PM EST Appointment [facility] Breast [facility] [address] [facility] [address] [place] [address] documented as of this encounter Visit Diagnoses Not on filedocumented in this encounter Care Teams Gas Roller Operator Relationship Specialty Start Date End Date Komal Méndez APRN PCP - General Primary Care 09/07/22 01/03/24 Suzanne Mora APRN [address] [facility] [address] [place] [address] PCP - General Family Medicine 01/04/24 Steven Marcelo MD [address] [facility] [address] [place] [address] Surgeon General Surgery 09/07/22 Jayla Ontiveros MD [address] [facility] [address] [place], [place] [id number] Medical Oncologist Hematology and Oncology 09/07/22 Modesta Valadez, RN Nurse Navigator 03/03/23 03/20/24 documented as of this encounter
--- OUTSIDE RECORDS SUMMARY | 2024-10-05 17:18 | XMS_ITS | Encounter Summary ---
Author Organization [email or web address] Init [employer]atives Address [address] [place] [address] Care Team Providers Care Insole Coverer Name Role Phone Komal Méndez Nick ROSS Primary Care Provider + [phone] Steven Marcelo MD Unavailable [phone] Jayla Ontiveros MD Unavailable [phone] Modesta Valadez RN Unavailable Unavailable Encounter Details Date Type Department Care Team (Late st Contact Info) Description 11/20/2018 Historic Encounter [address] [address] ProviderLamin Historical Social History Tobacco [...] Description 01/15/2025 2:45 PM EDT Office Visit [facility] - [address] [place] [address] Jayla Ontiveros MD [address] [facility] [address] [place], [place] [id number] 09/19/2025 2:30 PM EST Appointment [facility] Breast [facility] [address] [facility] [address] [place] [address] documented as of this encounter Procedures Procedure Name Priority Date/Time Associated Diagnosis Comments URINALYSIS MICROSCOPIC ([facility] DATA CONV) Routine 11/20/2018 11:57 AM EST documented in this encounter Results * (ABNORMAL) URINALYSIS MICROSCOPIC ([facility] DATA CONV) (11/20/2018 11:57 AM EST) Correlate UA Correlated Correlated 11/20/2018 5:26 PM EST Ur RBC None Seen None Seen 11/20/2018 5:26 PM EST Ur WBC 0-2 None Seen /HPF 11/20/2018 5:26 PM EST Ur Bacteria Trace(A) None Seen 11/20/2018 5:26 PM EST Ur Squamous Epithelial Cells 2-5(A) /HPF 11/20/2018 5:26 PM EST 11/20/2018 11:5 7 AM EST 11/20/2018 5:17 PM EST Narrative [facility] - 11/20/2018 5:26 PM EST Added by Discern Expert [facility] Historical Provider URINE ORDERABLES Final Result Performing Organization Address City/State/[facility] Co de Phone Number [facility] [address] [phone] documented in this encounter Visit Diagnoses Not on filedocumented in this encounter Care Teams Insole Coverer Relationship Specialty Start Date End Date Komal Méndez APRN PCP - General Primary Care 09/07/22 01/03/24 Steven Marcelo MD [address] [facility] [address] [place] [address] Surgeon General Surgery 09/07/22 Jayla Ontiveros MD [address] [place] [address] Medical Oncologist Hematology and Oncology 09/07/22 Rory, Modesta Walsh RN Nurse Navigator 03/03/23 03/20/24 documented as of this encounter
--- OUTSIDE RECORDS SUMMARY | 2024-10-05 17:18 | XMS_ITS | Encounter Summary ---
Author Organization [email or web address] Address [address] [place] [address] Care Team Providers Care News Camera Operator Name Role Phone Irene Méndezh Nick ROSS Primary Care Provider + [phone] Steven Marcelo MD Unavailable [phone] Jayla Ontiveros MD Unavailable [phone] Modesta Valadez RN Unavailable Unavailable Suzanne Mora APRN Primary Care Provider [phone] Encounter Details Date Type Department Care Team (Late st Contact Info) Description 03/19/2019 Transcribed Document [facility] [place] [address] ProviderNimisha MD [address] [place] [address] Social History Tobacco Use Types Packs/Day Years Used Date Smoking Tobacco: Never Assessed Comments Unknown Sex and Gender Information Value Date Recorded Sex Assigned at Not on file Legal Sex Female 4:30 PM CDT Gender Identity Not on file Sexual Orientation Not on file documented as of this encounter Miscellaneous Notes * Cerner Conversion Note - Historical ProviderMD - 03/19/2019 2:24 PM CDT Nursing Discharge Summary Entered On: 03/19/2019 14:25 EDT Performed On: 03/19/2019 14:24 EDT by SWATHI CASTILLO, vortex operator Documentation Patient Disposition, General : Discharge Discharge To : Home with ambulatory/outpatient follow-up Mode Of Departure, General Discharge : Private vehicle Accompanied By, Discharge : Daughter IV Discontinued : Yes Medications Given to Patient : Yes Personal Belongings With Patient : Yes Prescriptions Given to Patient : No Discharge Instructions Reviewed With, Opportunity For Questions Given : Patient, Daughter Patient Education Completed : Yes Teaching Method : Demonstration, Explanation Teaching Evaluation : Returns demonstration, Verbalizes understanding SWATHI CASTILLO, RN - 03/19/2019 14:24 EDT Electronically signed by [facility], [facility] Conversion Novelty Twister Tender Cerner at 02/22/2023 12:04 PM CDT documented in this encounter Plan of Treatment Upcoming Encounters Date Type Department Care Team (Late st Contact Info) Description 01/15/2025 2:45 PM EDT Office Visit [facility] - [address] [place] [address] Jayla Ontiveros MD [address] [place] [address] [address] [place], [place] [id number] 09/19/2025 2:30 PM EST Appointment [facility] Breast [facility] [address] [facility] [address] [place] [address] documented as of this encounter Visit Diagnoses Not on filedocumented in this encounter Care Teams News Camera Operator Relationship Specialty Start Date End Date Komal Méndez APRN PCP - General Primary Care 09/07/22 01/03/24 Suzanne Mora APRN [address] [place] [address] PCP - General Family Medicine 01/04/24 Steven Marcelo MD [address] [employer] [facility] [address] [place] [address] Surgeon General Surgery 09/07/22 Jayla Ontiveros MD [address] [facility] [address] [place], [place] [id number] Medical Oncologist Hematology and Oncology 11/1/22 Case, Modesta C, RN Nurse Navigator 03/03/23 03/20/24 documented as of this encounter
--- OUTSIDE RECORDS SUMMARY | 2024-10-05 17:18 | XMS_ITS | Encounter Summary ---
Author Organization [employer] Address [address] [place] [address] Care Team Providers Care Director Corporate Sales Name Role Phone Irene Méndezh Nick ROSS Primary Care Provider + [phone] Steven Marcelo MD Unavailable [phone] Jayla Ontiveros MD Unavailable [phone] Modesta Valadez RN Unavailable Unavailable Suzanne Mora APRN Primary Care Provider [phone] Encounter Details Date Type Department Care Team (Late st Contact Info) Description 03/19/2019 Transcribed Document [facility] [place] [facility] [place] [address] ProviderNimisha MD [address] [place] [address] Social History Tobacco Use Types Packs/Day Years Used Date Smoking Tobacco: Never Assessed Comments Unknown Sex and Gender Information Value Date Recorded Sex Assigned at Not on file Legal Sex Female 4:30 PM CDT Gender Identity Not on file Sexual Orientation Not on file documented as of this encounter Miscellaneous Notes * Cerner Conversion Note - Nimisha ProviderMD - 03/19/2019 5:02 PM CDT Stroke/Warfarin Instructions Entered On: 03/19/2019 17:02 EDT Performed On: 03/19/2019 17:02 EDT by AUGUSTUS FERGUSON RN Stroke/Warfarin Instructions Stroke/TIA Discharge Ins : N/A Warfarin Discharge Ins : N/A AUGUSTUS FERGUSON RN - 03/19/2019 17:02 EDT Electronically signed by L[facility] Conversion Design Technology Professor Cerner at 02/22/2023 12:06 PM CDT documented in this encounter Plan of Treatment Upcoming Encounters Date Type Department Care Team (Late st Contact Info) Description 01/15/2025 2:45 PM EDT Office Visit [facility] - [place] [address] [place] [address] Jayla Ontiveros MD [address] [place] [address] [place] [address] 09/19/2025 2:30 PM EST Appointment [facility] Breast [facility] [address] [place] [address] documented as of this encounter Visit Diagnoses Not on filedocumented in this encounter Care Teams Director Corporate Sales Relationship Specialty Start Date End Date Komal Méndez APRN PCP - General Primary Care 09/07/22 01/03/24 Suzanne Mora, DAMAGE CUTTER [address] [place] [address] PCP - General Family Medicine 01/04/24 Steven Marcelo MD [address] [place] [address] Surgeon General Surgery 09/07/22 Jayla Ontiveros MD [address] [place] [address] [place], [place] [id number] Medical Oncologist Hematology and Oncology 09/07/22 Rory, Modesta Walsh RN Nurse Navigator 03/03/23 03/20/24 documented as of this encounter
--- OUTSIDE RECORDS SUMMARY | 2024-10-05 17:18 | XMS_ITS | Encounter Summary ---
Author Organization [employer] Address [address] [place] [address] Care Team Providers Care Client Support Professional Name Role Phone Irene Méndezh Nick ROSS Primary Care Provider + [phone] Steven Marcelo MD Unavailable [phone] Jayla Ontiveros MD Unavailable [phone] Modesta Valadez RN Unavailable Unavailable Suzanne Mora APRN Primary Care Provider [phone] Encounter Details Date Type Department Care Team (Late st Contact Info) Description 11/04/2019 Transcribed Document [facility] [place] Medicine [facility] [place] [address] ProviderNimsiha MD [address] [place] [address] Social History Tobacco Use Types Packs/Day Years Used Date Smoking Tobacco: Never Assessed Comments Unknown Sex and Gender Information Value Date Recorded Sex Assigned at Not on file Legal Sex Female 4:30 PM CDT Gender Identity Not on file Sexual Orientation Not on file documented as of this encounter Miscellaneous Notes * Cerner Conversion Note - Nimisha ProviderMD - 11/04/2019 5:07 PM [facility] ED Assessment Entered On: 11/04/2019 18:54 EST Performed On: 11/04/2019 18:53 EST by Chaya Thrasher RN ED Quick Look Assessment Level of Consciousness : Awake Affect/Behavior : Calm, Cooperative Orientation : Oriented x 4 Skin Temperature : Warm Chaya Thrasher RN - 11/04/2019 18:53 EST ED General-Functional Assess Information Obtained From : Patient Preferred Communication Mode : Verbal Communication Barrier : None Primary Language : Welsh Any Spiritual/Cultural Needs or Requests : No Currently in Unsafe Situation : No Chaya Thrasher RN - 11/04/2019 18:53 EST Social Habits Smoking Status : Never (less than 100 in lifetime; none in last 30 days) Smokeless Tobacco Status : Never Desires Tobacco Cessation Calc : 0 Chaya Thrasher RN - 11/04/2019 18:53 EST Social History (As Of: 11/04/2019 18:54:34 EST) Tobacco: Smoking Status Never smoker. (Last [...] 01/01/2014 13:30:23 EST by BLAKE HERMAN RN) Gastrointestinal ED Gastrointestinal Assessment WDL : WDL with exceptions Gastrointestinal Symptoms : Abdominal pain, Nausea Chaya Thrasher RN - 11/04/2019 18:53 EST Electronically signed by Cristiane Pearson Conversion Energy Systems Laboratory Director Cerner at 02/22/2023 11:57 AM CDT documented in this encounter Plan of Treatment Upcoming Encounters Date Type Department Care Team (Late st Contact Info) Description 01/15/2025 2:45 PM EDT Office Visit [facility] - [place] [address] [place] [address] Jayla Ontiveros MD [address] [place], [place] [id number] 09/19/2025 2:30 PM EST Appointment [address] [place] [address] documented as of this encounter Visit Diagnoses Not on filedocumented in this encounter Care Teams Client Support Professional Relationship Specialty Start Date End Date Komal Méndez, SPEECH LANGUAGE SPECIALIST PCP - General Primary Care 09/07/22 01/03/24 Suzanne Mora, CODY [address] [place] [address] PCP - General Family Medicine 01/04/24 Steven Marcelo MD [address] [place] [address] Surgeon General Surgery 09/07/22 Jayla Ontiveros MD [address] [facility] [address] [place] [address] Medical Oncologist Hematology and Oncology 09/07/22 Rory, Modesta Walsh RN Nurse Navigator 03/03/23 03/20/24 documented as of this encounter
--- OUTSIDE RECORDS SUMMARY | 2024-10-05 17:18 | XMS_ITS | Encounter Summary ---
Author Organization [employer] Address [address] [place] [address] Care Team Providers Care Pearl Diver Name Role Phone Komal Méndez CODY Primary Care Provider + [phone] Steven Marcelo MD Unavailable [phone] Jayla Ontiveros MD Unavailable [phone] Encounter Details Date Type Department Care Team (Late st Contact Info) Description 03/19/2019 Historic Encounter [facility] 1 [place] [address] Jaun Browne MD [facility] [place] [address] Social History Tobacco Use Types Packs/Day Years [...] Description 01/15/2025 2:45 PM EDT Office Visit [facility] - [place] [address] [place] [address] Jayla Ontiveros MD [address] [place] [address] 09/19/2025 2:30 PM EST Appointment [facility] [address] [facility] [address] [place] [address] documented as of this encounter Procedures Procedure Name Priority Date/Time Associated Diagnosis Comments XR CHEST 1 VIEW PORTABLE / BEDSIDE STAT 03/19/2019 3:34 PM EDT CHEM8+ POC Routine 03/19/2019 11:49 AM EDT PLATELET COUNT Routine 03/19/2019 11:45 AM EDT documented in this encounter Results * XR chest 1 view portable / bedside (03/19/2019 3:34 PM EDT) Anatomical Region Laterality Modality X-Ray 03/19/2019 3:34 PM EDT Narrative 03/19/2019 8:59 PM EDT PORTABLE CHEST ??03/19/2019 2:22 PM HISTORY: Post pacemaker placement COMPARISON: ??October 2017 FINDINGS: A pacemaker overlies the left chest. The cardiac silhouette is normal in size. The mediastinal and hilar contours are unremarkable. There is stable apical pleural thickening. There is no pneumothorax. There is no effusion, edema, or infiltrate. The visualized osseous structures demonstrate no acute abnormalities. IMPRESSION: No acute cardiopulmonary process. ? Images reviewed, interpreted, and dictated by Dr. Jaun Browne. Transcribed by Kristy Vazquez (Jami). I have personally viewed, interpreted and dictated the examination. I have read and agree with the above final transcribed report. Procedure Note Jaun Browne MD - 02/22/2023 PORTABLE CHEST 03/19/2019 2:22 PM HISTORY: Post pacemaker placement COMPARISON: October 2017 FINDINGS: A pacemaker overlies the left chest. The cardiac silhouette is normal in size. The mediastinal and hilar contours are unremarkable. There is stable apical pleural thickening. There is no pneumothorax. There is no effusion, edema, or infiltrate. The visualized osseous structures demonstrate no acute abnormalities. IMPRESSION: No acute cardiopulmonary process. Images reviewed, interpreted, and dictated by Dr. Jaun Browne. Transcribed by Kristy Vazquez (R). I have personally viewed, interpreted and dictated the examination. I have read and agree with the above final transcribed report. us Jaun Browne MD IMG DIAGNOSTIC IMAGING ORDERABL ES Final Result * (ABNORMAL) Chem8+ POC (03/19/2019 11:49 AM EDT) Sodium POC 145 138 - 146 mmol/L 03/19/2019 3:[address] [facility] Potassium POC 3.9 3.5 - 4.9 mmol/L 03/19/2019 3:[address] [facility] Chloride POC 104 98 - 109 mmol/L 03/19/2019 3:[address] [facility] CO2 POC 28.0 24.0 - 29.0 mmol/L 03/19/2019 3:[address] [facility] Anion Gap POC 18.0 10.0 - 20.0 mmol/L 03/19/2019 3:[address] [facility] Ca Ionized POC 1.25 1.12 - 1.32 mmol/L 03/19/2019 3:[address] [facility] Glucose POC 90 70 - 105 mg/dL 03/19/2019 3:[address] [facility] BUN POC 17 8 - 26 mg/dL 03/19/2019 3:[address] [facility] Creatinine POC 1.2 0.6 - 1.3 mg/dL 03/19/2019 3:[address] [facility] eGFR 54(L) >=60 mL/min/1. 73m2 03/19/2019 9:[address] [facility] eGFR NonAfrican 45(L) >=60 mL/min/1. 73m2 03/19/2019 9:[address] [facility] Hemoglobin POC 13.9 12.0 - 17.0 Gram/dL 03/19/2019 3:[address] [facility] Hematocrit POC 41.0 38.0 - 51.0 % 03/19/2019 3:[address] [facility] Dimension Warehouse Supervisor [id number] 03/19/2019 3:[address] [facility] Device SN [id number] 03/19/2019 3:[address] [facility] Blood 03/19/2019 11:4 9 AM EDT 03/19/2019 9:20 PM EDT [facility] Historical Provider POINT OF CARE TEST ORDE RABLES Final Result Performing Organization Address City/[facility]/ZIP Co de Phone Number [facility] [address] [phone] * Platelet count (03/19/2019 11:45 AM EDT) Platelet Count 197 163 - 369 K/uL 03/19/2019 3:58 PM EDT Blood 03/19/2019 11:4 5 AM EDT 03/19/2019 3:54 PM EDT [facility] Provider LAB BLOOD ORDERABLES Fi nal Result Performing Organization Address City/[facility]/ZIP Co de Phone Number [facility] [address] [phone] documented in this encounter Visit Diagnoses Not on filedocumented in this encounter Care Teams Pearl Diver Relationship Specialty Start Date End Date Komal Méndez APRN PCP - General Primary Care 09/07/22 01/03/24 Steven Marcelo MD [address] [facility] [address] [place] [address] Surgeon General Surgery 09/07/22 Jayla Ontiveros MD [address] [facility] [address] [place] [address] Medical Oncologist Hematology and Oncology 09/07/22 documented as of this encounter
--- OUTSIDE RECORDS SUMMARY | 2024-10-05 17:18 | XMS_ITS | Encounter Summary ---
Author Organization [email or web address] Address [address] [place] [address] Care Team Providers Care Cabinet Maker Name Role Phone Irene Méndezh Nick RSOS Primary Care Provider + [phone] Steven Marcelo MD Unavailable [phone] Jayla Ontiveros MD Unavailable [phone] Modesta Valadez RN Unavailable Unavailable Suzanne Mora APRN Primary Care Provider [phone] Encounter Details Date Type Department Care Team (Late st Contact Info) Description 11/20/2018 Transcribed Document [facility] Family Medicine [place] [address] ProviderNimisha MD [address] [place] [address] Social History Tobacco Use Types Packs/Day Years Used Date Smoking Tobacco: Never Assessed Comments Unknown Sex and Gender Information Value Date Recorded Sex Assigned at Not on file Legal Sex Female 4:30 PM CDT Gender Identity Not on file Sexual Orientation Not on file documented as of this encounter Miscellaneous Notes * Cerner Conversion Note - Historical ProviderMD - 11/20/2018 2:54 PM OPERATIONS RESEARCH MANAGER ED Discharge Entered On: 11/20/2018 14:55 EST Performed On: 11/20/2018 14:54 EST by Coleen Escobar, hearth feeder Process Patient Disposition : Discharge Personal Belongings With Patient : Yes Patient Education Completed : Yes Teaching Evaluation : Verbalizes understanding IV Discontinued : Yes Nursing Documentation Completed : Yes Coleen Escobar RN - 11/20/2018 14:54 EST ED Discharge Discharge To : Home with ambulatory/outpatient follow-up Mode Of Departure : Ambulatory Accompanied By : Unaccompanied Discharge Instructions Reviewed With, Opportunity For Questions Given : Patient Prescriptions Given to Patient : Yes Number of Prescriptions Given : 2 Coleen Escobar RN - 11/20/2018 14:54 EST Electronically signed by [facility], [facility] Conversion Ticket Clerk Cerner at 02/22/2023 12:02 PM CDT documented in this encounter Plan of Treatment Upcoming Encounters Date Type Department Care Team (Late st Contact Info) Description 01/15/2025 2:45 PM EDT Office Visit [facility] - [facility] [address] [facility] [address] [place] [address] [place] [address] [place] [address] [address] [place], [place] [id number] 09/19/2025 2:30 PM EST Appointment [facility] Breast [facility] [address] [place] [address] documented as of this encounter Visit Diagnoses Not on filedocumented in this encounter Care Teams Cabinet Maker Relationship Specialty Start Date End Date Komal Méndez APRN PCP - General Primary Care 09/07/22 01/03/24 Suzanne Mora, CODY [address] [place] [address] PCP - General Family Medicine 01/04/24 Steven Marcelo MD [address] [place] [address] Surgeon General Surgery 09/07/22 Jayla Ontiveros MD [address] [facility] [address] [place], [place] [id number] Medical Oncologist Hematology and Oncology 09/07/22 Case, Modesta Walsh RN Nurse Navigator 03/03/23 03/20/24 documented as of this encounter
--- OUTSIDE RECORDS SUMMARY | 2024-10-05 17:18 | XMS_ITS | Encounter Summary ---
Author Organization [employer] Address [address] [place] [address] Care Team Providers Care Inside Outside Sales Representative Name Role Phone Komal Méndez Nick ROSS Primary Care Provider + [phone] Steven Marcelo MD Unavailable [phone] Jayla Ontiveros MD Unavailable [phone] Modesta Valadez RN Unavailable Unavailable Encounter Details Date Type Department Care Team (Late st Contact Info) Description 11/20/2018 Historic Encounter [address] [address] ProviderLamin Historical Social History Tobacco [...] Description 01/15/2025 2:45 PM EDT Office Visit [facility] - [place] [address] [place] [address] Jayla Ontiveros MD [address] [facility] [address] [place] [id number] 09/19/2025 2:30 PM EST Appointment [facility] Breast [facility] [address] [place] [address] documented as of this encounter Procedures Procedure Name Priority Date/Time Associated Diagnosis Comments LIPASE Routine 11/20/2018 11:41 AM EST documented in this encounter Results * (ABNORMAL) LIPASE (11/20/2018 11:41 AM EST) Lipase Level 591(H) 73 - 393 Units/Liter 11/20/2018 5:22 PM EST Blood 11/20/2018 11:4 1 AM EST 11/20/2018 4:48 PM EST [facility] Historical [facility] Final Result Performing Organization Address City/State/[facility] Co de Phone Number [facility] [address] [phone] documented in this encounter Visit Diagnoses Not on filedocumented in this encounter Care Teams Inside Outside Sales Representative Relationship Specialty Start Date End Date Komal MéndezCODY PCP - General Primary Care 09/07/22 01/03/24 Steven Marcelo MD [address] [facility] [address] [place] [address] Surgeon General Surgery 09/07/22 Jayla Ontiveros MD [address] [facility] [address] [place] [address] Medical Oncologist Hematology and Oncology 09/07/22 Rory, Modesta Walsh, RN Nurse Navigator 03/03/23 03/20/24 documented as of this encounter
--- OUTSIDE RECORDS SUMMARY | 2024-10-05 17:18 | XMS_ITS | Encounter Summary ---
Author Organization [employer] Address [address] [place] [address] Care Team Providers Care Cotton Washer Name Role Phone Irene Méndezh Nick ROSS Primary Care Provider + [phone] Steven Marcelo MD Unavailable [phone] Oumou Ontiveros MD Unavailable [phone] Modesta Valadez RN Unavailable Unavailable Suzanne Mora APRN Primary Care Provider [phone] Encounter Details Date Type Department Care Team (Late st Contact Info) Description 11/04/2019 Transcribed Document [facility] [place] [facility] [address] ProviderNimisha MD [address] [place] [address] Social History Tobacco Use Types [...] - Nimisha ProviderMD - 11/04/2019 5:07 PM TELEMEDICINE PHYSICIAN ED Triage Entered On: 11/04/2019 18:05 EST Performed On: 11/04/2019 18:03 EST by OUMOU SIMS RN ED Triage Across the Room Chief Complaint : starting tuesday n/v/d for 3 days. c/o lower back pain. Triage Date/Time : 11/04/2019 18:03 EST OUMOU SIMS RN - 11/04/2019 18:03 EST DCP GENERIC CODE Tracking Acuity : 3 - Urgent Tracking Group : [facility] ED [facility] OUMOU SIMS RN - 11/04/2019 18:03 EST Need Lab Labels Now : No Mode of Arrival : Ambulatory Transported to ED by : Private vehicle To Room Via : Ambulate Accompanied By : Unaccompanied ED Vital Signs : Document Height & Weight : Document ED Allergies : Document ED Reason for Visit : Document Tetanus Immunization : Unknown OUMOU SIMS RN - 11/04/2019 18:03 EST Infectious Disease History Infectious Disease History : Influenza, Measles, Mumps Fever/Chills Last 48 Hours : No Travel To Regions with Travel Advisories : No Travel Outside [place].S. Within Last 30 Days : No Contact With Traveler to Advisory Region : No Tuberculosis Symptoms : None OUMOU SIMS RN - 11/04/2019 18:03 EST Vital Signs ED Temperature Source : Tympanic Temperature Mode : Fahrenheit Temperature, Fahrenheit : 98.4 Deg F ED Pain : Yes Clinical Temperature, C : 36.9 Deg C Oxygen Therapy Mode : Room air Peripheral Pulse Rate : 72 bpm Respiratory Rate : 20 Breaths/Min Blood Pressure Location : Arm, left upper Blood Pressure Source : Non-Invasive BP Device Systolic Blood Pressure : 158 mmHg (HI) Diastolic Blood Pressure : 93 mmHg (HI) Oxygen Saturation : 98 % OUMOU SIMS RN - 11/04/2019 18:03 EST Allergy (As Of: 11/04/2019 18:05:23 EST) Allergies (Active) No Known Medication Allergies Estimated Onset Date: Unspecified ; Created By: JAIRON HUMPHRIES RN; Reaction Status: Active ; Category: Drug ; Substance: No Known Medication Allergies ; Type: Allergy ; Updated By: JAIRON HUMPHRIES RN; Reviewed Date: 11/04/2019 18:04 EST Diagnosis Control ED (As Of: 11/04/2019 18:05:23 EST) Problems(Active) At risk for sleep apnea (IMO :86722840 ) Name of Problem: At risk for sleep apnea ; Recorder: SYSTEM, SYSTEM; Confirmation: Confirmed ; Classification: Medical ; Code: [id number] ; Last Updated: 03/19/2019 11:40 EDT ; Life Cycle Date: 03/19/2019 ; Life Cycle Status: Active ; Vocabulary: IMO Atrial fibrillation (SNOMED CT :86149557 ) Name of Problem: Atrial fibrillation ; Recorder: MARISELA JULIO RN; Confirmation: Confirmed ; Classification: Medical ; Code: 33018826 ; Contributor System: FirstRainChart ; Last Updated: 11/04/2017 11:49 EST ; Life Cycle Date: 11/04/2017 ; Life Cycle Status: Active ; Vocabulary: SNOMED CT High blood pressure (SNOMED CT :18070665 ) Name of Problem: High blood pressure ; Recorder: BLAKE HERMAN RN; Confirmation: Confirmed ; Classification: Medical ; Code: 18573250 ; Contributor System: FirstRainChart ; Last Updated: 04/18/2014 19:26 EDT ; Life Cycle Date: 01/01/2014 ; Life Cycle Status: Active ; Vocabulary: SNOMED CT Kidney disease (SNOMED CT :979020134 ) Name of Problem: Kidney disease ; Recorder: MARISELA JULIO RN; Confirmation: Confirmed ; Classification: Medical ; Code: [id number] ; Contributor System: PowerChart ; Last Updated: 11/04/2017 11:50 EST ; Life Cycle Date: 11/04/2017 ; Life Cycle Status: Active ; Vocabulary: SNOMED CT Diagnoses(Active) Diarrhea Date: 11/04/2019 ; Diagnosis Type: Reason For Visit ; Confirmation: Complaint of ; Clinical Dx: Diarrhea ; Classification: Medical ; Clinical Service: Emergency medicine ; Code: PNED ; Probability: 0 ; Diagnosis Code: [id number] Vomiting Date: 11/04/2019 ; Diagnosis Type: Reason For Visit ; Confirmation: Complaint of ; Clinical Dx: Vomiting ; Classification: Medical ; Clinical Service: Emergency medicine ; Code: PNED ; Probability: 0 ; Diagnosis Code: [id number] ED Height and Weight Height Source : Measured Height Entry Format : [place] Height, Feet : 5 ft(Converted to: 152 cm, 60 Inch) Height, Inches : 7 Inch(Converted to: 0 ft 7 Inch, 17.78 cm) Clinical Height : 170.18 cm Weight Source, ED : Standing scale Weight Entry Format : [place] Weight, Pounds : 140 lb Clinical Dosing Weight : 63.64 kg Body Surface Area (BSA) : 1.74 m2 Body Mass Index : 22 kg/m2 [place] Body Weight (IBW) : 61.16 kg OUMOU SIMS RN - 11/04/2019 18:03 EST Pain Assessment Pain Assessment : Initial assessment Pain Scale Used : 0-10 Scale OUMOU SIMS RN - 11/04/2019 18:03 EST Pain Scale Intensity : 3 OUMOU SIMS RN - 11/04/2019 18:03 EST Image 4 - Images currently included in the form version of this document have not been included in the text rendition version of the form. documented in this encounter Plan of Treatment Upcoming Encounters Date Type Department Care Team (Late st Contact Info) Description 01/15/2025 2:45 PM EDT Office Visit [facility] - [place] [address] [place] [address] Oumou Ontiveros MD [address] [facility] [address] [place] [address] 09/19/2025 2:30 PM EST Appointment [facility] Breast [facility] [address] [facility] [address] [place] [address] documented as of this encounter Visit Diagnoses Not on filedocumented in this encounter Care Teams Cotton Washer Relationship Specialty Start Date End Date Komal Méndez APRN PCP - General Primary Care 09/07/22 01/03/24 Suzanne Mora APRN [address] [facility] [address] [place] [address] PCP - General Family Medicine 01/04/24 Steven Marcelo MD [address] [facility] [address] [place] [address] Surgeon General Surgery 09/07/22 Oumou Ontiveros MD [address] [place] [address] Medical Oncologist Hematology and Oncology 09/07/22 Rory, Modesta Walsh RN Nurse Navigator 03/03/23 03/20/24 documented as of this encounter
--- OUTSIDE RECORDS SUMMARY | 2024-10-05 17:18 | XMS_ITS | Encounter Summary ---
Author Organization [employer] Address [address] [place] [address] Care Team Providers Care Hydrator Operator Name Role Phone Komal Méndez Nick ROSS Primary Care Provider + [phone] Steven Marcelo MD Unavailable [phone] Jayla Ontiveros MD Unavailable [phone] Modesta Valadez RN Unavailable Unavailable Encounter Details Date Type Department Care Team (Late st Contact Info) Description 11/20/2018 Historic Encounter [address] [address] ProviderLamin Historical Social History Tobacco [...] Description 01/15/2025 2:45 PM EDT Office Visit [facility] - [place] [address] [place] [address] Jayla Ontiveros MD [address] [facility] [address] [place] [address] 09/19/2025 2:30 PM EST Appointment [facility] [address] [address] [place] [address] documented as of this encounter Procedures Procedure Name Priority Date/Time Associated Diagnosis Comments CBC (HEMOGRAM ONLY) Routine 11/20/2018 1 1:41 AM EST documented in this encounter Results * CBC (Hemogram only) (11/20/2018 11:41 AM EST) WBC 7.5 3.9 - 10.0 K/uL 11/20/2018 4:52 PM EST RBC 4.47 3.93 - 5.22 Million/uL 11/20/2018 4:52 PM EST Comment: No Red Blood Cell [...] ??12 ??Years ??150 ??Years ??3.93 5.22 Hgb 13.3 11.2 - 15.7 Gram/dL 11/20/2018 4:52 PM EST Comment: No Hemoglobin reference ranges [...] ??12 ??Years ??150 ??Years ??11.2 15.7 Hct 40.9 34.1 - 44.9 % 11/20/2018 4:52 PM EST Comment: No Hematocrit reference ranges [...] ??12 ??Years ??150 ??Years ??34.1 44.9 MCV 91.5 79.0 - 94.8 fL 11/20/2018 4:52 PM EST MCH 29.8 25.6 - 32.2 pg 11/20/2018 4:52 PM EST MCHC 32.5 32.3 - 36.5 Gram/dL 11/20/2018 4:52 PM EST RDW 13.0 11.6 - 14.4 % 11/20/2018 4:52 PM EST Platelet Count 200 163 - 369 K/uL 11/20/2018 4:52 PM EST MPV 9.7 9.4 - 12.4 fL 11/20/2018 4:52 PM EST Slide Review No 11/20/2018 5:06 PM EST Blood 11/20/2018 11:4 1 AM EST 11/20/2018 4:48 PM EST us Sle Historical Provider LAB BLOOD ORDERABLES Fi nal Result [facility] [address] [place] [address] documented in this encounter Visit Diagnoses Not on filedocumented in this encounter Care Teams Hydrator Operator Relationship Specialty Start Date End Date Komal MéndezCODY PCP - General Primary Care 09/07/22 01/03/24 Steven Marcelo MD [address] [facility] [address] [place] [address] Surgeon General Surgery 09/07/22 Jayla Ontiveros MD [address] [facility] [address] [place] [address] Medical Oncologist Hematology and Oncology 09/07/22 Modesta Valadez RN Nurse Navigator 03/03/23 03/20/24 documented as of this encounter
--- OUTSIDE RECORDS SUMMARY | 2024-10-05 17:18 | XMS_ITS | Encounter Summary ---
Author Organization [employer] Address [address] [place] [address] Care Team Providers Care Tool Crib Lead Name Role Phone Irene Méndezh Nick ROSS Primary Care Provider + [phone] Steven Marcelo MD Unavailable [phone] Jayla Ontiveros MD Unavailable [phone] Modesta Valadez RN Unavailable Unavailable Suzanne Mora APRN Primary Care Provider [phone] Encounter Details Date Type Department Care Team (Late st Contact Info) Description 03/19/2019 Transcribed Document [facility] [place] [facility] [place] [address] ProviderNimisha MD [address] [place] [address] Social History Tobacco Use Types Packs/Day Years Used Date Smoking Tobacco: Never Assessed Comments Unknown Sex and Gender Information Value Date Recorded Sex Assigned at Not on file Legal Sex Female 4:30 PM CDT Gender Identity Not on file Sexual Orientation Not on file documented as of this encounter Miscellaneous Notes * Cerner Conversion Note - Nimisha Looney MD - 03/19/2019 2:24 PM CDT DATE OF PROCEDURE:03/19/2019 PROCEDURE: 1. Left upper extremity venogram. 2. Dual-chamber pacemaker implant. SURGEON: Attending set up / operator: Elza Mendez MD, [facility]. REFERRING CLOTH WASHER BACK TENDER: To Nicholas MD PROCEDURE INDICATIONS: 1. Symptomatic sinus node dysfunction with 3.8-second pause. 1. Baseline EKG: The rhythm was normal sinus. DESCRIPTION OF PROCEDURE: After written witnessed informed consent was obtained for the procedure and sedation from the patient, the patient was transferred to the EP laboratory. The patient was in the fasting state. A grounding pad was placed. Self-adhesive anterior-posterior defibrillation pads were applied. Blood pressure was monitored. The left infraclavicular region was clipped, prepped, and draped in the usual sterile after left upper extremity venogram showed patent left subclavian vein. Local anesthesia with lidocaine 1% was given and an incision was made. A left infraclavicular subcutaneous pocket was then constructed and was flushed with normal saline. Left axillary vein access was then obtained for lead placement. The vessel was accessed twice using the modified Seldinger technique with a micro needle. Under fluoroscopy, right ventricular lead was inserted and positioned at the apical RV septum and right atrial lead was inserted and positioned at the lateral appendage. Pacing and sensing thresholds were within normal limits. The leads were then secured with anchoring sleeves and nonabsorbable sutures. The [place] MRI compatible dual-chamber pacemaker, Assurity MRI, model number [id number], serial #[id number] was attached to the leads and implanted in the pocket. Two-way communication was established between the device and its python programmer. The device was interrogated and its parameters recorded. Pacing and sensing parameters were within normal. Hemostasis was then obtained with electrocautery. The pocket was vancomycin and the wound was closed in three layers. The skin was approximated with subcuticular sutures and Steri-Strips. Lead parameters: A right atrial lead - model 2088TC, 52 cm, serial number [id number], P-wave 1.6 mV, impedance 550 ohms and capture threshold 1.5 V at 0.5 msec. Right ventricular lead model 2088TC, 58 cm, serial number [id number], R-wave 7.2 mV, impedance 840 ohms and capture threshold 0.5 V at 0.5 msec. SEDATION: Sedation was administered by anesthesia, the propofol. COMPLICATIONS: No immediate complications. DISCHARGE AND FOLLOWUP: The patient left the EP laboratory in a stable condition. She will be monitored on tele for the next 3 hours to be discharged home thereafter if she remains stable. Stat portable chest x-ray was ordered. SUMMARY: 1. Successful MRI compatible dual-chamber pacemaker implant. 2. The pacing and sensing thresholds were satisfactory. Thank you so much for allowing us to participate in the care of this patient. Please do not hesitate to call us with any questions. Elza Mendez MD Dict: 03/19/2019 14:24:17 Trans: 03/19/2019 19:25:36 CC1: Elza Mendez MD CC2: To Nicholas MD Electronically signed by [facility], [facility] Conversion Solar Systems Designer Cerner at 02/22/2023 11:44 AM CDT documented in this encounter Plan of Treatment Upcoming Encounters Date Type Department Care Team (Late st Contact Info) Description 01/15/2025 2:45 PM EDT Office Visit [facility] - [place] [id number] [place] [address] Jayla Ontiveros MD [address] [place] [address] [address] [place], [place] [id number] 09/19/2025 2:30 PM EST Appointment [facility] Breast [facility] [address] [place] [address] documented as of this encounter Visit Diagnoses Not on filedocumented in this encounter Care Teams Tool Crib Lead Relationship Specialty Start Date End Date Komal Méndez CONTRACT PREPARER PCP - General Primary Care 09/07/22 01/03/24 Suzanne Mora, CONTRACT PREPARER [address] [place] [address] PCP - General Family Medicine 01/04/24 Steven Marcelo MD [address] [place] [id number] Surgeon General Surgery 09/07/22 Jayla Ontiveros MD [facility] [place] [address] Medical Oncologist Hematology and Oncology 09/07/22 Modesta Valadez RN Nurse Navigator 03/03/23 03/20/24 documented as of this encounter
--- OUTSIDE RECORDS SUMMARY | 2024-10-05 17:18 | XMS_ITS | Encounter Summary ---
Author Organization [employer] Address [address] [place] [address] Care Team Providers Care Residential Instructor Name Role Phone Irene Méndezh Nick ROSS Primary Care Provider + [phone] Steven Marcelo MD Unavailable [phone] Jayla Ontiveros MD Unavailable [phone] Modesta Valadez RN Unavailable Unavailable Suzanne Mora APRN Primary Care Provider [phone] Encounter Details Date Type Department Care Team (Late st Contact Info) Description 11/20/2018 Transcribed Document [facility] [place] [facility] [place] [address] ProviderNimisha MD [address] [place] [address] Social History Tobacco Use Types [...] - Historical ProviderMD - 11/20/2018 11:11 AM BRICK OFF BEARER ED Triage Entered On: 11/20/2018 11:22 EST Performed On: 11/20/2018 11:18 EST by ADOLFO FLOYD RN ED Triage Across the Room Triage Date/Time : 11/20/2018 11:18 EST Chief Complaint : c/o abdominal pain starting at 0230 this am, denies n/v/d. state pain is sharp and radiates to her sides. p/w/d. ADOLFO FLOYD RN - 11/20/2018 11:18 EST DCP GENERIC CODE Tracking Acuity : 3 - Urgent Tracking Group : [facility] ED [facility] ADOLFO FLOYD RN - 11/20/2018 11:18 EST Mode of Arrival : Ambulatory Transported to ED by : Private vehicle To Room Via : Ambulate Accompanied By : Unaccompanied ED Vital Signs : Document Height & Weight : Document ED Allergies : Document ED Reason for Visit : Document Tetanus Immunization : Unknown ADOLFO FLOYD RN - 11/20/2018 11:18 EST Infectious Disease History Infectious Disease History : Influenza, Measles, Mumps Fever/Chills Last 48 Hours : No Travel To Regions with Travel Advisories : No Travel Outside [place] Within Last 30 Days : No Contact With Traveler to Advisory Region : No Tuberculosis Symptoms : None ADOLFO FLOYD RN - 11/20/2018 11:18 EST Vital Signs ED Temperature Source : Oral Temperature Mode : Fahrenheit Temperature, Fahrenheit : 98.1 Deg F ED Pain : Yes Clinical Temperature, C : 36.7 Deg C Oxygen Therapy Mode : Room air Peripheral Pulse Rate : 65 bpm Respiratory Rate : 16 Breaths/Min Systolic Blood Pressure : 165 mmHg (HI) Diastolic Blood Pressure : 75 mmHg Oxygen Saturation : 100 % ADOLFO FLOYD RN - 11/20/2018 11:18 EST Allergy (As Of: 11/20/2018 11:22:10 EST) Allergies (Active) No Known Medication Allergies Estimated Onset Date: Unspecified ; Created By: JARION HUMPHRIES RN; Reaction Status: Active ; Category: Drug ; Substance: No Known Medication Allergies ; Type: Allergy ; Updated By: JAIRON HUMPHRIES RN; Reviewed Date: 11/20/2018 11:20 EST Diagnosis Control ED (As Of: 11/20/2018 11:22:10 EST) Problems(Active) Atrial fibrillation (SNOMED CT :99227638 ) Name of Problem: Atrial fibrillation ; Recorder: MARISELA JULIO RN; Confirmation: Confirmed ; Classification: Medical ; Code: 12212125 ; Contributor System: Specialists On Call ; Last Updated: 11/04/2017 11:49 EST ; Life Cycle Date: 11/04/2017 ; Life Cycle Status: Active ; Vocabulary: SNOMED CT High blood pressure (SNOMED CT :59698130 ) Name of Problem: High blood pressure ; Recorder: BLAKE HERMAN RN; Confirmation: Confirmed ; Classification: Medical ; Code: 32427071 ; Contributor System: Specialists On Call ; Last Updated: 04/18/2014 19:26 EDT ; Life Cycle Date: 01/01/2014 ; Life Cycle Status: Active ; Vocabulary: SNOMED CT Kidney disease (SNOMED CT :958502619 ) Name of Problem: Kidney disease ; Recorder: MARISELA JULIO RN; Confirmation: Confirmed ; Classification: Medical ; Code: 952994732 ; Contributor System: Specialists On Call ; Last Updated: 11/04/2017 11:50 EST ; Life Cycle Date: 11/04/2017 ; Life Cycle Status: Active ; Vocabulary: SNOMED CT Diagnoses(Active) Abdominal pain Date: 11/20/2018 ; Diagnosis Type: Reason For Visit ; Confirmation: Complaint of ; Clinical Dx: Abdominal pain ; Classification: Medical ; Clinical Service: Emergency medicine ; Code: PNED ; Probability: 0 ; Diagnosis Code: [id number] ED Height and Weight Height Source : Stated Height Entry Format : [place] Height, Feet : 5 ft(Converted to: 152 cm, 60 Inch) Height, Inches : 7 Inch(Converted to: 0 ft 7 Inch, 17.78 cm) Clinical Height : 170.18 cm Weight Source, ED : Standing scale Weight Entry Format : [place] Weight, Pounds : 135 lb Clinical Dosing Weight : 61.36 kg Body Surface Area (BSA) : 1.71 m2 Body Mass Index : 21.2 kg/m2 [place] Body Weight (IBW) : 61.16 kg ADOLFO FLOYD RN - 11/20/2018 11:18 EST Pain Assessment Pain Assessment : Initial assessment Pain Scale Used : 0-10 Scale Location : Abdominal ADOLFO FLOYD RN - 11/20/2018 11:18 EST Pain Scale Intensity : 9 EVERETTADOLFO BUTLER RN - 11/20/2018 11:18 EST Image 4 - Images currently included in the form version of this document have not been included in the text rendition version of the form. ED Influenza/Pneumoccocal Vaccine Influenza Immunization, Current Season : No Previous Vaccines from Immunization Schedule : No qualifying data available. ADOLFO FLOYD RN - 11/20/2018 11:18 EST Electronically signed by [facility] Conversion Weekday Babysitter Cerner at 02/22/2023 11:55 AM CDT documented in this encounter Plan of Treatment Upcoming Encounters Date Type Department Care Team (Late st Contact Info) Description 01/15/2025 2:45 PM EDT Office Visit [facility] - [place] [address] [place] [address] Jayla Ontiveros MD [address] [place] [address] [place], [place] [id number] 09/19/2025 2:30 PM EST Appointment [facility] Breast [facility] [address] [place] [address] documented as of this encounter Visit Diagnoses Not on filedocumented in this encounter Care Teams Residential Instructor Relationship Specialty Start Date End Date Komal Méndez, PERSONAL COUNSELOR PCP - General Primary Care 09/07/22 01/03/24 Suzanne Mora, PERSONAL COUNSELOR [address] [place] [address] PCP - General Family Medicine 01/04/24 Steven Marcelo MD [address] [facility] [address] [place] [address] Surgeon General Surgery 09/07/22 Jayla Ontiveros MD [address] [facility] [address], [place] [address] Medical Oncologist Hematology and Oncology 09/07/22 Modesta Valadez, RN Nurse Navigator 03/03/23 03/20/24 documented as of this encounter
--- OUTSIDE RECORDS SUMMARY | 2024-10-05 17:18 | XMS_ITS | Encounter Summary ---
Author Organization [employer] Address [address] [place] [address] Care Team Providers Care Staff Research Associate Name Role Phone Komal Méndez Nick ROSS Primary Care Provider + [phone] Steven Mareclo MD Unavailable [phone] Jayla Ontiveros MD Unavailable [phone] Modesta Valadez RN Unavailable Unavailable Encounter Details Date Type Department Care Team (Late st Contact Info) Description 11/20/2018 Historic Encounter [address] [address] ProviderLamin Historical Social History Tobacco [...] Description 01/15/2025 2:45 PM EDT Office Visit [facility] - [place] [address] [place] [address] Jayla Ontiveros MD [address] [facility] [address] [place], [place] [address] 09/19/2025 2:30 PM EST Appointment [facility] [address] [facility] [address] [place] [address] documented as of this encounter Procedures Procedure Name Priority Date/Time Associated Diagnosis Comments LACTIC ACID WITH REFLEX Routine 11/20/2018 11:41 AM EST documented in this encounter Results * Lactic Acid with reflex (SJ) (11/20/2018 11:41 AM EST) Lactic Acid Level 0.6 0.4 - 2.0 mmol/L 11/20/2018 6:13 PM EST Blood 11/20/2018 11:4 1 AM EST 11/20/2018 4:49 PM EST [facility] Historical Provider LAB BLOOD ORDERABLES Fi nal Result [facility] [address] [phone] documented in this encounter Visit Diagnoses Not on filedocumented in this encounter Care Teams Staff Research Associate Relationship Specialty Start Date End Date Dev, Komal Romero APRN PCP - General Primary Care 09/07/22 01/03/24 Steven Marcelo MD [address] [facility] [address] [place] [address] Surgeon General Surgery 09/07/22 Jayla Ontiveros MD [address] [facility] [address] [place] [address] Medical Oncologist Hematology and Oncology 09/07/22 Rory, Modesta Walsh, RN Nurse Navigator 03/03/23 03/20/24 documented as of this encounter
--- OUTSIDE RECORDS SUMMARY | 2024-10-05 17:18 | XMS_ITS | Encounter Summary ---
Author Organization [employer] Address [address] [place] [address] Care Team Providers Care Tank Crewmember Name Role Phone Komal Méndez APRN Primary Care Provider [phone] Steven Marcelo MD Unavailable [phone] Jayla Ontiveros MD Unavailable [phone] Modesta Valadez RN Unavailable Unavailable Suzanne Mora APRN Primary Care Provider [phone] Encounter Details Date Type Department Care Team (Late st Contact Info) Description 11/20/2018 Transcribed Document [facility] [place] [address] ProviderNimisha MD [address] [place] [address] Social History Tobacco Use Types Packs/Day Years Used Date Smoking Tobacco: Never Assessed Comments Unknown Sex and Gender Information Value Date Recorded Sex Assigned at Not on file Legal Sex Female 4:30 PM CDT Gender Identity Not on file Sexual Orientation Not on file documented as of this encounter Miscellaneous Notes * Cerner Conversion Note - Historical ProviderMD - 11/20/2018 2:55 PM 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 [address] [place] [address] Patient Information Name: SHERON CARVAJAL Age: 67 Years Date of : 1950 Arrival Time: 11/20/2018 11:11:00 Diagnosis Abdominal pain; Hypertension; Vomiting Primary Care Physician: PALLAVI VALIENTE Provider Information Primary Provider: VALERIO VILLARREAL MD Secondary Provider: SHERON CARVAJAL has been given the following list of patient education materials, prescriptions and follow-up instructions: Follow-up Instructions: With: Address: When: Patient Resource [facility] Within As needed Comments: For assistance in the future with finding a New Primary Care Physician please contact the Patient Resource Center at [phone]. Your blood pressure was elevated during your visit to the emergency department today. There are many reasons as to why this may be, including your condition upon arrival to the hospital, as well as the stress involved with your situation. I have provided you a phone contact in order to arrange follow-up for this condition and its potential complications. You may certainly arrange follow up with your primary provider. Return or go to the nearest ER for worsening uncontrolled pain, fever, dizziness and or persistent vomiting. Patient Education Materials: DASH Eating Plan DASH stands for Dietary Approaches to Stop Hypertension. The DASH eating plan is a healthy eating plan that has been shown to reduce high blood pressure (hypertension). Additional health benefits may include reducing the risk of type 2 diabetes mellitus, heart disease, and stroke. The DASH eating plan may also help with weight loss. What do I need to know about the DASH eating plan? For the DASH eating plan, you will follow these general guidelines: ??? Choose foods with less than 150 milligrams of sodium per serving (as listed on the food label). ??? Use salt-free seasonings or herbs instead of table salt or sea salt. ??? Check with your health care provider or pharmacist before using salt substitutes. ??? Eat lower-sodium products. These are often labeled as low-sodium or no salt added. ??? Eat fresh foods. Avoid eating a lot of canned foods. ??? Eat more vegetables, fruits, and low-fat dairy products. ??? Choose whole grains. Look for the word whole as the first word in the ingredient list. ??? Choose fish and skinless chicken or turkey more often than red meat. Limit fish, poultry, and meat to 6 oz (170 g) each day. ??? Limit sweets, desserts, sugars, and sugary drinks. ??? Choose heart-healthy fats. ??? Eat more home-cooked food and less restaurant, buffet, and fast food. ??? Limit fried foods. ??? Do not coffey foods. Cook foods using methods such as baking, boiling, grilling, and broiling instead. ??? When eating at a restaurant, ask that your food be prepared with less salt, or no salt if possible. What foods can I eat? Seek help from a dietitian for individual calorie needs. GrainsWhole grain or whole wheat bread. Brown rice. Whole grain or whole wheat pasta. Quinoa, bulgur, and whole grain cereals. Low-sodium cereals. [place] or whole wheat flour tortillas. Whole grain cornbread. Whole grain crackers. Low-sodium crackers. VegetablesFresh or frozen vegetables (raw, steamed, roasted, or grilled). Low-sodium or reduced-sodium tomato and vegetable juices. Low-sodium or reduced-sodium tomato sauce and paste. Low-sodium or reduced-sodium canned vegetables. FruitsAll fresh, canned (in natural juice), or frozen fruits. Meat and Other Protein ProductsGround beef (85% or leaner), grass-fed beef, or beef trimmed of fat. Skinless chicken or turkey. Ground chicken or turkey. Pork trimmed of fat. All fish and seafood. Eggs. Dried beans, peas, or lentils. Unsalted nuts and seeds. Unsalted canned beans. DairyLow-fat dairy products, such as skim or 1% milk, 2% or reduced-fat cheeses, low-fat ricotta or cottage cheese, or plain low-fat yogurt. Low-sodium or reduced-sodium cheeses. Fats and OilsTub margarines without trans fats. Light or reduced-fat mayonnaise and salad dressings (reduced sodium). Avocado. Safflower, olive, or canola oils. Natural peanut or almond butter. OtherUnsalted popcorn and pretzels. The items listed above may not be a complete list of recommended foods or beverages. Contact your dietitian for more options. What foods are not recommended? GrainsWhite bread. White pasta. White rice. Refined cornbread. Bagels and croissants. Crackers that contain trans fat. VegetablesCreamed or fried vegetables. Vegetables in a cheese sauce. Regular canned vegetables. Regular canned tomato sauce and paste. Regular tomato and vegetable juices. FruitsCanned fruit in light or heavy syrup. Fruit juice. Meat and Other Protein ProductsFatty cuts of meat. Ribs, chicken wings, leal, sausage, bologna, salami, chitterlings, fatback, hot dogs, bratwurst, and packaged luncheon meats. Salted nuts and seeds. Canned beans with salt. DairyWhole or 2% milk, cream, jzll-xlw-dnhy, and cream cheese. Whole-fat or sweetened yogurt. Full-fat cheeses or blue cheese. Nondairy creamers and whipped toppings. Processed cheese, cheese spreads, or cheese curds. CondimentsOnion and garlic salt, seasoned salt, table salt, and sea salt. Canned and packaged gravies. Worcestershire sauce. Tartar sauce. Barbecue sauce. Teriyaki sauce. Soy sauce, including reduced sodium. Steak sauce. Fish sauce. Oyster sauce. Cocktail sauce. Horseradish. Ketchup and mustard. Meat flavorings and tenderizers. Bouillon cubes. Hot sauce. Tabasco sauce. Marinades. Taco seasonings. Relishes. Fats and OilsButter, stick margarine, lard, shortening, ghee, and leal fat. Coconut, palm kernel, or palm oils. Regular salad dressings. OtherPickles and olives. Salted popcorn and pretzels. The items listed above may not be a complete list of foods and beverages to avoid. Contact your dietitian for more information. Where can I find more information? National Heart, Lung, and Blood [place]: www.nhlbi.nih.gov/health/health-topics/topics/dash/ This information is not intended to replace advice given to you by your health care provider. Make sure you discuss any questions you have with your health care provider. Document Released: 10/12/2012 Document Revised: 03/31/2017 Document Reviewed: 08/28/2014 Elsevier Interactive Patient Education ? 2017 [email or web address] Managing Your Hypertension Hypertension is commonly called high blood pressure. Blood pressure is a measurement of how strongly your blood is pressing against the rolon of your arteries. Arteries are blood vessels that carry blood from your heart throughout your body. Blood pressure does not stay the same. It rises when you are active, excited, or nervous. It lowers when you are sleeping or relaxed. If the numbers that measure your blood pressure stay above normal most of the time, you are at risk for health problems. Hypertension is a long-term (chronic) condition in which blood pressure is elevated. This condition often has no signs or symptoms. The cause of the condition is usually not known. What are blood pressure readings? A blood pressure reading is recorded as two numbers, such as 120 over 80 (or 120/80). The first ( top ) number is called the systolic pressure. It is a measure of the pressure in your arteries as the heart beats. The second ( bottom ) number is called the diastolic pressure. It is a measure of the pressure in your arteries as the heart relaxes between beats. What does my blood pressure reading mean? Blood pressure is classified into four stages. Based on your blood pressure reading, your health care provider may use the following stages to determine what type of treatment, if any, is needed. Systolic pressure and diastolic pressure are measured in a unit called mm Hg. Normal ??? Systolic pressure: below 120. ??? Diastolic pressure: below 80. Prehypertension ??? Systolic pressure: 120?139. ??? Diastolic pressure: 80?89. Hypertension stage 1 ??? Systolic pressure: 140?159. ??? Diastolic pressure: 90?99. Hypertension stage 2 ??? Systolic pressure: 160 or above. ??? Diastolic pressure: 100 or above. What health risks are associated with hypertension? Managing your hypertension is an important responsibility. Uncontrolled hypertension can lead to: ??? A heart attack. ??? A stroke. ??? A weakened blood vessel (aneurysm). ??? Heart failure. ??? Kidney damage. ??? Eye damage. ??? Metabolic syndrome. ??? Memory and concentration problems. What changes can I make to manage my hypertension? Hypertension can be managed effectively by making lifestyle changes and possibly by taking medicines. Your health care provider will help you come up with a plan to bring your blood pressure within a normal range. Your plan should include the following: Monitoring ??? Monitor your blood pressure at home as told by your health care provider. Your personal target blood pressure may vary depending on your medical conditions, your age, and other factors. ??? Have your blood pressure rechecked as told by your health care provider. Lifestyle ??? Lose weight if necessary. ??? Get at least 30?45 minutes of aerobic exercise at least 4 times a week. ??? Do notuse any products that contain nicotine or tobacco, such as cigarettes and e-cigarettes. If you need help quitting, ask your health care provider. ??? Learn ways to reduce stress. ??? Control any chronic conditions, such as high cholesterol or diabetes. Eating and drinking ??? Follow the DASH diet. This diet is high in fruits, vegetables, and whole grains. It is low in salt, red meat, and added sugars. ??? Keep your sodium intake below 2,300 mg per day. ??? Limit alcoholic beverages. Communication ??? Review all the medicines you take with your health care provider because there may be side effects or interactions. ??? Talk with your health care provider about your diet, exercise habits, and other lifestyle factors that may be contributing to hypertension. ??? See your health care provider regularly. Your health care provider can help you create and adjust your plan for managing hypertension. Will I need medicine to control my blood pressure? Your health care provider may prescribe medicine if lifestyle changes are not enough to get your blood pressure under control, and if one of the following is true: ??? You are 18?59 years of age, and your systolic blood pressure is 140 or higher. ??? You are 60 years of age or older, and your systolic blood pressure is 150 or higher. ??? Your diastolic blood pressure is 90 or higher. ??? You have diabetes, and your systolic blood pressure is over 140 or your diastolic blood pressure is over 90. ??? You have kidney disease, and your blood pressure is above 140/90. ??? You have heart disease or a history of stroke, and your blood pressure is 140/90 or higher. Take medicines only as told by your health care provider. Follow the directions carefully. Blood pressure medicines must be taken as prescribed. The medicine does not work as well when you skip doses. Skipping doses also puts you at risk for problems. Contact a health care provider if: ??? You think you are having a reaction to medicines you have taken. ??? You have repeated (recurrent) headaches. ??? You feel dizzy. ??? You have swelling in your ankles. ??? You have trouble with your vision. Get help right away if: ??? You develop a severe headache or confusion. ??? You have unusual weakness or numbness, or you feel faint. ??? You have severe pain in your chest or abdomen. ??? You vomit repeatedly. ??? You have trouble breathing. This information is not intended to replace advice given to you by your health care provider. Make sure you discuss any questions you have with your health care provider. Document Released: 07/18/2013 Document Revised: 06/28/2017 Document Reviewed: 01/21/2017 [email or web address] Interactive Patient Education ? 2017 [employer]. Hypertension Hypertension is another name for high blood pressure. High blood pressure forces your heart to work harder to pump blood. A blood pressure reading has two numbers, which includes a higher number over a lower number (example: 110/72). Follow these instructions at home: ??? Have your blood pressure rechecked by your doctor. ??? Only take medicine as told by your doctor. Follow the directions carefully. The medicine does not work as well if you skip doses. Skipping doses also puts you at risk for problems. ??? Do notsmoke. ??? Monitor your blood pressure at home as told by your doctor. Contact a doctor if: ??? You think you are having a reaction to the medicine you are taking. ??? You have repeat headaches or feel dizzy. ??? You have puffiness (swelling) in your ankles. ??? You have trouble with your vision. Get help right away if: ??? You get a very bad headache and are confused. ??? You feel weak, numb, or faint. ??? You get chest or belly (abdominal) pain. ??? You throw up (vomit). ??? You cannot breathe very well. This information is not intended to replace advice given to you by your health care provider. Make sure you discuss any questions you have with your health care provider. Document Released: 04/11/2009 Document Revised: 03/31/2017 Document Reviewed: 08/16/2014 [email or web address] Interactive Patient Education ? 2017 [email or web address] Nausea and Vomiting, Adult Nausea is the feeling that you have an upset stomach or have to vomit. As nausea gets worse, it can lead to vomiting. Vomiting occurs when stomach contents are thrown up and out of the mouth. Vomiting can make you feel weak and cause you to become dehydrated. Dehydration can make you tired and thirsty, cause you to have a dry mouth, and decrease how often you urinate. Older adults and people with other diseases or a weak immune system are at higher risk for dehydration. It is important to treat your nausea and vomiting as told by your health care provider. Follow these instructions at home: Follow instructions from your health care provider about how to care for yourself at home. Eating and drinkingFollow these recommendations as told by your health care provider: ??? Take an oral rehydration solution (ORS). This is a drink that is sold at pharmacies and retail stores. ??? Drink clear fluids in small amounts as you are able. Clear fluids include water, ice chips, diluted fruit juice, and low-calorie sports drinks. ??? Eat bland, hpii-iu-bzreof foods in small amounts as you are able. These foods include bananas, applesauce, rice, lean meats, toast, and crackers. ??? Avoid fluids that contain a lot of sugar or caffeine, such as energy drinks, sports drinks, and soda. ??? Avoid alcohol. ??? Avoid spicy or fatty foods. General instructions ??? Drink enough fluid to keep your urine clear or pale yellow. ??? Wash your hands often. If soap and water are not available, use hand wagon drill operator. ??? Make sure that all people in your household wash their hands well and often. ??? Take cuvl-otu-xtdcowq and prescription medicines only as told by your health care provider. ??? Rest at home while you recover. ??? Watch your condition for any changes. ??? Breathe slowly and deeply when you feel nauseated. ??? Keep all follow-up visits as told by your health care provider. This is important. Contact a health care provider if: ??? You have a fever. ??? You cannot keep fluids down. ??? Your symptoms get worse. ??? You have new symptoms. ??? Your nausea does not go away after two days. ??? You feel light-headed or dizzy. ??? You have a headache. ??? You have muscle cramps. Get help right away if: ??? You have pain in your chest, neck, arm, or jaw. ??? You feel extremely weak or you faint. ??? You have persistent vomiting. ??? You see blood in your vomit. ??? Your vomit looks like black coffee grounds. ??? You have bloody or black stools or stools that look like tar. ??? You have a severe headache, a stiff neck, or both. ??? You have a rash. ??? You have severe pain, cramping, or bloating in your abdomen. ??? You have trouble breathing or you are breathing very quickly. ??? Your heart is beating very quickly. ??? Your skin feels cold and clammy. ??? You feel confused. ??? You have pain when you urinate. ??? You have signs of dehydration, such as: ? Dark urine, very little urine, or no urine. ? Cracked lips. ? Dry mouth. ? Sunken eyes. ? Sleepiness. ? Weakness. These symptoms may represent a serious problem that is an emergency. Do not wait to see if the symptoms will go away. Get medical help right away. Call your local emergency services (911 in the [place] Do not drive yourself to the hospital. This information is not intended to replace advice given to you by your health care provider. Make sure you discuss any questions you have with your health care provider. Document Released: 10/24/2006 Document Revised: 03/28/2017 Document Reviewed: 06/29/2016 [employer] Interactive Patient Education ? 2017 [email or web address] Abdominal Pain, Adult Abdominal pain can be caused by many things. Often, abdominal pain is not serious and it gets better with no treatment or by being treated at home. However, sometimes abdominal pain is serious. Your health care provider will do a medical history and a physical exam to try to determine the cause of your abdominal pain. Follow these instructions at home: ??? Take xrwg-jnr-mbciakv and prescription medicines only as told by your health care provider. Do not take a laxative unless told by your health care provider. ??? Drink enough fluid to keep your urine clear or pale yellow. ??? Watch your condition for any changes. ??? Keep all follow-up visits as told by your health care provider. This is important. Contact a health care provider if: ??? Your abdominal pain changes or gets worse. ??? You are not hungry or you lose weight without trying. ??? You are constipated or have diarrhea for more than 2?3 days. ??? You have pain when you urinate or have a bowel movement. ??? Your abdominal pain wakes you up at night. ??? Your pain gets worse with meals, after eating, or with certain foods. ??? You are throwing up and cannot keep anything down. ??? You have a fever. Get help right away if: ??? Your pain does not go away as soon as your health care provider told you to expect. ??? You cannot stop throwing up. ??? Your pain is only in areas of the abdomen, such as the right side or the left lower portion of the abdomen. ??? You have bloody or black stools, or stools that look like tar. ??? You have severe pain, cramping, or bloating in your abdomen. ??? You have signs of dehydration, such as: ? Dark urine, very little urine, or no urine. ? Cracked lips. ? Dry mouth. ? Sunken eyes. ? Sleepiness. ? Weakness. This information is not intended to replace advice given to you by your health care provider. Make sure you discuss any questions you have with your health care provider. Document Released: 08/03/2006 Document Revised: 05/13/2017 Document Reviewed: 04/06/2017 [employer] Interactive Patient Education ? 2017 [email or web address] Allergies: No Known Medication Allergies Medication Information: Prescription Display dicyclomine (Bentyl 20 mg oral tablet) 1 Tab, Oral, Tab, QID, PRN Abdominal Pain, # 20 Tab, 0 Refill(s) ondansetron (ondansetron 8 mg oral tablet, disintegrating) 1 Tab, Oral, TID, PRN Nausea/Vomiting, # 9 Tab, 0 Refill(s) Laboratory or Other Results This Visit (last charted value for your 11/20/2018 visit) Hematology 11/20/18 11:41:00 WBC: 7.5 K/uL -- Normal range between ( 3.9 and 10.0 ) RBC: 4.47 Million/uL -- Normal range between ( 3.93 and 5.22 ) Hct: 40.9 % -- Normal range between ( 34.1 and 44.9 ) Hgb: 13.3 Gram/dL -- Normal range between ( 11.2 and 15.7 ) Platelet Count: 200 K/uL -- Normal range between ( 163 and 369 ) MCH: 29.8 pg -- Normal range between ( 25.6 and 32.2 ) MCHC: 32.5 Gram/dL -- Normal range between ( 32.3 and 36.5 ) MCV: 91.5 fL -- Normal range between ( 79.0 and 94.8 ) Slide Review: No RDW: 13.0 % -- Normal range between ( 11.6 and 14.4 ) MPV: 9.7 fL -- Normal range between ( 9.4 and 12.4 ) Urinalysis 11/20/18 11:57:00 Ur RBC: None Seen Urine Nitrite: Negative Urine Leukocyte Esterase: Negative Urine Appearance: Clear Urine Glucose Dipstick: Negative Urine Blood Dipstick: Negative Urine Urobilinogen Dipstick: 0.2 EU/dL -- Normal range between ( 0.2 and 1.0 ) Urine Protein Dipstick: Negative Ur Bacteria: Trace Ur Squamous Epithelial Cells: 2-5 /HPF Urine Color: Yellow Ur WBC: 0-2 /HPF Urine Ketones Dipstick: Negative Urine pH Dipstick: 6.5 -- Normal range between ( 6.0 and 8.0 ) Urine Bilirubin Dipstick: Negative mg/dL Urine Specific Panther Burn: 1.013 -- Normal range between ( 1.005 and 1.030 ) Urine Type.: U CleanCatch General Chemistry 11/20/18 11:41:00 Creatinine Level: 1.21 mg/dL -- Normal range between ( 0.55 and 1.02 ) Sodium Level: 139 mmol/L -- Normal range between ( 136 and 146 ) Potassium Level: 4.1 mmol/L -- Normal range between ( 3.5 and 5.1 ) Chloride Level: 100 mmol/L -- Normal range between ( 102 and 112 ) Carbon Dioxide Level: 31 mmol/L -- Normal range between ( 21 and 32 ) Anion Gap: 12 -- Normal range between ( 9 and 20 ) Bilirubin Total: 0.2 mg/dL -- Normal range between ( 0.2 and 1.3 ) A/G Ratio: 1.2 -- Normal range between ( 1.1 and 2.5 ) ALT: 25 Units/Liter -- Normal range between ( 12 and 78 ) AST: 22 Units/Liter -- Normal range between ( 5 and 37 ) Globulin: 3.4 Gram/dL -- Normal range between ( 1.5 and 4.5 ) Alk Phos: 105 Units/Liter -- Normal range between ( 27 and 136 ) Bun/Creatinine: 20.7 -- Normal range between ( 8.0 and 20.0 ) Calcium Level: 9.5 mg/dL -- Normal range between ( 8.5 and 10.1 ) eGFR : 54 mL/min/1.73m2 eGFR NonAfrican: 45 mL/min/1.73m2 Glucose Level: 97 mg/dL -- Normal range between ( 74 and 106 ) Blood Urea Nitrogen: 25 mg/dL -- Normal range between ( 7 and 22 ) Lactic Acid Level: 0.6 mmol/L -- Normal range between ( 0.4 and 2.0 ) Protein Total: 7.6 Gram/dL -- Normal range between ( 6.4 and 8.2 ) Albumin Level: 4.2 Gram/dL -- Normal range between ( 3.4 and 5.0 ) Lipase Level: 591 Units/Liter -- Normal range between ( 73 and 393 ) Computed Tomography 11/20/18 12:13:36 CT Abdomen Pelvis WO: CT Abdomen Pelvis WO Medication Comment: Procedures: Laboratory Orders Name Status CBCND Completed CMP Completed LACTREFL Completed LIPASE Completed UAC Completed UAMICRX Completed Radiology Orders Name Status CT Abdomen Pelvis WO Completed Cardiology Orders No cardiology orders were placed. This statement is to verify that SHERON CARVAJAL was seen at [facility] on ,11/20/2018 14:55:38. This is not a work excuse, if a work excuse was needed it will be in addition to this statement as a separate form. IMPORTANT: The examination and treatment you have received [...] that requires the expertise of a specialist. KEEP IN MIND THAT THE SPECIALIST HAS HIS/HER OWN OFFICE POLICIES WHICH MAY REQUIRE PROPER INSURANCE OR PAYMENT UP FRONT BEFORE THE SPECIALIST WILL SEE YOU. It is your responsibility to call the specialist physician to make an appointment. We do not have the ability to identify specialists/physicians that work with specific insurance companies. [...] necessary to obtain coverage for claims submitted. If you had special tests, such as EKG???s or X-rays, the interpretation of your tests given to you by the Emergency Dept. Physician is a preliminary report. Some fractures and illnesses fail to show up on preliminary tests. We will review them again within 24-48 hours. We will call you if there are any new suggestions. If your symptoms continue notify your physician. After you leave, you should follow the instructions below. In all events, you may obtain a copy of your Emergency Department visit from Medical Records. Please call to be directed to this department. We will bill your insurance; however, you are responsible today for any co-pay amounts. You will receive a separate bill for any services you may have received including: emergency, radiology, or pathology physicians. Please be sure we have an accurate contact phone number and address, should we need to call you for any reason. CIGARETTE SMOKING: The facts are clear; cigarette smoking will shorten your life. Smoking can cause many illnesses along the way. As a healthcare provider, [facility] recommends that you stop smoking. Assistance with quitting is available by contacting 8-481-OWVV-NOW. This is a free resource providing counseling, support, and referral. Or you may contact your personal physician. As part of your treatment plan, [...] cramping, rapid heartbeat, difficulty sleeping, and nervousness. The home medications listed are only as accurate as the information you provided. Please continue taking all of your medications prescribed by your Primary Care Provider unless specifically told to change or discontinue the medication. Please direct any questions regarding your home medications to your Primary Care Provider. YOU ARE THE MOST IMPORTANT FACTOR IN YOUR RECOVERY. ?? Follow your instructions carefully ?? Take your medicines as prescribed ?? Most important, see a provider as discussed. If you do not have a provider, we can provide a list of clinics Confidential This message and accompanying documents are covered by Electronic Communications Privacy Act 18 U.S.C. ???Sections 6198-0240,?? and contain information intended for the specified individual(s) only. This information is confidential. If you are not the intended recipient or an agent responsible for delivering it to the intended recipient, you are hereby notified that you have received the document in error and that any review, dissemination, copying, or the taking of any action based on the contents of this information is strictly prohibited. If you have received this communication in error, please notify us immediately by email, and delete the original message. STROKE is an EMERGENCY [employer] ACT F.A.S.T! FACE ?? Facial droop ?? Uneven smile ARM ?? Arm numbness ?? Arm weakness SPEECH ?? Slurred speech ?? Difficulty speaking or understanding TIME ?? Call 911 and get to the hospital immediately Have the ambulance go to the nearest stroke center. STROKE Risk Factors High blood pressure High cholesterol Heart Disease Diabetes Smoking Heavy alcohol use Physical inactivity and obesity Atrial Fibrillation (irregular heartbeat) Family history of stroke Acknowledgment I hereby acknowledge receipt of these instructions and information above. I understand that I have received Emergency Treatment only which is not a substitute for complete medical care and acknowledge that all of my medical problems may not be known, identified, or treated prior to my release. I UNDERSTAND THE NEED TO ARRANGE FOLLOW-UP CARE WITH THE PHYSICIAN INDICATED. I UNDERSTAND THAT I SHOULD CONTACT MY PHYSICIAN IMMEDIATELY OR RETURN TO THE EMERGENCY DEPARTMENT IF MY CONDITION WORSENS, FAILS TO IMPROVE, OR NEW SYMPTOMS APPEAR. Vital Signs B/P PULSE RESP. RATE TEMPERATURE PULSE OX Signature of Emergency Provider Date / Time Signature of Emergency Nurse Date / Time Reminder: Be sure to sign up for the My [facility] patient portal, which gives you 30/05 access to your medical information ??? including these discharge instructions ??? using your computer, smartphone, or tablet. Just go to [employer] to get started. Questions? Call . Acknowledgment I hereby acknowledge receipt of these instructions and information above. I understand that I have received Emergency Treatment only which is not a substitute for complete medical care and acknowledge that all of my medical problems may not be known, identified, or treated prior to my release. I UNDERSTAND THE NEED TO ARRANGE FOLLOW-UP CARE WITH THE PHYSICIAN INDICATED. I UNDERSTAND THAT I SHOULD CONTACT MY PHYSICIAN IMMEDIATELY OR RETURN TO THE EMERGENCY DEPARTMENT IF MY CONDITION WORSENS, FAILS TO IMPROVE, OR NEW SYMPTOMS APPEAR. Signature of Patient / Responsible Person Date / Time Please provide a telephone number where you can be reached. The best time to call is between: It is permissible to leave a message if no answer: Yes____ No____ Nurse Providing Instructions: Emergency Physician: documented in this encounter Plan of Treatment Upcoming Encounters Date Type Department Care Team (Late st Contact Info) Description 01/15/2025 2:45 PM EDT Office Visit [facility] [place] [address] [facility] [address] [place] [address] Jayla Ontiveros MD [address] [place] [address] 09/19/2025 2:30 PM EST Appointment [facility] Breast [facility] [address] [facility] [address] [place] [address] documented as of this encounter Visit Diagnoses Not on filedocumented in this encounter Care Teams Tank Crewmember Relationship Specialty Start Date End Date Komal MéndezCODY PCP - General Primary Care 09/07/22 01/03/24 Suzanne Mora APRN [address] [facility] [address] [place] [address] PCP - General Family Medicine 01/04/24 Steven Marcelo MD [address] [facility] [address] [place] [address] Surgeon General Surgery 09/07/22 Jayla Ontiveros MD [address] [facility] [address] [place] [address] Medical Oncologist Hematology and Oncology 09/07/22 Rory, Modesta Walsh RN Nurse Navigator 03/03/23 03/20/24 documented as of this encounter
--- OUTSIDE RECORDS SUMMARY | 2024-10-05 17:18 | XMS_ITS | Encounter Summary ---
[facility] Address [address] [place] [address] Care Team Providers Care Conditioning Coach Name Role Phone Unavailable Primary Care Provider Unavailabl e Encounter Details Date Type Department Care Team (Late st Contact Info) Description 02/10/2015 3:17 PM EDT - 02/10/2015 11:59 PM EDT Hospital Encounter [facility] DEPARTMENT [address] [place] [id number] Taran Nunez, DO [address] [place] [address] Social History Tobacco Use Types [...] W CAD Routine 02/10/2015 3:19 PM EDT documented in this encounter Results * MAMMOGRAPHY SCREENING BILATERAL (02/10/2015 3:19 [...] ? Released Date Time- 02/11/15 1056 ? Blending Machine Feeder- Ruby us Taran Nunez DO [facility] MAMMOGRAPHY ORDER YONATHAN Final Result documented in this encounter Visit Diagnoses Not on filedocumented in this encounter
--- OUTSIDE RECORDS SUMMARY | 2024-10-05 17:18 | XMS_ITS | Encounter Summary ---
Author Organization [facility] Address [address] [place] [address] Care Team Providers Care Risk Management Director Name Role Phone Komal Méndez Nick ROSS Primary Care Provider [phone] Steven Marcelo MD Unavailable [phone] Jayla Ontiveros MD Unavailable [phone] Encounter Details Date Type Department Care Team (Late st Contact Info) Description 11/20/2018 Historic Encounter [facility] Radiology [address] [place] [address] Olivier Niño MD [facility] [address] Social History Tobacco Use Types Packs/Day Years [...] Description 01/15/2025 2:45 PM EDT Office Visit [facility] [place] [address] [place] [id number] Jayla Ontiveros MD [address] [place] [address] 09/19/2025 2:30 PM EST Appointment [facility] Breast [place] [facility] [address] [facility] [address] [place] [address] documented as of this encounter Procedures Procedure Name Priority Date/Time Associated Diagnosis Comments CT ABDOMEN/PELVIS WITHOUT IV CONTRAST STAT 11/20/2018 1:12 PM EST documented in this encounter Results * CT ABDOMEN/PELVIS WITHOUT IV CONTRAST (11/20/2018 1:12 PM EST) Anatomical Region Laterality Modality Abdomen, Pelvis Computed Tomogra phy 11/20/2018 1:12 PM EST Narrative 11/20/2018 6:[address] SCAN OF THE ABDOMEN AND PELVIS WITHOUT CONTRAST ? 11/20/2018 11:42 AM HISTORY: Epigastric pain. COMPARISON: None. PROCEDURE: Axial images were obtained from the lung bases to the pubic symphysis by computed tomography. ?? This study was performed with techniques to keep radiation doses as low as reasonably achievable, (ALARA). Individualized dose reduction techniques using automated exposure control or adjustment of mA and/or kV according to the patient size were employed. FINDINGS: ABDOMEN: The lung bases are clear. The gallbladder is contracted. The right kidney is atrophic. There is no hydronephrosis or nephrolithiasis. The solid organs are otherwise unremarkable. There is no free fluid or adenopathy. PELVIS: The appendix is normal. The uterus is deviated to the left. The urinary bladder is unremarkable. There is diverticular change of the sigmoid colon. There is no free fluid or adenopathy. IMPRESSION: No acute process. Procedure Note Olivier Niño MD - 02/22/2023 CT SCAN OF THE ABDOMEN AND PELVIS WITHOUT CONTRAST 11/20/2018 11:42 AM HISTORY: Epigastric pain. COMPARISON: None. PROCEDURE: Axial images were obtained from the lung bases to the pubic symphysis by computed tomography. This study was performed with techniques to keep radiation doses as low as reasonably achievable, (ALARA). Individualized dose reduction techniques using automated exposure control or adjustment of mA and/or kV according to the patient size were employed. FINDINGS: ABDOMEN: The lung bases are clear. The gallbladder is contracted. The right kidney is atrophic. There is no hydronephrosis or nephrolithiasis. The solid organs are otherwise unremarkable. There is no free fluid or adenopathy. PELVIS: The appendix is normal. The uterus is deviated to the left. The urinary bladder is unremarkable. There is diverticular change of the sigmoid colon. There is no free fluid or adenopathy. IMPRESSION: No acute process. us A Rylan Niño MD IMG CT ORDERABLES Final R esult documented in this encounter Visit Diagnoses Not on filedocumented in this encounter Care Teams Risk Management Director Relationship Specialty Start Date End Date Dev Komal Nick, SUPPLIER ENGINEER PCP - General Primary Care 09/07/22 01/03/24 Steven Marcelo MD [address] [facility] [address] [place] [address] Surgeon General Surgery 09/07/22 Jayla Ontiveros MD [address] [facility] [address] [place] [address] Medical Oncologist Hematology and Oncology 09/07/22 documented as of this encounter
--- OUTSIDE RECORDS SUMMARY | 2024-10-05 17:18 | XMS_ITS | Encounter Summary ---
Author Organization [facility] Address [address] [place] [address] Care Team Providers Care Vulnerability Assessment Analyst Name Role Phone Unavailable Primary Care Provider Unavailabl e Encounter Details Date Type Department Care Team (Late st Contact Info) Description 02/02/2013 Historical Mammograp hy Encounter [facility] HISTORICAL CONV [address] [place] [address] Interface, See Report Social History Tobacco Use Types Packs/Day Years [...] Name Priority Date/Time Associated Diagnosis Comments MAMMO HISTORICAL RESULT Routine 02/02/2013 3:11 PM EDT documented in this encounter Results * MAMMO HISTORICAL RESULT (02/02/2013 3:11 PM EDT) Anatomical Region Laterality Modality Breast Mammography 02/02/2013 3:11 PM EDT Narrative 02/02/2013 6:10 PM EDT ?[facility] ? [address] ??[place], [place] [address] ? NAME: SHERON CARVAJAL ? : ??54 ??MR#: [id number] ? LOC: ?? CO ? AGE: 62Y ?? Pt type: CO ?Exam Date: 02/02/133 ? SEX: F ?? AN#:[id number] ?Ck-in#: [id number] ? [facility] ? [address] ? [address] ? [place] ?[place] ?[address] ? Chk-in # ?? Order ?Exam ?[id number] ?? 0001 ? [id number] ??AB MAMM SCREEN BILAT DIG PNL ? Ord Diag: RTN MMG ? BILATERAL SCREENING MAMMOGRAM: ?? HISTORY: ??The patient has no personal or significant family history of breast cancer and no new breast complaints. She reports an aunt who was diagnosed with ovarian cancer at age 24. ?? TECHNIQUE: Routine bilateral CC and MLO digital mammographic images were obtained. Bilateral anterior MLO views were also obtained. ?? COMPARISON: 02/02/12, 10/29/10 and 04/25/08. ?? FINDINGS: There are scattered bilateral fibroglandular densities. The bilateral fibroglandular pattern is stable. There are a few scattered coarse calcifications in the right breast. No new or suspicious findings are identified. ?? IMPRESSION: ??Benign screening mammogram. ?? RECOMMENDATION: ??Continue annual screening mammography. ?? BI-RADS CATEGORY II, BENIGN. ?? iCAD was utilized. ?? The standard false-negative rate of mammography is between 10 and 25%. Complex patterns or increased breast density will markedly elevate the false-negative rate of mammography. ? FINAL ?CONTINUED ?Page ??1 ? RADIOLOGY REPORT ?[facility] ? [address] ??[place], [place] [address] ? NAME: SHERON CARVAJAL ? : ??54 ??MR#: [id number] ? LOC: ?? CO ? AGE: 62Y ?? Pt type: CO ?Exam Date: 02/02/13 1513 ? SEX: F ?? AN#:[id number] ?Ck-in#: [id number] ? [facility] ? [address] ? [address] ? [place] ?[place] ?[address] ? Checkin-Exam Code Summary ? [id number] A letter, in lay terminology, with the results of this exam will be mailed to the patient. ?/READ BY/ PRADEEP MILLERTER-MD ?/Released By/ PRADEEP MURRELL-MD ?Released By Date/Time: ??/29/13 1803 ?Delivery Truck Driver: ??LS ? FINAL ? Page ??2 ? RADIOLOGY REPORT us See Report Interface IMG MAMMOGRAPHY ORDERABLES Final Result documented in this encounter Visit Diagnoses Not on filedocumented in this encounter
--- OUTSIDE RECORDS SUMMARY | 2024-10-05 17:18 | XMS_ITS | Encounter Summary ---
Author Organization [facility] Address [address] [place] [address] Care Team Providers Care Air Quality Specialist Name Role Phone Irene Méndezh Nick ROSS Primary Care Provider [phone] Steven Marcelo MD Unavailable [phone] Jayla Ontiveros MD Unavailable [phone] Modesta Valadez RN Unavailable Unavailable Suzanne Mora APRN Primary Care Provider [phone] Encounter Details Date Type Department Care Team (Late st Contact Info) Description 03/19/2019 Transcribed Document [facility] [place] [facility] [place] [address] Nimisha Looney MD [address] [place] [address] Social History Tobacco Use Types Packs/Day Years Used Date Smoking Tobacco: Never Assessed Comments Unknown Sex and Gender Information Value Date Recorded Sex Assigned at Not on file Legal Sex Female 4:30 PM CDT Gender Identity Not on file Sexual Orientation Not on file documented as of this encounter Miscellaneous Notes * Cerner Conversion Note - Nimisha Looney MD - 03/19/2019 5:04 PM CDT Patient Education Materials Follows: Coronary Artery Disease, Male Coronary artery disease (CAD) is a condition in which the arteries that lead to the heart (coronary arteries) become narrow or blocked. The narrowing or blockage can lead to decreased blood flow to the heart. Prolonged reduced blood flow can cause a heart attack (myocardial infarction or LA). This condition may also be called coronary heart disease. Because CAD is the leading cause of in men, it is important to understand what causes this condition and how it is treated. What are the causes? CAD is most often caused by atherosclerosis. This is the buildup of fat and cholesterol (plaque) on the inside of the arteries. Over time, the plaque may narrow or block the artery, reducing blood flow to the heart. Plaque can also become weak and break off within a coronary artery and cause a sudden blockage. Other less common causes of CAD include: ??? An embolism or blood clot in a coronary artery. ??? A tearing of the artery (spontaneous coronary artery dissection). ??? An aneurysm. ??? Inflammation (vasculitis) in the artery wall. What increases the risk? The following factors may make you more likely to develop this condition: ??? Age. Men over age 45 are at a greater risk of CAD. ??? Family history of CAD. ??? Gender. Men often develop CAD earlier in life than women. ??? High blood pressure (hypertension). ??? Diabetes. ??? High cholesterol levels. ??? Tobacco use. ??? Excessive alcohol use. ??? Lack of exercise. ??? A diet high in saturated and trans fats, such as fried food and processed meat. Other possible risk factors include: ??? High stress levels. ??? Depression. ??? Obesity. ??? Sleep apnea. What are the signs or symptoms? Many people do not have any symptoms during the early stages of CAD. As the condition progresses, symptoms may include: ??? Chest pain (angina). The pain can: ? Feel like a crushing or squeezing, or a tightness, pressure, fullness, or heaviness in the chest. ? Last more than a few minutes or can stop and recur. The pain tends to get worse with exercise or stress and to fade with rest. ??? Pain in the arms, neck, jaw, or back. ??? Unexplained heartburn or indigestion. ??? Shortness of breath. ??? Nausea or vomiting. ??? Sudden light-headedness. ??? Sudden cold sweats. ??? Fluttering or fast heartbeat (palpitations). How is this diagnosed? This condition is diagnosed based on: ??? Your family and medical history. ??? A physical exam. ??? Tests, including: ? A test to check the electrical signals in your heart (electrocardiogram). ? Exercise stress test. This looks for signs of blockage when the heart is stressed with exercise, such as running on a treadmill. ? Pharmacologic stress test. This test looks for signs of blockage when the heart is being stressed with a medicine. ? Blood tests. ? Coronary angiogram. This is a procedure to look at the coronary arteries to see if there is any blockage. During this test, a dye is injected into your arteries so they appear on an X-ray. ? A test that uses sound waves to take a picture of your heart (echocardiogram). ? Chest X-ray. How is this treated? This condition may be treated by: ??? Healthy lifestyle changes to reduce risk factors. ??? Medicines such as: ? Antiplatelet medicines and blood-thinning medicines, such as aspirin. These help to prevent blood clots. ? Nitroglycerin. ? Blood pressure medicines. ? Cholesterol-lowering medicine. ??? Coronary angioplasty and stenting. During this procedure, a thin, flexible tube is inserted through a blood vessel and into a blocked artery. A balloon or similar device on the end of the tube is inflated to open up the artery. In some cases, a small, mesh tube (stent) is inserted into the artery to keep it open. ??? Coronary artery bypass surgery. During this surgery, veins or arteries from other parts of the body are used to create a bypass around the blockage and allow blood to reach your heart. Follow these instructions at home: Medicines ??? Take gidt-fyp-ygogkjr and prescription medicines only as told by your health care provider. ??? Do not take the following medicines unless your health care provider approves: ? NSAIDs, such as ibuprofen, naproxen, or celecoxib. ? Vitamin supplements that contain vitamin A, vitamin E, or both. Lifestyle ??? Follow an exercise program approved by your health care provider. Aim for 150 minutes of moderate exercise or 75 minutes of vigorous exercise each week. ??? Maintain a healthy weight or lose weight as approved by your health care provider. ??? Rest when you are tired. ??? Learn to manage stress or try to limit your stress. Ask your health care provider for suggestions if you need help. ??? Get screened for depression and seek treatment, if needed. ??? Do not use any products that contain nicotine or tobacco, such as cigarettes and e-cigarettes. If you need help quitting, ask your health care provider. ??? Do not use illegal drugs. Eating and drinking ??? Follow a heart-healthy diet. A dietitian can help educate you about healthy food options and changes. In general, eat plenty of fruits and vegetables, lean meats, and whole grains. ??? Avoid foods high in: ? Sugar. ? Salt (sodium). ? Saturated fat, such as processed or fatty meat. ? Trans fat, such as fried foods. ??? Use healthy cooking methods such as roasting, grilling, broiling, baking, poaching, steaming, or stir-frying. ??? If you drink alcohol, and your health care provider approves, limit your alcohol intake to no more than 2 drinks per day. One drink equals 12 ounces of beer, 5 ounces of wine, or 1? ounces of hard liquor. General instructions ??? Manage any other health conditions, such as hypertension and diabetes. These conditions affect your heart. ??? Your health care provider may ask you to monitor your blood pressure. Ideally, your blood pressure should be below 130/80. ??? Keep all follow-up visits as told by your health care provider. This is important. Get help right away if: ??? You have pain in your chest, neck, arm, jaw, stomach, or back that: ? Lasts more than a few minutes. ? Is recurring. ? Is not relieved by taking medicine under your tongue (sublingualnitroglycerin). ??? You have too much (profuse) sweating without cause. ??? You have unexplained: ? Heartburn or indigestion. ? Shortness of breath or difficulty breathing. ? Fluttering or fast heartbeat (palpitations). ? Nausea or vomiting. ? Fatigue. ? Feelings of nervousness or anxiety. ? Weakness. ? Diarrhea. ??? You have sudden light-headedness or dizziness. ??? You faint. ??? You feel like hurting yourself or think about taking your own life. These symptoms may represent a serious problem that is an emergency. Do not wait to see if the symptoms will go away. Get medical help right away. Call your local emergency services (911 in the [place] Do not drive yourself to the hospital. Summary ??? Coronary artery disease (CAD) is a process in which the arteries that lead to the heart (coronary arteries) become narrow or blocked. The narrowing or blockage can lead to a heart attack. ??? Many people do not have any symptoms during the early stages of CAD. This is called silent CAD. ??? CAD can be treated with lifestyle changes, medicines, surgery, or a combination of these treatments. This information is not intended to replace advice given to you by your health care provider. Make sure you discuss any questions you have with your health care provider. Document Released: 05/21/2015 Document Revised: 10/14/2017 Document Reviewed: 10/14/2017 [employer] Interactive Patient Education ? 2019 [employer]. Emergency Medicine Sick Sinus Syndrome Sick sinus syndrome is a group of conditions that affect heart rhythm and how quickly the heart beats (heart rate). When you have sick sinus syndrome, your heart rate may be too fast (tachycardia) or too slow (bradycardia), or it may switch between fast and slow. What are the causes? Your heartbeat is controlled by a structure in the heart called the sinoatrial (SA) node. Sick sinus syndrome happens when the SA node does not work properly (SA node dysfunction). It is not known what causes this. What increases the risk? This syndrome is more likely to develop in people who: ??? Are age 65 or older. ??? Have a family history of the syndrome. ??? Have had a heart attack or heart surgery. ??? Have sleep apnea. ??? Have coronary artery disease. ??? Have inflammation of the heart muscle (myocarditis) or the sac that surrounds the heart (pericarditis). ??? Use medicines such as beta blockers, some calcium channel blockers, or digoxin. ??? Have an abnormal level of thyroid hormone or electrolytes. ??? Have high blood pressure (hypertension). ??? Have had infections that affect the heart, like rheumatic fever or diphtheria. ??? Are born with heart defects (congenital heart disease). What are the signs or symptoms? Symptom of this syndrome include: ??? Fainting or feeling like you are going to faint. ??? Chest pain. ??? Shortness of breath. ??? Dizziness. ??? Feeling like your heart skips beats. ??? Feeling like your heart beats very quickly. ??? Tiredness. ??? Fatigue. ??? Confusion. Some people with this condition do not have any symptoms. Most people have few symptoms or very mild symptoms. How is this diagnosed? This syndrome may be diagnosed with tests, such as: ??? A test that measures electrical activity in the heart (electrocardiogram, or ECG). ??? A test in which you wear a device called a Holter monitor for 1?2 days. The device will record your heart?s electrical signals. ??? Placing a device to record the electrical activity of your heart over a longer period of time (implantable loop recorder). ??? An test to look at the electrical system of your heart (electrophysiology study). ??? Blood tests. How is this treated? Treatment for this syndrome may include: ??? Surgery to put a small, electrical device in your chest to correct your heartbeat (pacemaker). ??? Medicines to keep your heart from beating too quickly. ??? Stopping taking certain medicines as told by your health care provider. ??? Treatment of the underlying condition. If the syndrome is not causing any symptoms, you may not need treatment. Follow these instructions at home: ??? Take bnsd-ark-wbixbts and prescription medicines only as told by your health care provider. ??? Stay active and stay at a healthy weight. Ask your health care provider what level of activity is safe for you. ??? Eat a heart-healthy diet that includes fruits, vegetables, whole grains, low-fat dairy products, and lean proteins like poultry and eggs. Ask your health care provider if you should: ? Avoid any foods or drinks. ? Limit your salt (sodium) intake. ??? Limit alcohol intake to no more than 1 drink a day for non women and 2 drinks a day for men. One drink equals 12 oz of beer, 5 oz of wine, or 1? oz of hard liquor. ??? Do not use any products that contain nicotine or tobacco, such as cigarettes and e-cigarettes. If you need help quitting, ask your health care provider. ??? Keep all follow-up visits as told by your health care provider. This is important. Contact a health care provider if: ??? You have a cough that does not go away. ??? You have swelling in your feet or ankles. ??? You feel short of breath with activity. ??? You feel fatigued. Get help right away if: ??? You have chest pain or difficulty breathing. ??? You suddenly have weakness, numbness, or loss of movement on one side of your body. ??? You suddenly become very confused. ??? You suddenly lose the ability to speak or understand speech. ??? You feel like your heart is skipping beats. ??? You feel like your heart is beating very quickly. ??? You faint or feel like you are going to faint. These symptoms may represent a serious problem that is an emergency. Do not wait to see if the symptoms will go away. Get medical help right away. Call your local emergency services (911 in the [place] Do not drive yourself to the hospital. Summary ??? When you have sick sinus syndrome, your heart rate may be too fast (tachycardia) or too slow (bradycardia), or it may switch between fast and slow. ??? Treatment for this syndrome may include taking medicines and having a pacemaker placed in your chest. ??? If you have chest pain or difficulty breathing, get help right away. Do not drive yourself to the hospital. This information is not intended to replace advice given to you by your health care provider. Make sure you discuss any questions you have with your health care provider. Document Released: 10/12/2010 Document Revised: 06/30/2017 Document Reviewed: 06/21/2017 [employer] Interactive Patient Education ? 2019 [employer] Pharmacology Monitored Anesthesia Care, Care After These instructions provide you with information about caring for yourself after your procedure. Your health care provider may also give you more specific instructions. Your treatment has been planned according to current medical practices, but problems sometimes occur. Call your health care provider if you have any problems or questions after your procedure. What can I expect after the procedure? After your procedure, you may: ??? Feel sleepy for several hours. ??? Feel clumsy and have poor balance for several hours. ??? Feel forgetful about what happened after the procedure. ??? Have poor judgment for several hours. ??? Feel nauseous or vomit. ??? Have a sore throat if you had a breathing tube during the procedure. Follow these instructions at home: For at [...] your own. Eating and drinking ??? Follow the diet that is recommended by your health care provider. ??? If you vomit, drink water, juice, or soup when you can drink without vomiting. ??? Make sure you have little or no nausea before eating solid foods. General instructions ??? Take hqug-whw-sltsqpb and prescription medicines only as told by your health care provider. ??? If you have sleep apnea, surgery and certain medicines can increase your risk for breathing problems. Follow instructions from your health care provider about wearing your sleep device: ? Anytime you are sleeping, including during daytime naps. ? While taking prescription pain medicines, sleeping medicines, or medicines that make you drowsy. ??? If you smoke, do not smoke without supervision. ??? Keep all follow-up visits as told by your health care provider. This is important. Contact a health care provider if: ??? You keep feeling nauseous or you keep vomiting. ??? You feel light-headed. ??? You develop a rash. ??? You have a fever. Get help right away if: ??? You have trouble breathing. Summary ??? For several hours after your procedure, you may feel sleepy and have poor judgment. ??? Have a responsible adult stay with you for at least 24 hours or until you are awake and alert. This information is not intended to replace advice given to you by your health care provider. Make sure you discuss any questions you have with your health care provider. Document Released: 02/13/2017 Document Revised: 06/09/2018 Document Reviewed: 02/13/2017 [employer] Interactive Patient Education ? 2019 [employer] Preventive Health Heart Disease Prevention Heart disease is a leading cause of . There are many things you can do to help prevent heart disease. Be physically active Physical activity is good for your heart. It helps control your blood pressure, cholesterol levels, and weight. Try to be physically active every day. Ask your health care provider what activities are best for you. Be a healthy weight Extra weight can strain your heart and affect your blood pressure and cholesterol levels. Lose weight with diet and exercise if recommended by your health care provider. Eat heart-healthy foods Follow a healthy eating plan as recommended by your health care provider or dietitian. Heart-healthy foods include: ??? High-fiber foods. These include oat bran, oatmeal, and whole-grain breads and cereals. ??? Fruits and vegetables. Avoid: ??? Alcohol. ??? Fried foods. ??? Foods high in saturated fat. These include meats, butter, whole dairy products, shortening, and coconut or palm oil. ??? Salty foods. These include canned food, luncheon meat, salty snacks, and fast food. Keep your cholesterol levels under control Cholesterol is a substance that is used for many important functions. When your cholesterol levels are high, cholesterol can stick to the insides of your blood vessels, making them narrow or clog. This can lead to chest pain (angina) and a heart attack. Keep your cholesterol levels under control as recommended by your health care provider. Have your cholesterol checked at least once a year. Target cholesterol levels (in mg/dL) for most people are: ??? Total cholesterol below 200. ??? LDL cholesterol below 100. ??? HDL cholesterol above 40 in men and above 50 in women. ??? Triglycerides below 150. Keep your blood pressure under control Having high blood pressure (hypertension) puts you at risk for stroke and other forms of heart disease. Keep your blood pressure under control as recommended by your health care provider. Ask your health care provider if you need treatment to lower your blood pressure. If you are 18?39 years of age, have your blood pressure checked every 3?5 years. If you are 40 years of age or older, have your blood pressure checked every year. Do not use tobacco products Tobacco smoke can damage your heart and blood vessels. Do not use any tobacco products including cigarettes, chewing tobacco, or electronic cigarettes. If you need help quitting, ask your health care provider. Take medicines as directed Take medicines only as directed by your health care provider. Ask your health care provider whether you should take an aspirin every day. Taking aspirin can help reduce your risk of heart disease and stroke. Where to find more information: To find out more about heart disease, visit the [place] [employer]'s website at www.americanheart.org This information is not intended to replace advice given to you by your health care provider. Make sure you discuss any questions you have with your health care provider. Document Released: 06/07/2005 Document Revised: 03/23/2017 Document Reviewed: 12/18/2014 [employer] Interactive Patient Education ? 2019 [employer] Procedures Pacemaker Implantation, Adult, Care After This sheet gives you information about how to care for yourself after your procedure. Your health care provider may also give you more specific instructions. If you have problems or questions, contact your health care provider. What can I expect after the procedure? After the procedure, it is common to have: ??? Mild pain. ??? Slight bruising. ??? Some swelling over the incision. ??? A slight bump over the skin where the device was placed. Sometimes, it is possible to feel the device under the skin. This is normal. Follow these instructions at home: Medicines ??? Take fkzu-boa-mfkcsne and prescription medicines only as told by your health care provider. ??? If you were prescribed an antibiotic medicine, take it as told by your health care provider. Do not stop taking the antibiotic even if you start to feel better. Wound care ??? Do not remove the bandage on your chest until directed to do so by your health care provider. ??? After your bandage is removed, you may see pieces of tape called skin adhesive strips over the area where the cut was made (incision site). Let them fall off on their own. ??? Check the incision site every day to make sure it is not infected, bleeding, or starting to pull apart. ??? Do not use lotions or ointments near the incision site unless directed to do so. ??? Keep the incision area clean and dry for 2?3 days after the procedure or as directed by your health care provider. It takes several weeks for the incision site to completely heal. ??? Do not take baths, swim, or use a hot tub for 7?10 days or as otherwise directed by your health care provider. Activity ??? Do not drive or use heavy machinery while taking prescription pain medicine. ??? Do not drive for 24 hours if you were given a medicine to help you relax (sedative). ??? Check with your health care provider before you start to drive or play sports. ??? Avoid sudden jerking, pulling, or chopping movements that pull your upper arm far away from your body. Avoid these movements for at least 6 weeks or as long as told by your health care provider. ??? Do not lift your upper arm above your shoulders for at least 6 weeks or as long as told by your health care provider. This means no tennis, golf, or swimming. ??? You may go back to work when your health care provider says it is okay. Pacemaker care ??? You may be shown how to transfer data from your pacemaker through the phone to your health care provider. ??? Always let all health care providers know about your pacemaker before you have any medical procedures or tests. ??? Wear a medical ID bracelet or necklace stating that you have a pacemaker. Carry a pacemaker ID card with you at all times. ??? Your pacemaker battery will last for 5?15 years. Routine checks by your health care provider will let the health care provider know when the battery is starting to run down. The pacemaker will need to be replaced when the battery starts to run down. ??? Do not use amateur radio equipment or electric welding torches. Other electrical devices are safe to use, including power tools, lawn mowers, and speakers. If you are unsure of whether something is safe to use, ask your health care provider. ??? When using your cell phone, hold it to the ear opposite the pacemaker. Do not leave your cell phone in a pocket over the pacemaker. ??? Avoid places or objects that have a strong electric or magnetic field, including: ? Airport security rios. When at the airport, let officials know that you have a pacemaker. ? Power plants. ? Large electrical generators. ? Radiofrequency transmission towers, such as cell phone and radio towers. General instructions ??? Weigh yourself every day. If you suddenly gain weight, fluid may be building up in your body. ??? Keep all follow-up visits as told by your health care provider. This is important. Contact a health care provider if: ??? You gain weight suddenly. ??? Your legs or feet swell. ??? It feels like your heart is fluttering or skipping beats (heart palpitations). ??? You have chills or a fever. ??? You have more redness, swelling, or pain around your incisions. ??? You have more fluid or blood coming from your incisions. ??? Your incisions feel warm to the touch. ??? You have pus or a bad smell coming from your incisions. Get help right away if: ??? You have chest pain. ??? You have trouble breathing or are short of breath. ??? You become extremely tired. ??? You are light-headed or you faint. This information is not intended to replace advice given to you by your health care provider. Make sure you discuss any questions you have with your health care provider. Document Released: 05/13/2006 Document Revised: 08/05/2017 Document Reviewed: 08/05/2017 [employer] Patient Education ? 2019 [employer]. documented in this encounter Plan of Treatment Upcoming Encounters Date Type Department Care Team (Late st Contact Info) Description 01/15/2025 2:45 PM EDT Office Visit [facility] [place] [id number] [place] [phone] Jayla Ontiveros MD [facility] [address] [place] [address] 09/19/2025 2:30 PM EST Appointment [facility] [address] [facility] [address] [place] [address] documented as of this encounter Visit Diagnoses Not on filedocumented in this encounter Care Teams Air Quality Specialist Relationship Specialty Start Date End Date Komal Méndez APRN PCP - General Primary Care 09/07/22 01/03/24 Suzanne Mora APRN [address] [place] [address] PCP - General Family Medicine 01/04/24 Steven Marcelo MD [address] [place] [address] Surgeon General Surgery 09/07/22 Jayla Ontiveros MD [address] [facility] [address] [place] [address] Medical Oncologist Hematology and Oncology 09/07/22 Modesta Valadez, RN Nurse Navigator 03/03/23 03/20/24 documented as of this encounter
--- OUTSIDE RECORDS SUMMARY | 2024-10-05 17:18 | XMS_ITS | Data Portability ---
Author Organization [facility],, Main Office Address [address] [place] [address] Assessment Encounter Date Assessment Date Assessment LastModified by Organization Details LastModified Time 03/09/2018 03/09/2018 Annual gynecological exam performed. Patient will come back in a year unless there are new symptoms. [email or web address] Not available 03/09/2018 16:26:19 03/12/2019 03/12/2019 Annual gynecological exam performed. Patient will come back in a year unless there are new symptoms. aclaxon Not available 03/12/2019 15:50:38 05/13/2020 05/13/2020 Annual gynecological exam performed. Patient will come back in a year unless there are new symptoms. [email or web address] Not available 05/13/2020 15:17:00 Plan of Treatment Reminders Order Date Submit Date Provider Last Modified By Organization Details Last Modified Time Details Appointments None recorded. Lab urinalysi s, dipstick 2017 018 gveloudis Main Office, [address], [place], [address], 8 15:17:49 urinalysi s, dipstick 2019 020 aclaxdulce Main Office, [address], [place], [address], 0 20:47:44 Referral None recorded. Procedures None recorded. Surgeries None recorded. Imaging None recorded. Medication Orders None recorded. Patient TargetsNo targets recorded. Patient InstructionsNo instructions recorded. Reason for Referral None Reported. Results Created Date Observation Date Name Description Value Unit Range Abnormal Flag Note LastModifiedBy Organization Detail LastModifiedTime 03/09/20 18 03/11/2018 pap, LB Pap test thin prep NEGATI VE FOR INTRAE PITHEL IAL LESION OR MALIGN JAXSON normal ACCES OPAL #: [id number] [id number] [facility] e: Cervi grace/E ndoce rvica l LMP: menop ausal Date Taken : 03/09 Speci men Type: ThinP rep Vial Date Repor marcial: 03/11 Clini grace Data: LMP: menop ausal Last Pap: wnl (501 2016) Cytot ech: Edilberto Strauss z, CT( CP) Speci men Adequ acy: Satis facto ry for evalu ation Gener al Categ oriza tion: NEGAT ELISA FOR INTRA EPITH ELIAL LESIO N OR MALIG SAM Inter preta tion/ Resul t: Atrop hy Comme nts/R ecomm endat ions: Infla mmati on Study for HPV testi ng not indic ated. This speci men has been phil zed by the ThinP rep Imagi ng Syste m, an inter activ e compu ter syste m which feliz ts the lab in the scree selina of ThinP rep Pap Test slide s. Follo wing imagi ng, the slide was revie wed by a Cytot echno logis t and/o r Patho logis t. Techn ical servi ras provi ded by: Assoc iated Patho logis , [facility] d/b/a PathG roup [address], [address] [place] [address] Arthur kan M.D., [facility] Case revie wed and diagn osis rende red at: Assoc iated Patho logis ts [address], [address] [place] [address] Arthur kan M.D., [facility] ----- ----- ----- ----- ----- ----- ----- ----- ----- ----- ----- ----- Not Available [facility]) [address], [place], [address], 03/11/2018 13:02:59 03/09/20 18 03/09/2018 urina lysis , dipst ick Leukocytes - Not Available Main Of fice [address], [place], [address], 03/09/2018 16:11:15 03/09/20 18 03/09/2018 urina lysis , dipst ick Nitrite negati ve Not Available Main Office [address], [place], [address], 03/09/2018 16:11:15 03/09/20 18 03/09/2018 urina lysis , dipst ick Urobilinogen - Not Available Main Office [address], [place], [address], 03/09/2018 16:11:15 03/09/20 18 03/09/2018 urina lysis , dipst ick Protein - Not Available Main Offic e [address], [place], [address], 03/09/2018 16:11:15 03/09/20 18 03/09/2018 urina lysis , dipst ick pH 5.0 Not Available Main Offic e [address], [place], [address], 03/09/2018 16:11:15 03/09/20 18 03/09/2018 urina lysis , dipst ick Blood - Not Available Main Offic e [address], [place], [address], 03/09/2018 16:11:15 03/09/20 18 03/09/2018 urina lysis , dipst ick Specific Shamrock 1.000 Not Available Main O ffice [address], [place], [address], 03/09/2018 16:11:15 03/09/20 18 03/09/2018 urina lysis , dipst ick Ketone - Not Available Main Offic e [address], [place], [address], 03/09/2018 16:11:15 03/09/20 18 03/09/2018 urina lysis , dipst ick Bilirubin - Not Available Main Off ice [address], [place], [address], 03/09/2018 16:11:15 03/09/20 18 03/09/2018 urina lysis , dipst ick Glucose - Not Available Main Offic e [address], [place], [address], 03/09/2018 16:11:15 03/09/20 18 03/09/2018 urina lysis , dipst ick Appearance - Not Available Main Of fice [address], [place], [address], 03/09/2018 16:11:15 03/09/20 18 03/09/2018 urina lysis , dipst ick Color - Not Available Main Offic e [address], [place], [address], 03/09/2018 16:11:15 05/13/20 20 05/15/2020 pap, LB Pap test thin prep Negati ve for Intrae pithel ial Lesion or Malign jaxson normal ACCES OPAL #: [id number] [id number] [facility] e: Cervi grace/E ndoce rvica l 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 Follo wing imagi ng, the slide was revie wed by a Cytot echno logis t and/o r Patho logis t. End of Repor t Techn ical servi ras provi ded by [facility] Patho logis [place], d/b/a Path rou, [address] [place] [address] Madan Vitale MD, Labor ator Dire tor. Case revie wed and diagn osis rende red at [facility] Patho logis [place], d/b/a PathG rou, [address] [place] [address] Madan Vitale MD, Labor [email or web address] Dire tor. CONFI DENTI AL Not Available [facility] ([facility]) [address], [place], [address], 05/15/2020 08:36:47 05/13/20 20 05/13/2020 urina lysis , dipst ick Leukocytes - Not Available Main Of fice [address], [place], [address], 05/13/2020 15:17:08 05/13/20 20 05/13/2020 urina lysis , dipst ick Nitrite negati ve Not Available Main Office [address], [place], [address], 05/13/2020 15:17:08 05/13/20 20 05/13/2020 urina lysis , dipst ick Urobilinogen - Not Available Main Office [address], [place], [address], 05/13/2020 15:17:08 05/13/20 20 05/13/2020 urina lysis , dipst ick Protein - Not Available Main Offic e [address], [place], [address], 05/13/2020 15:17:08 05/13/20 20 05/13/2020 urina lysis , dipst ick pH 6.0 Not Available Main Offic e [address], [place], [address], 05/13/2020 15:17:08 05/13/20 20 05/13/2020 urina lysis , dipst ick Blood - Not Available Main Offic e [address], [place], [address], 05/13/2020 15:17:08 05/13/20 20 05/13/2020 urina lysis , dipst ick Specific Sham[place] 1.010 Not Available Main O ffice [address], [place], [address], 05/13/2020 15:17:08 05/13/20 20 05/13/2020 urina lysis , dipst ick Ketone - Not Available Main Offic e [address], [place], [address], 05/13/2020 15:17:08 05/13/20 20 05/13/2020 urina lysis , dipst ick Bilirubin - Not Available Main Off ice [address], [place], [address], 05/13/2020 15:17:08 05/13/20 20 05/13/2020 urina lysis , dipst ick Glucose - Not Available Main Offic e [address], [place], [address], 05/13/2020 15:17:08 03/30/20 18 03/29/2018 MAMMO , scree selina, bilat eral No observ ation record ed. [email or web address] [facility] [address], [place], [address], 03/14/2019 11:17:33 Result Notes None recorded. Problems Name Problem SNOMED Code Status Onset Date Resolution Date Notes Provider Name and Address Organization Details Recorded Time Hypertensive disorder 65594391 Active 2017 [facility], 8 16:04:52 Problem Notes None recorded. Procedures Surgical History Date Name Laterality Status Provider Name and Address Organization Details Recorded Time 05/13/20 20 Date of Last Pap Smear completed Laura Field [facility], 05/13/2020 15:23:59 03/29/20 18 Date of Last [facility], 05/03/2018 11:18:09 03/29/20 18 Most Recent Mammogram completed [facility] FERTILITY [facility] GYN[facility], 05/03/2018 11:18:03 03/07/20 17 Most Recent Bone Density completed Laura Field [facility] FERT[facility], 03/09/2018 16:09:28 11/07/19 13 Date of Last Colonoscopy completed Laura Field [facility] FERTILITY [facility]YN[facility], 03/09/2018 16:09:04 Tubal Ligation completed Laura Field [facility] FERTILITY [facility], 03/09/2018 16:07:46 Imaging Results Imaging Date Name Status LastModified by Organiz ation Details LastModified Time 03/29/2018 MAMMO, screening, bilateral completed [email or web address] [facility] [address], [place], [address], 03/14/2019 11:17:33 Procedure Notes None recorded. Medical Equipment None Reported. Allergies No known drug allergies Medications Name Sig Start Date Stop Date Status Note LastModified by Organization Details LastModified Time doxycycline hyclate 100 mg capsule 03/09 completed Not Available Not Available Not Available amlodipine 5 mg tablet active Not Available Not Available Not Available ciprofloxacin 500 mg tablet 03/12 completed Not Available Not Available Not Available baclofen 10 mg tablet 05/13 completed Not Available Not Available Not Available lisinopril 30 mg tablet 03/09 completed Not Available Not Available Not Available metoprolol succinate ER 25 mg tablet,extended release 24 hr active Not Available Not Availabl e Not Available cefuroxime axetil 500 mg tablet 03/12 completed Not Available Not Available Not Available lisinopril 40 mg tablet active Not Available Not Available Not Available ondansetron 4 mg disintegrating tablet active Not Available Not Available Not Available cefdinir 300 mg capsule 05/13 completed Not Available Not Available Not Available iron active Not Available Not Availa ble Not Available Vitamin D active Not Available Not Valerie ilable Not Available peg 3350-electrolyte s 236 gram-22.74 gram-6.74 gram-5.86 gram solution 05/13 completed Not Available Not Available Not Available diclofenac 1 % topical gel 05/13 completed Not Available Not Available Not Available Eliquis 5 mg tablet active Not Available Not Available Not Available Vitals Date Recorded Body height Body mass index (BMI) Body weight Heart rate Body temperature Systolic blood pressure Diastolic blood pressure Provider Name and Address Organization Details Last Updated DateTime 0 170.18 cm 22.4 kg/m2 47390.7 1 g 62 /min 97.8 [degF] 95 mm[Hg] 68 mm[Hg[facility], 0 15:22:07 Date Recorded Body height Body mass index (BMI) Body weight Respiratory rate Heart rate Systolic blood pressure Diastolic blood pressure Provider Name and Address Organization Details Last Updated DateTime 8 170.18 cm 21.3 kg/m2 15840.5 6 g 16 /min 62 /min 123 mm[Hg] 84 mm[Hg] [facility], 8 16:03:55 Date Recorded Body height Body mass index (BMI) Body weight Respiratory rate Heart rate Systolic blood pressure Diastolic blood pressure Provider Name and Address Organization Details Last Updated DateTime 9 170.18 cm 21.8 kg/m2 74455.3 4 g 16 /min 74 /min 107 mm[Hg] 70 mm[Hg] [facility], 9 15:21:28 Social History Question Answer Notes LastModified by Organizat ion Details LastModified Time Tobacco Smoking Status Never Smoker Not Available [employer] 09/02/2020 03:20:23 Able To Swim? Yes [email or web address] Informatio n not available 03/09/2018 Accident Related Injury No [email or web address] Information not available 03/09/2018 Do You Have An Advance Directive? No [id number] Information not available 09/02/2020 What Is Your Level Of Alcohol Consumption? None [id number] Information not available 09/02/2020 Animal Exposure? Yes [email or web address] Information not available 03/09/2018 Are You Currently Sexually Active With Anyone Who Has Traveled (within The Last 12 Weeks) To A Zika-affected Area? No [id number] Information not available 09/02/2020 Do You Wear A Helmet When Biking? No [id number] Information not available 09/02/2020 Are You Blind Or Do You Have Difficulty Seeing? No [id number] Information not available 09/02/2020 What Is Your Level Of Caffeine Consumption? Occasional [id number] Information not available 09/02/2020 Concerns About Meeting Basic Needs (food, Housing, Heat, Etc)? No [email or web address] Information not available 03/09/2018 Are You Currently Employed? Yes [id number] Information not available 09/02/2020 Are You Deaf Or Do You Have Serious Difficulty Hearing? No [id number] Information not available 09/02/2020 What Type Of Diet Are You Following? REGULAR [id number] Information not available 09/02/2020 Education 12 [email or web address] Information n ot available 03/09/2018 What Is The Highest Grade Or Level Of School You Have Completed Or The Highest Degree You Have Received? 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 1 [id number] Information not available 09/02/2020 On Those Days That You Engage In Moderate To Strenuous Exercise, How Many Minutes, On Average, Do You Exercise? 1 [id number] Information not available 09/02/2020 Family History Of Heart Disease? No Information not available 03/09/2018 Have There Been Any Changes To Your Family Or Social Situation? No [id number] Information not available 09/02/2020 How Hard Is It For You To Pay For The Very Basics Like Food, Housing, Medical Care, And Heating? 1 Information not available 03/09/2018 Are There Any Guns Present In Your Home? No [id number] Information not available 09/02/2020 Hard Of Hearing Or Deaf In One Or Both Ears? No [email or web address] Information not available 03/09/2018 Legally Blind In One Or Both Eyes? No [email or web address] Information not available 03/09/2018 Live Alone Or With Others? With Others [email or web address] Information not available 03/09/2018 Do You Have A Medical Power Of Museum Or Zoo Director? No [id number] Information not available 09/02/2020 What Was The Date Of Your Most Recent Tobacco Screening? 03/12/2019 [id number] Information not available 09/02/2020 How Many Children Do You Have? 4 [id number] Information not available 09/02/2020 Performs Monthly Self-breast Exam? No [email or web address] Information not available 03/09/2018 Do You Have Any Pets? Yes [id number] Information not available 09/02/2020 Difficulty Reading? No [id number] Information not available 03/09/2018 Seat Belts Used Routinely Yes [email or web address] Information not available 03/09/2018 Are You Sexually Active? No [id number] Information not available 09/02/2020 Smoke Alarm In Home Yes [email or web address] Information not available 03/09/2018 Do You Have Smoke And Carbon Monoxide Detectors In Your Home? Yes [id number] Information not available 09/02/2020 Are There Any Smokers In Your House? No [email or web address] Information not available 03/09/2018 How Much Tobacco Do You Smoke? No [id number] Information not available 09/02/2020 General Stress Level Low [email or web address] Information not available 03/09/2018 Do You Feel Stressed (tense, Restless, Nervous, Or Anxious, Or Unable To Sleep At Night)? 1 [id number] Information not available 09/02/2020 Do You Use Sunscreen Routinely? Yes [id number] Information not available 09/02/2020 TB Risk Low [email or web address] Information n ot available 03/09/2018 Has Tobacco Cessation Counseling Been Provided? No [id number] Information not available 09/02/2020 Difficulty Watching TV? No [email or web address] Information not available 03/09/2018 Sex: Unknown Functional Status Question Answer Note LastModified by Organizat ion Details LastModified Time Do you have difficulty walking or climbing stairs? No [id number] Information not available 09/02/2020 Do you have transportation difficulties? No [id number] Information not available 09/02/2020 Are you able to walk? YESWOREST [id number] Information not available 09/02/2020 Do you have difficulty doing errands alone? No [id number] Information not available 09/02/2020 Are you able to care for yourself? Yes [id number] Information n ot available 09/02/2020 Do you have difficulty dressing or bathing? No [id number] Information not available 09/02/2020 What is your exercise level? Occasional [id number] Information not available 09/02/2020 Mental Status Question Answer Note LastModified by Organization D etails LastModified Time Do you have difficulty concentrating, remembering or making decisions? No [id number] Information no t available 09/02/2020 Family History Nothing Reported. Medical History Condition Response Coronary Artery Disease N Other N Gout N Blood Diseases N Kidney Stones N Hyperthyroidism N Enlarged Prostate N Blood Transfusion N Dermatologic Disorders N Depression N COPD N Gestational Diabetes N Anxiety Disorder N Autoimmune disease N Muscle, Joint, or Bone Problems N Obesity N Vision or Eye Problems N Arthritis N Infertility N Polyps N Mental Disorder N Cancer N Varicosities N Stroke N Neurologic/Epilepsy N Headaches N Fibromyalgia N Kidney Disease N Heart Problems N Ear or Hearing Problems N Hospitalizations N Acne N Eating Disorder N Skin Problems N MRSA exposure N Constipation N Heartburn N Art (IVF or FET) N Bladder Problems N Bleeding Disorder N Tuberculosis N AIDS/HIV N G.E.R.D N Asthma N Trauma/Violence N Hepatitis N Pulmonary Embolism N Chronic Ear Infections N Chicken Pox Y Autism Spectrum Disorder (ASD) N Thrombophilias N Allergies (Food, seasonal, environmental ) N Colon Cancer N Drug/Latex Allergies/Reactions N Breast Cancer N Lung Disease N Hypothyroidism N Defects or Inherited Disease N Developmental or Behavioral Disorders N Breast Problem N Difficulty Swallowing N Hematologic disorders N Anesthesia Complications N History of STI N Deep Vein Thrombosis N Polycystic ovary syndrome N Meniere's disease N History of abnormal pap N Endometriosis N High Cholesterol N Liver Disease N Allergies/Hayfever N Kidney Problems N Thyroid Problems N GI Problems N ADD/ADHD N Anemia N Mental Illness N Psychiatric Illness N Diabetes N Ovarian Cancer N Pulmonary (TB, Asthma) N Seizures/Epilepsy N Congestive Heart Failure (CHF) N Hyperlipidemia N Eczema N Diverticulitis N Abuse/Domestic Violence N Depression/ depression N Heart Disease N Hypertension Y Pre-Eclampsia N Osteoporosis N Gynecological History Statement/Question Response Abnormal Pap N Date of Last Mammogram 03/29/2018 On BCP's at Conception? N STIs/STDs N HPV Vaccine N Age at Menarche 14 Current Control Method Menopause Most Recent Mammogram 03/29/2018 Age at First Child 20 If Post Menopausal, Age at Menopause 52 Date of Last Colonoscopy 11/07/2012 Most Recent Bone Density 03/07/2017 Sexually Active? N Menses Monthly N Date of Last Pap Smear 05/13/2020 Sexual Problems? N Obstetrics History GPAL:G 4 P 0 0 0 4 Type Value Living 4 Total 4 Past Encounters Encounter ID Performer Location Encounter Start Date Encounter Closed Date Diagnosis/Indication Diagnosis SNOMED-CT Code Diagnosis ICD10 Code [id number] Taran Nunez DO Main Office [address] [place] [address] 03/09/2018 15:08:50 03/09/2018 16:37:08 Gynecologic examination 38502558 Z01.419 Screening for mental disorders 573525786 Z13.89 Screening for malignant neoplasm of colon 006045183 Z12.11 [id number] Taran Nunez DO Main Office [address] [place] [address] 03/12/2019 15:12:17 03/12/2019 16:10:02 Gynecologic examination 21733324 Z01.419 Screening for malignant neoplasm of colon 220943134 Z12.11 [id number] Taran Nunez DO Main Office [address] [place] [address] 05/13/2020 15:03:03 05/13/2020 15:44:46 Gynecologic examination 01044223 Z01.419 Menopause 716753719 N95. 1 Vitamin deficiency 09408 002 E56.8 Screening for mental disorders 523580554 Z13.89 Health Concerns Section Related Observation LastModified by Organization Detai ls LastModified Time None Recorded Concern Status LastModified by Organization Details LastModified Time None Recorded Advance Directives Directive N: Payers Encounter Date Sequence Insurance Name Policy Number Policy Zendejas Covered Member ID Zendejas Member ID Guarantor Name 03/09/2018 1 [employer] (MEDICARE) Sheron Carvajal [id number] 03/09/2018 2 [employer] Carvajal [id number] 03/12/2019 1 [employer] (MEDICARE) Sheron Carvajal [id number] 03/12/2019 2 [employer] Carvajal [id number] 05/13/2020 1 [employer] (MEDICARE) Sheron Carvajal [id number] 05/13/2020 2 [employer] Carvajal [id number] Notes Date Note Type Note Provider Name and Address Organization Details Recorded Time 03/09/2018 text/html 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.Menopaus al Symptoms:no menopausal symptoms; normal vaginal lubrication Vaginal Bleeding:history of menopause having occurred Urinary Symptoms:no hematuria; no incontinence; no nocturia; no urinary frequency Vulva:no genital lesion; no vulvar atrophy Vagina:normal vaginal discharge; no vaginal atrophy Breast:no breast lump; no nipple discharge Sexual Complaints:no sexual complaints; normal libido; no pain during intercourse Psychological Symptoms:no depression; no anxiety Preventive Measures:has mammogram scheduled for late march Patient presents for annual Taran Nunez DO [address], [place], [address], [facility], 03/12/2018 13:15:42 03/12/2019 text/html 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.Menopaus al Symptoms:no menopausal symptoms; normal vaginal lubrication Vaginal Bleeding:history of menopause having occurred; no history of post menopausal bleeding Urinary Symptoms:no hematuria; no incontinence; no nocturia; no urinary frequency Vulva:no genital lesion; no vulvar atrophy Vagina:normal vaginal discharge; no vaginal atrophy Breast:no breast lump; no nipple discharge; no breast pain Sexual Complaints:no sexual complaints Psychological Symptoms:no depression; no anxiety Preventive Measures:mammogram performed within the past year Patient presents for annual DO [address] [place], [address], 03/18/2019 08:04:53 05/13/2020 text/html 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.Menopaus al Symptoms:no menopausal symptoms; normal vaginal lubrication Vaginal Bleeding:history of menopause having occurred; no history of post menopausal bleeding Urinary Symptoms:no hematuria; no incontinence; no nocturia; no urinary frequency Vulva:no genital lesion; no vulvar atrophy Vagina:normal vaginal discharge; no vaginal atrophy Breast:no breast lump; no nipple discharge; no breast pain Sexual Complaints:no sexual complaints Psychological Symptoms:no depression; no anxiety DO [address], [place], [address], [facility], 08/09/2020 16:52:29 OBGyn Episode No OBEpisode recorded.
--- OUTSIDE RECORDS SUMMARY | 2024-10-05 17:18 | XMS_ITS | Encounter Summary ---
Author Organization [employer] Address [address] [place] [address] Care Team Providers Care Gasoline Locomotive Crane Operator Name Role Phone Komal Méndez Nick ROSS Primary Care Provider + [phone] Steven Marcelo MD Unavailable [phone] Jayla Onitveros MD Unavailable [phone] Modesta Valadez RN Unavailable Unavailable Encounter Details Date Type Department Care Team (Late st Contact Info) Description 11/20/2018 Historic Encounter [address] [address] ProviderLamin Historical Social History Tobacco [...] Description 01/15/2025 2:45 PM EDT Office Visit [facility] - [address] [place] [address] Jayla Ontiveros MD [address] [facility] [address] [place], [place] [id number] 09/19/2025 2:30 PM EST Appointment [facility] [address] [facility] [address] [place] [address] documented as of this encounter Procedures Procedure Name Priority Date/Time Associated Diagnosis Comments CMP COMPREHENSIVE METABOLIC PANEL ([facility] BK DATA CONV) Routine 11/20/2018 11:41 AM EST documented in this encounter Results * (ABNORMAL) [facility] COMPREHENSIVE METABOLIC PANEL ([facility] BKR DATA CONV) (11/20/2018 11:41 AM EST) Sodium Level 139 136 - 146 mmol/L 11/20/2018 5:22 PM EST Potassium Level 4.1 3.5 - 5.1 mmol/L 11/20/2018 5:22 PM EST Chloride Level 100(L) 102 - 112 mmol/L 11/20/2018 5:22 PM EST Carbon Dioxide Level 31 21 - 32 mmol/L 11/20/2018 5:22 PM EST Anion Gap 12 9 - 20 11/20/2018 5:22 PM EST Calcium Level 9.5 8.5 - 10.1 mg/dL 11/20/2018 5:22 PM EST Glucose Level 97 74 - 106 mg/dL 11/20/2018 5:22 PM EST Comment: [facility] has become aware of sulfasalazine and sulfapyridine [...] administration of the drug. Blood Urea Nitrogen 25(H) 7 - 22 mg/dL 11/20/2018 5:22 PM EST Creatinine Level 1.21(H) 0.55 - 1.02 mg/dL 11/20/2018 5:22 PM EST Bun/Creatinine 20.7(H) 8.0 - 20.0 11/20/2018 5:22 PM EST Albumin Level 4.2 3.4 - 5.0 Gram/dL 11/20/2018 5:22 PM EST Protein, Total 7.6 6.4 - 8.2 Gram/dL 11/20/2018 5:22 PM EST A/G Ratio 1.2 1.1 - 2.5 11/20/2018 5:22 PM EST Alk Phos 105 27 - 136 Units/Lit er 11/20/2018 5:22 PM EST ALT 25 12 - 78 Units/Lit er 11/20/2018 5:22 PM EST Comment: [facility] has become aware of sulfasalazine and sulfapyridine [...] prior to administration of the drug. AST 22 5 - 37 Units/Lit er 11/20/2018 5:22 PM EST Comment: [facility] has become aware of sulfasalazine and sulfapyridine [...] to administration of the drug. Bilirubin, Total 0.2 0.2 - 1.3 mg/dL 11/20/2018 5:22 PM EST Globulin 3.4 1.5 - 4.5 Gram/dL 11/20/2018 5:22 PM EST eGFR 54(L) >=60 mL/min/1. 73m2 11/20/2018 5:22 PM EST Comment: GFR <60 suggests chronic kidney disease, if found over 3 month period. GFR <15 indicates renal failure. eGFR NonAfrican 45(L) >=60 mL/min/1. 73m2 11/20/2018 5:22 PM EST Comment: GFR <60 suggests chronic kidney disease, if found over 3 month period. GFR <15 indicates renal failure. Blood 11/20/2018 11:4 1 AM EST 11/20/2018 4:48 PM EST us Sleh Historical Provider LAB BLOOD ORDERABLES Fi nal Result [facility] [address] [phone] documented in this encounter Visit Diagnoses Not on filedocumented in this encounter Care Teams Gasoline Locomotive Crane Operator Relationship Specialty Start Date End Date Komal Méndez, PUSH CONNECTOR ASSEMBLER PCP - General Primary Care 09/07/22 01/03/24 Steven Marcelo MD [address] [facility] [address] [place] [address] Surgeon General Surgery 09/07/22 Jayla Ontiveros MD [address] [facility] [address] [place] [address] Medical Oncologist Hematology and Oncology 09/07/22 Modesta Valadez, RN Nurse Navigator 03/03/23 03/20/24 documented as of this encounter
--- OUTSIDE RECORDS SUMMARY | 2024-10-05 17:18 | XMS_ITS | Encounter Summary ---
Author Organization [employer] Address [address] [place] [address] Care Team Providers Care River Rat Name Role Phone Irene Méndezh Nick ROSS Primary Care Provider + [phone] Steven Marcelo MD Unavailable [phone] Jayla Ontiveros MD Unavailable [phone] Modesta Valadez RN Unavailable Unavailable Suzanne Mora APRN Primary Care Provider [phone] Encounter Details Date Type Department Care Team (Late st Contact Info) Description 03/19/2019 Transcribed Document [facility] [place] [address] ProviderNimisha MD [address] [place] [address] Social History Tobacco Use Types Packs/Day Years Used Date Smoking Tobacco: Never Assessed Comments Unknown Sex and Gender Information Value Date Recorded Sex Assigned at Not on file Legal Sex Female 4:30 PM CDT Gender Identity Not on file Sexual Orientation Not on file documented as of this encounter Miscellaneous Notes * Cerner Conversion Note - Historical ProviderMD - 03/19/2019 5:04 PM CDT [facility] [place] [address] SHERON CARVAJAL :1950 Visit Time:03/19/2019 Your Visit Summary Your Care Team Admitting Physician - EDSON VEGA MD Attending Physician - EDSON VEGA MD Primary Care Physician - RADHA MÉNDEZ NP-TIGIST Referring Physician - EDSON VEGA MD Your Diagnosis Sick sinus syndrome, Sick sinus syndrome Discharge Vitals Temperature 36.3 ??C Heart Rate (Monitored) 68 Respiratory Rate 30 Blood Pressure 110/63 What to do next Instructions From Your Care Team Do not drive for the next [address] Kee Mendez device discharge instructions sheet given to patient. No showers until site heals. Resume regular diet. Do not raise left arm above shoulder. Resume eliquis on 03-20-2019 in am. Discharge Activity: Discharge Activity: Other (use Special Instructions) Diet: Discharge Diet: Resume usual diet as tolerated Follow-Up Appointments Follow Up with EDSON VEGA MD When 04/05/2019 09:00 AM EDT Where: [facility] [address] [place] [address]- Medications What How Much When Instructions Next Dose amLODIPine 5 Milligram(s) Oral Every Day apixaban (Eliquis) 5 Milligram(s) Oral Two Times A Day ferrous sulfate 325 Milligram(s) Oral Every Day lisinopril (lisinopril 10 mg oral tablet) 4 Tablet(s) Oral Every Day Non Formulary (Non Formulary Medication) Oral [...] Please dispose of unused and medications per your retail pharmacy guidance. Allergies No Known Medication Allergies Immunizations This Visit No Immunizations Found Education Materials Sick Sinus Syndrome Sick sinus syndrome is [...] a device called a Holter monitor for 1???2 days. The device will record your heart???s electrical signals. ??? Placing a device to [...] Follow these instructions at home: ??? Take ubly-tlo-sbaesui and prescription medicines only as told by [...] of beer, 5 oz of wine, or 1?? oz of hard liquor. ??? Do not [...] 10/12/2010 Document Revised: 06/30/2017 Document Reviewed: 06/21/2017 [employer] Patient Education ?? 2019 [place]. Coronary Artery Disease, Male Coronary artery disease (CAD) is a condition in which the arteries that lead to the heart (coronary arteries) become narrow or blocked. The narrowing or blockage can lead to decreased blood flow to the heart. Prolonged reduced blood flow can cause a heart attack (myocardial infarction or FL). This condition may also be called coronary [...] these instructions at home: Medicines ??? Take wfgy-xqx-wzwupif and prescription medicines only as told by [...] of beer, 5 ounces of wine, or 1?? ounces of hard liquor. General instructions ??? [...] 05/21/2015 Document Revised: 10/14/2017 Document Reviewed: 10/14/2017 [employer] Interactive Patient Education ?? 2019 [employer] Heart Disease Prevention Heart disease is a [...] lower your blood pressure. If you are 18???39 years of age, have your blood pressure checked every 3???5 years. If you are 40 years of [...] out more about heart disease, visit the [place] [employer] Association's website at www.americanheart.org This information is not intended to replace advice given to you by your health care provider. Make sure you discuss any questions you have with your health care provider. Document Released: 06/07/2005 Document Revised: 03/23/2017 Document Reviewed: 12/18/2014 [employer] Interactive Patient Education ?? 2019 [employer] Pacemaker Implantation, Adult, Care After This sheet [...] these instructions at home: Medicines ??? Take jgvg-kme-dpiuptd and prescription medicines only as told by [...] the incision area clean and dry for 2???3 days after the procedure or as directed by your health care provider. It takes several weeks for the incision site to completely heal. ??? Do not take baths, swim, or use a hot tub for 7???10 days or as otherwise directed by your [...] ??? Your pacemaker battery will last for 5???15 years. Routine checks by your health care [...] 05/13/2006 Document Revised: 08/05/2017 Document Reviewed: 08/05/2017 [employer] Interactive Patient Education ?? 2019 [employer] Monitored Anesthesia Care, Care After These instructions [...] eating solid foods. General instructions ??? Take wnqw-wbe-mbhpmxb and prescription medicines only as told by [...] 02/13/2017 Document Revised: 06/09/2018 Document Reviewed: 02/13/2017 [employer] Interactive Patient Education ?? 2019 [employer] Emergency Awareness and Preventative Care STROKE [...] Assistance with quitting is available by contacting 2-168-RKIK-NOW. This is a free resource providing counseling, support, and referral. Or you may contact your personal physician. [facility] Suicide Prevention Lifeline: The National Suicide Prevention [...] CPR? There are two easy steps: Call 07-08- if you see a teen or adult [...] and how to prevent infections, visit www.cdc.gov/sepsis. Patient Portal Reminder: Be sure to sign up for the [facility] patient portal, which gives you 30/05 access to your medical information ??? including these discharge instructions ??? using your computer, smartphone, or tablet. Just go to [employer] to get started. Questions? Call . Test Results Laboratory or Other Results This Visit (last charted value for your 03/19/2019 visit) Hematology 03/19/19 11:45:00 Platelet Count: 197 K/uL -- Normal range between ( 163 and 369 ) Diagnostic Radiology 03/19/19 14:35:00 CR Chest 1 Vw Portable: CR Chest 1 Vw Portable Patient Name:RAMBO SHERON HURST I have received and understand this information and was given the opportunity to ask questions. Patient/Chalk Extruding Machine Operator Name: Patient/Chalk Extruding Machine Operator Signature: Relationship to Patient: Clinician/Hospital Chalk Extruding Machine Operator Signature: Date: documented in this encounter Plan of Treatment Upcoming Encounters Date Type Department Care Team (Late st Contact Info) Description 01/15/2025 2:45 PM EDT Office Visit [facility] - [address] [facility] [address] [place] [address] Jayla Ontiveros MD [address] [place] [address] 09/19/2025 2:30 PM EST Appointment [facility] Breast [facility] [address] [facility] [address] [place] [address] documented as of this encounter Visit Diagnoses Not on filedocumented in this encounter Care Teams River Rat Relationship Specialty Start Date End Date Radha MéndezCODY PCP - General Primary Care 09/07/22 01/03/24 Suzanne Mora APRN [address] [facility] [address] [place] [address] PCP - General Family Medicine 01/04/24 Steven Marcelo MD [address] [facility] [address] [place] [address] Surgeon General Surgery 09/07/22 Jayla Ontiveros MD [address] [facility] [address] [place] [address] Medical Oncologist Hematology and Oncology 09/07/22 Rory, Modesta Walsh RN Nurse Navigator 03/03/23 03/20/24 documented as of this encounter
--- OUTSIDE RECORDS SUMMARY | 2024-10-05 17:18 | XMS_ITS | Encounter Summary ---
Author Organization [facility] Address [address] [place] [address] Care Team Providers Care Terrazzo Helper Name Role Phone Unavailable Primary Care Provider Unavailabl e Encounter Details Date Type Department Care Team (Late st Contact Info) Description 10/29/2010 Historical Mammograp hy Encounter [facility] [address] [facility] [place] [address] Interface, See Report Social History [...] Associated Diagnosis Comments MAMMO HISTORICAL RESULT Routine 10/29/2010 3:06 PM EST documented in this encounter Results * MAMMO HISTORICAL RESULT (10/29/2010 3:06 PM EST) Anatomical Region Laterality Modality Breast Mammography 10/29/2010 3:06 PM EST Narrative 11/02/2010 5:43 PM EST ?[facility] ? [address] ??[place], [place] [address] ? NAME: SHERON CARVAJAL ? : ??[birth year] ??MR#: [id number] ? LOC: ?? DIS ? AGE: 59Y ?? Pt type: CO ?Exam Date: 10/29/101513 ? SEX: F ?? AN#:[id number] ?Ck-in#: [id number] ? LYLE,ROXANA ? [address] ? [place] ?[place] ?[address] ? Chk-in # ?? Order ?Exam ?[id number] ?? 0001 ? [id number] ??AB MAMM SCREEN BILAT DIG PNL ? Ord Diag: RTN MMG ? HISTORY: ?? 59 year old female with positive family history of ovarian cancer and breast cancer in her aunt. ?? BILATERAL DIGITAL MAMMOGRAM: ?? FILM COMPARISON: ??The exam is compared to prior exam digitized dated April 2008 from [facility]. ?? FINDINGS: ??The breast parenchymal pattern is a mixture of fat and heterogeneously dense fibroglandular tissue. ??There is no mass, cluster of microcalcifications or architectural distortion to suggest malignancy. ?? IMPRESSION: ??No findings suspicious for malignancy. ?? RECOMMENDATION: ??Yearly mammography, yearly physical exam, monthly self breast exam. ?? Bi-Rads II, benign. ?? The standard false negative rate of mammography is between 10 and 25%. Complex patterns or increased breast density will markedly elevate the false negative rate of mammography. ?? ICAD was utilized. ?? A letter, in lay terminology, with the results of this exam will be mailed to the patient. ?/READ BY/ ALEXSANDRA CHONG ?/Released By/ ALEXSANDRA CHONG ?Released By Date/Time: ??11/02/100 ?Flask Handler: ??JBW ? FINAL ? Page ??1 ? RADIOLOGY REPORT us See Report Interface IMG MAMMOGRAPHY ORDERABLES Final Result documented in this encounter Visit Diagnoses Not on filedocumented in this encounter
--- OUTSIDE RECORDS SUMMARY | 2024-10-05 17:18 | XMS_ITS | Encounter Summary ---
Author Organization [facility] ystem Address [address] [place] [address] Care Team Providers Care Member Service Representative Name Role Phone Unavailable Primary Care Provider Unavailabl e Encounter Details Date Type Department Care Team (Late st Contact Info) Description 02/02/[address] En[address] [facility] HISTORICAL CONV [address] [place] [address] Interface, See Report Social History [...] Associated Diagnosis Comments MAMMO HISTORICAL RESULT Routine 02/02/2012 2:57 PM EDT documented in this encounter Results * MAMMO HISTORICAL RESULT (02/02/2012 2:57 PM EDT) Anatomical Region Laterality Modality Breast Mammography 02/02/2012 2:57 PM EDT Narrative 02/03/2012 12:24 PM EDT ?[facility] ? [address] ??[place], [place] [address] ? NAME: SHERON CARVAJAL ? : ??[birth year] ??MR#: [id number] ? LOC: ?? DIS ? AGE: 61Y ?? Pt type: CO ?Exam Date: 02/02/12 1503 ? SEX: F ?? AN#:[id number] ?Ck-in#: [id number] ? BREEDING,BIRD L ? [address] ? [place] ?[place] ?[address] ? Chk-in # ?? Order ?Exam ?[id number] ?? 0001 ? [id number] ??AB MAMM SCREEN BILAT DIG PNL ? Ord Diag: RTN MMG ? ROUTINE DIGITAL SCREENING MAMMOGRAM ?? HISTORY: Routine screening. ?? IMAGE COMPARISON: ??10/29/10, 04/25/08. ?? TECHNIQUE: Routine digital bilateral MLO and CC views were obtained. ?? FINDINGS: ??There are scattered fibroglandular densities which could obscure a lesion on mammography. The fibroglandular pattern stable appearance bilaterally. This includes a stable nodular asymmetry in the anterior lateral left breast. There is no spiculated mass, worrisome microcalcifications, or architectural distortion to suggest development of malignancy. ?? IMPRESSION: No findings suspicious for malignancy. ? BI-RADS CATEGORY: ??II, BENIGN ?? RECOMMENDATION: Yearly mammogram, yearly physical exam, and monthly self breast exam. ?? iCAD was used. ?? The standard false negative rate of mammography is between 10 and 25%. Complex patterns or increased breast density will markedly elevate the false negative rate of mammography. ? FINAL ?CONTINUED ?Page ??1 ? RADIOLOGY REPORT ?[facility] ? [address] ??[place], [place] [address] ? NAME: SHERON CARVAJAL ? : ??[birth year] ??MR#: [id number] ? LOC: ?? DIS ? AGE: 61Y ?? Pt type: CO ?Exam Date: 02/02/12 1503 ? SEX: F ?? AN#:[id number] ?Ck-in#: [id number] ? BREEDING,BIRD L ? [address] ? [place] ?[place] ?[address] ? Checkin-Exam Code Summary ? [id number] A letter, in lay terminology, with the results of this exam will be mailed to the patient. ? If there is a palpable area of concern, biopsy should be considered regardless of imaging findings. ?/READ BY/ NIRU MASTERS ?/Released By/ NIRU MASTERS ?Released By Date/Time: ??02/03/12955 ?Lacquer Sprayer: ??LS ? FINAL ? Page ??2 ? RADIOLOGY REPORT us See Report Interface IMG MAMMOGRAPHY ORDERABLES Final Result documented in this encounter Visit Diagnoses Not on filedocumented in this encounter
--- OUTSIDE RECORDS SUMMARY | 2024-10-05 17:18 | XMS_ITS | Encounter Summary ---
Author Organization [employer] Address [address] [place] [address] Care Team Providers Care Therapeutic Recreation Director Name Role Phone Komal Méndez APRN Primary Care Provider + [phone] Steven Marcelo MD Unavailable [phone] Jayla Ontiveros MD Unavailable [phone] Modesta Valadez RN Unavailable Unavailable Suzanne Mora APRN Primary Care Provider [phone] Encounter Details Date Type Department Care Team (Late st Contact Info) Description 11/20/2018 Transcribed Document [facility] Family [place] [address] ProviderNimisha MD [address] [place] [address] Social History Tobacco Use Types [...] - Historical ProviderMD - 11/20/2018 2:55 PM REFERENCE ASSISTANT [place] [address] [address] [facility] [address] [address] PERSON INFORMATION Name SHERON CARVAJAL Age 67 Years 1950 Sex Female Language Qatari PCP PHY, UNKNOWN Marital Status Single Med Service Emergency Medicine Acct# Arrival 11/20/2018 11:11:00 Visit Reason Abdominal pain; ABDOMINAL PAIN Acuity 3 - Urgent LOS 000 03:44 Depart Date: 11/20/18 02:55 PM Address: [place] [address] Comment: PROVIDER INFORMATION Provider Role Assigned Unassigned VALERIO VILLARREAL MD ED Physician 11/20/2018 11:30:52 Coleen Escobar, REBAR BENDER Nurse 11/20/2018 11:36:09 DIAGNOSIS Abdominal pain; Hypertension; Vomiting PHYS DOC NOTES VITALS INFORMATION Vital Sign Triage Latest Temp Source Oral Oral Temp Mode Fahrenheit Fahrenheit Temp Fahrenheit 98.1 Deg F 98.1 Deg F Temp Celsius 02 Sat 100 % 100 % Respiratory Rate 16 Breaths/Min 16 Breaths/Min Peripheral Pulse Rate 65 bpm 65 bpm Apical Heart Rate Blood Pressure 165 mmHg / 75 mmHg 165 mmHg / 75 mmHg Comment: MEDICAL INFORMATION Allergy Info: No Known Medication Allergies Medications: Prescription Display dicyclomine (Bentyl 20 mg oral tablet) 1 Tab, Oral, Tab, QID, PRN Abdominal Pain, # 20 Tab, 0 Refill(s) ondansetron (ondansetron 8 mg oral tablet, disintegrating) 1 Tab, Oral, TID, PRN Nausea/Vomiting, # 9 Tab, 0 Refill(s) Comment: DISCHARGE INFORMATION Discharge Disposition: Home Discharge Location: PATIENT EDUCATION INFORMATION Instructions: DASH Eating Plan; Managing Your Hypertension; Hypertension, Zmeo-zx-Nshq; Nausea and Vomiting, Adult; Abdominal Pain, Adult Follow up: With: Address: When: Patient Resource Center Within As needed Comments: For assistance in the future with finding a New Primary Care Physician please contact the Patient Resource Center at [phone]. Your blood pressure was elevated during your [...] pain, fever, dizziness and or persistent vomiting. Comment: documented in this encounter Plan of Treatment Upcoming Encounters Date Type Department Care Team (Late st Contact Info) Description 01/15/2025 2:45 PM EDT Office Visit [facility] - [address] [place] [address] Jayla Ontiveros MD [address] [place], [place] [address] 09/19/2025 2:30 PM EST Appointment [facility] Breast [facility] [address] [place] [address] documented as of this encounter Visit Diagnoses Not on filedocumented in this encounter Care Teams Therapeutic Recreation Director Relationship Specialty Start Date End Date Komal Méndez APRN PCP - General Primary Care 09/07/22 01/03/24 Suzanne Mora, MODEL BUILDER DISPLAY [address] [place] [address] PCP - General Family Medicine 01/04/24 Steven Marcelo MD [address] [place] [address] Surgeon General Surgery 09/07/22 Jayla Ontiveros MD [address] [place] [address] Medical Oncologist Hematology and Oncology 09/07/22 Rory, Modesta Walsh, RN Nurse Navigator 03/03/23 03/20/24 documented as of this encounter
--- OUTSIDE RECORDS SUMMARY | 2024-10-05 17:18 | XMS_ITS | Encounter Summary ---
Author Organization [employer] Address [address] [place] [address] Care Team Providers Care Log Roller Name Role Phone Irene Méndezh Nick ROSS Primary Care Provider [phone] Steven Marcelo MD Unavailable [phone] Jayla Ontiveros MD Unavailable [phone] Modesta Valadez RN Unavailable Unavailable Suzanne Mora APRN Primary Care Provider [phone] Encounter Details Date Type Department Care Team (Late st Contact Info) Description 11/20/2018 Transcribed Document [facility] [place] [facility] [place] [address] ProviderNimisha MD [address] [place] [address] Social History Tobacco Use Types Packs/Day Years Used Date Smoking Tobacco: Never Assessed Comments Unknown Sex and Gender Information Value Date Recorded Sex Assigned at Not on file Legal Sex Female 4:30 PM CDT Gender Identity Not on file Sexual Orientation Not on file documented as of this encounter Miscellaneous Notes * Cerner Conversion Note - Historical ProviderMD - 11/20/2018 11:30 AM TREATMENT SPECIALIST Patient: SHERON CARVAJAL Age: 67 years Sex: Female : 1950 Associated Diagnoses: Abdominal pain; Vomiting; Hypertension Author: VALERIO VILLARREAL MD Basic Information Time seen: Date & time 11/20/2018 11:30:00, Voice recognition / tool room supervisor technology used for some documentation in this chart in attempt to mitigate substantial inefficiencies created by this electronic health record technology. As a result, there may be some typos and/or non-sensical language introduced into the chart that either are overlooked in editing/review and/or that I am unable to correct as patient care needs require me to prioritize my attention to bedside patient care rather than electronic documentation.. . History source: Patient. Arrival mode: Private vehicle. History limitation: None. Additional information: Chief Complaint from Nursing Triage Note : Chief Complaint 11/20/2018 11:18 EST Chief Complaint c/o abdominal pain starting at 0230 this am, denies n/v/d. state pain is sharp and radiates to her sides. p/w/d. . History of Present Illness Ms. Carvajal, presents via POV to room #22, alone. She reports that she was awakened at or around 2:30 this morning with abdominal pain and feeling somewhat nauseous. She states that she developed feeling that she was not have the stomach virus . She states that the pain has gradually progressed and is becoming more uncomfortable. There is no precipitating, exacerbating or mitigating measures. She states that her last bowel movement was this morning and it was described as regular . She is feeling somewhat nauseous. She denies any fevers or chills. The patient presents with abdominal pain. The onset was 9 hours ago. The course/duration of symptoms is constant, worsening and fluctuating in intensity. The character of symptoms is crampy. The degree at onset was minimal. The Location of pain at onset was diffuse and abdominal. The degree at present is moderate. The Location of pain at present is diffuse and abdominal. Radiating pain: none. The exacerbating factor is none. The relieving factor is none. Therapy today: none. Risk factors consist of hypertension, age and arrhythmia. Associated symptoms: nausea. Additional history: See note above.. Review of Systems Constitutional symptoms: No fever, no chills, no weakness, no fatigue, no decreased activity. Skin symptoms: No jaundice, no rash, no pruritus, no abrasions, no petechiae. Eye symptoms: Vision unchanged. ENMT symptoms: No sore throat, no nasal congestion. Respiratory symptoms: No shortness of breath, no orthopnea, no cough. Cardiovascular symptoms: No chest pain, no palpitations. Gastrointestinal symptoms: Abdominal pain, moderate, cramping, nausea, no vomiting, no diarrhea, no constipation, no rectal bleeding. Genitourinary symptoms: No dysuria, no hematuria, no vaginal bleeding, no vaginal discharge. Musculoskeletal symptoms: No back pain, no Muscle pain, no Joint pain. Neurologic symptoms: No headache, no dizziness, no altered level of consciousness, no numbness, no tingling, no weakness. Psychiatric symptoms: No anxiety, no depression. Endocrine symptoms: No polyuria, no polydipsia. Hematologic/Lymphatic symptoms: Bleeding tendency negative, bruising tendency negative, no petechiae. Allergy/immunologic symptoms: No recurrent infections, no impaired immunity. Health Status Allergies: Allergic Reactions (Selected) No Known Medication Allergies. Medications: (Selected) Documented Medications Documented Eliquis: Oral, BID, 0 Refill(s) Metoprolol Succinate ER: Oral, Daily, 0 Refill(s) Vitamin D2: Oral, 0 Refill(s) amLODIPine: Oral, Daily, 0 Refill(s) cetirizine: Daily, 0 Refill(s) ferrous sulfate: Oral, 0 Refill(s) lisinopril 10 mg oral tablet: 1 Tab, Oral, Daily, 30 Tab. Immunizations: Unknown. Past Medical/ Family/ Social History Medical history Cardiovascular: hypertension, atrial fibrillation. Genitourinary: chronic renal insufficiency. Surgical history: Bilateral tubal ligation.. Family history: Reviewed as documented in chart. Social history: Social & Psychosocial Habits Alcohol 08/21/2018 Alcohol Use History, Social Habits No Nutrition/Health 01/01/2014 Caffeine intake amount: 4 Substance Abuse 11/04/2017 Recreational Drug Use History No Recreational Drug Use Last 12 Months No Tobacco 11/04/2017 Smoking Status Never smoker . Problem list: Active Problems (3) Atrial fibrillation High blood pressure Kidney disease . Physical Examination Vital Signs Vital Signs/Vital Measures 11/20/2018 11:18 EST Temperature Source Oral Temperature Mode Fahrenheit Temperature, Fahrenheit 98.1 Deg F Clinical Temperature, C 36.7 Deg C Peripheral Pulse Rate 65 bpm Respiratory Rate 16 Breaths/Min Systolic Blood Pressure 165 mmHg HI Diastolic Blood Pressure 75 mmHg Oxygen Saturation 100 % Oxygen Therapy Mode Room air . Measurements 11/20/2018 11:18 EST Height Source Stated Height Entry Format [place] Height/Length, MALTESE (ft) 5 ft Height/Length MALTESE 7 Inch CLINICALHEIGHT 170.18 cm [place] Body Weight 61.16 kg Weight Source, ED Standing scale Weight Entry Format Art Weight [place] lb 135 lb CLINICALWEIGHT 61.36 kg Body Surface Area (BSA) 1.71 m2 Body Mass Index 21.2 kg/m2 . Oxygen Saturation 11/20/2018 11:18 EST Oxygen Saturation 100 % . General: Alert, no acute distress, well nourished, calm, cooperative, well hydrated, Ambulation status: With steady gait. Skin: Warm, dry, pink, intact, no pallor, no rash. Head: Normocephalic, atraumatic. Neck: Supple, trachea midline, no tenderness. Eye: Pupils are equal, round and reactive to light, extraocular movements are intact, normal conjunctiva. Ears, nose, mouth and throat: Oral mucosa moist. Cardiovascular: Regular rate and rhythm, No murmur, Normal peripheral perfusion, No edema. Respiratory: Lungs are clear to auscultation, respirations are non-labored, breath sounds are equal, Symmetrical chest wall expansion. Chest wall: No tenderness, No deformity. Back: Nontender, Normal range of motion. Musculoskeletal: Normal ROM, normal strength, no tenderness, no swelling. Gastrointestinal: Soft, Nontender, Non distended, Normal bowel sounds, No organomegaly. Genitourinary: Exam deferred. Neurological: Alert and oriented to person, place, time, and situation. Lymphatics: No lymphadenopathy. Psychiatric: Cooperative, appropriate mood & affect. Medical Decision Making Differential Diagnosis: Abdominal pain, bowel obstruction, irritable bowel syndrome, urinary tract infection, ischemic bowel, diverticulitis, incarcerated hernia. Documents reviewed: Emergency department nurses' notes, emergency department records, prior records. Orders Include Previous Orders (Selected) Inpatient Orders Ordered Discharge: Saline Lock Insert: Cancelled (Canceled) MY Digital Screen BILAT: MY Digital Screen BILAT: Completed .Urinalysis Microscopic: CBC no Diff (Hemogram): CMP Comprehensive Metabolic Panel: CT Abdomen Pelvis WO: ED Adult Fall Risk Assessment: ED Adult Triage: ED Clinical Reconciliation: ED debate director: Lactic Acid Level with Reflex if Indicated: Lipase Level: Normal Saline Bolus: 1,000 mL, 250 mL/Hr, IV Piggyback, 1-Time Urinalysis w Culture if Indicated: Zofran: 4 mg, IV Push, 1-Time morphine: 4 mg, IV Push, 1-Time morphine: UBC, 1-Time ondansetron: UBC, 1-Time Prescriptions Prescribed Bentyl 20 mg oral tablet: 1 Tab, Oral, QID, for 5 Day(s), PRN: Abdominal Pain, 20 Tab, 0 Refill(s) ondansetron 8 mg oral tablet, disintegratin Tab, Oral, TID, for 3 Day(s), PRN: Nausea/Vomiting, 9 Tab, 0 Refill(s). Results review: Lab results : Lab Results 11/20/2018 11:57 EST Urine Type. U CleanCatch Urine Color Yellow Urine Appearance Clear Urine Specific [employer] 1.013 Urine pH Dipstick 6.5 Urine Leukocyte Esterase Negative Urine Nitrite Negative Urine Protein Dipstick Negative Urine Glucose Dipstick Negative Urine Ketones Dipstick Negative Urine Urobilinogen Dipstick 0.2 EU/dL Urine Bilirubin Dipstick Negative mg/dL Urine Blood Dipstick Negative Ur RBC None Seen Ur WBC 0-2 /HPF Ur Bacteria Trace Ur Squamous Epithelial Cells 2-5 /HPF 11/20/2018 11:41 EST Sodium Level 139 mmol/L Potassium Level 4.1 mmol/L Chloride Level 100 mmol/L LOW Carbon Dioxide Level 31 mmol/L Anion Gap 12 Glucose Level 97 mg/dL Blood Urea Nitrogen 25 mg/dL HI Creatinine Level 1.21 mg/dL HI eGFR 54 mL/min/1.73m2 LOW eGFR NonAfrican 45 mL/min/1.73m2 LOW Bun/Creatinine 20.7 HI Calcium Level 9.5 mg/dL Protein Total 7.6 Gram/dL Albumin Level 4.2 Gram/dL Globulin 3.4 Gram/dL A/G Ratio 1.2 Bilirubin Total 0.2 mg/dL Alk Phos 105 Units/Liter AST 22 Units/Liter ALT 25 Units/Liter Lipase Level 591 Units/Liter HI Lactic Acid Level 0.6 mmol/L WBC 7.5 K/uL RBC 4.47 Million/uL Hgb 13.3 Gram/dL Hct 40.9 % MCV 91.5 fL MCH 29.8 pg MCHC 32.5 Gram/dL Platelet Count 200 K/uL MPV 9.7 fL RDW 13.0 % Slide Review No . Radiology results: Radiology Results (Last 48 hours) [id number] -- 11/20/2018 11:11 CT Abdomen Pelvis WO (11/20/2018 12:13) Result: CT SCAN OF THE ABDOMEN AND PELVIS WITHOUT CONTRAST 11/20/2018 11:42AM HISTORY: Epigastric pain.COMPARISON: None.PROCEDURE: Axial images were obtained from the lung bases to the pubicsymphysis by computed tomography. This study was performed withtechniques to keep radiation doses as low as reasonably achievable,(ALARA). Individualized dose reduction techniques using automatedexposure control or adjustment of mA and/or kV according to the patientsize were employed.FINDINGS: ABDOMEN: The lung bases are clear. The gallbladder is contracted. Theright kidney is atrophic. There is no hydronephrosis or nephrolithiasis.The solid organs are otherwise unremarkable. There is no free fluid oradenopathy.PELVIS: The appendix is normal. The uterus is deviated to the left. Theurinary bladder is unremarkable. There is diverticular change of thesigmoid colon. There is no free fluid or adenopathy.IMPRESSION: No acute process. . Impression and Plan Diagnosis Abdominal pain - Discharge, Emergency medicine, Medical Vomiting - Discharge, Emergency medicine, Medical Hypertension - Discharge, Emergency medicine, Medical Plan Condition: Improved, Stable. Disposition: Discharged Admit/Transfer/Discharge: Discharge (Order): Start: 11/20/2018 14:56 EST, Discharge to: Home. Prescriptions: Prescription [facility]: ondansetron 8 mg oral tablet, disintegrating (Prescribe): 1 Tab, Oral, TID, for 3 Day(s), PRN: Nausea/Vomiting, 9 Tab, 0 Refill(s) Bentyl 20 mg oral tablet (Prescribe): 1 Tab, Oral, QID, for 5 Day(s), PRN: Abdominal Pain, 20 Tab, 0 Refill(s). Patient was given the following educational materials: Abdominal Pain, Adult, Nausea and Vomiting, Adult, Hypertension, Binw-jy-Ezik, Managing Your Hypertension, DASH Eating Plan. Limitations: Limited activity. Follow up with: [facility] Resource [facility] Within As needed For assistance in the future with finding a New Primary Care Physician please contact the Patient Resource Center at [phone]. Your blood pressure was elevated during your [...] pain, fever, dizziness and or persistent vomiting. . Counseled: Patient, Regarding diagnosis, Regarding diagnostic results, Regarding treatment plan, Regarding prescription, Patient indicated understanding of instructions, Pre-hypertension/Hypertension: The patient has been informed that they may have pre-hypertension or Hypertension based on a blood pressure reading in the emergency department. I recommend that the patient call the primary care provider listed on their discharge instructions or a physician of their choice this week to arrange follow up for further evaluation of possible pre-hypertension or Hypertension.. documented in this encounter Plan of Treatment Upcoming Encounters Date Type Department Care Team (Late st Contact Info) Description 01/15/2025 2:45 PM EDT Office Visit [facility] [address] [place] [address] Jayla Ontiveros MD [address] [place], [place] [id number] 09/19/2025 2:30 PM EST Appointment [facility] [address] [place] [address] documented as of this encounter Visit Diagnoses Not on filedocumented in this encounter Care Teams Log Roller Relationship Specialty Start Date End Date Komal Méndez APRN PCP - General Primary Care 09/07/22 01/03/24 Suzanne Mora APRN [address] [facility] [address] [place] [address] PCP - General Family Medicine 01/04/24 Steven Marcelo MD [address] [facility] [address] [place] [address] Surgeon General Surgery 09/07/22 Jayla Ontiveros MD [facility] [place] [address] Medical Oncologist Hematology and Oncology 09/07/22 Rory, Modesta Walsh RN Nurse Navigator 03/03/23 03/20/24 documented as of this encounter
== END 2024-10-05 23:59 | disposition home or self-care (01) ==
LOC: LAB.DROPOF 17:09
PROVIDERS: PCP Family Medicine; Visit Provider Family Medicine
DX: R06.02 Shortness of breath (principal)
CPT/HCPCS: 87636